=== PATIENT | male | born 1935 | race Caucasian/White ===

== ENCOUNTER → 2018-05-17 | Day surgery (SDC) | payer MEDICARE, BC ==
[2018-05-16 14:18] LABS: BASOPHILS # (AUTO) 0.1 (0.0-0.1); BASOPHILS % 0.4 % (0.0-1.0); EOSINOPHILS # (AUTO) 0.6 (0.0-0.4); EOSINOPHILS % 3.8 % (0.0-6.0); HEMATOCRIT 31.6 % (38.2-49.6); HEMOGLOBIN 9.6 g/dL (14.0-18.0); LYMPHOCYTES # (AUTO) 1.5 (1.0-3.2); LYMPHOCYTES % 10.1 % (18.0-39.1); MEAN CORPUSCULAR HEMOGLOBIN 23.9 pg (28-32); MEAN CORPUSCULAR HGB CONC 30.4 g/dL (31-35); MEAN CORPUSCULAR VOLUME 78.6 fL (81-99); MONOCYTES # (AUTO) 1.3 (0.2-0.8); MONOCYTES % 8.7 % (4.4-11.3); NEUTROPHILS % 76.2 % (38.7-80.0); PLATELET COUNT 228 x10e3/uL (140-360); RED BLOOD COUNT 4.02 x10e6/uL (4.3-5.7); RED CELL DISTRIBUTION WIDTH 17.2 % (11.7-14.4)
[2018-05-16 14:28] LABS: INR 1.07; PROTHROMBIN TIME 13.1 seconds (11.9-14.5)
[2018-05-16 14:37] LABS: ALBUMIN 3.7 g/dL (3.5-5.0); ALBUMIN/GLOBULIN RATIO 1.2 (0.8-2.0); ANION GAP 19.5 mmol/L (8-16); CALCIUM 9.5 mg/dL (8.4-10.2); CREATININE, SERUM 2.01 mg/dL (0.72-1.25); POTASSIUM 4.5 mmol/L (3.5-5.1)
[~2018-05-17] VITALS: Ht 177.8 cm; Wt 120.2 kg
[~2018-05-17] MED LIST: ADVAIR 250-501 EACH INH; ASPIRIN81 MG PO; DIOVAN HCT 1601 EAC1 PO; FENTANYL CITRATE/PF 100MCG/2 ML INJ ONE; FIBER LAXATIVE625 MG PO; FLUTICASONE TOP; FUROSEMIDE40 MG PO; GLIMEPIRIDE4 MG PO; HEPARIN SOD (PORCINE) 1000 UNIT/ML 30ML ONE; HEPARIN SOD/SOD CHLORIDE 2,000 ML ONE; IOPAMIDOL 300MG/ML 100 ML INFUS..BTL IV ONE; IOPAMIDOL 370 MG/ML 200 ML INFUS..BTL INJ ONE; JANUVIA100 MG PO; LIDOCAINE HCL 2% LOCAL 20 ML VIAL ONE; METFORMIN HCL1000 MG PO; METOLAZONE5 MG PO; METOPROLOL SUCC50 MG PO; MIDAZOLAM HCL 2 MG/2 ML VIAL ONE; MONTELUKAST SOD10 MG PO; NITROGLYCERIN 400 MCG/SPRAY 4.9 GM BTL ONE; NITROGLYCERIN/D5W 200 MCG/ML 250 ML ONE; PANTOPRAZOLE SO40 MG PO; PLAVIX75 MG PO; PRASUGREL 10 MG TAB ONE; SODIUM CHLORIDE 0.9% 1000ML 1,000 ML ONE; VERAPAMIL HCL 2.5 MG/ML 2 ML VIAL ONE; VESICARE5 MG PO; VYTORIN 10-401 EACH PO
--- OUTSIDE RECORDS SUMMARY | 2018-06-23 04:42 | XMS REPORT | CCD ---
Author Author [facility] Outpatient Imaging - [facility] - [place] Address Unknown Phone Unavailable Care Team Providers Care Resort Desk Clerk Name Role Phone Martin Pace CP Allergies, Adverse Reactions, Alerts Substance Reaction Status penicillin Active
--- OUTSIDE RECORDS SUMMARY | 2018-06-23 04:42 | XMS REPORT | Summary of Care ---
Author Author [facility] [place] Organization [facility] [place] Address Unknown Phone Unavailable Encounter HQ [email or web address]_cedrick(FIN) [id number] Date(s): 05/11/17 - 05/11/17 [facility] [place] [address] [place] [phone] Discharge Disposition: Home or Self Care Attending Physician: Rancho Pace MD Vital Signs No data available for this section Problem List Condition Effective Dates Status Health Status Informant Acute Resolved laryngopharyngitis(C onfirmed) Aortic Stenosis With Active Doming(Confirmed) Diabetes mellitus Active type II(Confirmed) 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) Hypertension(Confirm Resolved ed) Allergies, Adverse Reactions, Alerts Substance Reaction Severity Status penicillin Active Medications No data available for this section Results No data available for this section Immunizations No data available for this section Procedures No data available for this section Social History Social History Type Response Smoking Status Former smoker; Ready to change: No; Concerns about tobacco use in household: No; Exposure to Tobacco Smoke None; Cigarette Smoking Last 365 Days No; Reg Smoking Cessation Counseling No Assessment and Plan No data available for this section
--- OUTSIDE RECORDS SUMMARY | 2018-06-23 04:42 | XMS REPORT | Summary of Care ---
Author Organization Unknown Address Unknown Phone Unavailable Encounter HQ Encntr_cedrick(LUZMARIA) [id number] Date(s): 10/04/14 - 10/04/14 [facility] Outpatient Imaging - [place] [id number]- [facility] Discharge Disposition: Home Physician Attending: Rancho Pace MD Reason for Visit V70.0 - ROUTINE MEDICAL Problem List No data available for this section Allergies, Adverse Reactions, Alerts Substance Reaction Severity Status penicillin Active Medications No data available for this section Medications Administered During Your Visit No data available for this section Immunizations No data available for this section Social History Social History Type Response
--- OUTSIDE RECORDS SUMMARY | 2018-06-23 04:42 | XMS REPORT | Summary of Care ---
Author Author [facility] Organization [facility] Address Unknown Phone Unavailable Encounter MARCK Kelly(LUZMARIA) [id number] Date(s): 10/09/16 - 10/11/16 [facility] [address] [employer] provided by [employer] [facility] [employer] [place] [address]- Discharge Disposition: Home or Self Care Attending Physician: Bridget Herzog MD Admitting Physician: Bridget Herzog MD Referring Physician: Bridget Herzog MD Vital Signs 1 2 3 Most recent to oldest [Reference Range]: 177.8 cm (10/09/16 5:52 AM) Height 116.96 kg (10/11/16 6:23 AM) 119.682 kg (10/10/16 4:25 AM) Current Weight 99.0 DegF (10/11/16 8:17 AM) 99.2 DegF *HI* (10/11/16 7:45 AM) 98.1 DegF (10/11/16 6:23 AM) Temperature Oral [96.4-99.1 DegF] 126/75 mmHg (10/11/16 10:01 AM) 146/119 mmHg *HI* (10/11/16 9:00 AM) 142/71 mmHg *HI* (10/11/16 6:00 AM) Blood Pressure [90-140/60-90 mmHg] 18 BRMIN (10/11/16 6:00 AM) 18 BRMIN (10/11/16 5:10 AM) 20 BRMIN (10/11/16 4:04 AM) Respiratory Rate [14-20 BRMIN] 121.818 kg (10/09/16 5:52 AM) Weight 38.53 m2 (10/09/16 5:52 AM) Body Mass Index Problem List Condition Effective Dates Status Health Status Informant Acute Resolved laryngopharyngitis(C onfirmed) Aortic Stenosis With Active Doming(Confirmed) Diabetes mellitus Active type II(Confirmed) Hypertension(Confirm Resolved ed) Allergies, Adverse Reactions, Alerts Substance Reaction Severity Status penicillin Active Medications acetaminophen-hydrocodone 325 mg-5 mg oral tablet 1 tab, Route: PO, Drug Form: TAB, Dosing Weight 121.818, kg, Q4H, PRN Pain Score 4-6, Start date: 10/09/16 11:17:00 FITNESS ATTENDANT, Duration: 30 day, Stop date: 11/08 11:16:00 FITNESS ATTENDANT Notes: (Same as: Cutler 325/5) Do not exceed 4gm/day of acetaminophen. Start Date: 10/09/16 Stop Date: 10/11/16 Status: Discontinued acetaminophen-hydrocodone 325 mg-5 mg oral tablet 2 tab, Route: PO, Drug Form: TAB, Dosing Weight 121.818, kg, Q4H, PRN Pain Score 7-10, Start date: 10/09/16 11:17:00 FITNESS ATTENDANT, Duration: 30 day, Stop date: 11:16:00 FITNESS ATTENDANT Notes: (Same as: Cutler 325/5) Do not exceed 4gm/day of acetaminophen. Start Date: 10/09/16 Stop Date: 10/11/16 Status: Discontinued amLODIPine 5 mg, 1 tab, Route: PO, Drug form: TAB, Daily, Dosing Weight 121.818, kg, Start date: 10/10/16 9:00:00 FITNESS ATTENDANT, Duration: 30 day, Stop date: 11/08/16 9:00:00 FITNESS ATTENDANT Notes: (Same as: Norvasc) Start Date: 10/10/16 Stop Date: 10/11/16 Status: Discontinued amLODIPine 2.5 mg, 1 tab, Route: PO, Drug form: TAB, Daily, Dosing Weight 121.818, kg, Start date: 10/10/16 9:00:00 FITNESS ATTENDANT, Duration: 30 day, Stop date: 11/08/16 9:00:00 FITNESS ATTENDANT Notes: (Same as: Norvasc) Start Date: 10/10/16 Stop Date: 10/10/16 Status: Canceled amLODIPine 5 mg oral tablet 5 mg=1 tab, PO, Daily, # 30 tab, 3 Refill(s) Start Date: 10/11/16 Status: Ordered ANES dexamethasone 4 mg, 0.4 mL, Route: IVP, Drug form: INJ, ONCE, Dosing Weight 121.818, kg, PRN Nausea & Vomiting, Start date: 10/09/16 11:57:00 FITNESS ATTENDANT Notes: MEDICATION WASTE Product Size: 10 mgProduct Wasted: ___ mg Start Date: 10/09/16 Stop Date: 10/09/16 Status: Discontinued ANES fentaNYL 50 microgram, 1 mL, Route: IVP, Drug form: INJ, Q5Min, Dosing Weight 121.818, kg , PRN Pain Score 7-10, Priority: Routine, Start date: 10/09/16 11:57:00 FITNESS ATTENDANT, Duration: 2 doses or times, Stop date: Limited # of times Notes: (Same as: Sublimaze) Preservative free. Start Date: 10/09/16 Stop Date: 10/09/16 Status: Discontinued ANES fentaNYL 25 microgram, 0.5 mL, Route: IVP, Drug form: INJ, Q5Min, Dosing Weight 121.818, kg, PRN Pain Score 4-6, Priority: Routine, Start date: 10/09/16 11:57:00 FITNESS ATTENDANT, Duration: 4 doses or times, Stop date: Limited # of times Notes: (Same as: Sublimaze) Preservative free. Start Date: 10/09/16 Stop Date: 10/09/16 Status: Discontinued ANES hydrALAZINE 10 mg, 0.5 mL, Route: IVP, Drug form: INJ, Q20Min, Dosing Weight 121.818, kg, PRN Elevated BP, Start date: 10/09/16 11:57:00 FITNESS ATTENDANT, Duration: 2 doses or times, Stop date: Limited # of times Notes: (Same as: Apresoline)Push over 5 minutes Start Date: 10/09/16 Stop Date: 10/09/16 Status: Discontinued ANES labetalol 10 mg, 2 mL, Route: IVP, Drug form: INJ, Q5Min, Dosing Weight 121.818, kg, PRN Elevated BP, Start date: 10/09/16 11:57:00 FITNESS ATTENDANT, Duration: 5 doses or times, Stop date: Limited # of times Start Date: 10/09/16 Stop Date: 10/09/16 Status: Discontinued ANES ondansetron 4 mg, 2 mL, Route: IVP, Drug form: INJ, ONCE, Dosing Weight 121.818, kg, PRN Nausea & Vomiting, Start date: 10/09/16 11:57:00 FITNESS ATTENDANT Notes: (Same as: Zofran) MEDICATION WASTE Product Size: 4 mgProduct Wasted: ___ mg Start Date: 10/09/16 Stop Date: 10/09/16 Status: Discontinued ANES promethazine 6.25 mg, 0.13 mL, Route: IVPB, Drug form: INJ, ONCE, Dosing Weight 121.818, kg, PRN Nausea & Vomiting, Start date: 10/09/16 11:57:00 FITNESS ATTENDANT Notes: (Same as: Phenergan) Start Date: 10/09/16 Stop Date: 10/09/16 Status: Discontinued aspirin 81 mg tablet, enteric coated 81 mg, 1 tab, Route: PO, Drug form: ECTAB, Daily, Dosing Weight 121.818, kg, Start date: 10/10/16 9:00:00 FITNESS ATTENDANT, Duration: 30 day, Stop date: 11/08/16 9:00:00 FITNESS ATTENDANT Notes: Do not crush or chew.(Same As: Ecotrin) Start Date: 10/10/16 Stop Date: 10/11/16 Status: Discontinued calcium gluconate + sodium chloride 0.9% INJ 100 mL 3 gm, 30 mL, Route: IVPB, PRN, Dosing Weight 121.818, kg, PRN Abnormal Lab Result, For NON-ICU Patients Only., Start date: 10/09/16 14:52:00 FITNESS ATTENDANT, Duration : 30 day, Stop date: 11/08/16 14:51:00 FITNESS ATTENDANT Notes: WASTE: F/P - Sink; E - Municipal Trash Bin Start Date: 10/09/16 Stop Date: 10/11/16 Status: Discontinued calcium gluconate + sodium chloride 0.9% INJ 100 mL 2 gm, 20 mL, Route: IVPB, PRN, Dosing Weight 121.818, kg, PRN Abnormal Lab Result, For NON-ICU Patients Only., Start date: 10/09/16 14:52:00 FITNESS ATTENDANT, Duration : 30 day, Stop date: 11/08/16 14:51:00 FITNESS ATTENDANT Notes: WASTE: F/P - Sink; E - Municipal Trash Bin Start Date: 10/09/16 Stop Date: 10/11/16 Status: Discontinued cloNIDine 0.2 mg oral tablet 0.2 mg, 2 tab, Route: PO, Drug form: TAB, Daily, Dosing Weight 121.818, kg, Start date: 10/10/16 9:00:00 FITNESS ATTENDANT, Duration: 30 day, Stop date: 11/08/16 9:00:00 FITNESS ATTENDANT Notes: (Same As: Catapres) Start Date: 10/10/16 Stop Date: 10/10/16 Status: Canceled clopidogrel 75 mg, 1 tab, Route: PO, Drug form: TAB, Daily, Dosing Weight 121.818, kg, Start date: 10/10/16 9:00:00 FITNESS ATTENDANT, Duration: 30 day, Stop date: 11/08/16 9:00:00 FITNESS ATTENDANT Notes: (Same As: Plavix) Start Date: 10/10/16 Stop Date: 10/11/16 Status: Discontinued clopidogrel 75 mg oral tablet 75 mg=1 tab, PO, Daily, # 90 tab, 0 Refill(s) Start Date: 10/11/16 Status: Ordered Detrol LA 4 mg, 2 tab, Route: PO, Drug form: TAB, Daily, Start date: 10/10/16 9:00:00 FITNESS ATTENDANT , Stop date: 11/08/16 9:00:00 FITNESS ATTENDANT Notes: (Same As: Detrol) Start Date: 10/10/16 Stop Date: 10/11/16 Status: Discontinued Dextrose 50% Syringe 12.5 gm, 25 mL, Route: IVP, Drug Form: INJ, Dosing Weight 121.818, kg, PRN, PRN Blood Glucose Results, Start date: 10/10/16 21:46:00 FITNESS ATTENDANT, Duration: 30 day, Stop date: 11/09/16 21:45:00 FITNESS ATTENDANT Start Date: 10/10/16 Stop Date: 10/11/16 Status: Discontinued Dextrose 50% Syringe 25 gm, 50 mL, Route: IVP, Drug Form: INJ, Dosing Weight 121.818, kg, PRN, PRN Blood Glucose Results, Start date: 10/10/16 21:46:00 FITNESS ATTENDANT, Duration: 30 day, Stop date: 11/09/16 21:45:00 FITNESS ATTENDANT Start Date: 10/10/16 Stop Date: 10/11/16 Status: Discontinued Dextrose 50% Syringe 12.5 gm, 25 mL, Route: IVP, Drug Form: INJ, Dosing Weight 121.818, kg, PRN, PRN Blood Glucose Results, Start date: 10/10/16 11:21:00 FITNESS ATTENDANT, Duration: 30 day, Stop date: 11/09/16 11:20:00 FITNESS ATTENDANT Start Date: 10/10/16 Stop Date: 10/11/16 Status: Discontinued Dextrose 50% Syringe 25 gm, 50 mL, Route: IVP, Drug Form: INJ, Dosing Weight 121.818, kg, PRN, PRN Blood Glucose Results, Start date: 10/10/16 11:21:00 FITNESS ATTENDANT, Duration: 30 day, Stop date: 11/09/16 11:20:00 FITNESS ATTENDANT Start Date: 10/10/16 Stop Date: 10/11/16 Status: Discontinued Dextrose 50% Syringe 25 mL, Route: IVP, Dosing Weight 121.818, kg, PRN, PRN Blood Glucose Results, Start date: 10/10/16 11:45:00 FITNESS ATTENDANT, Duration: 30 day, Stop date: 11/09/16 11:44: 00 FITNESS ATTENDANT Start Date: 10/10/16 Stop Date: 10/10/16 Status: Discontinued Dextrose 50% Syringe 50 mL, Route: IVP, Dosing Weight 121.818, kg, PRN, PRN Blood Glucose Results, Start date: 10/10/16 11:45:00 FITNESS ATTENDANT, Duration: 30 day, Stop date: 11/09/16 11:44: 00 FITNESS ATTENDANT Start Date: 10/10/16 Stop Date: 10/10/16 Status: Discontinued Diovan 160 mg, 2 tab, Route: PO, Drug form: TAB, Daily, Start date: 10/10/16 9:00:00 FITNESS ATTENDANT, Duration: 30 day, Stop date: 11/08/16 9:00:00 FITNESS ATTENDANT Notes: Same as Diovan Start Date: 10/10/16 Stop Date: 10/11/16 Status: Discontinued ezetimibe 10 mg oral tablet 10 mg=1 tab, PO, Daily, 0 Refill(s) Start Date: 10/11/16 Status: Ordered ezetimibe-simvastatin 10/40 1 tab, Route: PO, Drug Form: TAB, Dosing Weight 121.818, kg, Daily, Start date: 10/10/16 9:00:00 FITNESS ATTENDANT, Duration: 30 day, Stop date: 11/08/16 9:00:00 FITNESS ATTENDANT Start Date: 10/10/16 Stop Date: 10/09/16 Status: Deleted furosemide 40 mg oral tablet 40 mg=1 tab, PO, BID, # 60 tab, 3 Refill(s) Start Date: 10/11/16 Status: Ordered furosemide 40 mg oral tablet 40 mg, 1 tab, Route: PO, Drug form: TAB, BID, Dosing Weight 121.818, kg, Start date: 10/09/16 17:00:00 FITNESS ATTENDANT, Duration: 30 day, Stop date: 11/08/16 9:00:00 FITNESS ATTENDANT Notes: (Same as: Lasix) May cause GI upset. Give with food or milk. Start Date: 10/09/16 Stop Date: 10/11/16 Status: Discontinued glimepiride 4 mg, 2 tab, Route: PO, Drug form: TAB, Daily, Dosing Weight 121.818, kg, Start date: 10/10/16 9:00:00 FITNESS ATTENDANT, Duration: 30 day, Stop date: 11/08/16 9:00:00 FITNESS ATTENDANT Notes: (Same as: Amaryl) Start Date: 10/10/16 Stop Date: 10/11/16 Status: Discontinued glucagon 1 mg, Route: IM, Drug form: PDR/INJ, PRN, Dosing Weight 121.818, kg, PRN Blood Glucose Results, Start date: 10/10/16 21:46:00 FITNESS ATTENDANT, Duration: 30 day, Stop date : 11/09/16 21:45:00 FITNESS ATTENDANT Start Date: 10/10/16 Stop Date: 10/11/16 Status: Discontinued glucagon 1 mg, Route: IM, Drug form: PDR/INJ, PRN, Dosing Weight 121.818, kg, PRN Blood Glucose Results, Start date: 10/10/16 11:21:00 FITNESS ATTENDANT, Duration: 30 day, Stop date : 11/09/16 11:20:00 FITNESS ATTENDANT Start Date: 10/10/16 Stop Date: 10/11/16 Status: Discontinued glucagon 1 mg, Route: IM, PRN, Dosing Weight 121.818, kg, PRN Blood Glucose Results, Start date: 10/10/16 11:45:00 FITNESS ATTENDANT, Duration: 30 day, Stop date: 11/09/16 11:44: 00 FITNESS ATTENDANT Start Date: 10/10/16 Stop Date: 10/10/16 Status: Discontinued hydrALAZINE 10 mg, 0.5 mL, Route: IV, Drug form: INJ, Q4H, Dosing Weight 121.818, kg, PRN Elevated BP, Start date: 10/11/16 2:32:00 FITNESS ATTENDANT, Duration: 30 day, Stop date: 2:31:00 FITNESS ATTENDANT Notes: (Same as: Apresoline)Push over 5 minutes Start Date: 10/11/16 Stop Date: 10/11/16 Status: Discontinued hydrALAZINE 10 mg, 0.5 mL, Route: IVP, Drug form: INJ, Q6H, Dosing Weight 121.818, kg, PRN Other -See Comment, for SBP > 160, Start date: 10/10/16 23:57:00 FITNESS ATTENDANT, Duration: 30 day, Stop date: 11/09/16 23:56:00 FITNESS ATTENDANT Notes: (Same as: Apresoline)Push over 5 minutes Start Date: 10/10/16 Stop Date: 10/11/16 Status: Discontinued hydrochlorothiazide 25 mg oral tablet 25 mg, 1 tab, Route: PO, Drug form: TAB, Daily, Start date: 10/10/16 9:00:00 FITNESS ATTENDANT , Duration: 30 day, Stop date: 11/08/16 9:00:00 FITNESS ATTENDANT Notes: (Same as: Hydrodiuril) With food. Start Date: 10/10/16 Stop Date: 10/11/16 Status: Discontinued hydrochlorothiazide 25 mg oral tablet 25 mg=1 tab, PO, Daily, # 30 tab, 1 Refill(s) Start Date: 10/11/16 Status: Ordered hydrochlorothiazide-valsartan 25 mg-160 mg oral tablet 1 tab, Route: PO, Drug Form: TAB, Dosing Weight 121.818, kg, Daily, Start date: 10/10/16 9:00:00 FITNESS ATTENDANT, Duration: 30 day, Stop date: 11/08/16 9:00:00 FITNESS ATTENDANT Start Date: 10/10/16 Stop Date: 10/09/16 Status: Deleted hydrochlorothiazide-valsartan 25 mg-160 mg oral tablet 1 tab, PO, Daily, # 90 tab, 1 Refill(s) Start Date: 10/09/16 Stop Date: 10/11/16 Status: Discontinued insulin aspart 1 unit, 0.01 mL, Route: SUB-Q, Drug form: SOLN, Bedtime, Dosing Weight 121.818, kg, PRN Blood Glucose Results, Start date: 10/10/16 21:46:00 FITNESS ATTENDANT, Duration: 30 day, Stop date: 11/09/16 21:45:00 FITNESS ATTENDANT Notes: Roll in palms of hands gently; Do not shake vigorously. (Same as: First Class EV Conversions)"single patient use only"WASTE: F/P - Black; E - Municipal Trash Bin Stable for 28 days at room temperature.Expires in days from Date Start Date: 10/10/16 Stop Date: 10/11/16 Status: Discontinued insulin aspart 2 unit, 0.02 mL, Route: SUB-Q, Drug form: SOLN, Bedtime, Dosing Weight 121.818, kg, PRN Blood Glucose Results, Start date: 10/10/16 21:46:00 FITNESS ATTENDANT, Duration: 30 day, Stop date: 11/09/16 21:45:00 FITNESS ATTENDANT Notes: Roll in palms of hands gently; Do not shake vigorously. (Same as: First Class EV Conversions)"single patient use only"WASTE: F/P - Black; E - Municipal Trash Bin Stable for 28 days at room temperature.Expires in days from Date Start Date: 10/10/16 Stop Date: 10/11/16 Status: Discontinued insulin aspart 3 unit, 0.03 mL, Route: SUB-Q, Drug form: SOLN, Bedtime, Dosing Weight 121.818, kg, PRN Blood Glucose Results, Start date: 10/10/16 21:46:00 FITNESS ATTENDANT, Duration: 30 day, Stop date: 11/09/16 21:45:00 FITNESS ATTENDANT Notes: Roll in palms of hands gently; Do not shake vigorously. (Same as: First Class EV Conversions)"single patient use only"WASTE: F/P - Black; E - Municipal Trash Bin Stable for 28 days at room temperature.Expires in days from Date Start Date: 10/10/16 Stop Date: 10/11/16 Status: Discontinued insulin aspart 4 unit, 0.04 mL, Route: SUB-Q, Drug form: SOLN, Bedtime, Dosing Weight 121.818, kg, PRN Blood Glucose Results, Start date: 10/10/16 21:46:00 FITNESS ATTENDANT, Duration: 30 day, Stop date: 11/09/16 21:45:00 FITNESS ATTENDANT Notes: Roll in palms of hands gently; Do not shake vigorously. (Same as: NovoLOG)"single patient use only"WASTE: F/P - Black; E - Municipal Trash Bin Stable for 28 days at room temperature.Expires in days from Date Start Date: 10/10/16 Stop Date: 10/11/16 Status: Discontinued insulin aspart 6 unit, 0.06 mL, Route: SUB-Q, Drug form: SOLN, TID-Before Meals, Dosing Weight 121.818, kg, PRN Blood Glucose Results, Start date: 10/10/16 11:21:00 FITNESS ATTENDANT, Duration: 30 day, Stop date: 11/09/16 11:20:00 FITNESS ATTENDANT Notes: Roll in palms of hands gently; Do not shake vigorously. (Same as: NovoLOG)"single patient use only"WASTE: F/P - Black; E - Municipal Trash Bin Stable for 28 days at room temperature.Expires in days from Date Start Date: 10/10/16 Stop Date: 10/10/16 Status: Discontinued insulin aspart 8 unit, 0.08 mL, Route: SUB-Q, Drug form: SOLN, TID-Before Meals, Dosing Weight 121.818, kg, PRN Blood Glucose Results, Start date: 10/10/16 11:21:00 FITNESS ATTENDANT, Duration: 30 day, Stop date: 11/09/16 11:20:00 FITNESS ATTENDANT Notes: Roll in palms of hands gently; Do not shake vigorously. (Same as: NovoLOG)"single patient use only"WASTE: F/P - Black; E - Municipal Trash Bin Stable for 28 days at room temperature.Expires in days from Date Start Date: 10/10/16 Stop Date: 10/10/16 Status: Discontinued insulin aspart 10 unit, 0.1 mL, Route: SUB-Q, Drug form: SOLN, TID-Before Meals, Dosing Weight 121.818, kg, PRN Blood Glucose Results, Start date: 10/10/16 11:21:00 FITNESS ATTENDANT, Duration: 30 day, Stop date: 11/09/16 11:20:00 FITNESS ATTENDANT Notes: Roll in palms of hands gently; Do not shake vigorously. (Same as: First Class EV Conversions)"single patient use only"WASTE: F/P - Black; E - Municipal Trash Bin Stable for 28 days at room temperature.Expires in days from Date Start Date: 10/10/16 Stop Date: 10/10/16 Status: Discontinued insulin aspart 2 unit, 0.02 mL, Route: SUB-Q, Drug form: SOLN, TID-Before Meals, Dosing Weight 121.818, kg, PRN Blood Glucose Results, Start date: 10/10/16 11:21:00 FITNESS ATTENDANT, Duration: 30 day, Stop date: 11/09/16 11:20:00 FITNESS ATTENDANT Notes: Roll in palms of hands gently; Do not shake vigorously. (Same as: First Class EV Conversions)"single patient use only"WASTE: F/P - Black; E - Municipal Trash Bin Stable for 28 days at room temperature.Expires in days from Date Start Date: 10/10/16 Stop Date: 10/10/16 Status: Discontinued insulin aspart 4 unit, 0.04 mL, Route: SUB-Q, Drug form: SOLN, TID-Before Meals, Dosing Weight 121.818, kg, PRN Blood Glucose Results, Start date: 10/10/16 11:21:00 FITNESS ATTENDANT, Duration: 30 day, Stop date: 11/09/16 11:20:00 FITNESS ATTENDANT Notes: Roll in palms of hands gently; Do not shake vigorously. (Same as: NovoLOG)"single patient use only"WASTE: F/P - Black; E - Municipal Trash Bin Stable for 28 days at room temperature.Expires in days from Date Start Date: 10/10/16 Stop Date: 10/10/16 Status: Discontinued insulin aspart 2 unit, 0.02 mL, Route: SUB-Q, Drug form: SOLN, TID-Before Meals, Dosing Weight 121.818, kg, PRN Blood Glucose Results, Start date: 10/10/16 11:45:00 FITNESS ATTENDANT, Duration: 30 day, Stop date: 11/09/16 11:44:00 FITNESS ATTENDANT Notes: Roll in palms of hands gently; Do not shake vigorously. (Same as: NovoLOG)"single patient use only"WASTE: F/P - Black; E - Municipal Trash Bin Stable for 28 days at room temperature.Expires in days from Date Start Date: 10/10/16 Stop Date: 10/11/16 Status: Discontinued insulin aspart 3 unit, 0.03 mL, Route: SUB-Q, Drug form: SOLN, TID-Before Meals, Dosing Weight 121.818, kg, PRN Blood Glucose Results, Start date: 10/10/16 11:45:00 FITNESS ATTENDANT, Duration: 30 day, Stop date: 11/09/16 11:44:00 FITNESS ATTENDANT Notes: Roll in palms of hands gently; Do not shake vigorously. (Same as: NovoLOG)"single patient use only"WASTE: F/P - Black; E - Municipal Trash Bin Stable for 28 days at room temperature.Expires in days from Date Start Date: 10/10/16 Stop Date: 10/11/16 Status: Discontinued insulin aspart 4 unit, 0.04 mL, Route: SUB-Q, Drug form: SOLN, TID-Before Meals, Dosing Weight 121.818, kg, PRN Blood Glucose Results, Start date: 10/10/16 11:45:00 FITNESS ATTENDANT, Duration: 30 day, Stop date: 11/09/16 11:44:00 FITNESS ATTENDANT Notes: Roll in palms of hands gently; Do not shake vigorously. (Same as: NovoLOG)"single patient use only"WASTE: F/P - Black; E - Municipal Trash Bin Stable for 28 days at room temperature.Expires in days from Date Start Date: 10/10/16 Stop Date: 10/11/16 Status: Discontinued insulin aspart 5 unit, 0.05 mL, Route: SUB-Q, Drug form: SOLN, TID-Before Meals, Dosing Weight 121.818, kg, PRN Blood Glucose Results, Start date: 10/10/16 11:45:00 FITNESS ATTENDANT, Duration: 30 day, Stop date: 11/09/16 11:44:00 FITNESS ATTENDANT Notes: Roll in palms of hands gently; Do not shake vigorously. (Same as: NovoLOG)"single patient use only"WASTE: F/P - Black; E - Municipal Trash Bin Stable for 28 days at room temperature.Expires in days from Date Start Date: 10/10/16 Stop Date: 10/11/16 Status: Discontinued insulin aspart 1 unit, 0.01 mL, Route: SUB-Q, Drug form: SOLN, TID-Before Meals, Dosing Weight 121.818, kg, PRN Blood Glucose Results, Start date: 10/10/16 11:45:00 FITNESS ATTENDANT, Duration: 30 day, Stop date: 11/09/16 11:44:00 FITNESS ATTENDANT Notes: Roll in palms of hands gently; Do not shake vigorously. (Same as: NovoLOG)"single patient use only"WASTE: F/P - Black; E - Municipal Trash Bin Stable for 28 days at room temperature.Expires in days from Date Start Date: 10/10/16 Stop Date: 10/11/16 Status: Discontinued Januvia 100 mg, 2 tab, Route: PO, Drug form: TAB, Daily, Dosing Weight 121.818, kg, Start date: 10/10/16 9:00:00 FITNESS ATTENDANT, Duration: 30 day, Stop date: 11/08/16 9:00:00 FITNESS ATTENDANT Notes: Same as Elioia Non-Formulary Item Start Date: 10/10/16 Stop Date: 10/11/16 Status: Discontinued magnesium oxide 800 mg, 2 tab, Route: PO, Drug form: TAB, PRN, Dosing Weight 121.818, kg, PRN Abnormal Lab Result, For NON-ICU Patients Only., Start date: 10/09/16 14:52:00 FITNESS ATTENDANT, Duration: 30 day, Stop date: 11/08/16 14:51:00 FITNESS ATTENDANT Notes: (Same as: Mag-Ox 400)Magnesium oxide [id number] elemental magnesiumDose= ____mg magnesium oxide (___mg elemental magnesium) Start Date: 10/09/16 Stop Date: 10/11/16 Status: Discontinued magnesium sulfate 2 gm, 50 mL, Route: IVPB, Drug form: INJ, PRN, Dosing Weight 121.818, kg, PRN Abnormal Lab Result, For NON-ICU Patients Only., Start date: 10/09/16 14:52:00 FITNESS ATTENDANT, Duration: 30 day, Stop date: 11/08/16 14:51:00 FITNESS ATTENDANT Notes: WASTE: F/P - Sink; E - Municipal Trash Bin Start Date: 10/09/16 Stop Date: 10/11/16 Status: Discontinued magnesium sulfate 1 gm, 100 mL, Route: IVPB, Drug form: INJ, PRN, Dosing Weight 121.818, kg, PRN Abnormal Lab Result, For NON-ICU Patients Only., Start date: 10/09/16 14:52:00 FITNESS ATTENDANT, Duration: 30 day, Stop date: 11/08/16 14:51:00 FITNESS ATTENDANT Notes: WASTE: F/P - Sink; E - Municipal Trash Bin Start Date: 10/09/16 Stop Date: 10/11/16 Status: Discontinued metoprolol tartrate 12.5 mg, 1 tab, Route: PO, Drug form: TAB, BID, Dosing Weight 121.818, kg, Start date: 10/11/16 17:00:00 FITNESS ATTENDANT, Duration: 30 day, Stop date: 11/10/16 9:00: 00 FITNESS ATTENDANT Notes: (Same as: Lopressor) 12.5mg=1/4 X 50 mg tab. Start Date: 10/11/16 Stop Date: 10/11/16 Status: Canceled metoprolol tartrate 25 mg oral tablet 12.5 mg=0.5 tab, PO, BID, # 15 tab, 1 Refill(s) Start Date: 10/11/16 Status: Ordered montelukast 10 mg, 1 tab, Route: PO, Drug form: TAB, Daily, Dosing Weight 121.818, kg, Start date: 10/10/16 9:00:00 FITNESS ATTENDANT, Duration: 30 day, Stop date: 11/08/16 9:00:00 FITNESS ATTENDANT Notes: (Same as:Tello) Start Date: 10/10/16 Stop Date: 10/10/16 Status: Discontinued omeprazole 20 mg, Route: PO, Drug form: DRC, Daily, Dosing Weight 121.818, kg, Start date: 10/10/16 9:00:00 FITNESS ATTENDANT, Duration: 30 day, Stop date: 11/08/16 9:00:00 FITNESS ATTENDANT Start Date: 10/10/16 Stop Date: 10/09/16 Status: Deleted ondansetron 4 mg, 2 mL, Route: IVP, Drug form: INJ, Q8H, Dosing Weight 121.818, kg, PRN Nausea & Vomiting, Start date: 10/09/16 11:17:00 FITNESS ATTENDANT, Duration: 30 day, Stop date: 11/08/16 11:16:00 FITNESS ATTENDANT Notes: (Same as: David) MEDICATION WASTE Product Size: 4 mgProduct Wasted: ___ mg Start Date: 10/09/16 Stop Date: 10/11/16 Status: Discontinued pantoprazole 40 mg oral enteric coated tablet 40 mg=1 tab, PO, Daily, # 30 tab, 0 Refill(s) Start Date: 10/11/16 Status: Ordered potassium chloride 10 mEq, 50 mL, Route: IVPB, Drug form: INJ, PRN, Dosing Weight 121.818, kg, PRN Abnormal Lab Result, For NON-ICU Patients Only, Start date: 10/09/16 14:52:00 FITNESS ATTENDANT, Duration: 30 day, Stop date: 11/08/16 14:51:00 FITNESS ATTENDANT Notes: (Same as: KCL) Infuse over 2 hours. Start Date: 10/09/16 Stop Date: 10/11/16 Status: Discontinued potassium chloride 20 mEq, 15 mL, Route: NJ, Drug form: LIQ, PRN, Dosing Weight 121.818, kg, PRN Abnormal Lab Result, For NON-ICU Patients Only, Start date: 10/09/16 14:52:00 FITNESS ATTENDANT, Duration: 30 day, Stop date: 11/08/16 14:51:00 FITNESS ATTENDANT Notes: (Same as: Potassium Chloride) Start Date: 10/09/16 Stop Date: 10/11/16 Status: Discontinued potassium chloride 20 mEq, 1 tab, Route: PO, Drug form: ERTAB, PRN, Dosing Weight 121.818, kg, PRN Abnormal Lab Result, For NON-ICU Patients Only, Start date: 10/09/16 14:52:00 FITNESS ATTENDANT, Duration: 30 day, Stop date: 11/08/16 14:51:00 FITNESS ATTENDANT Notes: (Same as: K-Dur 20)"Do Not Crush" With food and full glass of water Start Date: 10/09/16 Stop Date: 10/11/16 Status: Discontinued potassium phosphate + sodium chloride 0.9% INJ 250 mL 30 mmol, 10 mL, Route: IVPB, PRN, Dosing Weight 121.818, kg, PRN Abnormal Lab Result, For NON-ICU Patients Only., Start date: 10/09/16 14:52:00 FITNESS ATTENDANT, Duration : 30 day, Stop date: 11/08/16 14:51:00 FITNESS ATTENDANT Notes: (Same as: K Phosphate.) 1 mMol phoshate has 1.47 mEq potassium Infuse over 4 hours Start Date: 10/09/16 Stop Date: 10/11/16 Status: Discontinued potassium phosphate + sodium chloride 0.9% INJ 250 mL 15 mmol, 5 mL, Route: IVPB, PRN, Dosing Weight 121.818, kg, PRN Abnormal Lab Result, For NON-ICU Patients Only., Start date: 10/09/16 14:52:00 FITNESS ATTENDANT, Duration : 30 day, Stop date: 11/08/16 14:51:00 FITNESS ATTENDANT Notes: (Same as: K Phosphate.) 1 mMol phoshate has 1.47 mEq potassium Infuse over 4 hours Start Date: 10/09/16 Stop Date: 10/11/16 Status: Discontinued potassium phosphate-sodium phosphate 250 mg-280 mg-160 mg oral powder for reconstitution 2 pkt, Route: PO, Drug Form: PDR/REC, Dosing Weight 121.818, kg, PRN, PRN Abnormal Lab Result, For NON-ICU Patients Only, Start date: 10/09/16 14:52:00 FITNESS ATTENDANT, Duration: 30 day, Stop date: 11/08/16 14:51:00 FITNESS ATTENDANT Notes: (Same as: Phos-NaK) Each 1.5 gm pkt has 250mg phosphorous. Mix w/2.5oz water and stir. Start Date: 10/09/16 Stop Date: 10/11/16 Status: Discontinued Protonix 40 mg, 1 tab, Route: PO, Drug form: ECTAB, Daily, Start date: 10/10/16 9:00:00 FITNESS ATTENDANT, Duration: 30 day, Stop date: 11/08/16 9:00:00 FITNESS ATTENDANT Notes: Tablet should not be chewed or crushed.(Same as: Protonix) Start Date: 10/10/16 Stop Date: 10/11/16 Status: Discontinued simvastatin 40 mg oral tablet 40 mg=1 tab, PO, Bedtime, # 30 tab, 0 Refill(s) Start Date: 10/11/16 Status: Ordered Singulair 10 mg, 1 tab, Route: PO, Drug form: TAB, Bedtime, Dosing Weight 121.818, kg, Start date: 10/10/16 21:00:00 FITNESS ATTENDANT, Duration: 30 day, Stop date: 11/08/16 21:00: 00 FITNESS ATTENDANT Notes: (Same as:Singulair) Start Date: 10/10/16 Stop Date: 10/11/16 Status: Discontinued sodium chloride 0.9% 1000 ml INJ 750 mL 750 mL, Rate: 75 ml/hr, Infuse over: 10 hr, Route: IV, Dosing Weight 121.818 kg , Total Volume: 750, Start date: 10/09/16 11:17:00 FITNESS ATTENDANT, Duration: 10 hr, Stop date: 10/09/16 21:16:00 FITNESS ATTENDANT Start Date: 10/09/16 Stop Date: 10/09/16 Status: Completed sodium phosphate + sodium chloride 0.9% INJ 250 mL 30 mmol, 10 mL, Route: IVPB, PRN, Dosing Weight 121.818, kg, PRN Abnormal Lab Result, For NON-ICU Patients Only., Start date: 10/09/16 14:52:00 FITNESS ATTENDANT, Duration : 30 day, Stop date: 11/08/16 14:51:00 FITNESS ATTENDANT Start Date: 10/09/16 Stop Date: 10/11/16 Status: Discontinued sodium phosphate + sodium chloride 0.9% INJ 250 mL 15 mmol, 5 mL, Route: IVPB, PRN, Dosing Weight 121.818, kg, PRN Abnormal Lab Result, For NON-ICU Patients Only., Start date: 10/09/16 14:52:00 FITNESS ATTENDANT, Duration : 30 day, Stop date: 11/08/16 14:51:00 FITNESS ATTENDANT Start Date: 10/09/16 Stop Date: 10/11/16 Status: Discontinued tolterodine 2 mg oral tablet 4 mg=2 tab, PO, Daily, # 30 tab, 0 Refill(s) Start Date: 10/11/16 Status: Ordered Tylenol 650 mg, 2 tab, Route: PO, Drug form: TAB, Q6H, Dosing Weight 121.818, kg, PRN Pain 1-3/Temp > 100.4 F, Start date: 10/10/16 16:55:00 FITNESS ATTENDANT, Duration: 30 day, Stop date: 11/09/16 16:54:00 FITNESS ATTENDANT Notes: Do not exceed 4 gm/day. (Same as: Tylenol) Start Date: 10/10/16 Stop Date: 10/11/16 Status: Discontinued valsartan 80 mg oral tablet 160 mg=2 tab, PO, Daily, # 30 tab, 0 Refill(s) Start Date: 10/11/16 Status: Ordered VESIcare 5 mg, Route: PO, Drug form: TAB, Daily, Dosing Weight 121.818, kg, Start date: 10/10/16 9:00:00 FITNESS ATTENDANT, Duration: 30 day, Stop date: 11/08/16 9:00:00 FITNESS ATTENDANT Start Date: 10/10/16 Stop Date: 10/09/16 Status: Deleted VESIcare 5 mg oral tablet 5 mg=1 tab, PO, Daily, # 30 tab, 0 Refill(s) Start Date: 10/09/16 Status: Ordered Zetia 10 mg, 1 tab, Route: PO, Drug form: TAB, Daily, Start date: 10/10/16 9:00:00 FITNESS ATTENDANT , Duration: 30 day, Stop date: 11/08/16 9:00:00 FITNESS ATTENDANT Notes: (Same as: Zetia) Start Date: 10/10/16 Stop Date: 10/11/16 Status: Discontinued Zocor 40 mg, 1 tab, Route: PO, Drug form: TAB, Bedtime, Start date: 10/09/16 21:00:00 FITNESS ATTENDANT, Duration: 30 day, Stop date: 11/07/16 21:00:00 FITNESS ATTENDANT Notes: (Same as: Zocor) Start Date: 10/09/16 Stop Date: 10/11/16 Status: Discontinued Results BLOOD BANK RESULTS 1 2 3 Most recent to oldest [Reference Range]: O POS *Unknown* (10/09/16 6:38 AM) ABO/Rh Negative (10/09/16 6:38 AM) Antibody Scrn Product available (10/09/16 6:38 AM) FFP product Product available (10/09/16 6:38 AM) RBC product ELECTROLYTES 1 2 3 Most recent to oldest [Reference Range]: 136 mEq/L (10/11/16 2:19 AM) 139 mEq/L (10/10/16 3:51 AM) 140 mEq/L (10/09/16 1:32 PM) Sodium Lvl [135-145 mEq/L] 3.7 mEq/L (10/11/16 2:19 AM) 3.9 mEq/L (10/10/16 3:51 AM) 3.8 mEq/L (10/09/16 1:32 PM) Potassium Lvl [3.5-5.1 mEq/L] 101 mEq/L (10/11/16 2:19 AM) 103 mEq/L (10/10/16 3:51 AM) 105 mEq/L (10/09/16 1:32 PM) Chloride Lvl [95-109 mEq/L] 24 mEq/L (10/11/16 2:19 AM) 25 mEq/L (10/10/16 3:51 AM) 29 mEq/L (10/09/16 1:32 PM) CO2 [24-32 mEq/L] 14.7 mEq/L (10/11/16 2:19 AM) 14.9 mEq/L (10/10/16 3:51 AM) 9.8 mEq/L *LOW* (10/09/16 1:32 PM) AGAP [10.0-20.0 mEq/L] CHEM PANEL 1 2 3 Most recent to oldest [Reference Range]: 1.15 mg/dL (10/11/16 2:19 AM) 1.14 mg/dL (10/10/16 3:51 AM) 1.29 mg/dL (10/09/16 1:32 PM) Creatinine Lvl [0.50-1.40 mg/dL] 60 mL/min/1.73m2 1 *NA* (10/11/16 2:19 AM) 60 mL/min/1.73m2 2 *NA* (10/10/16 3:51 AM) 52 mL/min/1.73m2 3 *NA* (10/09/16 1:32 PM) eGFR 13 mg/dL (10/11/16 2:19 AM) 15 mg/dL (10/10/16 3:51 AM) 23 mg/dL *HI* (10/09/16 1:32 PM) BUN [7-22 mg/dL] 18 (10/09/16 5:54 AM) B/C Ratio [6-25] 190 mg/dL *HI* (10/11/16 2:19 AM) 203 mg/dL *HI* (10/10/16 3:51 AM) 165 mg/dL *HI* (10/09/16 1:32 PM) Glucose Lvl [70-99 mg/dL] 7.0 g/dL (10/09/16 5:54 AM) Total Protein [6.4-8.4 g/dL] 3.7 g/dL (10/09/16 5:54 AM) Albumin Lvl [3.5-5.0 g/dL] 3.3 g/dL (10/09/16 5:54 AM) Globulin [2.7-4.2 g/dL] 1.1 (10/09/16 5:54 AM) A/G Ratio [0.7-1.6] 8.7 mg/dL (10/11/16 2:19 AM) 8.1 mg/dL *LOW* (10/10/16 3:51 AM) 8.3 mg/dL *LOW* (10/09/16 1:32 PM) Calcium Lvl [8.5-10.5 mg/dL] 1.7 mg/dL *LOW* (10/11/16 2:19 AM) Phosphorus [2.5-4.5 mg/dL] 2.1 mg/dL (10/11/16 2:19 AM) 2.4 mg/dL (10/10/16 3:51 AM) 1.4 mg/dL *LOW* (10/09/16 1:32 PM) Magnesium Lvl [1.8-2.4 mg/dL] 19 unit/L (10/09/16 5:54 AM) ALT [0-65 unit/L] 12 unit/L (10/09/16 5:54 AM) AST [0-37 unit/L] 60 unit/L (10/09/16 5:54 AM) Alk Phos [39-136 unit/L] 0.2 mg/dL (10/09/16 5:54 AM) Bili Total [0.2-1.3 mg/dL] 1Result Comment: The eGFR is calculated using the CKD-EPI formula. In most young , healthy individuals the eGFR will be >90 mL/min/1.73m2. The eGFR declines with age. An eGFR of 60-89 may be normal in some populations, particularly the elderly, for whom the CKD-EPI formula has not been extensively validated. Use of the eGFR is not recommended in the following populations: Individuals with unstable creatinine concentrations, including patients and those with serious co-morbid conditions. Patients with extremes in muscle mass or diet. The data above are obtained from the National Kidney Disease Education Program ( NKDEP) which additionally recommends that when the eGFR is used in patients with extremes of body mass index for purposes of drug dosing, the eGFR should be multiplied by the estimated BMI. 2Result Comment: The eGFR is calculated using the CKD-EPI formula. In most young , healthy individuals the eGFR will be >90 mL/min/1.73m2. The eGFR declines with age. An eGFR of 60-89 may be normal in some populations, particularly the elderly, for whom the CKD-EPI formula has not been extensively validated. Use of the eGFR is not recommended in the following populations: Individuals with unstable creatinine concentrations, including patients and those with serious co-morbid conditions. Patients with extremes in muscle mass or diet. The data above are obtained from the National Kidney Disease Education Program ( NKDEP) which additionally recommends that when the eGFR is used in patients with extremes of body mass index for purposes of drug dosing, the eGFR should be multiplied by the estimated BMI. 3Result Comment: The eGFR is calculated using the CKD-EPI formula. In most young , healthy individuals the eGFR will be >90 mL/min/1.73m2. The eGFR declines with age. An eGFR of 60-89 may be normal in some populations, particularly the elderly, for whom the CKD-EPI formula has not been extensively validated. Use of the eGFR is not recommended in the following populations: Individuals with unstable creatinine concentrations, including patients and those with serious co-morbid conditions. Patients with extremes in muscle mass or diet. The data above are obtained from the National Kidney Disease Education Program ( NKDEP) which additionally recommends that when the eGFR is used in patients with extremes of body mass index for purposes of drug dosing, the eGFR should be multiplied by the estimated BMI. CARDIAC ENZYMES 1 2 3 Most recent to oldest [Reference Range]: 190 pg/mL *HI* (10/10/16 3:51 AM) BNP [<=100 pg/mL] URINE AND STOOL 1 2 3 Most recent to oldest [Reference Range]: Clear (10/11/16 10:35 AM) UA Turbidity [Clear] Light Yellow *NA* (10/11/16 10:35 AM) UA Color [Yellow] 6.0 (10/11/16 10:35 AM) UA pH [5.0-8.0] 1.005 (10/11/16 10:35 AM) UA Spec Grav [<=1.030] 200 mg/dL *ABN* (10/11/16 10:35 AM) UA Glucose [Negative mg/dL] Negative (10/11/16 10:35 AM) UA Blood [Negative] Negative mg/dL *NA* (10/11/16 10:35 AM) UA Ketones [Negative mg/dL] 10 mg/dL *ABN* (10/11/16 10:35 AM) UA Protein [Negative mg/dL] <=1.0 mg/dL *NA* (10/11/16 10:35 AM) UA Urobilinogen [0.1-1.0 mg/dL] Negative *NA* (10/11/16 10:35 AM) UA Bili [Negative] Negative (10/11/16 10:35 AM) UA Leuk Est [Negative] Negative (10/11/16 10:35 AM) UA Nitrite [Negative] 1 /HPF (10/11/16 10:35 AM) UA WBC [0-5 /HPF] RARE *NA* (10/11/16 10:35 AM) UA Sq Epi Few /LPF *NA* (10/11/16 10:35 AM) UA Mucus [None Seen /LPF] Performed *NA* (10/11/16 10:35 AM) Micro? HEMATOLOGY 1 2 3 Most recent to oldest [Reference Range]: 13.3 K/CMM *HI* (10/11/16 2:19 AM) 11.7 K/CMM *HI* (10/10/16 3:51 AM) 12.1 K/CMM *HI* (10/09/16 1:32 PM) WBC [3.7-10.4 K/CMM] 4.43 M/CMM *LOW* (10/11/16 2:19 AM) 4.31 M/CMM *LOW* (10/10/16 3:51 AM) 4.17 M/CMM *LOW* (10/09/16 1:32 PM) RBC [4.70-6.10 M/CMM] 11.0 g/dL *LOW* (10/11/16 2:19 AM) 10.8 g/dL *LOW* (10/10/16 3:51 AM) 10.5 g/dL *LOW* (10/09/16 1:32 PM) Hgb [14.0-18.0 g/dL] 34.0 % *LOW* (10/11/16 2:19 AM) 33.5 % *LOW* (10/10/16 3:51 AM) 32.3 % *LOW* (10/09/16 1:32 PM) Hct [42.0-54.0 %] 76.7 fL *LOW* (10/11/16 2:19 AM) 77.6 fL *LOW* (10/10/16 3:51 AM) 77.5 fL *LOW* (10/09/16 1:32 PM) MCV [80.0-94.0 fL] 24.9 pg *LOW* (10/11/16 2:19 AM) 25.2 pg *LOW* (10/10/16 3:51 AM) 25.1 pg *LOW* (10/09/16 1:32 PM) MCH [27.0-31.0 pg] 32.5 g/dL (10/11/16 2:19 AM) 32.4 g/dL (10/10/16 3:51 AM) 32.4 g/dL (10/09/16 1:32 PM) MCHC [32.0-36.0 g/dL] 17.4 % *HI* (10/11/16 2:19 AM) 16.9 % *HI* (10/10/16 3:51 AM) 17.0 % *HI* (10/09/16 1:32 PM) RDW [11.5-14.5 %] 185 K/CMM (10/11/16 2:19 AM) 191 K/CMM (10/10/16 3:51 AM) 178 K/CMM (10/09/16 1:32 PM) Platelet [133-450 K/CMM] 10.0 fL (10/11/16 2:19 AM) 10.1 fL (10/10/16 3:51 AM) 10.7 fL *HI* (10/09/16 1:32 PM) MPV [7.4-10.4 fL] 75.8 % *HI* (10/11/16 2:19 AM) 78.6 % *HI* (10/10/16 3:51 AM) 83.0 % *HI* (10/09/16 1:32 PM) Segs [45.0-75.0 %] 0.0 % (10/09/16 1:32 PM) Bands [0.0-11.0 %] 12.0 % *LOW* (10/11/16 2:19 AM) 10.2 % *LOW* (10/10/16 3:51 AM) 9.0 % *LOW* (10/09/16 1:32 PM) Lymphocytes [20.0-40.0 %] 0.0 % (10/09/16 1:32 PM) Atypical Lymphs [<=0.0 %] 10.3 % (10/11/16 2:19 AM) 9.4 % (10/10/16 3:51 AM) 3.0 % (10/09/16 1:32 PM) Monocytes [2.0-12.0 %] 1.5 % (10/11/16 2:19 AM) 1.4 % (10/10/16 3:51 AM) 5.0 % *HI* (10/09/16 1:32 PM) Eosinophils [0.0-4.0 %] 0.4 % (10/11/16 2:19 AM) 0.4 % (10/10/16 3:51 AM) 1.1 % *HI* (10/09/16 5:54 AM) Basophils [0.0-1.0 %] 10.1 K/CMM *HI* (10/11/16 2:19 AM) 9.2 K/CMM *HI* (10/10/16 3:51 AM) 10.0 K/CMM *HI* (10/09/16 1:32 PM) Segs-Bands # [1.5-8.1 K/CMM] 1.6 K/CMM (10/11/16 2:19 AM) 1.2 K/CMM (10/10/16 3:51 AM) 1.1 K/CMM (10/09/16 1:32 PM) Lymphocytes # [1.0-5.5 K/CMM] 1.4 K/CMM *HI* (10/11/16 2:19 AM) 1.1 K/CMM *HI* (10/10/16 3:51 AM) 0.4 K/CMM (10/09/16 1:32 PM) Monocytes # [0.0-0.8 K/CMM] 0.2 K/CMM (10/11/16 2:19 AM) 0.2 K/CMM (10/10/16 3:51 AM) 0.6 K/CMM *HI* (10/09/16 1:32 PM) Eosinophils # [0.0-0.5 K/CMM] 0.1 K/CMM (10/11/16 2:19 AM) 0.1 K/CMM (10/09/16 5:54 AM) Basophils # [0.0-0.2 K/CMM] 1+ *ABN* (10/11/16 2:19 AM) 1+ *ABN* (10/10/16 3:51 AM) 1+ *ABN* (10/09/16 1:32 PM) Microcyte [None Seen] Normal (10/09/16 1:32 PM) Plt Morph 14.3 seconds (10/10/16 3:51 AM) 14.6 seconds (10/09/16 1:32 PM) 13.6 seconds (10/09/16 5:54 AM) PT [12.0-14.7 seconds] 1.09 (10/10/16 3:51 AM) 1.12 (10/09/16 1:32 PM) 1.02 (10/09/16 5:54 AM) INR [0.85-1.17] 31.8 seconds (10/10/16 3:51 AM) 32.4 seconds (10/09/16 1:32 PM) 32.4 seconds (10/09/16 5:54 AM) PTT [22.9-35.8 seconds] Immunizations No data available for this section Procedures No data available for this section Social History Social History Type Response Smoking Status Former smoker; Ready to change: No; Concerns about tobacco use in household: No; Exposure to Tobacco Smoke None; Cigarette Smoking Last 365 Days No; Reg Smoking Cessation Counseling No Assessment and Plan Extracted from: Title: AHF Inpatient Progress Note Author: Hermelindo Melton MD Date: 10/10/16 Impression and Plan 81 y/o man with PMH of severe aortic stenosis, HLD, DM, HTN, JAKOB, asthma, and former 20+ pk year smoking hx who presented to clinic as referral from Dr. Parvez Tovar for evaluation for TAVR. ## Critical s/p TAVR --Successful deployment of Edward johnathon tissue valve on 10/09. Procedure complicated by CHB --TTE today --Continue ASA, plavix - EKG today ## Complete Heart Block --s/p emergent PPM by EP on 10/09 --CXR and device interrogation in AM ## HTN --Continue HCTZ, valsartan - d/c clonidine - Increase amlodipine to 10 mg po daily. ## Asthma / COPD --Continue home montelukast, duonebs ## HLD --Continue simvastatin ## DM2 --Continue home glimepiride, januvia DVT PPx: SCD/TARA Dispo: Monitor in IMU, PT evaluation before discharge Extracted from: Title: Heart Failure Admission H&P Author: Kel Lam DO Date : 10/09/16 * Impression and Plan 81 y/o man with PMH of severe aortic stenosis, HLD, DM, HTN, JAKOB, asthma, and former 20+ pk year smoking hx who presented to clinic as referral from Dr. Parvez Tovar for evaluation for TAVR. ## Critical s/p TAVR --Successful deployment of Edward johnathon tissue valve on 10/09. Procedure complicated by CHB --TTE in AM --Continue ASA, plavix ## Complete Heart Block --s/p emergent PPM by EP on 10/09 --CXR and device interrogation in AM ## HTN --Continue home amlodipine, clonidine, HCTZ, valsartan ## Asthma / COPD --Continue home montelukast, duonebs ## HLD --Continue simvastatin ## DM2 --Continue home glimepiride, januvia DVT PPx: SCD/TARA Dispo: Monitor in IMU I saw and examined the patient on 10/09/[address] Lam. I have reviewed the pertinent clinical, imaging and laboratory findings and agree with the assessment and plan as outlined.
--- OUTSIDE RECORDS SUMMARY | 2018-06-23 04:42 | XMS REPORT | Summary of Care ---
Author Author [facility] Organization [facility] Address Unknown Phone Unavailable Encounter MARCK Kelly(LUZMARIA) [id number] Date(s): 11/09/16 - 11/09/16 [facility] [address], [address] [place], [place] [address] Discharge Disposition: Home or Self Care Attending Physician: Bridget Herzog MD Referring Physician: Bridget Herzog MD Vital Signs Most recent to 1 oldest [Reference Range]: Height 177.8 cm (11/09/16 10:00 AM) Temperature Oral 98.0 DegF [96.4-99.1 DegF] (11/09/16 10:00 AM) Blood Pressure 160/70 mmHg [90-140/60-90 mmHg] *HI* (11/09/16 10:00 AM) Peripheral Pulse 68 bpm Rate [60-100 bpm] (11/09/16 10:00 AM) Weight 118.324 kg (11/09/16 10:00 AM) Body Mass Index 37.43 m2 (11/09/16 10:00 AM) Problem List Condition Effective Dates Status Health Status Informant Acute Resolved laryngopharyngitis(C onfirmed) Aortic Stenosis With Active Doming(Confirmed) Diabetes mellitus Active type II(Confirmed) 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) Hypertension(Confirm Resolved ed) Allergies, Adverse Reactions, Alerts Substance Reaction Severity Status penicillin Active Medications amLODIPine 10 mg oral tablet 10 mg=1 tab, PO, Daily, # 30 tab, 11 Refill(s) Start Date: 11/09/16 Status: Ordered Results No data available for this section [...]
--- OUTSIDE RECORDS SUMMARY | 2018-06-23 04:42 | XMS REPORT | Summary of Care ---
Author Author [facility] [place] Organization [facility] [place] Address Unknown Phone Unavailable Encounter HQ Nathanael_cedrick(FIN) [id number] Date(s): 10/23/16 - 10/23/16 [facility] [place] [address] [place] [phone] Discharge Disposition: Home or Self Care Attending [...]
--- OUTSIDE RECORDS SUMMARY | 2018-06-23 04:42 | XMS REPORT | CCD ---
Author Author [facility] - [facility] [place] Address Unknown Phone Unavailable Care Team Providers Care Claims Service Adjustor Name Role Phone Martin Pace CP Allergies, Adverse Reactions, Alerts Substance Reaction Status penicillin Active
--- OUTSIDE RECORDS SUMMARY | 2018-06-23 04:42 | XMS REPORT | Summary of Care ---
Author Author [facility] Organization [facility] Address Unknown Phone Unavailable Encounter MARCK Kelly(LUZMARIA) [id number] Date(s): 10/19/16 - 10/19/16 [facility] [address], [address] [place] [address]- Discharge Disposition: Home or Self Care Attending Physician: Alexis Ziegler MD Referring Physician: Alexis Ziegler MD Vital Signs Most recent to 1 oldest [Reference Range]: Height 177.8 cm (10/19/16 2:24 PM) Temperature Oral 97.9 DegF [96.4-99.1 DegF] (10/19/16 2:24 PM) Blood Pressure 150/60 mmHg [90-140/60-90 mmHg] *HI* (10/19/16 2:24 PM) Respiratory Rate 24 BRMIN [14-20 BRMIN] *HI* (10/19/16 2:24 PM) Peripheral Pulse 78 bpm Rate [60-100 bpm] (10/19/16 2:24 PM) Weight 121.392 kg (10/19/16 2:24 PM) Body Mass Index 38.4 m2 (10/19/16 2:24 PM) Problem List Condition Effective Dates Status Health Status Informant Acute Resolved laryngopharyngitis(C onfirmed) Aortic Stenosis With Active Doming(Confirmed) Diabetes mellitus Active type II(Confirmed) 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) Hypertension(Confirm Resolved ed) Allergies, Adverse Reactions, Alerts Substance Reaction Severity Status penicillin Active Medications metFORMIN 1000 mg oral tablet, extended release 1,000 mg=1 tab, PO, BID, 0 Refill(s) Start Date: 10/19/16 Status: Ordered Vytorin 10 mg-40 mg oral tablet 1 tab, PO, Daily, 0 Refill(s) Start Date: 10/19/16 Status: Ordered Results No data available for [...]
--- OUTSIDE RECORDS SUMMARY | 2018-06-23 04:42 | XMS REPORT | Summary of Care ---
Author Author [facility] Organization [facility] Address Unknown Phone Unavailable Encounter MARCK Kelly(LUZMARIA) [id number] Date(s): 09/29/16 - 09/29/16 [facility] [address], [address] [place] [address]- Discharge Disposition: Home or Self Care Attending Physician: Bridget Herzog MD Referring Physician: Bridget Herzog MD Vital Signs Most recent to 1 oldest [Reference Range]: Height 177.8 cm (09/29/16 9:42 AM) Temperature Oral 98.0 DegF [96.4-99.1 DegF] (09/29/16 9:42 AM) Respiratory Rate 18 BRMIN [14-20 BRMIN] (09/29/16 9:42 AM) Peripheral Pulse 66 bpm Rate [60-100 bpm] (09/29/16 9:42 AM) Weight 118.835 kg (09/29/16 9:42 AM) Body Mass Index 37.59 m2 (09/29/16 9:42 AM) Problem List No data available for this section Allergies, Adverse Reactions, Alerts Substance Reaction Severity Status penicillin Active Medications amLODIPine 2.5 mg oral tablet 2.5 mg=1 tab, PO, Daily, 0 Refill(s) Start Date: 09/29/16 Status: Ordered Aspirin Enteric Coated 81 mg oral delayed release tablet 81 mg=1 tab, PO, Daily, 0 Refill(s) Start Date: 09/29/16 Status: Ordered cloNIDine 0.2 mg oral tablet 0.2 mg=1 tab, PO, Daily, 0 Refill(s) Start Date: 09/29/16 Status: Ordered furosemide 40 mg oral tablet 40 mg=1 tab, PO, Daily, 0 Refill(s) Start Date: 09/29/16 Status: Ordered glimepiride 4 mg, PO, Daily, 0 Refill(s) Start Date: 09/29/16 Status: Ordered Home Medication Calcium Polycarbophil 625mg daily, Refill(s) 0 Start Date: 09/29/16 Status: Ordered Januvia 100 mg oral tablet 100 mg=1 tab, PO, Daily, 0 Refill(s) Start Date: 09/29/16 Status: Ordered metFORMIN 1000 mg oral tablet 1,000 mg=1 tab, PO, BID, 0 Refill(s) Start Date: 09/29/16 Status: Ordered montelukast 10 mg oral tablet 10 mg=1 tab, PO, Daily, 0 Refill(s) Start Date: 09/29/16 Status: Ordered omeprazole 20 mg oral delayed release capsule 20 mg=1 cap, PO, Daily, 0 Refill(s) Start Date: 09/29/16 Status: Ordered valsartan PO, Valsartan/HCTZ 160/25, 0 Refill(s) Start Date: 09/29/16 Status: Ordered Vytorin 10 mg-40 mg oral tablet 1 tab, PO, Daily, 0 Refill(s) Start Date: 09/29/16 Status: Ordered Results No data available for [...]
--- OUTSIDE RECORDS SUMMARY | 2018-06-23 04:42 | XMS REPORT | Summary of Care ---
Author Author [facility] Organization [facility] Address Unknown Phone Unavailable Encounter MARCK Kelly(LUZMARIA) [id number] Date(s): 09/30/16 - 09/30/16 [facility] [address], [address] [place] [address]- Discharge Disposition: Home or Self Care Attending Physician: Beni Booth MD Referring Physician: Bridget Herzog MD Vital Signs Most recent to 1 oldest [Reference Range]: Height 177.8 cm (09/30/16 8:07 AM) Weight 118.636 kg (09/30/16 8:07 AM) Body Mass Index 37.53 m2 (09/30/16 8:07 AM) Problem List No data available for this section Allergies, Adverse Reactions, Alerts Substance Reaction Severity Status penicillin Active Medications No data available for this section Results CHEM PANEL Most recent to 1 oldest [Reference Range]: eGFR 40 mL/min/1.73m2 1 *NA* (09/30/16 8:38 AM) POC Creatinine 1.6 mg/dL [0.5-1.4 mg/dL] *HI* (09/30/16 8:38 AM) 1Result Comment: The eGFR is calculated using [...] should be multiplied by the estimated BMI. Immunizations No data available for this section [...]
--- OUTSIDE RECORDS SUMMARY | 2018-06-23 04:42 | XMS REPORT | Summary of Care ---
Author Author [facility] Organization [facility] Address Unknown Phone Unavailable Encounter [facility] Encntr_alias(FIN) [id number] Date(s): 11/26/15 - 11/26/15 [facility] [address] [place] [id number] [phone] Discharge Disposition: Home Attending Physician: Rancho Pace MD Vital Signs No data available for this section Problem List No data available for this section Allergies, Adverse Reactions, Alerts Substance Reaction Severity Status penicillin Active Medications No data available for this section Results No data available for this section Immunizations No data available for this section Procedures No data available for this section Social History Social History Type Response Assessment and Plan No data available for this section
--- OUTSIDE RECORDS SUMMARY | 2018-06-23 04:42 | XMS REPORT | Summary of Care ---
Author Author [facility] Organization [facility] Address Unknown Phone Unavailable Encounter HQ [email or web address](FIN) [phone] Date(s): 12/07/17 - 12/07/17 [facility] [address] [place] [phone] [phone] Encounter Diagnosis Unspecified asthma, uncomplicated (Final) - 12/13/17 Dyspnea, unspecified (Final) - Disorders of diaphragm (Final) - Discharge Disposition: Home or Self Care Attending [...] Days No; Reg Smoking Cessation Counseling No entered on: 11/09/16 Assessment and Plan No data available for this section
--- NOTE | 2018-06-24 14:40 | Operative Report ---
DATE OF PROCEDURE: May 17, 2018 INDICATIONS: Coronary artery disease. Abnormal stress test. PROCEDURES PERFORMED: 1. Left heart catheterization, selective coronary angiography. 2. Deployment of right wrist transradial band. COMPLICATIONS: None. RECOMMENDATIONS: Left main percutaneous coronary intervention (high risk). Access obtained in the right radial artery. A 5-Urdu sheath was placed. Diagnostic coronary angiogram revealed 80% ostial left main, left anterior descending, circumflex, right coronary artery disease. Right coronary artery vessels had mild disease of less than 20% stenosis. Guidant sheath removed. TR band applied. Patient discharged home same day. Job#: [id number]
--- NOTE | 2018-06-28 10:16 | Operative Report ---
DATE OF PROCEDURE: May 17, 2018 INDICATIONS: Coronary artery disease. Abnormal stress test. PROCEDURES PERFORMED: 1. Left heart catheterization, selective coronary angiography. 2. Deployment of right wrist transradial band. COMPLICATIONS: None. RECOMMENDATIONS: Anemia workup followed by left main percutaneous coronary intervention (high risk). Access was obtained in the right radial artery. A 6-Pashto sheath was placed. A coronary angiography demonstrated 80% stenosis of the ostial left main. Left anterior descending, circumflex, right coronary artery had mild disease of less than 20% luminal stenosis. No complications were encountered. Right wrist TR band applied. Patient discharged home same day. Job#: [id number] EV
== END | disposition home or self-care (01) ==
LOC: CATH LAB 11:10
PROVIDERS: ATTEND Internal Medicine Interventional Cardiology
DX: I25.10 Atherosclerotic heart disease of native coronary artery without angina pectoris (principal); R94.39 Abnormal result of other cardiovascular function study; I10 Essential (primary) hypertension; J45.909 Unspecified asthma, uncomplicated; E78.00 Pure hypercholesterolemia, unspecified; I25.2 Old myocardial infarction; E11.9 Type 2 diabetes mellitus without complications; Z01.812 Encounter for preprocedural laboratory examination; Z79.84 Long term (current) use of oral hypoglycemic drugs; Z79.02 Long term (current) use of antithrombotics/antiplatelets; Z79.82 Long term (current) use of aspirin; Z68.37 Body mass index [BMI] 37.0-37.9, adult; Z95.2 Presence of prosthetic heart valve; Z86.2 Personal history of diseases of the blood and blood-forming organs and certain disorders involving the immune mechanism
CPT/HCPCS: 36415; 80053; 80061; 85025; 85610; 93454; C1887; J1644; J2001; J2250; J7030; Q9967 ×2

== ENCOUNTER → 2018-05-27 | Day surgery (SDC) | payer MEDICARE, BC ==
[2018-05-26 12:21] LABS: BASOPHILS % 0.4 % (0.0-1.0); EOSINOPHILS # (AUTO) 0.6 (0.0-0.4); EOSINOPHILS % 6.1 % (0.0-6.0); HEMATOCRIT 30.6 % (38.2-49.6); HEMOGLOBIN 9.4 g/dL (14.0-18.0); LYMPHOCYTES # (AUTO) 1.7 (1.0-3.2); LYMPHOCYTES % 18.2 % (18.0-39.1); MEAN CORPUSCULAR HEMOGLOBIN 23.9 pg (28-32); MEAN CORPUSCULAR HGB CONC 30.7 g/dL (31-35); MEAN CORPUSCULAR VOLUME 77.7 fL (81-99); MONOCYTES # (AUTO) 0.7 (0.2-0.8); MONOCYTES % 8.1 % (4.4-11.3); NEUTROPHILS # (AUTO) 6.1 (2.1-6.9); NEUTROPHILS % 66.3 % (38.7-80.0); PLATELET COUNT 193 x10e3/uL (140-360); RED BLOOD COUNT 3.94 x10e6/uL (4.3-5.7); RED CELL DISTRIBUTION WIDTH 17.2 % (11.7-14.4)
[~2018-05-27] MED LIST changes: -FENTANYL CITRATE/PF 100MCG/2 ML INJ ONE; -HEPARIN SOD (PORCINE) 1000 UNIT/ML 30ML ONE; -HEPARIN SOD/SOD CHLORIDE 2,000 ML ONE; +INSULIN REGULAR, HUMAN 100 UNIT/1 ML 3ML VIAL ONE; -IOPAMIDOL 300MG/ML 100 ML INFUS..BTL IV ONE; -IOPAMIDOL 370 MG/ML 200 ML INFUS..BTL INJ ONE; -LIDOCAINE HCL 2% LOCAL 20 ML VIAL ONE; +LIDOCAINE HCL 2% LOCAL INJ 5 ML SDV VIAL INJ ONE; -NITROGLYCERIN 400 MCG/SPRAY 4.9 GM BTL ONE; -NITROGLYCERIN/D5W 200 MCG/ML 250 ML ONE; -PRASUGREL 10 MG TAB ONE; +PROPOFOL IV EMULSION 10 MG/ML 50 ML VIAL ONE; -SODIUM CHLORIDE 0.9% 1000ML 1,000 ML ONE; -VERAPAMIL HCL 2.5 MG/ML 2 ML VIAL ONE
[2018-05-27 12:53] VITALS: BP 107/60
--- NOTE | 2018-05-27 13:42 | Operative Report ---
DATE OF PROCEDURE: May 27, 2018 REFERRING PHYSICIAN: Dr. Kaden Peralta and Dr. Parvez Tovar. PROCEDURE PERFORMED: Colonoscopy and polypectomy. INDICATIONS FOR COLONOSCOPY: Anemia. MEDICATION: Patient was done under MAC. Please see anesthesiologist's note. PROCEDURE: With the patient in left lateral decubitus position, flexible fiberoptic Olympus colonoscope was inserted into the rectum with ease and advanced all the way to the cecum. Mucosa overlying the cecum and ascending colon appeared to be within normal limits. A prep overall was suboptimal, but visualization was fair. An approximately 2.2 sessile polypoid lesion was noted in the hepatic flexure and it was wedge biopsied per snare electrocautery and sent for frozen and permanent section. The transverse grossly appeared to be within normal limits. Diverticular disease was noted to involve the descending and the sigmoid colon. One polyp was snared from the descending colon. The rectum grossly appeared to be within normal limits. The scope was then retroflexed into the distal rectum and small internal hemorrhoids were noted and none of which was actively bleeding. The scope was then straightened out and was subsequently withdrawn. Patient tolerated the procedure well. IMPRESSION 1. Approximately 2.2 cm sessile polypoid lesion hepatic flexure, wedge biopsied for frozen and permanent sections. 2. Diverticulosis. 3. Descending colon polyp, snared. 4. Internal hemorrhoids, none actively bleeding. PLAN 1. Follow up histology. 2. Patient will need a CT scan of the abdomen. 3. General Surgical opinion. Job#: [id number] RICARDO cc:DR. KADEN VELA
== END | disposition home or self-care (01) ==
LOC: OR 09:50
PROVIDERS: ATTEND Internal Medicine Gastroenterology
DX: D64.9 Anemia, unspecified (principal); D12.3 Benign neoplasm of transverse colon; D36.10 Benign neoplasm of peripheral nerves and autonomic nervous system, unspecified; K59.00 Constipation, unspecified; K57.30 Diverticulosis of large intestine without perforation or abscess without bleeding; K64.8 Other hemorrhoids; J45.909 Unspecified asthma, uncomplicated; G47.33 Obstructive sleep apnea (adult) (pediatric); I25.10 Atherosclerotic heart disease of native coronary artery without angina pectoris; I25.2 Old myocardial infarction; I48.91 Unspecified atrial fibrillation; E66.01 Morbid (severe) obesity due to excess calories; E78.00 Pure hypercholesterolemia, unspecified; E11.22 Type 2 diabetes mellitus with diabetic chronic kidney disease; I13.0 Hypertensive heart and chronic kidney disease with heart failure and stage 1 through stage 4 chronic kidney disease, or unspecified chronic kidney disease; N18.9 Chronic kidney disease, unspecified; Z88.0 Allergy status to penicillin; Z01.810 Encounter for preprocedural cardiovascular examination; Z01.812 Encounter for preprocedural laboratory examination; Z79.82 Long term (current) use of aspirin; Z79.02 Long term (current) use of antithrombotics/antiplatelets; Z79.84 Long term (current) use of oral hypoglycemic drugs; Z68.37 Body mass index [BMI] 37.0-37.9, adult; Z87.891 Personal history of nicotine dependence; Z95.0 Presence of cardiac pacemaker
CPT/HCPCS: 36415 ×2; 45385; 82948; 84152; 85025; 88305; 88331; 93005; J2001; J2250; 45381

== ENCOUNTER 2018-07-07 07:42 | Inpatient (IN) | payer MEDICARE, BC ==
[2018-07-01 13:30] LABS: BASOPHILS # (AUTO) 0.1 (0.0-0.1); BASOPHILS % 0.6 % (0.0-1.0); EOSINOPHILS # (AUTO) 0.3 (0.0-0.4); EOSINOPHILS % 2.1 % (0.0-6.0); HEMATOCRIT 29.1 % (38.2-49.6); HEMOGLOBIN 9.1 g/dL (14.0-18.0); LYMPHOCYTES # (AUTO) 1.3 (1.0-3.2); LYMPHOCYTES % 9.6 % (18.0-39.1); MEAN CORPUSCULAR HEMOGLOBIN 23.8 pg (28-32); MEAN CORPUSCULAR HGB CONC 31.3 g/dL (31-35); MONOCYTES # (AUTO) 0.8 (0.2-0.8); MONOCYTES % 5.5 % (4.4-11.3); NEUTROPHILS # (AUTO) 11.1 (2.1-6.9); NEUTROPHILS % 79.2 % (38.7-80.0); PLATELET COUNT 239 x10e3/uL (140-360); RED BLOOD COUNT 3.83 x10e6/uL (4.3-5.7); RED CELL DISTRIBUTION WIDTH 16.7 % (11.7-14.4)
[2018-07-01 14:05] LABS: ANION GAP 19.6 mmol/L (8-16); CALCIUM 8.7 mg/dL (8.4-10.2); CREATININE, SERUM 1.91 mg/dL (0.72-1.25); POTASSIUM 4.6 mmol/L (3.5-5.1)
--- NOTE | 2018-07-01 14:23 | Diagnostic Imaging Report ---
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 LUNGS: Lungs are well inflated. Pleural-based linear scarring in the right upper lobe. Bandlike opacity in the right lower lobe with associated volume loss worse since prior CT. Minimal atelectasis in the left lower lobe. PLEURA: No pleural effusion or pneumothorax. HEART AND MEDIASTINUM: The cardiomediastinal silhouette is unremarkable. 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 Moderate calcifications of the aortic arch. BONES AND SOFT TISSUES: No acute osseous lesion. Soft tissues are unremarkable. UPPER ABDOMEN: No free air under the diaphragm. IMPRESSION: Worsening bandlike opacity at the right lower lobe associated with volume loss may reflect worsening partial collapse of the right lower lobe versus superimposed pneumonia in the proper clinical setting. Recommend follow-up. Signed by: Dr. Cece Pink M.D. on 07/01/2018 2:19 PM
[~2018-07-07] VITALS: Ht 177.8 cm; Wt 115.9 kg
[~2018-07-07 07:42] MED LIST changes: -INSULIN REGULAR, HUMAN 100 UNIT/1 ML 3ML VIAL ONE; -LIDOCAINE HCL 2% LOCAL INJ 5 ML SDV VIAL INJ ONE; -MIDAZOLAM HCL 2 MG/2 ML VIAL ONE; -PROPOFOL IV EMULSION 10 MG/ML 50 ML VIAL ONE
--- OUTSIDE RECORDS SUMMARY | 2018-07-07 07:45 | XMS REPORT | Continuity of Care Document ---
Author Author [facility] Interface Address Unknown Phone Unavailable Problems Problem Status Onset Date Classification Date Reported Comments Source Unspecified asthma, uncomplicated 12/14/2017 03/15/2018 CICI Acosta J98.9 - "RESPIRATORY DISORDER, UNSPECIF" Active 10/23/2016 [facility] HOSPITAL FOLLOW UP Active 10/13/2016 [facility] TAVR 30 DAY FOLLOW UP Active 10/13/2016 [facility] TAVR 30 DAY FOLLOW UP Active 10/13/2016 [facility] HOSPITAL FOLLOW UP Active 10/13/2016 [facility] PRE ADMIT/*GEN ANESTHESIA*/TAVR CASE/*TT Active 10/08/2016 [facility] AORTIC STENOSIS Active 10/08/2016 [facility] AORTIC STENOSIS Active 10/08/2016 [facility] AORTIC STENOSIS/ DYSPEA /CARDIAC MURMUR Active 09/29/2016 [facility] TAVR Active 08/31/2016 [facility] J44.9 - CHRONIC OBSTRUCTIVE PULMONARY Active 11/26/2015 CICI Acosta 786.05 - SHORTNESS OF BR Active 08/08/2012 [facility]IC[facility] Acosta Acute laryngopharyngitis Resolved Problem [facility]en[facility] With Doming [facility] Problem [facility] Diabetes mellitus type II Active Problem [facility]/15[facility] (<span [id number]</span>) Active Problem 03/15/2018 [facility] Hypertension Res[facility] Problem [facility]15[facility] Dyspnea, unspecified 03/15/2018 CIC[facility] Acosta Disorders of diaphragm 03/15/2018 [facility] Garciaa [facility] W/ Active [facility] NONRHEUMATIC AORTIC (VALVE) STENOSIS Active [facility] DYSPNEA, UNSPECIFIED Active [facility] 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 [facility] Medications Medication Details Route Status Patient Instructions Ordering Provider Order Date Source amLODIPine 10 mg oral tablet 10 mg=1 tab, PO, Daily, # 30 tab, 11 Refill(s) Active 11/09/2016 [facility] 24 HR Metformin hydrochloride 1000 MG Extended Release Tablet 1,000 mg=1 tab, PO, BID, 0 Refill(s) Active 10/19/2016 [facility] ezetimibe 10 MG / Simvastatin 40 MG Oral Tablet [Vytorin 1040] 1 tab, PO, Daily, 0 Refill(s) Active 10/19/2016 [facility] metoprolol tartrate 12.5 mg, 1 tab, Route: PO, Drug form: TAB, BID, Dosing Weight 121.818, kg, Start date: 10/11/16 17:00:00 [employer] OFF, Duration: 30 day, Stop date: 11/10/16 9:00:00 CSTNotes: (Same as: Lopressor) 12.5mg=1/4 X 50 mg tab. Inactive 10/11/2016 [facility] metoprolol tartrate 25 mg oral tablet 12.5 mg=0.5 tab, PO, BID, # 15 tab, 1 Refill(s) Active 10/11/2016 [facility] pantoprazole 40 mg oral enteric coated tablet 40 mg=1 tab, PO, Daily, # 30 tab, 0 Refill(s) Active 10/11/2016 [facility] Furosemide 40 MG Oral Tablet 40 mg=1 tab, PO, BID, # 60 tab, 3 Refill(s) Active 10/11/2016 [facility] clopidogrel 75 mg oral tablet 75 mg=1 tab, PO, Daily, # 90 tab, 0 Refill(s) Active 10/11/2016 [facility] ezetimibe 10 mg oral tablet 10 mg=1 tab, PO, Daily, 0 Refill(s) Active 10/11/2016 [facility] Hydrochlorothiazide 25 MG Oral Tablet 25 mg=1 tab, PO, Daily, # 30 tab, 1 Refill(s) Active 10/11/2016 [facility] simvastatin 40 mg oral tablet 40 mg=1 tab, PO, Bedtime, # 30 tab, 0 Refill(s) Active 10/11/2016 [facility] valsartan 80 mg oral tablet 160 mg=2 tab, PO, Daily, # 30 tab, 0 Refill(s) Active 10/11/2016 [facility] tolterodine 2 mg oral tablet 4 mg=2 tab, PO, Daily, # 30 tab, 0 Refill(s) Active 10/11/2016 [facility] amLODIPine 5 mg oral tablet 5 mg=1 tab, PO, Daily, # 30 tab, 3 Refill(s) Active 10/11/2016 [facility] Hydralazine 10 mg, 0.5 mL, Route: IV, Drug form: INJ, Q4H, Dosing Weight 121.818, kg, PRN Elevated BP, Start date: 10/11/16 2:32:00 [employer] C[employer] OFF, Duration: 30 day, Stop date: 11/10/16 2:31:00 CSTNotes: (Same as: Apresoline) Push over 5 minutes Inactive 10/11/2016 [facility] Hydralazine 10 mg, 0.5 mL, Route: IVP, Drug form: INJ, Q6H, Dosing Weight 121.818, kg, PRN Other -See Comment, for SBP > 160, Start date: 10/10/16 23:57:00 [employer] OFF, Duration: 30 day, Stop date: 11/09/16 23:56:00 [employer] Notes: (Same as: Apresoline) Push over 5 minutes No Longer Active 10/11/2016 [facility] Insulin, Aspart, Human 1 unit, 0.01 mL, Route: SUB-Q, Drug form: SOLN, Bedtime, Dosing Weight 121.818, kg, PRN Blood Glucose Results, Start date: 10/10/16 21:46:00 [employer] C[employer] OFF, Duration: 30 day, Stop date: 11/09/16 21:45:00 CSTNotes: Roll in palms of hands gently; Do not shake vigorously. (Same as: NovoLOG) "single patient use only" WASTE: F/P - Black; E - Municipal Trash Bin Stable for 28 days at room temperature. Expires in days from Date No Longer Active 10/11/2016 [facility] Dextrose 50% Syringe 12.5 gm, 25 mL, Route: IVP, Drug Form: INJ, Dosing Weight 121.818, kg, PRN, PRN Blood Glucose Results, Start date: 10/10/16 21:46:00 W[employer] CUTTER OFF, Duration: 30 day, Stop date: 11/09/16 21:45:00 [employer] C[employer] OFF No Longer Active 10/11/2016 [facility] Glucagon 1 mg, Route: IM, Drug form: PDR/INJ, PRN, Dosing Weight 121.818, kg, PRN Blood Glucose Results, Start date: 10/10/16 21:46:00 W[employer]ASS CUTTER OFF, Duration: 30 day, Stop date: 11/09/16 21:45:00 [employer] OFF No Longer Active 10/11/2016 [facility] Singulair 10 mg, 1 tab, Route: PO, Drug form: TAB, Bedtime, Dosing Weight 121.818, kg, Start date: 10/10/16 21:00:00 [employer] CUT[employer] OFF, Duration: 30 day, Stop date: 11/08/16 21:00:00 CSTNotes: (Same as:Singulair) No Longer Active 10/11/2016 [facility] Tylenol 650 mg, 2 tab, Route: PO, Drug form: TAB, Q6H, Dosing Weight 121.818, kg, PRN Pain 1-3/Temp > 100.4 F, Start date: 10/10/16 16:55:00 [employer] C[employer] OFF, Duration: 30 day, Stop date: 11/09/16 16:54:00 CSTNotes: Do not exceed 4 gm/day. (Same as: Tylenol) No Longer Active 10/10/2016 [facility] Insulin, Aspart, Human 2 unit, 0.02 mL, Route: SUB-Q, Drug form: SOLN, TID-Before Meals, Dosing Weight 121.818, kg, PRN Blood Glucose Results, Start date: 10/10/16 11:45:00 W[employer] CUTTER OFF, Duration: 30 day, Stop date: 11/09/16 11:44:00 CSTNotes: Roll in palms of hands gently; Do not shake vigorously. (Same as: NovoLOG) "single patient use only" WASTE: F/P - Black; E - Municipal Trash Bin Stable for 28 days at room temperature. Expires in days from Date No Longer Active 10/10/2016 [facility] Dextrose 50% Syringe 25 mL, Route: IVP, Dosing Weight 121.818, kg, PRN, PRN Blood Glucose Results, Start date: 10/10/16 11:45:00 W[employer] CUTTER OFF, Duration: 30 day, Stop date: 11/09/16 11:44:00 W[employer] C[employer]TER OFF Inactive 10/10/2016 [facility] Glucagon 1 mg, Route: IM, PRN, Dosing Weight 121.818, kg, PRN Blood Glucose Results, Start date: 10/10/16 11:45:00 W[employer]OW GL[employer] CUTTER OFF, Duration: 30 day, Stop date: 11/09/16 11:44:00 W[employer] CUTTER OFF Inactive 10/10/2016 [facility] Insulin, Aspart, Human 6 unit, 0.06 mL, Route: SUB-Q, Drug form: SOLN, TID-Before Meals, Dosing Weight 121.818, kg, PRN Blood Glucose Results, Start date: 10/10/16 11:21:00 W[employer] CUTTER OFF, Duration: 30 day, Stop date: 11/09/16 11:20:00 CSTNotes: Roll in palms of hands gently; Do not shake vigorously. (Same as: NovoLOG) "single patient use only" WASTE: F/P - Black; E - Municipal Trash Bin Stable for 28 days at room temperature. Expires in days from Date Inactive 10/10/2016 [facility] Dextrose 50% Syringe 12.5 gm, 25 mL, Route: IVP, Drug Form: INJ, Dosing Weight 121.818, kg, PRN, PRN Blood Glucose Results, Start date: 10/10/16 11:21:00 W[employer] CUTTER OFF, Duration: 30 day, Stop date: 11/09/16 11:20:00 W[employer] CUTTER OFF No Longer Active 10/10/2016 [facility] Glucagon 1 mg, Route: IM, Drug form: PDR/INJ, PRN, Dosing Weight 121.818, kg, PRN Blood Glucose Results, Start date: 10/10/16 11:21:00 W[employer]OW [employer] CUTTER OFF, Duration: 30 day, Stop date: 11/09/16 11:20:00 [employer] OFF No Longer Active 10/10/2016 [facility] Amlodipine 5 mg, 1 tab, Route: PO, Drug form: TAB, Daily, Dosing Weight 121.818, kg, Start date: 10/10/16 9:00:00 [employer] OFF, Duration: 30 day, Stop date: 11/08/16 9:00:00 CSTNotes: (Same as: Norvasc) No Longer Active 10/10/2016 [facility] Diovan 160 mg, 2 tab, Route: PO, Drug form: TAB, Daily, Start date: 10/10/16 9:00:00 [employer] C[employer] OFF, Duration: 30 day, Stop date: 11/08/16 9:00:00 CSTNotes: Same as Diovan No Longer Active 10/10/2016 [facility] clopidogrel 75 mg, 1 tab, Route: PO, Drug form: TAB, Daily, Dosing Weight 121.818, kg, Start date: 10/10/16 9:00:00 W[employer] CUTTER OFF, Duration: 30 day, Stop date: 11/08/16 9:00:00 CSTNotes: (Same As: Plavix) No Longer Active 10/10/2016 [facility] aspirin 81 mg tablet, enteric coated 81 mg, 1 tab, Route: PO, Drug form: ECTAB, Daily, Dosing Weight 121.818, kg, Start date: 10/10/16 9:00:00 [employer] C[employer] OFF, Duration: 30 day, Stop date: 11/08/16 9:00:00 CSTNotes: Do not crush or chew. (Same As: Ecotrin) No Longer Active 10/10/2016 [facility] hydrochlorothiazide 25 mg oral tablet 25 mg, 1 tab, Route: PO, Drug form: TAB, Daily, Start date: 10/10/16 9:00:00 W[employer] CUTTER OFF, Duration: 30 day, Stop date: 11/08/16 9:00:00 CSTNotes: (Same as: Hydrodiuril) With food. No Longer Active 10/10/2016 [facility] VESICARE 5 mg, Route: PO, Drug form: TAB, Daily, Dosing Weight 121.818, kg, Start date: 10/10/16 9:00:00 W[employer] CUTTER OFF, Duration: 30 day, Stop date: 11/08/16 9:00:00 W[employer] C[employer]TER OFF No Longer Active 10/10/2016 [facility] Januvia 100 mg, 2 tab, Route: PO, Drug form: TAB, Daily, Dosing Weight 121.818, kg, Start date: 10/10/16 9:00:00 [employer] C[employer] OFF, Duration: 30 day, Stop date: 11/08/16 9:00:00 CSTNotes: Same as Januvia Non-Formulary Item No Longer Active 10/10/2016 [facility] Omeprazole 20 mg, Route: PO, Drug form: DRC, Daily, Dosing Weight 121.818, kg, Start date: 10/10/16 9:00:00 [employer] CUTTER OFF, Duration: 30 day, Stop date: 11/08/16 9:00:00 [employer] OFF No Longer Active 10/10/2016 [facility] montelukast 10 mg, 1 tab, Route: PO, Drug form: TAB, Daily, Dosing Weight 121.818, kg, Start date: 10/10/16 9:00:00 W[employer] CUTTER OFF, Duration: 30 day, Stop date: 11/08/16 9:00:00 CSTNotes: (Same as:Singulair) Inactive 10/10/2016 [facility] Hydrochlorothiazide 25 MG / valsartan 160 MG Oral Tablet 1 tab, Route: PO, Drug Form: TAB, Dosing Weight 121.818, kg, Daily, Start date: 10/10/16 9:00:00 W[employer] CUTTER OFF, Duration: 30 day, Stop date: 11/08/16 9:00:00 [employer] OFF No Longer Active 10/10/2016 [facility] glimepiride 4 mg, 2 tab, Route: PO, Drug form: TAB, Daily, Dosing Weight 121.818, kg, Start date: 10/10/16 9:00:00 [employer] C[employer] OFF, Duration: 30 day, Stop date: 11/08/16 9:00:00 CSTNotes: (Same as: Amaryl) No Longer Active 10/10/2016 [facility] Protonix 40 mg, 1 tab, Route: PO, Drug form: ECTAB, Daily, Start date: 10/10/16 9:00:00 [employer] OFF, Duration: 30 day, Stop date: 11/08/16 9:00:00 CSTNotes: Tablet should not be chewed or crushed. (Same as: Protonix) No Longer Active 10/10/2016 [facility] ezetimibe 10 MG / Simvastatin 40 MG Oral Tablet 1 tab, Route: PO, Drug Form: TAB, Dosing Weight 121.818, kg, Daily, Start date: 10/10/16 9:00:00 W[employer] CUTTER OFF, Duration: 30 day, Stop date: 11/08/16 9:00:00 [employer] OFF No Longer Active 10/10/2016 [facility] Detrol LA 4 mg, 2 tab, Route: PO, Drug form: TAB, Daily, Start date: 10/10/16 9:00:00 [employer] OFF, Stop date: 11/08/16 9:00:00 CSTNotes: (Same As: Detrol) No Longer Active 10/10/2016 [facility] Clonidine Hydrochloride 0.2 MG Oral Tablet 0.2 mg, 2 tab, Route: PO, Drug form: TAB, Daily, Dosing Weight 121.818, kg, Start date: 10/10/16 9:00:00 [employer] C[employer] OFF, Duration: 30 day, Stop date: 11/08/16 9:00:00 CSTNotes: (Same As: Catapres) Inactive 10/10/2016 [facility] Zetia 10 mg, 1 tab, Route: PO, Drug form: TAB, Daily, Start date: 10/10/16 9:00:00 [employer] C[employer] OFF, Duration: 30 day, Stop date: 11/08/16 9:00:00 CSTNotes: (Same as: Zetia) No Longer Active 10/10/2016 [facility] Zocor 40 mg, 1 tab, Route: PO, Drug form: TAB, Bedtime, Start date: 10/09/16 21:00:00 W[employer] CUTTER OFF, Duration: 30 day, Stop date: 11/07/16 21:00:00 CSTNotes: (Same as: Zocor) No Longer Active 10/10/2016 [facility] Furosemide 40 MG Oral Tablet 40 mg, 1 tab, Route: PO, Drug form: TAB, BID, Dosing Weight 121.818, kg, Start date: 10/09/16 17:00:00 W[employer] CUT[employer] OFF, Duration: 30 day, Stop date: 11/08/16 9:00:00 CSTNotes: (Same as: Lasix) May cause GI upset. Give with food or milk. No Longer Active 10/09/2016 [facility] potassium chloride 10 mEq, 50 mL, Route: IVPB, Drug form: INJ, PRN, Dosing Weight 121.818, kg, PRN Abnormal Lab Result, For NON-ICU Patients Only, Start date: 10/09/16 14:52:00 [employer] C[employer] OFF, Duration: 30 day, Stop date: 11/08/16 14:51:00 CSTNotes: (Same as: KCL) Infuse over 2 hours. No Longer Active 10/09/2016 [facility] Calcium Gluconate 3 gm, 30 mL, Route: IVPB, PRN, Dosing Weight 121.818, kg, PRN Abnormal Lab Result, For NON-ICU Patients Only., Start date: 10/09/16 14:52:00 [employer] CUT[employer] OFF, Duration: 30 day, Stop date: 11/08/16 14:51:00 CSTNotes: WASTE: F/P - Sink; E - Municipal Trash Bin No Longer Active 10/09/2016 [facility] Magnesium Oxide 800 mg, 2 tab, Route: PO, Drug form: TAB, PRN, Dosing Weight 121.818, kg, PRN Abnormal Lab Result, For NON-ICU Patients Only., Start date: 10/09/16 14:52:00 [employer] OFF, Duration: 30 day, Stop date: 11/08/16 14:51:00 CSTNotes: (Same as: Mag-Ox 400) Magnesium oxide [id number] elemental magnesium Dose=____mg magnesium oxide (___mg elemental magnesium) No Longer Active 10/09/2016 [facility] Magnesium Sulfate 2 gm, 50 mL, Route: IVPB, Drug form: INJ, PRN, Dosing Weight 121.818, kg, PRN Abnormal Lab Result, For NON-ICU Patients Only., Start date: 10/09/16 14:52:00 W[employer] CUTTER OFF, Duration: 30 day, Stop date: 11/08/16 14:51:00 CSTNotes: WASTE: F/P - Sink; E - Municipal Trash Bin No Longer Active 10/09/2016 [facility] sodium phosphate + sodium chloride 0.9% INJ 250 mL 30 mmol, 10 mL, Route: IVPB, PRN, Dosing Weight 121.818, kg, PRN Abnormal Lab Result, For NON-ICU Patients Only., Start date: 10/09/16 14:52:00 W[employer] CUTTER OFF, Duration: 30 day, Stop date: 11/08/16 14:51:00 W[employer] CUTTER OFF No Longer Active 10/09/2016 [facility] potassium phosphate + sodium chloride 0.9% INJ 250 mL 30 mmol, 10 mL, Route: IVPB, PRN, Dosing Weight 121.818, kg, PRN Abnormal Lab Result, For NON-ICU Patients Only., Start date: 10/09/16 14:52:00 [employer] C[employer] OFF, Duration: 30 day, Stop date: 11/08/16 14:51:00 CSTNotes: (Same as: K Phosphate.) 1 mMol phoshate has 1.47 mEq potassium Infuse over 4 hours No Longer Active 10/09/2016 [facility] potassium phosphate-sodium phosphate 250 mg-280 mg-160 mg oral powder for reconstitution 2 pkt, Route: PO, Drug Form: PDR/REC, Dosing Weight 121.818, kg, PRN, PRN Abnormal Lab Result, For NON-ICU Patients Only, Start date: 10/09/16 14:52:00 [employer] C[employer] OFF, Duration: 30 day, Stop date: 11/08/16 14:51:00 CSTNotes: (Same as: Phos-NaK) Each 1.5 gm pkt has 250mg phosphorous. Mix w/2.5oz water and stir. No Longer Active 10/09/2016 [facility] Dexamethasone 4 mg, 0.4 mL, Route: IVP, Drug form: INJ, ONCE, Dosing Weight 121.818, kg, PRN Nausea & Vomiting, Start date: 10/09/16 11:57:00 CSTNotes: MEDICATION WASTE Product Size: 10 mg Product Wasted: ___ mg Inactive 10/09/2016 [facility] Ondansetron 4 mg, 2 mL, Route: IVP, Drug form: INJ, ONCE, Dosing Weight 121.818, kg, PRN Nausea & Vomiting, Start date: 10/09/16 11:57:00 CSTNotes: (Same as: Zofran) MEDICATION WASTE Product Size: 4 mg Product Wasted: ___ mg Inactive 10/09/2016 [facility] Promethazine 6.25 mg, 0.13 mL, Route: IVPB, Drug form: INJ, ONCE, Dosing Weight 121.818, kg, PRN Nausea & Vomiting, Start date: 10/09/16 11:57:00 CSTNotes: (Same as: Phenergan) Inactive 10/09/2016 [facility] Fentanyl 50 microgram, 1 mL, Route: IVP, Drug form: INJ, Q5Min, Dosing Weight 121.818, kg, PRN Pain Score 7-10, Priority: Routine, Start date: 10/09/16 11:57:00 [employer] OFF, Duration: 2 doses or times, Stop date: Limited # of timesNotes: (Same as: Sublimaze) Preservative free. Inactive 10/09/2016 [facility] Hydralazine 10 mg, 0.5 mL, Route: IVP, Drug form: INJ, Q20Min, Dosing Weight 121.818, kg, PRN Elevated BP, Start date: 10/09/16 11:57:00 [employer] CUTTER OFF, Duration: 2 doses or times, Stop date: Limited # of timesNotes: (Same as: Apresoline) Push over 5 minutes Inactive 10/09/2016 [facility] Labetalol 10 mg, 2 mL, Route: IVP, Drug form: INJ, Q5Min, Dosing Weight 121.818, kg, PRN Elevated BP, Start date: 10/09/16 11:57:00 [employer] CUTTER OFF, Duration: 5 doses or times, Stop date: Limited # of times Inactive 10/09/2016 [facility] Ondansetron 4 mg, 2 mL, Route: IVP, Drug form: INJ, Q8H, Dosing Weight 121.818, kg, PRN Nausea & Vomiting, Start date: 10/09/16 11:17:00 [employer] C[employer] OFF, Duration: 30 day, Stop date: 11/08/16 11:16:00 CSTNotes: (Same as: Zofran) MEDICATION WASTE Product Size: 4 mg Product Wasted: ___ mg No Longer Active 10/09/2016 [facility] Sodium Chloride 0.154 MEQ/ML Injectable Solution 750 mL, Rate: 75 ml/hr, Infuse over: 10 hr, Route: IV, Dosing Weight 121.818 kg, Total Volume: 750, Start date: 10/09/16 11:17:00 [employer] C[employer] OFF, Duration: 10 hr, Stop date: 10/09/16 21:16:00 [employer] OFF Inactive 10/09/2016 [facility] Acetaminophen 325 MG / Hydrocodone Bitartrate 5 MG Oral Tablet 1 tab, Route: PO, Drug Form: TAB, Dosing Weight 121.818, kg, Q4H, PRN Pain Score 4-6, Start date: 10/09/16 11:17:00 [employer] OFF, Duration: 30 day, Stop date: 11/08/16 11:16:00 CSTNotes: (Same as: Branch 325/5) Do not exceed 4gm/day of acetaminophen. No Longer Active 10/09/2016 [facility] Hydrochlorothiazide 25 MG / valsartan 160 MG Oral Tablet 1 tab, PO, Daily, # 90 tab, 1 Refill(s) No Longer Active 10/09/2016 [facility] solifenacin succinate 5 MG Oral Tablet [VESICARE] 5 mg=1 tab, PO, Daily, # 30 tab, 0 Refill(s) Active 10/09/2016 [facility] valsartan PO, Valsartan/HCTZ 160/25, 0 Refill(s) Active 09/29/2016 [facility] Clonidine Hydrochloride 0.2 MG Oral Tablet 0.2 mg=1 tab, PO, Daily, 0 Refill(s) Active 09/29/2016 [facility] amLODIPine 2.5 mg oral tablet 2.5 mg=1 tab, PO, Daily, 0 Refill(s) Active 09/29/2016 [facility] ezetimibe 10 MG / Simvastatin 40 MG Oral Tablet [Vytorin 10/40] 1 tab, PO, Daily, 0 Refill(s) Active 09/29/2016 [facility] Metformin hydrochloride 1000 MG Oral Tablet 1,000 mg=1 tab, PO, BID, 0 Refill(s) Active 09/29/2016 [facility] montelukast 10 mg oral tablet 10 mg=1 tab, PO, Daily, 0 Refill(s) Active 09/29/2016 [facility] Home Medication Calcium Polycarbophil 625mg daily, Refill(s) 0 Active 09/29/2016 [facility] sitagliptin 100 MG Oral Tablet [Januvia] 100 mg=1 tab, PO, Daily, 0 Refill(s) Active 09/29/2016 [facility] omeprazole 20 mg oral delayed release capsule 20 mg=1 cap, PO, Daily, 0 Refill(s) Active 09/29/2016 [facility] glimepiride 4 mg, PO, Daily, 0 Refill(s) Active 09/29/2016 [facility] Furosemide 40 MG Oral Tablet 40 mg=1 tab, PO, Daily, 0 Refill(s) Active 09/29/2016 [facility] Aspirin Enteric Coated 81 mg oral delayed release tablet 81 mg=1 tab, PO, Daily, 0 Refill(s) Active 09/29/2016 [facility] Allergies, Adverse Reactions, Alerts Substance Category Reaction Severity Reaction type Status Date Reported Comments Source penicillin Assertion Drug allergy Active [facility] Immunizations Immunization Date Given Site Status Last Updated Comments Source Results Order Name Results Value Reference Range Date Interpretation Comments Source Chest 2 views DX Chest 2 views DX Exam: Two-view chest x-ray Reason for Exam: - asthma, dyspnea Comparison Exam: X-ray 05/11/2017 Discussion: Right hemidiaphragm remains elevated, obscuring the right heart border. Compressive atelectasis is noted within the right lower hemithorax. Mild central vascular congestion. No pleural effusion identified. No appreciable evidence seen for pneumothorax. Mild amount of calcified plaque seen within the thoracic aortic arch. No acute bony abnormalities. Impression: 1. No acute cardiopulmonary abnormalities. Right hemidiaphragm remains elevated. 12/07/2017 - - Read by: David Byrd MD Dictated Date/time: 12/07/17 12:27 Electronically Signed by: David Byrd MD 12/07/17 12:30 FINAL REPORT [facility] Chest 2 views DX Chest 2 views DX EXAM: Chest 2 views DX HISTORY: - R06.09 Other forms of dyspnea COMPARISON: 10/23/2016 Elevation of the right hemidiaphragm is again noted with right basilar atelectasis. Cardiac silhouette is stable with pacing leads and stent again noted. No new abnormality. No effusion or pneumothorax. IMPRESSION: Stable radiographic evaluation of the chest. 05/11/2017 - - Read by: Jay Morton MD Dictated Date/time: 05/11/17 14:08 Electronically Signed by: Jay Morton MD 05/11/17 14:08 FINAL REPORT [facility] Chest 2 views DX Chest 2 views DX EXAM: Chest 2 views DX HISTORY: J98.6 Disorders of diaphragm COMPARISON: 10/10/2016 There is elevation of the right hemidiaphragm, unchanged. Basilar atelectasis in the right lung. The left lung is clear. No effusion or pneumothorax. Heart size is stable with stent and pacing leads again noted. IMPRESSION: Elevation of the right hemidiaphragm appears stable. No acute abnormality. 10/23/2016 - - Read by: Jay Morton MD Dictated Date/time: 10/23/16 15:00 Electronically Signed by: Jay Morton MD 10/23/16 15:00 FINAL REPORT [facility] URINE AND STOOL UA Sq Epi RARE 10/11/2016 [facility] URINE AND STOOL UA Urobilinogen <=1.0 mg/dL 0.1 - 1.0 10/11/2016 [facility] URINE AND STOOL Micro? Performed *NA* (10/11/16 10:35 AM) 10/11/2016 [facility] URINE AND STOOL UA Mucus Few /LPF None Seen /LPF 10/11/2016 [facility] URINE AND STOOL UA WBC 1 /HPF 0 - 5 10/11/2016 [facility] URINE AND STOOL UA Turbidity Clear (10/11/16 10:35 AM) Clear 10/11/2016 [facility] URINE AND STOOL UA Color Light Yellow *NA* (10/11/16 10:35 AM) Yellow 10/11/2016 [facility] URINE AND STOOL UA Spec Grav 1.005 <=1.030 10/11/2016 [facility] URINE AND STOOL UA pH 6.0 5.0 - 8.0 10/11/2016 [facility] URINE AND STOOL UA Nitrite Negative (10/11/16 10:35 AM) Negative 10/11/2016 [facility] URINE AND STOOL UA Bili Negative *NA* (10/11/16 10:35 AM) Negative 10/11/2016 [facility] URINE AND STOOL UA Glucose 200 mg/dL Negative mg/dL 10/11/2016 [facility] URINE AND STOOL UA Ketones Negative mg/dL Negative mg/dL 10/11/2016 [facility] URINE AND STOOL UA Protein 10 mg/dL Negative mg/dL 10/11/2016 [facility] URINE AND STOOL UA Blood Negative (10/11/16 10:35 AM) Negative 10/11/2016 [facility] URINE AND STOOL UA Leuk Est Negative (10/11/16 10:35 AM) Negative 10/11/2016 [facility] CHEM PANEL Phosphorus 1.7 mg/dL 2.5 - 4.5 10/11/2016 [facility] CHEM PANEL Magnesium Lvl 2.1 mg/dL 1.8 - 2.4 10/11/2016 [facility] CHEM PANEL eGFR 60 mL/min/1.73m2 10/11/2016 Result Comment: The eGFR is calculated using the CKD-EPI formula. In most young, healthy individuals the eGFR will be >90 [...] from the National Kidney Disease Education Program (NKDEP) which additionally recommends that when the eGFR is used in patients with extremes of body mass index for purposes of drug dosing, the eGFR should be multiplied by the estimated BMI. [facility] CHEM PANEL Sodium Lvl 136 meq/L 135 - 145 10/11/2016 [facility] CHEM PANEL Calcium Lvl 8.7 mg/dL 8.5 - 10.5 10/11/2016 [facility] CHEM PANEL Potassium Lvl 3.7 meq/L 3.5 - 5.1 10/11/2016 [facility] CHEM PANEL Chloride Lvl 101 meq/L 95 - 109 10/11/2016 [facility] CHEM PANEL CO2 24 meq/L 24 - 32 10/11/2016 [facility] CHEM PANEL Creatinine Lvl 1.15 mg/dL 0.50 - 1.40 10/11/2016 [facility] CHEM PANEL BUN 13 mg/dL 7 - 22 10/11/2016 [facility] CHEM PANEL Glucose Lvl 190 mg/dL 70 - 99 10/11/2016 [facility] CHEM PANEL AGAP 14.7 meq/L 10.0 - 20.0 10/11/2016 [facility] HEMATOLOGY Platelet 185 K/CMM 133 - 450 10/11/2016 [facility] HEMATOLOGY MPV 10.0 fL 7.4 - 10.4 10/11/2016 [facility] HEMATOLOGY RDW 17.4 % 11.5 - 14.5 10/11/2016 [facility] HEMATOLOGY Hct 34.0 % 42.0 - 54.0 10/11/2016 [facility] HEMATOLOGY MCV 76.7 fL 80.0 - 94.0 10/11/2016 [facility] HEMATOLOGY MCH 24.9 pg 27.0 - 31.0 10/11/2016 [facility] HEMATOLOGY MCHC 32.5 g/dL 32.0 - 36.0 10/11/2016 [facility] HEMATOLOGY Hgb 11.0 g/dL 14.0 - 18.0 10/11/2016 [facility] HEMATOLOGY WBC 13.3 K/CMM 3.7 - 10.4 10/11/2016 [facility] HEMATOLOGY RBC 4.43 M/CMM 4.70 - 6.10 10/11/2016 [facility] HEMATOLOGY Basophils # 0.1 K/CMM 0.0 - 0.2 10/11/2016 [facility] HEMATOLOGY Segs-Bands # 10.1 K/CMM 1.5 - 8.1 10/11/2016 [facility] HEMATOLOGY Monocytes # 1.4 K/CMM 0.0 - 0.8 10/11/2016 [facility] HEMATOLOGY Lymphocytes # 1.6 K/CMM 1.0 - 5.5 10/11/2016 [facility] HEMATOLOGY Eosinophils # 0.2 K/CMM 0.0 - 0.5 10/11/2016 [facility] HEMATOLOGY Segs 75.8 % 45.0 - 75.0 10/11/2016 [facility] HEMATOLOGY Monocytes 10.3 % 2.0 - 12.0 10/11/2016 [facility] HEMATOLOGY Lymphocytes 12.0 % 20.0 - 40.0 10/11/2016 [facility] HEMATOLOGY Basophils 0.4 % 0.0 - 1.0 10/11/2016 [facility] HEMATOLOGY Eosinophils 1.5 % 0.0 - 4.0 10/11/2016 [facility] HEMATOLOGY Microcyte 1+ *ABN* (10/11/16 2:19 AM) None Seen 10/11/2016 [facility] Chest 2 views DX Chest 2 views DX EXAM: XR CHEST 2 VIEWS DATE: 10/10/2016 2:06 PM [employer]OW [employer] 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 The cardiomediastinal silhouette is stable with TAVR in place. There is a bipolar left subclavian pacemaker in place with tips over the right atrium and right ventricle. The right hemidiaphragm is elevated. There is right perihilar, right upper lobe and right basilar subsegmental atelectasis. No pleural effusions are identified. IMPRESSION: No significant change. 10/10/2016 - - Read by: Karma Nielsen MD Dictated Date/time: 10/10/16 15:12 Electronically Signed by: Karma Nielsen MD 10/10/16 15:13 FINAL REPORT [facility] CARDIAC ENZYMES BNP 190 pg/mL <=100 pg/mL 10/10/2016 [facility] CHEM PANEL Magnesium Lvl 2.4 mg/dL 1.8 - 2.4 10/10/2016 [facility] ELECTROLYTES AGAP 14.9 meq/L 10.0 - 20.0 10/10/2016 [facility] ELECTROLYTES eGFR 60 mL/min/1.73m2 10/10/2016 Result Comment: The eGFR is calculated using the CKD-EPI formula. In most young, healthy individuals the eGFR will be >90 [...] from the National Kidney Disease Education Program (NKDEP) which additionally recommends that when the eGFR is used in patients with extremes of body mass index for purposes of drug dosing, the eGFR should be multiplied by the estimated BMI. [facility] ELECTROLYTES Calcium Lvl 8.1 mg/dL 8.5 - 10.5 10/10/2016 [facility] ELECTROLYTES BUN 15 mg/dL 7 - 22 10/10/2016 [facility] ELECTROLYTES Creatinine Lvl 1.14 mg/dL 0.50 - 1.40 10/10/2016 [facility] ELECTROLYTES Chloride Lvl 103 meq/L 95 - 109 10/10/2016 [facility] ELECTROLYTES CO2 25 meq/L 24 - 32 10/10/2016 [facility] ELECTROLYTES Potassium Lvl 3.9 meq/L 3.5 - 5.1 10/10/2016 [facility] ELECTROLYTES Sodium Lvl 139 meq/L 135 - 145 10/10/2016 [facility] ELECTROLYTES Glucose Lvl 203 mg/dL 70 - 99 10/10/2016 [facility] HEMATOLOGY PTT 31.8 s 22.9 - 35.8 10/10/2016 [facility] HEMATOLOGY PT 14.3 s 12.0 - 14.7 10/10/2016 [facility] HEMATOLOGY INR 1.09 0.85 - 1.17 10/10/2016 [facility] HEMATOLOGY MPV 10.1 fL 7.4 - 10.4 10/10/2016 [facility] HEMATOLOGY RDW 16.9 % 11.5 - 14.5 10/10/2016 [facility] HEMATOLOGY MCHC 32.4 g/dL 32.0 - 36.0 10/10/2016 [facility] HEMATOLOGY MCH 25.2 pg 27.0 - 31.0 10/10/2016 [facility] HEMATOLOGY Platelet 191 K/CMM 133 - 450 10/10/2016 [facility] HEMATOLOGY Hct 33.5 % 42.0 - 54.0 10/10/2016 [facility] HEMATOLOGY Hgb 10.8 g/dL 14.0 - 18.0 10/10/2016 [facility] HEMATOLOGY MCV 77.6 fL 80.0 - 94.0 10/10/2016 [facility] HEMATOLOGY RBC 4.31 M/CMM 4.70 - 6.10 10/10/2016 [facility] HEMATOLOGY WBC 11.7 K/CMM 3.7 - 10.4 10/10/2016 [facility] HEMATOLOGY Microcyte 1+ *ABN* (10/10/16 3:51 AM) None Seen 10/10/2016 [facility] HEMATOLOGY Eosinophils # 0.2 K/CMM 0.0 - 0.5 10/10/2016 [facility] HEMATOLOGY Monocytes # 1.1 K/CMM 0.0 - 0.8 10/10/2016 [facility] HEMATOLOGY Lymphocytes # 1.2 K/CMM 1.0 - 5.5 10/10/2016 [facility] HEMATOLOGY Segs-Bands # 9.2 K/CMM 1.5 - 8.1 10/10/2016 [facility] HEMATOLOGY Eosinophils 1.4 % 0.0 - 4.0 10/10/2016 [facility] HEMATOLOGY Basophils 0.4 % 0.0 - 1.0 10/10/2016 [facility] HEMATOLOGY Monocytes 9.4 % 2.0 - 12.0 10/10/2016 [facility] HEMATOLOGY Lymphocytes 10.2 % 20.0 - 40.0 10/10/2016 [facility] HEMATOLOGY Segs 78.6 % 45.0 - 75.0 10/10/2016 [facility] CHEM PANEL Magnesium Lvl 1.4 mg/dL 1.8 - 2.4 10/09/2016 [facility] ELECTROLYTES AGAP 9.8 meq/L 10.0 - 20.0 10/09/2016 [facility] ELECTROLYTES eGFR 52 mL/min/1.73m2 10/09/2016 Result Comment: The eGFR is calculated using the CKD-EPI formula. In most young, healthy individuals the eGFR will be >90 [...] from the National Kidney Disease Education Program (NKDEP) which additionally recommends that when the eGFR is used in patients with extremes of body mass index for purposes of drug dosing, the eGFR should be multiplied by the estimated BMI. [facility] ELECTROLYTES CO2 29 meq/L 24 - 32 10/09/2016 [facility] ELECTROLYTES Calcium Lvl 8.3 mg/dL 8.5 - 10.5 10/09/2016 [facility] ELECTROLYTES Creatinine Lvl 1.29 mg/dL 0.50 - 1.40 10/09/2016 [facility] ELECTROLYTES Sodium Lvl 140 meq/L 135 - 145 10/09/2016 [facility] ELECTROLYTES Glucose Lvl 165 mg/dL 70 - 99 10/09/2016 [facility] ELECTROLYTES Chloride Lvl 105 meq/L 95 - 109 10/09/2016 [facility] ELECTROLYTES Potassium Lvl 3.8 meq/L 3.5 - 5.1 10/09/2016 [facility] ELECTROLYTES BUN 23 mg/dL 7 - 22 10/09/2016 [facility] HEMATOLOGY WBC 12.1 K/CMM 3.7 - 10.4 10/09/2016 [facility] HEMATOLOGY RDW 17.0 % 11.5 - 14.5 10/09/2016 [facility] HEMATOLOGY Platelet 178 K/CMM 133 - 450 10/09/2016 [facility] HEMATOLOGY MPV 10.7 fL 7.4 - 10.4 10/09/2016 [facility] HEMATOLOGY RBC 4.17 M/CMM 4.70 - 6.10 10/09/2016 [facility] HEMATOLOGY MCV 77.5 fL 80.0 - 94.0 10/09/2016 [facility] HEMATOLOGY Hgb 10.5 g/dL 14.0 - 18.0 10/09/2016 [facility] HEMATOLOGY Hct 32.3 % 42.0 - 54.0 10/09/2016 [facility] HEMATOLOGY MCHC 32.4 g/dL 32.0 - 36.0 10/09/2016 [facility] HEMATOLOGY MCH 25.1 pg 27.0 - 31.0 10/09/2016 [facility] HEMATOLOGY Monocytes 3.0 % 2.0 - 12.0 10/09/2016 [facility] HEMATOLOGY Lymphocytes 9.0 % 20.0 - 40.0 10/09/2016 [facility] HEMATOLOGY Bands 0.0 % 0.0 - 11.0 10/09/2016 [facility] HEMATOLOGY Eosinophils 5.0 % 0.0 - 4.0 10/09/2016 [facility] HEMATOLOGY Eosinophils # 0.6 K/CMM 0.0 - 0.5 10/09/2016 [facility] HEMATOLOGY Monocytes # 0.4 K/CMM 0.0 - 0.8 10/09/2016 [facility] HEMATOLOGY Lymphocytes # 1.1 K/CMM 1.0 - 5.5 10/09/2016 [facility] HEMATOLOGY Segs-Bands # 10.0 K/CMM 1.5 - 8.1 10/09/2016 [facility] HEMATOLOGY Segs 83.0 % 45.0 - 75.0 10/09/2016 [facility] HEMATOLOGY Microcyte 1+ *ABN* (10/09/16 1:32 PM) None Seen 10/09/2016 [facility] HEMATOLOGY Plt Morph Normal (10/09/16 1:32 PM) 10/09/2016 [facility] HEMATOLOGY Atypical Lymphs 0.0 % <=0.0 % 10/09/2016 [facility] HEMATOLOGY PT 14.6 s 12.0 - 14.7 10/09/2016 [facility] HEMATOLOGY PTT 32.4 s 22.9 - 35.8 10/09/2016 [facility] HEMATOLOGY INR 1.12 0.85 - 1.17 10/09/2016 [facility] Chest 1view DX Chest 1view DX EXAM: XR CHEST 1 VIEW DATE: 10/09/2016 11:17 AM [employer]OW [employer] C[employer] OFF INDICATION: Arrhythmias COMPARISON: 11/26/2015 FINDINGS: Interval TAVR changes are present. Interval placement of left dual-lead pacemaker with leads overlying the right atrium and right ventricle noted. The cardiac silhouette is prominent, likely partially related to low lung volumes. There is moderate elevation of the right hemidiaphragm and bibasilar atelectasis, similar to previous study. Right paratracheal soft tissue fullness noted. While evaluation is limited given semi-erect positioning, no distinct pneumothorax is identified. IMPRESSION: 1. Interval TAVR changes and left chest wall pacemaker placement. 2. Elevation right hemidiaphragm with bibasilar atelectasis, similar previous study. 3. Right paratracheal soft tissue fullness corresponds with confluent vascular structures on 09/30/2016 CT. 10/09/2016 - - Read by: Floyd Hung MD Dictated Date/time: 10/09/16 13:04 Electronically Signed by: Floyd Hung MD 10/09/16 13:06 FINAL REPORT [facility] BLOOD BANK RESULTS Antibody Scrn Negative (10/09/16 6:38 AM) 10/09/2016 [facility] BLOOD BANK RESULTS ABO/Rh O POS 10/09/2016 [facility] BLOOD BANK RESULTS FFP product Product available (10/09/16 6:38 AM) 10/09/2016 [facility] BLOOD BANK RESULTS RBC product Product available (10/09/16 6:38 AM) 10/09/2016 [facility] CHEM PANEL Globulin 3.3 g/dL 2.7 - 4.2 10/09/2016 [facility] CHEM PANEL A/G Ratio 1.1 0.7 - 1.6 10/09/2016 [facility] CHEM PANEL B/C Ratio 18 6 - 25 10/09/2016 [facility] CHEM PANEL Bili Total 0.2 mg/dL 0.2 - 1.3 10/09/2016 [facility] CHEM PANEL Total Protein 7.0 g/dL 6.4 - 8.4 10/09/2016 [facility] CHEM PANEL AST 12 unit/L 0 - 37 10/09/2016 [facility] CHEM PANEL ALT 19 unit/L 0 - 65 10/09/2016 [facility] CHEM PANEL Albumin Lvl 3.7 g/dL 3.5 - 5.0 10/09/2016 [facility] CHEM PANEL Alk Phos 60 unit/L 39 - 136 10/09/2016 [facility] HEMATOLOGY Basophils 1.1 % 0.0 - 1.0 10/09/2016 [facility] HEMATOLOGY Basophils # 0.1 K/CMM 0.0 - 0.2 10/09/2016 [facility] HEMATOLOGY INR 1.02 0.85 - 1.17 10/09/2016 [facility] HEMATOLOGY PTT 32.4 s 22.9 - 35.8 10/09/2016 [facility] HEMATOLOGY PT 13.6 s 12.0 - 14.7 10/09/2016 [facility] CHEM PANEL eGFR 40 mL/min/1.73m2 09/30/2016 Result Comment: The eGFR is calculated using the CKD-EPI formula. In most young, healthy individuals the eGFR will be >90 [...] from the National Kidney Disease Education Program (NKDEP) which additionally recommends that when the eGFR is used in patients with extremes of body mass index for purposes of drug dosing, the eGFR should be multiplied by the estimated BMI. [facility] CHEM PANEL POC Creatinine 1.6 mg/dL 0.5 - 1.4 09/30/2016 [facility] Heart/coronary art TAVR CTA Heart/coronary art TAVR CTA EXAM: CARDIAC COMPUTED TOMOGRAPHY ANGIOGRAPHY DATE: September 30, 2016 INDICATION: Aortic stenosis. COMPARISON: None TECHNIQUE: Contrast imaging was performed on a [employer] Aqu[employer] [address] scanner utilizing a single breath hold. Retrospective ECG gating was performed. Images were reformatted at 0.5 mm intervals and sent to an independent workstation for interpretation. 90 ml of Visipaque 320 IV contrast was delivered via an 18 gauge IV catheter utilizing a power injector at 5 cc/sec and followed by 50 cc of normal saline bolus as a chaser. OVERALL STUDY QUALITY: Fair FINDINGS: Aortic valve: Trileaflet, symmetrically and moderately calcified. Coronary Arteries: This patient has a probably right dominant system with the origin of the coronary arteries being normal. The study quality precludes interpretation for the presence of possible flow- limiting stenoses. There is calcified atheroma involving mostly the left circumflex artery but also the proximal segment of the left anterior descending as well as the right coronary artery. Myocardium Appearance \\T\\ Function: Left ventricle is borderline dilated, with preserved systolic function, and moderate concentric hypertrophy. Ejection Fraction: >70% EUQ=454 cc ESV=25 cc UM=665 cc Lung calvillo to the extent visualized in limited study: Please see radiologist interpretation for extracardiac findings. IMPRESSION: Aortic valve disease. Three-vessel coronary artery disease. 09/30/2016 - - Read by: Josh Guillen MD Dictated Date/time: 09/30/16 15:41 Electronically Signed by: Josh Guillen MD 09/30/16 15:52 FINAL REPORT [facility] Chest/Abd/Pelvis TAVR CTA Chest/Abd/Pelvis TAVR CTA EXAM: CTA CHEST WITH AND WITHOUT CONTRAST EXAM: CTA ABDOMEN AND PELVIS WITH AND WITHOUT CONTRAST DATE: 09/30/2016 8:09 AM W[employer]OW [employer] C[employer] OFF INDICATION: Dyspnea on exertion ADDITIONAL INFORMATION: None. COMPARISON: None. TECHNIQUE: Volumetric CT acquisition of the chest, abdomen and pelvis during precontrast, arterial and venous phases. Axial, coronal and sagittal reconstructions. MIP reformats are created at the acquisition workstation. FINDINGS: Aorta and proximal branches: There is no evidence of intramural or periaortic hematoma. The innominate, proximal subclavian, and common carotid arteries are normal in branching order and size. Two right renal arteries are present and patent. One patent left renal artery is present. The aorta measures: 3.6 cm at the ascending aorta at the level of the pulmonary artery, 3.0 cm at the mid arch, 2.9 cm at the descending aorta at the level of the main pulmonary artery, 3.0 cm at the level of the aortic hiatus, 2.7 cm at the level of the renal arteries 2.5 cm just proximal to the iliac bifurcation Right pelvis: 1.1 cm at the mid right common iliac 1.0 cm at the right external iliac artery 1.3 cm at the right common femoral artery at the level of the femoral head Left pelvis: 1.1 cm at the mid left common iliac 1.0 cm at the left external iliac artery 1.1 cm left femoral artery at the level of the femoral head Calcific scores: Ascending aorta: 0 Aortic arch: 1 Descending thoracic aorta: 1 Aorta at diaphragm: 1 Suprarenal abdominal aorta: 1 Infrarenal abdominal aorta: 2 0 :none 1 :punctate calcifications 2 : <50% of vessel circumference is confluent calcification 3 : >50% of vessel circumference is confluent calcification Lines/tubes: None. Heart and mediastinum: The thyroid gland is normal. No mediastinal, hilar or axillary lymphadenopathy is seen. Aortic valve calcifications are present. Multivessel coronary artery calcifications are also identified. Pleura: The pleural spaces are clear. Lungs and Airways: No pulmonary nodules. No focal consolidation. ABDOMEN/PELVIS: Hepatobiliary: No focal hepatic lesions. No biliary ductal dilatation. Spleen: No splenomegaly. Pancreas: No focal masses or ductal dilatation. Adrenals: No adrenal nodules. Kidneys/Ureters: No hydronephrosis, stones, or solid mass lesions. Pelvic Organs/Bladder: The bladder is unremarkable. The prostate gland is mildly enlarged with punctate dystrophic calcification. Peritoneum/Retroperitoneum: No free air or fluid. Lymph nodes: No lymphadenopathy. Vessels: There is circumferential vascular calcification of the infrarenal abdominal aorta with atheromatous plaque. 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 Gastrointestinal Tract: Normal caliber. Multiple diverticula are present within the descending and sigmoid colon without evidence of inflammation. BONES AND SOFT TISSUE: Small bilateral fat-containing inguinal hernias are present. There is grade 1 retrolisthesis of L2 on L3. IMPRESSION: 1. Aortic measurements for TAVR evaluation, as above. 2. Two patent right renal arteries. 3. Abdominal aortic atherosclerotic disease. 4. Diverticulosis without evidence of diverticulitis. 09/30/2016 - - This report was dictated by a Rail Car Painter/Sandblaster/Fellow. I have personally reviewed the images as well as the Resident's interpretation and agree with the findings. Read by: Suzan Parry MD Resident: Suzan Parry MD Dictated Date/time: 09/30/16 14:58 Electronically Signed by: Beny Hawley MD 10/02/16 10:37 FINAL REPORT [facility] Chest 2 views DX Chest 2 views DX CHEST PA AND LATERAL History: 80-year-old male with chronic obstructive pulmonary disease. Comparison: 10/05/2014. Findings: Right hemidiaphragm is significantly elevated, stable. The lungs are partial expanded and no infiltrate, mass or pleural effusion seen. Linear densities at bases right more than left are likely subsegmental atelectasis. Cardiomediastinal structures are within normal limits. Osseous structures are unremarkable. IMPRESSION: There is no acute cardio pulmonary abnormality. 11/26/2015 - - Read by: Conrado White MD Dictated Date/time: 11/26/15 14:00 Electronically Signed by: Conrado White 11/26/15 14:01 FINAL REPORT [facility] Chest 2 views Chest 2 views CHEST RADIOGRAPHY CLINICAL HISTORY: Elevated diaphragm COMPARISON IMAGIN07/09/2010, 08/08/2012, 10/10/2013 FINDINGS: Two views of the chest were acquired and submitted for evaluation. Right hemidiaphragm remains elevated with associated atelectasis. Stable right upper lobe scarring. The left lung remains clear. Cardiac silhouette is stable. Prominent right hilum is also noted, similar to prior study. Osseous structures are stable. IMPRESSION: Stable examination of the chest without evidence of acute cardiopulmonary abnormality. 10/04/2014 - - Read by: Carlyn Roberts DO Dictated Date/time: 10/04/14 10:35 Electronically Signed by: Carlyn Roberts DO 10/04/14 10:37 FINAL REPORT [facility] Chest 2 views Chest 2 views Exam: Chest x-ray, 2 views Reason for Exam: Shortness of breath Comparison Exam: Chest x-ray 08/08/2012 and 09/08/2010 Discussion: Cardiac silhouette is within normal limits for size. Right hemidiaphragm remains elevated without interval change. Ill-defined opacification seen overlying the right hilar region is stable. No evidence for pleural effusion or pneumothorax. Mild scattered degenerative disc disease seen within the thoracic spine. Impression: 1. No significant interval change when compared to most recent chest x-ray. 10/10/2013 - - Read by: David Byrd Dictated Date/time: 10/10/13 17:38 Electronically Signed by: David Byrd MD 10/10/13 17:40 FINAL REPORT [facility] Vital Signs Vital Sign Value Date Comments Source Height 177.8 cm 11/09/2016 [facility] Weight 118.324 11/09/2016 [facility] BMI Calculated 37.43 11/09/2016 [facility] Systolic (mm Hg) 160 11/09/2016 [facility] Diastolic (mm Hg) 70 11/09/2016 [facility] Heart Rate 68 11/09/2016 [facility] Temperature Oral (F) 98.0 F 11/09/2016 [facility] BMI Calculated 38.4 10/19/2016 [facility] Weight 121.392 10/19/2016 [facility] Height 177.8 cm 10/19/2016 [facility] Heart Rate 78 10/19/2016 [facility] Temperature Oral (F) 97.9 F 10/19/2016 [facility] Respitory Rate 24 10/19/2016 [facility] Systolic (mm Hg) 150 10/19/2016 [facility] Diastolic (mm Hg) 60 10/19/2016 [facility] Systolic (mm Hg) 126 10/11/2016 [facility] Diastolic (mm Hg) 75 10/11/2016 [facility] Systolic (mm Hg) 146 10/11/2016 [facility] Diastolic (mm Hg) 119 10/11/2016 [facility] Temperature Oral (F) 99.0 F 10/11/2016 [facility] Temperature Oral (F) 99.2 F 10/11/2016 [facility] Temperature Oral (F) 98.1 F 10/11/2016 [facility] Systolic (mm Hg) 142 10/11/2016 [facility] Diastolic (mm Hg) 71 10/11/2016 [facility] Respitory Rate 18 10/11/2016 [facility] Respitory Rate 18 10/11/2016 [facility] Respitory Rate 20 10/11/2016 [facility] BMI Calculated 38.53 10/09/2016 [facility] Height 177.8 cm 10/09/2016 [facility] Weight 121.818 10/09/2016 [facility] Height 177.8 cm 09/30/2016 [facility] Weight 118.636 09/30/2016 [facility] BMI Calculated 37.53 09/30/2016 [facility] Temperature Oral (F) 98.0 F 09/29/2016 [facility] Height 177.8 cm 09/29/2016 [facility] Weight 118.835 09/29/2016 [facility] BMI Calculated 37.59 09/29/2016 [facility] Heart Rate 66 09/29/2016 [facility] Respitory Rate 18 09/29/2016 [facility] Encounters Location Location Details Encounter Type Encounter Number Reason For Visit Attending Provider ADM Date DC Date Status Source OD [id number] 786.05 - SHORTNESS OF BR JORGE LUIS LEUNG 08/08/2012 Active [facility] [place] [facility] [place] [facility] [id number] Jorge Luis Leung 10/04/2014 10/05/2014 [facility] [place] [facility] [place] [facility] [id number] Jorge Luis Leung 11/26/2015 11/27/2015 [facility] [place] [facility] [facility] [id number] Bridget Herzog 09/29/2016 09/30/2016 [facility] Out[facility] [id number] Beni Booth 09/30/2016 10/01/2016 [facility] Inpatient [id number] Bridget Herzog 10/09/2016 10/11/2016 [facility] Outpatient [id number] Alexis Ziegler 10/19/2016 10/20/2016 [facility] [id number] Jorge Luis Leung 10/23/2016 10/24/2016 [facility] Out[facility] [id number] Bridget Herzog 11/09/2016 11/10/2016 [facility] [id number] Jorge Luis Leung 05/11/2017 05/12/2017 [facility] [id number] Jorge Luis Leung 12/07/2017 12/08/2017 [facility] Procedures Procedure Code Date Perfomer Comments Source
--- OUTSIDE RECORDS SUMMARY | 2018-07-07 07:46 | XMS REPORT ---
Author Author [facility] Address Unknown Phone Unavailable Care Team Providers Care Draw Hand Name Role Phone Ailyn VELA Unavailable Unavailable NORBERTO FUCHS Unavailable Unavailable Problems This patient has no known problems. Allergies, Adverse Reactions, Alerts This patient has no known allergies or adverse reactions. Medications This patient has no known medications. Results Test Description Test Time Test Comments Text Results Atomic Results Result Comments CHEST 2 VIEWS 2018-07-01 14:17:00 [place] [address] Patient Name: DIANE OREILLY MR #: [id number] : 1935 Age/Sex: 82/M Req #: [id number] Adm Physician: Ordered by: VINH VELA MD Report #: [id number] Location: OR Room/Bed: Procedure: [id number] DX/CHEST 2 VIEWS Exam Date: Exam Time: REPORT STATUS: Signed EXAMINATION: CHEST 2 VIEWS INDICATION: COMPARISON: CT abdomen and pelvis 05/31/2018 FINDINGS: PA and lateral views TUBES and LINES: 2-lead pacemaker device overlying the left mid chest with leads overlying the right atrium and right ventricle. LUNGS: Lungs are well inflated. Pleural-based linear scarring in the right upper lobe. Bandlike opacity in the right lower lobe with associated volume loss worse since prior CT. Minimal atelectasis in the left lower lobe. PLEURA: No pleural effusion or pneumothorax. HEART AND MEDIASTINUM: The cardiomediastinal silhouette is unremarkable. 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 Moderate calcifications of the aortic arch. BONES AND SOFT TISSUES: No acute osseous lesion. Soft tissues are unremarkable. UPPER ABDOMEN: No free air under the diaphragm. IMPRESSION: Worsening bandlike opacity at the right lower lobe associated with volume loss may reflect worsening partial collapse of the right lower lobe versus superimposed pneumonia in the proper clinical setting. Recommend follow-up. Signed by: Dr. Fawad Perez M.D. on 07/01/2018 2:19 PM Dictated By: FAWAD PEREZ MD 18 Transcribed By: KIERA on 07/01/181418 COPY TO: VINH VELA MD CT ABDOMEN/PELVIS W 2018-05-31 12:23:00 [place] [address] Patient Name: DIANE OREILLY MR #: [id number] : 1935 Age/Sex: 82/M Req #: [id number] Adm Physician: Ordered by: NORBERTO FUCHS MD Report #: [id number] Location: CT Room/Bed: Procedure: [id number] CT/CT ABDOMEN/PELVIS W Exam Date: 05/31/18 Exam Time: 1100 REPORT STATUS: Signed EXAMINATION: CT of the abdomen and pelvis with contrast. TECHNIQUE: Spiral CT images of the abdomen and pelvis were performed from the lung bases to the lesser trochanters after the intravenous administration of 100 cc of Isovue 370 and the oral administration of dilute Gastrografin. Coronal and sagittal reformatted images were obtained. COMPARISON: None. CLINICAL HISTORY:History of colon cancer, sessile polypoid lesion in the hepatic flexure on colonoscopy 05/27/2018 DISCUSSION: ABDOMEN/PELVIS: LOWER THORAX:Subsegmental atelectasis versus scarring in the right middle lobe. Atelectatic changes in the right lower lobe secondary to eventration of the right diaphragm. Atherosclerotic calcification of the coronary arteries and thoracic aorta. Distal portion of cardiac wires noted in the right ventricle. HEPATOBILIARY: No focal hepatic lesions. No intra or extrahepatic biliary ductal dilation. GALLBLADDER: No radio-opaque stones or sludge. No wall thickening. SPLEEN: No splenomegaly. PANCREAS: No focal masses or ductal dilatation. ADRENALS: No adrenal nodules. KIDNEYS/URETERS: No hydronephrosis, stones, or solid mass lesions. PELVIC ORGANS/BLADDER: Bladder is unremarkable. Prostate is unremarkable. PERITONEUM/RETROPERITONEUM: No free air or fluid. LYMPH NODES: No intra- abdominal, retroperitoneal, pelvic or inguinal lymphadenopathy. VESSELS: The celiac trunk,superior and inferior mesenteric and bilateral renal arteries are patent The portal, superior mesenteric and splenic veins are patent. Atherosclerotic calcification of the abdominal aorta and proximal vessels with presence of moderate soft plaque in the proximal abdominal aorta (series 2, image 28 and 36). Focal ectasia of the infrarenal abdominal aorta, which measures approximately 3.5 cm in AP diameter (series 2, image 48 and sagittal image 85). GI TRACT: No bowel dilation or evidence of obstruction. Descending and sigmoid colon diverticulosis, without diverticulitis. No definite intraluminal masses noted at the hepatic flexure. BONES AND SOFT TISSUE: No aggressive lytic lesions. Bilateral fat-containing inguinal hernias, left greater than right. IMPRESSION: 1. No intraluminal bowel masses are identified. 2. Descending colon and sigmoid diverticulosis, without diverticulitis. 3. Focal ectasia of the infrarenal abdominal aorta measuring approximately 3.5 cm in AP diameter. Signed by: Dr. Mario Cisse M.D. on 05/31/2018 12:42 PM Dictated By: MARIO CISSE MD 1242 Transcribed By: KIERA on 05/31/18 1242 COPY TO: NORBERTO FUCHS MD
[2018-07-07] MEDS ORDERED: MINERAL OIL STERILE 10ML VIAL ONE (09:59)
[2018-07-07] MEDS ORDERED: AMLODIPINE BESYL5 MG PO (10:11)
[2018-07-07 10:28] LABS: ANION GAP 16.4 mmol/L (8-16); CREATININE, SERUM 1.76 mg/dL (0.72-1.25); POTASSIUM 4.4 mmol/L (3.5-5.1)
[2018-07-07] MEDS ORDERED: LEVOFLOXACIN 500MG/D5W 100ML 100 ML IV ONE ×2 (10:47→13:15)
[2018-07-07] MEDS ORDERED: BUPIVACAINE HCL 0.5% INJ 30 ML VIAL INJ ONE (11:24)
[2018-07-07] MEDS ORDERED: ACETAMINOPHEN 1000 MG/100 ML IV PRN (13:15)
[2018-07-07] MEDS ORDERED: HYDROMORPHONE 1MG/1ML INJ IV PRN (13:15)
[2018-07-07 13:50] VITALS: BP 126/58
[2018-07-07] MEDS: SODIUM CHLORIDE 0.9% 1000ML 1,000 ML IV SCH (14:20)
[2018-07-07] MEDS: SODIUM CHLORIDE 0.9% 250ML IRRIG IR SCH ×3 (14:21→21:20)
[2018-07-07 14:38] VITALS: BP 126/58
--- NOTE | 2018-07-07 14:55 | Operative Report ---
DATE OF PROCEDURE: July 07, 2018 PREOPERATIVE DIAGNOSIS: Polypoid mass of the hepatic flexure of the colon. POSTOPERATIVE DIAGNOSIS: Polypoid mass of the hepatic flexure of the colon, rule out malignancy, pending permanent section. OPERATION PERFORMED: Laparoscopic partial right colectomy. TRAVEL DIRECTOR: Dr. John Larkin ANESTHESIA: General endotracheal. COMPLICATIONS: None. ESTIMATED BLOOD LOSS: 25 mL. DESCRIPTION OF PROCEDURE: With the patient lying in bed in the supine position under good general endotracheal anesthesia, the abdomen was prepped with Betadine solution and draped in the usual manner. A Veress needle was introduced into the right upper quadrant, and pneumoperitoneum was established without any difficulty. A 5-mm trocar was placed in the right subcostal region, and a 5-mm video laparoscope was placed into the intraabdominal cavity. Under direct vision, another 5-mm trocar was placed in the right lower quadrant. Another 5-mm trocar was placed in the left upper abdomen. Video laparoscopy at this point revealed the patient to have a rather redundant right colon. The tattoo that had been placed to fanny the area of the polypoid mass was clearly visible in the hepatic flexure. The liver and the rest of the abdominal exploration were otherwise within normal limits. The right colon and hepatic flexure were then mobilized using the LigaSure device and was totally taken off of the lateral right gutter, and also the hepatic flexure was brought down. The duodenum was visualized and preserved. Similarly, the transverse colon was mobilized. At this point, the right colon was rather easily movable. We decided simply to make a small incision in the right upper quadrant. Incision was made in the right upper quadrant and carried down through the subcutaneous tissue and through the superficial fascia. The posterior rectus sheath was opened, and the peritoneum was entered. The right colon could easily be delivered through the small incision without any difficulty, and the mass lesion at the hepatic flexure could then be palpated easily. Proximal and distal to the lesion, the colon was then divided with applications of the [place] stapler. The mesentery of the colon was divided with the LigaSure device, and the specimen was sent for pathological examination. The anastomosis was then performed bringing the ascending colon to the transverse colon with another application of the [place] stapler, and the remaining opening was closed with another application of the [place] stapler. Gloves and instruments were then changed. The anastomosis was reinforced with 3-0 silk sutures, and the mesenteric rent was closed with a running suture of 2-0 Vicryl. The bowel was then easily reduced back to the intraabdominal cavity, and the right upper quadrant incision was closed in layers. The posterior rectus sheath was closed with a running suture of #1 Vicryl. The anterior rectus sheath was closed with #1 Vicryl. Subcutaneous tissue was approximated with chromic, and the skin was closed with clips. The abdomen was then again insufflated, and the whole area was inspected for bleeding, and there was none. The excess fluid was aspirated. The pneumoperitoneum was evacuated, and all the trocars were removed under direct vision. The 5-mm trocar sites were closed with stepan. Dressings were applied. The sponge, lap and needle count was correct. The patient tolerated the procedure well and returned to the recovery room in stable condition. Job#: [id number]
[2018-07-07] MEDS: PANTOPRAZOLE 40 MG 10ML VIAL IV SCH (15:01)
[2018-07-07 16:49] VITALS: BP 123/56
[2018-07-07] MEDS: NITROGLYCERIN 2% OINT 1 GM PKT TOP SCH (17:20)
[2018-07-07] MEDS ORDERED: FENTANYL CITRATE/PF 100MCG/2 ML INJ ONE (17:46)
[2018-07-07] MEDS: INSULIN REGULAR, HUMAN 100 UNIT/1 ML 3ML VIAL SQ SCH (18:00)
[2018-07-07] MEDS ORDERED: SEVOFLURANE INHAL SOLN 250 ML PEN BTL ONE (19:41)
[2018-07-07] MEDS ORDERED: DEXAMETHASONE SOD PHOS INJ 4 MG/ML VIAL ONE (19:41)
[2018-07-07] MEDS ORDERED: NEOSTIGMINE 5 MG/5ML SYR ONE (19:41)
[2018-07-07] MEDS ORDERED: ONDANSETRON HCL INJ 2 MG/ML VIAL ONE (19:41)
[2018-07-07] MEDS ORDERED: PHENYLEPHRINE HCL 1% 10 MG/ML VIAL ONE (19:41)
[2018-07-07] MEDS ORDERED: LIDOCAINE HCL 2% LOCAL INJ 5 ML SDV VIAL INJ ONE (19:41)
[2018-07-07] MEDS ORDERED: ROCURONIUM BROMIDE 10 MG/ML 5ML VIAL ONE (19:41)
[2018-07-07] MEDS ORDERED: PROPOFOL IV EMULSION 10 MG/ML 20 ML VIAL ONE (19:41)
[2018-07-07] MEDS ORDERED: GLYCOPYRROLATE INJ 1MG/ 5 ML SYR ONE (19:41)
[2018-07-07 20:00] VITALS: BP 113/53
[2018-07-07 23:46] VITALS: BP 113/53
[2018-07-08] VITALS (8 sets, daily range): BP systolic 123–151; BP diastolic 60–87
[2018-07-08] MEDS: SODIUM CHLORIDE 0.9% 1000ML 1,000 ML IV SCH ×3 (00:29→20:54)
[2018-07-08] MEDS: INSULIN REGULAR, HUMAN 100 UNIT/1 ML 3ML VIAL SQ SCH ×4 (01:30→18:56)
[2018-07-08] MEDS: SODIUM CHLORIDE 0.9% 250ML IRRIG IR SCH ×6 (01:30→21:30)
[2018-07-08] MEDS: NITROGLYCERIN 2% OINT 1 GM PKT TOP SCH ×4 (05:51→17:31)
[2018-07-08 06:02] LABS: BASOPHILS % 0.2 % (0.0-1.0); EOSINOPHILS # (AUTO) 0.1 (0.0-0.4); EOSINOPHILS % 0.4 % (0.0-6.0); HEMATOCRIT 28.4 % (38.2-49.6); HEMOGLOBIN 8.7 g/dL (14.0-18.0); LYMPHOCYTES # (AUTO) 0.9 (1.0-3.2); LYMPHOCYTES % 5.9 % (18.0-39.1); MEAN CORPUSCULAR HEMOGLOBIN 23.5 pg (28-32); MEAN CORPUSCULAR HGB CONC 30.6 g/dL (31-35); MEAN CORPUSCULAR VOLUME 76.5 fL (81-99); MONOCYTES # (AUTO) 1.2 (0.2-0.8); MONOCYTES % 7.5 % (4.4-11.3); NEUTROPHILS # (AUTO) 13.6 (2.1-6.9); NEUTROPHILS % 85.2 % (38.7-80.0); PLATELET COUNT 234 x10e3/uL (140-360); RED BLOOD COUNT 3.71 x10e6/uL (4.3-5.7); RED CELL DISTRIBUTION WIDTH 17.2 % (11.7-14.4)
[2018-07-08 06:21] LABS: ANION GAP 14.4 mmol/L (8-16); CALCIUM 8.5 mg/dL (8.4-10.2); CREATININE, SERUM 1.52 mg/dL (0.72-1.25); POTASSIUM 4.4 mmol/L (3.5-5.1)
[2018-07-08] MEDS: METOPROLOL SUCCINATE 50 MG TAB XL PO SCH (08:31)
[2018-07-08] MEDS: METOPROLOL TARTRATE INJ 1 MG/ML VIAL IV SCH (08:53)
[2018-07-08] MEDS ORDERED: METOPROLOL SUCCINATE 50 MG TAB XL PO SCH (09:00)
[2018-07-08] MEDS ORDERED: AMLODIPINE BESYLATE 5 MG TAB PO SCH (09:00)
[2018-07-08] MEDS: PANTOPRAZOLE 40 MG 10ML VIAL IV SCH (15:40)
[2018-07-09] VITALS (8 sets, daily range): BP systolic 124–168; BP diastolic 58–76
[2018-07-09] MEDS: NITROGLYCERIN 2% OINT 1 GM PKT TOP SCH ×4 (01:00→17:48)
[2018-07-09] MEDS: INSULIN REGULAR, HUMAN 100 UNIT/1 ML 3ML VIAL SQ SCH ×4 (01:00→18:05)
[2018-07-09] MEDS: SODIUM CHLORIDE 0.9% 250ML IRRIG IR SCH ×6 (01:13→21:15)
[2018-07-09 06:35] LABS: BASOPHILS # (AUTO) 0.1 (0.0-0.1); BASOPHILS % 0.3 % (0.0-1.0); EOSINOPHILS # (AUTO) 0.1 (0.0-0.4); EOSINOPHILS % 0.6 % (0.0-6.0); HEMATOCRIT 31.5 % (38.2-49.6); HEMOGLOBIN 9.8 g/dL (14.0-18.0); LYMPHOCYTES # (AUTO) 1.1 (1.0-3.2); LYMPHOCYTES % 4.7 % (18.0-39.1); MEAN CORPUSCULAR HGB CONC 31.1 g/dL (31-35); MONOCYTES # (AUTO) 1.7 (0.2-0.8); MONOCYTES % 7.4 % (4.4-11.3); NEUTROPHILS # (AUTO) 19.3 (2.1-6.9); NEUTROPHILS % 85.8 % (38.7-80.0); PLATELET COUNT 279 x10e3/uL (140-360); RED BLOOD COUNT 4.09 x10e6/uL (4.3-5.7); RED CELL DISTRIBUTION WIDTH 17.4 % (11.7-14.4)
[2018-07-09 06:53] LABS: ANION GAP 18.3 mmol/L (8-16); CALCIUM 9.2 mg/dL (8.4-10.2); CREATININE, SERUM 1.2 mg/dL (0.72-1.25); POTASSIUM 4.3 mmol/L (3.5-5.1)
[2018-07-09 07:13] LABS: LYMPHOCYTES % (MANUAL) 4 % (19-48); MONOCYTES % (MANUAL) 3 % (3.4-9.0); NEUTROPHILS % (MANUAL) 93 % (40-74); PLATELET ESTIMATE ADEQUATE; RBC MORPHOLOGY COMMENT NORMAL
[2018-07-09 07:14] LABS: PLATELET MORPHOLOGY COMMENT NORMAL
[2018-07-09] MEDS: SODIUM CHLORIDE 0.9% 1000ML 1,000 ML IV SCH ×2 (07:42→15:21)
[2018-07-09] MEDS: METOPROLOL SUCCINATE 50 MG TAB XL PO SCH (09:00)
[2018-07-09] MEDS: METOPROLOL TARTRATE INJ 1 MG/ML VIAL IV SCH (09:04)
[2018-07-09] MEDS ORDERED: FUROSEMIDE INJ 10 MG/ML 4 ML VIAL IV NR (12:15)
[2018-07-09] MEDS: PANTOPRAZOLE 40 MG 10ML VIAL IV SCH (15:21)
[2018-07-09] MEDS: ACETAMINOPHEN 1000 MG/100 ML IV PRN ×2 (15:41→21:41)
[2018-07-10] VITALS (8 sets, daily range): BP systolic 128–164; BP diastolic 61–70
[2018-07-10] MEDS: INSULIN REGULAR, HUMAN 100 UNIT/1 ML 3ML VIAL SQ SCH ×2 (00:20→05:51)
[2018-07-10] MEDS: NITROGLYCERIN 2% OINT 1 GM PKT TOP SCH ×3 (00:21→12:44)
[2018-07-10] MEDS: SODIUM CHLORIDE 0.9% 1000ML 1,000 ML IV SCH ×3 (01:08→19:58)
[2018-07-10] MEDS: SODIUM CHLORIDE 0.9% 250ML IRRIG IR SCH ×2 (01:15→05:15)
[2018-07-10] MEDS: ACETAMINOPHEN 1000 MG/100 ML IV PRN ×2 (04:37→13:40)
[2018-07-10 05:15] LABS: BASOPHILS # (AUTO) 0.1 (0.0-0.1); BASOPHILS % 0.3 % (0.0-1.0); EOSINOPHILS # (AUTO) 0.5 (0.0-0.4); EOSINOPHILS % 2.9 % (0.0-6.0); HEMATOCRIT 30.1 % (38.2-49.6); HEMOGLOBIN 9.3 g/dL (14.0-18.0); LYMPHOCYTES # (AUTO) 1.1 (1.0-3.2); LYMPHOCYTES % 6.2 % (18.0-39.1); MEAN CORPUSCULAR HEMOGLOBIN 23.7 pg (28-32); MEAN CORPUSCULAR HGB CONC 30.9 g/dL (31-35); MEAN CORPUSCULAR VOLUME 76.8 fL (81-99); MONOCYTES # (AUTO) 1.3 (0.2-0.8); MONOCYTES % 7.5 % (4.4-11.3); NEUTROPHILS # (AUTO) 14.6 (2.1-6.9); PLATELET COUNT 273 x10e3/uL (140-360); RED BLOOD COUNT 3.92 x10e6/uL (4.3-5.7); RED CELL DISTRIBUTION WIDTH 17.9 % (11.7-14.4)
[2018-07-10 05:31] LABS: ANION GAP 16.9 mmol/L (8-16); BLOOD UREA NITROGEN 14 mg/dL (7-26); BUN/CREATININE RATIO 13 (6-25); CALCIUM 9.3 mg/dL (8.4-10.2); CARBON DIOXIDE 20 mmol/L (22-29); CHLORIDE 104 mmol/L (98-107); CREATININE, SERUM 1.11 mg/dL (0.72-1.25); EST GLOMERULAR FILTRATION RATE > 60 ML/MIN (60-); GLUCOSE 160 mg/dL (74-118); POTASSIUM 3.9 mmol/L (3.5-5.1); SODIUM 137 mmol/L (136-145)
[2018-07-10] MEDS: METOPROLOL SUCCINATE 50 MG TAB XL PO SCH (08:26)
[2018-07-10] MEDS: METOPROLOL TARTRATE INJ 1 MG/ML VIAL IV SCH (08:26)
[2018-07-10] MEDS ORDERED: INSULIN REGULAR, HUMAN 100 UNIT/1 ML 3ML VIAL SQ SCH (11:30)
[2018-07-10] MEDS: PANTOPRAZOLE 40 MG 10ML VIAL IV SCH (14:59)
[2018-07-10] MEDS ORDERED: BISACODYL 10 MG SUPP PR NR (15:45)
[2018-07-10] MEDS: METFORMIN HCL 500 MG TAB PO SCH (17:19)
[2018-07-10] MEDS: GLIMEPIRIDE 2 MG TAB PO SCH (17:19)
[2018-07-10] MEDS: FUROSEMIDE 40 MG TAB PO SCH (17:19)
[2018-07-10] MEDS: MONTELUKAST SODIUM 10 MG TAB PO SCH (20:08)
[2018-07-10] MEDS: HYDROMORPHONE 2MG/ML 2 MG/ML ML IV PRN ×2 (20:21→23:25)
[2018-07-10] MEDS: ONDANSETRON HCL INJ 2 MG/ML VIAL IV PRN (20:21)
[2018-07-11] VITALS (8 sets, daily range): BP systolic 129–169; BP diastolic 59–74
[2018-07-11] MEDS: HYDROMORPHONE 2MG/ML 2 MG/ML ML IV PRN ×2 (05:11→13:30)
[2018-07-11] MEDS: SODIUM CHLORIDE 0.9% 1000ML 1,000 ML IV SCH ×2 (07:08→17:08)
[2018-07-11] MEDS: METOPROLOL SUCCINATE 50 MG TAB XL PO SCH (11:00)
[2018-07-11] MEDS: METOLAZONE 5 MG TAB PO SCH (11:00)
[2018-07-11] MEDS: SOLIFENACIN SUCCINATE 5 MG TAB PO SCH (11:00)
[2018-07-11] MEDS: PANTOPRAZOLE SOD 40 MG TABEC PO SCH (11:00)
[2018-07-11] MEDS: SITAGLIPTIN 100 MG TAB PO SCH (11:00)
[2018-07-11] MEDS: GLIMEPIRIDE 2 MG TAB PO SCH ×2 (11:00→17:39)
[2018-07-11] MEDS: METFORMIN HCL 500 MG TAB PO SCH ×2 (11:00→17:38)
[2018-07-11] MEDS: VALSARTAN 160 MG TAB PO SCH (11:00)
[2018-07-11] MEDS: FUROSEMIDE 40 MG TAB PO SCH ×2 (11:00→17:39)
[2018-07-11] MEDS: HYDROCHLOROTHIAZIDE 25 MG TAB PO SCH (11:00)
[2018-07-11] MEDS: ONDANSETRON HCL INJ 2 MG/ML VIAL IV PRN (13:30)
[2018-07-11] MEDS: MONTELUKAST SODIUM 10 MG TAB PO SCH (20:50)
[2018-07-11] MEDS ORDERED: BISACODYL 10 MG SUPP PR ONE (21:00)
[2018-07-12] VITALS (7 sets, daily range): BP systolic 106–129; BP diastolic 52–60
[2018-07-12] MEDS: HYDROMORPHONE 2MG/ML 2 MG/ML ML IV PRN (03:31)
[2018-07-12] MEDS ORDERED: KETOROLAC TROMETHAMINE 30 MG/ML VIAL IV STA ×2 (05:25→12:15)
[2018-07-12] MEDS: FUROSEMIDE 40 MG TAB PO SCH ×2 (05:46→18:00)
[2018-07-12] MEDS: GLIMEPIRIDE 2 MG TAB PO SCH ×2 (09:29→16:30)
[2018-07-12] MEDS: METFORMIN HCL 500 MG TAB PO SCH ×2 (09:29→17:00)
[2018-07-12] MEDS: PANTOPRAZOLE SOD 40 MG TABEC PO SCH (09:29)
[2018-07-12] MEDS: HYDROCHLOROTHIAZIDE 25 MG TAB PO SCH (09:30)
[2018-07-12] MEDS: SITAGLIPTIN 100 MG TAB PO SCH (09:30)
[2018-07-12] MEDS: VALSARTAN 160 MG TAB PO SCH (09:30)
[2018-07-12] MEDS: METOLAZONE 5 MG TAB PO SCH (09:31)
[2018-07-12] MEDS: METOPROLOL SUCCINATE 50 MG TAB XL PO SCH (09:31)
[2018-07-12] MEDS: SOLIFENACIN SUCCINATE 5 MG TAB PO SCH (09:31)
[2018-07-12] MEDS ORDERED: METHYLPREDNISOLONE SOD SUCC 125 MG/2ML VIAL IV ONE (12:15)
[2018-07-12] MEDS ORDERED: HYDROCODONE/APAP 7.5MG-325MG 1 EA TAB PO PRN (14:45)
[2018-07-12] MEDS ORDERED: ALLOPURINOL 100 MG TAB PO NR (18:45)
[2018-07-12] MEDS: MONTELUKAST SODIUM 10 MG TAB PO SCH (20:38)
[2018-07-13] VITALS: BP 126/56
[2018-07-13 04:00] VITALS: BP 128/59
[2018-07-13] MEDS ORDERED: METHYLPREDNISOLONE SOD SUCC 40 MG/ML VIAL IV ONE (06:00)
[2018-07-13] MEDS: FUROSEMIDE 40 MG TAB PO SCH (06:34)
[2018-07-13 07:50] VITALS: BP 127/60
[2018-07-13] MEDS ORDERED: ALLOPURINOL 100 MG TAB PO SCH (09:00)
[2018-07-13 09:30] VITALS: BP 127/60
[2018-07-13] MEDS: METOPROLOL SUCCINATE 50 MG TAB XL PO SCH (09:31)
[2018-07-13] MEDS: SITAGLIPTIN 100 MG TAB PO SCH (09:31)
[2018-07-13] MEDS: SOLIFENACIN SUCCINATE 5 MG TAB PO SCH (09:31)
[2018-07-13] MEDS: VALSARTAN 160 MG TAB PO SCH (09:31)
[2018-07-13] MEDS: GLIMEPIRIDE 2 MG TAB PO SCH (09:31)
[2018-07-13] MEDS: METFORMIN HCL 500 MG TAB PO SCH (09:31)
[2018-07-13] MEDS: PANTOPRAZOLE SOD 40 MG TABEC PO SCH (09:31)
[2018-07-13] MEDS: HYDROCHLOROTHIAZIDE 25 MG TAB PO SCH (09:31)
[2018-07-13] MEDS: METOLAZONE 5 MG TAB PO SCH (09:32)
[2018-07-13] MEDS ORDERED: TYLENOL # 31 EA PO (09:58)
[2018-07-23] MEDS ORDERED: ADVAIR 250-501 EACH INH (19:17)
--- NOTE | 2018-09-17 12:13 | Consultation ---
DATE OF CONSULTATION: July 08, 2018 REASON FOR CONSULTATION: Postop medical management. HISTORY OF PRESENT ILLNESS: The patient is a gentleman who is status post polypoid mass removal in the abdominal area. I was consulted for postop medical management where he is actually doing well postoperatively with good pain control. PAST MEDICAL HISTORY: Significant for chronic kidney disease stage 3, diabetes, hypertension, COPD, right-sided heart failure. MEDICATIONS: See MAR. ALLERGIES: PENICILLIN. SOCIAL HISTORY: Nonsmoker, nondrinker, , lives at home. FAMILY HISTORY: Noncontributory. PHYSICAL EXAMINATION VITAL SIGNS: Temperature is 98.9, pulse 69, blood pressure 130/63, sats 96%. GENERAL: He is in no apparent distress, lying in bed. NECK: Supple. No lymphadenopathy. CARDIOVASCULAR: Regular rate and rhythm. LUNGS: Clear to auscultation bilaterally but decreased. ABDOMEN: Good bowel sounds. Soft and nontender. EXTREMITIES: No clubbing or cyanosis. NEUROLOGIC: Nonfocal. ASSESSMENT AND PLAN 1. Abdominal pain. Continue with postoperative care per surgery. 2. Chronic kidney disease stage 3. Continue to monitor. 3. Leukocytosis. Continue to monitor. 4. Anemia. Continue to monitor. 5. Diabetes. Continue with current care and monitoring. 6. Hypertension. Continue with his medications and monitor his blood pressure. Please see hospital chart for full details. Job#: [id number]
== END 2018-07-13 11:07 | disposition home or self-care (01) | DRG 331 ==
LOC: OR 07:42 → PACU V 13:14 → MED/SURG 14:30
PROVIDERS: ADMIT Surgery; ATTEND Surgery
PROC: 0DTF4ZZ Resection of Right Large Intestine, Percutaneous Endoscopic Approach (ICD-10-PCS; principal; 2018-07-07 10:30)
DX: D12.3 Benign neoplasm of transverse colon (principal); E11.9 Type 2 diabetes mellitus without complications; I10 Essential (primary) hypertension; E11.22 Type 2 diabetes mellitus with diabetic chronic kidney disease; I12.9 Hypertensive chronic kidney disease with stage 1 through stage 4 chronic kidney disease, or unspecified chronic kidney disease; N18.3 Chronic kidney disease, stage 3 (moderate); D64.9 Anemia, unspecified; M10.9 Gout, unspecified; I25.10 Atherosclerotic heart disease of native coronary artery without angina pectoris
CPT/HCPCS: 36415; 71046; 80048; 82948; 85025; 86850; 86900; 88307; 93005; 96360; C1766; J1100; J1885; J1940; J1956; J2001; J2370; J2405; J2920; J2930; J7030

== ENCOUNTER 2018-09-21 09:49 | Inpatient (IN) | payer MEDICARE, BC ==
[~2018-09-21] VITALS: Ht 177.8 cm; Wt 108.0 kg
[~2018-09-21 09:49] MED LIST changes: +AMLODIPINE BESYL5 MG PO; +TYLENOL # 31 EA PO
[2018-09-21] MEDS ORDERED: INSULIN REGULAR, HUMAN 100 UNIT/1 ML 3ML VIAL IV NR (11:15)
[2018-09-21] MEDS ORDERED: SODIUM CHLORIDE 0.9% 1000ML 1,000 ML IV STA (11:21)
[2018-09-21 11:54] LABS: BASOPHILS # (AUTO) 0.1 (0.0-0.1); BASOPHILS % 0.5 % (0.0-1.0); EOSINOPHILS # (AUTO) 0.2 (0.0-0.4); EOSINOPHILS % 1.8 % (0.0-6.0); HEMATOCRIT 35.8 % (38.2-49.6); HEMOGLOBIN 12.1 g/dL (14.0-18.0); LYMPHOCYTES # (AUTO) 1.7 (1.0-3.2); LYMPHOCYTES % 12.3 % (18.0-39.1); MEAN CORPUSCULAR HEMOGLOBIN 28.4 pg (28-32); MEAN CORPUSCULAR HGB CONC 33.8 g/dL (31-35); MONOCYTES # (AUTO) 1.1 (0.2-0.8); MONOCYTES % 8.4 % (4.4-11.3); NEUTROPHILS # (AUTO) 10.1 (2.1-6.9); NEUTROPHILS % 75.4 % (38.7-80.0); PLATELET COUNT 425 x10e3/uL (140-360); RED BLOOD COUNT 4.26 x10e6/uL (4.3-5.7); RED CELL DISTRIBUTION WIDTH 18.5 % (11.7-14.4)
[2018-09-21 12:02] LABS: INR 2.18; PROTHROMBIN TIME 25.9 seconds (11.9-14.5)
[2018-09-21 12:04] LABS: PARTIAL THROMBOPLASTIN TIME 61.9 seconds (23.8-35.5)
[2018-09-21 12:05] LABS: CLARITY,URINE SL CLOUDY (CLEAR); COLOR,URINE ORANGE (YELLOW); LEUKOCYTE ESTERASE ,URINE NEGATIVE (NEGATIVE); NITRITE,URINE NEGATIVE (NEGATIVE); PROTEIN,URINE DIPSTICK NEGATIVE (NEGATIVE)
[2018-09-21 12:06] LABS: BILIRUBIN,URINE NEGATIVE (NEGATIVE); KETONES,URINE NEGATIVE (NEGATIVE); URINE UROBILINOGEN 0.2 mg/dL (0.2 - 1)
[2018-09-21 12:08] LABS: EPITHELIAL CELLS,URINE RARE /LPF
[2018-09-21 12:13] LABS: ALBUMIN/GLOBULIN RATIO 0.7 (0.8-2.0); ANION GAP 20.4 mmol/L (8-16); CALCIUM 10.6 mg/dL (8.4-10.2); CREATININE, SERUM 3.14 mg/dL (0.72-1.25)
[2018-09-21 12:33] LABS: CREATINE KINASE MB 1.5 ng/mL (0-5.0)
[2018-09-21 12:35] LABS: POTASSIUM 5.4 mmol/L (3.5-5.1)
--- NOTE | 2018-09-21 12:35 | NUR ---
PER LAB GLUCOSE 431, ABHAY Miller AND NATALIIA Louis AWARE
--- NOTE | 2018-09-21 12:42 | Diagnostic Imaging Report ---
EXAMINATION: CHEST SINGLE (PORTABLE) COMPARISON: Chest radiograph 07/30/2018. FINDINGS: TUBES and LINES: Left-sided pacemaker with lead in unchanged position. LUNGS: Low lung volumes. There is linear subsegmental atelectasis at the lung bases. Central vascular congestion without evidence of pulmonary edema. No evidence of lobar consolidation. PLEURA: No pleural effusion or pneumothorax. Unchanged moderate elevation of the right hemidiaphragm. HEART AND MEDIASTINUM: The cardiomediastinal silhouette is unchanged. Transcutaneous aortic valve replacement. Atherosclerotic calcifications of the aortic arch. BONES AND SOFT TISSUES: No acute osseous abnormality. Old right posterior fourth rib fracture. UPPER ABDOMEN: No free air under the diaphragm. IMPRESSION: Central vascular congestion without evidence of pulmonary edema. Low lung volumes with bibasilar atelectasis. Signed by: Dr. Angeles Manriquez MD on 09/21/2018 12:39 PM
[2018-09-21] MEDS ORDERED: DEXTROSE 50% SYRINGE 50 ML IV PRN (13:45)
[2018-09-21] MEDS ORDERED: ONDANSETRON HCL INJ 2 MG/ML VIAL IV PRN (13:45)
[2018-09-21] MEDS ORDERED: SODIUM CHLORIDE 0.9% 1000ML 1,000 ML IV ONE (13:45)
[2018-09-21] MEDS ORDERED: FERROUS SULFAT325 M1 PO (13:53)
[2018-09-21] MEDS ORDERED: PREDNISONE20 MG PO (13:53)
[2018-09-21] MEDS ORDERED: WARFARIN SODIUM1 MG PO (13:53)
[2018-09-21] MEDS ORDERED: LANTUS 3ML100 UNITS/ SC (13:53)
[2018-09-21] MEDS ORDERED: ULTRAM 50MG50 MG PO (13:53)
[2018-09-21] MEDS ORDERED: CLOPIDOGREL75 MG PO (13:53)
[2018-09-21] MEDS ORDERED: SPIRONOLACTONE25 MG PO (13:53)
[2018-09-21] MEDS ORDERED: ALLOPURINOL300 MG PO (13:53)
[2018-09-21] MEDS ORDERED: DOCUSATE SODIU100 MG PO (13:53)
[2018-09-21] MEDS ORDERED: ATORVASTATIN CA10 MG PO (13:53)
--- NOTE | 2018-09-21 13:55 | NUR ---
PATIENT OK TO TAKE HOME MEDICATIONS AT BEDSIDE PER NATALIIA DAMON NP.
--- NOTE | 2018-09-21 15:40 | NUR ---
Received report from Virginia VALDES (ER nurse). Nurse aware of K+ 5.3. States "No new orders. ER doctor aware"
--- NOTE | 2018-09-21 15:51 | NUR ---
Received patient via stretcher. AAOX3 to time, person,place. Respirations even and unlabored. Right AC 20G IV intact. Oriented patient to room. Instructed patient to use call light for assistance. Will continue to monitor.
[2018-09-21 16:00] VITALS: BP 150/63
[2018-09-21] MEDS: INSULIN LISPRO 100 UNIT/1 ML 3ML VIAL SQ SCH ×2 (16:00→21:25)
[2018-09-21 16:13] VITALS: BP 150/63
[2018-09-21 16:20] VITALS: BP 150/63
[2018-09-21] MEDS ORDERED: WARFARIN SODIUM3 MG PO (16:43)
[2018-09-21] MEDS ORDERED: LACTULOSE SYRUP 20 GM/30 ML UDC PO STA (17:28)
[2018-09-21] MEDS ORDERED: SOD POLYSTYRENE SULFONATE SUSP 15 GM/60 ML BTL PO STA (17:28)
--- NOTE | 2018-09-21 17:40 | NUR ---
aware of potassium levels. See orders
[2018-09-21] MEDS: WARFARIN SOD 2.5 MG TAB PO SCH (17:51)
[2018-09-21] MEDS: TRAMADOL HCL 50 MG TAB PO SCH (17:51)
[2018-09-21] MEDS: METOPROLOL SUCCINATE 50 MG TAB XL PO SCH (17:52)
[2018-09-21 18:37] LABS: CREATININE,URINE RANDOM 168.11 mg/dL (63-166); TOTAL PROTEIN, URINE 22.6 mg/dL (1-14)
[2018-09-21] MEDS: BUDESONIDE/FORMOTEROL 160/4.5MCG INHALER INH SCH (19:00)
[2018-09-21] MEDS: ALBUTEROL/IPRATROPIUM 3 ML NEB NEB SCH (19:00)
--- NOTE | 2018-09-21 19:00 | NUR ---
Report given to oncoming nurse of patient's status.
--- NOTE | 2018-09-21 19:21 | NUR ---
PT IS RESTING IN BED. NO RESPIRATORY DISTRESS NOTED, BED IN THE LOWEST POSITION, LOCKED, AND CALL LIGHT WITHIN REACH. WILL CONTINUE TO MONITOR.
[2018-09-21 20:00] VITALS: BP 138/65
[2018-09-21 20:44] LABS: CREATINE KINASE MB 2.2 ng/mL (0-5.0)
[2018-09-21] MEDS: FERROUS SULFATE 325 MG TAB PO SCH (21:09)
[2018-09-21] MEDS: PANTOPRAZOLE SOD 40 MG TABEC PO SCH (21:10)
[2018-09-21] MEDS: DOXYCYCLINE HYCLATE TABLET 100 MG TAB PO SCH (21:10)
[2018-09-21] MEDS: MONTELUKAST SODIUM 10 MG TAB PO SCH (21:10)
[2018-09-21] MEDS: ATORVASTATIN 10 MG TAB PO SCH (21:10)
--- NOTE | 2018-09-21 21:19 | Consultation ---
DATE OF CONSULTATION: PULMONARY CONSULTATION Patient of Dr. Peralta, Dr. Bowens, Dr. Tovar. HISTORY: Charming but unfortunate 83-year-old gentleman, admitted with urinary retention, having to urinate every 25 minutes. Prajapati catheter was placed, the residual is not charted. 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 ALLERGIES: ALLERGIC TO PENICILLIN. MEDICATIONS: Have included Lasix, , Amaryl, allopurinol, Lipitor, Plavix, Colace, iron, Lantus insulin, metoprolol, montelukast, Protonix, prednisone, Aldactone, tramadol, and warfarin. PAST SURGICAL HISTORY: He has had cholecystectomy in the past. PHYSICAL EXAMINATION: GENERAL: He is a well-developed white male, lost quite a bit of weight. He has a history of sleep apnea and uses his own CPAP. VITAL SIGNS: Temperature 97.1, pulse 70, respirations 18, blood pressure 150/81. HEENT: Head normocephalic, atraumatic. NECK: Trachea midline. LUNGS: Wheezing. HEART: Regular rhythm. ABDOMEN: Nontender. EXTREMITIES: Not edematous. IMPRESSION: 1. Bronchial asthma. 2. Vague right lower lobe infiltrate. 3. Possible urinary retention. PLAN: Bronchodilators, CPAP. Consider empiric antibiotic therapy. Thank you for this kind referral. Job#: [id number]
[2018-09-21 23:23] VITALS: BP 138/65
[2018-09-22] VITALS (7 sets, daily range): BP systolic 120–134; BP diastolic 58–65
[2018-09-22] MEDS: TRAMADOL HCL 50 MG TAB PO SCH ×6 (00:20→23:56)
[2018-09-22] MEDS: ALBUTEROL/IPRATROPIUM 3 ML NEB NEB SCH ×4 (01:00→19:00)
[2018-09-22 06:01] LABS: BASOPHILS # (AUTO) 0.1 (0.0-0.1); BASOPHILS % 0.6 % (0.0-1.0); EOSINOPHILS # (AUTO) 0.3 (0.0-0.4); EOSINOPHILS % 2.7 % (0.0-6.0); HEMOGLOBIN 11.1 g/dL (14.0-18.0); LYMPHOCYTES # (AUTO) 1.8 (1.0-3.2); LYMPHOCYTES % 15.1 % (18.0-39.1); MEAN CORPUSCULAR HEMOGLOBIN 28.2 pg (28-32); MEAN CORPUSCULAR HGB CONC 33.6 g/dL (31-35); MEAN CORPUSCULAR VOLUME 83.8 fL (81-99); NEUTROPHILS # (AUTO) 8.7 (2.1-6.9); NEUTROPHILS % 72.4 % (38.7-80.0); PLATELET COUNT 392 x10e3/uL (140-360); RED BLOOD COUNT 3.94 x10e6/uL (4.3-5.7); RED CELL DISTRIBUTION WIDTH 18.6 % (11.7-14.4)
[2018-09-22 06:27] LABS: ALBUMIN 2.7 g/dL (3.5-5.0); ALBUMIN/GLOBULIN RATIO 0.7 (0.8-2.0); ANION GAP 15.1 mmol/L (8-16); CALCIUM 9.7 mg/dL (8.4-10.2); CREATININE, SERUM 2.33 mg/dL (0.72-1.25); POTASSIUM 4.1 mmol/L (3.5-5.1)
[2018-09-22] MEDS: BUDESONIDE/FORMOTEROL 160/4.5MCG INHALER INH SCH (07:00)
[2018-09-22] MEDS ORDERED: PREDNISONE 20 MG TAB PO SCH ×2 (09:00)
[2018-09-22] MEDS ORDERED: WARFARIN SOD 1 MG TAB PO SCH (09:00)
[2018-09-22] MEDS ORDERED: SPIRONOLACTONE 25 MG TAB PO SCH (09:00)
[2018-09-22] MEDS: INSULIN LISPRO 100 UNIT/1 ML 3ML VIAL SQ SCH ×4 (09:15→21:03)
[2018-09-22] MEDS: PREDNISONE 10 MG TAB PO SCH (09:15)
[2018-09-22] MEDS: FERROUS SULFATE 325 MG TAB PO SCH ×3 (09:15→21:02)
[2018-09-22] MEDS: ALLOPURINOL 300 MG TAB PO SCH (09:15)
[2018-09-22] MEDS: INSULIN DETEMIR 100 UNIT/ML PEN SQ SCH (09:15)
[2018-09-22] MEDS: DOXYCYCLINE HYCLATE TABLET 100 MG TAB PO SCH ×2 (09:15→21:02)
[2018-09-22] MEDS: CLOPIDOGREL BISULFATE 75 MG TAB PO SCH (09:15)
[2018-09-22] MEDS: DOCUSATE SODIUM 100 MG CAP PO SCH (09:15)
--- NOTE | 2018-09-22 10:30 | NUR ---
NATHAN NOTED NOT DRAINING WELL, FLUSHED WITH 10ML OF NORMAL SALINE, STARTED FLOWING WELL AND PATENT. BLADDER SCAN DONE TO CHECK IF URINE IS RETAINED, 21ML NOTED. PT DENIES ANY PAIN OR DISCOMFORT.
--- NOTE | 2018-09-22 13:48 | Consultation ---
DATE OF CONSULTATION: September 22, 2018 Most of the history is obtained per chart and the patient's caregiver. Patient very poor historian. This is an 83-year-old gentleman who currently was admitted with apparent urinary retention. Has had urinary issues in the past as far as emptying his bladder. His caregiver mentions that they were trying in and out catheters. There is a history of abnormal kidney function, but he has never seen a kidney doctor as an outpatient. His baseline creatinine appears to be 1.8. He has had recent hemicolectomy. He has got coronary artery disease, pacemaker. He has got a transcatheter, aortic valve replacement done. Renal has been consulted for management of acute kidney injury. Patient is laying supine. Denies any nausea, vomiting or abdominal pain. Feels weak and tired. He has a Prajapati catheter. He is now voiding urine through the catheter. CURRENT MEDICATIONS 1. Albuterol and Atrovent nebulizer. 2. Atorvastatin. 3. He is on Symbicort. 4. Plavix 75 mg daily. 5. He is on Colace. 6. He is on doxycycline 100 mg q.12 h. p.o. 7. Ferrous sulfate. 8. Insulin. 9. Metoprolol 50 p.o. b.i.d. 10. He is on ondansetron p.o. 11. Prednisone 10 mg daily. 12. He is on spironolactone 50 mg p.o. b.i.d., which has been stopped. ALLERGIES: PENICILLIN. SOCIAL HISTORY: Patient does not smoke or drink. He lives at home. He has a caregiver. His daughter has some medical background, who helps out. PHYSICAL EXAMINATION GENERAL: Awake, alert and laying supine. No apparent distress. VITALS: Blood pressure 130/60, pulse rate 70, afebrile. HEAD AND NECK: Cornea clear. Mucosa moist. LUNGS: Relatively clear. No evidence of any rales or rhonchi. HEART: S1 and S2 audible. A loud S2. Soft 2-3/6 ejection systolic murmur heard over the left sternal border. ABDOMEN: Distended, soft and nontender. No palpable visceromegaly. LOWER EXTREMITY EXAMINATION: Shows no edema. IMPRESSION 1. [id number] kidney failure: Baseline creatinine now 2.33 with a potassium of 4.1, sodium 127. His medications have been reviewed. Agree with stopping Aldactone. Multiple comorbidities including type 2 diabetes with possible diabetic kidney disease and chronic kidney disease. Urine cultures have been performed. There is a possibility he may have a urinary tract infection. 2. Hyponatremic, multifactorial: Plan on gentle intravenous hydration. Monitor intake and output. Obtain kidney ultrasound. Renal workup ordered. Discussed with caregiver. All questions answered. Job#: [id number] SHERI
[2018-09-22] MEDS: SODIUM CHLORIDE 0.9% 1000ML 1,000 ML IV SCH (14:00)
[2018-09-22] MEDS: DIPHENHYDRAMINE HCL 25 MG CAP PO PRN (14:01)
--- NOTE | 2018-09-22 15:28 | NUR ---
CASE MANAGEMENT INITIAL ASSESSMENT Diesel Engineer to bedside to discuss plan of care with patient/family. CM/SW role and care transitions discussed. Anticipated discharge plan discussed along with duration of care. CM/SW discussed patients right to make decisions in care. CM/SW work hours given. Patient lives: WITH FRIEND, ROSAURA IN A 1 STORY HOME Admit/Transfer: TO THE ER W C/O DIFFICULTY VOIDING POA/Emergency contact: ROSAURA @ [phone] Current/Previous Home Health: NONE PCP/Follow-up Care: DR. BROWNLEE Current/Previous DME: WALKER, NEBULIZER, CPAP, [place] Other Services: NONE Employment Status: RETIRED Areas of Concerns: DISPOSITION; HOME VS REHAB/SNF Referral Needs: NONE Education Needs: NONE IMM/GRIGSBY given and signed (if applicable): GIVEN 09/21/18 WHEN ADMITTED Goal for discharge: GET BACK ON HIS FEET AND RETURN HOME ABLE TO CARE FOR SELF. CM/SW left business card at the bedside with contact information. Name and number was also written on the patients whiteboard. Patient verbalized understanding of discussion. CM will follow-up with ongoing discharge and transition of care needs.
--- NOTE | 2018-09-22 16:34 | Diagnostic Imaging Report ---
EXAM: Renal Ultrasound INDICATION: ^renal failure COMPARISON: CT dated 07/23/2018 TECHNIQUE: Transverse and longitudinal images of the kidneys and bladder were obtained. FINDINGS: Right Kidney: Size: 11 cm Echogenicity: Normal Parenchymal thickness: Normal Collecting system: No hydronephrosis Stones: None Cyst/Mass: None Left Kidney: Size: 12.4 cm Echogenicity: Normal Parenchymal thickness: Normal Collecting system: No hydronephrosis Stones: None Cyst/Mass: None Bladder: Decompressed by a Prajapati catheter in place. IMPRESSION: Unremarkable renal ultrasound exam. Signed by: Dr. Dinesh Montoya MD on 09/22/2018 4:30 PM
[2018-09-22] MEDS: WARFARIN SOD 2.5 MG TAB PO SCH (17:09)
[2018-09-22] MEDS: METOPROLOL SUCCINATE 50 MG TAB XL PO SCH (17:09)
--- NOTE | 2018-09-22 17:51 | NUR ---
PT IN BED CONTINUE WITH IV FLUIDS , NATHAN PATENT, NATHAN CARE DONE, DENIES PAIN AT MOMENT NO S/S OF DISTRESS NOTED
[2018-09-22] MEDS: MONTELUKAST SODIUM 10 MG TAB PO SCH (21:02)
[2018-09-22] MEDS: PANTOPRAZOLE SOD 40 MG TABEC PO SCH (21:02)
[2018-09-22] MEDS: ATORVASTATIN 10 MG TAB PO SCH (21:02)
[2018-09-23] VITALS: BP 133/72
[2018-09-23] MEDS: SODIUM CHLORIDE 0.9% 1000ML 1,000 ML IV SCH ×2 (02:50→17:40)
[2018-09-23] MEDS: TRAMADOL HCL 50 MG TAB PO SCH ×3 (05:33→16:02)
[2018-09-23] MEDS: DIPHENHYDRAMINE HCL 25 MG CAP PO PRN (05:33)
--- NOTE | 2018-09-23 05:33 | NUR ---
Earlier during the shift around 2100 on 09/22/18, Mr. Castañeda's daughter called worried about the patient's mental status. She stated her dad was calling her frequently and sounded confused. He told the daughter no one would help him put on his CPAP machine on. I reassured the daughter that I had already helped the patient and that Respiratory had already adjusted the machine for him, but I would go assist him if he needed help again. After the call, I went to check on patient and his mask had fallen off, so I put it back on him. Patient had been AAOx2-3 for my shift, and had frequent negative comments about self, and being in the hospital. I instructed him several times to use the call jordan, but he did not use it all night. Later on around 2300 the daughter showed up because he had asked the daughter to bring a filter for his CPAP machine because he did not have one. I went in the room with the daughter and the patient was upset screaming at her and another person she brought. There was no need for filter. Before the daughter left, she spoke to me outside the room and stated her dad tends to be really demanding, and she hoped to speak with DR. Peralta about plan of care because she wanted a sedative added to his medication regimen, wanted to know why he was taken off diuretics. Patient slept well through out the night, woke up a few times but went back to sleep. At around 5am I found a small amount of dried blood on patients left arm, bed, and side rail. Patient had scratched up the left side of the elbow. I cleaned it up and applied gauze to cover it. I asked him if he was itching and he said "no, I don't know how this happened". At around 0530 Dr. Peralta went to asses the patient and the patient stated he had been itching all night. The patient had not reported any itchiness before. I gave the patient his PRN Benadryl and will go assess him again to see if it has decrease the itchiness.
[2018-09-23 05:51] LABS: ALANINE AMINOTRANSFERASE < 6 IU/L (0-55); ALBUMIN 2.7 g/dL (3.5-5.0); ALBUMIN/GLOBULIN RATIO 0.7 (0.8-2.0); ALKALINE PHOSPHATASE 77 IU/L (40-150); ANION GAP 16.6 mmol/L (8-16); BLOOD UREA NITROGEN 58 mg/dL (7-26); BUN/CREATININE RATIO 31 (6-25); CALCIUM 9.7 mg/dL (8.4-10.2); CARBON DIOXIDE 27 mmol/L (22-29); CHLORIDE 92 mmol/L (98-107); CREATININE, SERUM 1.87 mg/dL (0.72-1.25); EST GLOMERULAR FILTRATION RATE 35 ML/MIN (60-); GLUCOSE 90 mg/dL (74-118); POTASSIUM 3.6 mmol/L (3.5-5.1); SODIUM 132 mmol/L (136-145)
[2018-09-23] MEDS: INSULIN LISPRO 100 UNIT/1 ML 3ML VIAL SQ SCH ×4 (07:30→21:26)
[2018-09-23 08:00] VITALS: BP 127/56
[2018-09-23 08:10] VITALS: BP 127/56
[2018-09-23] MEDS: INSULIN DETEMIR 100 UNIT/ML PEN SQ SCH (08:35)
[2018-09-23] MEDS: CLOPIDOGREL BISULFATE 75 MG TAB PO SCH (08:45)
[2018-09-23] MEDS: DOXYCYCLINE HYCLATE TABLET 100 MG TAB PO SCH ×2 (08:45→21:25)
[2018-09-23] MEDS: FERROUS SULFATE 325 MG TAB PO SCH ×3 (08:45→21:24)
[2018-09-23] MEDS: PREDNISONE 10 MG TAB PO SCH (08:45)
[2018-09-23] MEDS: METOPROLOL SUCCINATE 50 MG TAB XL PO SCH ×2 (08:45→16:02)
[2018-09-23] MEDS: DOCUSATE SODIUM 100 MG CAP PO SCH (08:45)
[2018-09-23] MEDS: ALLOPURINOL 300 MG TAB PO SCH (08:45)
[2018-09-23 12:00] VITALS: BP 111/52
[2018-09-23] MEDS: ALBUTEROL/IPRATROPIUM 3 ML NEB NEB SCH ×2 (13:00→20:00)
--- NOTE | 2018-09-23 13:52 | NUR ---
Attempted to visit pt twice today. However, pt was sleeping and with C PAP on. Will revisit when it is appropriate. Spoke with KEISHA Ruff to call wound care as wound care consult was entered on 09/21 but no wound care notes found.
[2018-09-23 16:00] VITALS: BP 115/55
[2018-09-23] MEDS: WARFARIN SOD 2.5 MG TAB PO SCH (16:02)
--- NOTE | 2018-09-23 17:05 | NUR ---
WOUND CARE CONSULTATION: THIS IS AN 83 YEAR OLD MALE PATIENT ADMITTED TO [facility] FOR DEHYDRATION, HYPERGLYCEMIA, HYPONATREMIA, AND RENAL FAILURE. HEAD TO TOE SKIN ASSESSMENT PERFORMED. PATIENT HAS A STAGE 2 PRESSURE ULCER TO THE SACRAL CREASE MEASURING, 1X0.3X0.1CM, 100% PINK GRANULATION NOTED TO WOUND BED. PATIENT HAS A LEFT ELBOW SKIN TEAR MEASURING, 1.5X1X0.2CM; STERI STRIPS WERE APPLIED AND COVERED WITH 4X4 GAUZE AND TEGADERM AFTER CLEANING THE SKIN TEAR WITH NORMAL SALINE. LABS: WBC12.05 ALB2.7 URINE CULTURE NEGATIVE. MEDICATIONS: DOXYCYCLINE RECOMMENDATION: -CONTINUE ALTERNATING PRESSURE RELIEF MATTRESS. -CONTINUE BILATERAL HEEL PROTECTORS WITH PILLOW SUSPENSION. -TURN EVERY 2 HOURS AND PRN. -NURSING TO CHANGE LEFT ELBOW SKIN TEAR DRESSING ONCE A WEEK; APPLY STERI STRIPS, 4X4 GAUZE, AND TEGADERM. CHANGE DRESSING WEEKLY AND PRN. -NURSING TO APPLY VENELEX THEN ALLEVYN FOAM DRESSING TO STAGE 2 PRESSURE ULCER; CHANGE DAILY AND PRN. THANK YOU FOR THIS WOUND CARE CONSULTATION. Addendum: 09/23/18 at 1717 by Caron Ramirez RN Amended: Links added.
--- NOTE | 2018-09-23 18:23 | NUR ---
PT IN BED, NO S/S OF DISTRESS NOTED. CONTINUE WITH IV FLUIDS AND PO ANTIBIOTICS.
[2018-09-23 20:00] VITALS: BP 129/65
--- NOTE | 2018-09-23 20:19 | NUR ---
RECEIVE DPT IN BED ALERT .RESPIRATIONS ARE EVEN AND UNLABORED .DENIES PAIN STAGE 2 AT SACRUM .PT HAS F/C DRAINING CLEAR YELLOW URINE RT AC 20 G NS AT 75 ML/HR CALL LIGHT WITH IN REACH .CONTINUE TO MONITOR
[2018-09-23] MEDS: ATORVASTATIN 10 MG TAB PO SCH (21:24)
[2018-09-23] MEDS: MONTELUKAST SODIUM 10 MG TAB PO SCH (21:25)
[2018-09-23] MEDS: PANTOPRAZOLE SOD 40 MG TABEC PO SCH (21:25)
[2018-09-24] VITALS: BP_SYST 135; BP_SYST 138; BP_DIAS 60; BP_DIAS 67
[2018-09-24] MEDS: TRAMADOL HCL 50 MG TAB PO SCH ×4 (00:20→17:55)
[2018-09-24] MEDS: ALBUTEROL/IPRATROPIUM 3 ML NEB NEB SCH ×4 (01:15→19:32)
[2018-09-24 02:44] VITALS: BP 135/60
[2018-09-24] MEDS: SODIUM CHLORIDE 0.9% 1000ML 1,000 ML IV SCH ×2 (06:23→18:34)
--- NOTE | 2018-09-24 06:26 | NUR ---
PT RESTED DURING THE NIGHT .GIVEN ORDERED PAIN MEDICATION .PT PULLED THE CPAP AND FELL ON THE FLOOR .NOT WORKING .NOTIFIED RESPIRATORY DO NOT FIX THE PATIENTS' CPAP .CALL LIGHT WITH IN REACH .CONTINUE TO MONITOR
--- NOTE | 2018-09-24 07:11 | NUR ---
REPORT GIVEN TO THE ONCOMING NURSE.
[2018-09-24] MEDS: BUDESONIDE/FORMOTEROL 160/4.5MCG INHALER INH SCH ×2 (07:26→19:32)
[2018-09-24] MEDS: INSULIN LISPRO 100 UNIT/1 ML 3ML VIAL SQ SCH ×4 (07:52→22:09)
[2018-09-24 08:00] VITALS: BP 124/59
[2018-09-24] MEDS: PREDNISONE 10 MG TAB PO SCH (08:32)
[2018-09-24] MEDS: CLOPIDOGREL BISULFATE 75 MG TAB PO SCH (08:32)
[2018-09-24] MEDS: DOXYCYCLINE HYCLATE TABLET 100 MG TAB PO SCH ×2 (08:32→21:00)
[2018-09-24] MEDS: ALLOPURINOL 300 MG TAB PO SCH (08:32)
[2018-09-24] MEDS: DOCUSATE SODIUM 100 MG CAP PO SCH (08:32)
[2018-09-24] MEDS: FERROUS SULFATE 325 MG TAB PO SCH ×3 (08:32→21:00)
[2018-09-24] MEDS: METOPROLOL SUCCINATE 50 MG TAB XL PO SCH ×2 (08:32→16:20)
[2018-09-24] MEDS: INSULIN DETEMIR 100 UNIT/ML PEN SQ SCH (08:35)
--- NOTE | 2018-09-24 10:35 | NUR ---
Patient refused to put SCDs on.
[2018-09-24] MEDS: BALSAM PERU/CASTOR OIL 5 GM OINT...G. TP SCH (11:05)
--- NOTE | 2018-09-24 11:14 | Progress Note ---
DATE: SUBJECTIVE: Patient is here for acute kidney injury and currently being seen by Dr. Bowens. Patient also has a history of congestive heart failure, hypertension, diabetes, gout, and DVT. Patient is weak at this time. No other complaints. He was using his CPAP machine, but broke. He is on O2 support. PHYSICAL EXAMINATION VITAL SIGNS: Temperature is 96.0, pulse of 71, respirations of 24, blood pressure is 124/59, pulse of 98% on 2 liters of oxygen. HEENT: Normocephalic and atraumatic. Pupils are reactive to light and accommodation. NECK: Supple. No JVD present. CHEST: Clear to auscultation bilaterally. ABDOMEN: Nontender, nondistended. EXTREMITIES: 1+ edema in bilateral lower extremities. SKIN: Within normal limit. LABORATORY VALUES: Last hemoglobin is 11.1, hematocrit of 33. Chemistries; BUN is 58, creatinine is 1.87 and last was 62 and 2.33. Coags are normal. INR is 2.18, on warfarin. MEDICATIONS: Budesonide inhalers, albuterol and Atrovent treatment, tramadol as needed, doxycycline q.12 hours, pantoprazole 40 mg q.d., atorvastatin 10 mg, metoprolol 50 mg twice a day, prednisone 10 mg daily, clopidogrel 75 mg daily, allopurinol 300 mg, insulin 30 units at nighttime, and warfarin 10 mg. ASSESSMENT AND PLAN 1. Acute and chronic renal failure. Continue monitoring the patient's ins and outs and also gentle hydration. Patient's creatinine is improving. 2. History of congestive heart failure. Again gentle diuresis and replacement. 3. Gastrointestinal prophylaxis. Continue pantoprazole. 4. History of deep venous thrombosis. Monitor INR daily. INR is therapeutic and now within range. 5. Weakness, needs therapy. 6. Sleep apnea. Continue with O2 support and BiPAP as needed. Further recommendations per clinical course. Will continue to monitor the patient along with the consultants. Check his creatinine levels in the morning and also CBC. Patient does have anemia of chronic disease. We will continue monitoring this too. Job#: [id number] RICARDO
[2018-09-24 12:00] VITALS: BP 114/58
[2018-09-24 16:00] VITALS: BP 126/59
[2018-09-24] MEDS ORDERED: WARFARIN SOD 5 MG TAB PO SCH (17:00)
[2018-09-24] MEDS ORDERED: WARFARIN SOD 3 MG TAB PO SCH (17:15)
[2018-09-24 20:00] VITALS: BP 147/70
[2018-09-24] MEDS: PANTOPRAZOLE SOD 40 MG TABEC PO SCH (21:00)
[2018-09-24] MEDS: ATORVASTATIN 10 MG TAB PO SCH (21:00)
[2018-09-24] MEDS: MONTELUKAST SODIUM 10 MG TAB PO SCH (21:00)
[2018-09-24] MEDS ORDERED: INSULIN LISPRO 100 UNIT/1 ML 3ML VIAL SQ ONE (22:15)
--- NOTE | 2018-09-24 22:15 | NUR ---
Patient laying in bed with HOB slightly elevated. AAO x 4. Patient reports of pain 0/10. No SOB noted. No acute distress noted. Bed at low position and locked. Call light within reach, reminded patient to utilize when assistance is needed, patient voiced understanding. Patient in stable condition and will continue to monitor.
[2018-09-25] VITALS (7 sets, daily range): BP systolic 124–185; BP diastolic 59–80
[2018-09-25] MEDS: TRAMADOL HCL 50 MG TAB PO SCH ×4 (01:02→17:52)
[2018-09-25] MEDS: ALBUTEROL/IPRATROPIUM 3 ML NEB NEB SCH ×4 (02:58→19:35)
[2018-09-25 06:47] LABS: BASOPHILS # (AUTO) 0.1 (0.0-0.1); BASOPHILS % 0.6 % (0.0-1.0); EOSINOPHILS # (AUTO) 0.4 (0.0-0.4); EOSINOPHILS % 3.6 % (0.0-6.0); HEMATOCRIT 31.3 % (38.2-49.6); HEMOGLOBIN 10.3 g/dL (14.0-18.0); LYMPHOCYTES % 20.7 % (18.0-39.1); MEAN CORPUSCULAR HEMOGLOBIN 28.9 pg (28-32); MEAN CORPUSCULAR HGB CONC 32.9 g/dL (31-35); MEAN CORPUSCULAR VOLUME 87.7 fL (81-99); MONOCYTES # (AUTO) 0.8 (0.2-0.8); MONOCYTES % 8.3 % (4.4-11.3); NEUTROPHILS # (AUTO) 6.3 (2.1-6.9); NEUTROPHILS % 64.4 % (38.7-80.0); PLATELET COUNT 409 x10e3/uL (140-360); RED BLOOD COUNT 3.57 x10e6/uL (4.3-5.7); RED CELL DISTRIBUTION WIDTH 18.9 % (11.7-14.4)
[2018-09-25 07:09] LABS: ANION GAP 13.5 mmol/L (8-16); CALCIUM 9.3 mg/dL (8.4-10.2); CREATININE, SERUM 1.27 mg/dL (0.72-1.25); POTASSIUM 4.5 mmol/L (3.5-5.1)
[2018-09-25] MEDS: BUDESONIDE/FORMOTEROL 160/4.5MCG INHALER INH SCH ×2 (07:16→19:35)
[2018-09-25] MEDS: INSULIN LISPRO 100 UNIT/1 ML 3ML VIAL SQ SCH ×4 (07:38→21:00)
[2018-09-25] MEDS: SODIUM CHLORIDE 0.9% 1000ML 1,000 ML IV SCH (08:05)
[2018-09-25] MEDS: ALLOPURINOL 300 MG TAB PO SCH (08:43)
[2018-09-25] MEDS: CLOPIDOGREL BISULFATE 75 MG TAB PO SCH (08:43)
[2018-09-25] MEDS: METOPROLOL SUCCINATE 50 MG TAB XL PO SCH ×2 (08:43→16:52)
[2018-09-25] MEDS: DOCUSATE SODIUM 100 MG CAP PO SCH (08:43)
[2018-09-25] MEDS: FERROUS SULFATE 325 MG TAB PO SCH ×3 (08:43→20:52)
[2018-09-25] MEDS: PREDNISONE 10 MG TAB PO SCH (08:43)
[2018-09-25] MEDS: DOXYCYCLINE HYCLATE TABLET 100 MG TAB PO SCH ×2 (08:43→20:52)
[2018-09-25] MEDS: INSULIN DETEMIR 100 UNIT/ML PEN SQ SCH (08:44)
--- NOTE | 2018-09-25 10:03 | Progress Note ---
DATE: SUBJECTIVE: Patient is here for acute kidney injury, congestive heart failure, hypertension, diabetes, gout, and DVT. Patient is doing well, more coherent today. Used CPAP yesterday for sleep apnea. PHYSICAL EXAMINATION VITAL SIGNS: Temperature is 96, pulse is 72, respirations of 20, blood pressure is 130/67, pulse oximetry 95% on 2 liters of nasal cannula. GENERAL: Patient is alert and oriented x3. HEENT: Normocephalic, atraumatic. Patient has nasal cannula support. CVS: S1, S2 normal. Regular rate and rhythm. NECK: No JVD present. ABDOMEN: Nontender, nondistended. EXTREMITIES: 1+ edema. SKIN: Within normal limits. LABORATORY VALUES: Today, his hemoglobin is 10.3, hematocrit of 31.3, platelet count is 409. Chemistries; sodium of 134, BUN of 33, creatinine of 1.27 with GFR of 54, which is improved. Patient's glucose running in the 140s to 300s. MEDICATIONS: No changes. Patient is on 30 units of insulin and 7.5 mg of warfarin. ASSESSMENT AND PLAN 1. Qmdsi-lf-fcauniv renal failure. Continue monitoring the patient's electrolytes and BUN and creatinine. 2. Congestive heart failure. Gentle diuresis. 3. Weakness, needs therapy. 4. Sleep apnea. Continue with O2 support and CPAP support. 5. Deep venous thrombosis. Monitor INR and continue with warfarin therapy. 6. Patient also is getting albuterol and Atrovent treatment for his shortness of breath. We will increase the insulin to 40 units at nighttime today and continue monitoring his blood sugars for his diabetes. For further information, look in the chart. Job#: [id number]
[2018-09-25 10:15] LABS: BAND NEUTROPHILS % (MANUAL) 1 %; EOSINOPHILS % (MANUAL) 5 % (0-7); LYMPHOCYTES % (MANUAL) 16 % (19-48); MONOCYTES % (MANUAL) 8 % (3.4-9.0); NEUTROPHILS % (MANUAL) 70 % (40-74); PLATELET ESTIMATE ADEQUATE; PLATELET MORPHOLOGY COMMENT NORMAL; RBC MORPHOLOGY COMMENT NORMAL
[2018-09-25] MEDS: BALSAM PERU/CASTOR OIL 5 GM OINT...G. TP SCH (11:20)
--- NOTE | 2018-09-25 16:20 | NUR ---
patient resting in bed, Alert with no distress, Dressing changed on sacral area, family at bed side
[2018-09-25] MEDS: WARFARIN SOD 2.5 MG TAB PO SCH (16:52)
--- NOTE | 2018-09-25 19:37 | NUR ---
RECEIVED PT IN BED AOX2 .DENIES PAIN STAGE 2 SACRUM.NO CUTE DISTRESS NOTED .CPAP NOTED CALL LIGHT WITH IN REACH .CONTINUE NTO MONITOR
[2018-09-25] MEDS: ATORVASTATIN 10 MG TAB PO SCH (20:52)
[2018-09-25] MEDS: PANTOPRAZOLE SOD 40 MG TABEC PO SCH (20:52)
[2018-09-25] MEDS: MONTELUKAST SODIUM 10 MG TAB PO SCH (20:52)
[2018-09-26] VITALS (7 sets, daily range): BP systolic 126–180; BP diastolic 60–83
[2018-09-26] MEDS: ALBUTEROL/IPRATROPIUM 3 ML NEB NEB SCH ×4 (01:07→19:50)
[2018-09-26] MEDS: SODIUM CHLORIDE 0.9% 1000ML 1,000 ML IV SCH ×2 (01:21→14:10)
--- NOTE | 2018-09-26 05:43 | NUR ---
PT RESTING .NO ACUTE DISTRESS NOTED CALL LIGHT WITH IN REACH .CONTINUE TO MONITOR
[2018-09-26] MEDS: TRAMADOL HCL 50 MG TAB PO SCH ×4 (06:00→17:58)
--- NOTE | 2018-09-26 07:25 | NUR ---
PATIENT IN BED RESTING WITH EYES CLOSED, CPAP IN PLACE, NO RESPIRATORY DISTRESS OBSERVED. NATHAN CATHETER WITH CLEAR YELLOW URINE. BED IN LOWER POSITION, CALL LIGHT AT REACH.
[2018-09-26] MEDS: INSULIN LISPRO 100 UNIT/1 ML 3ML VIAL SQ SCH ×4 (07:30→22:16)
--- NOTE | 2018-09-26 07:30 | NUR ---
REPORT GIVEN TO THE ON COMING NURSE
[2018-09-26] MEDS: BUDESONIDE/FORMOTEROL 160/4.5MCG INHALER INH SCH ×2 (07:35→19:50)
[2018-09-26] MEDS: INSULIN DETEMIR 100 UNIT/ML PEN SQ SCH (09:00)
[2018-09-26] MEDS: FERROUS SULFATE 325 MG TAB PO SCH ×3 (09:34→21:48)
[2018-09-26] MEDS: DOCUSATE SODIUM 100 MG CAP PO SCH (09:34)
[2018-09-26] MEDS: DOXYCYCLINE HYCLATE TABLET 100 MG TAB PO SCH ×2 (09:35→21:49)
[2018-09-26] MEDS: CLOPIDOGREL BISULFATE 75 MG TAB PO SCH (09:35)
[2018-09-26] MEDS: BALSAM PERU/CASTOR OIL 5 GM OINT...G. TP SCH (09:35)
[2018-09-26] MEDS: METOPROLOL SUCCINATE 50 MG TAB XL PO SCH ×2 (09:35→17:58)
[2018-09-26] MEDS: ALLOPURINOL 300 MG TAB PO SCH (09:35)
[2018-09-26] MEDS: PREDNISONE 10 MG TAB PO SCH (09:35)
[2018-09-26] MEDS ORDERED: DIPHENHYDRAMINE HCL 25 MG CAP PO PRN (11:15)
--- NOTE | 2018-09-26 11:18 | NUR ---
PATIENT C/O MD ORQUIDEA NOTIFIED, NEW ORDER RECEIVED AND IMPLEMENTED. WILL CONTINUE TO MONITOR.
--- NOTE | 2018-09-26 15:41 | NUR ---
PATIENT AMBULATED WITH PHYSICAL THERAPY IN TREVER, NO RESPIRATORY DISTRESS OBSERVED. IN BED WITH CALL LIGHT AT REACH.
--- NOTE | 2018-09-26 16:08 | NUR ---
DAUGHTER CALLED AND REQUESTED A MEETING FOR DISCHARGE PLANNING FOR A FAMILY CONFERENCE AT 3 PM TOMORROW 09/27/2018
--- NOTE | 2018-09-26 16:29 | NUR ---
TREATMENT DONE TO LEFT ELBOW SKIN TEAR ORDERED.
[2018-09-26 17:10] LABS: INR 1.27
[2018-09-26] MEDS: WARFARIN SOD 2.5 MG TAB PO SCH (17:57)
--- NOTE | 2018-09-26 18:38 | NUR ---
Nutrition Screen Note RD Recommendation for Physician: -Rec ADA diet as medically appropriate - Consider MVi w/ minerals and vitamin C to support wound healing - Draw BMP and phosphorus daily to determine the needs for renal diet Plan of Care: RD following, monitoring for tolerance and adequacy Nutrition reason for involvement: Stage II pressure wound Primary Diagnose(s): 1.Vpiwa-ls-gtppcgn renal failure. 2.Congestive heart failure. Gentle diuresis. 3.Weakness. 4.Sleep apnea with O2 support and CPAP support. 5.Deep venous thrombosis. PMH: Hypertension, hyperlipidemia, coronary artery disease, asthma, obstructive sleep apnea. Ht: 70in Wt: 238lb BMI: 34.1kg/m2 IBW: 166lb RD Assessment: (09/26) Chart reviewed. Meds and labs reviewed. 83yo M who is admitted for urinary retention. Currently on Coumadin, insulin, feosol, IVF and Prednisone. BG has been running between 200-300, possibly due to meds. Visited pt in the room. Pt reports good appetite with 100% PO intake. No GI complains noted at this time. Pt denies any change in appetite or PO intake CUT OFF SAW TENDER METAL. LBM -09/26, normal per pt. No chewing or swallowing difficulty at this time. No recent weight loss reported. Per wound care notes, pt has stage 2 pressure ulcer to the sacrum. Communicated RD recommendation to KEISHA Shea. Will continue to monitor and follow. Current Diet: renal diet Malnutrition Evaluation (09/26) The patient does not meet criteria for a specified degree of malnutrition at this time. Will re-evaluate at follow-up as appropriate. Diet Education Needs Assessment: Diet education not indicated. Nutrition Care Level: low Signed: Leyla Aguirre, MS, RD, LD
--- NOTE | 2018-09-26 19:35 | NUR ---
RECEIVED PT IN BED SLEEPING .NO ACUTE DISTRESS NOTED ..PT HAS CPAP .CALL LIGHT WITH IN REACH .CONTINUE TO MONITOR STAGE AT SACRUM.
[2018-09-26] MEDS: ATORVASTATIN 10 MG TAB PO SCH (21:48)
[2018-09-26] MEDS: MONTELUKAST SODIUM 10 MG TAB PO SCH (21:48)
[2018-09-26] MEDS: PANTOPRAZOLE SOD 40 MG TABEC PO SCH (21:50)
[2018-09-27] VITALS (8 sets, daily range): BP systolic 128–165; BP diastolic 61–79
[2018-09-27] MEDS: ALBUTEROL/IPRATROPIUM 3 ML NEB NEB SCH ×4 (01:02→19:40)
[2018-09-27] MEDS: SODIUM CHLORIDE 0.9% 1000ML 1,000 ML IV SCH (04:42)
[2018-09-27] MEDS ORDERED: METHYLPREDNISOLONE SOD SUCC 40 MG/ML VIAL IV ONE (05:45)
[2018-09-27] MEDS: TRAMADOL HCL 50 MG TAB PO SCH ×4 (05:56→18:00)
--- NOTE | 2018-09-27 06:21 | NUR ---
NO ACUTE DISTRESS NOTED CALL LIGHT WITH IN REACH .CONTINUE TO MONITOR
--- NOTE | 2018-09-27 07:07 | NUR ---
REPORT GIVEN TO THE ONCOMING NURSE.
--- NOTE | 2018-09-27 07:16 | NUR ---
PATIENT IN BED RESTING WITH CPAP ON, NO RESPIRATORY DISTRESS OBSERVED. BED IN LOWER POSITION, CALL LIGHT AT REACH.
[2018-09-27] MEDS: INSULIN LISPRO 100 UNIT/1 ML 3ML VIAL SQ SCH ×4 (07:30→21:54)
[2018-09-27] MEDS: BUDESONIDE/FORMOTEROL 160/4.5MCG INHALER INH SCH ×2 (07:50→19:40)
[2018-09-27] MEDS: INSULIN DETEMIR 100 UNIT/ML PEN SQ SCH (09:00)
[2018-09-27] MEDS: DOCUSATE SODIUM 100 MG CAP PO SCH (09:26)
[2018-09-27] MEDS: METOPROLOL SUCCINATE 50 MG TAB XL PO SCH ×2 (09:26→17:33)
[2018-09-27] MEDS: ALLOPURINOL 300 MG TAB PO SCH (09:26)
[2018-09-27] MEDS: BALSAM PERU/CASTOR OIL 5 GM OINT...G. TP SCH (09:26)
[2018-09-27] MEDS: PREDNISONE 10 MG TAB PO SCH (09:26)
[2018-09-27] MEDS: FERROUS SULFATE 325 MG TAB PO SCH ×3 (09:26→21:53)
[2018-09-27] MEDS: CLOPIDOGREL BISULFATE 75 MG TAB PO SCH (09:26)
[2018-09-27] MEDS: DOXYCYCLINE HYCLATE TABLET 100 MG TAB PO SCH ×2 (09:26→21:53)
--- NOTE | 2018-09-27 12:27 | NUR ---
PATIENT NOTED WITH BLOOD SUGAR OF 475. 20 UNIT OF HUMALOG GIVEN ORDERED. BLOOD SUGAR RECHECKED AFTER 30 MINUTES WITH THE RESULT OF 414. PATIENT RECEIVED SOLUMEDROL 60MG AND PREDNISONE 10MG THIS AM. NOTIFIED NEW ORDER RECEIVED. WILL CLOSELY MONITOR.
[2018-09-27] MEDS ORDERED: INSULIN LISPRO 100 UNIT/1 ML 3ML VIAL SQ ONE (12:30)
--- NOTE | 2018-09-27 13:16 | NUR ---
PATIENT OUT OF BED TO CHAIR WATCHING TV, CALL LIGHT AT REACH.
--- NOTE | 2018-09-27 15:32 | NUR ---
FAMILY CONFRERENCE REGARDING DC PLAN ATTENDING: PATIENT PT'S DAUGHTER, KOREY ANDREWS PT'S PROVIDER, ROSAURA RUBI PT'S DAUGHTER CONCERNED THAT PROVIDER ROSAURA WILL NOT PHYSICALLY BE ABLE TO HANDLE THE PATIENT UPON DISCHARGE PT HAS BECOME INCREASINGLY WEAKER AFTER HIS COLON RESECTION LAST YEAR AND PROVIDER ROSAURA HAS RECENTLY BROKEN BOTH OF HER ARMS AND HAS DIFFICULTY WITH LIFTING EXPLAINED THAT P.T. 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
--- NOTE | 2018-09-27 16:33 | NUR ---
PATIENT IN BED RESTING WITH NO RESPIRATORY DISTRESS, CALL LIGHT AT REACH.
[2018-09-27 17:24] LABS: INR 1.15; PROTHROMBIN TIME 15.7 seconds (11.9-14.5)
--- NOTE | 2018-09-27 17:32 | NUR ---
PATIENT'S BLOOD SUGAR AT 341 AT THIS TIME. INSULIN ADMINISTERED ORDERED. WILL CONTINUE TO MONITOR.
[2018-09-27] MEDS: WARFARIN SOD 2.5 MG TAB PO SCH (17:47)
[2018-09-27] MEDS ORDERED: DEXAMETHASONE PHOS 10MG INJ 20 MG in SODIUM CHLORIDE 0.9% 50ML 50 ML IV NR ×2 (18:00→18:45)
[2018-09-27] MEDS ORDERED: FAMOTIDINE INJ 20 MG in SODIUM CHLORIDE 0.9% 50ML 50 ML IV ONE ×2 (18:00→18:45)
[2018-09-27] MEDS ORDERED: IRON DEXTRAN INJ 50 MG in SODIUM CHLORIDE 0.9% 100 ML IV ONE ×2 (18:00→18:45)
[2018-09-27] MEDS ORDERED: DIPHENHYDRAMINE HCL INJ 25 MG in SODIUM CHLORIDE 0.9% 50ML 50 ML IV NR ×2 (18:00→18:45)
[2018-09-27] MEDS ORDERED: IRON DEXTRAN INJ 500 MG in SODIUM CHLORIDE 0.9% 500ML 500 ML IV PRN ×4 (19:00)
--- NOTE | 2018-09-27 19:50 | NUR ---
RECEIVE DPT IN BED .PT GETTING HEXADROL FOR IRON TRANSFUSION. NO ACUTE DISTRESS NOTED CALL LIGHT WITH IN REACH
[2018-09-27] MEDS: ATORVASTATIN 10 MG TAB PO SCH (21:53)
[2018-09-27] MEDS: PANTOPRAZOLE SOD 40 MG TABEC PO SCH (21:53)
[2018-09-27] MEDS: MONTELUKAST SODIUM 10 MG TAB PO SCH (21:59)
[2018-09-28] VITALS (7 sets, daily range): BP systolic 110–167; BP diastolic 58–71
[2018-09-28] MEDS: TRAMADOL HCL 50 MG TAB PO SCH ×3 (01:00→12:31)
[2018-09-28] MEDS: ALBUTEROL/IPRATROPIUM 3 ML NEB NEB SCH ×3 (01:05→14:55)
[2018-09-28 05:46] LABS: BASOPHILS % 0.2 % (0.0-1.0); HEMATOCRIT 27.7 % (38.2-49.6); LYMPHOCYTES # (AUTO) 1.4 (1.0-3.2); LYMPHOCYTES % 9.4 % (18.0-39.1); MEAN CORPUSCULAR HEMOGLOBIN 28.7 pg (28-32); MEAN CORPUSCULAR HGB CONC 32.5 g/dL (31-35); MEAN CORPUSCULAR VOLUME 88.2 fL (81-99); MONOCYTES # (AUTO) 0.4 (0.2-0.8); MONOCYTES % 2.9 % (4.4-11.3); NEUTROPHILS # (AUTO) 11.9 (2.1-6.9); NEUTROPHILS % 83.2 % (38.7-80.0); PLATELET COUNT 375 x10e3/uL (140-360); RED BLOOD COUNT 3.14 x10e6/uL (4.3-5.7); RED CELL DISTRIBUTION WIDTH 19.9 % (11.7-14.4)
[2018-09-28 05:54] LABS: INR 1.19; PROTHROMBIN TIME 16.1 seconds (11.9-14.5)
[2018-09-28 06:07] LABS: ALANINE AMINOTRANSFERASE 7 IU/L (0-55); ALBUMIN 2.5 g/dL (3.5-5.0); ALBUMIN/GLOBULIN RATIO 0.9 (0.8-2.0); ALKALINE PHOSPHATASE 60 IU/L (40-150); ANION GAP 13.5 mmol/L (8-16); BLOOD UREA NITROGEN 23 mg/dL (7-26); BUN/CREATININE RATIO 20 (6-25); CARBON DIOXIDE 21 mmol/L (22-29); CHLORIDE 102 mmol/L (98-107); CREATININE, SERUM 1.15 mg/dL (0.72-1.25); EST GLOMERULAR FILTRATION RATE > 60 ML/MIN (60-); GLUCOSE 222 mg/dL (74-118); POTASSIUM 4.5 mmol/L (3.5-5.1); SODIUM 132 mmol/L (136-145)
--- NOTE | 2018-09-28 06:10 | NUR ---
PT RESTING .DENIES PAIN ..NO ACUTE DISTRESS NOTED .CALL LIGHT WITH IN REACH .CONTINUE TO MONITOR
[2018-09-28 07:03] LABS: TOTAL PROTEIN, URINE 19.5 mg/dL (1-14)
[2018-09-28] MEDS: INSULIN LISPRO 100 UNIT/1 ML 3ML VIAL SQ SCH ×2 (07:36→12:31)
[2018-09-28 07:47] LABS: BAND NEUTROPHILS % (MANUAL) 2 %; LYMPHOCYTES % (MANUAL) 6 % (19-48); METAMYELOCYTES % (MANUAL) 1 % (0-0); MONOCYTES % (MANUAL) 7 % (3.4-9.0); MYELOCYTES % (MANUAL) 2 % (0-0); NEUTROPHILS % (MANUAL) 82 % (40-74)
[2018-09-28 07:48] LABS: ANISOCYTOSIS MODERATE; HYPOCHROMASIA MODERATE; PLATELET ESTIMATE ADEQUATE; PLATELET MORPHOLOGY COMMENT FEW GIANT; RBC MORPHOLOGY COMMENT NORMAL
[2018-09-28] MEDS: DOXYCYCLINE HYCLATE TABLET 100 MG TAB PO SCH (08:18)
[2018-09-28] MEDS: METOPROLOL SUCCINATE 50 MG TAB XL PO SCH (08:18)
[2018-09-28] MEDS: DOCUSATE SODIUM 100 MG CAP PO SCH (08:18)
[2018-09-28] MEDS: ALLOPURINOL 300 MG TAB PO SCH (08:18)
[2018-09-28] MEDS: FERROUS SULFATE 325 MG TAB PO SCH ×2 (08:18→15:42)
[2018-09-28] MEDS: CLOPIDOGREL BISULFATE 75 MG TAB PO SCH (08:18)
[2018-09-28] MEDS: INSULIN DETEMIR 100 UNIT/ML PEN SQ SCH (08:20)
--- NOTE | 2018-09-28 08:24 | NUR ---
PT SIGNED CHOICE FOR MEDICAL RESORT FAXING CLINICALS TO [phone]. IMM SIGNED AND FILED IN CHART WITH COPY GIVEN TO DAUGHTER AT BEDSIDE.
--- NOTE | 2018-09-28 08:45 | NUR ---
Patient sitting up in bed, denies any pain or SOB, call light in reach,
[2018-09-28] MEDS: BALSAM PERU/CASTOR OIL 5 GM OINT...G. TP SCH (10:12)
[2018-09-28 10:30] LABS: PROTEIN/CREATININE RATIO,URINE 0.16
[2018-09-28] MEDS: BUDESONIDE/FORMOTEROL 160/4.5MCG INHALER INH SCH (10:41)
--- NOTE | 2018-09-28 14:09 | NUR ---
PT ACCEPTED AT [facility] RM [address] FUCHS. [facility] FILLED OUT FILED IN CHART WITH COPIES TO BE SENT WITH PT.
--- NOTE | 2018-09-28 15:07 | NUR ---
Recvd discharge order thru phone from Dr Peralta to medical resort. As per Family request they want to keep the Prajapati's catheter ON with patient
--- NOTE | 2018-09-28 16:50 | NUR ---
Patient discharged to medical resort, [facility], report called to Payton ZAPATA, Family at bed side, IV canula removed with tip intact, no ss of infiltration noted, Prajapati is intact, EMS in room picked patient.
[2018-09-29] MEDS ORDERED: PREDNISONE 5 MG TAB PO SCH (09:00)
[2018-09-29] MEDS ORDERED: PREDNISONE 10 MG TAB PO SCH (09:00)
== END 2018-09-28 16:53 | DRG 682 ==
LOC: ER 09:49 → ERHOLD 13:59 → MED/SURG3 15:51
PROVIDERS: ADMIT Internal Medicine; ATTEND Internal Medicine
DX: N17.0 Acute kidney failure with tubular necrosis (principal); A41.9 Sepsis, unspecified organism; J11.00 Influenza due to unidentified influenza virus with unspecified type of pneumonia; R65.20 Severe sepsis without septic shock; E87.1 Hypo-osmolality and hyponatremia; I13.0 Hypertensive heart and chronic kidney disease with heart failure and stage 1 through stage 4 chronic kidney disease, or unspecified chronic kidney disease; R33.9 Retention of urine, unspecified; N18.3 Chronic kidney disease, stage 3 (moderate); E11.65 Type 2 diabetes mellitus with hyperglycemia; E11.22 Type 2 diabetes mellitus with diabetic chronic kidney disease; J45.909 Unspecified asthma, uncomplicated; Z95.810 Presence of automatic (implantable) cardiac defibrillator; Z88.0 Allergy status to penicillin; Z86.718 Personal history of other venous thrombosis and embolism; Z82.49 Family history of ischemic heart disease and other diseases of the circulatory system; G47.33 Obstructive sleep apnea (adult) (pediatric); I50.9 Heart failure, unspecified; J98.6 Disorders of diaphragm; M10.9 Gout, unspecified; N40.0 Benign prostatic hyperplasia without lower urinary tract symptoms; Z79.4 Long term (current) use of insulin
CPT/HCPCS: 36415; 51700; 71045; 76770; 80048; 80053; 81001; 82550; 82553; 82570; 82948; 83540; 83690; 83735; 83880; 84156; 84484; 85025; 85610; 85730; 87086; 93005; 94640; 96361; 97139; 99284; J1100; J1200; J1750; J2920; J7030; J7040; J7050; J7512

== ENCOUNTER 2018-12-21 16:08 | Inpatient (IN) | payer MEDICARE, BC ==
[~2018-12-21] VITALS: Ht 177.8 cm; Wt 114.9 kg
[~2018-12-21 16:08] MED LIST changes: +ALLOPURINOL300 MG PO; +ATORVASTATIN CA10 MG PO; +CLOPIDOGREL75 MG PO; +DOCUSATE SODIU100 MG PO; +FERROUS SULFAT325 M1 PO; +LANTUS 3ML100 UNITS/ SC; +PREDNISONE20 MG PO; +SPIRONOLACTONE25 MG PO; +ULTRAM 50MG50 MG PO; +WARFARIN SODIUM1 MG PO; +WARFARIN SODIUM3 MG PO
--- OUTSIDE RECORDS SUMMARY | 2018-12-21 16:12 | XMS REPORT | Continuity of Care Document ---
Author Author [facility] Interface Address Unknown Phone Unavailable Problems Problem Status Onset Date Classification Date Reported Comments Source Unspecified asthma, uncomplicated 12/14/2017 03/15/2018 CICI Acosta J98.9 - "RESPIRATORY DISORDER, UNSPECIF" Active 10/23/2016 [facility] HOSPITAL FOLLOW UP Active 10/13/2016 [facility] TAVR 30 DAY FOLLOW UP Active 10/13/2016 [facility] HOSPITAL FOLLOW UP Active 10/13/2016 [facility] TAVR 30 DAY FOLLOW UP Active 10/13/2016 [facility] PRE ADMIT/*GEN ANESTHESIA*/TAVR CASE/*TT Active 10/08/2016 [facility] AORTIC STENOSIS Active 10/08/2016 [facility] AORTIC STENOSIS Active 10/08/2016 [facility] AORTIC STENOSIS/ DYSPEA /CARDIAC MURMUR Active 09/29/2016 [facility] TAVR Active 08/31/2016 [facility] J44.9 - CHRONIC OBSTRUCTIVE PULMONARY Active 11/26/2015 CICI Acosta 786.05 - SHORTNESS OF BR Active 08/08/2012 CICI Acosta Acute laryngopharyngitis Resolved Problem [facility] With Doming [facility] Problem [facility] Diabetes mellitus type II Active Problem [facility]/15[facility] (<span [id number]</span>) Active Problem [facility]/15[facility] Hypert[facility] Problem 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 NONRHEUMATIC AORTIC (VALVE) STENOSIS Active [facility] DYSPNEA, UNSPECIFIED Active 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 Medications Medication Details Route Status Patient Instructions Ordering Provider Order Date Source amLODIPine 10 mg oral tablet 10 mg=1 tab, PO, Daily, # 30 tab, 11 Refill(s) Active 11/09/2016 [facility] 24 HR Metformin hydrochloride 1000 MG Extended Release Tablet 1,000 mg=1 tab, PO, BID, 0 Refill(s) Active 10/19/2016 [facility] ezetimibe 10 MG / Simvastatin 40 MG Oral Tablet [Vytorin 1040] 1 tab, PO, Daily, 0 Refill(s) Active 10/19/2016 [facility] metoprolol tartrate 12.5 mg, 1 tab, Route: PO, Drug form: TAB, BID, Dosing Weight 121.818, kg, Start date: 10/11/16 17:00:00 SUPERCALENDER OPERATOR, Duration: 30 day, Stop date: 11/10/16 9:00:00 CSTNotes: (Same as: Lopressor) 12.5mg=1/4 X 50 mg tab. Inactive 10/11/2016 [facility] metoprolol tartrate 25 mg oral tablet 12.5 mg=0.5 tab, PO, BID, # 15 tab, 1 Refill(s) Active 10/11/2016 [facility] pantoprazole 40 mg oral enteric coated tablet 40 mg=1 tab, PO, Daily, # 30 tab, 0 Refill(s) Active 10/11/2016 [facility] Furosemide 40 MG Oral Tablet 40 mg=1 tab, PO, BID, # 60 tab, 3 Refill(s) Active 10/11/2016 [facility] clopidogrel 75 mg oral tablet 75 mg=1 tab, PO, Daily, # 90 tab, 0 Refill(s) Active 10/11/2016 [facility] ezetimibe 10 mg oral tablet 10 mg=1 tab, PO, Daily, 0 Refill(s) Active 10/11/2016 [facility] Hydrochlorothiazide 25 MG Oral Tablet 25 mg=1 tab, PO, Daily, # 30 tab, 1 Refill(s) Active 10/11/2016 [facility] simvastatin 40 mg oral tablet 40 mg=1 tab, PO, Bedtime, # 30 tab, 0 Refill(s) Active 10/11/2016 [facility] valsartan 80 mg oral tablet 160 mg=2 tab, PO, Daily, # 30 tab, 0 Refill(s) Active 10/11/2016 [facility] tolterodine 2 mg oral tablet 4 mg=2 tab, PO, Daily, # 30 tab, 0 Refill(s) Active 10/11/2016 [facility] amLODIPine 5 mg oral tablet 5 mg=1 tab, PO, Daily, # 30 tab, 3 Refill(s) Active 10/11/2016 [facility] Hydralazine 10 mg, 0.5 mL, Route: IV, Drug form: INJ, Q4H, Dosing Weight 121.818, kg, PRN Elevated BP, Start date: 10/11/16 2:32:00 SUPERCALENDER OPERATOR, Duration: 30 day, Stop date: 11/10/16 2:31:00 CSTNotes: (Same as: Apresoline) Push over 5 minutes Inactive 10/11/2016 [facility] Hydralazine 10 mg, 0.5 mL, Route: IVP, Drug form: INJ, Q6H, Dosing Weight 121.818, kg, PRN Other -See Comment, for SBP > 160, Start date: 10/10/16 23:57:00 SUPERCALENDER OPERATOR, Duration: 30 day, Stop date: 11/09/16 23:56:00 SUPERCALENDER OPERATOR Notes: (Same as: Apresoline) Push over 5 minutes No Longer Active 10/11/2016 [facility] Insulin, Aspart, Human 1 unit, 0.01 mL, Route: SUB-Q, Drug form: SOLN, Bedtime, Dosing Weight 121.818, kg, PRN Blood Glucose Results, Start date: 10/10/16 21:46:00 SUPERCALENDER OPERATOR, Duration: 30 day, Stop date: 11/09/16 21:45:00 CSTNotes: Roll in palms of hands gently; Do not shake vigorously. (Same as: NovoLOG) "single patient use only" WASTE: F/P - Black; E - Municipal Trash Bin Stable for 28 days at room temperature. Expires in days from Date No Longer Active 10/11/2016 [facility] Dextrose 50% Syringe 12.5 gm, 25 mL, Route: IVP, Drug Form: INJ, Dosing Weight 121.818, kg, PRN, PRN Blood Glucose Results, Start date: 10/10/16 21:46:00 SUPERCALENDER OPERATOR, Duration: 30 day, Stop date: 11/09/16 21:45:00 SUPERCALENDER OPERATOR No Longer Active 10/11/2016 [facility] Glucagon 1 mg, Route: IM, Drug form: PDR/INJ, PRN, Dosing Weight 121.818, kg, PRN Blood Glucose Results, Start date: 10/10/16 21:46:00 SUPERCALENDER OPERATOR, Duration: 30 day, Stop date: 11/09/16 21:45:00 SUPERCALENDER OPERATOR No Longer Active 10/11/2016 [facility] Singulair 10 mg, 1 tab, Route: PO, Drug form: TAB, Bedtime, Dosing Weight 121.818, kg, Start date: 10/10/16 21:00:00 SUPERCALENDER OPERATOR, Duration: 30 day, Stop date: 11/08/16 21:00:00 CSTNotes: (Same as:Singulair) No Longer Active 10/11/2016 [facility] Tylenol 650 mg, 2 tab, Route: PO, Drug form: TAB, Q6H, Dosing Weight 121.818, kg, PRN Pain 1-3/Temp > 100.4 F, Start date: 10/10/16 16:55:00 SUPERCALENDER OPERATOR, Duration: 30 day, Stop date: 11/09/16 16:54:00 CSTNotes: Do not exceed 4 gm/day. (Same as: Tylenol) No Longer Active 10/10/2016 [facility] Insulin, Aspart, Human 2 unit, 0.02 mL, Route: SUB-Q, Drug form: SOLN, TID-Before Meals, Dosing Weight 121.818, kg, PRN Blood Glucose Results, Start date: 10/10/16 11:45:00 SUPERCALENDER OPERATOR, Duration: 30 day, Stop date: 11/09/16 11:44:00 CSTNotes: Roll in palms of hands gently; Do not shake vigorously. (Same as: NovoLOG) "single patient use only" WASTE: F/P - Black; E - Municipal Trash Bin Stable for 28 days at room temperature. Expires in days from Date No Longer Active 10/10/2016 [facility] Dextrose 50% Syringe 25 mL, Route: IVP, Dosing Weight 121.818, kg, PRN, PRN Blood Glucose Results, Start date: 10/10/16 11:45:00 SUPERCALENDER OPERATOR, Duration: 30 day, Stop date: 11/09/16 11:44:00 SUPERCALENDER OPERATOR Inactive 10/10/2016 [facility] Glucagon 1 mg, Route: IM, PRN, Dosing Weight 121.818, kg, PRN Blood Glucose Results, Start date: 10/10/16 11:45:00 SUPERCALENDER OPERATOR, Duration: 30 day, Stop date: 11/09/16 11:44:00 SUPERCALENDER OPERATOR Inactive 10/10/2016 [facility] Insulin, Aspart, Human 6 unit, 0.06 mL, Route: SUB-Q, Drug form: SOLN, TID-Before Meals, Dosing Weight 121.818, kg, PRN Blood Glucose Results, Start date: 10/10/16 11:21:00 SUPERCALENDER OPERATOR, Duration: 30 day, Stop date: 11/09/16 11:20:00 CSTNotes: Roll in palms of hands gently; Do not shake vigorously. (Same as: NovoLOG) "single patient use only" WASTE: F/P - Black; E - Municipal Trash Bin Stable for 28 days at room temperature. Expires in days from Date Inactive 10/10/2016 [facility] Dextrose 50% Syringe 12.5 gm, 25 mL, Route: IVP, Drug Form: INJ, Dosing Weight 121.818, kg, PRN, PRN Blood Glucose Results, Start date: 10/10/16 11:21:00 SUPERCALENDER OPERATOR, Duration: 30 day, Stop date: 11/09/16 11:20:00 SUPERCALENDER OPERATOR No Longer Active 10/10/2016 [facility] Glucagon 1 mg, Route: IM, Drug form: PDR/INJ, PRN, Dosing Weight 121.818, kg, PRN Blood Glucose Results, Start date: 10/10/16 11:21:00 SUPERCALENDER OPERATOR, Duration: 30 day, Stop date: 11/09/16 11:20:00 SUPERCALENDER OPERATOR No Longer Active 10/10/2016 [facility] Amlodipine 5 mg, 1 tab, Route: PO, Drug form: TAB, Daily, Dosing Weight 121.818, kg, Start date: 10/10/16 9:00:00 SUPERCALENDER OPERATOR, Duration: 30 day, Stop date: 11/08/16 9:00:00 CSTNotes: (Same as: Norvasc) No Longer Active 10/10/2016 [facility] Diovan 160 mg, 2 tab, Route: PO, Drug form: TAB, Daily, Start date: 10/10/16 9:00:00 SUPERCALENDER OPERATOR, Duration: 30 day, Stop date: 11/08/16 9:00:00 CSTNotes: Same as Diovan No Longer Active 10/10/2016 [facility] clopidogrel 75 mg, 1 tab, Route: PO, Drug form: TAB, Daily, Dosing Weight 121.818, kg, Start date: 10/10/16 9:00:00 SUPERCALENDER OPERATOR, Duration: 30 day, Stop date: 11/08/16 9:00:00 CSTNotes: (Same As: Plavix) No Longer Active 10/10/2016 [facility] aspirin 81 mg tablet, enteric coated 81 mg, 1 tab, Route: PO, Drug form: ECTAB, Daily, Dosing Weight 121.818, kg, Start date: 10/10/16 9:00:00 SUPERCALENDER OPERATOR, Duration: 30 day, Stop date: 11/08/16 9:00:00 CSTNotes: Do not crush or chew. (Same As: Ecotrin) No Longer Active 10/10/2016 [facility] hydrochlorothiazide 25 mg oral tablet 25 mg, 1 tab, Route: PO, Drug form: TAB, Daily, Start date: 10/10/16 9:00:00 SUPERCALENDER OPERATOR, Duration: 30 day, Stop date: 11/08/16 9:00:00 CSTNotes: (Same as: Hydrodiuril) With food. No Longer Active 10/10/2016 [facility] VESICARE 5 mg, Route: PO, Drug form: TAB, Daily, Dosing Weight 121.818, kg, Start date: 10/10/16 9:00:00 SUPERCALENDER OPERATOR, Duration: 30 day, Stop date: 11/08/16 9:00:00 SUPERCALENDER OPERATOR No Longer Active 10/10/2016 [facility] Januvia 100 mg, 2 tab, Route: PO, Drug form: TAB, Daily, Dosing Weight 121.818, kg, Start date: 10/10/16 9:00:00 SUPERCALENDER OPERATOR, Duration: 30 day, Stop date: 11/08/16 9:00:00 CSTNotes: Same as Januvia Non-Formulary Item No Longer Active 10/10/2016 [facility] Omeprazole 20 mg, Route: PO, Drug form: DRC, Daily, Dosing Weight 121.818, kg, Start date: 10/10/16 9:00:00 SUPERCALENDER OPERATOR, Duration: 30 day, Stop date: 11/08/16 9:00:00 SUPERCALENDER OPERATOR No Longer Active 10/10/2016 [facility] montelukast 10 mg, 1 tab, Route: PO, Drug form: TAB, Daily, Dosing Weight 121.818, kg, Start date: 10/10/16 9:00:00 SUPERCALENDER OPERATOR, Duration: 30 day, Stop date: 11/08/16 9:00:00 CSTNotes: (Same as:Singulair) Inactive 10/10/2016 [facility] Hydrochlorothiazide 25 MG / valsartan 160 MG Oral Tablet 1 tab, Route: PO, Drug Form: TAB, Dosing Weight 121.818, kg, Daily, Start date: 10/10/16 9:00:00 SUPERCALENDER OPERATOR, Duration: 30 day, Stop date: 11/08/16 9:00:00 SUPERCALENDER OPERATOR No Longer Active 10/10/2016 [facility] glimepiride 4 mg, 2 tab, Route: PO, Drug form: TAB, Daily, Dosing Weight 121.818, kg, Start date: 10/10/16 9:00:00 SUPERCALENDER OPERATOR, Duration: 30 day, Stop date: 11/08/16 9:00:00 CSTNotes: (Same as: Amaryl) No Longer Active 10/10/2016 [facility] Protonix 40 mg, 1 tab, Route: PO, Drug form: ECTAB, Daily, Start date: 10/10/16 9:00:00 SUPERCALENDER OPERATOR, Duration: 30 day, Stop date: 11/08/16 9:00:00 CSTNotes: Tablet should not be chewed or crushed. (Same as: Protonix) No Longer Active 10/10/2016 [facility] ezetimibe 10 MG / Simvastatin 40 MG Oral Tablet 1 tab, Route: PO, Drug Form: TAB, Dosing Weight 121.818, kg, Daily, Start date: 10/10/16 9:00:00 SUPERCALENDER OPERATOR, Duration: 30 day, Stop date: 11/08/16 9:00:00 SUPERCALENDER OPERATOR No Longer Active 10/10/2016 [facility] Detrol LA 4 mg, 2 tab, Route: PO, Drug form: TAB, Daily, Start date: 10/10/16 9:00:00 SUPERCALENDER OPERATOR, Stop date: 11/08/16 9:00:00 CSTNotes: (Same As: Detrol) No Longer Active 10/10/2016 [facility] Clonidine Hydrochloride 0.2 MG Oral Tablet 0.2 mg, 2 tab, Route: PO, Drug form: TAB, Daily, Dosing Weight 121.818, kg, Start date: 10/10/16 9:00:00 SUPERCALENDER OPERATOR, Duration: 30 day, Stop date: 11/08/16 9:00:00 CSTNotes: (Same As: Catapres) Inactive 10/10/2016 [facility] Zetia 10 mg, 1 tab, Route: PO, Drug form: TAB, Daily, Start date: 10/10/16 9:00:00 SUPERCALENDER OPERATOR, Duration: 30 day, Stop date: 11/08/16 9:00:00 CSTNotes: (Same as: Zetia) No Longer Active 10/10/2016 [facility] Zocor 40 mg, 1 tab, Route: PO, Drug form: TAB, Bedtime, Start date: 10/09/16 21:00:00 SUPERCALENDER OPERATOR, Duration: 30 day, Stop date: 11/07/16 21:00:00 CSTNotes: (Same as: Zocor) No Longer Active 10/10/2016 [facility] Furosemide 40 MG Oral Tablet 40 mg, 1 tab, Route: PO, Drug form: TAB, BID, Dosing Weight 121.818, kg, Start date: 10/09/16 17:00:00 SUPERCALENDER OPERATOR, Duration: 30 day, Stop date: 11/08/16 9:00:00 CSTNotes: (Same as: Lasix) May cause GI upset. Give with food or milk. No Longer Active 10/09/2016 [facility] potassium chloride 10 mEq, 50 mL, Route: IVPB, Drug form: INJ, PRN, Dosing Weight 121.818, kg, PRN Abnormal Lab Result, For NON-ICU Patients Only, Start date: 10/09/16 14:52:00 SUPERCALENDER OPERATOR, Duration: 30 day, Stop date: 11/08/16 14:51:00 CSTNotes: (Same as: KCL) Infuse over 2 hours. No Longer Active 10/09/2016 [facility] Calcium Gluconate 3 gm, 30 mL, Route: IVPB, PRN, Dosing Weight 121.818, kg, PRN Abnormal Lab Result, For NON-ICU Patients Only., Start date: 10/09/16 14:52:00 SUPERCALENDER OPERATOR, Duration: 30 day, Stop date: 11/08/16 14:51:00 CSTNotes: WASTE: F/P - Sink; E - Municipal Trash Bin No Longer Active 10/09/2016 [facility] Magnesium Oxide 800 mg, 2 tab, Route: PO, Drug form: TAB, PRN, Dosing Weight 121.818, kg, PRN Abnormal Lab Result, For NON-ICU Patients Only., Start date: 10/09/16 14:52:00 SUPERCALENDER OPERATOR, Duration: 30 day, Stop date: 11/08/16 14:51:00 CSTNotes: (Same as: Mag-Ox 400) Magnesium oxide [id number] elemental magnesium Dose=____mg magnesium oxide (___mg elemental magnesium) No Longer Active 10/09/2016 [facility] Magnesium Sulfate 2 gm, 50 mL, Route: IVPB, Drug form: INJ, PRN, Dosing Weight 121.818, kg, PRN Abnormal Lab Result, For NON-ICU Patients Only., Start date: 10/09/16 14:52:00 SUPERCALENDER OPERATOR, Duration: 30 day, Stop date: 11/08/16 14:51:00 CSTNotes: WASTE: F/P - Sink; E - Municipal Trash Bin No Longer Active 10/09/2016 [facility] sodium phosphate + sodium chloride 0.9% INJ 250 mL 30 mmol, 10 mL, Route: IVPB, PRN, Dosing Weight 121.818, kg, PRN Abnormal Lab Result, For NON-ICU Patients Only., Start date: 10/09/16 14:52:00 SUPERCALENDER OPERATOR, Duration: 30 day, Stop date: 11/08/16 14:51:00 SUPERCALENDER OPERATOR No Longer Active 10/09/2016 [facility] potassium phosphate + sodium chloride 0.9% INJ 250 mL 30 mmol, 10 mL, Route: IVPB, PRN, Dosing Weight 121.818, kg, PRN Abnormal Lab Result, For NON-ICU Patients Only., Start date: 10/09/16 14:52:00 SUPERCALENDER OPERATOR, Duration: 30 day, Stop date: 11/08/16 14:51:00 CSTNotes: (Same as: K Phosphate.) 1 mMol phoshate has 1.47 mEq potassium Infuse over 4 hours No Longer Active 10/09/2016 [facility] potassium phosphate-sodium phosphate 250 mg-280 mg-160 mg oral powder for reconstitution 2 pkt, Route: PO, Drug Form: PDR/REC, Dosing Weight 121.818, kg, PRN, PRN Abnormal Lab Result, For NON-ICU Patients Only, Start date: 10/09/16 14:52:00 SUPERCALENDER OPERATOR, Duration: 30 day, Stop date: 11/08/16 14:51:00 CSTNotes: (Same as: Phos-NaK) Each 1.5 gm pkt has 250mg phosphorous. Mix w/2.5oz water and stir. No Longer Active 10/09/2016 [facility] Dexamethasone 4 mg, 0.4 mL, Route: IVP, Drug form: INJ, ONCE, Dosing Weight 121.818, kg, PRN Nausea & Vomiting, Start date: 10/09/16 11:57:00 CSTNotes: MEDICATION WASTE Product Size: 10 mg Product Wasted: ___ mg Inactive 10/09/2016 [facility] Ondansetron 4 mg, 2 mL, Route: IVP, Drug form: INJ, ONCE, Dosing Weight 121.818, kg, PRN Nausea & Vomiting, Start date: 10/09/16 11:57:00 CSTNotes: (Same as: Zofran) MEDICATION WASTE Product Size: 4 mg Product Wasted: ___ mg Inactive 10/09/2016 [facility] Promethazine 6.25 mg, 0.13 mL, Route: IVPB, Drug form: INJ, ONCE, Dosing Weight 121.818, kg, PRN Nausea & Vomiting, Start date: 10/09/16 11:57:00 CSTNotes: (Same as: Phenergan) Inactive 10/09/2016 [facility] Fentanyl 50 microgram, 1 mL, Route: IVP, Drug form: INJ, Q5Min, Dosing Weight 121.818, kg, PRN Pain Score 7-10, Priority: Routine, Start date: 10/09/16 11:57:00 SUPERCALENDER OPERATOR, Duration: 2 doses or times, Stop date: Limited # of timesNotes: (Same as: Sublimaze) Preservative free. Inactive 10/09/2016 [facility] Hydralazine 10 mg, 0.5 mL, Route: IVP, Drug form: INJ, Q20Min, Dosing Weight 121.818, kg, PRN Elevated BP, Start date: 10/09/16 11:57:00 SUPERCALENDER OPERATOR, Duration: 2 doses or times, Stop date: Limited # of timesNotes: (Same as: Apresoline) Push over 5 minutes Inactive 10/09/2016 [facility] Labetalol 10 mg, 2 mL, Route: IVP, Drug form: INJ, Q5Min, Dosing Weight 121.818, kg, PRN Elevated BP, Start date: 10/09/16 11:57:00 SUPERCALENDER OPERATOR, Duration: 5 doses or times, Stop date: Limited # of times Inactive 10/09/2016 [facility] Ondansetron 4 mg, 2 mL, Route: IVP, Drug form: INJ, Q8H, Dosing Weight 121.818, kg, PRN Nausea & Vomiting, Start date: 10/09/16 11:17:00 SUPERCALENDER OPERATOR, Duration: 30 day, Stop date: 11/08/16 11:16:00 CSTNotes: (Same as: Zofran) MEDICATION WASTE Product Size: 4 mg Product Wasted: ___ mg No Longer Active 10/09/2016 [facility] Sodium Chloride 0.154 MEQ/ML Injectable Solution 750 mL, Rate: 75 ml/hr, Infuse over: 10 hr, Route: IV, Dosing Weight 121.818 kg, Total Volume: 750, Start date: 10/09/16 11:17:00 SUPERCALENDER OPERATOR, Duration: 10 hr, Stop date: 10/09/16 21:16:00 SUPERCALENDER OPERATOR Inactive 10/09/2016 [facility] Acetaminophen 325 MG / Hydrocodone Bitartrate 5 MG Oral Tablet 1 tab, Route: PO, Drug Form: TAB, Dosing Weight 121.818, kg, Q4H, PRN Pain Score 4-6, Start date: 10/09/16 11:17:00 SUPERCALENDER OPERATOR, Duration: 30 day, Stop date: 11/08/16 11:16:00 CSTNotes: (Same as: Hobson 325/5) Do not exceed 4gm/day of acetaminophen. No Longer Active 10/09/2016 [facility] Hydrochlorothiazide 25 MG / valsartan 160 MG Oral Tablet 1 tab, PO, Daily, # 90 tab, 1 Refill(s) No Longer Active 10/09/2016 [facility] solifenacin succinate 5 MG Oral Tablet [VESICARE] 5 mg=1 tab, PO, Daily, # 30 tab, 0 Refill(s) Active 10/09/2016 [facility] valsartan PO, Valsartan/HCTZ 160/25, 0 Refill(s) Active 09/29/2016 [facility] Clonidine Hydrochloride 0.2 MG Oral Tablet 0.2 mg=1 tab, PO, Daily, 0 Refill(s) Active 09/29/2016 [facility] amLODIPine 2.5 mg oral tablet 2.5 mg=1 tab, PO, Daily, 0 Refill(s) Active 09/29/2016 [facility] ezetimibe 10 MG / Simvastatin 40 MG Oral Tablet [Vytorin 10/40] 1 tab, PO, Daily, 0 Refill(s) Active 09/29/2016 [facility] Metformin hydrochloride 1000 MG Oral Tablet 1,000 mg=1 tab, PO, BID, 0 Refill(s) Active 09/29/2016 [facility] montelukast 10 mg oral tablet 10 mg=1 tab, PO, Daily, 0 Refill(s) Active 09/29/2016 [facility] Home Medication Calcium Polycarbophil 625mg daily, Refill(s) 0 Active 09/29/2016 [facility] sitagliptin 100 MG Oral Tablet [Januvia] 100 mg=1 tab, PO, Daily, 0 Refill(s) Active 09/29/2016 [facility] omeprazole 20 mg oral delayed release capsule 20 mg=1 cap, PO, Daily, 0 Refill(s) Active 09/29/2016 [facility] glimepiride 4 mg, PO, Daily, 0 Refill(s) Active 09/29/2016 [facility] Furosemide 40 MG Oral Tablet 40 mg=1 tab, PO, Daily, 0 Refill(s) Active 09/29/2016 [facility] Aspirin Enteric Coated 81 mg oral delayed release tablet 81 mg=1 tab, PO, Daily, 0 Refill(s) Active 09/29/2016 [facility] Allergies, Adverse Reactions, Alerts Substance [...] Morton MD 05/11/17 14:08 FINAL REPORT TRISH Acosta Chest 2 views DX Chest 2 [...] AND STOOL UA Sq Epi RARE 10/11/2016 [facility] URINE AND STOOL UA Urobilinogen <=1.0 mg/dL 0.1 - 1.0 10/11/2016 [facility] URINE AND STOOL Micro? Performed *NA* (10/11/16 10:35 AM) 10/11/2016 [facility] URINE AND STOOL UA Mucus Few /LPF None Seen /LPF 10/11/2016 [facility] URINE AND STOOL UA WBC 1 /HPF 0 - 5 10/11/2016 [facility] URINE AND STOOL UA Turbidity Clear (10/11/16 10:35 AM) Clear 10/11/2016 [facility] URINE AND STOOL UA Color Light Yellow *NA* (10/11/16 10:35 AM) Yellow 10/11/2016 [facility] URINE AND STOOL UA Spec Grav 1.005 <=1.030 10/11/2016 [facility] URINE AND STOOL UA pH 6.0 5.0 - 8.0 10/11/2016 [facility] URINE AND STOOL UA Nitrite Negative (10/11/16 10:35 AM) Negative 10/11/2016 [facility] URINE AND STOOL UA Bili Negative *NA* (10/11/16 10:35 AM) Negative 10/11/2016 [facility] URINE AND STOOL UA Glucose 200 mg/dL Negative mg/dL 10/11/2016 [facility] URINE AND STOOL UA Ketones Negative mg/dL Negative mg/dL 10/11/2016 [facility] URINE AND STOOL UA Protein 10 mg/dL Negative mg/dL 10/11/2016 [facility] URINE AND STOOL UA Blood Negative (10/11/16 10:35 AM) Negative 10/11/2016 [facility] URINE AND STOOL UA Leuk Est Negative (10/11/16 10:35 AM) Negative 10/11/2016 [facility] CHEM PANEL Phosphorus 1.7 mg/dL 2.5 - 4.5 10/11/2016 [facility] CHEM PANEL Magnesium Lvl 2.1 mg/dL 1.8 - 2.4 10/11/2016 [facility] CHEM PANEL eGFR 60 mL/min/1.73m2 [...] should be multiplied by the estimated BMI. [facility] CHEM PANEL Sodium Lvl 136 meq/L 135 - 145 10/11/2016 [facility] CHEM PANEL Calcium Lvl 8.7 mg/dL 8.5 - 10.5 10/11/2016 [facility] CHEM PANEL Potassium Lvl 3.7 meq/L 3.5 - 5.1 10/11/2016 [facility] CHEM PANEL Chloride Lvl 101 meq/L 95 - 109 10/11/2016 [facility] CHEM PANEL CO2 24 meq/L 24 - 32 10/11/2016 [facility] CHEM PANEL Creatinine Lvl 1.15 mg/dL 0.50 - 1.40 10/11/2016 [facility] CHEM PANEL BUN 13 mg/dL 7 - 22 10/11/2016 [facility] CHEM PANEL Glucose Lvl 190 mg/dL 70 - 99 10/11/2016 [facility] CHEM PANEL AGAP 14.7 meq/L 10.0 - 20.0 10/11/2016 [facility] HEMATOLOGY Platelet 185 K/CMM 133 - 450 10/11/2016 [facility] HEMATOLOGY MPV 10.0 fL 7.4 - 10.4 10/11/2016 [facility] HEMATOLOGY RDW 17.4 % 11.5 - 14.5 10/11/2016 [facility] HEMATOLOGY Hct 34.0 % 42.0 - 54.0 10/11/2016 [facility] HEMATOLOGY MCV 76.7 fL 80.0 - 94.0 10/11/2016 [facility] HEMATOLOGY MCH 24.9 pg 27.0 - 31.0 10/11/2016 [facility] HEMATOLOGY MCHC 32.5 g/dL 32.0 - 36.0 10/11/2016 [facility] HEMATOLOGY Hgb 11.0 g/dL 14.0 - 18.0 10/11/2016 [facility] HEMATOLOGY WBC 13.3 K/CMM 3.7 - 10.4 10/11/2016 [facility] HEMATOLOGY RBC 4.43 M/CMM 4.70 - 6.10 10/11/2016 [facility] HEMATOLOGY Basophils # 0.1 K/CMM 0.0 - 0.2 10/11/2016 [facility] HEMATOLOGY Segs-Bands # 10.1 K/CMM 1.5 - 8.1 10/11/2016 [facility] HEMATOLOGY Monocytes # 1.4 K/CMM 0.0 - 0.8 10/11/2016 [facility] HEMATOLOGY Lymphocytes # 1.6 K/CMM 1.0 - 5.5 10/11/2016 [facility] HEMATOLOGY Eosinophils # 0.2 K/CMM 0.0 - 0.5 10/11/2016 [facility] HEMATOLOGY Segs 75.8 % 45.0 - 75.0 10/11/2016 [facility] HEMATOLOGY Monocytes 10.3 % 2.0 - 12.0 10/11/2016 [facility] HEMATOLOGY Lymphocytes 12.0 % 20.0 - 40.0 10/11/2016 [facility] HEMATOLOGY Basophils 0.4 % 0.0 - 1.0 10/11/2016 [facility] HEMATOLOGY Eosinophils 1.5 % 0.0 - 4.0 10/11/2016 [facility] HEMATOLOGY Microcyte 1+ *ABN* (10/11/16 2:19 AM) None Seen 10/11/2016 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 CARDIAC ENZYMES BNP 190 pg/mL <=100 pg/mL 10/10/2016 [facility] CHEM PANEL Magnesium Lvl 2.4 mg/dL 1.8 - 2.4 10/10/2016 [facility] ELECTROLYTES AGAP 14.9 meq/L 10.0 - 20.0 10/10/2016 [facility] ELECTROLYTES eGFR 60 mL/min/1.73m2 10/10/2016 [...] should be multiplied by the estimated BMI. [facility] ELECTROLYTES Calcium Lvl 8.1 mg/dL 8.5 - 10.5 10/10/2016 [facility] ELECTROLYTES BUN 15 mg/dL 7 - 22 10/10/2016 [facility] ELECTROLYTES Creatinine Lvl 1.14 mg/dL 0.50 - 1.40 10/10/2016 [facility] ELECTROLYTES Chloride Lvl 103 meq/L 95 - 109 10/10/2016 [facility] ELECTROLYTES CO2 25 meq/L 24 - 32 10/10/2016 [facility] ELECTROLYTES Potassium Lvl 3.9 meq/L 3.5 - 5.1 10/10/2016 [facility] ELECTROLYTES Sodium Lvl 139 meq/L 135 - 145 10/10/2016 [facility] ELECTROLYTES Glucose Lvl 203 mg/dL 70 - 99 10/10/2016 [facility] HEMATOLOGY PTT 31.8 s 22.9 - 35.8 10/10/2016 [facility] HEMATOLOGY PT 14.3 s 12.0 - 14.7 10/10/2016 [facility] HEMATOLOGY INR 1.09 0.85 - 1.17 10/10/2016 [facility] HEMATOLOGY MPV 10.1 fL 7.4 - 10.4 10/10/2016 [facility] HEMATOLOGY RDW 16.9 % 11.5 - 14.5 10/10/2016 [facility] HEMATOLOGY MCHC 32.4 g/dL 32.0 - 36.0 10/10/2016 [facility] HEMATOLOGY MCH 25.2 pg 27.0 - 31.0 10/10/2016 [facility] HEMATOLOGY Platelet 191 K/CMM 133 - 450 10/10/2016 [facility] HEMATOLOGY Hct 33.5 % 42.0 - 54.0 10/10/2016 [facility] HEMATOLOGY Hgb 10.8 g/dL 14.0 - 18.0 10/10/2016 [facility] HEMATOLOGY MCV 77.6 fL 80.0 - 94.0 10/10/2016 [facility] HEMATOLOGY RBC 4.31 M/CMM 4.70 - 6.10 10/10/2016 [facility] HEMATOLOGY WBC 11.7 K/CMM 3.7 - 10.4 10/10/2016 [facility] HEMATOLOGY Microcyte 1+ *ABN* (10/10/16 3:51 AM) None Seen 10/10/2016 [facility] HEMATOLOGY Eosinophils # 0.2 K/CMM 0.0 - 0.5 10/10/2016 [facility] HEMATOLOGY Monocytes # 1.1 K/CMM 0.0 - 0.8 10/10/2016 [facility] HEMATOLOGY Lymphocytes # 1.2 K/CMM 1.0 - 5.5 10/10/2016 [facility] HEMATOLOGY Segs-Bands # 9.2 K/CMM 1.5 - 8.1 10/10/2016 [facility] HEMATOLOGY Eosinophils 1.4 % 0.0 - 4.0 10/10/2016 [facility] HEMATOLOGY Basophils 0.4 % 0.0 - 1.0 10/10/2016 [facility] HEMATOLOGY Monocytes 9.4 % 2.0 - 12.0 10/10/2016 [facility] HEMATOLOGY Lymphocytes 10.2 % 20.0 - 40.0 10/10/2016 [facility] HEMATOLOGY Segs 78.6 % 45.0 - 75.0 10/10/2016 [facility] CHEM PANEL Magnesium Lvl 1.4 mg/dL 1.8 - 2.4 10/09/2016 [facility] ELECTROLYTES AGAP 9.8 meq/L 10.0 - 20.0 10/09/2016 [facility] ELECTROLYTES eGFR 52 mL/min/1.73m2 10/09/2016 [...] should be multiplied by the estimated BMI. [facility] ELECTROLYTES CO2 29 meq/L 24 - 32 10/09/2016 [facility] ELECTROLYTES Calcium Lvl 8.3 mg/dL 8.5 - 10.5 10/09/2016 [facility] ELECTROLYTES Creatinine Lvl 1.29 mg/dL 0.50 - 1.40 10/09/2016 [facility] ELECTROLYTES Sodium Lvl 140 meq/L 135 - 145 10/09/2016 [facility] ELECTROLYTES Glucose Lvl 165 mg/dL 70 - 99 10/09/2016 [facility] ELECTROLYTES Chloride Lvl 105 meq/L 95 - 109 10/09/2016 [facility] ELECTROLYTES Potassium Lvl 3.8 meq/L 3.5 - 5.1 10/09/2016 [facility] ELECTROLYTES BUN 23 mg/dL 7 - 22 10/09/2016 [facility] HEMATOLOGY WBC 12.1 K/CMM 3.7 - 10.4 10/09/2016 [facility] HEMATOLOGY RDW 17.0 % 11.5 - 14.5 10/09/2016 [facility] HEMATOLOGY Platelet 178 K/CMM 133 - 450 10/09/2016 [facility] HEMATOLOGY MPV 10.7 fL 7.4 - 10.4 10/09/2016 [facility] HEMATOLOGY RBC 4.17 M/CMM 4.70 - 6.10 10/09/2016 [facility] HEMATOLOGY MCV 77.5 fL 80.0 - 94.0 10/09/2016 [facility] HEMATOLOGY Hgb 10.5 g/dL 14.0 - 18.0 10/09/2016 [facility] HEMATOLOGY Hct 32.3 % 42.0 - 54.0 10/09/2016 [facility] HEMATOLOGY MCHC 32.4 g/dL 32.0 - 36.0 10/09/2016 [facility] HEMATOLOGY MCH 25.1 pg 27.0 - 31.0 10/09/2016 [facility] HEMATOLOGY Monocytes 3.0 % 2.0 - 12.0 10/09/2016 [facility] HEMATOLOGY Lymphocytes 9.0 % 20.0 - 40.0 10/09/2016 [facility] HEMATOLOGY Bands 0.0 % 0.0 - 11.0 10/09/2016 [facility] HEMATOLOGY Eosinophils 5.0 % 0.0 - 4.0 10/09/2016 [facility] HEMATOLOGY Eosinophils # 0.6 K/CMM 0.0 - 0.5 10/09/2016 [facility] HEMATOLOGY Monocytes # 0.4 K/CMM 0.0 - 0.8 10/09/2016 [facility] HEMATOLOGY Lymphocytes # 1.1 K/CMM 1.0 - 5.5 10/09/2016 [facility] HEMATOLOGY Segs-Bands # 10.0 K/CMM 1.5 - 8.1 10/09/2016 [facility] HEMATOLOGY Segs 83.0 % 45.0 - 75.0 10/09/2016 [facility] HEMATOLOGY Microcyte 1+ *ABN* (10/09/16 1:32 PM) None Seen 10/09/2016 [facility] HEMATOLOGY Plt Morph Normal (10/09/16 1:32 PM) 10/09/2016 [facility] HEMATOLOGY Atypical Lymphs 0.0 % <=0.0 % 10/09/2016 [facility] HEMATOLOGY PT 14.6 s 12.0 - 14.7 10/09/2016 [facility] HEMATOLOGY PTT 32.4 s 22.9 - 35.8 10/09/2016 [facility] HEMATOLOGY INR 1.12 0.85 - 1.17 10/09/2016 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 BLOOD BANK RESULTS Antibody Scrn Negative (10/09/16 6:38 AM) 10/09/2016 [facility] BLOOD BANK RESULTS ABO/Rh O POS 10/09/2016 [facility] BLOOD BANK RESULTS FFP product Product available (10/09/16 6:38 AM) 10/09/2016 [facility] BLOOD BANK RESULTS RBC product Product available (10/09/16 6:38 AM) 10/09/2016 [facility] CHEM PANEL Globulin 3.3 g/dL 2.7 - 4.2 10/09/2016 [facility] CHEM PANEL A/G Ratio 1.1 0.7 - 1.6 10/09/2016 [facility] CHEM PANEL B/C Ratio 18 6 - 25 10/09/2016 [facility] CHEM PANEL Bili Total 0.2 mg/dL 0.2 - 1.3 10/09/2016 [facility] CHEM PANEL Total Protein 7.0 g/dL 6.4 - 8.4 10/09/2016 [facility] CHEM PANEL AST 12 unit/L 0 - 37 10/09/2016 [facility] CHEM PANEL ALT 19 unit/L 0 - 65 10/09/2016 [facility] CHEM PANEL Albumin Lvl 3.7 g/dL 3.5 - 5.0 10/09/2016 [facility] CHEM PANEL Alk Phos 60 unit/L 39 - 136 10/09/2016 [facility] HEMATOLOGY Basophils 1.1 % 0.0 - 1.0 10/09/2016 [facility] HEMATOLOGY Basophils # 0.1 K/CMM 0.0 - 0.2 10/09/2016 [facility] HEMATOLOGY INR 1.02 0.85 - 1.17 10/09/2016 [facility] HEMATOLOGY PTT 32.4 s 22.9 - 35.8 10/09/2016 [facility] HEMATOLOGY PT 13.6 s 12.0 - 14.7 10/09/2016 [facility] CHEM PANEL eGFR 40 mL/min/1.73m2 [...] should be multiplied by the estimated BMI. [facility] CHEM PANEL POC Creatinine 1.6 mg/dL 0.5 - 1.4 09/30/2016 [facility] Heart/coronary art TAVR CTA Heart/coronary art TAVR CTA EXAM: CARDIAC COMPUTED TOMOGRAPHY ANGIOGRAPHY DATE: September 30, 2016 INDICATION: Aortic stenosis. COMPARISON: None TECHNIQUE: Contrast imaging was performed on a [employer] [address] scanner utilizing a [...] and moderate concentric hypertrophy. Ejection Fraction: >70% RFO=756 cc ESV=25 cc VP=963 cc Lung calvillo to the extent visualized in limited study: Please see radiologist interpretation for extracardiac findings. IMPRESSION: Aortic valve disease. Three-vessel coronary artery disease. 09/30/2016 - - Read by: Josh Guillen MD Dictated Date/time: 09/30/16 15:41 Electronically Signed by: Josh Guillen MD 09/30/16 15:[address] 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 [...] - This report was dictated by a [employer] Operator/Fellow. I have personally reviewed the images as well as the Resident's interpretation and agree with the findings. Read by: Suzan Parry MD Resident: Suzan Parry MD Dictated Date/time: 09/30/16 14:58 Electronically Signed by: Beny Hawley MD 10/02/16 10:[address] [facility] Chest 2 views DX Chest [...] Date Comments Source Height 177.8 cm 11/09/2016 [facility] Weight 118.324 11/09/2016 [facility] BMI Calculated 37.43 11/09/2016 [facility] Systolic (mm Hg) 160 11/09/2016 [facility] Diastolic (mm Hg) 70 11/09/2016 [facility] Heart Rate 68 11/09/2016 [facility] Temperature Oral (F) 98.0 F 11/09/2016 [facility] BMI Calculated 38.4 10/19/2016 [facility] Weight 121.392 10/19/2016 [facility] Height 177.8 cm 10/19/2016 [facility] Heart Rate 78 10/19/2016 [facility] Temperature Oral (F) 97.9 F 10/19/2016 [facility] Respitory Rate 24 10/19/2016 [facility] Systolic (mm Hg) 150 10/19/2016 [facility] Diastolic (mm Hg) 60 10/19/2016 [facility] Systolic (mm Hg) 126 10/11/2016 [facility] Diastolic (mm Hg) 75 10/11/2016 [facility] Systolic (mm Hg) 146 10/11/2016 [facility] Diastolic (mm Hg) 119 10/11/2016 [facility] Temperature Oral (F) 99.0 F 10/11/2016 [facility] Temperature Oral (F) 99.2 F 10/11/2016 [facility] Temperature Oral (F) 98.1 F 10/11/2016 [facility] Systolic (mm Hg) 142 10/11/2016 [facility] Diastolic (mm Hg) 71 10/11/2016 [facility] Respitory Rate 18 10/11/2016 [facility] Respitory Rate 18 10/11/2016 [facility] Respitory Rate 20 10/11/2016 [facility] BMI Calculated 38.53 10/09/2016 [facility] Height 177.8 cm 10/09/2016 [facility] Weight 121.818 10/09/2016 [facility] Height 177.8 cm 09/30/2016 [facility] Weight 118.636 09/30/2016 [facility] BMI Calculated 37.53 09/30/2016 [facility] Temperature Oral (F) 98.0 F 09/29/2016 [facility] Height 177.8 cm 09/29/2016 [facility] Weight 118.835 09/29/2016 [facility] BMI Calculated 37.59 09/29/2016 [facility] Heart Rate 66 09/29/2016 [facility] Respitory Rate 18 09/29/2016 [facility] Encounters Location Location Details Encounter Type Encounter Number Reason For Visit Attending Provider ADM Date DC Date Status Source OD [id number] 786.05 - SHORTNESS OF BR JORGE LUIS LEUNG 08/08/2012 Active [facility] [place] [facility] [place] [facility] [id number] Jorge Luis Leung 10/04/2014 10/05/2014 [facility] [place] [facility] [place] [facility] [id number] Jorge Luis Leung 11/26/2015 11/27/2015 [facility] [place] [facility] Outpatient [id number] Bridget Herzog 09/29/2016 09/30/2016 [facility] Outpatient [id number] Beni Booth 09/30/2016 10/01/2016 [facility] Inpatient [id number] Bridget Herzog 10/09/2016 10/11/2016 [facility] Outpatient [id number] Alexis Ziegler 10/19/2016 10/20/2016 [facility] [place] [facility] [id number] Jorge Luis Leung 10/23/2016 10/24/2016 [facility] [place] [facility] Outpatient [id number] Bridget Herzog 11/09/2016 11/10/2016 [facility] [place] [facility] [id number] Jorge Luis Leung 05/11/2017 05/12/2017 [facility] [place] [facility] [place] [facility] [id number] Jorge Luis Leung 12/07/2017 12/08/2017 [facility] [place] Procedures Procedure Code Date Perfomer Comments Source
[2018-12-21] MEDS ORDERED: SODIUM CHLORIDE 0.9% 1000ML 1,000 ML IV STA (17:09)
[2018-12-21 17:44] LABS: BASOPHILS # (AUTO) 0.1 (0.0-0.1); BASOPHILS % 0.3 % (0.0-1.0); EOSINOPHILS # (AUTO) 0.1 (0.0-0.4); EOSINOPHILS % 0.4 % (0.0-6.0); HEMOGLOBIN 12.5 g/dL (14.0-18.0); LYMPHOCYTES # (AUTO) 0.9 (1.0-3.2); LYMPHOCYTES % 4.6 % (18.0-39.1); MEAN CORPUSCULAR HEMOGLOBIN 28.8 pg (28-32); MEAN CORPUSCULAR HGB CONC 32.1 g/dL (31-35); MEAN CORPUSCULAR VOLUME 89.9 fL (81-99); MONOCYTES # (AUTO) 1.8 (0.2-0.8); MONOCYTES % 9.2 % (4.4-11.3); NEUTROPHILS % 84.7 % (38.7-80.0); PLATELET COUNT 190 x10e3/uL (140-360); RED BLOOD COUNT 4.34 x10e6/uL (4.3-5.7); RED CELL DISTRIBUTION WIDTH 15.7 % (11.7-14.4)
--- NOTE | 2018-12-21 18:00 | Diagnostic Imaging Report ---
EXAMINATION: CHEST SINGLE (PORTABLE) INDICATION: Pneumonia ^R/O PNEUMONIA ^[id number] ^1735 ^Y COMPARISON: September 21, 2018 FINDINGS: TUBES and LINES: Left anterior chest cardiac device. LUNGS: The lungs are hypoinflated. Perihilar peribronchial hazy opacity could be due to bronchitis or developing pneumonia in the appropriate clinical setting. PLEURA: No pleural effusion or pneumothorax. HEART AND MEDIASTINUM: The heart is enlarged and there is pulmonary vascular congestion. BONES AND SOFT TISSUES: No acute osseous lesion. Soft tissues are unremarkable. UPPER ABDOMEN: No free air under the diaphragm. IMPRESSION: Perihilar peribronchial hazy opacity could be due to bronchitis or developing pneumonia in the appropriate clinical setting The heart is enlarged and there is pulmonary vascular congestion Signed by: Dr. Pool Klein M.D. on 12/21/2018 5:57 PM
[2018-12-21 19:38] LABS: INR 1.55; PROTHROMBIN TIME 19.2 seconds (11.9-14.5)
[2018-12-21 19:39] LABS: PARTIAL THROMBOPLASTIN TIME 47.6 seconds (23.8-35.5)
[2018-12-21 19:44] LABS: ALBUMIN 2.8 g/dL (3.5-5.0); ALBUMIN/GLOBULIN RATIO 0.7 (0.8-2.0); ALKALINE PHOSPHATASE 100 IU/L (40-150); ANION GAP 14.4 mmol/L (8-16); BLOOD UREA NITROGEN 19 mg/dL (7-26); BUN/CREATININE RATIO 15 (6-25); CALCIUM 10.2 mg/dL (8.4-10.2); CARBON DIOXIDE 27 mmol/L (22-29); CHLORIDE 97 mmol/L (98-107); CREATINE KINASE 29 IU/L (30-200); CREATININE, SERUM 1.25 mg/dL (0.72-1.25); EST GLOMERULAR FILTRATION RATE 55 ML/MIN (60-); GLUCOSE 250 mg/dL (74-118); POTASSIUM 4.4 mmol/L (3.5-5.1); SODIUM 134 mmol/L (136-145)
[2018-12-21 19:46] LABS: ALANINE AMINOTRANSFERASE < 6 IU/L (0-55)
[2018-12-21 20:03] LABS: THYROID STIMULATING HORMONE 0.782 uIU/mL (0.350-4.940)
[2018-12-21 20:19] LABS: LYMPHOCYTES % (MANUAL) 1 % (19-48); MONOCYTES % (MANUAL) 13 % (3.4-9.0); NEUTROPHILS % (MANUAL) 85 % (40-74); PLATELET ESTIMATE ADEQUATE; PLATELET MORPHOLOGY COMMENT FEW LARGE; RBC MORPHOLOGY COMMENT NORMAL
[2018-12-21 20:30] LABS: BILIRUBIN,URINE NEGATIVE (NEGATIVE); CLARITY,URINE SL CLOUDY (CLEAR); COLOR,URINE YELLOW (YELLOW); KETONES,URINE NEGATIVE (NEGATIVE); LEUKOCYTE ESTERASE ,URINE NEGATIVE (NEGATIVE); NITRITE,URINE NEGATIVE (NEGATIVE); PROTEIN,URINE DIPSTICK 2+ (NEGATIVE); URINE UROBILINOGEN 0.2 mg/dL (0.2 - 1)
[2018-12-21 20:40] LABS: BACTERIA,URINE MODERATE /HPF
[2018-12-21 20:41] LABS: AMORPHOUS SEDIMENT,URINE MODERATE (FEW)
[2018-12-21] MEDS ORDERED: DEXTROSE 50% SYRINGE 50 ML IV PRN (22:15)
[2018-12-21] MEDS ORDERED: METHYLPREDNISOLONE SOD SUCC 125 MG/2ML VIAL IV ONE (22:15)
[2018-12-21] MEDS: ALBUTEROL SULF 0.083% NEB SOLN 3 ML NEB NEB SCH (23:00)
[2018-12-22] VITALS (9 sets, daily range): BP systolic 127–190; BP diastolic 64–86
[2018-12-22] MEDS ORDERED: METHYLPREDNISOLONE SOD SUCC 40 MG/ML VIAL 1ML IV SCH
[2018-12-22] MEDS: CEFTRIAXONE SOD 1 GM/NS 50 ML 50 ML IV SCH ×2 (00:36→21:45)
[2018-12-22] MEDS: SODIUM CHLORIDE 0.9% 1000ML 1,000 ML IV SCH ×2 (00:36→11:22)
[2018-12-22] MEDS: IPRATROPIUM BROMIDE 0.02% 2.5 ML NEB NEB SCH ×5 (01:00→23:30)
--- NOTE | 2018-12-22 02:00 | NUR ---
Patient received via stretcher from ER. AAO x 2. Admission history and Initial physical assessment completed. Patient had no complaints of pain. No signs of respiratory distress. Patient oriented to room, call light and plan of care. Bed locked and in lowest position. Bed rails up x 2. Bed alarm activated. Patient instructed to call for assistance when needed. Call light within reach.
--- NOTE | 2018-12-22 02:30 | NUR ---
Blood culture x 1 sent to lab along with blood specimen for cardiac enzyme analysis.
[2018-12-22] MEDS: ALBUTEROL SULF 0.083% NEB SOLN 3 ML NEB NEB SCH ×6 (03:00→23:30)
[2018-12-22] MEDS: AZITHROMYCIN 500MG/NS 250 ML 250 ML IV SCH ×2 (03:00→09:30)
--- NOTE | 2018-12-22 03:00 | NUR ---
Blood culture ( 2nd batch) sent to lab for analysis.
[2018-12-22 03:36] LABS: CREATINE KINASE MB 0.7 ng/mL (0-5.0)
[2018-12-22 05:46] LABS: BASOPHILS % 0.2 % (0.0-1.0); EOSINOPHILS # (AUTO) 0.1 (0.0-0.4); EOSINOPHILS % 0.5 % (0.0-6.0); HEMATOCRIT 36.3 % (38.2-49.6); HEMOGLOBIN 11.9 g/dL (14.0-18.0); LYMPHOCYTES # (AUTO) 0.5 (1.0-3.2); LYMPHOCYTES % 3.3 % (18.0-39.1); MEAN CORPUSCULAR HEMOGLOBIN 29.4 pg (28-32); MEAN CORPUSCULAR HGB CONC 32.8 g/dL (31-35); MEAN CORPUSCULAR VOLUME 89.6 fL (81-99); MONOCYTES # (AUTO) 0.5 (0.2-0.8); MONOCYTES % 3.1 % (4.4-11.3); NEUTROPHILS # (AUTO) 14.6 (2.1-6.9); NEUTROPHILS % 92.1 % (38.7-80.0); PLATELET COUNT 203 x10e3/uL (140-360); RED BLOOD COUNT 4.05 x10e6/uL (4.3-5.7); RED CELL DISTRIBUTION WIDTH 15.2 % (11.7-14.4)
[2018-12-22 05:58] LABS: ANION GAP 12.7 mmol/L (8-16); BLOOD UREA NITROGEN 21 mg/dL (7-26); BUN/CREATININE RATIO 20 (6-25); CALCIUM 9.6 mg/dL (8.4-10.2); CARBON DIOXIDE 25 mmol/L (22-29); CHLORIDE 98 mmol/L (98-107); CREATININE, SERUM 1.04 mg/dL (0.72-1.25); EST GLOMERULAR FILTRATION RATE > 60 ML/MIN (60-); GLUCOSE 220 mg/dL (74-118); POTASSIUM 4.7 mmol/L (3.5-5.1); SODIUM 131 mmol/L (136-145)
--- NOTE | 2018-12-22 06:00 | Diagnostic Imaging Report ---
Examination: Single AP view of the chest. COMPARISON: 12/21/2018 INDICATION: pneumonia DISCUSSION: Lines/tubes: None. Lungs: Stable central venous congestion with perihilar opacities. Pleura: No effusion or pneumothorax. Heart and mediastinum: The heart and the mediastinum are unremarkable. Bones and soft tissues: No acute bony abnormalities. IMPRESSION: 1. Stable central venous congestion with perihilar opacities. Signed by: Dr. Michael Figueroa M.D. on 12/22/2018 5:57 AM
[2018-12-22] MEDS: METHYLPREDNISOLONE SOD SUCC 40 MG/ML VIAL 1ML IV SCH ×3 (06:11→17:40)
[2018-12-22] MEDS: TRAMADOL HCL 50 MG TAB PO SCH ×3 (06:11→17:40)
[2018-12-22] MEDS: DOCUSATE SODIUM 100 MG CAP PO SCH (09:30)
[2018-12-22] MEDS: CLOPIDOGREL BISULFATE 75 MG TAB PO SCH (09:30)
[2018-12-22] MEDS: PREDNISONE 20 MG TAB PO SCH (09:30)
[2018-12-22] MEDS: METOPROLOL SUCCINATE 50 MG TAB XL PO SCH ×2 (09:30→17:39)
[2018-12-22] MEDS: FUROSEMIDE 40 MG TAB PO SCH ×2 (09:30→17:39)
[2018-12-22] MEDS: SPIRONOLACTONE 25 MG TAB PO SCH ×2 (09:30→17:38)
[2018-12-22] MEDS: ALLOPURINOL 300 MG TAB PO SCH (09:31)
[2018-12-22] MEDS: METOLAZONE 5 MG TAB PO SCH (09:31)
[2018-12-22] MEDS: INSULIN LISPRO 100 UNIT/1 ML 3ML VIAL SQ SCH ×4 (09:31→22:20)
[2018-12-22 11:44] LABS: CREATINE KINASE MB 1.1 ng/mL (0-5.0)
--- NOTE | 2018-12-22 14:45 | NUR ---
CASE MANAGEMENT ASSESSMENT [employer] [facility] to bedside to discuss plan of care with patient/family. CM/SW role and care transitions discussed. Anticipated discharge plan discussed along with duration of care. CM/SW discussed patients right to make decisions in care. CM/SW work hours given. Pt is not oriented. CM called and spoke to moise Castillo Patient lives: neurosurgery spine physician Regine Acosta, SOFTWARE ENGINEER ADVISOR lives with pt. Admit/Transfer: thru ED Hospital/ER visits since last admit: 0 POA/Emergency contact: daughter/POA Anna Bhatti [phone], neurosurgery spine physician Regine Acosta [phone] Ms. Bhatti stated that staff can talk to Regine regarding any questions / concerns. Current/Previous Home Health: does have home health but she will call CM once she looks at paperwork; pt has nursing and PT PCP/Follow-up Care: Dr. Peralta. daughter said she will have her dad follow up within 5-7 days of discharge. Current/Previous DME: hospital bed, walker Medications (referring to index hospitalization or the first time you were in the hospital) a. Were changes made in your medications when you were in the hospital on Sep 2018? yes b. Did you understand the changes? yes c. Were you able to obtain your new medications right away? yes d. Were you able to take your medications like the doctor wanted you to? yes e. Did the hospital give you an accurate, easy to understand list of medications when you left? yes Scale of 1-10 how comfortable does patient feel with disease management in outpatient setting: Other Services: none Employment Status: retired Areas of Concerns: weakness, pneumonia Referral Needs: may need SNF or home with home health Education Needs: medical management IMM/GRIGSBY given and signed (if applicable): none at this time Goal for discharge: home with home health. Daughter stated pt went to [facility] on discharge in September. stated that if pt needs to go to a SNF on discharge, she wants him to go back to [facility]. Choice letter placed in chart. CM/SW left business card at the bedside with contact information. Name and number was also written on the patients whiteboard. Patient verbalized understanding of discussion. CM will follow-up with ongoing discharge and transition of care needs.
[2018-12-22] MEDS: WARFARIN SOD 2.5 MG TAB PO SCH (17:38)
--- NOTE | 2018-12-22 19:28 | NUR ---
Patient received lying in bed. AAO x 3. Family friend at bedside. Patient had no complaints of pain. No signs of respiratory distress. Fall precautions maintained. Patient instructed to call for assistance when needed. Call light within reach.
[2018-12-22] MEDS ORDERED: WARFARIN SOD 3 MG TAB PO SCH (21:00)
[2018-12-22] MEDS: ATORVASTATIN 10 MG TAB PO SCH (21:48)
[2018-12-22] MEDS: PANTOPRAZOLE SOD 40 MG TABEC PO SCH (21:48)
[2018-12-22] MEDS: MONTELUKAST SODIUM 10 MG TAB PO SCH (21:48)
--- NOTE | 2018-12-22 22:15 | NUR ---
Patient's blood sugar recorded as 438. Insulin administered per eMAR. Dr. Peralta notified of elevated BS level. No new order received.
[2018-12-23] VITALS (8 sets, daily range): BP systolic 127–158; BP diastolic 59–87
[2018-12-23] MEDS: TRAMADOL HCL 50 MG TAB PO SCH ×3 (00:30→12:00)
[2018-12-23] MEDS: METHYLPREDNISOLONE SOD SUCC 40 MG/ML VIAL 1ML IV SCH ×4 (00:30→17:34)
[2018-12-23] MEDS: SODIUM CHLORIDE 0.9% 1000ML 1,000 ML IV SCH ×2 (00:42→14:02)
[2018-12-23] MEDS: ALBUTEROL SULF 0.083% NEB SOLN 3 ML NEB NEB SCH ×5 (03:00→20:30)
--- NOTE | 2018-12-23 06:15 | NUR ---
Patient's IV infiltrated on right arm. New IV inserted in right hand 20G. Patient tolerated well.
[2018-12-23] MEDS: IPRATROPIUM BROMIDE 0.02% 2.5 ML NEB NEB SCH ×3 (07:00→20:30)
--- NOTE | 2018-12-23 07:10 | NUR ---
RCD PT AT BED PT IS ALERT AND ORIENTED PT RESTING ON BED NO SIGNS OF ANY DISTRESS NOTED IV PATENT BED LOW AND LOCKED CALL LIGHT IN REACH
--- NOTE | 2018-12-23 07:10 | NUR ---
Walking rounds done. Shift report given to oncoming nurse.
[2018-12-23] MEDS: INSULIN LISPRO 100 UNIT/1 ML 3ML VIAL SQ SCH ×5 (07:30→21:00)
[2018-12-23] MEDS: METOLAZONE 5 MG TAB PO SCH (09:00)
[2018-12-23] MEDS: FUROSEMIDE 40 MG TAB PO SCH ×2 (09:00→16:34)
[2018-12-23] MEDS: METOPROLOL SUCCINATE 50 MG TAB XL PO SCH ×2 (09:00→17:00)
[2018-12-23] MEDS: DOCUSATE SODIUM 100 MG CAP PO SCH (09:00)
[2018-12-23] MEDS: PREDNISONE 20 MG TAB PO SCH (09:00)
[2018-12-23] MEDS: AZITHROMYCIN 500MG/NS 250 ML 250 ML IV SCH (09:00)
[2018-12-23] MEDS: CLOPIDOGREL BISULFATE 75 MG TAB PO SCH (09:00)
[2018-12-23] MEDS: ALLOPURINOL 300 MG TAB PO SCH (09:00)
[2018-12-23] MEDS: SPIRONOLACTONE 25 MG TAB PO SCH ×2 (09:00→16:34)
--- NOTE | 2018-12-23 12:29 | NUR ---
paged and notified blood sugar dr vaerla got new orders
[2018-12-23] MEDS ORDERED: DEXTROSE 50% SYRINGE 50 ML IV PRN (12:30)
[2018-12-23 12:45] LABS: INR 1.26; PROTHROMBIN TIME 16.4 seconds (11.9-14.5)
[2018-12-23] MEDS ORDERED: INSULIN LISPRO 100 UNIT/1 ML 3ML VIAL SQ SCH (16:30)
[2018-12-23] MEDS: WARFARIN SOD 2.5 MG TAB PO SCH (16:34)
--- NOTE | 2018-12-23 18:51 | NUR ---
PT RESTING ON BED BED BED SIDE REPORT GIVEN TO ONCOMING NURSE
--- NOTE | 2018-12-23 19:22 | NUR ---
Patient received sitting in recliner chair watching TV. AAO x 3. Patient had no complaints of pain. Respirations even and non-labored. Patient made comfortable and instructed to call for assistance when needed. Call light within reach.
--- NOTE | 2018-12-23 20:12 | NUR ---
Patient complained about pain to left hand and bilateral feet. Dr. Peralta notified. New order received.
[2018-12-23] MEDS ORDERED: ACETAMINOPHEN 325 MG TAB PO PRN (20:15)
[2018-12-23] MEDS: ATORVASTATIN 10 MG TAB PO SCH (21:00)
[2018-12-23] MEDS: PANTOPRAZOLE SOD 40 MG TABEC PO SCH (21:00)
[2018-12-23] MEDS: MONTELUKAST SODIUM 10 MG TAB PO SCH (21:00)
[2018-12-23] MEDS: CEFTRIAXONE SOD 1 GM/NS 50 ML 50 ML IV SCH (21:45)
[2018-12-24] VITALS (8 sets, daily range): BP systolic 117–153; BP diastolic 60–86
[2018-12-24] MEDS: METHYLPREDNISOLONE SOD SUCC 40 MG/ML VIAL 1ML IV SCH ×4 (00:15→17:53)
[2018-12-24] MEDS: ALBUTEROL SULF 0.083% NEB SOLN 3 ML NEB NEB SCH ×7 (00:30→23:15)
[2018-12-24] MEDS: IPRATROPIUM BROMIDE 0.02% 2.5 ML NEB NEB SCH ×5 (00:30→23:15)
[2018-12-24] MEDS: SODIUM CHLORIDE 0.9% 1000ML 1,000 ML IV SCH ×2 (03:22→16:42)
[2018-12-24] MEDS: TRAMADOL HCL 50 MG TAB PO SCH ×4 (06:16→17:53)
[2018-12-24] MEDS: INSULIN LISPRO 100 UNIT/1 ML 3ML VIAL SQ SCH ×4 (07:30→21:17)
[2018-12-24] MEDS: FUROSEMIDE 40 MG TAB PO SCH ×2 (09:00→16:54)
[2018-12-24] MEDS: AZITHROMYCIN 500MG/NS 250 ML 250 ML IV SCH (09:00)
[2018-12-24] MEDS: SPIRONOLACTONE 25 MG TAB PO SCH ×2 (09:00→16:54)
[2018-12-24] MEDS: PREDNISONE 10 MG TAB PO SCH (09:00)
[2018-12-24] MEDS: METOPROLOL SUCCINATE 50 MG TAB XL PO SCH ×2 (09:00→16:54)
[2018-12-24] MEDS: METOLAZONE 5 MG TAB PO SCH (09:00)
[2018-12-24] MEDS: DOCUSATE SODIUM 100 MG CAP PO SCH (09:00)
[2018-12-24] MEDS: CLOPIDOGREL BISULFATE 75 MG TAB PO SCH (09:00)
[2018-12-24] MEDS: ALLOPURINOL 300 MG TAB PO SCH (09:00)
--- NOTE | 2018-12-24 15:53 | NUR ---
PAGED AND NOTIFIED THE BLOOD SUGAR GOT NEW ORDERS
[2018-12-24] MEDS ORDERED: INSULIN LISPRO 100 UNIT/1 ML 3ML VIAL SQ NR (16:00)
[2018-12-24] MEDS: WARFARIN SOD 2.5 MG TAB PO SCH (16:54)
--- NOTE | 2018-12-24 18:44 | NUR ---
PT RESTING ON BED BED BED SIDE REPORT GIVEN TO ONCOMING NURSE
--- NOTE | 2018-12-24 21:10 | NUR ---
MD called and notified of pt blood sugar, no new orders
[2018-12-24] MEDS: ATORVASTATIN 10 MG TAB PO SCH (21:17)
[2018-12-24] MEDS: MONTELUKAST SODIUM 10 MG TAB PO SCH (21:17)
[2018-12-24] MEDS: CEFTRIAXONE SOD 1 GM/NS 50 ML 50 ML IV SCH (21:17)
[2018-12-24] MEDS: PANTOPRAZOLE SOD 40 MG TABEC PO SCH (21:17)
[2018-12-25] VITALS (7 sets, daily range): BP systolic 124–192; BP diastolic 73–84
[2018-12-25] MEDS: TRAMADOL HCL 50 MG TAB PO SCH ×5 (00:19→23:56)
[2018-12-25] MEDS: METHYLPREDNISOLONE SOD SUCC 40 MG/ML VIAL 1ML IV SCH ×5 (00:19→23:56)
[2018-12-25] MEDS: SODIUM CHLORIDE 0.9% 1000ML 1,000 ML IV SCH ×2 (02:17→19:22)
[2018-12-25] MEDS: ALBUTEROL SULF 0.083% NEB SOLN 3 ML NEB NEB SCH ×5 (03:38→19:55)
[2018-12-25] MEDS: INSULIN LISPRO 100 UNIT/1 ML 3ML VIAL SQ SCH ×4 (07:30→20:45)
[2018-12-25] MEDS: IPRATROPIUM BROMIDE 0.02% 2.5 ML NEB NEB SCH ×3 (07:30→19:55)
[2018-12-25] MEDS: SPIRONOLACTONE 25 MG TAB PO SCH ×2 (09:00→17:00)
[2018-12-25] MEDS: METOLAZONE 5 MG TAB PO SCH (09:00)
[2018-12-25] MEDS: AZITHROMYCIN 500MG/NS 250 ML 250 ML IV SCH (09:00)
[2018-12-25] MEDS: FUROSEMIDE 40 MG TAB PO SCH ×2 (09:00→17:00)
[2018-12-25] MEDS: CLOPIDOGREL BISULFATE 75 MG TAB PO SCH (09:00)
[2018-12-25] MEDS: ALLOPURINOL 300 MG TAB PO SCH (09:00)
[2018-12-25] MEDS: PREDNISONE 10 MG TAB PO SCH (09:00)
[2018-12-25] MEDS: DOCUSATE SODIUM 100 MG CAP PO SCH (09:00)
[2018-12-25] MEDS: METOPROLOL SUCCINATE 50 MG TAB XL PO SCH ×2 (09:00→17:00)
--- NOTE | 2018-12-25 12:25 | NUR ---
TALKED DR BROWNLEE AND NOTIFIED BLOOD SUGAR GOT NEW ORDERS
[2018-12-25] MEDS ORDERED: INSULIN LISPRO 100 UNIT/1 ML 3ML VIAL SQ NR ×2 (12:45→17:30)
[2018-12-25 16:17] LABS: INR 1.76; PROTHROMBIN TIME 21.2 seconds (11.9-14.5)
[2018-12-25] MEDS: WARFARIN SOD 2.5 MG TAB PO SCH (17:00)
--- NOTE | 2018-12-25 17:10 | NUR ---
PAGED AND NOTIFIED BLOOD SUGAR TO DR BROWNLEE GOT NEW ORDERS
--- NOTE | 2018-12-25 19:17 | NUR ---
PT RESTING ON BED BED BED SIDE REPORT GIVEN TO ONCOMING NURSE
[2018-12-25] MEDS: ATORVASTATIN 10 MG TAB PO SCH (20:24)
[2018-12-25] MEDS: MONTELUKAST SODIUM 10 MG TAB PO SCH (20:24)
[2018-12-25] MEDS: PANTOPRAZOLE SOD 40 MG TABEC PO SCH (20:24)
[2018-12-25] MEDS: CEFTRIAXONE SOD 1 GM/NS 50 ML 50 ML IV SCH (22:03)
[2018-12-26] VITALS (7 sets, daily range): BP systolic 120–172; BP diastolic 49–82
[2018-12-26] MEDS: ALBUTEROL SULF 0.083% NEB SOLN 3 ML NEB NEB SCH ×6 (00:30→19:45)
[2018-12-26] MEDS: IPRATROPIUM BROMIDE 0.02% 2.5 ML NEB NEB SCH ×4 (00:30→19:45)
[2018-12-26] MEDS: METHYLPREDNISOLONE SOD SUCC 40 MG/ML VIAL 1ML IV SCH (05:20)
[2018-12-26] MEDS: TRAMADOL HCL 50 MG TAB PO SCH ×3 (05:20→18:16)
[2018-12-26 06:51] LABS: BASOPHILS % 0.3 % (0.0-1.0); HEMATOCRIT 32.3 % (38.2-49.6); HEMOGLOBIN 10.7 g/dL (14.0-18.0); LYMPHOCYTES # (AUTO) 0.7 (1.0-3.2); LYMPHOCYTES % 6.3 % (18.0-39.1); MEAN CORPUSCULAR HEMOGLOBIN 29.4 pg (28-32); MEAN CORPUSCULAR HGB CONC 33.1 g/dL (31-35); MEAN CORPUSCULAR VOLUME 88.7 fL (81-99); MONOCYTES # (AUTO) 0.4 (0.2-0.8); MONOCYTES % 3.4 % (4.4-11.3); NEUTROPHILS # (AUTO) 9.5 (2.1-6.9); NEUTROPHILS % 87.8 % (38.7-80.0); PLATELET COUNT 250 x10e3/uL (140-360); RED BLOOD COUNT 3.64 x10e6/uL (4.3-5.7)
[2018-12-26 07:30] LABS: ALBUMIN 2.5 g/dL (3.5-5.0); ALBUMIN/GLOBULIN RATIO 0.8 (0.8-2.0); CALCIUM 9.1 mg/dL (8.4-10.2); CREATININE, SERUM 1.54 mg/dL (0.72-1.25)
[2018-12-26] MEDS: INSULIN LISPRO 100 UNIT/1 ML 3ML VIAL SQ SCH ×4 (08:30→20:55)
[2018-12-26] MEDS: SODIUM CHLORIDE 0.9% 1000ML 1,000 ML IV SCH ×2 (08:42→20:44)
[2018-12-26] MEDS: AZITHROMYCIN 500MG/NS 250 ML 250 ML IV SCH (09:15)
[2018-12-26] MEDS: SPIRONOLACTONE 25 MG TAB PO SCH ×2 (09:16→16:53)
[2018-12-26] MEDS: PREDNISONE 10 MG TAB PO SCH (09:16)
[2018-12-26] MEDS: DOCUSATE SODIUM 100 MG CAP PO SCH (09:16)
[2018-12-26] MEDS: FUROSEMIDE 40 MG TAB PO SCH ×2 (09:16→16:52)
[2018-12-26] MEDS: CLOPIDOGREL BISULFATE 75 MG TAB PO SCH (09:16)
[2018-12-26] MEDS: ALLOPURINOL 300 MG TAB PO SCH (09:17)
[2018-12-26] MEDS: METOPROLOL SUCCINATE 50 MG TAB XL PO SCH ×2 (09:17→16:53)
[2018-12-26] MEDS: METOLAZONE 5 MG TAB PO SCH (09:17)
--- NOTE | 2018-12-26 13:41 | NUR ---
Dressed left forearm skin tear with adeptic, non-stick gauze and me-fix tape. Patient tolerated well.
[2018-12-26] MEDS: WARFARIN SOD 2.5 MG TAB PO SCH (16:52)
[2018-12-26] MEDS: ATORVASTATIN 10 MG TAB PO SCH (20:44)
[2018-12-26] MEDS: MONTELUKAST SODIUM 10 MG TAB PO SCH (20:44)
[2018-12-26] MEDS: CEFTRIAXONE SOD 1 GM/NS 50 ML 50 ML IV SCH (20:44)
[2018-12-26] MEDS: PANTOPRAZOLE SOD 40 MG TABEC PO SCH (20:44)
--- NOTE | 2018-12-26 20:55 | NUR ---
high BS [address] Peralta. New order to give 36 units. continue to monitor closely
[2018-12-27] VITALS (7 sets, daily range): BP systolic 138–166; BP diastolic 72–86
[2018-12-27] MEDS: ALBUTEROL SULF 0.083% NEB SOLN 3 ML NEB NEB SCH ×6 (00:15→20:00)
[2018-12-27] MEDS: IPRATROPIUM BROMIDE 0.02% 2.5 ML NEB NEB SCH ×4 (00:15→20:00)
[2018-12-27] MEDS: TRAMADOL HCL 50 MG TAB PO SCH ×4 (00:34→18:01)
[2018-12-27] MEDS ORDERED: KETOROLAC TROMETHAMINE 30 MG/ML VIAL IV STA (06:04)
[2018-12-27] MEDS: INSULIN LISPRO 100 UNIT/1 ML 3ML VIAL SQ SCH ×4 (07:36→21:00)
--- NOTE | 2018-12-27 07:37 | Diagnostic Imaging Report ---
Exam: Left wrist radiographs-2 views History: Left wrist pain. Comparison: None. Findings: There is mild widening of scapholunate interval, measuring up to 4 mm, suggestive of prior ligamentous injury. There is mild proximal migration of the capitate. 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 No evidence of distal radioulnar degenerative changes. There is an old traumatic deformity of the radial styloid. No evidence of acute fracture or malalignment. There are moderate degenerative changes at the first carpometacarpal joint. 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 No acute osseous abnormality. Signed by: Dr. Angeles Manriquez MD on 12/27/2018 7:33 AM
[2018-12-27] MEDS: DOCUSATE SODIUM 100 MG CAP PO SCH (08:28)
[2018-12-27] MEDS: CLOPIDOGREL BISULFATE 75 MG TAB PO SCH (08:28)
[2018-12-27] MEDS: FUROSEMIDE 40 MG TAB PO SCH ×2 (08:29→17:26)
[2018-12-27] MEDS: SPIRONOLACTONE 25 MG TAB PO SCH ×2 (08:29→17:25)
[2018-12-27] MEDS: PREDNISONE 10 MG TAB PO SCH (08:29)
[2018-12-27] MEDS: ALLOPURINOL 300 MG TAB PO SCH (08:29)
[2018-12-27] MEDS: METOLAZONE 5 MG TAB PO SCH (08:30)
[2018-12-27] MEDS: METOPROLOL SUCCINATE 50 MG TAB XL PO SCH ×2 (08:30→17:26)
[2018-12-27] MEDS: SODIUM CHLORIDE 0.9% 1000ML 1,000 ML IV SCH (08:42)
[2018-12-27] MEDS: AZITHROMYCIN 500MG/NS 250 ML 250 ML IV SCH (08:42)
--- NOTE | 2018-12-27 14:45 | NUR ---
JUANCARLOS SPOKE TO DR. BROWNLEE REGARDING PATIENT PLAN OF CARE AND DISCHARGE PLAN. MD AWARE THAT PATIENT REQUESTING TO LEAVE BUT BEDSIDE NURSE AND PHYSICAL THERAPY RECOMMENDS IT IS UNSAFE. PER MD IF PATIENT OKAY WITH [facility] FACILITY PLACE ORDER FOR SNF EVAL. IF PATIENT WANTS TO RETURN HOME THEN SET UP HOME HEALTH PT/OT & SN EVAL. MY JUANCARLOS RITTER NOTIFIED. ANTICIPATED DISCHARGE DATE TOMORROW.
--- NOTE | 2018-12-27 16:16 | NUR ---
SPOKE WITH PT HE IS AGREEABLE TO GO TO [facility], FAXED CLINICALS
--- NOTE | 2018-12-27 16:19 | NUR ---
Nutrition Screen Note RD Recommendation for Physician: - Continue current diet - Insulin and BG management per MD Plan of Care: RD following, monitoring for tolerance and adequacy Nutrition reason for involvement: LOS Primary Diagnose(s): generalized weakness, PNA, DM 2 PMH: HTN, gout, ARF, CHF, gout, cholecystectomy Ht: 70 in Wt: 253 lb BMI: 36.3 kg/m2 IBW: [address] Assessment: (12/27) 83 YOM admitted for PNA and weakness, seen today for LOS. Pt discussed during am rounds, possible discharge to SNF soon per CM. Pt reports good appetite and po intake currently and CLINICAL MEDICAL ASSISTANT, states decrease in po x 2 days CLINICAL MEDICAL ASSISTANT. Pt reports UBW of 250#, no wt loss noted. Pt denies any N/V/C/D or difficulties chewing or swallowing. Chart reviewed. Labs and meds reviewed, elevated BG trend noted- pt with DM, active infection on abx and currently on steroids. Will monitor and continue to follow. Current Diet: 1800 ADA Malnutrition Evaluation (12/27/18) The patient does not meet criteria for a specified degree of malnutrition at this time. Will re-evaluate at follow-up as appropriate. Diet Education Needs Assessment: Diet education not indicated. Nutrition Care Level: Low Signed: Iona Domínguez RD, LD, [facility]
[2018-12-27] MEDS: WARFARIN SOD 2.5 MG TAB PO SCH (17:25)
[2018-12-27] MEDS: PANTOPRAZOLE SOD 40 MG TABEC PO SCH (20:26)
[2018-12-27] MEDS: MONTELUKAST SODIUM 10 MG TAB PO SCH (20:26)
[2018-12-27] MEDS: CEFTRIAXONE SOD 1 GM/NS 50 ML 50 ML IV SCH (20:26)
[2018-12-27] MEDS: ATORVASTATIN 10 MG TAB PO SCH (20:26)
[2018-12-28] VITALS: BP 142/76
[2018-12-28] MEDS: IPRATROPIUM BROMIDE 0.02% 2.5 ML NEB NEB SCH ×3 (00:15→11:00)
[2018-12-28] MEDS: ALBUTEROL SULF 0.083% NEB SOLN 3 ML NEB NEB SCH ×4 (00:15→11:00)
[2018-12-28] MEDS: SODIUM CHLORIDE 0.9% 1000ML 1,000 ML IV SCH (01:12)
[2018-12-28] MEDS: TRAMADOL HCL 50 MG TAB PO SCH ×3 (01:12→13:01)
[2018-12-28 04:00] VITALS: BP 154/74
[2018-12-28 05:58] LABS: INR 1.8; PROTHROMBIN TIME 21.5 seconds (11.9-14.5)
--- NOTE | 2018-12-28 06:05 | NUR ---
PAGED DR MIRANDA FOR CONSULTATION LEFT HAND PAIN
--- NOTE | 2018-12-28 06:20 | NUR ---
ATTEMPTED TO PAGED DR AUGUSTIN FOR CONSULTATION TWICE BUT UNABLE TO REACH DR AUGUSTIN OR LEAVE MASSAGE.
--- NOTE | 2018-12-28 07:00 | NUR ---
BEDSIDE SHIFT REPORT FROM NIGHT RN. PT DENIES NEEDS AT THIS TIME.
[2018-12-28 08:30] VITALS: BP 154/72
[2018-12-28 09:00] VITALS: BP_SYST 154; BP_DIAS 72; BP_DIAS 74
[2018-12-28] MEDS: SPIRONOLACTONE 25 MG TAB PO SCH (09:05)
[2018-12-28] MEDS: DOCUSATE SODIUM 100 MG CAP PO SCH (09:06)
[2018-12-28] MEDS: FUROSEMIDE 40 MG TAB PO SCH (09:06)
[2018-12-28] MEDS: CLOPIDOGREL BISULFATE 75 MG TAB PO SCH (09:07)
[2018-12-28] MEDS: METOLAZONE 5 MG TAB PO SCH (09:07)
[2018-12-28] MEDS: PREDNISONE 10 MG TAB PO SCH (09:08)
[2018-12-28] MEDS: ALLOPURINOL 300 MG TAB PO SCH (09:08)
[2018-12-28] MEDS: METOPROLOL SUCCINATE 50 MG TAB XL PO SCH (09:09)
[2018-12-28] MEDS: AZITHROMYCIN 500MG/NS 250 ML 250 ML IV SCH (09:15)
[2018-12-28] MEDS: INSULIN LISPRO 100 UNIT/1 ML 3ML VIAL SQ SCH ×2 (09:24→13:02)
--- NOTE | 2018-12-28 10:46 | NUR ---
GOT ORDER FOR REHAB WENT AND SPOKE WITH PT, HE STATES HE HAS BEEN TO [facility] BEFORE AND REALLY PREFERS TO GO THERE. GOT AUTH FOR HIM TO GO TO ROOM [address] JEF CLAUDIO [address] [facility], [id number] CALL REPORT TO [phone]. RTF COMPLETED AND GIVEN TO NURSE.
--- NOTE | 2018-12-28 11:00 | NUR ---
STATIC WRIST BRACE GIVEN TO PT, PER DR. MIRANDA. TEACHING GIVEN. PT VERBALIZED UNDERSTANDING.
[2018-12-28 12:00] VITALS: BP 146/69
--- NOTE | 2018-12-28 12:30 | NUR ---
PATIENT IS OKAY TO DISCHARGE TO [facility] PER DR. BROWNLEE
--- NOTE | 2018-12-28 12:35 | NUR ---
TRANSFER REPORT GIVEN TO ABHAY VALDES FROM [facility] [place]. PER ABHAY VALDES, LEAVE THE IV FOR FUTURE USE.
--- NOTE | 2018-12-28 14:15 | NUR ---
PT TRANSFERRED SAFELY TO [facility]. PT DENIED NEEDS AT THIS TIME.
--- NOTE | 2018-12-28 14:30 | Consultation ---
DATE OF CONSULTATION: CHIEF COMPLAINT: Left hand and wrist pain and swelling. HISTORY OF PRESENT ILLNESS: The patient is an 83-year-old [id number] male, who was admitted on December 21 for weakness and other assorted complaints. During his hospital admission, his left hand and wrist were noted to be swollen and painful and consultation is requested. 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 He states that over the years he had numerous "sprains" of the left hand and wrist, but denies any fracture or dislocations. He states that he never sought any medical attention for these "sprains." He states that he was recently discharged from [facility] where he was there for almost two months because of an inability to walk. PHYSICAL EXAMINATION: On pertinent physical exam, the patient is afebrile. The vital signs are stable. The left hand and wrist are swollen. There are no signs of erythema and no signs of cellulitis nor lymphangitis. The patient is most tender over the dorsal aspect of the left wrist directly over the scapholunate interval. The range of motion of the wrist is diminished secondary to pain. There is also significant pain with axial loading of the left thumb on to the CMC joint as well. The neurovascular exam of the hand and fingers is grossly normal and there are no deficits of function noted. IMAGING DATA: The patient had radiograph performed which reveals signs of scapholunate advanced collapse with scapholunate widening and proximal migration of the capitate. 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 IMPRESSION: Scapholunate advanced collapse. PLAN: Given that the patient is retired, this is his nondominant hand and he does not require stressful use of the hand, I would recommend that we place the patient in a wrist brace, allow him to elevate it and use anti-inflammatory medications as tolerated to decrease the symptomatology. When the patient is transferred to [facility], they can do an evaluation and perform some OT and other modalities to try to decrease the pain and the swelling. I do not believe that he is a candidate right now for any type of wrist replacement surgery or stabilization procedure as they are not indicated. Thank you for allowing me to participate in the care of your patient. MD HAI Kim/JOHNL /[id number]
--- NOTE | 2018-12-31 07:41 | Discharge Summary ---
DISCHARGE DIAGNOSES: 1. Pneumonia. 2. Weakness. 3. Gout. HISTORY OF PRESENT ILLNESS AND HOSPITAL COURSE: The patient is a gentleman with multiple comorbidities, who presented with some cough and weakness, where he was found to have pneumonia, so he was brought in and placed on IV antibiotics and this resolved pretty quickly as far as his symptoms. His white count initially was 18,000, did improve all the way to 10,000. He started having some evidence of left hand swelling and pain, presumed to be gout, so he was placed on medication for that, which did improve. His x-ray did show significant advanced scapholunate degeneration changes. He was seen by Dr. Sumeet Yeh, who stated that the patient will be treated conservatively. Please see his note for full details. At the time of discharge, the patient was really weak and did not feel comfortable going home, so the patient really wanted to go to [facility], so this was arranged. The patient was able to be discharged home in good condition. Please see hospital chart for full details. MD MARLENI Villagomez/DILLAN /[id number]
== END 2018-12-28 14:20 | DRG 871 ==
LOC: ER 16:08 → ERHOLD 12-22 02:05 → MED/SURG2 12-22 02:14
PROVIDERS: ADMIT Internal Medicine; ATTEND Internal Medicine
DX: A41.9 Sepsis, unspecified organism (principal); J18.9 Pneumonia, unspecified organism; E11.9 Type 2 diabetes mellitus without complications; Z88.0 Allergy status to penicillin; E78.5 Hyperlipidemia, unspecified; I50.9 Heart failure, unspecified; Z86.718 Personal history of other venous thrombosis and embolism; Z79.01 Long term (current) use of anticoagulants; M10.9 Gout, unspecified; I11.0 Hypertensive heart disease with heart failure; Z82.49 Family history of ischemic heart disease and other diseases of the circulatory system; E66.01 Morbid (severe) obesity due to excess calories; Z68.36 Body mass index [BMI] 36.0-36.9, adult; M19.032 Primary osteoarthritis, left wrist; G47.33 Obstructive sleep apnea (adult) (pediatric); Z79.4 Long term (current) use of insulin
CPT/HCPCS: 36415; 71045; 80048; 80053; 81001; 82550; 82553; 82948; 83735; 83880; 84443; 84484; 85025; 85610; 85730; 87040; 87070; 87086; 87205; 93005; 94640; 96372; 99284; J0456; J0696; J1885; J2920; J2930; J7030; J7512

== ENCOUNTER → 2019-01-30 | Outpatient (CLI) | payer MEDICARE, BC ==
--- NOTE | 2019-01-30 16:19 | Diagnostic Imaging Report ---
EXAMINATION: PA and lateral views of the chest. COMPARISON: 12/22/2018 CLINICAL HISTORY: Shortness of breath DISCUSSION: Left subclavian approach implantable cardiac device body and leads and valvular prosthesis are unchanged. Interval improvement in aeration of the right lung base relative to 12/22/2018. Small amount of residual linear opacity persists laterally, which may represent residual atelectasis or postinflammatory fibrotic change. No new airspace consolidation, pleural effusion, or pneumothorax. Stable cardiomediastinal contour with atherosclerotic calcification of the thoracic aorta. No acute osseous abnormality. Posttraumatic deformity of the posterior right fourth rib. IMPRESSION: Stable cardiomediastinal contour with interval resolution of pulmonary venous congestion. Improved aeration of the right lung base with minimal residual atelectasis or fibrotic change. No new consolidations. Signed by: Dr. Rancho Pantoja M.D. on 01/30/2019 4:16 PM
== END ==
LOC: RAD 15:35
PROVIDERS: ATTEND Internal Medicine Interventional Cardiology
DX: R06.02 Shortness of breath (principal)
CPT/HCPCS: 71046

== ENCOUNTER 2019-05-20 20:30 | Emergency (ER) | payer MEDICARE, BC ==
[~2019-05-20] VITALS: Ht 177.8 cm; Wt 114.8 kg
--- OUTSIDE RECORDS SUMMARY | 2019-05-20 20:33 | XMS REPORT | Continuity of Care Document ---
Author Author [employer] Organization [employer] Address Unknown Phone Unavailable Care Team Providers Care Enrolled Nurse Name Role Phone [facility] [employer] Information [employer] Unavailable Unavailable Problems Problem Status Onset Date Classification Date Reported Comments Source Unspecified asthma, uncomplicated 12/14/2017 03/15/2018 [facility] J98.9 - "RESPIRATORY DISORDER, UNSPECIF" Active 10/23/2016 [facility] FOLLOW UP Active 10/13/[address] [facility] TAVR 30 DAY FOLLOW UP Active 10/13/[address] [facility] PRE ADMIT/*GEN ANESTHESIA*/TAVR CASE/*TT Active 10/08/[address] [facility] AORTIC STENOSIS Active 10/08/[address] [facility] AORTIC STENOSIS/ DYSPEA /CARDIAC MURMUR Active 09/29/[address] [facility] TAVR Active 08/31/[address] [facility] J44.9 - CHRONIC OBSTRUCTIVE PULMONARY [facility] 786.05 - SHORTNESS OF BR Active 08/08/2012 [facility] [place] Acute laryngopharyngitis (disorder) Resolved Problem 03/15/2018 [facility] [place] Aortic stenosis with doming (disorder) Active Problem 03/15/2018 [facility] [place] Diabetes mellitus type 2 (disorder) Active Problem 03/15/2018 [facility] [place] History of aortic valve replacement (situation) Active Problem 03/15/2018 [facility] [place] Hypertensive disorder, systemic arterial (disorder) Resolved Problem 03/15/2018 [facility] [place] Dyspnea, unspecified 03/15/2018 [facility] [place] Disorders of diaphragm 03/15/2018 [facility] [place] ENCNTR FOR GENERAL ADULT MEDICAL EXAM W/ Active [facility] NONRHEUMATIC AORTIC (VALVE) STENOSIS Active [facility] DYSPNEA, UNSPECIFIED Active 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 Medications Medication Details Route Status Patient Instructions Ordering Provider Order Date Source amLODIPine 10 mg oral tablet 10 mg=1 tab, PO, Daily, # 30 tab, 11 Refill(s) Active 11/09/[address] [facility] 24 HR Metformin hydrochloride 1000 MG Extended Release Tablet 1,000 mg=1 tab, PO, BID, 0 Refill(s) Active 10/19/[address] [facility] ezetimibe 10 MG / Simvastatin 40 MG Oral Tablet [Vytorin 10/40] 1 tab, PO, Daily, 0 Refill(s) Active 10/19/[address] [facility] metoprolol tartrate 12.5 mg, 1 tab, Route: PO, Drug form: TAB, BID, Dosing Weight 121.818, kg, Start date: 10/11/16 17:00:00 [employer], Duration: 30 day, Stop date: 11/10/16 9:00:00 CSTNotes: (Same as: Lopressor) 12.5mg=1/4 X 50 mg tab. Inactive 10/11/[address] [facility] metoprolol tartrate 25 mg oral tablet 12.5 mg=0.5 tab, PO, BID, # 15 tab, 1 Refill(s) Active 10/11/[address] [facility] pantoprazole 40 mg oral enteric coated tablet 40 mg=1 tab, PO, Daily, # 30 tab, 0 Refill(s) Active 10/11/[address] [facility] Furosemide 40 MG Oral Tablet 40 mg=1 tab, PO, BID, # 60 tab, 3 Refill(s) Active 10/11/[address] [facility] clopidogrel 75 mg oral tablet 75 mg=1 tab, PO, Daily, # 90 tab, 0 Refill(s) Active 10/11/[address] [facility] ezetimibe 10 mg oral tablet 10 mg=1 tab, PO, Daily, 0 Refill(s) Active 10/11/[address] [facility] Hydrochlorothiazide 25 MG Oral Tablet 25 mg=1 tab, PO, Daily, # 30 tab, 1 Refill(s) Active 10/11/[address] [facility] simvastatin 40 mg oral tablet 40 mg=1 tab, PO, Bedtime, # 30 tab, 0 Refill(s) Active 10/11/[address] [facility] valsartan 80 mg oral tablet 160 mg=2 tab, PO, Daily, # 30 tab, 0 Refill(s) Active 10/11/[address] [facility] tolterodine 2 mg oral tablet 4 mg=2 tab, PO, Daily, # 30 tab, 0 Refill(s) Active 10/11/[address] [facility] amLODIPine 5 mg oral tablet 5 mg=1 tab, PO, Daily, # 30 tab, 3 Refill(s) Active 10/11/[address] [facility] Hydralazine 10 mg, 0.5 mL, Route: IV, Drug form: INJ, Q4H, Dosing Weight 121.818, kg, PRN Elevated BP, Start date: 10/11/16 2:32:00 [employer], Duration: 30 day, Stop date: 11/10/16 2:31:00 CSTNotes: (Same as: Apresoline) Push over 5 minutes Inactive 10/11/[address] [facility] Hydralazine 10 mg, 0.5 mL, Route: IVP, Drug form: INJ, Q6H, Dosing Weight 121.818, kg, PRN Other -See Comment, for SBP > 160, Start date: 10/10/16 23:57:00 [employer], Duration: 30 day, Stop date: 11/09/16 23:56:00 [employer] Notes: (Same as: Apresoline) Push over 5 minutes No Longer Active 10/11/[address] [facility] Insulin, Aspart, Human 1 unit, 0.01 mL, Route: SUB-Q, Drug form: SOLN, Bedtime, Dosing Weight 121.818, kg, PRN Blood Glucose Results, Start date: 10/10/16 21:46:00 [employer], Duration: 30 day, Stop date: 11/09/16 21:45:00 CSTNotes: Roll in palms of hands gently; Do not shake vigorously. (Same as: NovoLOG) "single patient use only" WASTE: F/P - Black; E - Municipal Trash Bin Stable for 28 days at room temperature. Expires in days from Date No Longer Active 10/11/[address] [facility] Dextrose 50% Syringe 12.5 gm, 25 mL, Route: IVP, Drug Form: INJ, Dosing Weight 121.818, kg, PRN, PRN Blood Glucose Results, Start date: 10/10/16 21:46:00 [employer], Duration: 30 day, Stop date: 11/09/16 21:45:00 [employer] No Longer Active 10/11/[address] [facility] Glucagon 1 mg, Route: IM, Drug form: PDR/INJ, PRN, Dosing Weight 121.818, kg, PRN Blood Glucose Results, Start date: 10/10/16 21:46:00 [employer], Duration: 30 day, Stop date: 11/09/16 21:45:00 [employer] No Longer Active 10/11/[address] [facility] Singulair 10 mg, 1 tab, Route: PO, Drug form: TAB, Bedtime, Dosing Weight 121.818, kg, Start date: 10/10/16 21:00:00 [employer], Duration: 30 day, Stop date: 11/08/16 21:00:00 CSTNotes: (Same as:Singulair) No Longer Active 10/11/[address] [facility] Tylenol 650 mg, 2 tab, Route: PO, Drug form: TAB, Q6H, Dosing Weight 121.818, kg, PRN Pain 1-3/Temp > 100.4 F, Start date: 10/10/16 16:55:00 [employer], Duration: 30 day, Stop date: 11/09/16 16:54:00 CSTNotes: Do not exceed 4 gm/day. (Same as: Tylenol) No Longer Active 10/10/[address] [facility] Insulin, Aspart, Human 2 unit, 0.02 mL, Route: SUB-Q, Drug form: SOLN, TID-Before Meals, Dosing Weight 121.818, kg, PRN Blood Glucose Results, Start date: 10/10/16 11:45:00 [employer], Duration: 30 day, Stop date: 11/09/16 11:44:00 CSTNotes: Roll in palms of hands gently; Do not shake vigorously. (Same as: NovoLOG) "single patient use only" WASTE: F/P - Black; E - Municipal Trash Bin Stable for 28 days at room temperature. Expires in days from Date No Longer Active 10/10/[address] [facility] Dextrose 50% Syringe 25 mL, Route: IVP, Dosing Weight 121.818, kg, PRN, PRN Blood Glucose Results, Start date: 10/10/16 11:45:00 [employer], Duration: 30 day, Stop date: 11/09/16 11:44:00 [employer] Inactive 10/10/[address] [facility] Glucagon 1 mg, Route: IM, PRN, Dosing Weight 121.818, kg, PRN Blood Glucose Results, Start date: 10/10/16 11:45:00 [employer], Duration: 30 day, Stop date: 11/09/16 11:44:00 [employer] Inactive 10/10/[address] [facility] Insulin, Aspart, Human 6 unit, 0.06 mL, Route: SUB-Q, Drug form: SOLN, TID-Before Meals, Dosing Weight 121.818, kg, PRN Blood Glucose Results, Start date: 10/10/16 11:21:00 [employer], Duration: 30 day, Stop date: 11/09/16 11:20:00 CSTNotes: Roll in palms of hands gently; Do not shake vigorously. (Same as: NovoLOG) "single patient use only" WASTE: F/P - Black; E - Municipal Trash Bin Stable for 28 days at room temperature. Expires in days from Date Inactive 10/10/[address] [facility] Dextrose 50% Syringe 12.5 gm, 25 mL, Route: IVP, Drug Form: INJ, Dosing Weight 121.818, kg, PRN, PRN Blood Glucose Results, Start date: 10/10/16 11:21:00 [employer], Duration: 30 day, Stop date: 11/09/16 11:20:00 [employer] No Longer Active 10/10/[address] [facility] Glucagon 1 mg, Route: IM, Drug form: PDR/INJ, PRN, Dosing Weight 121.818, kg, PRN Blood Glucose Results, Start date: 10/10/16 11:21:00 [employer], Duration: 30 day, Stop date: 11/09/16 11:20:00 [employer] No Longer Active 10/10/[address] [facility] Amlodipine 5 mg, 1 tab, Route: PO, Drug form: TAB, Daily, Dosing Weight 121.818, kg, Start date: 10/10/16 9:00:00 [employer], Duration: 30 day, Stop date: 11/08/16 9:00:00 CSTNotes: (Same as: Norvasc) No Longer Active 10/10/[address] [facility] Diovan 160 mg, 2 tab, Route: PO, Drug form: TAB, Daily, Start date: 10/10/16 9:00:00 [employer], Duration: 30 day, Stop date: 11/08/16 9:00:00 CSTNotes: Same as Diovan No Longer Active 10/10/[address] [facility] clopidogrel 75 mg, 1 tab, Route: PO, Drug form: TAB, Daily, Dosing Weight 121.818, kg, Start date: 10/10/16 9:00:00 [employer], Duration: 30 day, Stop date: 11/08/16 9:00:00 CSTNotes: (Same As: Plavix) No Longer Active 10/10/[address] [facility] aspirin 81 mg tablet, enteric coated 81 mg, 1 tab, Route: PO, Drug form: ECTAB, Daily, Dosing Weight 121.818, kg, Start date: 10/10/16 9:00:00 [employer], Duration: 30 day, Stop date: 11/08/16 9:00:00 CSTNotes: Do not crush or chew. (Same As: Ecotrin) No Longer Active 10/10/[address] [facility] hydrochlorothiazide 25 mg oral tablet 25 mg, 1 tab, Route: PO, Drug form: TAB, Daily, Start date: 10/10/16 9:00:00 [employer], Duration: 30 day, Stop date: 11/08/16 9:00:00 CSTNotes: (Same as: Hydrodiuril) With food. No Longer Active 10/10/[address] [facility] VESICARE 5 mg, Route: PO, Drug form: TAB, Daily, Dosing Weight 121.818, kg, Start date: 10/10/16 9:00:00 [employer], Duration: 30 day, Stop date: 11/08/16 9:00:00 [employer] No Longer Active 10/10/[address] [facility] Januvia 100 mg, 2 tab, Route: PO, Drug form: TAB, Daily, Dosing Weight 121.818, kg, Start date: 10/10/16 9:00:00 [employer], Duration: 30 day, Stop date: 11/08/16 9:00:00 CSTNotes: Same as Januvia Non-Formulary Item No Longer Active 10/10/[address] [facility] Omeprazole 20 mg, Route: PO, Drug form: DRC, Daily, Dosing Weight 121.818, kg, Start date: 10/10/16 9:00:00 [employer], Duration: 30 day, Stop date: 11/08/16 9:00:00 [employer] No Longer Active 10/10/[address] [facility] montelukast 10 mg, 1 tab, Route: PO, Drug form: TAB, Daily, Dosing Weight 121.818, kg, Start date: 10/10/16 9:00:00 [employer], Duration: 30 day, Stop date: 11/08/16 9:00:00 CSTNotes: (Same as:Singulair) Inactive 10/10/[address] [facility] Hydrochlorothiazide 25 MG / valsartan 160 MG Oral Tablet 1 tab, Route: PO, Drug Form: TAB, Dosing Weight 121.818, kg, Daily, Start date: 10/10/16 9:00:00 [employer], Duration: 30 day, Stop date: 11/08/16 9:00:00 [employer] No Longer Active 10/10/[address] [facility] glimepiride 4 mg, 2 tab, Route: PO, Drug form: TAB, Daily, Dosing Weight 121.818, kg, Start date: 10/10/16 9:00:00 [employer], Duration: 30 day, Stop date: 11/08/16 9:00:00 CSTNotes: (Same as: Amaryl) No Longer Active 10/10/[address] [facility] Protonix 40 mg, 1 tab, Route: PO, Drug form: ECTAB, Daily, Start date: 10/10/16 9:00:00 [employer], Duration: 30 day, Stop date: 11/08/16 9:00:00 CSTNotes: Tablet should not be chewed or crushed. (Same as: Protonix) No Longer Active 10/10/[address] [facility] ezetimibe 10 MG / Simvastatin 40 MG Oral Tablet 1 tab, Route: PO, Drug Form: TAB, Dosing Weight 121.818, kg, Daily, Start date: 10/10/16 9:00:00 [employer], Duration: 30 day, Stop date: 11/08/16 9:00:00 [employer] No Longer Active 10/10/[address] [facility] Detrol LA 4 mg, 2 tab, Route: PO, Drug form: TAB, Daily, Start date: 10/10/16 9:00:00 [employer], Stop date: 11/08/16 9:00:00 CSTNotes: (Same As: Detrol) No Longer Active 10/10/[address] [facility] Clonidine Hydrochloride 0.2 MG Oral Tablet 0.2 mg, 2 tab, Route: PO, Drug form: TAB, Daily, Dosing Weight 121.818, kg, Start date: 10/10/16 9:00:00 [employer], Duration: 30 day, Stop date: 11/08/16 9:00:00 CSTNotes: (Same As: Catapres) Inactive 10/10/[address] [facility] Zetia 10 mg, 1 tab, Route: PO, Drug form: TAB, Daily, Start date: 10/10/16 9:00:00 [employer], Duration: 30 day, Stop date: 11/08/16 9:00:00 CSTNotes: (Same as: Zetia) No Longer Active 10/10/[address] [facility] Zocor 40 mg, 1 tab, Route: PO, Drug form: TAB, Bedtime, Start date: 10/09/16 21:00:00 [employer], Duration: 30 day, Stop date: 11/07/16 21:00:00 CSTNotes: (Same as: Zocor) No Longer Active 10/10/[address] [facility] Furosemide 40 MG Oral Tablet 40 mg, 1 tab, Route: PO, Drug form: TAB, BID, Dosing Weight 121.818, kg, Start date: 10/09/16 17:00:00 [employer], Duration: 30 day, Stop date: 11/08/16 9:00:00 CSTNotes: (Same as: Lasix) May cause GI upset. Give with food or milk. No Longer Active 10/09/[address] [facility] potassium chloride 10 mEq, 50 mL, Route: IVPB, Drug form: INJ, PRN, Dosing Weight 121.818, kg, PRN Abnormal Lab Result, For NON-ICU Patients Only, Start date: 10/09/16 14:52:00 [employer], Duration: 30 day, Stop date: 11/08/16 14:51:00 CSTNotes: (Same as: KCL) Infuse over 2 hours. No Longer Active 10/09/[address] [facility] Calcium Gluconate 3 gm, 30 mL, Route: IVPB, PRN, Dosing Weight 121.818, kg, PRN Abnormal Lab Result, For NON-ICU Patients Only., Start date: 10/09/16 14:52:00 [employer], Duration: 30 day, Stop date: 11/08/16 14:51:00 CSTNotes: WASTE: F/P - Sink; E - Municipal Trash Bin No Longer Active 10/09/[address] [facility] Magnesium Oxide 800 mg, 2 tab, Route: PO, Drug form: TAB, PRN, Dosing Weight 121.818, kg, PRN Abnormal Lab Result, For NON-ICU Patients Only., Start date: 10/09/16 14:52:00 [employer], Duration: 30 day, Stop date: 11/08/16 14:51:00 CSTNotes: (Same as: Mag-Ox 400) Magnesium oxide [id number] elemental magnesium Dose=____mg magnesium oxide (___mg elemental magnesium) No Longer Active 10/09/[address] [facility] Magnesium Sulfate 2 gm, 50 mL, Route: IVPB, Drug form: INJ, PRN, Dosing Weight 121.818, kg, PRN Abnormal Lab Result, For NON-ICU Patients Only., Start date: 10/09/16 14:52:00 [employer], Duration: 30 day, Stop date: 11/08/16 14:51:00 CSTNotes: WASTE: F/P - Sink; E - Municipal Trash Bin No Longer Active 10/09/[address] [facility] sodium phosphate + sodium chloride 0.9% INJ 250 mL 30 mmol, 10 mL, Route: IVPB, PRN, Dosing Weight 121.818, kg, PRN Abnormal Lab Result, For NON-ICU Patients Only., Start date: 10/09/16 14:52:00 [employer], Duration: 30 day, Stop date: 11/08/16 14:51:00 [employer] No Longer Active 10/09/[address] [facility] potassium phosphate + sodium chloride 0.9% INJ 250 mL 30 mmol, 10 mL, Route: IVPB, PRN, Dosing Weight 121.818, kg, PRN Abnormal Lab Result, For NON-ICU Patients Only., Start date: 10/09/16 14:52:00 [employer], Duration: 30 day, Stop date: 11/08/16 14:51:00 CSTNotes: (Same as: K Phosphate.) 1 mMol phoshate has 1.47 mEq potassium Infuse over 4 hours No Longer Active 10/09/[address] [facility] potassium phosphate-sodium phosphate 250 mg-280 mg-160 mg oral powder for reconstitution 2 pkt, Route: PO, Drug Form: PDR/REC, Dosing Weight 121.818, kg, PRN, PRN Abnormal Lab Result, For NON-ICU Patients Only, Start date: 10/09/16 14:52:00 [employer], Duration: 30 day, Stop date: 11/08/16 14:51:00 CSTNotes: (Same as: Phos-NaK) Each 1.5 gm pkt has 250mg phosphorous. Mix w/2.5oz water and stir. No Longer Active 10/09/[address] [facility] Dexamethasone 4 mg, 0.4 mL, Route: IVP, Drug form: INJ, ONCE, Dosing Weight 121.818, kg, PRN Nausea & Vomiting, Start date: 10/09/16 11:57:00 CSTNotes: MEDICATION WASTE Product Size: 10 mg Product Wasted: ___ mg Inactive 10/09/[address] [facility] Ondansetron 4 mg, 2 mL, Route: IVP, Drug form: INJ, ONCE, Dosing Weight 121.818, kg, PRN Nausea & Vomiting, Start date: 10/09/16 11:57:00 CSTNotes: (Same as: Zofran) MEDICATION WASTE Product Size: 4 mg Product Wasted: ___ mg Inactive 10/09/[address] [facility] Promethazine 6.25 mg, 0.13 mL, Route: IVPB, Drug form: INJ, ONCE, Dosing Weight 121.818, kg, PRN Nausea & Vomiting, Start date: 10/09/16 11:57:00 CSTNotes: (Same as: Phenergan) Inactive 10/09/[address] [facility] Fentanyl 50 microgram, 1 mL, Route: IVP, Drug form: INJ, Q5Min, Dosing Weight 121.818, kg, PRN Pain Score 7-10, Priority: Routine, Start date: 10/09/16 11:57:00 [employer], Duration: 2 doses or times, Stop date: Limited # of timesNotes: (Same as: Sublimaze) Preservative free. Inactive 10/09/[address] [facility] Hydralazine 10 mg, 0.5 mL, Route: IVP, Drug form: INJ, Q20Min, Dosing Weight 121.818, kg, PRN Elevated BP, Start date: 10/09/16 11:57:00 [employer], Duration: 2 doses or times, Stop date: Limited # of timesNotes: (Same as: Apresoline) Push over 5 minutes Inactive 10/09/[address] [facility] Labetalol 10 mg, 2 mL, Route: IVP, Drug form: INJ, Q5Min, Dosing Weight 121.818, kg, PRN Elevated BP, Start date: 10/09/16 11:57:00 [employer], Duration: 5 doses or times, Stop date: Limited # of times Inactive 10/09/[address] [facility] Ondansetron 4 mg, 2 mL, Route: IVP, Drug form: INJ, Q8H, Dosing Weight 121.818, kg, PRN Nausea & Vomiting, Start date: 10/09/16 11:17:00 [employer], Duration: 30 day, Stop date: 11/08/16 11:16:00 CSTNotes: (Same as: Zofran) MEDICATION WASTE Product Size: 4 mg Product Wasted: ___ mg No Longer Active 10/09/[address] [facility] Sodium Chloride 0.154 MEQ/ML Injectable Solution 750 mL, Rate: 75 ml/hr, Infuse over: 10 hr, Route: IV, Dosing Weight 121.818 kg, Total Volume: 750, Start date: 10/09/16 11:17:00 [employer], Duration: 10 hr, Stop date: 10/09/16 21:16:00 [employer] Inactive 10/09/[address] [facility] Acetaminophen 325 MG / Hydrocodone Bitartrate 5 MG Oral Tablet 1 tab, Route: PO, Drug Form: TAB, Dosing Weight 121.818, kg, Q4H, PRN Pain Score 4-6, Start date: 10/09/16 11:17:00 [employer], Duration: 30 day, Stop date: 11/08/16 11:16:00 CSTNotes: (Same as: Minto 325/5) Do not exceed 4gm/day of acetaminophen. No Longer Active 10/09/[address] [facility] Hydrochlorothiazide 25 MG / valsartan 160 MG Oral Tablet 1 tab, PO, Daily, # 90 tab, 1 Refill(s) No Longer Active 10/09/[address] [facility] solifenacin succinate 5 MG Oral Tablet [VESICARE] 5 mg=1 tab, PO, Daily, # 30 tab, 0 Refill(s) Active 10/09/[address] [facility] valsartan PO, Valsartan/HCTZ 160/25, 0 Refill(s) Active 09/29/[address] [facility] Clonidine Hydrochloride 0.2 MG Oral Tablet 0.2 mg=1 tab, PO, Daily, 0 Refill(s) Active 09/29/[address] [facility] amLODIPine 2.5 mg oral tablet 2.5 mg=1 tab, PO, Daily, 0 Refill(s) Active 09/29/[address] [facility] ezetimibe 10 MG / Simvastatin 40 MG Oral Tablet [Vytorin 10/40] 1 tab, PO, Daily, 0 Refill(s) Active 09/29/[address] [facility] Metformin hydrochloride 1000 MG Oral Tablet 1,000 mg=1 tab, PO, BID, 0 Refill(s) Active 09/29/[address] [facility] montelukast 10 mg oral tablet 10 mg=1 tab, PO, Daily, 0 Refill(s) Active 09/29/[address] [facility] Home Medication Calcium Polycarbophil 625mg daily, Refill(s) 0 Active 09/29/[address] [facility] sitagliptin 100 MG Oral Tablet [Januvia] 100 mg=1 tab, PO, Daily, 0 Refill(s) Active 09/29/[address] [facility] omeprazole 20 mg oral delayed release capsule 20 mg=1 cap, PO, Daily, 0 Refill(s) Active 09/29/[address] [facility] glimepiride 4 mg, PO, Daily, 0 Refill(s) Active 09/29/[address] [facility] Furosemide 40 MG Oral Tablet 40 mg=1 tab, PO, Daily, 0 Refill(s) Active 09/29/[address] [facility] Aspirin Enteric Coated 81 mg oral delayed release tablet 81 mg=1 tab, PO, Daily, 0 Refill(s) Active 09/29/[address] [facility] Allergies, Adverse Reactions, Alerts Substance Category Reaction Severity Reaction type Status Date Reported Comments Source penicillin Assertion Drug allergy Active [facility] [place] Immunizations No Data Provided for This Section Results Order Name Results Value Reference Range Date Interpretation Comments Source URINE AND STOOL UA Sq Epi RARE 10/11/[address] [facility] URINE AND STOOL UA Urobilinogen <=1.0 mg/dL 0.1 - 1.0 10/11/[address] [facility] URINE AND STOOL Micro? Performed *NA* (10/11/16 10:35 AM) 10/11/[address] [facility] URINE AND STOOL UA Mucus Few /LPF None Seen /LPF 10/11/[address] [facility] URINE AND STOOL UA WBC 1 0 - 5 10/11/[address] [facility] URINE AND STOOL UA Turbidity Clear (10/11/16 10:35 AM) Clear 10/11/[address] [facility] URINE AND STOOL UA Color Light Yellow *NA* (10/11/16 10:35 AM) Yellow 10/11/[address] [facility] URINE AND STOOL UA Spec Grav 1.005 <=1.030 10/11/[address] [facility] URINE AND STOOL UA pH 6.0 5.0 - 8.0 10/11/[address] [facility] URINE AND STOOL UA Nitrite Negative (10/11/16 10:35 AM) Negative 10/11/[address] [facility] URINE AND STOOL UA Bili Negative *NA* (10/11/16 10:35 AM) Negative 10/11/[address] [facility] URINE AND STOOL UA Glucose 200 mg/dL Negative mg/dL 10/11/[address] [facility] URINE AND STOOL UA Ketones Negative mg/dL Negative mg/dL 10/11/[address] [facility] URINE AND STOOL UA Protein 10 mg/dL Negative mg/dL 10/11/[address] [facility] URINE AND STOOL UA Blood Negative (10/11/16 10:35 AM) Negative 10/11/[address] [facility] URINE AND STOOL UA Leuk Est Negative (10/11/16 10:35 AM) Negative 10/11/[address] [facility] CHEM PANEL Phosphorus 1.7 2.5 - 4.5 10/11/[address] [facility] CHEM PANEL Magnesium Lvl 2.1 1.8 - 2.4 10/11/[address] [facility] CHEM PANEL eGFR 60 10/11/2016 Result Comment: The eGFR is calculated [...] should be multiplied by the estimated BMI. [facility] CHEM PANEL Sodium Lvl 136 135 - 145 10/11/[address] [facility] CHEM PANEL Calcium Lvl 8.7 8.5 - 10.5 10/11/[address] [facility] CHEM PANEL Potassium Lvl 3.7 3.5 - 5.1 10/11/[address] [facility] CHEM PANEL Chloride Lvl 101 95 - 109 10/11/[address] [facility] CHEM PANEL CO2 24 24 - 32 10/11/[address] [facility] CHEM PANEL Creatinine Lvl 1.15 0.50 - 1.40 10/11/[address] [facility] CHEM PANEL BUN 13 7 - 22 10/11/[address] [facility] CHEM PANEL Glucose Lvl 190 70 - 99 10/11/[address] [facility] CHEM PANEL AGAP 14.7 10.0 - 20.0 10/11/[address] [facility] HEMATOLOGY Platelet 185 133 - 450 10/11/[address] [facility] HEMATOLOGY MPV 10.0 7.4 - 10.4 10/11/[address] [facility] HEMATOLOGY RDW 17.4 11.5 - 14.5 10/11/[address] [facility] HEMATOLOGY Hct 34.0 42.0 - 54.0 10/11/[address] [facility] HEMATOLOGY MCV 76.7 80.0 - 94.0 10/11/[address] [facility] HEMATOLOGY MCH 24.9 27.0 - 31.0 10/11/[address] [facility] HEMATOLOGY MCHC 32.5 32.0 - 36.0 10/11/[address] [facility] HEMATOLOGY Hgb 11.0 14.0 - 18.0 10/11/[address] [facility] HEMATOLOGY WBC 13.3 3.7 - 10.4 10/11/[address] [facility] HEMATOLOGY RBC 4.43 4.70 - 6.10 10/11/[address] [facility] HEMATOLOGY Basophils # 0.1 0.0 - 0.2 10/11/[address] [facility] HEMATOLOGY Segs-Bands # 10.1 1.5 - 8.1 10/11/[address] [facility] HEMATOLOGY Monocytes # 1.4 0.0 - 0.8 10/11/[address] [facility] HEMATOLOGY Lymphocytes # 1.6 1.0 - 5.5 10/11/[address] [facility] HEMATOLOGY Eosinophils # 0.2 0.0 - 0.5 10/11/[address] [facility] HEMATOLOGY Segs 75.8 45.0 - 75.0 10/11/[address] [facility] HEMATOLOGY Monocytes 10.3 2.0 - 12.0 10/11/[address] [facility] HEMATOLOGY Lymphocytes 12.0 20.0 - 40.0 10/11/[address] [facility] HEMATOLOGY Basophils 0.4 0.0 - 1.0 10/11/[address] [facility] HEMATOLOGY Eosinophils 1.5 0.0 - 4.0 10/11/[address] [facility] HEMATOLOGY Microcyte 1+ *ABN* (10/11/16 2:19 AM) None Seen 10/11/[address] [facility] CARDIAC ENZYMES BNP 190 <=100 pg/mL 10/10/[address] [facility] CHEM PANEL Magnesium Lvl 2.4 1.8 - 2.4 10/10/[address] [facility] ELECTROLYTES AGAP 14.9 10.0 - 20.0 10/10/[address] [facility] ELECTROLYTES eGFR 60 10/10/2016 Result Comment: The eGFR is calculated [...] should be multiplied by the estimated BMI. [facility] ELECTROLYTES Calcium Lvl 8.1 8.5 - 10.5 10/10/[address] [facility] ELECTROLYTES BUN 15 7 - 22 10/10/[address] [facility] ELECTROLYTES Creatinine Lvl 1.14 0.50 - 1.40 10/10/[address] [facility] ELECTROLYTES Chloride Lvl 103 95 - 109 10/10/[address] [facility] ELECTROLYTES CO2 25 24 - 32 10/10/[address] [facility] ELECTROLYTES Potassium Lvl 3.9 3.5 - 5.1 10/10/[address] [facility] ELECTROLYTES Sodium Lvl 139 135 - 145 10/10/[address] [facility] ELECTROLYTES Glucose Lvl 203 70 - 99 10/10/[address] [facility] HEMATOLOGY PTT 31.8 22.9 - 35.8 10/10/[address] [facility] HEMATOLOGY PT 14.3 12.0 - 14.7 10/10/[address] [facility] HEMATOLOGY INR 1.09 0.85 - 1.17 10/10/[address] [facility] HEMATOLOGY MPV 10.1 7.4 - 10.4 10/10/[address] [facility] HEMATOLOGY RDW 16.9 11.5 - 14.5 10/10/[address] [facility] HEMATOLOGY MCHC 32.4 32.0 - 36.0 10/10/[address] [facility] HEMATOLOGY MCH 25.2 27.0 - 31.0 10/10/[address] [facility] HEMATOLOGY Platelet 191 133 - 450 10/10/[address] [facility] HEMATOLOGY Hct 33.5 42.0 - 54.0 10/10/[address] [facility] HEMATOLOGY Hgb 10.8 14.0 - 18.0 10/10/[address] [facility] HEMATOLOGY MCV 77.6 80.0 - 94.0 10/10/[address] [facility] HEMATOLOGY RBC 4.31 4.70 - 6.10 10/10/[address] [facility] HEMATOLOGY WBC 11.7 3.7 - 10.4 10/10/[address] [facility] HEMATOLOGY Microcyte 1+ *ABN* (10/10/16 3:51 AM) None Seen 10/10/[address] [facility] HEMATOLOGY Eosinophils # 0.2 0.0 - 0.5 10/10/[address] [facility] HEMATOLOGY Monocytes # 1.1 0.0 - 0.8 10/10/[address] [facility] HEMATOLOGY Lymphocytes # 1.2 1.0 - 5.5 10/10/[address] [facility] HEMATOLOGY Segs-Bands # 9.2 1.5 - 8.1 10/10/[address] [facility] HEMATOLOGY Eosinophils 1.4 0.0 - 4.0 10/10/[address] [facility] HEMATOLOGY Basophils 0.4 0.0 - 1.0 10/10/[address] [facility] HEMATOLOGY Monocytes 9.4 2.0 - 12.0 10/10/[address] [facility] HEMATOLOGY Lymphocytes 10.2 20.0 - 40.0 10/10/[address] [facility] HEMATOLOGY Segs 78.6 45.0 - 75.0 10/10/[address] [facility] CHEM PANEL Magnesium Lvl 1.4 1.8 - 2.4 10/09/[address] [facility] ELECTROLYTES AGAP 9.8 10.0 - 20.0 10/09/[address] [facility] ELECTROLYTES eGFR 52 10/09/2016 Result Comment: The eGFR is calculated [...] should be multiplied by the estimated BMI. [facility] ELECTROLYTES CO2 29 24 - 32 10/09/[address] [facility] ELECTROLYTES Calcium Lvl 8.3 8.5 - 10.5 10/09/[address] [facility] ELECTROLYTES Creatinine Lvl 1.29 0.50 - 1.40 10/09/[address] [facility] ELECTROLYTES Sodium Lvl 140 135 - 145 10/09/[address] [facility] ELECTROLYTES Glucose Lvl 165 70 - 99 10/09/[address] [facility] ELECTROLYTES Chloride Lvl 105 95 - 109 10/09/[address] [facility] ELECTROLYTES Potassium Lvl 3.8 3.5 - 5.1 10/09/[address] [facility] ELECTROLYTES BUN 23 7 - 22 10/09/[address] [facility] HEMATOLOGY WBC 12.1 3.7 - 10.4 10/09/[address] [facility] HEMATOLOGY RDW 17.0 11.5 - 14.5 10/09/[address] [facility] HEMATOLOGY Platelet 178 133 - 450 10/09/[address] [facility] HEMATOLOGY MPV 10.7 7.4 - 10.4 10/09/[address] [facility] HEMATOLOGY RBC 4.17 4.70 - 6.10 10/09/[address] [facility] HEMATOLOGY MCV 77.5 80.0 - 94.0 10/09/[address] [facility] HEMATOLOGY Hgb 10.5 14.0 - 18.0 10/09/[address] [facility] HEMATOLOGY Hct 32.3 42.0 - 54.0 10/09/[address] [facility] HEMATOLOGY MCHC 32.4 32.0 - 36.0 10/09/[address] [facility] HEMATOLOGY MCH 25.1 27.0 - 31.0 10/09/[address] [facility] HEMATOLOGY Monocytes 3.0 2.0 - 12.0 10/09/[address] [facility] HEMATOLOGY Lymphocytes 9.0 20.0 - 40.0 10/09/[address] [facility] HEMATOLOGY Bands 0.0 0.0 - 11.0 10/09/[address] [facility] HEMATOLOGY Eosinophils 5.0 0.0 - 4.0 10/09/[address] [facility] HEMATOLOGY Eosinophils # 0.6 0.0 - 0.5 10/09/[address] [facility] HEMATOLOGY Monocytes # 0.4 0.0 - 0.8 10/09/[address] [facility] HEMATOLOGY Lymphocytes # 1.1 1.0 - 5.5 10/09/[address] [facility] HEMATOLOGY Segs-Bands # 10.0 1.5 - 8.1 10/09/[address] [facility] HEMATOLOGY Segs 83.0 45.0 - 75.0 10/09/[address] [facility] HEMATOLOGY Microcyte 1+ *ABN* (10/09/16 1:32 PM) None Seen 10/09/[address] [facility] HEMATOLOGY Plt Morph Normal (10/09/16 1:32 PM) 10/09/[address] [facility] HEMATOLOGY Atypical Lymphs 0.0 <=0.0 % 10/09/[address] [facility] HEMATOLOGY PT 14.6 12.0 - 14.7 10/09/[address] [facility] HEMATOLOGY PTT 32.4 22.9 - 35.8 10/09/[address] [facility] HEMATOLOGY INR 1.12 0.85 - 1.17 10/09/[address] [facility] BLOOD BANK RESULTS Antibody Scrn Negative (10/09/16 6:38 AM) 10/09/[address] [facility] BLOOD BANK RESULTS ABO/Rh O POS 10/09/[address] [facility] BLOOD BANK RESULTS FFP product Product available (10/09/16 6:38 AM) 10/09/[address] [facility] BLOOD BANK RESULTS RBC product Product available (10/09/16 6:38 AM) 10/09/[address] [facility] CHEM PANEL Globulin 3.3 2.7 - 4.2 10/09/[address] [facility] CHEM PANEL A/G Ratio 1.1 0.7 - 1.6 10/09/[address] [facility] CHEM PANEL B/C Ratio 18 6 - 25 10/09/[address] [facility] CHEM PANEL Bili Total 0.2 0.2 - 1.3 10/09/[address] [facility] CHEM PANEL Total Protein 7.0 6.4 - 8.4 10/09/[address] [facility] CHEM PANEL AST 12 0 - 37 10/09/[address] [facility] CHEM PANEL ALT 19 0 - 65 10/09/[address] [facility] CHEM PANEL Albumin Lvl 3.7 3.5 - 5.0 10/09/[address] [facility] CHEM PANEL Alk Phos 60 39 - 136 10/09/[address] [facility] HEMATOLOGY Basophils 1.1 0.0 - 1.0 10/09/[address] [facility] HEMATOLOGY Basophils # 0.1 0.0 - 0.2 10/09/[address] [facility] HEMATOLOGY INR 1.02 0.85 - 1.17 10/09/[address] [facility] HEMATOLOGY PTT 32.4 22.9 - 35.8 10/09/[address] [facility] HEMATOLOGY PT 13.6 12.0 - 14.7 10/09/[address] [facility] CHEM PANEL eGFR 40 09/30/2016 Result Comment: The eGFR is calculated [...] should be multiplied by the estimated BMI. [facility] CHEM PANEL POC Creatinine 1.6 0.5 - 1.4 09/30/[address] [facility] Pathology Reports No Data Provided for This Section Diagnostic Reports Report Value Date Source Chest 2 views DX Exam: Two-view chest [...] cardiopulmonary abnormalities. Right hemidiaphragm remains elevated. 12/07/2017 [facility] Chest 2 views DX EXAM: Chest 2 views DX HISTORY: - R06.09 Other forms of dyspnea COMPARISON: 10/23/2016 Elevation of the right hemidiaphragm is again noted with right basilar atelectasis. Cardiac silhouette is stable with pacing leads and stent again noted. No new abnormality. No effusion or pneumothorax. IMPRESSION: Stable radiographic evaluation of the chest. 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 Basilar atelectasis in the right lung. The left lung is clear. No effusion or pneumothorax. Heart size is stable with stent and pacing leads again noted. IMPRESSION: Elevation of the right hemidiaphragm appears stable. No acute abnormality. 10/23/2016 [facility] Garciaa Chest 2 views DX EXAM: XR CHEST 2 VIEWS DATE: 10/10/2016 2:06 PM [employer] INDICATION: Line Placement FINDINGS: PA and lateral [...] are identified. IMPRESSION: No significant change. 10/10/[address] [facility] Chest 1view DX EXAM: XR CHEST 1 VIEW DATE: 10/09/2016 11:17 AM [employer] INDICATION: Arrhythmias COMPARISON: 11/26/2015 FINDINGS: Interval TAVR [...] confluent vascular structures on 09/30/2016 CT. 10/09/[address] [facility] Chest/Abd/Pelvis TAVR CTA EXAM: CTA CHEST WITH AND WITHOUT CONTRAST EXAM: CTA ABDOMEN AND PELVIS WITH AND WITHOUT CONTRAST DATE: 09/30/2016 8:09 AM [employer] INDICATION: Dyspnea on exertion ADDITIONAL INFORMATION: None. [...] 4. Diverticulosis without evidence of diverticulitis. 09/30/[address] [facility] Heart/coronary art TAVR CTA EXAM: CARDIAC COMPUTED TOMOGRAPHY ANGIOGRAPHY DATE: September 30, 2016 INDICATION: Aortic stenosis. COMPARISON: None TECHNIQUE: Contrast imaging was performed on a [employer] [address] scanner utilizing a [...] and moderate concentric hypertrophy. Ejection Fraction: >70% YII=913 cc ESV=25 cc SX=611 cc Lung calvillo to the extent visualized in limited study: Please see radiologist interpretation for extracardiac findings. IMPRESSION: Aortic valve disease. Three-vessel coronary artery disease. 09/30/[address] [facility] Chest 2 views DX CHEST PA AND [...] is no acute cardio pulmonary abnormality. [facility] [place] [facility] CHEST RADIOGRAPHY CLINICAL HISTORY: [...] without evidence of acute cardiopulmonary abnormality. 10/04/2014 [facility] Chest 2 views Exam: Chest x-ray, 2 [...] compared to most recent chest x-ray. 10/10[facility] Consultation Notes No Data Provided for This Section Discharge Summaries No Data Provided for This Section History and Physicals No Data Provided for This Section Vital Signs Vital Sign Value Date Comments Source Height 177.8 cm 11/09/[address] [facility] Weight 118.324 11/09/[address] [facility] BMI Calculated 37.43 11/09/[address] [facility] Systolic (mm Hg) 160 11/09/[address] [facility] Diastolic (mm Hg) 70 11/09/[address] [facility] Heart Rate 68 11/09/[address] [facility] Temperature Oral (F) 98.0 F 11/09/[address] [facility] BMI Calculated 38.4 10/19/[address] [facility] Weight 121.392 10/19/[address] [facility] Height 177.8 cm 10/19/[address] [facility] Heart Rate 78 10/19/[address] [facility] Temperature Oral (F) 97.9 F 10/19/2016 [facility] Respitory Rate 24 10/19/2016 [facility] Systolic (mm Hg) 150 10/19/2016 [facility] Diastolic (mm Hg) 60 10/19/2016 [facility] Systolic (mm Hg) 126 10/11/2016 [facility] Diastolic (mm Hg) 75 10/11/2016 [facility] Systolic (mm Hg) 146 10/11/2016 [facility] Diastolic (mm Hg) 119 10/11/[address] [facility] Temperature Oral (F) 99.0 F 10/11/[address] [facility] Temperature Oral (F) 99.2 F 10/11/[address] [facility] Temperature Oral (F) 98.1 F 10/11/[address] [facility] Systolic (mm Hg) 142 10/11/2016 [facility] Diastolic (mm Hg) 71 10/11/[address] [facility] Respitory Rate 18 10/11/[address] [facility] Respitory Rate 18 10/11/[address] [facility] Respitory Rate 20 10/11/[address] [facility] BMI Calculated 38.53 10/09/[address] [facility] Height 177.8 cm 10/09/[address] [facility] Weight 121.818 10/09/[address] [facility] Height 177.8 cm 09/30/[address] [facility] Weight 118.636 09/30/[address] [facility] BMI Calculated 37.53 09/30/[address] [facility] Temperature Oral (F) 98.0 F 09/29/[address] [facility] Height 177.8 cm 09/29/[address] [facility] Weight 118.835 09/29/[address] [facility] BMI Calculated 37.59 09/29/[address] [facility] Heart Rate 66 09/29/[address] [facility] Respitory Rate 18 09/29/[address] [facility] Encounters Location Location Details Encounter Type Encounter Number Reason For Visit Attending Provider ADM Date DC Date Status Source OD [id number] [id number] - SHORTNESS OF BR JORGE LUIS LEUNG 08/08/2012 Active [facility] [place] [facility] [place] [facility] [id number] Jorge Luis Leung 10/04/2014 10/05/2014 [facility] [place] [facility] [place] [facility] [id number] Jorge Luis Leung 11/26/2015 11/27/2015 [facility] [place] [facility] Outpatient [id number] Bridget Herzog 09/29/2016 09/30/2016 [facility] Outpatient [id number] Beni Booth 09/30/2016 10/01/2016 [facility] Inpatient [id number] Lilianawycody Herzog 10/09/2016 10/11/2016 [facility] Outpatient [id number] Alexis Ziegler 10/19/2016 10/20/2016 [facility] [place] [facility] [id number] Jorge Luis Leung 10/23/2016 10/24/2016 [facility] [place] [facility] Outpatient [id number] Bridget Herzog 11/09/2016 11/10/2016 [facility] [place] [facility] [id number] Jorge Luis Leung 05/11/2017 05/12/2017 [facility] [place] [facility] [place] [facility] [id number] Jorge Luis Leung 12/07/2017 12/08/2017 [facility] [place] Procedures No Data Provided for This Section Assessment and Plan Assessment and Plan Date Source Extracted from:Title: AHF Inpatient Progress Note Author: Hermelindo Melton [...] in IMU, PT evaluation before discharge Extracted from:Title: Heart Failure Admission H&P * Author: Kel Lam DO Date: 10/09/16 Impression and Plan 81 y/o man with [...] with the assessment and plan as outlined. 10/11/[address] [facility] Plan of Care No Data Provided for This Section Social History Social History Date Source Social History TypeResponse Smoking Status Former smoker; Ready to change: No; Concerns about tobacco use in household: No; Exposure to Tobacco Smoke None; Cigarette Smoking Last 365 Days No; Reg Smoking Cessation Counseling No entered on: 11/09/16 11/09/2016 [facility] Social History TypeResponse Smoking Status Former smoker; Ready to change: No; Concerns about tobacco use in household: No; Exposure to Tobacco Smoke None; Cigarette Smoking Last 365 Days No; Reg Smoking Cessation Counseling No 11/09/[address] [facility] Family History No Data Provided for This Section Advance Directives No Data Provided for This Section Functional Status No Data Provided for This Section
--- NOTE | 2019-05-20 21:30 | NUR ---
PT BROUGHT BACK TO ROOM 4 AT THIS TIME, NAD NOTED, AMBULATORY WITH CANE, STEADY GAIT NOTED. WORK OF BREATHING DOES INCREASE WITH AMBULATION.
--- NOTE | 2019-05-20 21:36 | NUR ---
RADIOLOGY AT BEDSIDE FOR CXR AT THIS TIME.
--- NOTE | 2019-05-20 21:40 | NUR ---
PT INFORMED ON NEED FOR UA, STATES THAT HE WILL VOID SOON, GIVEN URINAL.
[2019-05-20 21:47] LABS: BASOPHILS # (AUTO) 0.1 (0.0-0.1); BASOPHILS % 0.5 % (0.0-1.0); EOSINOPHILS # (AUTO) 0.3 (0.0-0.4); EOSINOPHILS % 2.9 % (0.0-6.0); HEMATOCRIT 29.4 % (38.2-49.6); LYMPHOCYTES # (AUTO) 1.5 (1.0-3.2); MEAN CORPUSCULAR HEMOGLOBIN 25.7 pg (28-32); MEAN CORPUSCULAR HGB CONC 30.6 g/dL (31-35); MONOCYTES # (AUTO) 0.7 (0.2-0.8); MONOCYTES % 7.2 % (4.4-11.3); NEUTROPHILS # (AUTO) 7.2 (2.1-6.9); NEUTROPHILS % 73.7 % (38.7-80.0); PLATELET COUNT 246 x10e3/uL (140-360); RED CELL DISTRIBUTION WIDTH 15.8 % (11.7-14.4)
[2019-05-20 21:53] LABS: INR 2.07
[2019-05-20] MEDS ORDERED: WARFARIN SODIUM3 MG PO (21:53)
[2019-05-20] MEDS ORDERED: ADVAIR 250-501 EACH PO (21:53)
[2019-05-20] MEDS ORDERED: FUROSEMIDE40 MG PO ×2 (21:53)
[2019-05-20] MEDS ORDERED: LANTUS 3ML100 UNITS/ SQ (21:53)
[2019-05-20] MEDS ORDERED: MYRBETRIQ50 MG PO (21:53)
[2019-05-20] MEDS ORDERED: DOCUSATE SODIU100 MG PO (21:53)
[2019-05-20] MEDS ORDERED: COMBIVENT RESPIM4 GM IH (21:53)
[2019-05-20] MEDS ORDERED: SPIRONOLACTONE25 MG PO (21:53)
[2019-05-20 21:54] LABS: PARTIAL THROMBOPLASTIN TIME 41.3 seconds (23.8-35.5)
[2019-05-20 22:03] LABS: ALBUMIN 3.1 g/dL (3.5-5.0); ALKALINE PHOSPHATASE 95 IU/L (40-150); ANION GAP 13.8 mmol/L (8-16); BLOOD UREA NITROGEN 27 mg/dL (7-26); BUN/CREATININE RATIO 17 (6-25); CALCIUM 8.8 mg/dL (8.4-10.2); CARBON DIOXIDE 27 mmol/L (22-29); CHLORIDE 101 mmol/L (98-107); CREATINE KINASE 99 IU/L (30-200); CREATININE, SERUM 1.59 mg/dL (0.72-1.25); EST GLOMERULAR FILTRATION RATE 42 ML/MIN (60-); GLUCOSE 350 mg/dL (74-118); POTASSIUM 3.8 mmol/L (3.5-5.1); SODIUM 138 mmol/L (136-145)
[2019-05-20 22:23] LABS: ALANINE AMINOTRANSFERASE < 6 IU/L (0-55)
--- NOTE | 2019-05-20 22:36 | Diagnostic Imaging Report ---
Examination: Single AP view of the chest. COMPARISON: 01/30/2019 INDICATION: Shortness of breath DISCUSSION: Unchanged left subclavian implantable cardiac device body and leads. Valvular prosthesis also unchanged. Right hemidiaphragmatic elevation with linear opacity in the right lung base. No new consolidation or effusion. Stable cardiomediastinal contour with tortuosity and atherosclerotic calcification of the thoracic aorta. No acute osseous abnormality. IMPRESSION: Linear atelectasis or fibrotic change in the right lung base with right hemidiaphragmatic elevation, similar to prior. No new consolidation. Signed by: Dr. Rancho Pantoja M.D. on 05/20/2019 10:33 PM
[2019-05-20 22:40] LABS: BILIRUBIN,URINE NEGATIVE (NEGATIVE); CLARITY,URINE CLEAR (CLEAR); COLOR,URINE YELLOW (YELLOW); KETONES,URINE NEGATIVE (NEGATIVE); LEUKOCYTE ESTERASE ,URINE NEGATIVE (NEGATIVE); NITRITE,URINE NEGATIVE (NEGATIVE); PROTEIN,URINE DIPSTICK TRACE (NEGATIVE); URINE UROBILINOGEN 0.2 mg/dL (0.2 - 1)
--- NOTE | 2019-05-20 22:58 | NUR ---
REPORT GIVEN TO KEISHA MICHAEL
[2019-05-20 23:07] LABS: RBC,URINE 0-5 /HPF (0-5); WBC,URINE (MAN) 0-5 /HPF (0-5)
[2019-05-21] MEDS ORDERED: SODIUM CHLORIDE 0.9% 50ML 50 ML ONE (00:17)
[2019-05-21] MEDS ORDERED: IOPAMIDOL 370 MG/ML 200 ML INFUS..BTL INJ ONE (00:17)
[2019-05-21] MEDS ORDERED: SODIUM CHLORIDE 0.9% 1000ML 1,000 ML ONE (00:18)
[2019-05-21] MEDS ORDERED: SODIUM CHLORIDE 0.9% 500ML 500 ML IV ONE (01:15)
--- NOTE | 2019-05-21 01:52 | Diagnostic Imaging Report ---
EXAMINATION: CT of the chest with contrast, PE protocol. TECHNIQUE: Spiral CT images of the chest were performed from the lung apices through the level of the adrenal glands after the IV administration of 100 cc Isovue-[id number]. Thin section reconstructions were obtained with special concentration on the pulmonary arteries. COMPARISON: Chest radiograph same day., Chest CT 07/24/2018 CLINICAL HISTORY:Shortness of breath DISCUSSION: Vasculature: The main pulmonary artery, right and left pulmonary arteries, and their visualized lobar and segmental branches are patent, without filling defect. The pulmonary outflow tract is of normal caliber. There is no ectasia or aneurysmal dilatation of the thoracic aorta. 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 No right ventricular dilatation or septal bowing. Great vessel origins are of normal caliber and configuration. Left subclavian approach implantable cardiac device leads terminate within the right atrial appendage and right ventricle. Lungs: Scattered foci of linear opacity in the upper lobes, compatible with fibrotic change or subsegmental atelectasis. Bandlike atelectasis in the right lower and middle lobes Airways: Trachea, mainstem bronchi, and central lobar and segmental bronchi are patent. Pleura: <There is no evidence of pleural effusion or pneumothorax.> Heart and mediastinum: Visualized portions of the thyroid gland appear normal. No axillary, hilar, or mediastinal lymphadenopathy. Abdomen: Visualized portions of the liver, gallbladder, spleen, pancreas, and adrenals are unremarkable. Mild bilateral nonspecific perinephric fat stranding Bones and soft tissues: No acute osseous abnormalities. Degenerative disc changes of the thoracic spine. IMPRESSION: No pulmonary embolus to the level of the segmental branch pulmonary arteries. Signed by: Dr. Rancho Pantoja M.D. on 05/21/2019 1:49 AM
[2019-05-21] MEDS ORDERED: ALBUTEROL/IPRATROPIUM 3 ML NEB NEB ONE (02:15)
[2019-05-21 03:19] LABS: CREATINE KINASE MB 1.2 ng/mL (0-5.0)
[2019-05-21 03:41] VITALS: BP 123/56
== END 2019-05-21 03:58 | disposition home or self-care (01) ==
LOC: ER 20:30
DX: R06.00 Dyspnea, unspecified (principal); R06.02 Shortness of breath; R60.9 Edema, unspecified; I10 Essential (primary) hypertension; E11.9 Type 2 diabetes mellitus without complications; J45.909 Unspecified asthma, uncomplicated; Z95.0 Presence of cardiac pacemaker
CPT/HCPCS: 36415; 71045; 71260; 80053; 81001; 82550; 82553; 83880; 84484; 85025; 85610; 85730; 87086; 94640; 99284; J7030; Q9967

== ENCOUNTER 2020-05-04 10:11 | Inpatient (IN) | payer MEDICARE, BC, OTHER ==
[~2020-05-04] VITALS: Ht 177.8 cm; Wt 117.5 kg
[~2020-05-04 10:11] MED LIST changes: +ADVAIR 250-501 EACH PO; +COMBIVENT RESPIM4 GM IH; +HYDROCODON-ACE1 EA12 PO; +LANTUS 3ML100 UNITS/ SQ; +MYRBETRIQ50 MG PO; +POTASSIUM CHLO10 ME1 PO
[2020-05-04] MEDS ORDERED: CEFTRIAXONE SOD 1 GM/NS 50 ML 50 ML IV ONE (10:45)
--- OUTSIDE RECORDS SUMMARY | 2020-05-04 10:55 | XMS REPORT | Continuity of Care Document ---
Author Author [facility] t Organization [facility] Address [address] [place] [address] Phone Unavailable Care Team Providers Care Manager Marketing Name Role Phone VIDYA BROWNLEE MD PCP JORGE LUIS SHIELDS Attphys Unavailable Osmel ALMANZAR Attphys Unavailable PATI BENJAMIN Attphys Unavailable VIDYA BROWNLEE Attphys Unavailable Ailyn VELA Attphys Unavailable NORBERTO FUCHS Attphys Unavailable JORGE LUIS SHIELDS Admphys Unavailable VIDYA BROWNLEE Admphys Unavailable Payers Payer Name Policy Type Policy Number Effective Date Expiration Date [facility] [id number] 2018 00:00:00 [facility] Medicare A & B [id number] 2001 00:00:00 [facility] Problems Condition Name Condition Details Condition Category Status Onset Date Resolution Date Last Treatment Date Treating Clinician Comments Source Dehydration Dehydration Problem Active [facility] Diverticulitis Diverticulitis Problem Active [facility] Hyperglycemia Hyperglycemia Problem Active [facility] Hyponatremia Hyponatremia Problem Active [facility] Encounter for examination following surgery Postoperative follow -up Problem Active [facility] Acute renal failure superimposed on chronic kidney dis ease Renal failure (ARF), acute on chronic Problem Active [facility] Retention of urine Urinary retention Problem Active [facility] Allergies, Adverse Reactions, Alerts Allergy Name Allergy Type Status Severity Reaction(s) Onset Date Inacti ve Date Treating Clinician Comments Source Penicillins DA Active U 2018-08-09 00:00:00 [facility] Penicillin Allergy to Substance Active 2018-05-16 00:00:00 [facility] No Known Contrast Allergies DA Active U 2007-04-04 00:00: 00 [facility] No Known Food Allergies DA Active 2007-04-04 00:00:00 [facility] No Known Other Allergies DA Active U 2007-04-04 00:00:00 [facility] PENICILLIN DA Active 2007-04-04 00:00:00 [facility] Medications Ordered Medication Name Filled Medication Name Start Date Stop Da te Current Medication? Ordering Clinician Indication Dosage Frequency Signature (SIG) Comments Components Source Allopurinol 300 Mg Tablet Allopurinol 300 Mg Tablet Yes 300 Daily [facility] Atorvastatin Calcium 10 Mg Tablet Atorvastatin Calcium 10 Mg Tablet Yes 10 Today At 9:00PM [facility] Clopidogrel Bisulfate (Clopidogrel) 75 Mg Tablet Clopi dogrel Bisulfate (Clopidogrel) 75 Mg Tablet Yes 75 Daily [facility] Docusate Sodium 100 Mg Capsule Docusate Sodium 100 Mg Capsule Yes 100 Four Times Daily [facility] Fluticasone/Salmeterol (Advair 250-50 Diskus) 1 Each D isk.w.dev Fluticasone/Salmeterol (Advair 250-50 Diskus) 1 Each Disk.w.dev Yes 1 Twice A Day [facility] Furosemide 40 Mg Tablet Furosemide 40 Mg Tablet Yes 80 Daily [facility] Furosemide 40 Mg Tablet Furosemide 40 Mg Tablet Yes 40 Bedtime [facility] Glimepiride 4 Mg Tablet Glimepiride 4 Mg Tablet Yes 4 Twice A Day [facility] Hydrocodone Bit/Acetaminophen (Hydrocodon-Acetaminoph 7.5-325) 1 Each Tablet Hydrocodone Bit/Acetaminophen (Hydrocodon-Acetaminoph 7.5-325) 1 Each Tablet Yes Every 4 Hours for Pain [facility] Insulin Glargine (Lantus 3ML Pen) 100 Units/1 Ml Inj I nsulin Glargine (Lantus 3ML Pen) 100 Units/1 Ml Inj Yes 50 Daily [facility] Ipratropium/Albuterol Sulfate (Combivent Respimat Inha l [place]) 4 Gm Aer.w.adap Ipratropium/Albuterol Sulfate (Combivent Respimat Inhal [place]) 4 Gm Aer.w.adap Yes 4 Every 6 Hours as needed for Yasmeen rtness Of Breath [facility] Metoprolol Succinate 50 Mg Tab.er.24h Metoprolol Succinate 50 Mg Ta b.er.24h Yes 50 Twice A Day [facility] Mirabegron (Myrbetriq) 50 Mg Tab.er.24h Mirabegron (Myrbetri q) 50 Mg Tab.er.24h Yes 50 Daily [facility] Pantoprazole Sodium (Protonix) 40 Mg Tablet. Pantopr azole Sodium (Protonix) 40 Mg Tablet. Yes 40 Bedtime [facility] Potassium Chloride 10 Meq Tab.er.prt Potassium Chloride 10 Meq Tab. er.prt Yes 10 Daily [facility] Spironolactone 25 Mg Tablet Spironolactone 25 Mg Tablet Yes 25 Twice A Day [facility] Warfarin Sodium 3 Mg Tablet Warfarin Sodium 3 Mg Tablet Yes 10 Daily [facility] Tramadol Hcl (Ultram 50MG*) 50 Mg Tab, 50 Mg Oral Tram adol Hcl (Ultram 50MG*) 50 Mg Tab, 50 Mg Oral 2019-09-25 00:00:00 No 50 Every 6 Hours [facility] Docusate Sodium 100 Mg Capsule, 100 Mg Oral Docusate S odium 100 Mg Capsule, 100 Mg Oral 2019-05-20 00:00:00 No 100 Daily [facility] Ferrous Sulfate 325 Mg Tablet., Oral Ferrous Sulfa te 325 Mg Tablet., Oral 2019-05-20 00:00:00 No Three Times A Day [facility] Furosemide 40 Mg Tablet, 80 Mg Oral Furosemide 40 Mg Tablet, 80 Mg Oral 2019-05-20 00:00:00 No 80 Twice A Day [facility] Insulin Glargine (Lantus 3ML Pen) 100 Units/1 Ml Inj, 30 Subcutaneously Insulin Glargine (Lantus 3ML Pen) 100 Units/1 Ml Inj, 30 Subcutaneously 2019-05-20 00:00:00 No 30 Daily [facility] Metolazone 5 Mg Tablet, 5 Mg Oral Metolazone 5 Mg Tablet, 5 Mg O ral 2019-05-20 00:00:00 No 5 Daily [facility] Montelukast Sodium 10 Mg Tablet, 10 Mg Oral Montelukas t Sodium 10 Mg Tablet, 10 Mg Oral 2019-05-20 00:00:00 No 10 Bedtime [facility] Prednisone 20 Mg Tab, 10 Mg Oral Prednisone 20 Mg Tab, 10 Mg Ora l 2019-05-20 00:00:00 No 10 Daily [facility] Spironolactone 25 Mg Tablet, 50 Mg Oral Spironolactone 25 Mg Tablet, 50 Mg Oral 2019-05-20 00:00:00 No 50 Twice A Day [facility] Warfarin Sodium 1 Mg Tablet, 7.5 Mg Oral Warfarin Sodi um 1 Mg Tablet, 7.5 Mg Oral 2019-05-20 00:00:00 No 7.5 Daily [facility] Warfarin Sodium 3 Mg Tablet, 10 Mg Oral Warfarin Sodium 3 Mg Tablet, 10 Mg Oral 2019-05-20 00:00:00 No 10 Qsaturday [facility] Acetaminophen/Codeine Phosphate (Tylenol # 3*) 1 Ea Ta b, 1 Tab Oral Acetaminophen/Codeine Phosphate (Tylenol # 3*) 1 Ea Tab, 1 Tab Oral 2018-09-21 00:00:00 No 1 Every 4 Hours as needed for Mary n [facility] Aspirin 81 Mg Tab.chew, 81 Mg Oral Aspirin 81 Mg Tab.chew, 81 Mg Oral 2018-09-21 00:00:00 No 81 Daily [facility] Calcium Polycarbophil (Fiber Laxative) 625 Mg Tablet, 625 Mg Oral Calcium Polycarbophil (Fiber Laxative) 625 Mg Tablet, 625 Mg Oral 20 08-10-01 00:00:00 No 625 Daily [facility] Ezetimibe/Simvastatin (Vytorin 10-40 Mg Tablet) 1 Each Tablet, 1 Tab Oral Ezetimibe/Simvastatin (Vytorin 10-40 Mg Tablet) 1 Each Tablet, 1 Tab Oral 2018-09-21 00:00:00 No 1 Daily [facility] Fluticasone Cream , 0.05 % Topically Fluticasone Cream , 0.05 % Topically 2018-09-21 00:00:00 No .05 As Needed as needed for Itching [facility] Fluticasone/Salmeterol (Advair 250-50 Di skus) 1 Each Disk.w.dev, 1 Inh Inhalation Fluticasone/Salmeterol (Advair 250-50 Di skus) 1 Each Disk.w.dev, 1 Inh Inhalation 2018-09-21 00:00:00 No 1 As Needed [facility] Metformin Hcl 1,000 Mg Tablet, 1000 Mg Oral Metformin Hcl 1,000 Mg Tablet, 1000 Mg Oral 2018-09-21 00:00:00 No 1000 Twice A Day [facility] Sitagliptin Phosphate (Januvia) 100 Mg Tablet, 100 Mg Oral Sitagliptin Phosphate (Januvia) 100 Mg Tablet, 100 Mg Oral 2018-09-21 00:00:00 No 100 Daily [facility] Solifenacin Succinate (Vesicare) 5 Mg Tablet, 5 Mg Ora l Solifenacin Succinate (Vesicare) 5 Mg Tablet, 5 Mg Oral 2018-09-21 00:00:00 No 5 Daily [facility] Valsartan/Hydrochlorothiazide (Diovan Hc t 160-25 Mg Tablet) 1 Each Tablet, 1 Tab Oral Valsartan/Hydrochlorothiazide (Diovan Hc t 160-25 Mg Tablet) 1 Each Tablet, 1 Tab Oral 2018-09-21 00:00:00 No 1 Daily [facility] Amlodipine Besylate 5 Mg Tablet, 5 Mg Oral Amlodipine Besylate 5 Mg Tablet, 5 Mg Oral 2018-07-07 00:00:00 No 5 Daily [facility] Clopidogrel Bisulfate (Plavix) 75 Mg Tablet, 75 Mg Ora l Clopidogrel Bisulfate (Plavix) 75 Mg Tablet, 75 Mg Oral 2018-07-07 00:00:00 No 75 Daily [facility] Fluticasone/Salmeterol (Advair 250-50 Di skus) 1 Each Disk.w.dev, 1 Inh Inhalation Fluticasone/Salmeterol (Advair 250-50 Di skus) 1 Each Disk.w.dev, 1 Inh Inhalation 2018-07-07 00:00:00 No 1 Daily [facility] Sitagliptin Phosphate (Januvia) 100 Mg Tablet, 100 Mg Oral Sitagliptin Phosphate (Januvia) 100 Mg Tablet, 100 Mg Oral 2018-05-26 00:00:00 No 100 Daily [facility] Procedures Procedure Date / Time Performed Performing Clinician [facility] e Total replacement of left knee joint 2019-09-25 00:00:00 JORGE LUIS SHIELDS [facility] X-ray of chest, two views 2019-09-22 00:00:00 JORGE LUIS SHIELDS [facility] Computed tomography of chest with contrast 2019-05-21 00:00:00 [facility] X-ray of chest, two views 2019-01-30 00:00:00 PATI BENJAMIN [facility] Encounters Start Date/Time End Date/Time Encounter Type Admission Type Attendi [facility] Facility Care Department Encounter ID Source 2019-09-25 12:47:00 2019-09-26 16:30:00 Discharged Inpatient (obs) 3 JORGE LUIS SHIELDS [facility] [id number] [facility] 2019-05-20 20:30:00 2019-05-21 03:58:00 Departed Emergency Room 1 NILE ALMANZAR [facility] [id number] [facility] 2019-01-30 15:35:00 2019-01-30 15:35:00 Registered Clinic 3 PATI BENJAMIN [facility] [id number] [facility] 2018-12-22 02:05:00 2018-12-28 14:20:00 Discharged Inpatient 1 VIDYA BROWNLEE [facility] [id number] [facility] 2018-09-21 13:59:00 2018-09-28 16:53:00 Discharged Inpatient 1 VIDYA BROWNLEE [facility] [id number] [facility] 2018-07-23 22:05:00 2018-08-03 21:14:00 Discharged Inpatient 1 VIDYA BROWNLEE [facility] [id number] [facility] 2018-07-07 13:14:00 2018-07-13 11:07:00 Discharged Inpatient 3 VINH VELA [facility] [id number] [facility] 2018-05-31 08:45:00 2018-05-31 08:45:00 Registered Clinic 3 NORBERTO FUCHS [facility] [id number] [facility] 2018-05-27 09:50:00 2018-05-27 09:50:00 Registered Surgical Day Care [facility] [id number] [facility] 2018-05-17 11:10:00 2018-05-17 11:10:00 Registered Surgical Day Care [facility] [id number] [facility] Results Test Description Test Time Test Comments Results Result Comments Source Bedside Glucose 2019-09-26 16:10:00 Test Item Bedside Glucose (test code = 68755-9) 214 70-120 H Meter ID: [id number][facility] DallasHemoglobin2020-01-07 06:24:00* Test Item Value Reference Range Interpretation Comments Hemoglobin (test code = 79378-3) 7.8 14.0-18.0 L [facility]emat[facility]rit2020-01-07 06:24:00* Test Item Value Reference Range Interpretation Comments Hematocrit (test code = 4544-3) 26.4 38.2-49.6 L [facility] 1-2 [id number] 14:44:00 [facility] [address] [address] Patient Name: DIANE OREILLY MR #: [id number] : 1935 Age/Sex: 84/M Req #: [id number] Adm Physician: JORGE LUIS SHIELDS MD Ordered by: JORGE LUIS SHIELDS MD Report #: [id number] [facility]: [facility] Procedure: [id number] D X/KNEE LEFT 1-2 VIEWS Exam Date: 09/25/19 Exam Time: 1350 REPORT STATUS: Signed EXAM INATION: KNEE LEFT 1-2 VIEWS INDICATION: Postoperative COMPARISON : None FINDINGS: Portable AP and crosstable lateral images of the left knee demonstrate postoperative findings of left total knee replacement. Alignment appears anatomic. No unexpected fracture. Hardware is intact. Small amount of subcutaneous soft tissue emphysema. Surgical skin stepan overlie th e anterior knee. Atherosclerotic arterial calcifications. Small joint effusion . 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 Signed by: Jin Peterson MD on 09/25/2019 2:45 PM Dictated By: JIN PETERSON MD 1445 Transcribed By: KIERA on 09/25/19 1445 COPY TO: JORGE LUIS SHIELDS MD CHEST 2 VIEWS 2019-09-22 17:37:[address] [address] Patient Name: DIANE OREILLY MR #: [id number] : 1935 Age/Sex: 84/M Req #: [id number] Adm Physician: Ordered by: JORGE LUIS SHIELDS MD Report #: [id number] Location: OR Room/Bed: Procedure: [id number] DX /CHEST 2 VIEWS Exam Date: 09/22/19 Exam Time: 1700 REPORT STATUS: Signed EXAMINATION: CHEST 2 VIEWS INDICATION: Pre-operative COMPARISON: Chest radio graph 05/20/2019 FINDINGS: LINES/TUBES:Left chest pacer unchanged LUNGS:The left lung is well inflated. The right lung is moderately inflated. Unchanged linear atelectasis/scarring at the right lung base and less so at the right lung apex. No focal consolidation or pulmonary edema. Unchanged righ t hemidiaphragmatic elevation. PLEURA:No pleural effusion or pneumothorax . MEDIASTINUM:The cardiomediastinal silhouette appears unchanged in size an d shape. Atherosclerotic calcifications of the thoracic aorta. BONES/SOFT TISSUES:No acute osseous injury. ABDOMEN:No free air under the diaphragm. IMPRESSION: Unchanged right lung atelectasis/scarring. No focal pneum onia or pulmonary edema. Signed by: Jin Peterson MD on 09/22/2019 5:38 PM Dictated By: JIN PETERSON MD 37 COPY TO: LATIA SHIELDS MD Sodium [id number] 17:21:00* Test Item Value Reference Range Interpretation Comments Sodium Level (test code = 2951-2) 134 136-145 L [facility] [id number] 17:21:00* Test Item Value Reference Range Interpretation Comments Potassium Level (test code = 2823-3) 4.1 3.5-5.1 [facility] DallasChloride [id number] 17:21:00* Test Item Value Reference Range Interpretation Comments Chloride Level (test code = 2075-0) 98 98-107 [facility] DallasCarbon Dioxide [id number] 17:21:00* Test Item Value Reference Range Interpretation Comments Carbon Dioxide Level (test code = 2028-9) 23 22-29 [facility] DallasAnion [id number] 17:21:00* Test Item Value Reference Range Interpretation Comments Anion Gap (test code = 57215-6) 17.1 8-16 H [facility] DallasBlood Urea Dilvrwys1505-59-03 17:21:00* Test Item Value Reference Range Interpretation Comments Blood Urea Nitrogen (test code = 3094-0) 25 7-26 [facility] DallasCreatinine2020-01-03 17:21:00* Test Item Value Reference Range Interpretation Comments Creatinine (test code = 2160-0) 1.75 0.72-1.25 H [facility] DallasBUN/Creatinine Gckue7063-82-05 17:21:00* Test Item Value Reference Range Interpretation Comments BUN/Creatinine Ratio (test code = 3097-3) 14 6-25 [facility] DallasEstimat Glomerular Filtration Rate 2019-09-22 17:21:00* Test Item Value Reference Range Interpretation Comments Estimat Glomerular Filtration Rate (test code = 817250793) 37 >60 L Ranges were taken from the National Kidney Disease Education Program and the [facility] literature.Reference ranges:60 or greater: Ajgmie74-69 ( for 3 consecutive months): Chronic kidney disease 15 or less: Kidney failureChildren's Medical Center DallasGlucose Jrwpc1230-65-95 17:21:00* Test Item Value Reference Range Interpretation Comments Glucose Level (test code = HCS1740) 261 74-118 H [facility] DallasCalcium Azedm7728-45-26 17:21:00* Test Item Value Reference Range Interpretation Comments Calcium Level (test code = 77537-6) 8.5 8.4-10.2 [facility] DallasCreatine Kinase [id number] 03:21:00* Test Item Value Reference Range Interpretation Comments Creatine Kinase MB (test code = 92569-2) 1.20 0-5.0 [facility] Center[facility]35-87-89 03:21:00* Test Item Value Reference Range Interpretation Comments Troponin I (test code = UEH0495) 0.003 0-0.300 [facility] DallasCreatine Kinase [id number] 03:21:00* Test Item Value Reference Range Interpretation Comments Creatine Kinase MB (test code = 76731-8) 1.20 0-5.0 [place] [id number] 03:21:00* Test Item Value Reference Range Interpretation Comments Troponin I (test code = MEE8417) 0.003 0-0.300 [facility] DallasCreatine Kwnuki9596-53-63 03:16:00* Test Item Value Reference Range Interpretation Comments Creatine Kinase (test code = 2157-6) 89 30-200 [facility] DallasCreatine [id number] 03:16:00* Test Item Value Reference Range Interpretation Comments Creatine Kinase (test code = 2157-6) 89 30-200 [facility] DallasCT CHEST [id number] 01:36:00 [place] [address] Patient Name: DIANE OREILLY MR #: [id number] : 1935 Age/Sex: 83/M Req #: [id number] Adm Physician: Ordered by: NILE ALMANZAR MD Report #: [id number] Location: ER Room/Bed: Procedure: [id number] CT/CT CHEST W Exam Date: Exam Time: REPORT STATUS: Signed EXAMINATION: CT of the c hest with contrast, PE protocol. TECHNIQUE: Spiral CT images of the chest were performed from the lung apices through the level of the adrenal glands af ter the IV administration of 100 cc Isovue-370. Thin section reconstructions w ere obtained with special concentration on the pulmonary arteries. COMPAR ANDRES: Chest radiograph same day., Chest CT 07/24/2018 CLINICAL HISTORY:Short ness of breath DISCUSSION: Vasculature: The main pulmonary artery , right and left pulmonary arteries, and their visualized lobar and segmental branches are patent, without filling defect. The pulmonary outflow tract is of normal caliber. There is no ectasia or aneurysmal dilatation of the thoracic aorta. 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 No right ventricular dilatation or septal bowing. Great vessel origins are of normal caliber and configuration. Left subclavian approach implantable cardiac device leads terminate within the right atrial appendage and right ventricle. Lungs: Scattered foci of linear opacity in the upper lobes, compatible with fibrotic change or subsegmental atelectasis. Bandlike atelectasis in the right lower and middle lobes Airways: Trachea, mainstem bronchi, and central lobar and segmental bronchi are patent. Pleura: <There is no evidence of pleural effusion or pneumothorax.> Heart and mediastinum: Visualized portions of the thyroid gland appear normal. No axillary, hilar, or mediastinal lymphadenopathy. Abdomen: Visualized portions of the liver, gallbladder, spleen, pancreas, and adrenals are unremarkable. Mild bilateral nonspecific perinephric fat stranding Bones and soft tissues: No acute osseous abnormalities. Degenerative disc changes of the thoracic spine. IMPRESSION: No pulmonary embolus to the level of the segmental branch pulmonary arteries. Signed by: Dr. Jorge Luis Patnoja M.D. on 05/21/2019 1:49 AM Dictated By: JORGE LUIS PANTOJA MD 0149 Transcribed By: KIERA on 05/21/19 0149 COPY TO: NILE ALMANZAR MD Urine [id number] 23:07:00* Test Item Value Reference Range Interpretation Comments Urine WBC (test code = 5821-4) 0-5 0-5 [facility] [id number] 23:07:00* Test Item Value Reference Range Interpretation Comments Urine RBC (test code = 91556-5) 0-5 0-5 [facility] Utqvjqoh6001-07-50 23:07:00* Test Item Value Reference Range Interpretation Comments Urine Bacteria (test code = 99859-0) NONE NONE [facility] Epithelial [id number] 23:07:00 * Test Item Value Reference Range Interpretation Comments Urine Epithelial Cells (test code = 56573-5) NONE NONE [facility] [id number] 23:07:00* Test Item Value Reference Range Interpretation Comments Urine WBC (test code = 5821-4) 0-5 0-5 [facility] [id number] 23:07:00* Test Item Value Reference Range Interpretation Comments Urine RBC (test code = 83179-1) 0-5 0-5 [facility] [id number] 23:07:00* Test Item Value Reference Range Interpretation Comments Urine Bacteria (test code = 27524-7) NONE NONE [facility] Epithelial Huzes9433-06-22 23:07:00 * Test Item Value Reference Range Interpretation Comments Urine Epithelial Cells (test code = 67042-7) NONE NONE [facility] Gqoko1984-89-13 23:01:00* Test Item Value Reference Range Interpretation Comments Urine Color (test code = 5778-6) YELLOW YELLOW [facility] Btgiunz1050-38-75 23:01:00* Test Item Value Reference Range Interpretation Comments Urine Clarity (test code = 04657-6) CLEAR CLEAR [facility] Dallas[facility] Specific Szeymwd9504-62-71 23:01:00 * Test Item Value Reference Range Interpretation Comments Urine Specific [place] (test code = 5811-5) 1.010 1.010-1.02 5 [facility] [id number] 23:01:00* Test Item Value Reference Range Interpretation Comments Urine pH (test code = 35222-7) 6 5-7 [facility] Leukocyte [id number] 23:01:00* Test Item Value Reference Range Interpretation Comments Urine Leukocyte Esterase (test code = 35594-1) NEGATIVE NEGATIV E [facility] [id number] 23:01:00* Test Item Value Reference Range Interpretation Comments Urine Nitrite (test code = 81697-6) NEGATIVE NEGATIVE [facility] Gmrzacu6197-48-15 23:01:00* Test Item Value Reference Range Interpretation Comments Urine Protein (test code = 20729-2) TRACE NEGATIVE H [facility] Dallas[facility] Glucose (UA)2019-05-20 23:01:00* Test Item Value Reference Range Interpretation Comments Urine Glucose (UA) (test code = 96801-1) 3+ NEGATIVE [facility] [id number] 23:01:00* Test Item Value Reference Range Interpretation Comments Urine Ketones (test code = 72881-2) NEGATIVE NEGATIVE [facility] [id number] 23:01:00* Test Item Value Reference Range Interpretation Comments Urine Urobilinogen (test code = 99068-5) 0.2 0.2-1 [facility] [id number] 23:01:00* Test Item Value Reference Range Interpretation Comments Urine Bilirubin (test code = 1977-8) NEGATIVE NEGATIVE [facility] [id number] 23:01:00* Test Item Value Reference Range Interpretation Comments Urine Blood (test code = 27461-9) NEGATIVE NEGATIVE [facility] [id number] 23:01:00* Test Item Value Reference Range Interpretation Comments Urine Color (test code = 5778-6) YELLOW YELLOW [facility] Qnlekdw2108-85-55 23:01:00* Test Item Value Reference Range Interpretation Comments Urine Clarity (test code = 04016-5) CLEAR CLEAR [facility] Specific [id number] 23:01:00 * Test Item Value Reference Range Interpretation Comments Urine Specific [place] (test code = 5811-5) 1.010 1.010-1.02 5 [facility] [id number] 23:01:00* Test Item Value Reference Range Interpretation Comments Urine pH (test code = 51406-0) 6 5-7 [facility] DallasUrine Leukocyte Cgxcdsrs6285-66-53 23:01:00* Test Item Value Reference Range Interpretation Comments Urine Leukocyte Esterase (test code = 85621-9) NEGATIVE NEGATIV E [facility] Xcpviur2052-77-20 23:01:00* Test Item Value Reference Range Interpretation Comments Urine Nitrite (test code = 45900-6) NEGATIVE NEGATIVE [facility] Axzhjes5130-67-03 23:01:00* Test Item Value Reference Range Interpretation Comments Urine Protein (test code = 13548-8) TRACE NEGATIVE H [facility] DallasUrine Glucose (UA)2019-05-20 23:01:00* Test Item Value Reference Range Interpretation Comments Urine Glucose (UA) (test code = 65991-1) 3+ NEGATIVE [facility] Mgtyzlo6704-66-10 23:01:00* Test Item Value Reference Range Interpretation Comments Urine Ketones (test code = 85809-8) NEGATIVE NEGATIVE [facility] Vcuwweoijnrl2110-40-04 23:01:00* Test Item Value Reference Range Interpretation Comments Urine Urobilinogen (test code = 55386-4) 0.2 0.2-1 [facility] DallasU[facility] Oukshgzjs2809-27-48 23:01:00* Test Item Value Reference Range Interpretation Comments Urine Bilirubin (test code = 1977-8) NEGATIVE NEGATIVE [facility] Fqzgj3104-65-01 23:01:00* Test Item Value Reference Range Interpretation Comments Urine Blood (test code = 24392-7) NEGATIVE NEGATIVE [facility] DallasCHEST SINGLE (PORTABLE)2019-05-20 22:30:00 [facility] [address] [address] Patient Name: DIANE OREILLY MR #: [id number] : 1935 Age/Sex: 83/M Req #: [id number] Adm Physician: Ordered by: NATALIIA DAMON GOLF COURSE DESIGNER Report #: [id number] Location: ER Room/Bed: Procedure: [id number] DX/CHEST SINGLE (PORTABLE) Exam Date: 05/20/19 Exam Time: 2141 REPORT STATUS: Signed Examination: Single AP view of the chest. COMPARISON: 01/30/2019 INDIC ATION: Shortness of breath DISCUSSION: Unchanged left subclavian implantable cardiac device body and leads. Valvular prosthesis also unchanged. Right hemidiaphragmatic elevation with linear opacity in the right lung ba se. No new consolidation or effusion. Stable cardiomediastinal contour wi th tortuosity and atherosclerotic calcification of the thoracic aorta. No acut e osseous abnormality. IMPRESSION: Linear atelectasis or fibrotic jennifer nge in the right lung base with right hemidiaphragmatic elevation, similar to prior. No new consolidation. Signed by: Dr. Jorge Luis Pantoja M.D. on 9 10:33 PM Dictated By: JORGE LUIS PANTOJA MD 32 Transcribed By: KIERA on 05/20/192232 COPY TO: NATALIIA DAMON GOLF COURSE DESIGNER Sodium Lgzyf1655-56-26 22:24:00* Test Item Value Reference Range Interpretation Comments Sodium Level (test code = 2951-2) 138 136-145 [facility] Ubjtj9803-03-06 22:24:00* Test Item Value Reference Range Interpretation Comments Potassium Level (test code = 2823-3) 3.8 3.5-5.1 [facility] DallasChloride Drdof8154-41-24 22:24:00* Test Item Value Reference Range Interpretation Comments Chloride Level (test code = 2075-0) 101 98-107 [facility] DallasCarbon Dioxide Vdbay6956-38-42 22:24:00* Test Item Value Reference Range Interpretation Comments Carbon Dioxide Level (test code = 2028-9) 27 22-29 [facility] DallasAnion Bqi0339-08-78 22:24:00* Test Item Value Reference Range Interpretation Comments Anion Gap (test code = 60652-0) 13.8 8-16 [facility] DallasBlood Urea Fbnmydti1268-41-59 22:24:00* Test Item Value Reference Range Interpretation Comments Blood Urea Nitrogen (test code = 3094-0) 27 7-26 H [facility] DallasCreatinine2019-08-31 22:24:00* Test Item Value Reference Range Interpretation Comments Creatinine (test code = 2160-0) 1.59 0.72-1.25 H [facility] DallasBUN/Creatinine Fzzvg9405-67-68 22:24:00* Test Item Value Reference Range Interpretation Comments BUN/Creatinine Ratio (test code = 3097-3) 17 6-25 [facility] DallasEstimat Glomerular Filtration Rate 2019-05-20 22:24:00* Test Item Value Reference Range Interpretation Comments Estimat Glomerular Filtration Rate (test code = 441048981) 42 >60 L Ranges were taken from the National Kidney Disease Education Program and the [facility] literature.Reference ranges:60 or greater: Kynblx49-81 ( for 3 consecutive months): Chronic kidney disease 15 or less: Kidney failureChildren's Medical Center DallasGlucose Ctipj2601-35-85 22:24:00* Test Item Value Reference Range Interpretation Comments Glucose Level (test code = YLS8442) 350 74-118 H [facility] DallasCalcium Jtrok5233-97-94 22:24:00* Test Item Value Reference Range Interpretation Comments Calcium Level (test code = 02225-5) 8.8 8.4-10.2 [facility] Rhdtqrowx1095-92-64 22:24:00* Test Item Value Reference Range Interpretation Comments Total Bilirubin (test code = 1974-2) 0.2 0.2-1.2 [facility] DallasAspartate Amino Transf (AST/SGOT) 2019-05-20 22:24:00* Test Item Value Reference Range Interpretation Comments Aspartate Amino Transf (AST/SGOT) (test code = Aspartate Amino Transf (AST/SGOT)) 9 5-34 [facility] DallasAlanine Aminotransferase (ALT/SGPT) 2019-05-20 22:24:00* Test Item Value Reference Range Interpretation Comments Alanine Aminotransferase (ALT/SGPT) (test code = 1742-6) < 6 0-55 [facility] Hzoldqr6105-50-99 22:24:00* Test Item Value Reference Range Interpretation Comments Total Protein (test code = 2885-2) 6.2 6.5-8.1 L [facility] DallasAlbumin2019-08-31 22:24:00* Test Item Value Reference Range Interpretation Comments Albumin (test code = 1751-7) 3.1 3.5-5.0 L [facility] DallasGlobulin2019-08-31 22:24:00* Test Item Value Reference Range Interpretation Comments Globulin (test code = 36967-3) 3.1 2.3-3.5 [facility] DallasAlbumin/Globulin Jzejc7904-80-07 22:24:00 * Test Item Value Reference Range Interpretation Comments Albumin/Globulin Ratio (test code = 1759-0) 1.0 0.8-2.0 [facility] DallasAlkaline Vzgtqbeaozv4212-46-49 22:24:00* Test Item Value Reference Range Interpretation Comments Alkaline Phosphatase (test code = 6768-6) 95 40-150 [facility] Zuefvxsig1888-88-65 22:24:00* Test Item Value Reference Range Interpretation Comments Total Bilirubin (test code = 1974-2) 0.2 0.2-1.2 [facility] DallasAspartate Amino Transf (AST/SGOT) 2019-05-20 22:24:00* Test Item Value Reference Range Interpretation Comments Aspartate Amino Transf (AST/SGOT) (test code = Aspartate Amino Transf (AST/SGOT)) 9 5-34 [facility] DallasAlanine Aminotransferase (ALT/SGPT) 2019-05-20 22:24:00* Test Item Value Reference Range Interpretation Comments Alanine Aminotransferase (ALT/SGPT) (test code = 1742-6) < 6 0-55 [facility] DallasTotal Xgluvqj9864-05-16 22:24:00* Test Item Value Reference Range Interpretation Comments Total Protein (test code = 2885-2) 6.2 6.5-8.1 L [facility] DallasAlbumin2019-08-31 22:24:00* Test Item Value Reference Range Interpretation Comments Albumin (test code = 1751-7) 3.1 3.5-5.0 L [facility] DallasGlobulin2019-08-31 22:24:00* Test Item Value Reference Range Interpretation Comments Globulin (test code = 68158-0) 3.1 2.3-3.5 [facility] DallasAlbumin/Globulin Gyemy9142-30-41 22:24:00 * Test Item Value Reference Range Interpretation Comments Albumin/Globulin Ratio (test code = 1759-0) 1.0 0.8-2.0 [facility] DallasAlkaline Xuomwkqhbat4063-74-86 22:24:00* Test Item Value Reference Range Interpretation Comments Alkaline Phosphatase (test code = 6768-6) 95 40-150 [facility] DallasB-Type Natriuretic Xgkshkz8216-08-84 22:23:00* Test Item Value Reference Range Interpretation Comments B-Type Natriuretic Peptide (test code = 00738-9) 167.2 0-100 H [facility] DallasB-Type Natriuretic Opghvnf1455-25-30 22:23:00* Test Item Value Reference Range Interpretation Comments B-Type Natriuretic Peptide (test code = 79833-0) 167.2 0-100 H [facility] DallasProthrombin Bnrv1788-52-42 21:59:00* Test Item Value Reference Range Interpretation Comments Prothrombin Time (test code = 5902-2) 24.0 11.9-14.5 H [facility] DallasProthromb Time International Ratio 2019-05-20 21:59:00* Test Item Value Reference Range Interpretation Comments Prothromb Time International Ratio (test code = 6301-6) 2.07 Oral Anticoagulant Therapy INR Values:1. Low Intensity Therapy 1.5 - 2.02 . Moderate Intensity Therapy 2.0 - 3.03. High Intensity Therapy(1) 2.5 - 3. 54. High Intensity Therapy(2) 3.0 - 4.05. Panic Value INR > 5.0 [facility] DallasActivated Partial Thromboplast Time 2019-05-20 21:59:00* Test Item Value Reference Range Interpretation Comments Activated Partial Thromboplast Time (test code = 00222-5) 41.3 23.8-35.5 H [facility] DallasProthrombin Aaye2268-67-13 21:59:00* Test Item Value Reference Range Interpretation Comments Prothrombin Time (test code = 5902-2) 24.0 11.9-14.5 H [facility] DallasProthromb Time International Ratio 2019-05-20 21:59:00* Test Item Value Reference Range Interpretation Comments Prothromb Time International Ratio (test code = 6301-6) 2.07 Oral Anticoagulant Therapy INR Values:1. Low Intensity Therapy 1.5 - 2.02 . Moderate Intensity Therapy 2.0 - 3.03. High Intensity Therapy(1) 2.5 - 3. 54. High Intensity Therapy(2) 3.0 - 4.05. Panic Value INR > 5.0 [facility] DallasActivated Partial Thromboplast Time 2019-05-20 21:59:00* Test Item Value Reference Range Interpretation Comments Activated Partial Thromboplast Time (test code = 31494-1) 41.3 23.8-35.5 H [facility] DallasWhite Blood Plvmn7341-47-58 21:48:00* Test Item Value Reference Range Interpretation Comments White Blood Count (test code = 6690-2) 9.82 4.8-10.8 [facility] DallasRed Blood Jmnbc2837-28-07 21:48:00* Test Item Value Reference Range Interpretation Comments Red Blood Count (test code = 789-8) 3.50 4.3-5.7 L [facility] DallasHemoglobin2019-08-31 21:48:00* Test Item Value Reference Range Interpretation Comments Hemoglobin (test code = 01015-0) 9.0 14.0-18.0 L [facility] DallasHematocrit2019-08-31 21:48:00* Test Item Value Reference Range Interpretation Comments Hematocrit (test code = 4544-3) 29.4 38.2-49.6 L [facility] DallasMean Corpuscular Gykvtl2849-40-44 21:48:00* Test Item Value Reference Range Interpretation Comments Mean Corpuscular Volume (test code = 787-2) 84.0 81-99 [facility] DallasMean Corpuscular Krksczcmgd7893-21-96 21:48:00* Test Item Value Reference Range Interpretation Comments Mean Corpuscular Hemoglobin (test code = 785-6) 25.7 28-32 L [facility] DallasMean Corpuscular Hemoglobin Concent 2019-05-20 21:48:00* Test Item Value Reference Range Interpretation Comments Mean Corpuscular Hemoglobin Concent (test code = 786-4) 30.6 31-35 L [facility] DallasRed Cell Distribution Widnr9206-89-65 21:48:00* Test Item Value Reference Range Interpretation Comments Red Cell Distribution Width (test code = 37627-1) 15.8 11.7 -14.4 H [facility] DallasPlatelet Bxlti1885-09-38 21:48:00* Test Item Value Reference Range Interpretation Comments Platelet Count (test code = 777-3) 246 140-360 [facility] DallasNeutrophils (%) (Auto)2019-05-20 21:48:00 * Test Item Value Reference Range Interpretation Comments Neutrophils (%) (Auto) (test code = 31326-5) 73.7 38.7-80.0 [facility] DallasLymphocytes (%) (Auto)2019-05-20 21:48:00 * Test Item Value Reference Range Interpretation Comments Lymphocytes (%) (Auto) (test code = 736-9) 15.0 18.0-39.1 L [facility] DallasMonocytes (%) (Auto)2019-05-20 21:48:00* Test Item Value Reference Range Interpretation Comments Monocytes (%) (Auto) (test code = 5905-5) 7.2 4.4-11.3 [facility] DallasEosinophils (%) (Auto)2019-05-20 21:48:00 * Test Item Value Reference Range Interpretation Comments Eosinophils (%) (Auto) (test code = 713-8) 2.9 0.0-6.0 [facility] DallasBasophils (%) (Auto)2019-05-20 21:48:00* Test Item Value Reference Range Interpretation Comments Basophils (%) (Auto) (test code = 706-2) 0.5 0.0-1.0 [facility] DallasIM GRANULOCYTES %2019-05-20 21:48:00* Test Item Value Reference Range Interpretation Comments IM GRANULOCYTES % (test code = IM GRANULOCYTES %) 0.7 0.0- 1.0 [facility] DallasNeutrophils # (Auto)2019-05-20 21:48:00* Test Item Value Reference Range Interpretation Comments Neutrophils # (Auto) (test code = 751-8) 7.2 2.1-6.9 H [facility] DallasLymphocytes # (Auto)2019-05-20 21:48:00* Test Item Value Reference Range Interpretation Comments Lymphocytes # (Auto) (test code = 83621-3) 1.5 1.0-3.2 [facility] DallasMonocytes # (Auto)2019-05-20 21:48:00* Test Item Value Reference Range Interpretation Comments Monocytes # (Auto) (test code = 742-7) 0.7 0.2-0.8 [facility] DallasEosinophils # (Auto)2019-05-20 21:48:00* Test Item Value Reference Range Interpretation Comments Eosinophils # (Auto) (test code = 711-2) 0.3 0.0-0.4 [facility] DallasBasophils # (Auto)2019-05-20 21:48:00* Test Item Value Reference Range Interpretation Comments Basophils # (Auto) (test code = 704-7) 0.1 0.0-0.1 [facility] DallasAbsolute Immature Granulocyte (auto 2019-05-20 21:48:00* Test Item Value Reference Range Interpretation Comments Absolute Immature Granulocyte (auto (gilberto t code = Absolute Immature Granulocyte (auto) 0.07 0-0.1 [facility] DallasWhite Blood Wfjdr3352-02-36 21:48:00* Test Item Value Reference Range Interpretation Comments White Blood Count (test code = 6690-2) 9.82 4.8-10.8 [facility] DallasRed Blood Gqotx1832-00-30 21:48:00* Test Item Value Reference Range Interpretation Comments Red Blood Count (test code = 789-8) 3.50 4.3-5.7 L [facility] DallasMean Corpuscular Ezvcys7531-55-31 21:48:00* Test Item Value Reference Range Interpretation Comments Mean Corpuscular Volume (test code = 787-2) 84.0 81-99 [facility] DallasMean Corpuscular Fpascmxmrt5138-46-78 21:48:00* Test Item Value Reference Range Interpretation Comments Mean Corpuscular Hemoglobin (test code = 785-6) 25.7 28-32 L [facility] DallasMean Corpuscular Hemoglobin Concent 2019-05-20 21:48:00* Test Item Value Reference Range Interpretation Comments Mean Corpuscular Hemoglobin Concent (test code = 786-4) 30.6 31-35 L [facility] DallasRed Cell Distribution Wqdbz3940-99-40 21:48:00* Test Item Value Reference Range Interpretation Comments Red Cell Distribution Width (test code = 41598-5) 15.8 11.7 -14.4 H [facility] DallasPlatelet Lngge1364-61-92 21:48:00* Test Item Value Reference Range Interpretation Comments Platelet Count (test code = 777-3) 246 140-360 [facility] DallasNeutrophils (%) (Auto)2019-05-20 21:48:00 * Test Item Value Reference Range Interpretation Comments Neutrophils (%) (Auto) (test code = 23883-5) 73.7 38.7-80.0 [facility] DallasLymphocytes (%) (Auto)2019-05-20 21:48:00 * Test Item Value Reference Range Interpretation Comments Lymphocytes (%) (Auto) (test code = 736-9) 15.0 18.0-39.1 L [facility] DallasMonocytes (%) (Auto)2019-05-20 21:48:00* Test Item Value Reference Range Interpretation Comments Monocytes (%) (Auto) (test code = 5905-5) 7.2 4.4-11.3 [facility] DallasEosinophils (%) (Auto)2019-05-20 21:48:00 * Test Item Value Reference Range Interpretation Comments Eosinophils (%) (Auto) (test code = 713-8) 2.9 0.0-6.0 [facility] DallasBasophils (%) (Auto)2019-05-20 21:48:00* Test Item Value Reference Range Interpretation Comments Basophils (%) (Auto) (test code = 706-2) 0.5 0.0-1.0 [facility] DallasIM GRANULOCYTES %2019-05-20 21:48:00* Test Item Value Reference Range Interpretation Comments IM GRANULOCYTES % (test code = IM GRANULOCYTES %) 0.7 0.0- 1.0 [facility] DallasNeutrophils # (Auto)2019-05-20 21:48:00* Test Item Value Reference Range Interpretation Comments Neutrophils # (Auto) (test code = 751-8) 7.2 2.1-6.9 H [facility] DallasLymphocytes # (Auto)2019-05-20 21:48:00* Test Item Value Reference Range Interpretation Comments Lymphocytes # (Auto) (test code = 40579-2) 1.5 1.0-3.2 [facility] DallasMonocytes # (Auto)2019-05-20 21:48:00* Test Item Value Reference Range Interpretation Comments Monocytes # (Auto) (test code = 742-7) 0.7 0.2-0.8 [facility] DallasEosinophils # (Auto)2019-05-20 21:48:00* Test Item Value Reference Range Interpretation Comments Eosinophils # (Auto) (test code = 711-2) 0.3 0.0-0.4 [facility] DallasBasophils # (Auto)2019-05-20 21:48:00* Test Item Value Reference Range Interpretation Comments Basophils # (Auto) (test code = 704-7) 0.1 0.0-0.1 [facility] DallasAbsolute Immature Granulocyte (auto 2019-05-20 21:48:00* Test Item Value Reference Range Interpretation Comments Absolute Immature Granulocyte (auto (gilberto t code = Absolute Immature Granulocyte (auto) 0.07 0-0.1 [facility] DallasCHEST 2 ZHQCQ5134-20-71 16:11:00 [address] [address] Patient Name: DIANE OREILLY MR #: [id number] : 1935 Age/Sex: 83/M Req #: [id number] Adm Physician: Ordered by: PATI BENJAMIN MD Report #: [id number] Location: [facility] Room/Bed: Procedure: [id number] DX/ CHEST 2 VIEWS Exam Date: Exam Time: REPORT STATUS: Signed EXAMINATION: PA and l ateral views of the chest. 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 Interval improvement in aeration of the right lung base relative to 12/22/2018. Small am ount of residual linear opacity persists laterally, which may represent residu al atelectasis or postinflammatory fibrotic change. No new airspace consolidat ion, pleural effusion, or pneumothorax. Stable cardiomediastinal contour with atherosclerotic calcification of the thoracic aorta. No acute osseous abn ormality. Posttraumatic deformity of the posterior right fourth rib. IMPR ESSION: Stable cardiomediastinal contour with interval resolution of pulmonar y venous congestion. Improved aeration of the right lung base with minima l residual atelectasis or fibrotic change. No new consolidations. Signed by: Dr. Jorge Luis Pantoja M.D. on 01/30/2019 4:16 PM Dictated By: JORGE LUIS PANTOJA MD 1616 Transcribed By: KIERA on 01/30/19 1616 COPY TO: PATI BENJAMIN MD Bedside Jnvmatj7855-22-88 11:29:00* Test Item Value Reference Range Interpretation Comments Bedside Glucose (test code = 19897-9) 307 70-120 H Meter ID: [id number]'s Medical Center DallasBedside Glucose 2018-12-28 11:29:00* Test Item Value Reference Range Interpretation Comments Bedside Glucose (test code = 87702-6) 307 70-120 H Meter ID: [id number]'s Medical Center DallasProthrombin Time 2018-12-28 05:58:00* Test Item Value Reference Range Interpretation Comments Prothrombin Time (test code = 5902-2) 21.5 11.9-14.5 H [facility] DallasProthromb Time International Ratio 2018-12-28 05:58:00* Test Item Value Reference Range Interpretation Comments Prothromb Time International Ratio (test code = 6301-6) 1.80 Oral Anticoagulant Therapy INR Values:1. Low Intensity Therapy 1.5 - 2.02 . Moderate Intensity Therapy 2.0 - 3.03. High Intensity Therapy(1) 2.5 - 3. 54. High Intensity Therapy(2) 3.0 - 4.05. Panic Value INR > 5.0 [facility] 2 YRVMJ6200-06-82 07:27:00 [facility] [address] [address] Patient Name: DIANE OREILLY MR #: [id number] : 1935 Age/Sex: 83/M Req #: [id number] Adm Physician: VIDYA BROWNLEE MD Ordered by: VIDYA BROWNLEE MD Report #: [id number] Location: MED/SURG2 Room/Bed: [facility] Procedure: [id number] DX/ WRIST LEFT 2 VIEWS Exam Date: 12/27/18 Exam Time: 06 50 REPORT STATUS: Signed Exam : Left wrist radiographs-2 views History: Left wrist pain. Comparison : None. Findings: There is mild widening of scapholunate interval, brynn uring up to 4 mm, suggestive of prior ligamentous injury. There is mild proxim al migration of the capitate. 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 No evidence of distal radioulnar degenerative changes. There is an old traumatic deformity of the radial styloid. No evidence of ac cabazon fracture or malalignment. There are moderate degenerative changes at the first carpometacarpal joint. 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 No acute osseous abnormality. Signed by: Dr. Mary Anne Lewis MD on 12/27/2018 7:33 AM Dictated By: FADIA LEWIS MD 0733 Transcribed By: KIERA on 12/27/18 0 733 COPY TO: VIDYA BROWNLEE MD Blood Ibvjpbr7362-85-59 03:20:00* Test Item Value Reference Range Interpretation Comments Blood Culture (test code = 88667269) NO GROWTH AFTER 5 DAYS, [facility] Jkxnfua9692-10-09 03:20:00* Test Item Value Reference Range Interpretation Comments Blood Culture (test code = 07746034) NO GROWTH AFTER 5 DAYS, FINAL REPORT [facility] Ithxbxg5108-43-65 03:20:00* Test Item Value Reference Range Interpretation Comments Blood Culture (test code = 48364994) NO GROWTH AFTER 5 DAYS, FINAL [facility]PORT [facility] Yvfvs1560-65-02 07:44:00* Test Item Value Reference Range Interpretation Comments Sodium Level (test code = 2951-2) 133 136-145 L [facility] DallasPotassium Rbksp9480-96-77 07:44:00* Test Item Value Reference Range Interpretation Comments Potassium Level (test code = 2823-3) 4.0 3.5-5.1 [facility] DallasChloride Qzjvb6513-63-05 07:44:00* Test Item Value Reference Range Interpretation Comments Chloride Level (test code = 2075-0) 92 98-107 L [facility] DallasCarbon Dioxide Mxmyu0453-23-63 07:44:00* Test Item Value Reference Range Interpretation Comments Carbon Dioxide Level (test code = 2028-9) 32 22-29 H [facility] DallasAnion Ebt0158-35-95 07:44:00* Test Item Value Reference Range Interpretation Comments Anion Gap (test code = 57280-0) 13.0 8-16 [facility] DallasBlood Urea Mfihjkhe9038-03-93 07:44:00* Test Item Value Reference Range Interpretation Comments Blood Urea Nitrogen (test code = 3094-0) 43 7-26 H [facility] DallasCreatinine2019-04-08 07:44:00* Test Item Value Reference Range Interpretation Comments Creatinine (test code = 2160-0) 1.54 0.72-1.25 H [facility] DallasBUN/Creatinine Ywkvj8824-11-25 07:44:00* Test Item Value Reference Range Interpretation Comments BUN/Creatinine Ratio (test code = 3097-3) 28 6-25 H [facility] DallasEstimat Glomerular Filtration Rate 2018-12-26 07:44:00* Test Item Value Reference Range Interpretation Comments Estimat Glomerular Filtration Rate (test code = 609061154) 43 >60 L Ranges were taken from the National Kidney Disease Education Program and the [facility] Kidney Foundation literature.Reference ranges:60 or greater: Jcubtb35-64 ( for 3 consecutive months): Chronic kidney disease 15 or less: Kidney failureChildren's Medical Center DallasGlucose Mljhn6284-22-79 07:44:00* Test Item Value Reference Range Interpretation Comments Glucose Level (test code = NBV6633) 457 74-118 Results repeated and called to QUINN KIMBALL at 0744 on 12/26/18 by Hossein kelly back and verified.[facility] DallasCalcium Level 2018-12-26 07:44:00* Test Item Value Reference Range Interpretation Comments Calcium Level (test code = 13377-3) 9.1 8.4-10.2 [facility]Total Rlxvtjfxq2157-07-54 07:44:00* Test Item Value Reference Range Interpretation Comments Total Bilirubin (test code = 1975-2) 0.2 0.2-1.2 [facility] DallasAspartate Amino Transf (AST/SGOT) 2018-12-26 07:44:00* Test Item Value Reference Range Interpretation Comments Aspartate Amino Transf (AST/SGOT) (test code = Aspartate Amino Transf (AST/SGOT)) 13 5-34 [facility] DallasAlanine Aminotransferase (ALT/SGPT) 2018-12-26 07:44:00* Test Item Value Reference Range Interpretation Comments Alanine Aminotransferase (ALT/SGPT) (test code = 1742-6) 14 0-55 [facility] DallasTotal Ydebokf3929-28-88 07:44:00* Test Item Value Reference Range Interpretation Comments Total Protein (test code = 2885-2) 5.7 6.5-8.1 L [facility] DallasAlbumin2019-04-08 07:44:00* Test Item Value Reference Range Interpretation Comments Albumin (test code = 1751-7) 2.5 3.5-5.0 L [facility] DallasGlobulin2019-04-08 07:44:00* Test Item Value Reference Range Interpretation Comments Globulin (test code = 28176-6) 3.2 2.3-3.5 [facility] DallasAlbumin/Globulin Vuxvg1462-12-52 07:44:00 * Test Item Value Reference Range Interpretation Comments Albumin/Globulin Ratio (test code = 1759-0) 0.8 0.8-2.0 [facility] DallasAlkaline Uowcssrirso4283-16-37 07:44:00* Test Item Value Reference Range Interpretation Comments Alkaline Phosphatase (test code = 6768-6) 78 40-150 [facility] DallasMagnesium Wxasv9929-93-55 07:43:00* Test Item Value Reference Range Interpretation Comments Magnesium Level (test code = 83932-2) 1.7 1.3-2.1 [facility] DallasMagnesium Lqtzt7523-78-04 07:43:00* Test Item Value Reference Range Interpretation Comments Magnesium Level (test code = 14854-3) 1.7 1.3-2.1 [facility] DallasMagnesium Xketd9148-82-68 07:43:00* Test Item Value Reference Range Interpretation Comments Magnesium Level (test code = 04812-0) 1.7 1.3-2.1 [facility] DallasWhite Blood Gamps9359-82-22 06:56:00* Test Item Value Reference Range Interpretation Comments White Blood Count (test code = 6690-2) 10.83 4.8-10.8 H [facility] DallasRed Blood Cayvd2743-15-65 06:56:00* Test Item Value Reference Range Interpretation Comments Red Blood Count (test code = 789-8) 3.64 4.3-5.7 L [facility] DallasHemoglobin2019-04-08 06:56:00* Test Item Value Reference Range Interpretation Comments Hemoglobin (test code = 92189-6) 10.7 14.0-18.0 L [facility] DallasHematocrit2019-04-08 06:56:00* Test Item Value Reference Range Interpretation Comments Hematocrit (test code = 4544-3) 32.3 38.2-49.6 L [facility] DallasMean Corpuscular Qyqijt1083-07-00 06:56:00* Test Item Value Reference Range Interpretation Comments Mean Corpuscular Volume (test code = 787-2) 88.7 81-99 [facility] DallasMean Corpuscular Szywwarkru5141-77-53 06:56:00* Test Item Value Reference Range Interpretation Comments Mean Corpuscular Hemoglobin (test code = 785-6) 29.4 28-32 [facility] DallasMean Corpuscular Hemoglobin Concent 2018-12-26 06:56:00* Test Item Value Reference Range Interpretation Comments Mean Corpuscular Hemoglobin Concent (test code = 786-4) 33.1 31-35 [facility] DallasRed Cell Distribution Twzkd7973-14-15 06:56:00* Test Item Value Reference Range Interpretation Comments Red Cell Distribution Width (test code = 82186-1) 15.0 11.7 -14.4 H [facility] DallasPlatelet Rktfu7242-99-94 06:56:00* Test Item Value Reference Range Interpretation Comments Platelet Count (test code = 777-3) 250 140-360 [facility] DallasNeutrophils (%) (Auto)2018-12-26 06:56:00 * Test Item Value Reference Range Interpretation Comments Neutrophils (%) (Auto) (test code = 75600-5) 87.8 38.7-80.0 H [facility] DallasLymphocytes (%) (Auto)2018-12-26 06:56:00 * Test Item Value Reference Range Interpretation Comments Lymphocytes (%) (Auto) (test code = 736-9) 6.3 18.0-39.1 L [facility] DallasMonocytes (%) (Auto)2018-12-26 06:56:00* Test Item Value Reference Range Interpretation Comments Monocytes (%) (Auto) (test code = 5905-5) 3.4 4.4-11.3 L [facility] DallasEosinophils (%) (Auto)2018-12-26 06:56:00 * Test Item Value Reference Range Interpretation Comments Eosinophils (%) (Auto) (test code = 713-8) 0.0 0.0-6.0 [facility] DallasBasophils (%) (Auto)2018-12-26 06:56:00* Test Item Value Reference Range Interpretation Comments Basophils (%) (Auto) (test code = 706-2) 0.3 0.0-1.0 [facility] DallasIM GRANULOCYTES %2018-12-26 06:56:00* Test Item Value Reference Range Interpretation Comments IM GRANULOCYTES % (test code = IM GRANULOCYTES %) 2.2 0.0- 1.0 H [facility] DallasNeutrophils # (Auto)2018-12-26 06:56:00* Test Item Value Reference Range Interpretation Comments Neutrophils # (Auto) (test code = 751-8) 9.5 2.1-6.9 H [facility] DallasLymphocytes # (Auto)2018-12-26 06:56:00* Test Item Value Reference Range Interpretation Comments Lymphocytes # (Auto) (test code = 06089-0) 0.7 1.0-3.2 L [facility] DallasMonocytes # (Auto)2018-12-26 06:56:00* Test Item Value Reference Range Interpretation Comments Monocytes # (Auto) (test code = 742-7) 0.4 0.2-0.8 [facility] DallasEosinophils # (Auto)2018-12-26 06:56:00* Test Item Value Reference Range Interpretation Comments Eosinophils # (Auto) (test code = 711-2) 0.0 0.0-0.4 [facility] DallasBasophils # (Auto)2018-12-26 06:56:00* Test Item Value Reference Range Interpretation Comments Basophils # (Auto) (test code = 704-7) 0.0 0.0-0.1 [facility] DallasAbsolute Immature Granulocyte (auto 2018-12-26 06:56:00* Test Item Value Reference Range Interpretation Comments Absolute Immature Granulocyte (auto (gilberto t code = Absolute Immature Granulocyte (auto) 0.24 0-0.1 H [facility] DallasCreatine Uindsi3323-64-66 11:49:00* Test Item Value Reference Range Interpretation Comments Creatine Kinase (test code = 2157-6) 28 30-200 L [facility] DallasCreatine Kinase YT1864-11-40 11:47:00* Test Item Value Reference Range Interpretation Comments Creatine Kinase MB (test code = 72097-4) 1.10 0-5.0 [facility] DallasTroponin J4152-84-51 11:47:00* Test Item Value Reference Range Interpretation Comments Troponin I (test code = QKE0363) 0.035 0-0.300 [facility] DallasCHES SINGLE (PORTABLE)2018-12-22 05:54:00 [place] [address] Patient Name: DIANE OREILLY MR #: [id number] : 1935 Age/Sex: 83/M Req #: [id number] Adm Physician: VIDYA BROWNLEE MD Ordered by: SUNNY WU MD Report #: [id number] Location: [facility] Room/Bed: [facility] Procedure: [id number] DX/CHEST SINGLE (PORTABLE) Exam Date: Exam Time: REPORT STATUS: Signed Examination: Single AP view of the chest. COMPARISON: 12/21/2018 INDICATION: pneumo sandra DISCUSSION: Lines/tubes: None. Lungs: Stable central v enous congestion with perihilar opacities. Pleura: No effusion or pneumoth orax. Heart and mediastinum: The heart and the mediastinum are unremarkabl e. Bones and soft tissues: No acute bony abnormalities. IMPRESSI ON: 1. Stable central venous congestion with perihilar opacities. S igned by: Dr. Chester Valdovinos M.D. on 12/22/2018 5:57 AM Dictated By: GINA VALDOVINOS MD 6 Transcribed By: KIERA on 12/22/18556 COPY TO: SUNNY WU MD Urine KPM8571-79-84 20:41:00* Test Item Value Reference Range Interpretation Comments Urine WBC (test code = 5821-4) NONE 0-5 [facility] DallasUrine GKM4980-55-73 20:41:00* Test Item Value Reference Range Interpretation Comments Urine RBC (test code = 45246-3) NONE 0-5 [facility] DallasUrine Dplsafxu2763-48-32 20:41:00* Test Item Value Reference Range Interpretation Comments Urine Bacteria (test code = 31562-6) MODERATE NONE H [facility] DallasUrine Epithelial Cwhsq2936-53-57 20:41:00 * Test Item Value Reference Range Interpretation Comments Urine Epithelial Cells (test code = 17582-5) NONE NONE [facility] DallasUrine Amorphous Bfvkupee2897-28-33 20:41:00* Test Item Value Reference Range Interpretation Comments Urine Amorphous Sediment (test code = 8246-1) MODERATE FEW H [facility] DallasUrine Amorphous Vwdjgnym3069-65-93 20:41:00* Test Item Value Reference Range Interpretation Comments Urine Amorphous Sediment (test code = 8246-1) MODERATE FEW H [facility] DallasUrine Amorphous Vkpzkeew9466-14-98 20:41:00* Test Item Value Reference Range Interpretation Comments Urine Amorphous Sediment (test code = 8246-1) MODERATE FEW H [facility] DallasUrine Vejsr2509-37-98 20:30:00* Test Item Value Reference Range Interpretation Comments Urine Color (test code = 5778-6) YELLOW YELLOW [facility] DallasUrine Szzujxl2874-69-12 20:30:00* Test Item Value Reference Range Interpretation Comments Urine Clarity (test code = 50292-1) SL CLOUDY CLEAR H [facility] DallasUrine Specific Cuunhzp7971-28-55 20:30:00 * Test Item Value Reference Range Interpretation Comments Urine Specific [place] (test code = 5811-5) 1.025 1.010-1.02 5 [facility] DallasUrine iP9206-69-45 20:30:00* Test Item Value Reference Range Interpretation Comments Urine pH (test code = 23012-2) 5 5-7 [facility] DallasU[facility] Leukocyte Vidqtcmj3800-52-64 20:30:00* Test Item Value Reference Range Interpretation Comments Urine Leukocyte Esterase (test code = 5799-2) NEGATIVE NEGATIVE [facility] Gvlasom6490-76-31 20:30:00* Test Item Value Reference Range Interpretation Comments Urine Nitrite (test code = 67945-6) NEGATIVE NEGATIVE [facility] Cvqejpx0463-38-27 20:30:00* Test Item Value Reference Range Interpretation Comments Urine Protein (test code = 5804-0) 2+ NEGATIVE H [facility] Glucose (UA)2018-12-21 20:30:00* Test Item Value Reference Range Interpretation Comments Urine Glucose (UA) (test code = 2349-9) 2+ NEGATIVE H [facility] Zomzmec6634-71-84 20:30:00* Test Item Value Reference Range Interpretation Comments Urine Ketones (test code = 63917-8) NEGATIVE NEGATIVE [facility] DallasU[facility] Xnbmrqwwpwqx1163-88-14 20:30:00* Test Item Value Reference Range Interpretation Comments Urine Urobilinogen (test code = 85326-5) 0.2 0.2-1 [facility] DallasUrine Rhvgkwvob4741-17-24 20:30:00* Test Item Value Reference Range Interpretation Comments Urine Bilirubin (test code = 1978-6) NEGATIVE NEGATIVE [facility] DallasUrine Veivq4760-77-29 20:30:00* Test Item Value Reference Range Interpretation Comments Urine Blood (test code = 16420-5) TRACE NEGATIVE H [facility] DallasDifferential Total Cells Counted 2018-12-21 20:19:00* Test Item Value Reference Range Interpretation Comments Differential Total Cells Counted (test code = Differen tial Total Cells Counted) 100 [facility] DallasNeutrophils % (Manual)2018-12-21 20:19:00 * Test Item Value Reference Range Interpretation Comments Neutrophils % (Manual) (test code = 16907-8) 85 40-74 H [facility] DallasLymphocytes % (Manual)2018-12-21 20:19:00 * Test Item Value Reference Range Interpretation Comments Lymphocytes % (Manual) (test code = 737-7) 1 19-48 L [facility] DallasMonocytes % (Manual)2018-12-21 20:19:00* Test Item Value Reference Range Interpretation Comments Monocytes % (Manual) (test code = 744-3) 13 3.4-9.0 H [facility] DallasReactive Zyjjwnngtwp1929-95-20 20:19:00* Test Item Value Reference Range Interpretation Comments Reactive Lymphocytes (test code = 15796-9) 1 [facility] DallasPlatelet Sydailpo4478-15-33 20:19:00* Test Item Value Reference Range Interpretation Comments Platelet Estimate (test code = 67952-0) ADEQUATE [facility] DallasPlatelet Morphology Abcepof6170-91-48 20:19:00* Test Item Value Reference Range Interpretation Comments Platelet Morphology Comment (test code = 25258-5) FEW LARGE [facility] DallasMacrocytosis2019-04-03 20:19:00* Test Item Value Reference Range Interpretation Comments Macrocytosis (test code = 738-5) SLIGHT [facility] DallasRed Cell Morphology Jpumrfq7854-57-86 20:19:00* Test Item Value Reference Range Interpretation Comments Red Cell Morphology Comment (test code = 6742-1) NORMAL [facility] DallasDifferential Total Cells Counted 2018-12-21 20:19:00* Test Item Value Reference Range Interpretation Comments Differential Total Cells Counted (test code = Differen tial Total Cells Counted) 100 [facility] DallasNeutrophils % (Manual)2018-12-21 20:19:00 * Test Item Value Reference Range Interpretation Comments Neutrophils % (Manual) (test code = 84945-3) 85 40-74 H [facility] DallasLymphocytes % (Manual)2018-12-21 20:19:00 * Test Item Value Reference Range Interpretation Comments Lymphocytes % (Manual) (test code = 737-7) 1 19-48 L [facility] DallasMonocytes % (Manual)2018-12-21 20:19:00* Test Item Value Reference Range Interpretation Comments Monocytes % (Manual) (test code = 744-3) 13 3.4-9.0 H [facility] DallasReactive Cozvtuceflz5851-34-35 20:19:00* Test Item Value Reference Range Interpretation Comments Reactive Lymphocytes (test code = 79348-0) 1 [facility] DallasPlatelet Vowqhilw1956-14-36 20:19:00* Test Item Value Reference Range Interpretation Comments Platelet Estimate (test code = 35611-5) ADEQUATE [facility] DallasPlatelet Morphology Rjkikxs5365-87-76 20:19:00* Test Item Value Reference Range Interpretation Comments Platelet Morphology Comment (test code = 21144-9) FEW LARGE [facility] DallasMacrocytosis2019-04-03 20:19:00* Test Item Value Reference Range Interpretation Comments Macrocytosis (test code = 738-5) SLIGHT [facility] DallasRed Cell Morphology Fdqihih5609-08-61 20:19:00* Test Item Value Reference Range Interpretation Comments Red Cell Morphology Comment (test code = 6742-1) NORMAL [facility] DallasDifferential Total Cells Counted 2018-12-21 20:19:00* Test Item Value Reference Range Interpretation Comments Differential Total Cells Counted (test code = Differen tial Total Cells Counted) 100 [facility] DallasNeutrophils % (Manual)2018-12-21 20:19:00 * Test Item Value Reference Range Interpretation Comments Neutrophils % (Manual) (test code = 40987-9) 85 40-74 H [facility] DallasLymphocytes % (Manual)2018-12-21 20:19:00 * Test Item Value Reference Range Interpretation Comments Lymphocytes % (Manual) (test code = 737-7) 1 19-48 L [facility] DallasMonocytes % (Manual)2018-12-21 20:19:00* Test Item Value Reference Range Interpretation Comments Monocytes % (Manual) (test code = 744-3) 13 3.4-9.0 H [facility] DallasReactive Socklhkyynr2579-77-51 20:19:00* Test Item Value Reference Range Interpretation Comments Reactive Lymphocytes (test code = 23290-3) 1 [facility] DallasPlatelet Pijqbgty9160-57-56 20:19:00* Test Item Value Reference Range Interpretation Comments Platelet Estimate (test code = 50221-7) ADEQUATE [facility] DallasPlatelet Morphology Dprbvrk6595-36-54 20:19:00* Test Item Value Reference Range Interpretation Comments Platelet Morphology Comment (test code = 34757-1) FEW LARGE [facility] DallasMacrocytosis2019-04-03 20:19:00* Test Item Value Reference Range Interpretation Comments Macrocytosis (test code = 738-5) SLIGHT [facility] DallasRed Cell Morphology Ziketmy9588-74-07 20:19:00* Test Item Value Reference Range Interpretation Comments Red Cell Morphology Comment (test code = 6742-1) NORMAL [facility] DallasThyroid Stimulating Hormone (TSH) 2018-12-21 20:04:00* Test Item Value Reference Range Interpretation Comments Thyroid Stimulating Hormone (TSH) (test code = 27326-7) 0.782 0.350-4.940 [facility] DallasThyroid Stimulating Hormone (TSH) 2018-12-21 20:04:00* Test Item Value Reference Range Interpretation Comments Thyroid Stimulating Hormone (TSH) (test code = 75546-8) 0.782 0.350-4.940 [facility] DallasThyroid Stimulating Hormone (TSH) 2018-12-21 20:04:00* Test Item Value Reference Range Interpretation Comments Thyroid Stimulating Hormone (TSH) (test code = 18726-2) 0.782 0.350-4.940 [facility] DallasB-Type Natriuretic Orwwbrs4480-50-40 19:48:00* Test Item Value Reference Range Interpretation Comments B-Type Natriuretic Peptide (test code = 41750-0) 303.8 0-100 H [facility] DallasActivated Partial Thromboplast Time 2018-12-21 19:44:00* Test Item Value Reference Range Interpretation Comments Activated Partial Thromboplast Time (test code = 57917-7) 47.6 23.8-35.5 H [facility] DallasCHEST SINGLE (PORTABLE)2018-12-21 17:43:00 [facility] [address] [place] [address] Patient Name: DIANE OREILLY MR #: [id number] : 1935 Age/Sex: 83/M Req #: [id number] Adm Physician: Ordered by: SUNNY WU MD Report #: [id number] Location: ER Room/Bed: Procedure: [id number] DX/CHEST SINGLE (PORTABLE) Exam Date: 12/21/18 Exam Time: 1734 REPORT STATUS: Signed EXAMINATION: CHEST SINGLE (PORTABLE) INDICATION: Pneumonia R/O PNEUMONIA [id number] Y COMPARISON: September 21, 2018 FINDINGS: TUBES and LINES: Left anterior chest cardiac device. LUNGS: The lungs are hypoinflated. Perihilar peribronchial hazy opacity could be due to bronchitis or developing pneumonia in the appropriate clinical setting. PLEURA: No pleural effusion or pneumothorax. HEART AND MEDIAST INUM: The heart is enlarged and there is pulmonary vascular congestion. BONES AND SOFT TISSUES: No acute osseous lesion. Soft tissues are unrema rkable. UPPER ABDOMEN: No free air under the diaphragm. IMPRESSION : Perihilar peribronchial hazy opacity could be due to bronchitis or developi ng pneumonia in the appropriate clinical setting The heart is enlarged an d there is pulmonary vascular congestion Signed by: Skye Dao 12/21/2018 5:57 PM Dictated By: ROSALVA FLORES MD, MD Electronically Bonny d By: ROSALVA FLORES MD, MD on 12/21/181756 Transcribed By: KIERA on 12/21/181756 COPY TO: SUNNY WU MD Bedside Pruwght2559-81-59 12:33:00* Test Item Value Reference Range Interpretation Comments Bedside Glucose (test code = 35737-6) 306 70-120 H Meter ID: [id number] [facility] Creatinine 2018-09-28 10:30:00* Test Item Value Reference Range Interpretation Comments Urine Creatinine (test code = 2161-8) 117.00 63-166 [facility] DallasU[facility] Protein/Creatinine Llvoz6700-47-40 10:30:00* Test Item Value Reference Range Interpretation Comments Urine Protein/Creatinine Ratio (test code = 76687-7) 0.16 [facility] DallasUrine Zcjtjzbhef4352-65-13 10:30:00* Test Item Value Reference Range Interpretation Comments Urine Creatinine (test code = 2161-8) 117.00 63-166 [facility] DallasUrine Protein/Creatinine Vylfv8961-63-98 10:30:00* Test Item Value Reference Range Interpretation Comments Urine Protein/Creatinine Ratio (test code = 80452-9) 0.16 [facility] DallasUrine Iypygpadoa3418-95-02 10:30:00* Test Item Value Reference Range Interpretation Comments Urine Creatinine (test code = 2161-8) 117.00 63-166 [facility] DallasUrine Protein/Creatinine Oackv6627-76-58 10:30:00* Test Item Value Reference Range Interpretation Comments Urine Protein/Creatinine Ratio (test code = 57331-2) 0.16 [facility] DallasDifferential Total Cells Counted 2018-09-28 07:48:00* Test Item Value Reference Range Interpretation Comments Differential Total Cells Counted (test code = Differen tial Total Cells Counted) 100 [facility] DallasNeutrophils % (Manual)2018-09-28 07:48:00 * Test Item Value Reference Range Interpretation Comments Neutrophils % (Manual) (test code = 52952-2) 82 40-74 H [facility] DallasBand Neutrophils %2018-09-28 07:48:00* Test Item Value Reference Range Interpretation Comments Band Neutrophils % (test code = 764-1) 2 [facility] DallasLymphocytes % (Manual)2018-09-28 07:48:00 * Test Item Value Reference Range Interpretation Comments Lymphocytes % (Manual) (test code = 737-7) 6 19-48 L [facility] DallasMonocytes % (Manual)2018-09-28 07:48:00* Test Item Value Reference Range Interpretation Comments Monocytes % (Manual) (test code = 744-3) 7 3.4-9.0 [facility] DallasMetamyelocytes %2018-09-28 07:48:00* Test Item Value Reference Range Interpretation Comments Metamyelocytes % (test code = 740-1) 1 0-0 H [facility] DallasMyelocytes %2018-09-28 07:48:00* Test Item Value Reference Range Interpretation Comments Myelocytes % (test code = 749-2) 2 0-0 H [facility] DallasPlatelet Jsmxqhgs9944-02-53 07:48:00* Test Item Value Reference Range Interpretation Comments Platelet Estimate (test code = 01417-9) ADEQUATE [facility] DallasPlatelet Morphology Ipcwsxv0168-82-12 07:48:00* Test Item Value Reference Range Interpretation Comments Platelet Morphology Comment (test code = 31736-6) FEW GIANT [facility] DallasHypochromasia2019-01-09 07:48:00* Test Item Value Reference Range Interpretation Comments Hypochromasia (test code = 728-6) MODERATE [facility] DallasAnisocytosis2019-01-09 07:48:00* Test Item Value Reference Range Interpretation Comments Anisocytosis (test code = 702-1) MODERATE [facility] DallasRed Cell Morphology Lbnuvqi4767-54-42 07:48:00* Test Item Value Reference Range Interpretation Comments Red Cell Morphology Comment (test code = 6742-1) NORMAL [facility] DallasBand Neutrophils %2018-09-28 07:48:00* Test Item Value Reference Range Interpretation Comments Band Neutrophils % (test code = 764-1) 2 [facility] DallasMetamyelocytes %2018-09-28 07:48:00* Test Item Value Reference Range Interpretation Comments Metamyelocytes % (test code = 740-1) 1 0-0 H [facility] DallasMyelocytes %2018-09-28 07:48:00* Test Item Value Reference Range Interpretation Comments Myelocytes % (test code = 749-2) 2 0-0 H [facility] DallasHypochromasia2019-01-09 07:48:00* Test Item Value Reference Range Interpretation Comments Hypochromasia (test code = 728-6) MODERATE [facility] DallasAnisocytosis2019-01-09 07:48:00* Test Item Value Reference Range Interpretation Comments Anisocytosis (test code = 702-1) MODERATE [facility] DallasBand Neutrophils %2018-09-28 07:48:00* Test Item Value Reference Range Interpretation Comments Band Neutrophils % (test code = 764-1) 2 [facility] DallasMetamyelocytes %2018-09-28 07:48:00* Test Item Value Reference Range Interpretation Comments Metamyelocytes % (test code = 740-1) 1 0-0 H [facility] DallasMyelocytes %2018-09-28 07:48:00* Test Item Value Reference Range Interpretation Comments Myelocytes % (test code = 749-2) 2 0-0 H [facility] DallasHypochromasia2019-01-09 07:48:00* Test Item Value Reference Range Interpretation Comments Hypochromasia (test code = 728-6) MODERATE [facility] DallasAnisocytosis2019-01-09 07:48:00* Test Item Value Reference Range Interpretation Comments Anisocytosis (test code = 702-1) MODERATE [facility] DallasUrine Random Total Gndqhpx5138-50-07 07:10:00* Test Item Value Reference Range Interpretation Comments Urine Random Total Protein (test code = 2888-6) 19.5 1-14 H [facility] DallasUrine Random Total Eifigib3088-69-25 07:10:00* Test Item Value Reference Range Interpretation Comments Urine Random Total Protein (test code = 2888-6) 19.5 1-14 H [facility] DallasUrine Random Total Enfugbn7193-43-91 07:10:00* Test Item Value Reference Range Interpretation Comments Urine Random Total Protein (test code = 2888-6) 19.5 1-14 H [facility] DallasMagnesium Tckrs3479-79-72 06:26:00* Test Item Value Reference Range Interpretation Comments Magnesium Level (test code = 18037-6) 1.4 1.3-2.1 [facility] Kqkri9315-35-54 06:11:00* Test Item Value Reference Range Interpretation Comments Sodium Level (test code = 2951-2) 132 136-145 L [facility] DallasPotassium Wcqdw7405-52-83 06:11:00* Test Item Value Reference Range Interpretation Comments Potassium Level (test code = 2823-3) 4.5 3.5-5.1 [facility] DallasChloride Nrvzs4338-93-86 06:11:00* Test Item Value Reference Range Interpretation Comments Chloride Level (test code = 2075-0) 102 98-107 [facility] DallasCarbon Dioxide Ccogr2603-37-23 06:11:00* Test Item Value Reference Range Interpretation Comments Carbon Dioxide Level (test code = 2028-9) 21 22-29 L [facility] DallasAnion Dqr3216-24-93 06:11:00* Test Item Value Reference Range Interpretation Comments Anion Gap (test code = 63678-7) 13.5 8-16 [facility] DallasBlood Urea Ejufaqed9387-00-54 06:11:00* Test Item Value Reference Range Interpretation Comments Blood Urea Nitrogen (test code = 3094-0) 23 7-26 [facility] DallasCreatinine2019-01-09 06:11:00* Test Item Value Reference Range Interpretation Comments Creatinine (test code = 2160-0) 1.15 0.72-1.25 [facility] DallasBUN/Creatinine Qopyu2556-33-51 06:11:00* Test Item Value Reference Range Interpretation Comments BUN/Creatinine Ratio (test code = 3097-3) 20 6-25 [facility] DallasEstimat Glomerular Filtration Rate 2018-09-28 06:11:00* Test Item Value Reference Range Interpretation Comments Estimat Glomerular Filtration Rate (test code = 215658637) > 60 >60 Ranges were taken from the National Kidney Disease Education Program and the [employer] literature.Reference ranges:60 or greater: Vegmbf27-47 ( for 3 consecutive months): Chronic kidney disease 15 or less: Kidney failureChildren's Medical Center DallasGlucose Wiptn8109-34-52 06:11:00* Test Item Value Reference Range Interpretation Comments Glucose Level (test code = JPD0405) 222 74-118 H [facility] DallasCalcium Jramg3363-40-45 06:11:00* Test Item Value Reference Range Interpretation Comments Calcium Level (test code = 40616-9) 9.0 8.4-10.2 [facility] DallasTotal Anpbaungc9351-74-92 06:11:00* Test Item Value Reference Range Interpretation Comments Total Bilirubin (test code = 1975-2) 0.1 0.2-1.2 L [facility] DallasAspartate Amino Transf (AST/SGOT) 2018-09-28 06:11:00* Test Item Value Reference Range Interpretation Comments Aspartate Amino Transf (AST/SGOT) (test code = Aspartate Amino Transf (AST/SGOT)) 9 5-34 [facility] DallasAlanine Aminotransferase (ALT/SGPT) 2018-09-28 06:11:00* Test Item Value Reference Range Interpretation Comments Alanine Aminotransferase (ALT/SGPT) (test code = 1742-6) 7 0-55 [facility] DallasTotal Riepdzk5497-25-98 06:11:00* Test Item Value Reference Range Interpretation Comments Total Protein (test code = 2885-2) 5.4 6.5-8.1 L [facility] DallasAlbumin2019-01-09 06:11:00* Test Item Value Reference Range Interpretation Comments Albumin (test code = 1751-7) 2.5 3.5-5.0 L [facility] DallasGlobulin2019-01-09 06:11:00* Test Item Value Reference Range Interpretation Comments Globulin (test code = 71322-2) 2.9 2.3-3.5 [facility] DallasAlbumin/Globulin Pnbtj8849-86-62 06:11:00 * Test Item Value Reference Range Interpretation Comments Albumin/Globulin Ratio (test code = 1759-0) 0.9 0.8-2.0 [facility] DallasAlkaline Nbhflrdmclj3289-68-02 06:11:00* Test Item Value Reference Range Interpretation Comments Alkaline Phosphatase (test code = 6768-6) 60 40-150 [facility] DallasWhite Blood Umdvw5737-17-25 06:01:00* Test Item Value Reference Range Interpretation Comments White Blood Count (test code = 6690-2) 14.33 4.8-10.8 [facility] DallasRed Blood Jjngw9743-42-50 06:01:00* Test Item Value Reference Range Interpretation Comments Red Blood Count (test code = 789-8) 3.14 4.3-5.7 L [facility] DallasHemoglobin2019-01-09 06:01:00* Test Item Value Reference Range Interpretation Comments Hemoglobin (test code = 23914-8) 9.0 14.0-18.0 L [facility] DallasHematocrit2019-01-09 06:01:00* Test Item Value Reference Range Interpretation Comments Hematocrit (test code = 4544-3) 27.7 38.2-49.6 L [facility] DallasMean Corpuscular Kyzfmm4370-74-44 06:01:00* Test Item Value Reference Range Interpretation Comments Mean Corpuscular Volume (test code = 787-2) 88.2 81-99 [facility] DallasMean Corpuscular Hgnvpbtdam1187-30-16 06:01:00* Test Item Value Reference Range Interpretation Comments Mean Corpuscular Hemoglobin (test code = 785-6) 28.7 28-32 [facility] DallasMean Corpuscular Hemoglobin Concent 2018-09-28 06:01:00* Test Item Value Reference Range Interpretation Comments Mean Corpuscular Hemoglobin Concent (test code = 786-4) 32.5 31-35 [facility] DallasRed Cell Distribution Ojkjl5452-34-38 06:01:00* Test Item Value Reference Range Interpretation Comments Red Cell Distribution Width (test code = 08653-7) 19.9 11.7 -14.4 H [facility] DallasPlatelet Ugpse4714-97-37 06:01:00* Test Item Value Reference Range Interpretation Comments Platelet Count (test code = 777-3) 375 140-360 H [facility] DallasNeutrophils (%) (Auto)2018-09-28 06:01:00 * Test Item Value Reference Range Interpretation Comments Neutrophils (%) (Auto) (test code = 69455-8) 83.2 38.7-80.0 H [facility] DallasLymphocytes (%) (Auto)2018-09-28 06:01:00 * Test Item Value Reference Range Interpretation Comments Lymphocytes (%) (Auto) (test code = 736-9) 9.4 18.0-39.1 L [facility] DallasMonocytes (%) (Auto)2018-09-28 06:01:00* Test Item Value Reference Range Interpretation Comments Monocytes (%) (Auto) (test code = 5905-5) 2.9 4.4-11.3 L [facility] DallasEosinophils (%) (Auto)2018-09-28 06:01:00 * Test Item Value Reference Range Interpretation Comments Eosinophils (%) (Auto) (test code = 713-8) 0.0 0.0-6.0 [facility] DallasBasophils (%) (Auto)2018-09-28 06:01:00* Test Item Value Reference Range Interpretation Comments Basophils (%) (Auto) (test code = 706-2) 0.2 0.0-1.0 [facility] DallasIM GRANULOCYTES %2018-09-28 06:01:00* Test Item Value Reference Range Interpretation Comments IM GRANULOCYTES % (test code = IM GRANULOCYTES %) 4.3 0.0- 1.0 H [facility] DallasNeutrophils # (Auto)2018-09-28 06:01:00* Test Item Value Reference Range Interpretation Comments Neutrophils # (Auto) (test code = 751-8) 11.9 2.1-6.9 H [facility] DallasLymphocytes # (Auto)2018-09-28 06:01:00* Test Item Value Reference Range Interpretation Comments Lymphocytes # (Auto) (test code = 68532-7) 1.4 1.0-3.2 [facility] DallasMonocytes # (Auto)2018-09-28 06:01:00* Test Item Value Reference Range Interpretation Comments Monocytes # (Auto) (test code = 742-7) 0.4 0.2-0.8 [facility] DallasEosinophils # (Auto)2018-09-28 06:01:00* Test Item Value Reference Range Interpretation Comments Eosinophils # (Auto) (test code = 711-2) 0.0 0.0-0.4 [facility] DallasBasophils # (Auto)2018-09-28 06:01:00* Test Item Value Reference Range Interpretation Comments Basophils # (Auto) (test code = 704-7) 0.0 0.0-0.1 [facility] DallasAbsolute Immature Granulocyte (auto 2018-09-28 06:01:00* Test Item Value Reference Range Interpretation Comments Absolute Immature Granulocyte (auto (gilberto t code = Absolute Immature Granulocyte (auto) 0.62 0-0.1 H [facility] DallasProthrombin Bsah6531-07-96 05:56:00* Test Item Value Reference Range Interpretation Comments Prothrombin Time (test code = 5902-2) 16.1 11.9-14.5 H [facility] DallasProthromb Time International Ratio 2018-09-28 05:56:00* Test Item Value Reference Range Interpretation Comments Prothromb Time International Ratio (test code = 6301-6) 1.19 Oral Anticoagulant Therapy INR Values:1. Low Intensity Therapy 1.5 - 2.02 . Moderate Intensity Therapy 2.0 - 3.03. High Intensity Therapy(1) 2.5 - 3. 54. High Intensity Therapy(2) 3.0 - 4.05. Panic Value INR > 5.0 [facility]2019-01-08 06:16:00* Test Item Value Reference Range Interpretation Comments Iron Level (test code = 2498-4) 35 65-175 L [facility]2019-01-08 06:16:00* Test Item Value Reference Range Interpretation Comments Iron Level (test code = 2498-4) 35 65-175 L [facility]2019-01-08 06:16:00* Test Item Value Reference Range Interpretation Comments Iron Level (test code = 2498-4) 35 65-175 L [facility] DallasEosinophils % (Manual)2018-09-25 10:15:00 * Test Item Value Reference Range Interpretation Comments Eosinophils % (Manual) (test code = 714-6) 5 0-7 [facility] DallasEosinophils % (Manual)2018-09-25 10:15:00 * Test Item Value Reference Range Interpretation Comments Eosinophils % (Manual) (test code = 714-6) 5 0-7 [facility] DallasEosinophils % (Manual)2018-09-25 10:15:00 * Test Item Value Reference Range Interpretation Comments Eosinophils % (Manual) (test code = 714-6) 5 0-7 [facility] DallasUS RENAL RETROPERITONEAL ELQT0526-78-29 16:28:00 [place] [address] Patient Name: DIANE OREILLY MR #: [id number] : 1935 Age/Sex: 83/M Req #: [id number] Adm Physician: VIDYA BROWNLEE MD Ordered by: SANDY DALY MD, MD Report #: [id number] [facility]: [facility] Room/Bed: 293-1 Procedure: [id number] U S/US RENAL RETROPERITONEAL COMP Exam Date: 09/22/18 Exam Time: 1555 REPORT STATUS: Sign ed EXAM: Renal Ultrasound INDICATION: renal failure COMPARIS ON: CT dated 07/23/2018 TECHNIQUE: Transverse and longitudinal images of the k idneys and bladder were obtained. FINDINGS: Right Kidney: Size: 11 cm Echogenicity: Normal Parenchymal thickness: No rmal Collecting system: No hydronephrosis Stones: None Cys t/Mass: None Left Kidney: Size: 12.4 cm Echogenicity: Normal Parenchymal thickness: Normal Collecting system: No hydroneph rosis Stones: None Cyst/Mass: None Bladder: Decompressed b y a Prajapati catheter in place. IMPRESSION: Unremarkable renal ultrasound ex am. Signed by: Dr. Dinesh Laboy MD on 09/22/2018 4:30 PM Dictated By : DINESH LABOY MD 1630 Transcribed By: KIERA on 09/22/18 1630 COPY TO: SANDY DALY Creatine Kinase [id number] 06:49:00* Test Item Value Reference Range Interpretation Comments Creatine Kinase MB (test code = 74744-3) 3.00 0-5.0 [facility] DallasTroponin [id number] 06:49:00* Test Item Value Reference Range Interpretation Comments Troponin I (test code = IIQ8943) 0.097 0-0.300 [facility] DallasCreatine Gmmvhb0499-86-40 06:47:00* Test Item Value Reference Range Interpretation Comments Creatine Kinase (test code = 2157-6) 365 30-200 H [facility] DallasLipase2019-01-02 12:35:00* Test Item Value Reference Range Interpretation Comments Lipase (test code = 3040-3) [facility] DallasLipase2019-01-02 12:35:00* Test Item Value Reference Range Interpretation Comments Lipase (test code = 3040-3) [facility] DallasLipase2019-01-02 12:35:00* Test Item Value Reference Range Interpretation Comments Lipase (test code = 3040-3) [facility] DallasCHEST SINGLE (PORTABLE)2018-09-21 12:34:00 [facility] [address] [place] [address] Patient Name: DIANE OREILLY MR #: [id number] : 1935 Age/Sex: 83/M Req #: [id number] Adm Physician: Ordered by: NATALIIA ADMON NP Report #: [id number] Location: ER Room/Bed: Procedure: [id number] DX/CHEST SINGLE (PORTABLE) Exam Date: 09/21/18 Exam Time: 1020 REPORT STATUS: Signed EXAMINATION: CHEST SINGLE (PORTABLE) COMPARISON: Chest radiograph . FINDINGS: TUBES and LINES: Left-sided pacemaker with lead in unchanged position. LUNGS: Low lung volumes. There is linear subsegment al atelectasis at the lung bases. Central vascular congestion without evidence of pulmonary edema. No evidence of lobar consolidation. PLEURA: No pleu ral effusion or pneumothorax. Unchanged moderate elevation of the right hemidi aphragm. HEART AND MEDIASTINUM: The cardiomediastinal silhouette is uncha nged. Transcutaneous aortic valve replacement. Atherosclerotic calcifications of the aortic arch. BONES AND SOFT TISSUES: No acute osseous abnormality . Old right posterior fourth rib fracture. UPPER ABDOMEN: No free air und er the diaphragm. IMPRESSION: Central vascular congestion without ev idence of pulmonary edema. Low lung volumes with bibasilar atelectasis. Signed by: Dr. Fadia Lewis MD on 09/21/2018 12:39 PM Dictated By: FADIA LEWIS MD 1239 Transcribed By: KIERA on 09/21/18 1239 COPY TO: NATALIIA DAMON NP B-Type Natriuretic Rvknoij3184-99-12 12:33:00* Test Item Value Reference Range Interpretation Comments B-Type Natriuretic Peptide (test code = 00387-9) 95.1 0-100 [facility] DallasActivated Partial Thromboplast Time 2018-09-21 12:09:00* Test Item Value Reference Range Interpretation Comments Activated Partial Thromboplast Time (test code = 91171-7) 61.9 23.8-35.5 H [facility] DallasUrine KFP4958-12-58 12:09:00* Test Item Value Reference Range Interpretation Comments Urine WBC (test code = 5821-4) NONE 0-5 [facility] DallasUrine LTP4331-44-96 12:09:00* Test Item Value Reference Range Interpretation Comments Urine RBC (test code = 58279-4) NONE 0-5 [facility] DallasUrine Mlgdjhre4341-53-45 12:09:00* Test Item Value Reference Range Interpretation Comments Urine Bacteria (test code = 92994-1) NONE NONE [facility] DallasUrine Epithelial Keagq9310-53-74 12:09:00 * Test Item Value Reference Range Interpretation Comments Urine Epithelial Cells (test code = 26261-6) RARE NONE [facility] DallasUrine Exzml3193-42-05 12:06:00* Test Item Value Reference Range Interpretation Comments Urine Color (test code = 5778-6) ORANGE YELLOW H [facility] DallasUrine Irzlsxx2155-01-56 12:06:00* Test Item Value Reference Range Interpretation Comments Urine Clarity (test code = 22728-7) SL CLOUDY CLEAR H [facility] DallasUrine Specific Uuuesgy8751-42-95 12:06:00 * Test Item Value Reference Range Interpretation Comments Urine Specific [place] (test code = 5811-5) 1.025 1.010-1.02 5 [facility] DallasUrine qR7079-36-69 12:06:00* Test Item Value Reference Range Interpretation Comments Urine pH (test code = 68107-7) 5 5-7 [facility] DallasU[facility] Leukocyte Yrfybflz0233-78-48 12:06:00* Test Item Value Reference Range Interpretation Comments Urine Leukocyte Esterase (test code = 5799-2) NEGATIVE NEGATIVE [facility] Lzzgxsq4528-19-36 12:06:00* Test Item Value Reference Range Interpretation Comments Urine Nitrite (test code = 05516-8) NEGATIVE NEGATIVE [facility] Pezoozw8595-67-94 12:06:00* Test Item Value Reference Range Interpretation Comments Urine Protein (test code = 5804-0) NEGATIVE NEGATIVE [facility] DallasUrine Glucose (UA)2018-09-21 12:06:00* Test Item Value Reference Range Interpretation Comments Urine Glucose (UA) (test code = 2349-9) 1+ NEGATIVE H [facility] DallasUrine Pdnxyhl3455-03-25 12:06:00* Test Item Value Reference Range Interpretation Comments Urine Ketones (test code = 36305-3) NEGATIVE NEGATIVE [facility] Qfamhxufqxtr1695-24-03 12:06:00* Test Item Value Reference Range Interpretation Comments Urine Urobilinogen (test code = 56785-0) 0.2 0.2-1 [facility] DallasUrine Wcnhvnvzl7355-31-15 12:06:00* Test Item Value Reference Range Interpretation Comments Urine Bilirubin (test code = 1978-6) NEGATIVE NEGATIVE [facility] DallasUrine Zpnvh8004-98-61 12:06:00* Test Item Value Reference Range Interpretation Comments Urine Blood (test code = 32951-0) NEGATIVE NEGATIVE [facility] DallasMicrocytosis2018-11-14 08:13:00* Test Item Value Reference Range Interpretation Comments Microcytosis (test code = 741-9) SLIGHT [facility] DallasOvalocytes2018-11-14 08:13:00* Test Item Value Reference Range Interpretation Comments Ovalocytes (test code = 774-0) FEW [facility] DallasMicrocytosis2018-11-14 08:13:00* Test Item Value Reference Range Interpretation Comments Microcytosis (test code = 741-9) SLIGHT [facility] DallasOvalocytes2018-11-14 08:13:00* Test Item Value Reference Range Interpretation Comments Ovalocytes (test code = 774-0) [facility] 08:13[facility]* Test Item Value Reference Range Interpretation Comments Microcytosis (test code = 741-9) SLIGHT [facility] DallasOvalocytes2018-11-14 08:13:00* Test Item Value Reference Range Interpretation Comments Ovalocytes (test code = 774-0) [facility] VENT YKUHGBSNS5768-76-48 15:53:00 [place] [address] Patient Name: DIANE OREILLY MR #: [id number] : 1935 Age/Sex: 82/M Req #: [id number] [facility] Physician: VIDYA BROWNLEE MD Ordered by: LEÓN SMITH MD Report #: [id number] Location: MED/SURG3 Room/Bed: [facility] Procedure: 1110-000 1 NM/VQ LUNG SCAN VENT PERFUSION Exam Date: Exam Time: REPORT STATUS: Signed Ve ntilation/perfusion lung scan Clinical Information: 82 M with SOB, history of DVT. On anticoagulation program, currently IV drip. Comparison: Chest radiograph 07/30/2018 Discussion: Xenon-133 gas 13.5 mCi was administered via inhalation. Dynamic images of the lungs in the posterior projection were obtained through single breath, equilibrium, and washout phases. Distribution of tracer activity is minimally irregular throughout the lungs. There are no segmental ventilatory defects. Washout of tracer is diffusely delayed with b ibasilar air trapping. The right hemidiaphragm is elevated. Perfusion im ages of the lungs were obtained in multiple projections following intravenous administration of approximately 5 mCi of Tc-99m MAA. Distribution of tracer is minimally irregular throughout the lungs. The contours of the lungs are well demarcated. There are no segmental perfusion defects of any size. The right hemidiaphragm is elevated. The cardiomediastinal silhouette is mildly enla rged. Impression: Scan findings represent a VERY LOW probability for acute pulmonary embolic disease based on the PIOPED II criteria. Scan evidenc e of obstructive lung disease. Signed by: Dr. Beatris Colbert M.D. on 2017 3:54 PM Dictated By: BEATRIS COLBERT MD 53 Transcribed By: KIERA on 08/01/18 4733 COPY TO: LEÓN SMITH MD Arterial Blood [id number] 13:02:00* Test Item Value Reference Range Interpretation Comments Arterial Blood pH (test code = 2744-1) 7.44 7.31-7.41 H [facility] DallasArterial Blood Partial Pressure CO2 2018-07-30 13:02:00* Test Item Value Reference Range Interpretation Comments Arterial Blood Partial Pressure CO2 (test code = 2019-04) 28 41-51 L [facility] DallasArterial Blood Partial Pressure O2 2018-07-30 13:02:00* Test Item Value Reference Range Interpretation Comments Arterial Blood Partial Pressure O2 (test code = 2019-04) 136 80-105 H [facility] DallasArterial Blood [id number] 13:02:00* Test Item Value Reference Range Interpretation Comments Arterial Blood HCO3 (test code = 1960-4) 20 23-28 L [facility] DallasArterial Blood Base Hrlzsy5024-13-00 13:02:00* Test Item Value Reference Range Interpretation Comments Arterial Blood Base Excess (test code = 1925-7) -5.0 -2-3 L [facility] DallasArterial Blood Oxygen Saturation 2018-07-30 13:02:00* Test Item Value Reference Range Interpretation Comments Arterial Blood Oxygen Saturation (test code = 2708-6) 99.0 95-98 H [facility] DallasFiO22018-11-10 13:02:00* Test Item Value Reference Range Interpretation Comments FiO2 (test code = FiO2) 99 Patient on 3lpm o2Children[facility] DallasArterial Blood pH 2018-07-30 13:02:00* Test Item Value Reference Range Interpretation Comments Arterial Blood pH (test code = 2744-1) 7.44 7.31-7.41 H [facility] DallasArterial Blood Partial Pressure CO2 2018-07-30 13:02:00* Test Item Value Reference Range Interpretation Comments Arterial Blood Partial Pressure CO2 (test code = 2018-8) 28 41-51 L [facility] DallasArterial Blood Partial Pressure O2 2018-07-30 13:02:00* Test Item Value Reference Range Interpretation Comments Arterial Blood Partial Pressure O2 (test code = 2019-8) 136 80-105 H [facility] DallasArterial Blood QUU31261-40-01 13:02:00* Test Item Value Reference Range Interpretation Comments Arterial Blood HCO3 (test code = 1960-4) 20 23-28 L [facility] DallasArterial Blood Base Qcbhyi3259-30-84 13:02:00* Test Item Value Reference Range Interpretation Comments Arterial Blood Base Excess (test code = 1925-7) -5.0 -2-3 L [facility] DallasArterial Blood Oxygen Saturation 2018-07-30 13:02:00* Test Item Value Reference Range Interpretation Comments Arterial Blood Oxygen Saturation (test code = 2708-6) 99.0 95-98 H [facility] DallasFiO22018-11-10 13:02:00* Test Item Value Reference Range Interpretation Comments FiO2 (test code = FiO2) 99 Patient on 3lpm o2Children[facility] DallasArterial Blood pH 2018-07-30 13:02:00* Test Item Value Reference Range Interpretation Comments Arterial Blood pH (test code = 2744-1) 7.44 7.31-7.41 H [facility] DallasArterial Blood Partial Pressure CO2 2018-07-30 13:02:00* Test Item Value Reference Range Interpretation Comments Arterial Blood Partial Pressure CO2 (test code = 2018-) 28 41-51 L [facility] DallasArterial Blood Partial Pressure O2 2018-07-30 13:02:00* Test Item Value Reference Range Interpretation Comments Arterial Blood Partial Pressure O2 (test code = 2019-04) 136 80-105 H [facility] DallasArterial Blood CSE55284-24-64 13:02:00* Test Item Value Reference Range Interpretation Comments Arterial Blood HCO3 (test code = 1960-4) 20 23-28 L [facility] DallasArterial Blood Base Sdgasu7172-32-47 13:02:00* Test Item Value Reference Range Interpretation Comments Arterial Blood Base Excess (test code = 1925-7) -5.0 -2-3 L [facility] DallasArterial Blood Oxygen Saturation 2018-07-30 13:02:00* Test Item Value Reference Range Interpretation Comments Arterial Blood Oxygen Saturation (test code = 2708-6) 99.0 95-98 H [facility] DallasFiO22018-11-10 13:02:00* Test Item Value Reference Range Interpretation Comments FiO2 (test code = FiO2) 99 Patient on 3lpm o2[facility] DallasCHEST SINGLE (PORTABLE) 2018-07-30 10:24:00 [place] [address] Patient Name: DIANE OREILLY MR #: [id number] : 1935 Age/Sex: 82/M Req #: [id number] Adm Physician: VIDYA BROWNLEE MD Ordered by: ROBERTO FINCH MD Report #: [id number] Location: MED/SURG3 Room/Bed: 2991 Procedure: [id number] D X/CHEST SINGLE (PORTABLE) Exam Date: Exam Time: REPORT STATUS: Signed EXAM: XR [facility]RICIA ST 1 VIEW DATE: 07/30/2018 9:23 AM INDICATION: Shortness of breath COMPARISON: None FINDINGS: Lines and Tubes: Left chest wall pacemak er single lead overlying right ventricle. Heart and Mediastinum: Heart mi ldly enlarged. Aortic vascular calcifications. Lungs and Pleura: Moderate e levation right hemidiaphragm with right basilar atelectasis. Hilar fullness. Bones and Soft Tissues: No acute findings. IMPRESSION: 1. Cardiomeg alisa and hilar fullness suggest mild vascular congestion. Signed by: Dr. Jennifer Hung MD on 07/30/2018 10:24 AM Dictated By: ARDEN HUNG MD Elec tronically Signed By: ARDEN HUNG MD on 07/30/18 1024 Transcribed By: LILLIAM Gutierres on 07/30/18 1024 COPY TO: ROBERTO FINCH MD Reactive Vgnctzrxeat8274-60-85 07:29:00* Test Item Value Reference Range Interpretation Comments Reactive Lymphocytes (test code = 63976-4) 2 [facility] [place] Hyhcrhs5498-68-88 19:30:00* Test Item Value Reference Range Interpretation Comments Blood Culture (test code = 34746829) NO GROWTH AFTER 5 DAYS, FINAL REPORT [facility] Grgfsjk7411-98-50 08:07:00* Test Item Value Reference Range Interpretation Comments Wound Culture (test code = 6462-6) Organism: STAPHYLOCOCCUS AUREUS- MRSA [facility] Lfazkga3531-36-01 08:07:00* Test Item Value Reference Range Interpretation Comments Wound Culture (test code = 6462-6) Organism: STAPHYLOCOCCUS AUREUS- MRSA [facility] Wprascr0543-28-50 08:07:00* Test Item Value Reference Range Interpretation Comments Wound Culture (test code = 6462-6) Organism: STAPHYLOCOCCUS AUREUS- MRSA [facility] CHEST [id number] 13:15:00 [facility] [address] [address] Patient Name: DIANE OREILLY MR #: [id number] : 1935 Age/Sex: 82/M Req #: [id number] Adm Physician: VIDYA BROWNLEE MD Ordered by: NATI WELCH MD Report #: [id number] Location: ICU Room/Bed: ICU [facility] Procedure: [id number] CT/CT CHEST WO Exam Date: 07/24/18 Exam Time: 1300 REPORT STATUS: Signed EXAM: CT Ch est WITHOUT contrast INDICATION: Shortness of breath. sob [id number] COMPARISON: CT abdomen and pelvis 07/23/2018 TECHNIQUE: Chest was scanned utilizing a multidetector helical scanner from the lung apex through the level of the adrenal glands without administration of IV contrast. Absence of intravenous contrast decreases sensitivity for detection of lymphadenopathy and vascular pathology. Coronal and sagittal reformations were obtained. Rou lenora protocol was performed. IV CONTRAST: None COMPLICATIONS: None RADIATION DOSE: Total DLP: 553.3 mGy*cm Estimated effective dose: (DLP x 0.014 x size factor) mSv CTDIvol has been reviewed. It is below the limits set by the Radiation Protocol Committee (RPC). Dose modulatio n, iterative reconstruction, and/or weight based adjustment of the mA/kV was u tilized to reduce the radiation dose to as low as reasonably achievable. FINDINGS: LINES/ TUBES: Left chest wall cardiac device with leads in the right atrium and right ventricle. LUNGS AND AIRWAYS: Right upper lower lobe subsegmental atelectasis. No consolidations. Airways are normal. PLEURA: The pleural spaces are clear. HEART AND MEDIASTINUM: The thyroid gland is normal. No mediastinal, hilar or axillary lymphadenopathy. The h eart is normal in size.. There is no pericardial effusion. Coronary artery and aortic calcifications. Aortic root stent. Main pulmonary artery measures 2.9 cm, within normal limits. UPPER ABDOMEN: Please refer to abdominal CT from yesterday for abdominal findings. BONES: There are degenerative changes in the thoracic spine. SOFT TISSUES: Unremarkable. IMPRESSION: No ac cabazon abnormalities in the chest. Signed by: DR. Azar Gayle MD on 07/24/20 1:24 PM Dictated By: AZAR GAYLE MD 1324 Transcribed By: KIERA on 07/24/18 1324 FACING END TRIMMER Y TO: NATI WELCH MD Total Iron Binding Ziyqrhyo0019-56-30 05:34:00 * Test Item Value Reference Range Interpretation Comments Total Iron Binding Capacity (test code = 2500-7) 260 261-4 78 L [facility] Iron Dvcahzsesr4313-34-15 05:34:00* Test Item Value Reference Range Interpretation Comments Percent Iron Saturation (test code = 2502-3) 10 15-50 L [facility] DallasTransferrin2018-11-04 05:34:00* Test Item Value Reference Range Interpretation Comments Transferrin (test code = 3034-6) 186 174-364 [facility] Dallas[facility] Iron Binding Jyfekdbx7000-17-63 05:34:00* Test Item Value Reference Range Interpretation Comments Total Iron Binding Capacity (test code = 2500-7) 260 261-4 78 L [facility] Iron Oxdbmotaop1606-61-52 05:34:00* Test Item Value Reference Range Interpretation Comments Percent Iron Saturation (test code = 2502-3) 10 15-50 L [facility] DallasTransferrin2018-11-04 05:34:00* Test Item Value Reference Range Interpretation Comments Transferrin (test code = 3034-6) 186 174-364 [facility] Iron Binding Eldtbtki9760-38-06 05:34:00* Test Item Value Reference Range Interpretation Comments Total Iron Binding Capacity (test code = 2500-7) 260 261-4 78 L [facility] Iron Tzwrdhmymx5865-83-00 05:34:00* Test Item Value Reference Range Interpretation Comments Percent Iron Saturation (test code = 2502-3) 10 15-50 L [facility] DallasTransferrin2018-11-04 05:34:00* Test Item Value Reference Range Interpretation Comments Transferrin (test code = 3034-6) 186 174-364 [facility] DallasVQ LUNG SCAN VENT MYZXUMJQX2582-46-77 00:58:00 [facility] [address] [place] [address] Patient Name: DIANE OREILLY MR #: [id number] : 1935 Age/Sex: 82/M Req #: [id number] Adm Physician: VIDYA BROWNLEE MD Ordered by: NILE ALMANZAR MD Report #: [id number] Location: ICU Room/Bed: ICU [facility] Procedure: [id number] NM/VQ LUNG SCAN VENT PERFUSION Exam Date: Exam T martha: REPORT STATUS: Signed EXAM : VENTILATION PERFUSION LUNG SCAN INDICATION: Shortness of breath COMPARISO N: AP view of the chest July 23, 2018 DISCUSSION: Xenon-133 gas 16 mCi was administered via inhalation. Dynamic images of the lungs in the posterior projection were obtained through single breath and washout phases. Distributio n of tracer activity appears irregular throughout the lungs. Perfusion i mages of the lungs in multiple projections were obtained following intravenous administration of 6.5 mCi of Tc-99m MAA. Distribution of tracer appears mildly irregular throughout the lungs. There are no segmental perfusion defects of any size. The contours of the lungs are well demarcated. Elevation of the r ight hemidiaphragm. IMPRESSION: Scan findings represent a LOW probabilit y for acute pulmonary embolic disease based on the PIOPED II criteria. Si gned by: Dr. Chance Lujan M.D. on 07/24/2018 1:02 AM Dictated By: JAIMEE LUJAN MD 1 Tra nscribed By: KIERA on 07/24/18101 COPY TO: NILE ALMANZAR MD CT ABDOMEN/PELVIS [id number] 21:14:00 [address] [address] Patient Name: DIANE OREILLY MR #: [id number] : 1935 Age/Sex: 82/M Req #: [id number] Adm Physician: Ordered by: NILE ALMANZAR MD Report #: [id number] Location: ER Room/Bed: Procedure: [id number] CT/CT ABDOMEN/PELVIS WO Exam Date: Exam Time: REPORT STATUS: Signed EXAM: CT ABDOM EN AND PELVIS without IV CONTRAST INDICATION: Colon resection July 07 8, shortness of breath, concern for abscess COMPARISON: CT of the abdomen a nd pelvis with IV contrast July 31, 2018 TECHNIQUE: The abdomen and pelvis were scanned using a multidetector helical scanner. Coronal and sagittal refo rmations were obtained. Dose modulation, iterative reconstruction, and/or weig ht based adjustment of the mA/kV was utilized to reduce the radiation dose to as low as reasonably achievable. Routine protocol performed. IV Contrast: No ne Oral Contrast: None CTDIvol has been reviewed. It is below the limits set by the Radiation Protocol Committee (RPC). FINDINGS: LOWER THORAX: Ate lectasis or scarring right lung base. Coronary artery calcifications and aorti c root stent LIVER: No masses BILIARY: Normal gallbladder. No ductal dila tion. SPLEEN: No masses PANCREAS: No masses ADRENALS: No nodules RIGHT KIDNEY: No nephroureterolithiasis or hydronephrosis. Perinephric fat stranding. LEFT KIDNEY: No nephroureterolithiasis or hydronephrosis. Perine phric fat stranding. GI TRACT: Mildly distended stomach and proximal smal l bowel with fluid. No bowel obstruction. Marked diverticulosis of the descend ing and sigmoid colon. Surgical changes of right hemicolectomy . Minimal infla mmation around diverticula in the left lower quadrant at the distal descending colon. VESSELS: Moderate atherosclerotic changes of the abdominal aor ta and its branches with stable focal dilation of the infrarenal abdominal aor ta to 3.5 cm. PERITONEUM/RETROPERITONEUM: No free air or fluid LYMPH NODES : No lymphadenopathy REPRODUCTIVE ORGANS: Normal BLADDER: Normal SOF T TISSUES: Bilateral fat-containing inguinal hernias. Surgical changes from in cisions in the right abdomen. The more upper incision contains some inflammati on and foci of air in the subcutaneous tissues and mild thickening of the unde rlying muscle. Overlying surgical stepan. BONES: No suspicious bone lesions. IMPRESSION: 1. Surgical changes of right hemicolectomy. The incision in the right upper abdomen has underlying foci of air and stranding in the subc utaneous tissues. This could represent superimposed infection, however there i s no abscess formation. 2. Minimal inflammation surrounding diverticula i n the distal descending colon. If the patient does have acute left lower quadr ant pain, this could represent early acute diverticulitis. Signed by: Dr. Chance Lujan M.D. on 07/23/2018 9:23 PM Dictated By: CHANCE LUJAN MD 22 Transcribed By: KIERA on 07/23/182122 COPY TO: NILE ALMANZAR MD Lactic Acid Fzmbp3552-60-13 20:02:00* Test Item Value Reference Range Interpretation Comments Lactic Acid Level (test code = Lactic Acid Level) 27.6 4.5- 19.8 HH Results called to Odilia/RN at 2000 on 07/23/18 by Robin Dumont. RB [place].[facility] DallasLactic Acid Qkzsx4062-31-71 20:02:00* Test Item Value Reference Range Interpretation Comments Lactic Acid Level (test code = Lactic Acid Level) 27.6 4.5- 19.8 HH Results called to Odilia/RN at 2000 on 07/23/18 by Robin Dumont. RB [place].[facility] DallasLactic Acid Wycdv4538-72-13 20:02:00* Test Item Value Reference Range Interpretation Comments Lactic Acid Level (test code = Lactic Acid Level) 27.6 4.5- 19.8 HH Results called to Odilia/RN at 2000 on 07/23/18 by Robin Dumont. RB OK.[facility] DallasD-Dimer Quantitative (PE/DVT)2018-07-23 19:39:00* Test Item Value Reference Range Interpretation Comments D-Dimer Quantitative (PE/DVT) (test code = 10379-9) 2.58 0. 00-0.45 H [facility] DallasD-Dimer Quantitative (PE/DVT)2018-07-23 19:39:00* Test Item Value Reference Range Interpretation Comments D-Dimer Quantitative (PE/DVT) (test code = 98671-7) 2.58 0. 00-0.45 H [facility] DallasD-Dimer Quantitative (PE/DVT)2018-07-23 19:39:00* Test Item Value Reference Range Interpretation Comments D-Dimer Quantitative (PE/DVT) (test code = 88440-3) 2.58 0. 00-0.45 H [facility] DallasCHEST SINGLE (PORTABLE)2018-07-23 19:24:00 [address] [address] Patient Name: DIANE OREILLY MR #: [id number] : 1935 Age/Sex: 82/M Req #: [id number] Adm Physician: Ordered by: ANTHONY PULLIAM MD Report #: [id number] Location: ER Room/Bed: Procedure: [id number] DX /CHEST SINGLE (PORTABLE) Exam Date: 07/23/18 Exam Ti me: 1900 REPORT STATUS: Signed E XAM: CHEST SINGLE (PORTABLE), AP 1 view INDICATION: Shortness of breath for 3 days COMPARISON: PA and lateral view the chest July 01, 2018 FINDINGS: LINES/TUBES: Stable position left approach dual lead pacemaker LUNGS: No consolidations or edema. Mild right lower lobe atelectasis. PLEURA: No eff usions or pneumothorax. Stable elevation of the right hemidiaphragm HEART AND MEDIASTINUM: Stable appearance with aortic stent. BONES AND SOFT TISSU ES: No acute findings. IMPRESSION: No acute thoracic abnormality. Signed by: Dr. Chance Lujan M.D. on 07/23/2018 7:26 PM Dictated By: CHANCE LUJAN MD Transcribed By: KIERA on 07/23/181925 COPY TO: ANTHONY PULLIAM MD CHEST 2 OPKWC3825-95-46 14:17:00 [address] [address] Patient Name: DIANE OREILLY MR #: [id number] : 1935 Age/Sex: 82/M Req #: [id number] Adm Physician: Ordered by: VINH VELA MD Report #: [id number] Location: OR Room/Bed: Procedure: [id number] DX/CHEST 2 VIEWS Exam Da te: Exam Time: REPORT STATUS: Signed EXAMI NATION: CHEST 2 VIEWS INDICATION: COMPARISON: CT abd omen and pelvis 05/31/2018 FINDINGS: PA and lateral views TUBES a nd LINES: 2-lead pacemaker device overlying the left mid chest with leads ove rlying the right atrium and right ventricle. LUNGS: Lungs are well inflate d. Pleural-based linear scarring in the right upper lobe. Bandlike opacity in the right lower lobe with associated volume loss worse since prior CT. Minim al atelectasis in the left lower lobe. PLEURA: No pleural effusion or pneu mothorax. HEART AND MEDIASTINUM: The cardiomediastinal silhouette is unrem arkable. 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 Moderate calcificat ions of the aortic arch. BONES AND SOFT TISSUES: No acute osseous lesion . Soft tissues are unremarkable. UPPER ABDOMEN: No free air under the di aphragm. IMPRESSION: Worsening bandlike opacity at the right lower lobe associated with volume loss may reflect worsening partial collapse of the rig ht lower lobe versus superimposed pneumonia in the proper clinical setting. Re commend follow-up. Signed by: Dr. Cece Pink M.D. on 07/01 2:19 PM Dictated By: CECE PINK MD Electronically Sig nati By: CECE PINK MD on 07/01/181418 Transcribed By: KIERA on 07/01/181418 COPY TO: VINH VELA MD CT ABDOMEN/PELVIS W 2018-05-31 12:23:00 [address] [place] [address] Patient Name: DIANE OREILLY MR #: [id number] : 1935 Age/Sex: 82/M Req #: [id number] Adm Physician: Ordered by: NORBERTO FUCHS MD Report #: [id number] Location: CT Room/Bed: Procedure: [id number] CT/CT ABDOMEN/PELVIS W Exam Date: 05/31/18 Exam Time: 1100 REPORT STATUS: Signed EXAMINATION: CT of the abdomen and pelvis with contrast. TECHNIQU E: Spiral CT images of the abdomen and pelvis were performed from the lung ba ses to the lesser trochanters after the intravenous administration of 100 cc o f Isovue 370 and the oral administration of dilute Gastrografin. Coronal and sagittal reformatted images were obtained. COMPARISON: None. CLINIC AL HISTORY:History of colon cancer, sessile polypoid lesion in the hepatic fle xure on colonoscopy 05/27/2018 DISCUSSION: ABDOMEN/PELVIS: LOW ER THORAX:Subsegmental atelectasis versus scarring in the right middle lobe. 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 Atherosclerotic calcification of the coronary arteries and thora cic aorta. Distal portion of cardiac wires noted in the right ventricle. HE PATOBILIARY: No focal hepatic lesions. No intra or extrahepatic biliary ducta l dilation. GALLBLADDER: No radio-opaque stones or sludge. No wall thicken ing. SPLEEN: No splenomegaly. PANCREAS: No focal masses or ductal dila tation. ADRENALS: No adrenal nodules. KIDNEYS/URETERS: No hydronephro sis, stones, or solid mass lesions. PELVIC ORGANS/BLADDER: Bladder is unrem arkable. Prostate is unremarkable. PERITONEUM/RETROPERITONEUM: No free air or fluid. LYMPH NODES: No intra-abdominal, retroperitoneal, pelvic or ingui nal lymphadenopathy. VESSELS: The celiac trunk,superior and inferior mese nteric and bilateral renal arteries are patent The portal, superior mesenter ic and splenic veins are patent. Atherosclerotic calcification of the abdomina l aorta and proximal vessels with presence of moderate soft plaque in the prox imal abdominal aorta (series 2, image 28 and 36). Focal ectasia of the infrare nal abdominal aorta, which measures approximately 3.5 cm in AP diameter (serie s 2, image 48 and sagittal image 85). GI TRACT: No bowel dilation or evid ence of obstruction. Descending and sigmoid colon diverticulosis, without dive rticulitis. No definite intraluminal masses noted at the hepatic flexure. BONES AND SOFT TISSUE: No aggressive lytic lesions. Bilateral fat-containing inguinal hernias, left greater than right. IMPRESSION: 1. No intralumin al bowel masses are identified. 2. Descending colon and sigmoid diverticulo sis, without diverticulitis. 3. Focal ectasia of the infrarenal abdomina l aorta measuring approximately 3.5 cm in AP diameter. Signed by: Dr. Del Calvert M.D. on 05/31/2018 12:42 PM Dictated By: MARIO CALVERT MD 124 Transcribed By: KIERA on 05/31/18 1242 COPY TO: NORBERTO FUCHS MD Prostate Specific Yjgjjom7452-63-46 06:42:00* Test Item Value Reference Range Interpretation Comments Prostate Specific Antigen (test code = 2857-1) 4.2 0.0-4.0 H Rashida ECLIA methodology.According to the [employer] [employer], Serum PSAshould decrease and remain at undetectable levels afterradical prostatectomy. The AUA defines biochemicalrecurrence as an initial PSA value 0.2 ng/mL or grea terfollowed by a subsequent confirmatory PSA value 0.2 ng/mLor greater. Values o btained with different assay methods orkits cannot be used interchangeably. Resu lts cannot beinterpreted as absolute evidence of the presence or absenceof malig nant disease.Performed at: - [facility] [id number] Director: Sher Erwin MD, Phone: [phone]'s Medical Center DallasProstate Specific Vvjrvsv4328-15-88 06:42:00* Test Item Value Reference Range Interpretation Comments Prostate Specific Antigen (test code = 2857-1) 4.2 0.0-4.0 H Rashida ECLIA methodology.According to the [place] [employer], Serum PSAshould decrease and remain at undetectable levels afterradical prostatectomy. The AUA defines biochemicalrecurrence as an initial PSA value 0.2 ng/mL or grea terfollowed by a subsequent confirmatory PSA value 0.2 ng/mLor greater. Values o btained with different assay methods orkits cannot be used interchangeably. Resu lts cannot beinterpreted as absolute evidence of the presence or absenceof malig nant disease.Performed at: - [facility] [id number] Director: Sher Erwin MD, Phone: [phone]'s Medical Center DallasTriglycerides Cupqj9123-52-76 14:40:00* Test Item Value Reference Range Interpretation Comments Triglycerides Level (test code = 2571-8) 384 0-149 H [facility] DallasCholesterol Wexsk5204-67-23 14:40:00* Test Item Value Reference Range Interpretation Comments Cholesterol Level (test code = 2093-3) 149 0-199 Less than 200 mg/dL Low Masx388 - 239 mg/dL Borderline Gcwd982 m g/dl and greater High Risk [facility] DallasLDL Vsifqxdklkl1939-57-64 14:40:00* Test Item Value Reference Range Interpretation Comments LDL Cholesterol (test code = 2089-1) 42 60-130 L [facility] DallasHDL Gweajgqdese4798-89-27 14:40:00* Test Item Value Reference Range Interpretation Comments HDL Cholesterol (test code = 2085-9) 30 40-60 L [facility] DallasCholesterol/HDL Syqnj2223-48-16 14:40:00 * Test Item Value Reference Range Interpretation Comments Cholesterol/HDL Ratio (test code = 9830-1) 5.0 3.9-4.7 H [facility] DallasTriglycerides Khmoz1734-65-86 14:40:00* Test Item Value Reference Range Interpretation Comments Triglycerides Level (test code = 2571-8) 384 0-149 H [facility] DallasCholesterol Hyzkv5737-07-36 14:40:00* Test Item Value Reference Range Interpretation Comments Cholesterol Level (test code = 2093-3) 149 0-199 Less than 200 mg/dL Low Pdiu818 - 239 mg/dL Borderline Oode004 m g/dl and greater High Risk [facility] DallasLDL Pidhheuxnyp9697-97-45 14:40:00* Test Item Value Reference Range Interpretation Comments LDL Cholesterol (test code = 2089-1) 42 60-130 L [facility] DallasHDL Bqcvtutzhhn0152-42-65 14:40:00* Test Item Value Reference Range Interpretation Comments HDL Cholesterol (test code = 2085-9) 30 40-60 L [facility] DallasCholesterol/HDL Sxaip6065-14-49 14:40:00 * Test Item Value Reference Range Interpretation Comments Cholesterol/HDL Ratio (test code = 9830-1) 5.0 3.9-4.7 H [facility]
[2020-05-04] MEDS ORDERED: METHYLPREDNISOLONE SOD SUCC 125 MG/2ML VIAL IV NR (11:00)
[2020-05-04 11:08] LABS: BASOPHILS # (AUTO) 0.1 (0.0-0.1); BASOPHILS % 0.7 % (0.0-1.0); EOSINOPHILS # (AUTO) 0.2 (0.0-0.4); EOSINOPHILS % 2.1 % (0.0-6.0); HEMATOCRIT 33.7 % (38.2-49.6); HEMOGLOBIN 10.2 g/dL (14.0-18.0); LYMPHOCYTES # (AUTO) 1.5 (1.0-3.2); LYMPHOCYTES % 13.4 % (18.0-39.1); MEAN CORPUSCULAR HEMOGLOBIN 24.5 pg (28-32); MEAN CORPUSCULAR HGB CONC 30.3 g/dL (31-35); MONOCYTES % 9.3 % (4.4-11.3); NEUTROPHILS # (AUTO) 8.2 (2.1-6.9); NEUTROPHILS % 73.1 % (38.7-80.0); PLATELET COUNT 274 x10e3/uL (140-360); RED BLOOD COUNT 4.16 x10e6/uL (4.3-5.7)
[2020-05-04 11:19] LABS: INR 0.95; PARTIAL THROMBOPLASTIN TIME 23.2 seconds (23.8-35.5); PROTHROMBIN TIME 13.2 seconds (11.9-14.5)
[2020-05-04] MEDS ORDERED: AZITHROMYCIN 500MG/NS 250 ML 250 ML IV ONE (11:30)
[2020-05-04] MEDS: ALBUTEROL SULFATE HFA 8GM INHALATION AEROSOL INH PRN (11:31)
[2020-05-04 11:32] LABS: ALBUMIN 3.1 g/dL (3.5-5.0); ALBUMIN/GLOBULIN RATIO 0.8 (0.8-2.0); ANION GAP 19.3 mmol/L (8-16); CALCIUM 8.7 mg/dL (8.4-10.2); CREATININE, SERUM 1.56 mg/dL (0.72-1.25); MAGNESIUM 1.4 MG/DL (1.3-2.1); POTASSIUM 4.3 mmol/L (3.5-5.1)
[2020-05-04 11:38] LABS: CREATINE KINASE MB 2.1 ng/mL (0-5.0)
--- NOTE | 2020-05-04 13:10 | Diagnostic Imaging Report ---
EXAMINATION: CHEST SINGLE (PORTABLE) INDICATION: History of CHF represents with cough and shortness of breath. COMPARISON: Prior Chest x-rays including most recent on 09/22/2019 FINDINGS: TUBES and LINES: Stable cardiac pacemaker. LUNGS: There is chronic elevation of the right hemidiaphragm. There are prominent interstitial lung markings throughout both lungs. There is also right infrahilar prominence and bibasilar atelectasis, right more to left. PLEURA: No pleural effusion or pneumothorax. HEART AND MEDIASTINUM: The heart is mildly enlarged. The mediastinal silhouette is within normal limits with atherosclerotic calcification of the thoracic aortic arch. BONES AND SOFT TISSUES: No acute osseous lesion. Soft tissues are unremarkable. UPPER ABDOMEN: No free air under the diaphragm. IMPRESSION: Mild cardiomegaly with prominent interstitial lung markings which most likely represents interstitial pulmonary edema. Airway inflammation such as bronchitis and developing multifocal infection can have a similar appearance in the proper clinical context. Signed by: Libby Marie MD on 05/04/2020 1:07 PM
[2020-05-04] MEDS ORDERED: FUROSEMIDE INJ 10 MG/ML 4 ML VIAL IV NR (13:45)
--- NOTE | 2020-05-04 15:38 | Emergency Department Note ---
History of Present Illnes History of Present Illness Chief Complaint: COVID PUI History of Present Illness This is a 84 year old male presents to the ER this morning with complaint of shortness of breath. Patient states he has been having progressive shortness of breath over the last few years but it has gotten much worse over the last month to the poin that he is fatiqued and having trouble with activities of daily living. Historian: Patient Arrival Mode: Car Traffic Signal Mechanic Required: No Onset (how long ago): week(s) Radiation: Reports non-radiation Severity: moderate Onset quality: gradual Timing of current episode: intermittent Progression: worsening Chronicity: chronic Context: Denies recent illness Relieving factors: none Exacerbating factors: none Associated symptoms: Reports denies other symptoms Treatments prior to arrival: none Past Medical/Family History Physician Review I have reviewed the patient's past medical and family history. Any updates have been documented here. Past Medical History Recent Fever: No Clinical Suspicion of Infectio: No New/Unexplained Change in Ment: No Past Medical History: Hypertension, Diabetes, COPD, CHF, GERD Other Medical History: pacemaker renal insufficiency Past Surgical History: Knee Replacement Other Surgery: Carpal tunnel Hemicolectomy, Aortic stent, valve replacement 2017 right knee surgery. Social History Smoking Cessation: Former smoker Counseling Performed: Yes Alcohol Use: None Any Illegal Drug Use: No TB Exposure/Symptoms: No Physically hurt or threatened: No Family History Family history of heart diseas: Yes Other Last Tetanus: UNKNOWN Any Pre-Existing Lines (PICC,: No Review of Systems Review of Systems Constitutional: Reports no symptoms EENTM: Reports no symptoms Cardiovascular: Reports chest pain (OCCASIONAL PRESSURE, INTERMITTENT), Reports edema Respiratory: Reports as per HPI, Reports dyspnea, Reports dyspnea on exertion Gastrointestinal: Reports no symptoms Genitourinary: Reports no symptoms Musculoskeletal: Reports no symptoms Integumentary: Reports no symptoms Neurological: Reports no symptoms Psychological: Reports no symptoms Endocrine: Reports no symptoms Hematological/Lymphatic: Reports no symptoms Physical Exam Related Data Allergies: Coded Allergies: Penicillins (Verified Allergy, Unknown, 05/16/18) Triage Vital Signs Vital Signs Date Time Temp Pulse Resp B/P (MAP) Pulse Ox O2 Delivery O2 Flow Rate FiO2 05/04/20 10:28 98.3 70 20 142/45 99 Room Air Vital signs reviewed: Yes Physical Exam CONSTITUTIONAL Constitutional: Present well-developed, Present well-nourished HENT HENT: Present normocephalic, Present atraumatic, Present oropharynx clear/moist, Present nose normal HENT L/R: Present left ext ear normal, Present right ext ear normal EYES Eyes: Reports PERRL, Reports conjunctivae normal NECK Neck: Present ROM normal PULMONARY Pulmonary: Present effort normal, Present rales (BIBASILAR) CARDIOVASCULAR Cardiovascular: Present regular rhythm, Present normal rate, Present LLE edema (3+), Present RLE edema (3+) GASTROINTESTINAL Abdominal: Present soft, Present nontender, Present bowel sounds normal GENITOURINARY Genitourinary: Present exam deferred SKIN Skin: Present warm, Present dry MUSCULOSKELETAL Musculoskeletal: Present ROM normal NEUROLOGICAL Neurological: Present alert, Present oriented x 3, Present no gross motor or sensory deficits PSYCHOLOGICAL Psychological: Present mood/affect normal, Present judgement normal Results Laboratory Result Diagram: 05/04/20 1040 05/04/20 1040 Laboratory Laboratory Tests Test 05/04/20 10:40 White Blood Count 11.20 x10e3/uL (4.8-10.8) Red Blood Count 4.16 x10e6/uL (4.3-5.7) Hemoglobin 10.2 g/dL (14.0-18.0) Hematocrit 33.7 % (38.2-49.6) Mean Corpuscular Volume 81.0 fL (81-99) Mean Corpuscular Hemoglobin 24.5 pg (28-32) Mean Corpuscular Hemoglobin Concent 30.3 g/dL (31-35) Red Cell Distribution Width 18.0 % (11.7-14.4) Platelet Count 274 x10e3/uL (140-360) Neutrophils (%) (Auto) 73.1 % (38.7-80.0) Lymphocytes (%) (Auto) 13.4 % (18.0-39.1) Monocytes (%) (Auto) 9.3 % (4.4-11.3) Eosinophils (%) (Auto) 2.1 % (0.0-6.0) Basophils (%) (Auto) 0.7 % (0.0-1.0) Neutrophils # (Auto) 8.2 (2.1-6.9) Lymphocytes # (Auto) 1.5 (1.0-3.2) Monocytes # (Auto) 1.0 (0.2-0.8) Eosinophils # (Auto) 0.2 (0.0-0.4) Basophils # (Auto) 0.1 (0.0-0.1) Absolute Immature Granulocyte (auto 0.16 x10e3/uL (0-0.1) Prothrombin Time 13.2 seconds (11.9-14.5) Prothromb Time International Ratio 0.95 Activated Partial Thromboplast Time 23.2 seconds (23.8-35.5) Sodium Level 134 mmol/L (136-145) Potassium Level 4.3 mmol/L (3.5-5.1) Chloride Level 97 mmol/L (98-107) Carbon Dioxide Level 22 mmol/L (22-29) Anion Gap 19.3 mmol/L (8-16) Blood Urea Nitrogen 22 mg/dL (7-26) Creatinine 1.56 mg/dL (0.72-1.25) Estimat Glomerular Filtration Rate 43 ML/MIN (60-) BUN/Creatinine Ratio 14 (6-25) Glucose Level 301 mg/dL (74-118) Calcium Level 8.7 mg/dL (8.4-10.2) Magnesium Level 1.4 MG/DL (1.3-2.1) Total Bilirubin 0.4 mg/dL (0.2-1.2) Aspartate Amino Transf (AST/SGOT) 20 IU/L (5-34) Alanine Aminotransferase (ALT/SGPT) 10 IU/L (0-55) Alkaline Phosphatase 94 IU/L (40-150) Creatine Kinase 109 IU/L (30-200) Creatine Kinase MB 2.10 ng/mL (0-5.0) Troponin I 0.042 ng/mL (0-0.300) B-Type Natriuretic Peptide 121.9 pg/mL (0-100) Total Protein 6.8 g/dL (6.5-8.1) Albumin 3.1 g/dL (3.5-5.0) Globulin 3.7 g/dL (2.3-3.5) Albumin/Globulin Ratio 0.8 (0.8-2.0) Lab results reviewed: Yes Imaging Imaging results reviewed: Yes Impressions EXAMINATION: CHEST SINGLE (PORTABLE) INDICATION: History of CHF represents with cough and shortness of breath. COMPARISON: Prior Chest x-rays including most recent on 09/22/2019 FINDINGS: TUBES and LINES: Stable cardiac pacemaker. LUNGS: There is chronic elevation of the right hemidiaphragm. There are prominent interstitial lung markings throughout both lungs. There is also right infrahilar prominence and bibasilar atelectasis, right more to left. PLEURA: No pleural effusion or pneumothorax. HEART AND MEDIASTINUM: The heart is mildly enlarged. The mediastinal silhouette is within normal limits with atherosclerotic calcification of the thoracic aortic arch. BONES AND SOFT TISSUES: No acute osseous lesion. Soft tissues are unremarkable. UPPER ABDOMEN: No free air under the diaphragm. IMPRESSION: Mild cardiomegaly with prominent interstitial lung markings which most likely represents interstitial pulmonary edema. Airway inflammation such as bronchitis and developing multifocal infection can have a similar appearance in the proper clinical context. Signed by: Libby Marie MD on 05/04/2020 1:07 PM Assessment & Plan Medical Decision Making MDM H/O COPD & CHF WITH SOB - CHECK CBC, CHEM, ECG, CARDIACS, BNP, CXR, COVID SWAB, GIVE SOLUMEDROL/NEBS/LASIX - R/O CHF, COPD, PNEUMONIA, COVID, STEMI/NSTEMI, RENAL FAILURE Reassessment Reassessment ADMIT TO DR BROWNLEE, CONSULTS TO [facility] Assessment & Plan Final Impression: (1) CHF (congestive heart failure) (2) COPD (chronic obstructive pulmonary disease) (3) Renal insufficiency Depart Disposition: ADMITTED Last Vital Signs Date Time Temp Pulse Resp B/P (MAP) Pulse Ox O2 Delivery O2 Flow Rate FiO2 05/04/20 10:28 98.3 70 20 142/45 99 Room Air Home Meds Reported Medications Hydrocodone Bit/Acetaminophen (HYDROCODON-ACETAMINOPH 7.5-325) 1 Each Tablet, PO Q4HR for pain 09/26/19 Potassium Chloride (POTASSIUM CHLORIDE) 10 Meq Tab.er.prt, 10 MEQ PO DAILY, TAB 09/22/19 Fluticasone/Salmeterol (ADVAIR 250-50 DISKUS) 1 Each Disk.w.dev, 1 INH PO BID 05/20/19 Warfarin Sodium (WARFARIN SODIUM) 3 Mg Tablet, 10 MG PO DAILY, #30 TAB 05/20/19 Spironolactone (SPIRONOLACTONE) 25 Mg Tablet, 25 MG PO BID, #60 TAB 05/20/19 Mirabegron (MYRBETRIQ) 50 Mg Tab.er.24h, 50 MG PO DAILY 05/20/19 Insulin Glargine (LANTUS 3ML PEN) 100 Units/1 Ml Inj, 50 UNITS SQ DAILY 05/20/19 Ipratropium/Albuterol Sulfate (COMBIVENT RESPIMAT INHAL SPRAY) 4 Gm Aer.w.adap, 4 GM IH Q6H PRN for SHORTNESS OF BREATH, INH 05/20/19 Furosemide (FUROSEMIDE) 40 Mg Tablet, 40 MG PO HS, #30 TAB 05/20/19 Furosemide (FUROSEMIDE) 40 Mg Tablet, 80 MG PO DAILY, #30 TAB 05/20/19 Docusate Sodium (DOCUSATE SODIUM) 100 Mg Capsule, 100 MG PO QID, CAP 05/20/19 Atorvastatin Calcium (ATORVASTATIN CALCIUM) 10 Mg Tablet, 10 MG PO 2100, #30 TAB 09/21/18 Allopurinol (ALLOPURINOL) 300 Mg Tablet, 300 MG PO DAILY, #30 TAB 09/21/18 Clopidogrel Bisulfate (CLOPIDOGREL) 75 Mg Tablet, 75 MG PO DAILY, #30 TAB 09/21/18 Metoprolol Succinate (METOPROLOL SUCCINATE) 50 Mg Tab.er.24h, 50 MG PO BID, MG 05/16/18 Pantoprazole Sodium* (PROTONIX) 40 Mg Tablet.dr, 40 MG PO HS, TAB 05/16/18 Glimepiride (GLIMEPIRIDE) 4 Mg Tablet, 4 MG PO BID 05/16/18 Medications in the ED Methylprednisolone Sodium Succinate 125 mg ONCE IV Last administered on 05/04/20at 11:30; Admin Dose 125 MG; Start 05/04/20 at 11:00; Stop 05/04/20 at 11:59; Status DC Ceftriaxone Sodium 50 ml @ 100 mls/hr ONCE ONCE IV Last administered on 05/04/20at 11:30; Admin Dose 100 MLS/HR; Start 05/04/20 at 10:45; Stop 05/04/20 at 11:14; Status DC Azithromycin 250 ml @ 200 mls/hr NOW ONCE IV Last administered on 05/04/20at 11:32; Admin Dose 200 MLS/HR; Start 05/04/20 at 11:30; Stop 05/04/20 at 12:44; Status DC Albuterol 2 PUFFS RQ2H PRN INH SHORTNESS OF BREATH Last administered on 05/04/20at 11:31; Admin Dose 2 AER; Start 05/04/20 at 10:45; Stop 06/03/20 at 10:44 Furosemide 40 mg ONCE IV ; Start 05/04/20 at 13:45; Stop 05/04/20 at 14:59; Status DC ANTHONY PULLIAM MD May 04, 2020 15:37
[2020-05-04] MEDS ORDERED: DEXTROSE 50% SYRINGE 50 ML IV PRN (15:45)
--- OUTSIDE RECORDS SUMMARY | 2020-05-04 16:02 | XMS REPORT | Continuity of Care Document ---
Author Author [facility] t Organization [facility] Address 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 Name Role Phone VIDYA BROWNLEE MD PCP Martin PULLIAM Attphys Unavailable JORGE LUIS SHIELDS Attphys Unavailable Osmel ALMANZAR Attphys Unavailable PATI BENJAMIN Attphys Unavailable VIDYA BROWNLEE Attphys Unavailable Ailyn VELA Attphys Unavailable NORBERTO FUCHS Attphys Unavailable JORGE LUIS SHIELDS Admphys Unavailable VIDYA BROWNLEE Admphys Unavailable Payers Payer Name Policy Type Policy Number Effective Date Expiration Date [facility] [id number] 2018 00:00:00 [facility] Medicare A & B [id number] 2001 00:00:00 [facility] Problems Condition Name Condition Details Condition Category Status Onset Date Resolution Date Last Treatment Date Treating Clinician Comments Source Dehydration Dehydration Problem Active [facility] Diverticulitis Diverticulitis Problem Active [facility] Hyperglycemia Hyperglycemia Problem Active [facility] Hyponatremia Hyponatremia Problem Active [facility] Encounter for examination following surgery Postoperative follow -up Problem Active [facility] Acute renal failure superimposed on chronic kidney dis ease Renal failure (ARF), acute on chronic Problem Active [facility] Retention of urine Urinary retention Problem Active [facility] Allergies, Adverse Reactions, Alerts Allergy Name Allergy Type Status Severity Reaction(s) Onset Date Inacti ve Date Treating Clinician Comments Source Penicillins DA Active U 2018-08-09 00:00:00 [facility] Penicillin Allergy to Substance Active 2018-05-16 00:00:00 [facility] No Known Contrast Allergies DA Active U 2007-04-04 00:00: 00 [facility] No Known Food Allergies DA Active U 2007-04-04 00:00:00 [facility] No Known Other Allergies DA Active U 2007-04-04 00:00:00 [facility] PENICILLIN DA Active 2007-04-04 00:00:00 [facility] Medications Ordered Medication Name Filled Medication Name Start Date Stop Da te Current Medication? Ordering Clinician Indication Dosage Frequency Signature (SIG) Comments Components Source Allopurinol 300 Mg Tablet Allopurinol 300 Mg Tablet Yes 300 Daily [facility] Atorvastatin Calcium 10 Mg Tablet Atorvastatin Calcium 10 Mg Tablet Yes 10 Today At 9:00PM [facility] Clopidogrel Bisulfate (Clopidogrel) 75 Mg Tablet Clopi dogrel Bisulfate (Clopidogrel) 75 Mg Tablet Yes 75 Daily [facility] Docusate Sodium 100 Mg Capsule Docusate Sodium 100 Mg Capsule Yes 100 Four Times Daily [facility] Fluticasone/Salmeterol (Advair 250-50 Diskus) 1 Each D isk.w.dev Fluticasone/Salmeterol (Advair 250-50 Diskus) 1 Each Disk.w.dev Yes 1 Twice A Day [facility] Furosemide 40 Mg Tablet Furosemide 40 Mg Tablet Yes 80 Daily [facility] Furosemide 40 Mg Tablet Furosemide 40 Mg Tablet Yes 40 Bedtime [facility] Glimepiride 4 Mg Tablet Glimepiride 4 Mg Tablet Yes 4 Twice A Day [facility] Hydrocodone Bit/Acetaminophen (Hydrocodon-Acetaminoph 7.5-325) 1 Each Tablet Hydrocodone Bit/Acetaminophen (Hydrocodon-Acetaminoph 7.5-325) 1 Each Tablet Yes Every 4 Hours for Pain [facility] Insulin Glargine (Lantus 3ML Pen) 100 Units/1 Ml Inj I nsulin Glargine (Lantus 3ML Pen) 100 Units/1 Ml Inj Yes 50 Daily [facility] Ipratropium/Albuterol Sulfate (Combivent Respimat Inha l [place]) 4 Gm Aer.w.adap Ipratropium/Albuterol Sulfate (Combivent Respimat Inhal [place]) 4 Gm Aer.w.adap Yes 4 Every 6 Hours as needed for Yasmeen rtness Of Breath [facility] Metoprolol Succinate 50 Mg Tab.er.24h Metoprolol Succinate 50 Mg Ta b.er.24h Yes 50 Twice A Day [facility] Mirabegron (Myrbetriq) 50 Mg Tab.er.24h Mirabegron (Myrbetri q) 50 Mg Tab.er.24h Yes 50 Daily [facility] Pantoprazole Sodium (Protonix) 40 Mg Tablet. Pantopr azole Sodium (Protonix) 40 Mg Tablet. Yes 40 Bedtime [facility] Potassium Chloride 10 Meq Tab.er.prt Potassium Chloride 10 Meq Tab. er.prt Yes 10 Daily [facility] Spironolactone 25 Mg Tablet Spironolactone 25 Mg Tablet Yes 25 Twice A Day [facility] Warfarin Sodium 3 Mg Tablet Warfarin Sodium 3 Mg Tablet Yes 10 Daily [facility] Tramadol Hcl (Ultram 50MG*) 50 Mg Tab, 50 Mg Oral Tram adol Hcl (Ultram 50MG*) 50 Mg Tab, 50 Mg Oral 2019-09-25 00:00:00 No 50 Every 6 Hours [facility] Docusate Sodium 100 Mg Capsule, 100 Mg Oral Docusate S odium 100 Mg Capsule, 100 Mg Oral 2019-05-20 00:00:00 No 100 Daily [facility] Ferrous Sulfate 325 Mg Tablet., Oral Ferrous Sulfa te 325 Mg Tablet., Oral 2019-05-20 00:00:00 No Three Times A Day [facility] Furosemide 40 Mg Tablet, 80 Mg Oral Furosemide 40 Mg Tablet, 80 Mg Oral 2019-05-20 00:00:00 No 80 Twice A Day [facility] Insulin Glargine (Lantus 3ML Pen) 100 Units/1 Ml Inj, 30 Subcutaneously Insulin Glargine (Lantus 3ML Pen) 100 Units/1 Ml Inj, 30 Subcutaneously 2019-05-20 00:00:00 No 30 Daily [facility] Metolazone 5 Mg Tablet, 5 Mg Oral Metolazone 5 Mg Tablet, 5 Mg O ral 2019-05-20 00:00:00 No 5 Daily [facility] Montelukast Sodium 10 Mg Tablet, 10 Mg Oral Montelukas t Sodium 10 Mg Tablet, 10 Mg Oral 2019-05-20 00:00:00 No 10 Bedtime [facility] Prednisone 20 Mg Tab, 10 Mg Oral Prednisone 20 Mg Tab, 10 Mg Ora l 2019-05-20 00:00:00 No 10 Daily [facility] Spironolactone 25 Mg Tablet, 50 Mg Oral Spironolactone 25 Mg Tablet, 50 Mg Oral 2019-05-20 00:00:00 No 50 Twice A Day [facility] Warfarin Sodium 1 Mg Tablet, 7.5 Mg Oral Warfarin Sodi um 1 Mg Tablet, 7.5 Mg Oral 2019-05-20 00:00:00 No 7.5 Daily [facility] Warfarin Sodium 3 Mg Tablet, 10 Mg Oral Warfarin Sodium 3 Mg Tablet, 10 Mg Oral 2019-05-20 00:00:00 No 10 Qsaturday [facility] Acetaminophen/Codeine Phosphate (Tylenol # 3*) 1 Ea Ta b, 1 Tab Oral Acetaminophen/Codeine Phosphate (Tylenol # 3*) 1 Ea Tab, 1 Tab Oral 2018-09-21 00:00:00 No 1 Every 4 Hours as needed for Mary n [facility] Aspirin 81 Mg Tab.chew, 81 Mg Oral Aspirin 81 Mg Tab.chew, 81 Mg Oral 2018-09-21 00:00:00 No 81 Daily [facility] Calcium Polycarbophil (Fiber Laxative) 625 Mg Tablet, 625 Mg Oral Calcium Polycarbophil (Fiber Laxative) 625 Mg Tablet, 625 Mg Oral 20 08-10-01 00:00:00 No 625 Daily [facility] Ezetimibe/Simvastatin (Vytorin 10-40 Mg Tablet) 1 Each Tablet, 1 Tab Oral Ezetimibe/Simvastatin (Vytorin 10-40 Mg Tablet) 1 Each Tablet, 1 Tab Oral 2018-09-21 00:00:00 No 1 Daily [facility] Fluticasone Cream , 0.05 % Topically Fluticasone Cream , 0.05 % Topically 2018-09-21 00:00:00 No .05 As Needed as needed for Itching [facility] Fluticasone/Salmeterol (Advair 250-50 Di skus) 1 Each Disk.w.dev, 1 Inh Inhalation Fluticasone/Salmeterol (Advair 250-50 Di skus) 1 Each Disk.w.dev, 1 Inh Inhalation 2018-09-21 00:00:00 No 1 As Needed [facility] Metformin Hcl 1,000 Mg Tablet, 1000 Mg Oral Metformin Hcl 1,000 Mg Tablet, 1000 Mg Oral 2018-09-21 00:00:00 No 1000 Twice A Day [facility] Sitagliptin Phosphate (Januvia) 100 Mg Tablet, 100 Mg Oral Sitagliptin Phosphate (Januvia) 100 Mg Tablet, 100 Mg Oral 2018-09-21 00:00:00 No 100 Daily [facility] Solifenacin Succinate (Vesicare) 5 Mg Tablet, 5 Mg Ora l Solifenacin Succinate (Vesicare) 5 Mg Tablet, 5 Mg Oral 2018-09-21 00:00:00 No 5 Daily [facility] Valsartan/Hydrochlorothiazide (Diovan Hc t 160-25 Mg Tablet) 1 Each Tablet, 1 Tab Oral Valsartan/Hydrochlorothiazide (Diovan Hc t 160-25 Mg Tablet) 1 Each Tablet, 1 Tab Oral 2018-09-21 00:00:00 No 1 Daily [facility] Amlodipine Besylate 5 Mg Tablet, 5 Mg Oral Amlodipine Besylate 5 Mg Tablet, 5 Mg Oral 2018-07-07 00:00:00 No 5 Daily [facility] Clopidogrel Bisulfate (Plavix) 75 Mg Tablet, 75 Mg Ora l Clopidogrel Bisulfate (Plavix) 75 Mg Tablet, 75 Mg Oral 2018-07-07 00:00:00 No 75 Daily [facility] Fluticasone/Salmeterol (Advair 250-50 Di skus) 1 Each Disk.w.dev, 1 Inh Inhalation Fluticasone/Salmeterol (Advair 250-50 Di skus) 1 Each Disk.w.dev, 1 Inh Inhalation 2018-07-07 00:00:00 No 1 Daily [facility] Sitagliptin Phosphate (Januvia) 100 Mg Tablet, 100 Mg Oral Sitagliptin Phosphate (Januvia) 100 Mg Tablet, 100 Mg Oral 2018-05-26 00:00:00 No 100 Daily [facility] Procedures Procedure Date / Time Performed Performing Clinician [facility] Total replacement of left knee joint 2019-09-25 00:00:00 JORGE LUIS SHIELDS [facility] X-ray of chest, two views 2019-09-22 00:00:00 JORGE LUIS SHIELDS [facility] Computed tomography of chest with contrast 2019-05-21 00:00:00 NILE ANDREWS [facility] X-ray of chest, two views 2019-01-30 00:00:[address] [facility] Encounters Start Date/Time End Date/Time Encounter Type Admission Type Att[facility] Facility Care Department Encounter ID Source 2019-09-25 12:47:00 2019-09-26 16:30:00 Discharged Inpatient (obs) 3 JORGE LUIS SHIELDS [facility] [id number] [facility] 2019-05-20 20:30:00 2019-05-21 03:58:00 Departed Emergency Room 1 NILE ALMANZAR [facility] [id number] [facility] 2019-01-30 15:35:00 2019-01-30 15:35:00 Registered Clinic 3 PATI BENJAMIN [facility] [id number] [facility] 2018-12-22 02:05:00 2018-12-28 14:20:00 Discharged Inpatient 1 VIDYA BROWNLEE [facility] [id number] [facility] 2018-09-21 13:59:00 2018-09-28 16:53:00 Discharged Inpatient 1 VIDYA BROWNLEE [facility] [id number] [facility] 2018-07-23 22:05:00 2018-08-03 21:14:00 Discharged Inpatient 1 VIDYA BROWNLEE [facility] [id number] [facility] 2018-07-07 13:14:00 2018-07-13 11:07:00 Discharged Inpatient 3 VINH VELA [facility] [id number] [facility] 2018-05-31 08:45:00 2018-05-31 08:45:00 Registered Clinic 3 NORBERTO FUCHS [facility] [id number] [facility] 2018-05-27 09:50:00 2018-05-27 09:50:00 Registered Surgical Day Care [facility] [id number] [facility] 2018-05-17 11:10:00 2018-05-17 11:10:00 Registered Surgical Day Care [facility] [id number] [facility] Results Test Description Test Time Test Comments Results Result Comments Source CHEST SINGLE (PORTABLE) 2020-05-04 12:36:00 [facility] [address] [place] [address] Patient Name: DIANE OREILLY MR #: [id number] : 1935 Age/Sex: 84/M Req #: [id number] Adm Physician: Ordered by: ANTHONY PULLIAM MD Report #: [id number] Location: ER Room/Bed: Procedure: [id number] DX/CHEST SINGLE (PORTABLE) Exam Date: 05/04/20 Exam Time: 1049 REPORT STATUS: Signed EXAMINATION: CHEST SINGLE (PORTABLE) INDICATION: History of CHF represents with cough and shortness of breath. COMPARISON: Prior Chest x-rays including most recent on 09/22/2019 FINDINGS: TUBES and LINES: Stable cardiac pacemaker. LUNGS: There is chronic elevation of the right hemidiaphragm. There are prominent interstitial lung markings throughout both lungs. There is also right infrahilar prominence and bibasilar atelectasis, right more to left. PLEURA: No pleural effusion or pneumothorax. HEART AND MEDIASTINUM: The heart is mildly enlarged. The mediastinal silhouette is within normal limits with atherosclerotic calcification of the thoracic aortic arch. BONES AND SOFT TISSUES: No acute osseous lesion. Soft tissues are unremarkable. UPPER ABDOMEN: No free air under the diaphragm. IMPRESSION: Mild cardiomegaly with prominent interstitial lung markings which most likely represents interstitial pulmonary edema. Airway inflammation such as bronchitis and developing multifocal infection can have a similar appearance in the proper clinical context. Signed by: Libby Dixon MD on 05/04/2020 1:07 PM Dictated By: LIBBY DIXON MD 06 Transcribed By: KIERA on 05/04/201306 COPY TO: ANTHONY PULLIAM MD Bedside Glucose 2019-09-26 16:10:00 Test Item Bedside Glucose (test code = 18097-6) 214 70-120 H Meter ID: [id number] [facility] 06:24:00* Test Item Value Reference Range Interpretation Comments Hemoglobin (test code = 58725-4) 7.8 14.0-18.0 L [facility]emat[facility]rit2020-01-07 06:24:00* Test Item Value Reference Range Interpretation Comments Hematocrit (test code = 4544-3) 26.4 38.2-49.6 L [facility]wayKNEE LEFT 1-2 [id number] 14:44:00 [facility] [address] [address] Patient Name: DIANE OREILLY MR #: [id number] : 1935 Age/Sex: 84/M Req #: [id number] Adm Physician: JORGE LUIS SHIELDS MD Ordered by: JORGE LUIS SHIELDS MD Report #: [id number] Location: PACU Room/Bed: [facility]- Procedure: [id number] D X/KNEE LEFT 1-2 VIEWS Exam Date: [...] MD 1445 Transcribed By: KIERA on 09/25/19 144 COPY TO: JORGE LUIS SHIELDS MD CHEST 2 VIEWS 2019-09-22 17:37:00 [address] [place] [address] Patient Name: DIANE OREILLY MR #: [id number] : 1935 Age/Sex: 84/M Req #: [id number] Adm Physician: Ordered by: JORGE LUIS SHIELDS MD Report #: [id number] Location: OR Room/Bed: Procedure: [id number] DX /CHEST 2 VIEWS Exam Date: 09/22/19 [...] 37 COPY TO: LATIA SHIELDS MD Sodium [id number] 17:21:00* Test Item Value Reference Range Interpretation Comments Sodium Level (test code = 2951-2) 134 136-145 L [facility]assium Rnmhp0231-33-44 17:21:00* Test Item Value Reference Range Interpretation Comments Potassium Level (test code = 2823-3) 4.1 3.5-5.1 [facility]Chloride [id number] 17:21:00* Test Item Value Reference Range Interpretation Comments Chloride Level (test code = 2075-0) 98 98-107 [facility]wayCarbon Dioxide [id number] 17:21:00* Test Item Value Reference Range Interpretation Comments Carbon Dioxide Level (test code = 2028-9) 23 22-29 [facility]wayAnion [id number] 17:21:00* Test Item Value Reference Range Interpretation Comments Anion Gap (test code = 07015-7) 17.1 8-16 H [facility]wayBlood Urea [id number] 17:21:00* Test Item Value Reference Range Interpretation Comments Blood Urea Nitrogen (test code = 3094-0) 25 7-26 [facility]wayCreatinine2020-01-03 17:21:00* Test Item Value Reference Range Interpretation Comments Creatinine (test code = 2160-0) 1.75 0.72-1.25 H [facility]wayBUN/Creatinine [id number] 17:21:00* Test Item Value Reference Range Interpretation Comments BUN/Creatinine Ratio (test code = 3097-3) 14 6-25 [facility]wayEstimat Glomerular Filtration Rate 2019-09-22 17:21:00* Test Item Value Reference Range Interpretation Comments Estimat Glomerular Filtration Rate (test code = 253784603) 37 >60 L Ranges were taken from the National Kidney Disease Education Program and the [facility] literature.Reference ranges:60 or greater: Xwaoog55-20 ( for 3 consecutive months): Chronic kidney disease 15 or less: Kidney failureW[facility] Health Surgical Hospital at ParkwayGlucose Kmtvs4432-89-41 17:21:00* Test Item Value Reference Range Interpretation Comments Glucose Level (test code = OPZ0181) 261 74-118 H [facility]wayCalcium Wpqzk9380-82-87 17:21:00* Test Item Value Reference Range Interpretation Comments Calcium Level (test code = 93406-4) 8.5 8.4-10.2 [facility]wayCreatine Kinase [id number] 03:21:00* Test Item Value Reference Range Interpretation Comments Creatine Kinase MB (test code = 47936-4) 1.20 0-5.0 [facility]wayTroponin [id number] 03:21:00* Test Item Value Reference Range Interpretation Comments Troponin I (test code = SIP4732) 0.003 0-0.300 [facility] ParkwayCreatine Kinase [id number] 03:21:00* Test Item Value Reference Range Interpretation Comments Creatine Kinase MB (test code = 57973-1) 1.20 0-5.0 [facility]wayTroponin [id number] 03:21:00* Test Item Value Reference Range Interpretation Comments Troponin I (test code = ARQ2763) 0.003 0-0.300 [facility]wayCreatine Sjwajz6131-70-16 03:16:00* Test Item Value Reference Range Interpretation Comments Creatine Kinase (test code = 2157-6) 89 30-200 [facility]wayCreatine Lfqdbl1992-03-96 03:16:00* Test Item Value Reference Range Interpretation Comments Creatine Kinase (test code = 2157-6) 89 30-200 [facility]wayCT CHEST [id number] 01:36:[address] [place] [address] Patient Name: DIANE OREILLY MR #: [id number] : 1935 Age/Sex: 83/M Req #: [id number] Adm Physician: Ordered by: NILE ALMANZAR MD Report #: [id number] Location: ER Room/Bed: Procedure: [id number] CT/CT CHEST W Exam Date: Exam Time: [...] pulmonary arteries. Signed by: Dr. Jorge Luis Pantoja M.D. on 05/21/2019 1:49 AM Dictated By: JORGE LUIS PANTOJA MD 8 Transcribed By: KIERA on 05/21/19148 COPY TO: NILE ALMANZAR MD Urine [id number] 23:07:00* Test Item Value Reference Range Interpretation Comments Urine WBC (test code = 5821-4) 0-5 0-5 [facility]wayUrine [id number] 23:07:00* Test Item Value Reference Range Interpretation Comments Urine RBC (test code = 75429-9) 0-5 0-5 [facility]wayUrine Cbwpixrg4602-55-21 23:07:00* Test Item Value Reference Range Interpretation Comments Urine Bacteria (test code = 74050-6) NONE NONE [facility] ParkwayUrine Epithelial [id number] 23:07:00 * Test Item Value Reference Range Interpretation Comments Urine Epithelial Cells (test code = 91331-5) NONE NONE [facility] ParkwayUrine [id number] 23:07:00* Test Item Value Reference Range Interpretation Comments Urine WBC (test code = 5821-4) 0-5 0-5 [facility]wayUrine [id number] 23:07:00* Test Item Value Reference Range Interpretation Comments Urine RBC (test code = 31087-0) 0-5 0-5 [facility]wayUrine Ucbjxrlw1518-19-01 23:07:00* Test Item Value Reference Range Interpretation Comments Urine Bacteria (test code = 86501-8) NONE NONE [facility]wayUrine Epithelial [id number] 23:07:00 * Test Item Value Reference Range Interpretation Comments Urine Epithelial Cells (test code = 87160-3) NONE NONE [facility]wayUrine [id number] 23:01:00* Test Item Value Reference Range Interpretation Comments Urine Color (test code = 5778-6) YELLOW YELLOW [facility]wayUrine Tbzykga0246-75-27 23:01:00* Test Item Value Reference Range Interpretation Comments Urine Clarity (test code = 86463-0) CLEAR CLEAR [facility] ParkwayUrine Specific [id number] 23:01:00 * Test Item Value Reference Range Interpretation Comments Urine Specific [place] (test code = 5811-5) 1.010 1.010-1.02 5 [facility]wayUrine [id number] 23:01:00* Test Item Value Reference Range Interpretation Comments Urine pH (test code = 94824-2) 6 5-7 [facility] Leukocyte Wbjgeaxd1019-91-87 23:01:00* Test Item Value Reference Range Interpretation Comments Urine Leukocyte Esterase (test code = 57741-4) NEGATIVE NEGATIV E [facility] [id number] 23:01:00* Test Item Value Reference Range Interpretation Comments Urine Nitrite (test code = 92898-7) NEGATIVE NEGATIVE [facility] Zwrdiil6185-00-47 23:01:00* Test Item Value Reference Range Interpretation Comments Urine Protein (test code = 22562-1) TRACE NEGATIVE H [facility] Glucose (UA)2019-05-20 23:01:00* Test Item Value Reference Range Interpretation Comments Urine Glucose (UA) (test code = 86299-9) 3+ NEGATIVE [facility] Wggcyqm8758-14-34 23:01:00* Test Item Value Reference Range Interpretation Comments Urine Ketones (test code = 70792-7) NEGATIVE NEGATIVE [facility] Phroevztuszf3588-24-90 23:01:00* Test Item Value Reference Range Interpretation Comments Urine Urobilinogen (test code = 97408-5) 0.2 0.2-1 [facility] Doybolscx6500-49-82 23:01:00* Test Item Value Reference Range Interpretation Comments Urine Bilirubin (test code = 1977-8) NEGATIVE NEGATIVE [facility] Ugxen0799-03-25 23:01:00* Test Item Value Reference Range Interpretation Comments Urine Blood (test code = 41034-7) NEGATIVE NEGATIVE [facility] [id number] 23:01:00* Test Item Value Reference Range Interpretation Comments Urine Color (test code = 5778-6) YELLOW YELLOW [facility]wayUrine Jlzbycv2414-72-50 23:01:00* Test Item Value Reference Range Interpretation Comments Urine Clarity (test code = 53594-8) CLEAR CLEAR [facility]wayU[facility] Specific Evraylx8550-52-45 23:01:00 * Test Item Value Reference Range Interpretation Comments Urine Specific [place] (test code = 5811-5) 1.010 1.010-1.02 5 [facility]wayU[facility] [id number] 23:01:00* Test Item Value Reference Range Interpretation Comments Urine pH (test code = 19897-1) 6 5-7 [facility] Leukocyte Uisrdwso5279-20-22 23:01:00* Test Item Value Reference Range Interpretation Comments Urine Leukocyte Esterase (test code = 36327-5) NEGATIVE NEGATIV E [facility]wayU[facility] Ixgdvxe8390-66-88 23:01:00* Test Item Value Reference Range Interpretation Comments Urine Nitrite (test code = 05466-2) NEGATIVE NEGATIVE [facility]wayUrine [id number] 23:01:00* Test Item Value Reference Range Interpretation Comments Urine Protein (test code = 75507-5) TRACE NEGATIVE H [facility]wayUrine Glucose (UA)2019-05-20 23:01:00* Test Item Value Reference Range Interpretation Comments Urine Glucose (UA) (test code = 41834-3) 3+ NEGATIVE [facility]wayU[facility] Tcpjuni6181-68-31 23:01:00* Test Item Value Reference Range Interpretation Comments Urine Ketones (test code = 96489-9) NEGATIVE NEGATIVE [facility] Pnbudcthuhnx4766-74-85 23:01:00* Test Item Value Reference Range Interpretation Comments Urine Urobilinogen (test code = 48067-1) 0.2 0.2-1 [facility] [facility]wayUrine Fvbarcopl9622-10-69 23:01:00* Test Item Value Reference Range Interpretation Comments Urine Bilirubin (test code = 1977-8) NEGATIVE NEGATIVE [facility]wayU[facility] Jauof2664-26-48 23:01:00* Test Item Value Reference Range Interpretation Comments Urine Blood (test code = 89353-1) NEGATIVE NEGATIVE [facility] SINGLE (PORTABLE)2019-05-20 22:30:00 [facility] [address] [address] Patient Name: DAINE OREILLY MR #: [id number] : 1935 Age/Sex: 83/M Req #: [id number] Adm Physician: Ordered by: NATALIIA DAMON [employer]ELOCITY SHOOTER Report #: [id number] Location: ER Room/Bed: Procedure: [id number] DX/CHEST SINGLE (PORTABLE) Exam Date: 05/20/19 Exam [...] osseous abnormality. IMPRESSION: Linear atelectasis or fibrotic nneka nge in the right lung base with right hemidiaphragmatic elevation, similar to prior. No new consolidation. Signed by: Dr. Jorge Luis Pantoja M.D. on 9 10:33 PM Dictated By: JORGE LUIS PANTOJA MD 32 Transcribed By: KIERA on 05/20/192232 COPY TO: NATALIIA DAMON [employer] SHOOTER Sodium Twqwk8635-62-21 22:24:00* Test Item Value Reference Range Interpretation Comments Sodium Level (test code = 2951-2) 138 136-145 [facility]wayPotassium Phjxl6158-24-34 22:24:00* Test Item Value Reference Range Interpretation Comments Potassium Level (test code = 2823-3) 3.8 3.5-5.1 [facility]wayChloride Jxvji3285-77-03 22:24:00* Test Item Value Reference Range Interpretation Comments Chloride Level (test code = 2075-0) 101 98-107 [facility] ParkwayCarbon Dioxide Ubxlb5910-00-29 22:24:00* Test Item Value Reference Range Interpretation Comments Carbon Dioxide Level (test code = 2028-9) 27 22-29 [facility] ParkwayAnion Iht1901-78-88 22:24:00* Test Item Value Reference Range Interpretation Comments Anion Gap (test code = 59912-5) 13.8 8-16 [facility] ParkwayBlood Urea Siiefwri0883-54-60 22:24:00* Test Item Value Reference Range Interpretation Comments Blood Urea Nitrogen (test code = 3094-0) 27 7-26 H [facility] ParkwayCreatinine2019-08-31 22:24:00* Test Item Value Reference Range Interpretation Comments Creatinine (test code = 2160-0) 1.59 0.72-1.25 H [facility] ParkwayBUN/Creatinine Nmagr1105-92-95 22:24:00* Test Item Value Reference Range Interpretation Comments BUN/Creatinine Ratio (test code = 3097-3) 17 6-25 [facility] ParkwayEstimat Glomerular Filtration Rate 2019-05-20 22:24:00* Test Item Value Reference Range Interpretation Comments Estimat Glomerular Filtration Rate (test code = 232248730) 42 >60 L Ranges were taken from the National Kidney Disease Education Program and the [facility] literature.Reference ranges:60 or greater: Bqozrj85-94 ( for 3 consecutive months): Chronic kidney disease 15 or less: Kidney failureWise Health Surgical Hospital at ParkwayGlucose Oohdl9365-99-10 22:24:00* Test Item Value Reference Range Interpretation Comments Glucose Level (test code = UWS6144) 350 74-118 H [facility] ParkwayCalcium Rsdes5530-60-91 22:24:00* Test Item Value Reference Range Interpretation Comments Calcium Level (test code = 73764-2) 8.8 8.4-10.2 [facility] Uzgakaqzn5192-54-00 22:24:00* Test Item Value Reference Range Interpretation Comments Total Bilirubin (test code = 1975-2) 0.2 0.2-1.2 [facility] ParkwayAspartate Amino Transf (AST/SGOT) 2019-05-20 22:24:00* Test Item Value Reference Range Interpretation Comments Aspartate Amino Transf (AST/SGOT) (test code = Aspartate Amino Transf (AST/SGOT)) 9 5-34 [facility] ParkwayAlanine Aminotransferase (ALT/SGPT) 2019-05-20 22:24:00* Test Item Value Reference Range Interpretation Comments Alanine Aminotransferase (ALT/SGPT) (test code = 1742-6) < 6 0-55 [facility] Rbhvqok0390-56-37 22:24:00* Test Item Value Reference Range Interpretation Comments Total Protein (test code = 2885-2) 6.2 6.5-8.1 L [facility] ParkwayAlbumin2019-08-31 22:24:00* Test Item Value Reference Range Interpretation Comments Albumin (test code = 1751-7) 3.1 3.5-5.0 L [facility] ParkwayGlobulin2019-08-31 22:24:00* Test Item Value Reference Range Interpretation Comments Globulin (test code = 49522-9) 3.1 2.3-3.5 [facility] ParkwayAlbumin/Globulin Pnufh2221-47-00 22:24:00 * Test Item Value Reference Range Interpretation Comments Albumin/Globulin Ratio (test code = 1759-0) 1.0 0.8-2.0 [facility] ParkwayAlkaline Hopguadkxdj7737-60-83 22:24:00* Test Item Value Reference Range Interpretation Comments Alkaline Phosphatase (test code = 6768-6) 95 40-150 [facility] Bghdifrjt6713-27-11 22:24:00* Test Item Value Reference Range Interpretation Comments Total Bilirubin (test code = 1975-2) 0.2 0.2-1.2 [facility] ParkwayAspartate Amino Transf (AST/SGOT) 2019-05-20 22:24:00* Test Item Value Reference Range Interpretation Comments Aspartate Amino Transf (AST/SGOT) (test code = Aspartate Amino Transf (AST/SGOT)) 9 5-34 [facility] ParkwayAlanine Aminotransferase (ALT/SGPT) 2019-05-20 22:24:00* Test Item Value Reference Range Interpretation Comments Alanine Aminotransferase (ALT/SGPT) (test code = 1742-6) < 6 0-55 [facility] ParkwayTotal Vtpbppg6530-08-50 22:24:00* Test Item Value Reference Range Interpretation Comments Total Protein (test code = 2885-2) 6.2 6.5-8.1 L [facility] ParkwayAlbumin2019-08-31 22:24:00* Test Item Value Reference Range Interpretation Comments Albumin (test code = 1751-7) 3.1 3.5-5.0 L [facility] ParkwayGlobulin2019-08-31 22:24:00* Test Item Value Reference Range Interpretation Comments Globulin (test code = 03992-5) 3.1 2.3-3.5 [facility] ParkwayAlbumin/Globulin Tybnj9335-12-52 22:24:00 * Test Item Value Reference Range Interpretation Comments Albumin/Globulin Ratio (test code = 1759-0) 1.0 0.8-2.0 [facility] ParkwayAlkaline Hkwhdeasjnf8863-29-48 22:24:00* Test Item Value Reference Range Interpretation Comments Alkaline Phosphatase (test code = 6768-6) 95 40-150 [facility] ParkwayB-Type Natriuretic Qbehmua1949-91-29 22:23:00* Test Item Value Reference Range Interpretation Comments B-Type Natriuretic Peptide (test code = 27266-5) 167.2 0-100 H [facility] ParkwayB-Type Natriuretic Acjqppq9749-50-49 22:23:00* Test Item Value Reference Range Interpretation Comments B-Type Natriuretic Peptide (test code = 15490-4) 167.2 0-100 H [facility] ParkwayProthrombin Dnjx6450-88-26 21:59:00* Test Item Value Reference Range Interpretation Comments Prothrombin Time (test code = 5902-2) 24.0 11.9-14.5 H [facility] ParkwayProthromb Time International Ratio 2019-05-20 21:59:00* Test Item Value Reference Range Interpretation Comments Prothromb Time International Ratio (test code = 6301-6) 2.07 Oral Anticoagulant Therapy INR Values:1. Low Intensity Therapy 1.5 - 2.02 . Moderate Intensity Therapy 2.0 - 3.03. High Intensity Therapy(1) 2.5 - 3. 54. High Intensity Therapy(2) 3.0 - 4.05. Panic Value INR > 5.0 [facility] ParkwayActivated Partial Thromboplast Time 2019-05-20 21:59:00* Test Item Value Reference Range Interpretation Comments Activated Partial Thromboplast Time (test code = 32854-2) 41.3 23.8-35.5 H [facility] ParkwayProthrombin Umvg6212-04-05 21:59:00* Test Item Value Reference Range Interpretation Comments Prothrombin Time (test code = 5902-2) 24.0 11.9-14.5 H [facility] ParkwayProthromb Time International Ratio 2019-05-20 21:59:00* Test Item Value Reference Range Interpretation Comments Prothromb Time International Ratio (test code = 6301-6) 2.07 Oral Anticoagulant Therapy INR Values:1. Low Intensity Therapy 1.5 - 2.02 . Moderate Intensity Therapy 2.0 - 3.03. High Intensity Therapy(1) 2.5 - 3. 54. High Intensity Therapy(2) 3.0 - 4.05. Panic Value INR > 5.0 [facility] ParkwayActivated Partial Thromboplast Time 2019-05-20 21:59:00* Test Item Value Reference Range Interpretation Comments Activated Partial Thromboplast Time (test code = 85544-4) 41.3 23.8-35.5 H [facility] ParkwayWhite Blood Yjblj6299-10-75 21:48:00* Test Item Value Reference Range Interpretation Comments White Blood Count (test code = 6690-2) 9.82 4.8-10.8 [facility] ParkwayRed Blood Pzhpz8560-71-02 21:48:00* Test Item Value Reference Range Interpretation Comments Red Blood Count (test code = 789-8) 3.50 4.3-5.7 L [facility] ParkwayHemoglobin2019-08-31 21:48:00* Test Item Value Reference Range Interpretation Comments Hemoglobin (test code = 57330-9) 9.0 14.0-18.0 L [facility] ParkwayHematocrit2019-08-31 21:48:00* Test Item Value Reference Range Interpretation Comments Hematocrit (test code = 4544-3) 29.4 38.2-49.6 L [facility] ParkwayMean Corpuscular Etdzvx1947-12-51 21:48:00* Test Item Value Reference Range Interpretation Comments Mean Corpuscular Volume (test code = 787-2) 84.0 81-99 [facility]wayMean Corpuscular Bllmksonmi7704-11-63 21:48:00* Test Item Value Reference Range Interpretation Comments Mean Corpuscular Hemoglobin (test code = 785-6) 25.7 28-32 L [facility] ParkwayMean Corpuscular Hemoglobin Concent 2019-05-20 21:48:00* Test Item Value Reference Range Interpretation Comments Mean Corpuscular Hemoglobin Concent (test code = 786-4) 30.6 31-35 L [facility] ParkwayRed Cell Distribution Ttjpe7822-84-03 21:48:00* Test Item Value Reference Range Interpretation Comments Red Cell Distribution Width (test code = 48294-0) 15.8 11.7 -14.4 H [facility] ParkwayPlatelet Eifts1272-58-53 21:48:00* Test Item Value Reference Range Interpretation Comments Platelet Count (test code = 777-3) 246 140-360 [facility] ParkwayNeutrophils (%) (Auto)2019-05-20 21:48:00 * Test Item Value Reference Range Interpretation Comments Neutrophils (%) (Auto) (test code = 01426-9) 73.7 38.7-80.0 [facility] ParkwayLymphocytes (%) (Auto)2019-05-20 21:48:00 * Test Item Value Reference Range Interpretation Comments Lymphocytes (%) (Auto) (test code = 736-9) 15.0 18.0-39.1 L [facility] ParkwayMonocytes (%) (Auto)2019-05-20 21:48:00* Test Item Value Reference Range Interpretation Comments Monocytes (%) (Auto) (test code = 5905-5) 7.2 4.4-11.3 [facility] ParkwayEosinophils (%) (Auto)2019-05-20 21:48:00 * Test Item Value Reference Range Interpretation Comments Eosinophils (%) (Auto) (test code = 713-8) 2.9 0.0-6.0 [facility] ParkwayBasophils (%) (Auto)2019-05-20 21:48:00* Test Item Value Reference Range Interpretation Comments Basophils (%) (Auto) (test code = 706-2) 0.5 0.0-1.0 [facility] ParkwayIM GRANULOCYTES %2019-05-20 21:48:00* Test Item Value Reference Range Interpretation Comments IM GRANULOCYTES % (test code = IM GRANULOCYTES %) 0.7 0.0- 1.0 [facility] ParkwayNeutrophils # (Auto)2019-05-20 21:48:00* Test Item Value Reference Range Interpretation Comments Neutrophils # (Auto) (test code = 751-8) 7.2 2.1-6.9 H [facility] ParkwayLymphocytes # (Auto)2019-05-20 21:48:00* Test Item Value Reference Range Interpretation Comments Lymphocytes # (Auto) (test code = 10923-8) 1.5 1.0-3.2 [facility] ParkwayMonocytes # (Auto)2019-05-20 21:48:00* Test Item Value Reference Range Interpretation Comments Monocytes # (Auto) (test code = 742-7) 0.7 0.2-0.8 [facility] ParkwayEosinophils # (Auto)2019-05-20 21:48:00* Test Item Value Reference Range Interpretation Comments Eosinophils # (Auto) (test code = 711-2) 0.3 0.0-0.4 [facility] ParkwayBasophils # (Auto)2019-05-20 21:48:00* Test Item Value Reference Range Interpretation Comments Basophils # (Auto) (test code = 704-7) 0.1 0.0-0.1 [facility] ParkwayAbsolute Immature Granulocyte (auto 2019-05-20 21:48:00* Test Item Value Reference Range Interpretation Comments Absolute Immature Granulocyte (auto (gilberto t code = Absolute Immature Granulocyte (auto) 0.07 0-0.1 [facility] ParkwayWhite Blood Ffviz9919-70-95 21:48:00* Test Item Value Reference Range Interpretation Comments White Blood Count (test code = 6690-2) 9.82 4.8-10.8 [facility] ParkwayRed Blood Mzlrk6474-79-40 21:48:00* Test Item Value Reference Range Interpretation Comments Red Blood Count (test code = 789-8) 3.50 4.3-5.7 L [facility] ParkwayMean Corpuscular Fqefgw0791-76-82 21:48:00* Test Item Value Reference Range Interpretation Comments Mean Corpuscular Volume (test code = 787-2) 84.0 81-99 [facility] ParkwayMean Corpuscular Gmdqceiaog9965-76-83 21:48:00* Test Item Value Reference Range Interpretation Comments Mean Corpuscular Hemoglobin (test code = 785-6) 25.7 28-32 L [facility] ParkwayMean Corpuscular Hemoglobin Concent 2019-05-20 21:48:00* Test Item Value Reference Range Interpretation Comments Mean Corpuscular Hemoglobin Concent (test code = 786-4) 30.6 31-35 L [facility] ParkwayRed Cell Distribution Npnyx5261-51-11 21:48:00* Test Item Value Reference Range Interpretation Comments Red Cell Distribution Width (test code = 05965-0) 15.8 11.7 -14.4 H [facility] ParkwayPlatelet Ubmhg6431-57-85 21:48:00* Test Item Value Reference Range Interpretation Comments Platelet Count (test code = 777-3) 246 140-360 [facility] ParkwayNeutrophils (%) (Auto)2019-05-20 21:48:00 * Test Item Value Reference Range Interpretation Comments Neutrophils (%) (Auto) (test code = 44206-5) 73.7 38.7-80.0 [facility] ParkwayLymphocytes (%) (Auto)2019-05-20 21:48:00 * Test Item Value Reference Range Interpretation Comments Lymphocytes (%) (Auto) (test code = 736-9) 15.0 18.0-39.1 L [facility] ParkwayMonocytes (%) (Auto)2019-05-20 21:48:00* Test Item Value Reference Range Interpretation Comments Monocytes (%) (Auto) (test code = 5905-5) 7.2 4.4-11.3 [facility] ParkwayEosinophils (%) (Auto)2019-05-20 21:48:00 * Test Item Value Reference Range Interpretation Comments Eosinophils (%) (Auto) (test code = 713-8) 2.9 0.0-6.0 [facility] ParkwayBasophils (%) (Auto)2019-05-20 21:48:00* Test Item Value Reference Range Interpretation Comments Basophils (%) (Auto) (test code = 706-2) 0.5 0.0-1.0 [facility] ParkwayIM GRANULOCYTES %2019-05-20 21:48:00* Test Item Value Reference Range Interpretation Comments IM GRANULOCYTES % (test code = IM GRANULOCYTES %) 0.7 0.0- 1.0 [facility] ParkwayNeutrophils # (Auto)2019-05-20 21:48:00* Test Item Value Reference Range Interpretation Comments Neutrophils # (Auto) (test code = 751-8) 7.2 2.1-6.9 H [facility] ParkwayLymphocytes # (Auto)2019-05-20 21:48:00* Test Item Value Reference Range Interpretation Comments Lymphocytes # (Auto) (test code = 10278-1) 1.5 1.0-3.2 [facility] ParkwayMonocytes # (Auto)2019-05-20 21:48:00* Test Item Value Reference Range Interpretation Comments Monocytes # (Auto) (test code = 742-7) 0.7 0.2-0.8 [facility] ParkwayEosinophils # (Auto)2019-05-20 21:48:00* Test Item Value Reference Range Interpretation Comments Eosinophils # (Auto) (test code = 711-2) 0.3 0.0-0.4 [facility] ParkwayBasophils # (Auto)2019-05-20 21:48:00* Test Item Value Reference Range Interpretation Comments Basophils # (Auto) (test code = 704-7) 0.1 0.0-0.1 [facility] ParkwayAbsolute Immature Granulocyte (auto 2019-05-20 21:48:00* Test Item Value Reference Range Interpretation Comments Absolute Immature Granulocyte (auto (gilberto t code = Absolute Immature Granulocyte (auto) 0.07 0-0.1 [facility] ParkwayCHES 2 EIDAV1047-53-15 16:11:00 [facility] [address] [place] [address] Patient Name: DIANE OREILLY MR #: [id number] : 1935 Age/Sex: 83/M Req #: [id number] Adm Physician: Ordered by: PATI BENJAMIN MD Report #: [id number] Location: [facility] Room/Bed: Procedure: [id number] DX/ CHEST 2 VIEWS Exam Date: Exam [...] 1616 COPY TO: PATI BENJAMIN MD Bedside Tjalhtf3215-54-86 11:29:00* Test Item Value Reference Range Interpretation Comments Bedside Glucose (test code = 04609-2) 307 70-120 H Meter ID: [id number] Health [facility] ParkwayBedside Glucose 2018-12-28 11:29:00* Test Item Value Reference Range Interpretation Comments Bedside Glucose (test code = 31249-4) 307 70-120 H Meter ID: [id number] Health [facility] ParkwayProthrombin Time 2018-12-28 05:58:00* Test Item Value Reference Range Interpretation Comments Prothrombin Time (test code = 5902-2) 21.5 11.9-14.5 H [facility] ParkwayProthromb Time International Ratio 2018-12-28 05:58:00* Test Item Value Reference Range Interpretation Comments Prothromb Time International Ratio (test code = 6301-6) 1.80 Oral Anticoagulant Therapy INR Values:1. Low Intensity Therapy 1.5 - 2.02 . Moderate Intensity Therapy 2.0 - 3.03. High Intensity Therapy(1) 2.5 - 3. 54. High Intensity Therapy(2) 3.0 - 4.05. Panic Value INR > 5.0 [facility] ParkwayWRIST LEFT 2 LNDJD5685-24-75 07:27:00 [facility] [address] [address] Patient Name: DIANE OREILLY MR #: [id number] : 1935 Age/Sex: 83/M Req #: [id number] Adm Physician: VIDYA BROWNLEE MD Ordered by: VIDYA BROWNLEE MD Report #: [id number] [facility] Procedure: [id number] DX/ WRIST LEFT 2 VIEWS Exam Date: [...] the radial styloid. No evidence of ac [place] fracture or malalignment. There are moderate degenerative [...] 733 COPY TO: VIDYA BROWNLEE MD Blood Stjkphg2468-96-67 03:20:00* Test Item Value Reference Range Interpretation Comments Blood Culture (test code = 17563876) NO GROWTH AFTER 5 DAYS, FINAL REPORT [facility] Tkdtegy2036-29-88 03:20:00* Test Item Value Reference Range Interpretation Comments Blood Culture (test code = 20448628) NO GROWTH AFTER 5 DAYS, FINAL REPORT [facility] Rwqfbbd1748-06-27 03:20:00* Test Item Value Reference Range Interpretation Comments Blood Culture (test code = 30024193) NO GROWTH AFTER 5 DAYS, [facility]PORT [facility] Uxeai3827-32-98 07:44:00* Test Item Value Reference Range Interpretation Comments Sodium Level (test code = 2951-2) 133 136-145 L [facility] ParkwayPotassium Umdbf2759-40-00 07:44:00* Test Item Value Reference Range Interpretation Comments Potassium Level (test code = 2823-3) 4.0 3.5-5.1 [facility] ParkwayChloride Ihpnl5324-73-15 07:44:00* Test Item Value Reference Range Interpretation Comments Chloride Level (test code = 2075-0) 92 98-107 L [facility] ParkwayCarbon Dioxide Seklc0682-19-40 07:44:00* Test Item Value Reference Range Interpretation Comments Carbon Dioxide Level (test code = 2028-9) 32 22-29 H [facility] ParkwayAnion Zng3627-24-95 07:44:00* Test Item Value Reference Range Interpretation Comments Anion Gap (test code = 00855-8) 13.0 8-16 [facility] Urea Lzrknunp6492-09-42 07:44:00* Test Item Value Reference Range Interpretation Comments Blood Urea Nitrogen (test code = 3094-0) 43 7-26 H [facility] ParkwayCreatinine2019-04-08 07:44:00* Test Item Value Reference Range Interpretation Comments Creatinine (test code = 2160-0) 1.54 0.72-1.25 H [facility] ParkwayBUN/Creatinine Czeau7614-78-09 07:44:00* Test Item Value Reference Range Interpretation Comments BUN/Creatinine Ratio (test code = 3097-3) 28 6-25 H [facility] ParkwayEstimat Glomerular Filtration Rate 2018-12-26 07:44:00* Test Item Value Reference Range Interpretation Comments Estimat Glomerular Filtration Rate (test code = 674553146) 43 >60 L Ranges were taken from the National Kidney Disease Education Program and the [facility] Kidney Foundation literature.Reference ranges:60 or greater: Vhwqpc58-76 ( for 3 consecutive months): Chronic kidney disease 15 or less: Kidney failureWise Health Surgical Hospital at ParkwayGlucose Idxhz2255-77-25 07:44:00* Test Item Value Reference Range Interpretation Comments Glucose Level (test code = OAE9780) 457 74-118 Results repeated and called to QUINN KIMBALL at 0744 on 12/26/18 by Hossein Lam. Gonzales kelly back and verified.[facility] ParkwayCalcium Level 2018-12-26 07:44:00* Test Item Value Reference Range Interpretation Comments Calcium Level (test code = 48892-3) 9.1 8.4-10.2 [facility] ParkwayTotal Hjcvxgwyy7698-28-78 07:44:00* Test Item Value Reference Range Interpretation Comments Total Bilirubin (test code = 1975-2) 0.2 0.2-1.2 [facility] ParkwayAspartate Amino Transf (AST/SGOT) 2018-12-26 07:44:00* Test Item Value Reference Range Interpretation Comments Aspartate Amino Transf (AST/SGOT) (test code = Aspartate Amino Transf (AST/SGOT)) 13 5-34 [facility] ParkwayAlanine Aminotransferase (ALT/SGPT) 2018-12-26 07:44:00* Test Item Value Reference Range Interpretation Comments Alanine Aminotransferase (ALT/SGPT) (test code = 1742-6) 14 0-55 [facility] ParkwayTotal Qgpgpum4622-65-64 07:44:00* Test Item Value Reference Range Interpretation Comments Total Protein (test code = 2885-2) 5.7 6.5-8.1 L [facility] ParkwayAlbumin2019-04-08 07:44:00* Test Item Value Reference Range Interpretation Comments Albumin (test code = 1751-7) 2.5 3.5-5.0 L [facility] ParkwayGlobulin2019-04-08 07:44:00* Test Item Value Reference Range Interpretation Comments Globulin (test code = 86381-8) 3.2 2.3-3.5 [facility] ParkwayAlbumin/Globulin Zgkih4991-77-56 07:44:00 * Test Item Value Reference Range Interpretation Comments Albumin/Globulin Ratio (test code = 1759-0) 0.8 0.8-2.0 [facility] ParkwayAlkaline Chimnjzrqhd5922-78-08 07:44:00* Test Item Value Reference Range Interpretation Comments Alkaline Phosphatase (test code = 6768-6) 78 40-150 [facility] ParkwayMagnesium Tfnqd0352-67-43 07:43:00* Test Item Value Reference Range Interpretation Comments Magnesium Level (test code = 78593-8) 1.7 1.3-2.1 [facility] ParkwayMagnesium Olbby4584-32-54 07:43:00* Test Item Value Reference Range Interpretation Comments Magnesium Level (test code = 60174-7) 1.7 1.3-2.1 [facility] ParkwayMagnesium Kjzft1529-77-71 07:43:00* Test Item Value Reference Range Interpretation Comments Magnesium Level (test code = 61518-3) 1.7 1.3-2.1 [facility] ParkwayWhite Blood Danhf9489-06-80 06:56:00* Test Item Value Reference Range Interpretation Comments White Blood Count (test code = 6690-2) 10.83 4.8-10.8 H [facility] ParkwayRed Blood Vxovm6323-79-45 06:56:00* Test Item Value Reference Range Interpretation Comments Red Blood Count (test code = 789-8) 3.64 4.3-5.7 L [facility] ParkwayHemoglobin2019-04-08 06:56:00* Test Item Value Reference Range Interpretation Comments Hemoglobin (test code = 55914-4) 10.7 14.0-18.0 L [facility]wayHematocrit2019-04-08 06:56:00* Test Item Value Reference Range Interpretation Comments Hematocrit (test code = 4544-3) 32.3 38.2-49.6 L [facility] ParkwayMean Corpuscular Kkaxbb3148-30-82 06:56:00* Test Item Value Reference Range Interpretation Comments Mean Corpuscular Volume (test code = 787-2) 88.7 81-99 [facility] ParkwayMean Corpuscular Felfcgsvrm5155-75-90 06:56:00* Test Item Value Reference Range Interpretation Comments Mean Corpuscular Hemoglobin (test code = 785-6) 29.4 28-32 [facility] ParkwayMean Corpuscular Hemoglobin Concent 2018-12-26 06:56:00* Test Item Value Reference Range Interpretation Comments Mean Corpuscular Hemoglobin Concent (test code = 786-4) 33.1 31-35 [facility] ParkwayRed Cell Distribution Vqipa9383-27-11 06:56:00* Test Item Value Reference Range Interpretation Comments Red Cell Distribution Width (test code = 28733-1) 15.0 11.7 -14.4 H [facility] ParkwayPlatelet Zlzmk2624-60-85 06:56:00* Test Item Value Reference Range Interpretation Comments Platelet Count (test code = 777-3) 250 140-360 [facility] ParkwayNeutrophils (%) (Auto)2018-12-26 06:56:00 * Test Item Value Reference Range Interpretation Comments Neutrophils (%) (Auto) (test code = 75550-4) 87.8 38.7-80.0 H [facility] ParkwayLymphocytes (%) (Auto)2018-12-26 06:56:00 * Test Item Value Reference Range Interpretation Comments Lymphocytes (%) (Auto) (test code = 736-9) 6.3 18.0-39.1 L [facility]wayMonocytes (%) (Auto)2018-12-26 06:56:00* Test Item Value Reference Range Interpretation Comments Monocytes (%) (Auto) (test code = 5905-5) 3.4 4.4-11.3 L [facility]wayEosinophils (%) (Auto)2018-12-26 06:56:00 * Test Item Value Reference Range Interpretation Comments Eosinophils (%) (Auto) (test code = 713-8) 0.0 0.0-6.0 [facility] ParkwayBasophils (%) (Auto)2018-12-26 06:56:00* Test Item Value Reference Range Interpretation Comments Basophils (%) (Auto) (test code = 706-2) 0.3 0.0-1.0 [facility] ParkwayIM GRANULOCYTES %2018-12-26 06:56:00* Test Item Value Reference Range Interpretation Comments IM GRANULOCYTES % (test code = IM GRANULOCYTES %) 2.2 0.0- 1.0 H [facility]wayNeutrophils # (Auto)2018-12-26 06:56:00* Test Item Value Reference Range Interpretation Comments Neutrophils # (Auto) (test code = 751-8) 9.5 2.1-6.9 H [facility] ParkwayLymphocytes # (Auto)2018-12-26 06:56:00* Test Item Value Reference Range Interpretation Comments Lymphocytes # (Auto) (test code = 11728-2) 0.7 1.0-3.2 L [facility] ParkwayMonocytes # (Auto)2018-12-26 06:56:00* Test Item Value Reference Range Interpretation Comments Monocytes # (Auto) (test code = 742-7) 0.4 0.2-0.8 [facility]wayEosinophils # (Auto)2018-12-26 06:56:00* Test Item Value Reference Range Interpretation Comments Eosinophils # (Auto) (test code = 711-2) 0.0 0.0-0.4 [facility]wayBasophils # (Auto)2018-12-26 06:56:00* Test Item Value Reference Range Interpretation Comments Basophils # (Auto) (test code = 704-7) 0.0 0.0-0.1 [facility] ParkwayAbsolute Immature Granulocyte (auto 2018-12-26 06:56:00* Test Item Value Reference Range Interpretation Comments Absolute Immature Granulocyte (auto (gilberto t code = Absolute Immature Granulocyte (auto) 0.24 0-0.1 H [facility] ParkwayCreatine Ptxedi4500-89-06 11:49:00* Test Item Value Reference Range Interpretation Comments Creatine Kinase (test code = 2157-6) 28 30-200 L [facility] ParkwayCreatine Kinase MZ1669-86-51 11:47:00* Test Item Value Reference Range Interpretation Comments Creatine Kinase MB (test code = 20973-8) 1.10 0-5.0 [facility] ParkwayTroponin Q9844-83-99 11:47:00* Test Item Value Reference Range Interpretation Comments Troponin I (test code = MRI9092) 0.035 0-0.300 [facility] ParkwayCHEST SINGLE (PORTABLE)2018-12-22 05:54:00 [place] [address] Patient Name: DIANE OREILLY MR #: [id number] : 1935 Age/Sex: 83/M Req #: [id number] Adm Physician: VIDYA BROWNLEE MD Ordered by: SUNNY WU MD Report #: [id number] Location: MED/SURG2 Room/Bed: [facility] Procedure: [id number] DX/CHEST SINGLE (PORTABLE) Exam Date: Exam Time: [...] 12/22/18556 COPY TO: SUNNY WU MD Urine [id number] 20:41:00* Test Item Value Reference Range Interpretation Comments Urine WBC (test code = 5821-4) NONE 0-5 [facility] ParkwayUrine QXH6768-10-62 20:41:00* Test Item Value Reference Range Interpretation Comments Urine RBC (test code = 90606-9) NONE 0-5 [facility] ParkwayUrine Yvrlnpdn0932-26-03 20:41:00* Test Item Value Reference Range Interpretation Comments Urine Bacteria (test code = 64230-7) MODERATE NONE H [facility] ParkwayUrine Epithelial Wanct6769-81-33 20:41:00 * Test Item Value Reference Range Interpretation Comments Urine Epithelial Cells (test code = 03768-4) NONE NONE [facility] ParkwayUrine Amorphous Meaxzgtc8427-99-43 20:41:00* Test Item Value Reference Range Interpretation Comments Urine Amorphous Sediment (test code = 8246-1) MODERATE FEW H [facility] ParkwayUrine Amorphous Xdauwmkl2262-85-45 20:41:00* Test Item Value Reference Range Interpretation Comments Urine Amorphous Sediment (test code = 8246-1) MODERATE FEW H [facility] ParkwayUrine Amorphous Znapuuwz2076-46-63 20:41:00* Test Item Value Reference Range Interpretation Comments Urine Amorphous Sediment (test code = 8246-1) MODERATE FEW H [facility] ParkwayUrine Qleda0865-70-20 20:30:00* Test Item Value Reference Range Interpretation Comments Urine Color (test code = 5778-6) YELLOW YELLOW [facility] ParkwayUrine Ihfnwgj9700-25-97 20:30:00* Test Item Value Reference Range Interpretation Comments Urine Clarity (test code = 22812-2) SL CLOUDY CLEAR H [facility] ParkwayUrine Specific Gochgqv3445-29-78 20:30:00 * Test Item Value Reference Range Interpretation Comments Urine Specific [place] (test code = 5811-5) 1.025 1.010-1.02 5 [facility] ParkwayUrine nS4426-55-26 20:30:00* Test Item Value Reference Range Interpretation Comments Urine pH (test code = 30143-6) 5 5-7 [facility] ParkwayUrine Leukocyte Dobimmax0029-33-89 20:30:00* Test Item Value Reference Range Interpretation Comments Urine Leukocyte Esterase (test code = 5799-2) NEGATIVE NEGATIVE [facility] ParkwayUrine Kfpndam4348-09-37 20:30:00* Test Item Value Reference Range Interpretation Comments Urine Nitrite (test code = 84498-1) NEGATIVE NEGATIVE [facility] ParkwayUrine Toimlau1655-52-53 20:30:00* Test Item Value Reference Range Interpretation Comments Urine Protein (test code = 5804-0) 2+ NEGATIVE H [facility] ParkwayUrine Glucose (UA)2018-12-21 20:30:00* Test Item Value Reference Range Interpretation Comments Urine Glucose (UA) (test code = 2349-9) 2+ NEGATIVE H [facility] ParkwayUrine Arpeipt8349-17-13 20:30:00* Test Item Value Reference Range Interpretation Comments Urine Ketones (test code = 66314-6) NEGATIVE NEGATIVE [facility] ParkwayUrine Lfuqssuuhvbq2243-51-70 20:30:00* Test Item Value Reference Range Interpretation Comments Urine Urobilinogen (test code = 32515-4) 0.2 0.2-1 [facility] ParkwayUrine Irmjtnlym2221-99-22 20:30:00* Test Item Value Reference Range Interpretation Comments Urine Bilirubin (test code = 1978-6) NEGATIVE NEGATIVE [facility] ParkwayUrine Fzolp9010-70-13 20:30:00* Test Item Value Reference Range Interpretation Comments Urine Blood (test code = 15202-9) TRACE NEGATIVE H [facility] ParkwayDifferential Total Cells Counted 2018-12-21 20:19:00* Test Item Value Reference Range Interpretation Comments Differential Total Cells Counted (test code = Differen tial Total Cells Counted) 100 [facility] ParkwayNeutrophils % (Manual)2018-12-21 20:19:00 * Test Item Value Reference Range Interpretation Comments Neutrophils % (Manual) (test code = 90301-1) 85 40-74 H [facility] ParkwayLymphocytes % (Manual)2018-12-21 20:19:00 * Test Item Value Reference Range Interpretation Comments Lymphocytes % (Manual) (test code = 737-7) 1 19-48 L [facility] ParkwayMonocytes % (Manual)2018-12-21 20:19:00* Test Item Value Reference Range Interpretation Comments Monocytes % (Manual) (test code = 744-3) 13 3.4-9.0 H [facility] ParkwayReactive Ccahrqztlzp4026-91-49 20:19:00* Test Item Value Reference Range Interpretation Comments Reactive Lymphocytes (test code = 84632-3) 1 [facility] ParkwayPlatelet Govadfsi9043-02-48 20:19:00* Test Item Value Reference Range Interpretation Comments Platelet Estimate (test code = 90696-0) ADEQUATE [facility] ParkwayPlatelet Morphology Ufgkehx6724-71-61 20:19:00* Test Item Value Reference Range Interpretation Comments Platelet Morphology Comment (test code = 39077-2) FEW LARGE [facility] ParkwayMacrocytosis2019-04-03 20:19:00* Test Item Value Reference Range Interpretation Comments Macrocytosis (test code = 738-5) SLIGHT [facility] ParkwayRed Cell Morphology Xjfhcow7128-00-34 20:19:00* Test Item Value Reference Range Interpretation Comments Red Cell Morphology Comment (test code = 6742-1) NORMAL [facility] ParkwayDifferential Total Cells Counted 2018-12-21 20:19:00* Test Item Value Reference Range Interpretation Comments Differential Total Cells Counted (test code = Differen tial Total Cells Counted) 100 [facility] ParkwayNeutrophils % (Manual)2018-12-21 20:19:00 * Test Item Value Reference Range Interpretation Comments Neutrophils % (Manual) (test code = 71480-4) 85 40-74 H [facility] ParkwayLymphocytes % (Manual)2018-12-21 20:19:00 * Test Item Value Reference Range Interpretation Comments Lymphocytes % (Manual) (test code = 737-7) 1 19-48 L [facility] ParkwayMonocytes % (Manual)2018-12-21 20:19:00* Test Item Value Reference Range Interpretation Comments Monocytes % (Manual) (test code = 744-3) 13 3.4-9.0 H [facility] ParkwayReactive Jgqvscuepvd7242-35-77 20:19:00* Test Item Value Reference Range Interpretation Comments Reactive Lymphocytes (test code = 46193-6) 1 [facility] ParkwayPlatelet Zpwrmwqq1141-46-41 20:19:00* Test Item Value Reference Range Interpretation Comments Platelet Estimate (test code = 56926-1) ADEQUATE [facility] ParkwayPlatelet Morphology Scqkcey5236-67-50 20:19:00* Test Item Value Reference Range Interpretation Comments Platelet Morphology Comment (test code = 73836-4) FEW LARGE [facility] ParkwayMacrocytosis2019-04-03 20:19:00* Test Item Value Reference Range Interpretation Comments Macrocytosis (test code = 738-5) SLIGHT [facility] ParkwayRed Cell Morphology Vzjclev1866-11-45 20:19:00* Test Item Value Reference Range Interpretation Comments Red Cell Morphology Comment (test code = 6742-1) NORMAL [facility] ParkwayDifferential Total Cells Counted 2018-12-21 20:19:00* Test Item Value Reference Range Interpretation Comments Differential Total Cells Counted (test code = Differen tial Total Cells Counted) 100 [facility] ParkwayNeutrophils % (Manual)2018-12-21 20:19:00 * Test Item Value Reference Range Interpretation Comments Neutrophils % (Manual) (test code = 46446-7) 85 40-74 H [facility] ParkwayLymphocytes % (Manual)2018-12-21 20:19:00 * Test Item Value Reference Range Interpretation Comments Lymphocytes % (Manual) (test code = 737-7) 1 19-48 L [facility] ParkwayMonocytes % (Manual)2018-12-21 20:19:00* Test Item Value Reference Range Interpretation Comments Monocytes % (Manual) (test code = 744-3) 13 3.4-9.0 H [facility] ParkwayReactive Kmtzqfozcgs0189-35-65 20:19:00* Test Item Value Reference Range Interpretation Comments Reactive Lymphocytes (test code = 31000-3) 1 [facility] ParkwayPlatelet Axuvzxck3165-51-28 20:19:00* Test Item Value Reference Range Interpretation Comments Platelet Estimate (test code = 35629-1) ADEQUATE [facility] ParkwayPlatelet Morphology Vjccjon2256-95-54 20:19:00* Test Item Value Reference Range Interpretation Comments Platelet Morphology Comment (test code = 65394-9) FEW LARGE [facility] ParkwayMacrocytosis2019-04-03 20:19:00* Test Item Value Reference Range Interpretation Comments Macrocytosis (test code = 738-5) SLIGHT [facility] ParkwayRed Cell Morphology Mcouevh4408-23-39 20:19:00* Test Item Value Reference Range Interpretation Comments Red Cell Morphology Comment (test code = 6742-1) NORMAL [facility] ParkwayThyroid Stimulating Hormone (TSH) 2018-12-21 20:04:00* Test Item Value Reference Range Interpretation Comments Thyroid Stimulating Hormone (TSH) (test code = 37164-6) 0.782 0.350-4.940 [facility] ParkwayThyroid Stimulating Hormone (TSH) 2018-12-21 20:04:00* Test Item Value Reference Range Interpretation Comments Thyroid Stimulating Hormone (TSH) (test code = 51098-5) 0.782 0.350-4.940 [facility] ParkwayThyroid Stimulating Hormone (TSH) 2018-12-21 20:04:00* Test Item Value Reference Range Interpretation Comments Thyroid Stimulating Hormone (TSH) (test code = 42112-2) 0.782 0.350-4.940 [facility] ParkwayB-Type Natriuretic Duhmndg9161-11-49 19:48:00* Test Item Value Reference Range Interpretation Comments B-Type Natriuretic Peptide (test code = 46680-7) 303.8 0-100 H [facility] ParkwayActivated Partial Thromboplast Time 2018-12-21 19:44:00* Test Item Value Reference Range Interpretation Comments Activated Partial Thromboplast Time (test code = 92726-3) 47.6 23.8-35.5 H [facility] ParkwayCHEST SINGLE (PORTABLE)2018-12-21 17:43:00 [facility] [address] [place] [address] Patient Name: DIANE OREILLY MR #: [id number] : 1935 Age/Sex: 83/M Req #: [id number] Adm Physician: Ordered by: SUNNY WU MD Report #: [id number] Location: ER Room/Bed: Procedure: [id number] DX/CHEST SINGLE (PORTABLE) Exam Date: 12/21/18 Exam Time: 1735 REPORT STATUS: Signed EXAMINATION: CHEST SINGLE (PORTABLE) INDICATION: Pneumonia R/O PNEUMONIA 20181221 Y COMPARISON: September 21, 2018 FINDINGS: TUBES [...] 12/21/181756 COPY TO: SUNNY WU MD Bedside Isemvhe1614-84-90 12:33:00* Test Item Value Reference Range Interpretation Comments Bedside Glucose (test code = 43788-3) 306 70-120 H Meter ID: [id number] [facility] CenterUrine Creatinine 2018-09-28 10:30:00* Test Item Value Reference Range Interpretation Comments Urine Creatinine (test code = 2161-8) 117.00 63-166 [facility] ParkwayUrine Protein/Creatinine Fjkio1610-77-30 10:30:00* Test Item Value Reference Range Interpretation Comments Urine Protein/Creatinine Ratio (test code = 18515-6) 0.16 [facility] ParkwayUrine Urkruyyzkc5447-88-59 10:30:00* Test Item Value Reference Range Interpretation Comments Urine Creatinine (test code = 2161-8) 117.00 63-166 [facility] ParkwayUrine Protein/Creatinine Znlpf4396-11-45 10:30:00* Test Item Value Reference Range Interpretation Comments Urine Protein/Creatinine Ratio (test code = 18639-2) 0.16 [facility] ParkwayUrine Xpbqifajeg6391-33-24 10:30:00* Test Item Value Reference Range Interpretation Comments Urine Creatinine (test code = 2161-8) 117.00 63-166 [facility] ParkwayUrine Protein/Creatinine Jmpsf2821-79-08 10:30:00* Test Item Value Reference Range Interpretation Comments Urine Protein/Creatinine Ratio (test code = 30654-8) 0.16 [facility] ParkwayDifferential Total Cells Counted 2018-09-28 07:48:00* Test Item Value Reference Range Interpretation Comments Differential Total Cells Counted (test code = Coral soriano Total Cells Counted) 100 [facility] ParkwayNeutrophils % (Manual)2018-09-28 07:48:00 * Test Item Value Reference Range Interpretation Comments Neutrophils % (Manual) (test code = 74621-2) 82 40-74 H [facility] ParkwayBand Neutrophils %2018-09-28 07:48:00* Test Item Value Reference Range Interpretation Comments Band Neutrophils % (test code = 764-1) 2 [facility] ParkwayLymphocytes % (Manual)2018-09-28 07:48:00 * Test Item Value Reference Range Interpretation Comments Lymphocytes % (Manual) (test code = 737-7) 6 19-48 L [facility] ParkwayMonocytes % (Manual)2018-09-28 07:48:00* Test Item Value Reference Range Interpretation Comments Monocytes % (Manual) (test code = 744-3) 7 3.4-9.0 [facility] ParkwayMetamyelocytes %2018-09-28 07:48:00* Test Item Value Reference Range Interpretation Comments Metamyelocytes % (test code = 740-1) 1 0-0 H [facility] ParkwayMyelocytes %2018-09-28 07:48:00* Test Item Value Reference Range Interpretation Comments Myelocytes % (test code = 749-2) 2 0-0 H [facility] ParkwayPlatelet Nemlidkg4942-65-71 07:48:00* Test Item Value Reference Range Interpretation Comments Platelet Estimate (test code = 15394-3) ADEQUATE [facility] ParkwayPlatelet Morphology Efkiavi6803-85-12 07:48:00* Test Item Value Reference Range Interpretation Comments Platelet Morphology Comment (test code = 32736-4) FEW GIANT [facility] ParkwayHypochromasia2019-01-09 07:48:00* Test Item Value Reference Range Interpretation Comments Hypochromasia (test code = 728-6) MODERATE [facility] ParkwayAnisocytosis2019-01-09 07:48:00* Test Item Value Reference Range Interpretation Comments Anisocytosis (test code = 702-1) MODERATE [facility] ParkwayRed Cell Morphology Ywfnheq5481-03-70 07:48:00* Test Item Value Reference Range Interpretation Comments Red Cell Morphology Comment (test code = 6742-1) NORMAL [facility] ParkwayBand Neutrophils %2018-09-28 07:48:00* Test Item Value Reference Range Interpretation Comments Band Neutrophils % (test code = 764-1) 2 [facility] ParkwayMetamyelocytes %2018-09-28 07:48:00* Test Item Value Reference Range Interpretation Comments Metamyelocytes % (test code = 740-1) 1 0-0 H [facility] ParkwayMyelocytes %2018-09-28 07:48:00* Test Item Value Reference Range Interpretation Comments Myelocytes % (test code = 749-2) 2 0-0 H [facility] ParkwayHypochromasia2019-01-09 07:48:00* Test Item Value Reference Range Interpretation Comments Hypochromasia (test code = 728-6) MODERATE [facility] ParkwayAnisocytosis2019-01-09 07:48:00* Test Item Value Reference Range Interpretation Comments Anisocytosis (test code = 702-1) MODERATE [facility] ParkwayBand Neutrophils %2018-09-28 07:48:00* Test Item Value Reference Range Interpretation Comments Band Neutrophils % (test code = 764-1) 2 [facility] ParkwayMetamyelocytes %2018-09-28 07:48:00* Test Item Value Reference Range Interpretation Comments Metamyelocytes % (test code = 740-1) 1 0-0 H [facility] ParkwayMyelocytes %2018-09-28 07:48:00* Test Item Value Reference Range Interpretation Comments Myelocytes % (test code = 749-2) 2 0-0 H [facility] Campuschromasia2019-01-09 07:48:00* Test Item Value Reference Range Interpretation Comments Hypochromasia (test code = 728-6) MODERATE [facility] ParkwayAnisocytosis2019-01-09 07:48:00* Test Item Value Reference Range Interpretation Comments Anisocytosis (test code = 702-1) MODERATE [facility] ParkwayUrine Random Total Lczsfak4936-74-04 07:10:00* Test Item Value Reference Range Interpretation Comments Urine Random Total Protein (test code = 2888-6) 19.5 1-14 H [facility] ParkwayUrine Random Total Dgotkph4110-25-02 07:10:00* Test Item Value Reference Range Interpretation Comments Urine Random Total Protein (test code = 2888-6) 19.5 1-14 H [facility] ParkwayUrine Random Total Rmtjclo0528-48-33 07:10:00* Test Item Value Reference Range Interpretation Comments Urine Random Total Protein (test code = 2888-6) 19.5 1-14 H [facility] ParkwayMagnesium Goywn0193-64-58 06:26:00* Test Item Value Reference Range Interpretation Comments Magnesium Level (test code = 25157-1) 1.4 1.3-2.1 [facility]odium Hjxkr5166-39-15 06:11:00* Test Item Value Reference Range Interpretation Comments Sodium Level (test code = 2951-2) 132 136-145 L [facility] ParkwayPotassium Clayu8136-97-30 06:11:00* Test Item Value Reference Range Interpretation Comments Potassium Level (test code = 2823-3) 4.5 3.5-5.1 [facility] ParkwayChloride Cwhbj8585-99-34 06:11:00* Test Item Value Reference Range Interpretation Comments Chloride Level (test code = 2075-0) 102 98-107 [facility] ParkwayCarbon Dioxide Oqigv2165-78-89 06:11:00* Test Item Value Reference Range Interpretation Comments Carbon Dioxide Level (test code = 2028-9) 21 22-29 L [facility] ParkwayAnion Zdq2988-80-84 06:11:00* Test Item Value Reference Range Interpretation Comments Anion Gap (test code = 34808-9) 13.5 8-16 [facility] ParkwayBlood Urea Hnwwwdzr5449-21-19 06:11:00* Test Item Value Reference Range Interpretation Comments Blood Urea Nitrogen (test code = 3094-0) 23 7-26 [facility] ParkwayCreatinine2019-01-09 06:11:00* Test Item Value Reference Range Interpretation Comments Creatinine (test code = 2160-0) 1.15 0.72-1.25 [facility] ParkwayBUN/Creatinine Iotyc5393-25-98 06:11:00* Test Item Value Reference Range Interpretation Comments BUN/Creatinine Ratio (test code = 3097-3) 20 6-25 [facility] ParkwayEstimat Glomerular Filtration Rate 2018-09-28 06:11:00* Test Item Value Reference Range Interpretation Comments Estimat Glomerular Filtration Rate (test code = 769624971) > 60 >60 Ranges were taken from the National Kidney Disease Education Program and the [place]irella count includes the [facility] Kidney Foundation literature.Reference ranges:60 or greater: Fhwbzd31-89 ( for 3 consecutive months): Chronic kidney disease 15 or less: Kidney failureWise Health Surgical Hospital at ParkwayGlucose Njfvx6709-16-21 06:11:00* Test Item Value Reference Range Interpretation Comments Glucose Level (test code = PFY0204) 222 74-118 H [facility] ParkwayCalcium Irxip3148-70-71 06:11:00* Test Item Value Reference Range Interpretation Comments Calcium Level (test code = 03133-3) 9.0 8.4-10.2 [facility] ParkwayTotal Yswnjluat6513-12-04 06:11:00* Test Item Value Reference Range Interpretation Comments Total Bilirubin (test code = 1975-2) 0.1 0.2-1.2 L [facility] ParkwayAspartate Amino Transf (AST/SGOT) 2018-09-28 06:11:00* Test Item Value Reference Range Interpretation Comments Aspartate Amino Transf (AST/SGOT) (test code = Aspartate Amino Transf (AST/SGOT)) 9 5-34 [facility] ParkwayAlanine Aminotransferase (ALT/SGPT) 2018-09-28 06:11:00* Test Item Value Reference Range Interpretation Comments Alanine Aminotransferase (ALT/SGPT) (test code = 1742-6) 7 0-55 [facility]wayTotal Crxlfkf4745-85-02 06:11:00* Test Item Value Reference Range Interpretation Comments Total Protein (test code = 2885-2) 5.4 6.5-8.1 L [facility] ParkwayAlbumin2019-01-09 06:11:00* Test Item Value Reference Range Interpretation Comments Albumin (test code = 1751-7) 2.5 3.5-5.0 L [facility] ParkwayGlobulin2019-01-09 06:11:00* Test Item Value Reference Range Interpretation Comments Globulin (test code = 51590-0) 2.9 2.3-3.5 [facility] ParkwayAlbumin/Globulin Esmqp2940-78-80 06:11:00 * Test Item Value Reference Range Interpretation Comments Albumin/Globulin Ratio (test code = 1759-0) 0.9 0.8-2.0 [facility] ParkwayAlkaline Fqenkhalcdx3623-12-03 06:11:00* Test Item Value Reference Range Interpretation Comments Alkaline Phosphatase (test code = 6768-6) 60 40-150 [facility] ParkwayWhite Blood Hhxor3916-10-54 06:01:00* Test Item Value Reference Range Interpretation Comments White Blood Count (test code = 6690-2) 14.33 4.8-10.8 H [facility] ParkwayRed Blood Apvty2136-17-04 06:01:00* Test Item Value Reference Range Interpretation Comments Red Blood Count (test code = 789-8) 3.14 4.3-5.7 L [facility] ParkwayHemoglobin2019-01-09 06:01:00* Test Item Value Reference Range Interpretation Comments Hemoglobin (test code = 19605-5) 9.0 14.0-18.0 L [facility] ParkwayHematocrit2019-01-09 06:01:00* Test Item Value Reference Range Interpretation Comments Hematocrit (test code = 4544-3) 27.7 38.2-49.6 L [facility] ParkwayMean Corpuscular Ymfall5591-98-37 06:01:00* Test Item Value Reference Range Interpretation Comments Mean Corpuscular Volume (test code = 787-2) 88.2 81-99 [facility] ParkwayMean Corpuscular Juntzkqrdq8234-50-08 06:01:00* Test Item Value Reference Range Interpretation Comments Mean Corpuscular Hemoglobin (test code = 785-6) 28.7 28-32 [facility] ParkwayMean Corpuscular Hemoglobin Concent 2018-09-28 06:01:00* Test Item Value Reference Range Interpretation Comments Mean Corpuscular Hemoglobin Concent (test code = 786-4) 32.5 31-35 [facility] ParkwayRed Cell Distribution Asdms3633-01-87 06:01:00* Test Item Value Reference Range Interpretation Comments Red Cell Distribution Width (test code = 34079-3) 19.9 11.7 -14.4 H [facility] ParkwayPlatelet Lespv8372-55-06 06:01:00* Test Item Value Reference Range Interpretation Comments Platelet Count (test code = 777-3) 375 140-360 H [facility] ParkwayNeutrophils (%) (Auto)2018-09-28 06:01:00 * Test Item Value Reference Range Interpretation Comments Neutrophils (%) (Auto) (test code = 24051-7) 83.2 38.7-80.0 H [facility] ParkwayLymphocytes (%) (Auto)2018-09-28 06:01:00 * Test Item Value Reference Range Interpretation Comments Lymphocytes (%) (Auto) (test code = 736-9) 9.4 18.0-39.1 L [facility] ParkwayMonocytes (%) (Auto)2018-09-28 06:01:00* Test Item Value Reference Range Interpretation Comments Monocytes (%) (Auto) (test code = 5905-5) 2.9 4.4-11.3 L [facility]wayEosinophils (%) (Auto)2018-09-28 06:01:00 * Test Item Value Reference Range Interpretation Comments Eosinophils (%) (Auto) (test code = 713-8) 0.0 0.0-6.0 [facility] ParkwayBasophils (%) (Auto)2018-09-28 06:01:00* Test Item Value Reference Range Interpretation Comments Basophils (%) (Auto) (test code = 706-2) 0.2 0.0-1.0 [facility] ParkwayIM GRANULOCYTES %2018-09-28 06:01:00* Test Item Value Reference Range Interpretation Comments IM GRANULOCYTES % (test code = IM GRANULOCYTES %) 4.3 0.0- 1.0 H [facility] ParkwayNeutrophils # (Auto)2018-09-28 06:01:00* Test Item Value Reference Range Interpretation Comments Neutrophils # (Auto) (test code = 751-8) 11.9 2.1-6.9 H [facility] ParkwayLymphocytes # (Auto)2018-09-28 06:01:00* Test Item Value Reference Range Interpretation Comments Lymphocytes # (Auto) (test code = 28475-3) 1.4 1.0-3.2 [facility] ParkwayMonocytes # (Auto)2018-09-28 06:01:00* Test Item Value Reference Range Interpretation Comments Monocytes # (Auto) (test code = 742-7) 0.4 0.2-0.8 [facility]wayEosinophils # (Auto)2018-09-28 06:01:00* Test Item Value Reference Range Interpretation Comments Eosinophils # (Auto) (test code = 711-2) 0.0 0.0-0.4 [facility] ParkwayBasophils # (Auto)2018-09-28 06:01:00* Test Item Value Reference Range Interpretation Comments Basophils # (Auto) (test code = 704-7) 0.0 0.0-0.1 [facility] ParkwayAbsolute Immature Granulocyte (auto 2018-09-28 06:01:00* Test Item Value Reference Range Interpretation Comments Absolute Immature Granulocyte (auto (gilberto t code = Absolute Immature Granulocyte (auto) 0.62 0-0.1 H [facility] ParkwayProthrombin Obtc4540-49-86 05:56:00* Test Item Value Reference Range Interpretation Comments Prothrombin Time (test code = 5902-2) 16.1 11.9-14.5 H [facility] ParkwayProthromb Time International Ratio 2018-09-28 05:56:00* Test Item Value Reference Range Interpretation Comments Prothromb Time International Ratio (test code = 6301-6) 1.19 Oral Anticoagulant Therapy INR Values:1. Low Intensity Therapy 1.5 - 2.02 . Moderate Intensity Therapy 2.0 - 3.03. High Intensity Therapy(1) 2.5 - 3. 54. High Intensity Therapy(2) 3.0 - 4.05. Panic Value INR > 5.0 [facility]2019-01-08 06:16:00* Test Item Value Reference Range Interpretation Comments Iron Level (test code = 2498-4) 35 65-175 L [facility]2019-01-08 06:16:00* Test Item Value Reference Range Interpretation Comments Iron Level (test code = 2498-4) 35 65-175 L [facility]2019-01-08 06:16:00* Test Item Value Reference Range Interpretation Comments Iron Level (test code = 2498-4) 35 65-175 L [facility]wayEosinophils % (Manual)2018-09-25 10:15:00 * Test Item Value Reference Range Interpretation Comments Eosinophils % (Manual) (test code = 714-6) 5 0-7 [facility]wayEosinophils % (Manual)2018-09-25 10:15:00 * Test Item Value Reference Range Interpretation Comments Eosinophils % (Manual) (test code = 714-6) 5 0-7 [facility]wayEosinophils % (Manual)2018-09-25 10:15:00 * Test Item Value Reference Range Interpretation Comments Eosinophils % (Manual) (test code = 714-6) 5 0-7 [facility] ParkwayUS RENAL RETROPERITONEAL TDKK7909-26-48 16:28:00 [place] [address] Patient Name: DIANE OREILLY MR #: [id number] : 1935 Age/Sex: 83/M Req #: [id number] Adm Physician: VIDYA BROWNLEE MD Ordered by: SANDY DALY MD, MD Report #: [id number] Location: [facility] Room/Bed: 293 Procedure: [id number] U S/US RENAL RETROPERITONEAL COMP Exam Date: [...] renal ultrasound ex am. Signed by: Dr. Nasir Laboy MD on 09/22/2018 4:30 PM Dictated By : NASIR LABOY MD 1630 Transcribed By: KIERA on 09/22/18 1630 COPY TO: SANDY DALY Creatine Kinase EH6931-84-77 06:49:00* Test Item Value Reference Range Interpretation Comments Creatine Kinase MB (test code = 66147-5) 3.00 0-5.0 [facility] ParkwayTroponin M7131-62-76 06:49:00* Test Item Value Reference Range Interpretation Comments Troponin I (test code = MEM6319) 0.097 0-0.300 [facility] ParkwayCreatine Yerjgo7582-81-08 06:47:00* Test Item Value Reference Range Interpretation Comments Creatine Kinase (test code = 2157-6) 365 30-200 H [facility] ParkwayLipase2019-01-02 12:35:00* Test Item Value Reference Range Interpretation Comments Lipase (test code = 3040-3) [facility] ParkwayLipase2019-01-02 12:35:00* Test Item Value Reference Range Interpretation Comments Lipase (test code = 3040-3) [facility] ParkwayLipase2019-01-02 12:35:00* Test Item Value Reference Range Interpretation Comments Lipase (test code = 3040-3) [facility] ParkwayCHEST SINGLE (PORTABLE)2018-09-21 12:34:00 [facility] [address] [place] [address] Patient Name: DIANE OREILLY MR #: [id number] : 1935 Age/Sex: 83/M Req #: [id number] Adm Physician: Ordered by: NATALIIA DAMON NP Report #: [id number] Location: ER Room/Bed: Procedure: [id number] DX/CHEST SINGLE (PORTABLE) Exam Date: 09/21/18 Exam [...] COPY TO: NATALIIA DAMON NP B-Type Natriuretic Esfplff0281-26-87 12:33:00* Test Item Value Reference Range Interpretation Comments B-Type Natriuretic Peptide (test code = 07655-9) 95.1 0-100 [facility] ParkwayActivated Partial Thromboplast Time 2018-09-21 12:09:00* Test Item Value Reference Range Interpretation Comments Activated Partial Thromboplast Time (test code = 42877-7) 61.9 23.8-35.5 H [facility] ParkwayUrine TPX1029-46-07 12:09:00* Test Item Value Reference Range Interpretation Comments Urine WBC (test code = 5821-4) NONE 0-5 [facility] ParkwayUrine FZL1576-76-54 12:09:00* Test Item Value Reference Range Interpretation Comments Urine RBC (test code = 01624-9) NONE 0-5 [facility] ParkwayUrine Ourfnghx4157-38-09 12:09:00* Test Item Value Reference Range Interpretation Comments Urine Bacteria (test code = 57750-3) NONE NONE [facility] ParkwayUrine Epithelial Hostw6147-70-06 12:09:00 * Test Item Value Reference Range Interpretation Comments Urine Epithelial Cells (test code = 02977-0) RARE NONE [facility] ParkwayUrine Ypivz7045-37-55 12:06:00* Test Item Value Reference Range Interpretation Comments Urine Color (test code = 5778-6) ORANGE YELLOW H [facility] ParkwayUrine Ufauoti7172-23-58 12:06:00* Test Item Value Reference Range Interpretation Comments Urine Clarity (test code = 37689-2) SL CLOUDY CLEAR H [facility] ParkwayUrine Specific Fuaivnc7916-89-06 12:06:00 * Test Item Value Reference Range Interpretation Comments Urine Specific [place] (test code = 5811-5) 1.025 1.010-1.02 5 [facility] ParkwayUrine cG0353-50-75 12:06:00* Test Item Value Reference Range Interpretation Comments Urine pH (test code = 63655-5) 5 5-7 [facility] ParkwayUrine Leukocyte Higsmrwm7117-36-34 12:06:00* Test Item Value Reference Range Interpretation Comments Urine Leukocyte Esterase (test code = 5799-2) NEGATIVE NEGATIVE [facility] Jpobkcp8736-63-32 12:06:00* Test Item Value Reference Range Interpretation Comments Urine Nitrite (test code = 71292-2) NEGATIVE NEGATIVE [facility] Qiobghe8687-01-24 12:06:00* Test Item Value Reference Range Interpretation Comments Urine Protein (test code = 5804-0) NEGATIVE NEGATIVE [facility] ParkwayUrine Glucose (UA)2018-09-21 12:06:00* Test Item Value Reference Range Interpretation Comments Urine Glucose (UA) (test code = 2349-9) 1+ NEGATIVE H [facility] Wgcnwck0106-14-14 12:06:00* Test Item Value Reference Range Interpretation Comments Urine Ketones (test code = 06426-5) NEGATIVE NEGATIVE [facility] Krltciebkwyi3813-34-29 12:06:00* Test Item Value Reference Range Interpretation Comments Urine Urobilinogen (test code = 89629-7) 0.2 0.2-1 [facility] ParkwayUrine Ilngebrae2371-99-33 12:06:00* Test Item Value Reference Range Interpretation Comments Urine Bilirubin (test code = 1978-6) NEGATIVE NEGATIVE [facility] Arplp3219-39-88 12:06:00* Test Item Value Reference Range Interpretation Comments Urine Blood (test code = 14127-5) NEGATIVE NEGATIVE [facility] ParkwayMicrocytosis2018-11-14 08:13:00* Test Item Value Reference Range Interpretation Comments Microcytosis (test code = 741-9) SLIGHT [facility] ParkwayOvalocytes2018-11-14 08:13:00* Test Item Value Reference Range Interpretation Comments Ovalocytes (test code = 774-0) FEW [facility] ParkwayMicrocytosis2018-11-14 08:13:00* Test Item Value Reference Range Interpretation Comments Microcytosis (test code = 741-9) SLIGHT [facility] ParkwayOvalocytes2018-11-14 08:13:00* Test Item Value Reference Range Interpretation Comments Ovalocytes (test code = 774-0) FEW [facility] ParkwayMicrocytosis2018-11-14 08:13:00* Test Item Value Reference Range Interpretation Comments Microcytosis (test code = 741-9) SLIGHT [facility] ParkwayOvalocytes2018-11-14 08:13:00* Test Item Value Reference Range Interpretation Comments Ovalocytes (test code = 774-0) [facility] L[facility] VENT EVVLHZYZR3100-80-57 15:53:00 [facility] [address] [address] Patient Name: DIANE OREILLY MR #: [id number] : 1935 Age/Sex: 82/M Req #: [id number] Adm Physician: VIDYA BROWNLEE MD Ordered by: LEÓN SMITH MD Report #: [id number] Location: [facility] Room/Bed: [facility] Procedure: 1110-000 1 NM/VQ LUNG SCAN VENT [...] of obstructive lung disease. Signed by: Dr. Soraida Colbert M.D. on 2017 3:54 PM Dictated By: SORAIDA COLBERT MD 3708 Transcribed By: KIERA on 08/01/18 6694 COPY TO: LEÓN SMITH MD Arterial Blood fS9716-97-03 13:02:00* Test Item Value Reference Range Interpretation Comments Arterial Blood pH (test code = 2744-1) 7.44 7.31-7.41 H [facility] ParkwayArterial Blood Partial Pressure CO2 2018-07-30 13:02:00* Test Item Value Reference Range Interpretation Comments Arterial Blood Partial Pressure CO2 (test code = 2019-04) 28 41-51 L [facility] ParkwayArterial Blood Partial Pressure O2 2018-07-30 13:02:00* Test Item Value Reference Range Interpretation Comments Arterial Blood Partial Pressure O2 (test code = 2019-04) 136 80-105 H [facility] ParkwayArterial Blood HIH87373-29-94 13:02:00* Test Item Value Reference Range Interpretation Comments Arterial Blood HCO3 (test code = 1960-4) 20 23-28 L [facility] ParkwayArterial Blood Base Nyjhuf8589-41-68 13:02:00* Test Item Value Reference Range Interpretation Comments Arterial Blood Base Excess (test code = 1925-7) -5.0 -2-3 L [facility] ParkwayArterial Blood Oxygen Saturation 2018-07-30 13:02:00* Test Item Value Reference Range Interpretation Comments Arterial Blood Oxygen Saturation (test code = 2708-6) 99.0 95-98 H [facility] ParkwayFiO22018-11-10 13:02:00* Test Item Value Reference Range Interpretation Comments FiO2 (test code = FiO2) 99 [facility] 2018-07-30 13:02:00* Test Item Value Reference Range Interpretation Comments Arterial Blood pH (test code = 2744-1) 7.44 7.31-7.41 H [facility] ParkwayArterial Blood Partial Pressure CO2 2018-07-30 13:02:00* Test Item Value Reference Range Interpretation Comments Arterial Blood Partial Pressure CO2 (test code = 2018-8) 28 41-51 L [facility] ParkwayArterial Blood Partial Pressure O2 2018-07-30 13:02:00* Test Item Value Reference Range Interpretation Comments Arterial Blood Partial Pressure O2 (test code = 2019-8) 136 80-105 H [facility] ParkwayArterial Blood CWJ35444-09-75 13:02:00* Test Item Value Reference Range Interpretation Comments Arterial Blood HCO3 (test code = 1960-4) 20 23-28 L [facility] ParkwayArterial Blood Base Fmcprt1940-96-33 13:02:00* Test Item Value Reference Range Interpretation Comments Arterial Blood Base Excess (test code = 1925-7) -5.0 -2-3 L [facility] ParkwayArterial Blood Oxygen Saturation 2018-07-30 13:02:00* Test Item Value Reference Range Interpretation Comments Arterial Blood Oxygen Saturation (test code = 2708-6) 99.0 95-98 H [facility] ParkwayFiO22018-11-10 13:02:00* Test Item Value Reference Range Interpretation Comments FiO2 (test code = FiO2) 99 Patient on 3lpm o2[facility] ParkwayArterial Blood pH 2018-07-30 13:02:00* Test Item Value Reference Range Interpretation Comments Arterial Blood pH (test code = 2744-1) 7.44 7.31-7.41 H [facility] ParkwayArterial Blood Partial Pressure CO2 2018-07-30 13:02:00* Test Item Value Reference Range Interpretation Comments Arterial Blood Partial Pressure CO2 (test code = 2019-04) 28 41-51 L [facility] ParkwayArterial Blood Partial Pressure O2 2018-07-30 13:02:00* Test Item Value Reference Range Interpretation Comments Arterial Blood Partial Pressure O2 (test code = 2019-04) 136 80-105 H [facility] ParkwayArterial Blood GHX02494-96-86 13:02:00* Test Item Value Reference Range Interpretation Comments Arterial Blood HCO3 (test code = 1960-4) 20 23-28 L [facility] ParkwayArterial Blood Base Bwrdhc6879-51-04 13:02:00* Test Item Value Reference Range Interpretation Comments Arterial Blood Base Excess (test code = 1925-7) -5.0 -2-3 L [facility] ParkwayArterial Blood Oxygen Saturation 2018-07-30 13:02:00* Test Item Value Reference Range Interpretation Comments Arterial Blood Oxygen Saturation (test code = 2708-6) 99.0 95-98 H [facility] ParkwayFiO22018-11-10 13:02:00* Test Item Value Reference Range Interpretation Comments FiO2 (test code = FiO2) 99 Patient on 3lpm o2[facility] ParkwayCHEST SINGLE (PORTABLE) 2018-07-30 10:24:00 [place] [address] Patient Name: DIANE OREILLY MR #: [id number] : 1935 Age/Sex: 82/M Req #: [id number] Adm Physician: VIDYA BROWNLEE MD Ordered by: ROBERTO FINCH MD Report #: [id number] Location: MED/SURG3 Room/Bed: [facility] Procedure: [id number] D X/CHEST SINGLE (PORTABLE) Exam Date: Exam [...] suggest mild vascular congestion. Signed by: Dr. Nneka Hung MD on 07/30/2018 10:24 AM Dictated By: ARDEN HUNG MD Elec tronically Signed By: ARDEN HUNG MD on 07/30/18 1024 Transcribed By: LILLIAM Gutierres on 07/30/18 1024 COPY TO: ROBERTO FINCH MD Reactive Pfehtildgiv0570-68-36 07:29:00* Test Item Value Reference Range Interpretation Comments Reactive Lymphocytes (test code = 00167-0) 2 [facility] ParkwayBlood Czbmnvs2095-08-95 19:30:00* Test Item Value Reference Range Interpretation Comments Blood Culture (test code = 69444493) NO GROWTH AFTER 5 DAYS, FINAL REPORT [facility] Eqxbwlv3204-41-40 08:07:00* Test Item Value Reference Range Interpretation Comments Wound Culture (test code = 6462-6) Organism: STAPHYLOCOCCUS AUREUS- MRSA [facility] Xccwqyp2186-76-37 08:07:00* Test Item Value Reference Range Interpretation Comments Wound Culture (test code = 6462-6) Organism: STAPHYLOCOCCUS AUREUS- MRSA [facility] ParkwayWound Lrwnzva9421-77-76 08:07:00* Test Item Value Reference Range Interpretation Comments Wound Culture (test code = 6462-6) Organism: STAPHYLOCOCCUS AUREUS- MRSA [facility] ParkwayCT CHEST CR2020-59-47 13:15:00 [facility] [address] [address] Patient Name: DIANE OREILLY MR #: [id number] : 1935 Age/Sex: 82/M Req #: [id number] Adm Physician: VIDYA BROWNLEE MD Ordered by: NATI WELCH MD Report #: [id number] Location: ICU Room/Bed: [place] [address] Procedure: [id number] CT/CT CHEST WO Exam Date: 07/24/18 Exam Time: 1300 REPORT STATUS: Signed EXAM: CT Ch est WITHOUT contrast INDICATION: Shortness of breath. sob [id number] COMPARISON: CT abdomen and pelvis 07/23/2018 [...] spine. SOFT TISSUES: Unremarkable. IMPRESSION: No ac [place] abnormalities in the chest. Signed by: DR. Azra Gayle MD on 07/24/20 18 1:24 PM Dictated By: AZAR GAYLE MD 1324 Transcribed By: KIERA on 07/24/18 1324 [employer] Y TO: NATI WELCH MD Total Iron Binding Anrapaub9198-04-53 05:34:00 * Test Item Value Reference Range Interpretation Comments Total Iron Binding Capacity (test code = 2500-7) 260 261-4 78 L [facility] ParkwayPercent Iron Fuogyfmjjk0814-72-40 05:34:00* Test Item Value Reference Range Interpretation Comments Percent Iron Saturation (test code = 2502-3) 10 15-50 L [facility] ParkwayTransferrin2018-11-04 05:34:00* Test Item Value Reference Range Interpretation Comments Transferrin (test code = 3034-6) 186 174-364 [facility] ParkwayTotal Iron Binding Nuxymbgz1126-58-38 05:34:00* Test Item Value Reference Range Interpretation Comments Total Iron Binding Capacity (test code = 2500-7) 260 261-4 78 L [facility] ParkwayPercent Iron Jygavjdcre5830-62-37 05:34:00* Test Item Value Reference Range Interpretation Comments Percent Iron Saturation (test code = 2502-3) 10 15-50 L [facility] ParkwayTransferrin2018-11-04 05:34:00* Test Item Value Reference Range Interpretation Comments Transferrin (test code = 3034-6) 186 174-364 [facility] ParkwayTotal Iron Binding Fgxigiov6802-41-37 05:34:00* Test Item Value Reference Range Interpretation Comments Total Iron Binding Capacity (test code = 2500-7) 260 261-4 78 L [facility] ParkwayPercent Iron Efutzsebvj7594-33-53 05:34:00* Test Item Value Reference Range Interpretation Comments Percent Iron Saturation (test code = 2502-3) 10 15-50 L [facility] ParkwayTransferrin2018-11-04 05:34:00* Test Item Value Reference Range Interpretation Comments Transferrin (test code = 3034-6) 186 174-364 [facility] ParkwayVQ LUNG SCAN VENT IFTUMREIA9849-03-64 00:58:00 [place] [address] Patient Name: DIANE OREILLY MR #: [id number] : 1935 Age/Sex: 82/M Req #: [id number] [facility] Physician: VIDYA BROWNLEE MD Ordered by: NILE ALMANZAR MD Report #: [id number] Location: ICU Room/Bed: [place] [address] Procedure: [id number] NM/VQ LUNG SCAN VENT PERFUSION Exam Date: [...] COPY TO: NILE ALMANZAR MD CT ABDOMEN/PELVIS ZX7387-92-94 21:14:00 [place] [address] Patient Name: DIANE OREILLY MR #: [id number] : 1935 Age/Sex: 82/M Req #: [id number] Adm Physician: Ordered by: NILE ALMANZAR MD Report #: [id number] Location: ER Room/Bed: Procedure: [id number] CT/CT ABDOMEN/PELVIS WO Exam Date: Exam Time: [...] COPY TO: NILE ALMANZAR MD Lactic Acid Cfije7214-21-35 20:02:00* Test Item Value Reference Range Interpretation Comments Lactic Acid Level (test code = Lactic Acid Level) 27.6 4.5- 19.8 HH Results called to Odilia/RN at 2000 on 07/23/18 by Robin Dumont. RB [place].[facility] ParkwayLactic Acid Acrxa0928-05-16 20:02:00* Test Item Value Reference Range Interpretation Comments Lactic Acid Level (test code = Lactic Acid Level) 27.6 4.5- 19.8 HH Results called to Odilia/KEISHA at 2000 on 07/23/18 by Robin Dumont. [place].[facility] ParkwayLactic Acid Wrsss6764-52-00 20:02:00* Test Item Value Reference Range Interpretation Comments Lactic Acid Level (test code = Lactic Acid Level) 27.6 4.5- 19.8 HH Results called to Odilia/KEISHA at 2000 on 07/23/18 by Robin Dumont. RB [place].[facility] ParkwayD-Dimer Quantitative (PE/DVT)2018-07-23 19:39:00* Test Item Value Reference Range Interpretation Comments D-Dimer Quantitative (PE/DVT) (test code = 53507-7) 2.58 0. 00-0.45 H [facility] ParkwayD-Dimer Quantitative (PE/DVT)2018-07-23 19:39:00* Test Item Value Reference Range Interpretation Comments D-Dimer Quantitative (PE/DVT) (test code = 47578-0) 2.58 0. 00-0.45 H [facility] ParkwayD-Dimer Quantitative (PE/DVT)2018-07-23 19:39:00* Test Item Value Reference Range Interpretation Comments D-Dimer Quantitative (PE/DVT) (test code = 13750-4) 2.58 0. 00-0.45 [facility]2018-07-23 19:24:00 [place] [address] Patient Name: DIANE OREILLY MR #: [id number] : 1935 Age/Sex: 82/M Req #: [id number] Adm Physician: Ordered by: ANTHONY PULLIAM MD Report #: [id number] Location: ER Room/Bed: Procedure: [id number] DX /CHEST SINGLE (PORTABLE) Exam Date: 07/23/18 [...] COPY TO: ANTHONY PULLIAM MD CHEST 2 [id number] 14:17:00 [place] [address] Patient Name: DIANE OREILLY MR #: [id number] : 1935 Age/Sex: 82/M Req #: [id number] Adm Physician: Ordered by: VINH VELA MD Report #: [id number] Location: OR Room/Bed: Procedure: [id number] DX/CHEST 2 VIEWS Exam Da te: Exam [...] MD on 07/01/181418 Transcribed By: KIERA on 07/01/18 141 COPY TO: VINH VELA MD CT ABDOMEN/PELVIS W 2018-05-31 12:23:00 [place] [address] Patient Name: DIANE OREILLY MR #: [id number] : 1935 Age/Sex: 82/M Req #: [id number] Adm Physician: Ordered by: NORBERTO FUCHS MD Report #: [id number] Location: CT Room/Bed: Procedure: [id number] CT/CT ABDOMEN/PELVIS W Exam Date: 05/31/18 Exam [...] 12:42 PM Dictated By: MARIO CALVERT MD 1242 Transcribed By: KIERA on 05/31/18 1242 COPY TO: NORBERTO FUCHS MD Prostate Specific [id number] 06:42:00* Test Item Value Reference Range Interpretation Comments Prostate Specific Antigen (test code = 2857-1) 4.2 0.0-4.0 H Rashida ECLIA methodology.According to the [employer], Serum PSAshould decrease and remain at undetectable levels afterradical prostatectomy. The AUA defines biochemicalrecurrence as an initial PSA value 0.2 ng/mL or grea terfollowed by a subsequent confirmatory PSA value 0.2 ng/mLor greater. Values o btained with different assay methods orkits cannot be used interchangeably. Resu lts cannot beinterpreted as absolute evidence of the presence or absenceof malig nant disease.Performed at: [facility] [id number] Director: Sher Erwin MD, Phone: [phone] ParkwayProstate Specific [id number] 06:42:00* Test Item Value Reference Range Interpretation Comments Prostate Specific Antigen (test code = 2857-1) 4.2 0.0-4.0 H Rashida ECLIA methodology.According to the [employer], Serum PSAshould decrease and remain [...] or absenceof malig nant disease.Performed at: - [facility] [address] [place], [place] [id number] Director: Sher Erwin MD, Phone: [phone] Health [facility] at ParkwayTriglycerides [id number] 14:40:00* Test Item Value Reference Range Interpretation Comments Triglycerides Level (test code = 2571-8) 384 0-149 H [facility]wayCholesterol [id number] 14:40:00* Test Item Value Reference Range Interpretation Comments Cholesterol Level (test code = 2093-3) 149 0-199 Less than 200 mg/dL Low Acym692 - 239 mg/dL Borderline Vcut312 m g/dl and greater High Risk [facility] ParkwayLDL Wqakutubjxj4312-32-03 14:40:00* Test Item Value Reference Range Interpretation Comments LDL Cholesterol (test code = 2089-1) 42 60-130 L [facility] ParkwayHDL Vzivjpkrepe7217-26-13 14:40:00* Test Item Value Reference Range Interpretation Comments HDL Cholesterol (test code = 2085-9) 30 40-60 L [facility] ParkwayCholesterol/HDL Zeibp4378-40-10 14:40:00 * Test Item Value Reference Range Interpretation Comments Cholesterol/HDL Ratio (test code = 9830-1) 5.0 3.9-4.7 H [facility]wayTriglycerides Dwkhs1545-86-91 14:40:00* Test Item Value Reference Range Interpretation Comments Triglycerides Level (test code = 2571-8) 384 0-149 H [facility]wayCh[facility] [id number] 14:40:00* Test Item Value Reference Range Interpretation Comments Cholesterol Level (test code = 2093-3) 149 0-199 Less than 200 mg/dL Low Ktlf591 - 239 mg/dL Borderline Pobq179 m g/dl and greater High Risk [facility] Hbfxiwshhbj3424-88-82 14:40:00* Test Item Value Reference Range Interpretation Comments LDL Cholesterol (test code = 2089-1) 42 60-130 L [facility] ParkwayHDL Iktddxolvua6198-57-18 14:40:00* Test Item Value Reference Range Interpretation Comments HDL Cholesterol (test code = 2085-9) 30 40-60 L [facility]way[facility]/HDL Ohmvl7410-32-84 14:40:00 * Test Item Value Reference Range Interpretation Comments Cholesterol/HDL Ratio (test code = 9830-1) 5.0 3.9-4.7 H [facility]
--- NOTE | 2020-05-04 17:10 | NUR ---
Pt received from ER at this time. Pt is aox3 and able to verbalize needs. Denies any pain at this time. Pt has IV to right AC and patent. 0 s/s of acute distress noted. Breaths are even and unlabored on room air.
[2020-05-04 17:12] VITALS: BP 180/79
[2020-05-04 17:22] VITALS: BP 182/83
[2020-05-04 17:30] VITALS: BP 182/83
[2020-05-04] MEDS ORDERED: WARFARIN SOD 5 MG TAB PO SCH (18:00)
[2020-05-04] MEDS: SPIRONOLACTONE 25 MG TAB PO SCH (18:17)
[2020-05-04] MEDS: FUROSEMIDE INJ 10 MG/ML 4 ML VIAL IV SCH (18:17)
[2020-05-04] MEDS: METOPROLOL SUCCINATE 50 MG TAB XL PO SCH (18:17)
[2020-05-04] MEDS: INSULIN LISPRO 100 UNIT/1 ML 3ML VIAL SQ SCH ×2 (18:19→21:09)
[2020-05-04 20:00] VITALS: BP 173/73
--- NOTE | 2020-05-04 20:32 | Consultation ---
DATE OF CONSULTATION: Pulmonary Consultation The patient of Dr. Peralta. 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 Supplemental oxygen had been ordered for him, but apparently not approved by his insurer. He has had progressive swelling and shortness of breath for several months. He has had difficulty sleeping. He was admitted with profound shortness of breath and edema. HOME MEDICATIONS: Have included prednisone p.r.n., potassium, Xarelto in the past, now Coumadin, Advair, Lipitor, Protonix, allopurinol, Aldactone, Amaryl, Lasix, Myrbetriq, and insulin. Denies fever and chills. He denies COVID risk factors. He does have a history of insulin-dependent diabetes. PHYSICAL EXAMINATION: VITAL SIGNS: Blood pressure 180/83, pulse 70, temperature 97.6, and O2 saturation 98% on 2 L. Weight 260 pounds. HEAD: Normocephalic and atraumatic. NECK: Trachea midline. LUNGS: Diminished breath sounds. HEART: Regular rhythm. ABDOMEN: Nontender. EXTREMITIES: Quite edematous. Chest x-ray again reveals the elevated right hemidiaphragm, suggestion of interstitial edema, less likely atypical pneumonia. COVID serology is pending. We will check serum iron, attempt to obtain oxygen for the patient as an outpatient. Resume home medications. The patient's lactic acid was elevated at 27.6. Thank you for this kind referral. Rancho Pace MD DS/MODL /[id number]
[2020-05-04 21:00] VITALS: BP 173/73
[2020-05-04] MEDS ORDERED: FUROSEMIDE 40 MG TAB PO SCH (21:00)
[2020-05-04] MEDS: ATORVASTATIN 10 MG TAB PO SCH (21:19)
[2020-05-04] MEDS: DOCUSATE SODIUM 100 MG CAP PO SCH (21:19)
[2020-05-04] MEDS: PANTOPRAZOLE SOD 40 MG TABEC PO SCH (21:19)
[2020-05-04 22:13] LABS: CREATINE KINASE MB 2.5 ng/mL (0-5.0)
[2020-05-05] VITALS (8 sets, daily range): BP systolic 133–165; BP diastolic 61–101
[2020-05-05] MEDS: SALMETEROL/FLUTICASONE 250/50 INH SCH ×3 (06:38→20:00)
[2020-05-05] MEDS: ALBUTEROL SULFATE HFA 8GM INHALATION AEROSOL INH PRN (06:39)
[2020-05-05] MEDS: IPRATROPIUM/ALBUTEROL SULFATE 4 GM INH INH PRN ×2 (06:39→20:00)
[2020-05-05 07:57] LABS: BASOPHILS # (AUTO) 0.1 (0.0-0.1); BASOPHILS % 0.4 % (0.0-1.0); EOSINOPHILS % 0.1 % (0.0-6.0); HEMATOCRIT 34.7 % (38.2-49.6); HEMOGLOBIN 10.5 g/dL (14.0-18.0); LYMPHOCYTES # (AUTO) 1.2 (1.0-3.2); LYMPHOCYTES % 9.3 % (18.0-39.1); MEAN CORPUSCULAR HEMOGLOBIN 24.8 pg (28-32); MEAN CORPUSCULAR HGB CONC 30.3 g/dL (31-35); MONOCYTES # (AUTO) 0.9 (0.2-0.8); MONOCYTES % 6.7 % (4.4-11.3); NEUTROPHILS % 82.3 % (38.7-80.0); PLATELET COUNT 245 x10e3/uL (140-360); RED BLOOD COUNT 4.23 x10e6/uL (4.3-5.7); RED CELL DISTRIBUTION WIDTH 17.8 % (11.7-14.4)
[2020-05-05 08:08] LABS: INR 0.98; PROTHROMBIN TIME 13.5 seconds (11.9-14.5)
[2020-05-05 08:17] LABS: ALBUMIN 3.3 g/dL (3.5-5.0); ALBUMIN/GLOBULIN RATIO 0.9 (0.8-2.0); ANION GAP 16.2 mmol/L (8-16); CALCIUM 9.3 mg/dL (8.4-10.2); CREATININE, SERUM 1.5 mg/dL (0.72-1.25); POTASSIUM 4.2 mmol/L (3.5-5.1)
[2020-05-05] MEDS: DOCUSATE SODIUM 100 MG CAP PO SCH ×2 (08:21→21:07)
[2020-05-05] MEDS: METOPROLOL SUCCINATE 50 MG TAB XL PO SCH ×2 (08:21→16:09)
[2020-05-05] MEDS: CLOPIDOGREL BISULFATE 75 MG TAB PO SCH (08:21)
[2020-05-05] MEDS: ALLOPURINOL 300 MG TAB PO SCH (08:21)
[2020-05-05] MEDS: METHYLPREDNISOLONE SOD SUCC 40 MG/ML VIAL 1ML IV SCH ×3 (08:21→21:07)
[2020-05-05] MEDS: SPIRONOLACTONE 25 MG TAB PO SCH ×2 (08:21→16:09)
[2020-05-05] MEDS: AZITHROMYCIN 250 MG TAB PO SCH (08:21)
[2020-05-05] MEDS: FUROSEMIDE INJ 10 MG/ML 4 ML VIAL IV SCH ×2 (08:21→16:09)
[2020-05-05] MEDS: INSULIN LISPRO 100 UNIT/1 ML 3ML VIAL SQ SCH ×4 (08:33→21:07)
[2020-05-05 08:39] LABS: % IRON SATURATION 7 % (15-50); IRON 25 ug/dL (65-175); TOTAL IRON BINDING CAPACITY 381 ug/dL (261-478); TRANSFERRIN 272 mg/dL (174-364)
[2020-05-05] MEDS ORDERED: FUROSEMIDE 40 MG TAB PO SCH (09:00)
[2020-05-05] MEDS: CEFTRIAXONE SOD 1 GM/NS 50 ML 50 ML IV SCH (09:30)
[2020-05-05 09:34] LABS: CLARITY,URINE CLEAR (CLEAR); COLOR,URINE YELLOW (YELLOW)
[2020-05-05 09:35] LABS: LEUKOCYTE ESTERASE ,URINE NEGATIVE (NEGATIVE); NITRITE,URINE NEGATIVE (NEGATIVE); PROTEIN,URINE DIPSTICK >=300 (NEGATIVE)
[2020-05-05 09:36] LABS: BILIRUBIN,URINE NEGATIVE (NEGATIVE); KETONES,URINE NEGATIVE (NEGATIVE); URINE UROBILINOGEN 0.2 mg/dL (0.2 - 1)
[2020-05-05 09:37] LABS: BACTERIA,URINE RARE /HPF; EPITHELIAL CELLS,URINE FEW /LPF
[2020-05-05] MEDS: RIVAROXABAN 15 MG TABLET PO SCH (12:08)
--- NOTE | 2020-05-05 13:24 | Consultation ---
DATE OF CONSULTATION: Cardiology Consultation REASON FOR CONSULT: Shortness of breath. CONSULTING PHYSICIAN: Kaden Peralta MD HISTORY OF PRESENT ILLNESS: Mr. Castañeda is an 84-year-old male, who is well known to us with a pertinent past medical history of coronary artery disease, aortic stenosis, status post TAVR, atrial fibrillation, hypertension, diabetes mellitus, and hypercholesteremia, he reports he came into the ER due to worsening shortness of breath. Over the last few weeks, we saw this patient in our clinic approximately 2 weeks ago when he had an ultrasound repeated due to the same complaint of shortness of breath and he was noted to have an ejection fraction of 55%. He also had a recent left heart catheterization in August 2019 with a patent left main stent and otherwise moderate CAD noted at that time. He reports over the last two weeks he is unable to walk more than 25-50 feet without having to stop due to worsening shortness of breath and over the last two weeks also he has noted worsening swelling and fatigue and overall weakness. At the present time, he denies any fever, chills, chest pain, palpitations, gross bleeding, melena, hematuria, claudication. REVIEW OF SYSTEMS: Negative except as mentioned above. PAST MEDICAL HISTORY: As stated above coronary artery disease, hypertension, diabetes mellitus, aortic valve replacement, and hypercholesteremia. PAST SURGICAL HISTORY: Transcatheter aortic valve replacement in October 2016, carpal tunnel surgery, back surgery, pacemaker placement in 2017 secondary to atrial fibrillation. SOCIAL HISTORY: He is a and a nonsmoker. PHYSICAL EXAMINATION: VITAL SIGNS: Temperature 97.5, pulse 70, respiratory rate 20, blood pressure 144/67, oxygen saturation 100% on room air. GENERAL: Alert and oriented x3. Resting on the side of the bed with dyspnea on exertion noted with speaking and also movement. NECK: Supple. No JVD noted. CARDIOVASCULAR: Regular rate and rhythm. Systolic murmur present. Normal S1, S2. LUNGS: Diminished breath sounds posterior lower lobes otherwise clear to auscultation. No wheezing. No rhonchi or crackles. ABDOMEN: Rounded, soft, nontender. EXTREMITIES: Lower extremity unable to palpate pulses. 2+ pitting edema noted. CARDIOVASCULAR MEDICATIONS: Spironolactone 25 mg p.o. b.i.d., metoprolol succinate 50 mg p.o. b.i.d., Plavix 75 p.o. daily, Lasix 40 mg IV b.i.d., atorvastatin 10 mg p.o. daily, warfarin 10 mg p.o. daily. LABORATORY DATA: WBC 13.35, hemoglobin 10.5, hematocrit 34.7, platelets 275. Sodium 135, potassium 4.2, BUN 26, creatinine 1.50, glucose 286, creatine kinase 130, CK-MB 3, troponin 0.015. IMAGING: Chest x-ray with mild cardiomegaly with prominent interstitial lung markings was consistent with interstitial pulmonary edema noted. TELEMETRY: Ventricularly paced rhythm. IMPRESSION: 1. Acute on chronic kidney disease. 2. Aortic valve replacement in 2017. 3. Coronary artery disease, status post left main stent that was noted to be patent in August 2019 and moderate coronary artery disease noted at that time. 4. Interstitial pulmonary edema. 5. Diastolic heart failure. 6. Hypertension. RECOMMENDATIONS: Continue IV diuretics at this time. No additional cardiac evaluation needed at this time. We will continue to monitor patient on telemetry and continue to monitor improvement of condition. Activity as tolerated. Thank you for this consultation and allowing us to participate in this patient's care. Dictated by Sowmya Vazquez NP MD DELVIN Benz/DILLAN /[id number]
--- NOTE | 2020-05-05 15:14 | Progress Note ---
DATE: SUBJECTIVE: The patient is having shortness of breath, very well known to our service. 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 The patient is on BiPAP at home. PHYSICAL EXAMINATION: VITAL SIGNS: Temperature 97.5, pulse of 77, blood pressure 144/67, respiratory rate of 18 to 20, O2 saturation 99% on 2 L. CHEST: Decreased air entry. HEART: S1, S2 audible. ABDOMEN: Soft. EXTREMITIES: No pedal edema. NEUROLOGIC: He is awake and alert. LABORATORY DATA: White count of 13,000, hemoglobin 10.5. Chemistry reviewed. Creatinine is 1.5. ASSESSMENT AND PLAN: Congestive heart failure, asthma and obstructive sleep apnea. The patient will be continued on steroids, nebulizer treatment and diuretics, gradually improving. Coronavirus PCR is still pending. Home oxygen arrangement was done in the office, however, he never gets approved. He is still saturating 96% on room air. MD XAVI Sanchez/DILLAN /[id number]
[2020-05-05 17:28] LABS: CREATINE KINASE MB 3.4 ng/mL (0-5.0)
--- NOTE | 2020-05-05 19:09 | NUR ---
Report given to oncoming nurse of patient's status. Sitting on chair. No s/s of acute distress noted. Call light within reach
[2020-05-05] MEDS: PANTOPRAZOLE SOD 40 MG TABEC PO SCH (21:07)
[2020-05-05] MEDS: ATORVASTATIN 10 MG TAB PO SCH (21:07)
[2020-05-06] VITALS (9 sets, daily range): BP systolic 138–175; BP diastolic 55–90
[2020-05-06 06:37] LABS: BASOPHILS # (AUTO) 0.1 (0.0-0.1); BASOPHILS % 0.3 % (0.0-1.0); EOSINOPHILS % 0.1 % (0.0-6.0); HEMATOCRIT 36.5 % (38.2-49.6); HEMOGLOBIN 10.8 g/dL (14.0-18.0); LYMPHOCYTES # (AUTO) 1.4 (1.0-3.2); LYMPHOCYTES % 7.1 % (18.0-39.1); MEAN CORPUSCULAR HEMOGLOBIN 24.8 pg (28-32); MEAN CORPUSCULAR HGB CONC 29.6 g/dL (31-35); MEAN CORPUSCULAR VOLUME 83.9 fL (81-99); MONOCYTES # (AUTO) 1.3 (0.2-0.8); MONOCYTES % 6.4 % (4.4-11.3); NEUTROPHILS # (AUTO) 16.9 (2.1-6.9); NEUTROPHILS % 85.1 % (38.7-80.0); PLATELET COUNT 262 x10e3/uL (140-360); RED BLOOD COUNT 4.35 x10e6/uL (4.3-5.7)
[2020-05-06 07:00] LABS: ALBUMIN 3.3 g/dL (3.5-5.0); ALBUMIN/GLOBULIN RATIO 0.9 (0.8-2.0); ANION GAP 15.7 mmol/L (8-16); CALCIUM 9.6 mg/dL (8.4-10.2); CREATININE, SERUM 1.44 mg/dL (0.72-1.25); MAGNESIUM 1.6 MG/DL (1.3-2.1); POTASSIUM 4.7 mmol/L (3.5-5.1)
--- NOTE | 2020-05-06 07:10 | NUR ---
PATIENT IS AWAKE, ALERT, AND IN STABLE CONDITION WITH NO S/S OF RESPIRATORY DISTRESS. NO PAIN VOICED. 02 APPLIED AT 2L NC. TELEMETRY APPLIED. TARA HOSE APPLIED TO BILATERAL LOWER EXTREMITIES. CALL LIGHT IS WITHIN REACH- PATIENT INSTRUCTED TO CALL FOR ASSISTANCE NEEDED.
[2020-05-06] MEDS: INSULIN LISPRO 100 UNIT/1 ML 3ML VIAL SQ SCH ×4 (07:30→20:26)
[2020-05-06] MEDS: SALMETEROL/FLUTICASONE 250/50 INH SCH ×2 (07:50→18:25)
[2020-05-06] MEDS: FUROSEMIDE INJ 10 MG/ML 4 ML VIAL IV SCH ×2 (08:51→16:36)
[2020-05-06] MEDS: RIVAROXABAN 15 MG TABLET PO SCH (08:51)
[2020-05-06] MEDS: DOCUSATE SODIUM 100 MG CAP PO SCH ×2 (08:51→20:26)
[2020-05-06] MEDS: METOPROLOL SUCCINATE 50 MG TAB XL PO SCH ×2 (08:51→16:36)
[2020-05-06] MEDS: ALLOPURINOL 300 MG TAB PO SCH (08:51)
[2020-05-06] MEDS: SPIRONOLACTONE 25 MG TAB PO SCH ×2 (08:51→16:36)
[2020-05-06] MEDS: METHYLPREDNISOLONE SOD SUCC 40 MG/ML VIAL 1ML IV SCH (08:51)
[2020-05-06] MEDS: CEFTRIAXONE SOD 1 GM/NS 50 ML 50 ML IV SCH (08:51)
[2020-05-06] MEDS: AZITHROMYCIN 250 MG TAB PO SCH (08:51)
[2020-05-06] MEDS: CLOPIDOGREL BISULFATE 75 MG TAB PO SCH (08:51)
--- NOTE | 2020-05-06 15:00 | NUR ---
DR. BROWNLEE INFORMED PATIENT'S BG IS 454 AND SLIDING SCALE IS INDICATING TO GIVE 14 UNITS AND NOTIFY MD. HAS BEEN NOTIFIED- NO NEW ORDERS RECEIVED.
--- NOTE | 2020-05-06 15:09 | NUR ---
Discontinuing PT services since patient is Mod i in functional mobility.Thank you Addendum: 05/06/20 at 1510 by Doc dos santos PT Amended: Links added.
--- NOTE | 2020-05-06 16:37 | NUR ---
PATIENT C/O SHORTNESS OF BREATH- PATIENT IS CURRENTLY ON 3L NC AT SAT AT 98. RN CALLED CERTIFIED DRIVER EXAMINER TO ASK FOR PRN NEB TREATMENT. PATIENT IS CURRENTLY SITTING IN THE CHAIR- IN STABLE CONDITION WITH NO S/S OF RESPIRATORY DISTRESS. CALL LIGHT IS WITHIN REACH, PATIENT INSTRUCTED TO CALL FOR ASSISTANCE.
[2020-05-06] MEDS: ALBUTEROL/IPRATROPIUM 3 ML NEB NEB PRN ×2 (16:45→21:25)
--- NOTE | 2020-05-06 17:08 | NUR ---
Nutrition Screen Note RD Recommendation for Physician: - Consider adding low Na to diet per current dx - BG and insulin management per MD Plan of Care: RD following, monitoring for tolerance and adequacy Nutrition reason for involvement: DX: CHF Primary Diagnose(s): CHF PMH: IDDM, TVR, CHF, L TKA, obstructive sleep apnea Ht: 70 in Wt: 260 lb BMI: 37.3 kg/m2 IBW: [address] Assessment: 05/06: 84 YOM admitted for CHF, evaluated today per admit dx of CHF. Pt not available at time attempted calls, no answer. Noted pt with SOB this afternoon and working with PT. Pt with good appetite and intake, noted 100% po currently. No wt loss noted per prior admits. No GI distress recorded. Meds and labs reviewed, elevated BG trend noted in 200-300s- insulin per MD. Chart reviewed. Will continue to monitor. Current Diet: 1800 ADA Malnutrition Evaluation (05/06/20) The patient does not meet criteria for a specified degree of malnutrition at this time. Will re-evaluate at follow-up as appropriate. Diet Education Needs Assessment: Diet education indicated, not appropriate at this time. Diet tolerance: tolerating po Nutrition Care Level: low Signed: Iona Domínguez RD, LD, [facility]
[2020-05-06] MEDS: IPRATROPIUM/ALBUTEROL SULFATE 4 GM INH INH PRN (18:30)
--- NOTE | 2020-05-06 18:59 | Progress Note ---
DATE: Cardiology Progress Note SUBJECTIVE: The patient still reports shortness of breath mostly with lying down flat. No chest pain. OBJECTIVE: VITAL SIGNS: Temperature is 98.1, heart rate is 74, respirations are 18, blood pressure is 144/62, ox saturation 93% on 3 L nasal cannula. GENERAL: Well appearing no apparent distress. Alert, orient x3. HEAD: Normocephalic, atraumatic. CARDIOVASCULAR: Regular rate and rhythm. LUNGS: Diminished breath sounds at bases. ABDOMEN: Soft, nontender, nondistended. EXTREMITIES: Edema present. Telemetry monitoring reveals ventricular paced rhythm. White blood cell count is 19, creatinine is 1.44. IMPRESSION: 1. Acute on chronic kidney disease. 2. Aortic valve replacement. 3. Coronary artery disease, status post percutaneous coronary intervention. 4. Pulmonary edema. 5. Diastolic heart failure. 6. Hypertension. RECOMMENDATIONS: Continue intravenous diuretics. Monitor ins and outs, creatinine and electrolyte levels. Recent echocardiogram in our clinic showed an ejection fraction of 55%. Continue all other current cardiovascular medications for his coronary artery disease as well. DO FREDDY Farr/MODL /[id number]
--- NOTE | 2020-05-06 19:05 | NUR ---
PATIENT IS IN STABLE CONDITION WITH NO S/S OF RESPIRATORY DISTRESS. NO PAIN VOICED. TELEMETRY APPLIED. 02 APPLIED AT 3L NC. CALL LIGHT IS WITHIN REACH, PATIENT INSTRUCTED TO CALL FOR ASSISTANCE. BEDSIDE SHIFT REPORT GIVEN TO ONCOMING NURSE.
--- NOTE | 2020-05-06 19:59 | Progress Note ---
DATE: SUBJECTIVE: The patient is still having shortness of breath and received breathing treatment, which is p.r.n. and felt better. He is on Advair 250/50 along with Solu-Medrol. The patient has a history of asthma. PHYSICAL EXAMINATION: VITAL SIGNS: Temperature 98.1, pulse of 74, blood pressure 144/62. CHEST: Decreased air entry. HEART: S1 and S2 audible. ABDOMEN: Soft. EXTREMITIES: No pedal edema. NEUROLOGIC: Awake and alert. LABORATORY DATA: Reviewed. White count is 19,000, possibly can be due to steroids. The patient had a chest x-ray done on the , which showed interstitial lung marking, possibility of pulmonary edema. ASSESSMENT AND PLAN: Mr. Castañeda is an 84-year-old male with shortness of breath. His white cell count has increased. I will change the DuoNebs to q.6 hours schedule. I will also do a CT chest without contrast to further evaluate the chest x-ray finding and continue the patient on Rocephin, azithromycin, and Solu-Medrol. MD XAVI Sanchez/DILLAN /[id number]
[2020-05-06] MEDS: PANTOPRAZOLE SOD 40 MG TABEC PO SCH (20:26)
[2020-05-06] MEDS: ATORVASTATIN 10 MG TAB PO SCH (20:26)
--- NOTE | 2020-05-06 21:38 | Diagnostic Imaging Report ---
EXAM: CT Chest WITHOUT contrast INDICATION: COPD, short of breath, CHF COMPARISON: Chest CT 05/21/2019 TECHNIQUE: Chest was scanned utilizing a multidetector helical scanner from the lung apex through the level of the adrenal glands without administration of IV contrast. Absence of intravenous contrast decreases sensitivity for detection of lymphadenopathy and vascular pathology. Coronal and sagittal reformations were obtained. Routine protocol was performed. IV CONTRAST: None COMPLICATIONS: None RADIATION DOSE: Total DLP: 568 mGy*cm Estimated effective dose: (DLP x 0.014 x size factor) mSv CTDIvol has been reviewed. It is below the limits set by the Radiation Protocol Committee (RPC). Dose modulation, iterative reconstruction, and/or weight based adjustment of the mA/kV was utilized to reduce the radiation dose to as low as reasonably achievable. FINDINGS: LINES/ TUBES: Left chest wall subcutaneous cardiac device with leads in the right atrium and right ventricle. A few groundglass nodules in the right upper lobe, largest measures 1 cm. Chronic hemidiaphragm elevation. LUNGS AND AIRWAYS: Scattered areas of pulmonary scarring/atelectasis.. A few ground glass nodules in the right upper lobe, largest measures 1 cm. The airways are partially collapsed. PLEURA: The pleural spaces are clear. HEART AND MEDIASTINUM: The thyroid gland is normal. No mediastinal, hilar or axillary lymphadenopathy. The heart is normal in size. Aortic valve replacement. Triple vessel coronary artery calcifications and stents. Calcifications of the aorta and major branches. There is no pericardial effusion. UPPER ABDOMEN: Unremarkable. BONES: Healed right rib for fracture. Degenerative changes. Low bone mineral density. SOFT TISSUES: Unremarkable. IMPRESSION: A few indeterminate/new groundglass nodules in the right upper lobe, could be infectious/inflammatory, however atypia is possible. Recommend repeat chest CT in 3 months. Scattered areas of pulmonary scarring/atelectasis. 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 Triple vessel coronary artery calcific atherosclerosis. Signed by: Willie Woods DO on 05/06/2020 9:35 PM
[2020-05-07] VITALS (7 sets, daily range): BP systolic 126–200; BP diastolic 72–85
[2020-05-07] MEDS: ALBUTEROL/IPRATROPIUM 3 ML NEB NEB SCH ×3 (01:54→18:35)
[2020-05-07] MEDS ORDERED: FUROSEMIDE INJ 10 MG/ML 2 ML VIAL IV ONE (05:15)
[2020-05-07 06:13] LABS: BASOPHILS # (AUTO) 0.1 (0.0-0.1); BASOPHILS % 0.5 % (0.0-1.0); HEMATOCRIT 35.6 % (38.2-49.6); HEMOGLOBIN 10.9 g/dL (14.0-18.0); LYMPHOCYTES # (AUTO) 0.9 (1.0-3.2); LYMPHOCYTES % 4.5 % (18.0-39.1); MEAN CORPUSCULAR HEMOGLOBIN 24.6 pg (28-32); MEAN CORPUSCULAR HGB CONC 30.6 g/dL (31-35); MEAN CORPUSCULAR VOLUME 80.4 fL (81-99); MONOCYTES # (AUTO) 1.9 (0.2-0.8); MONOCYTES % 9.4 % (4.4-11.3); NEUTROPHILS # (AUTO) 17.1 (2.1-6.9); NEUTROPHILS % 84.3 % (38.7-80.0); PLATELET COUNT 230 x10e3/uL (140-360); RED BLOOD COUNT 4.43 x10e6/uL (4.3-5.7)
[2020-05-07 06:26] LABS: ALBUMIN 3.3 g/dL (3.5-5.0); ALBUMIN/GLOBULIN RATIO 0.9 (0.8-2.0); ANION GAP 17.1 mmol/L (8-16); CALCIUM 9.7 mg/dL (8.4-10.2); CREATININE, SERUM 1.47 mg/dL (0.72-1.25); POTASSIUM 4.1 mmol/L (3.5-5.1)
--- NOTE | 2020-05-07 07:10 | NUR ---
PATIENT IS IN STABLE CONDITION WITH NO S/S OF RESPIRATORY DISTRESS. NO PAIN VOICED. 02 APPLIED AT 3L NC. TELEMETRY APPLIED. CALL LIGHT IS WITHIN REACH, PATIENT INSTRUCTED TO CALL FOR ASSISTANCE.
[2020-05-07] MEDS: INSULIN LISPRO 100 UNIT/1 ML 3ML VIAL SQ SCH ×4 (07:30→21:37)
[2020-05-07] MEDS: CEFTRIAXONE SOD 1 GM/NS 50 ML 50 ML IV SCH (08:19)
[2020-05-07] MEDS: FUROSEMIDE INJ 10 MG/ML 4 ML VIAL IV SCH ×3 (08:19→21:35)
[2020-05-07] MEDS: METHYLPREDNISOLONE SOD SUCC 40 MG/ML VIAL 1ML IV SCH (08:19)
[2020-05-07] MEDS: CLOPIDOGREL BISULFATE 75 MG TAB PO SCH (08:21)
[2020-05-07] MEDS: METOPROLOL SUCCINATE 50 MG TAB XL PO SCH ×2 (08:21→16:00)
[2020-05-07] MEDS: ALLOPURINOL 300 MG TAB PO SCH (08:21)
[2020-05-07] MEDS: SPIRONOLACTONE 25 MG TAB PO SCH ×2 (08:21→16:00)
[2020-05-07] MEDS: RIVAROXABAN 15 MG TABLET PO SCH (08:21)
[2020-05-07] MEDS: AZITHROMYCIN 250 MG TAB PO SCH (08:21)
[2020-05-07] MEDS: DOCUSATE SODIUM 100 MG CAP PO SCH ×2 (08:21→21:35)
[2020-05-07] MEDS: SALMETEROL/FLUTICASONE 250/50 INH SCH ×2 (08:30→18:50)
--- NOTE | 2020-05-07 10:53 | Progress Note ---
DATE: SUBJECTIVE: The patient is having some wheezing. Steroid was just reduced yesterday. CT of the chest is showing few ground-glass areas. No pneumonia or major finding. PHYSICAL EXAMINATION: VITAL SIGNS: Temperature 97.9, pulse of 70, blood pressure 159/72, respiratory rate of 18, and O2 saturation 97% on 3 L. CHEST: Decreased air entry bilaterally. Wheezing bilaterally. HEART: S1, S2 audible. ABDOMEN: Soft. EXTREMITIES: Trace pedal edema. NEUROLOGIC: Awake and alert. CT of the chest is showing few ground-glass areas, but no clear-cut pneumonia. ASSESSMENT AND PLAN: An 84-year-old male, who is having shortness of breath, chronic right hemidiaphragm elevation and obstructive sleep apnea. The patient has a history of asthma, congestive heart failure, history of TAVR, wheezing right now. I will continue the patient on nebulizer treatment. Continue steroids. The patient is already on diuretics and IV antibiotics. MD XAVI Sanchez/DILLAN /[id number]
--- NOTE | 2020-05-07 11:53 | Progress Note ---
DATE: Cardiology Progress Note SUBJECTIVE: The patient feels a little bit better, less short of breath. No chest pain. OBJECTIVE: VITAL SIGNS: Temperature is 97.9, heart rate is 70, respirations are 24, blood pressure is 116/72, oxygen saturation is 97% on 3 L nasal cannula. GENERAL: Well appearing, in no apparent distress. CARDIOVASCULAR: Regular rate and rhythm. LUNGS: Diminished breath sounds at the bases. ABDOMEN: Soft, nontender, mildly distended. EXTREMITIES: 1+ edema. CARDIOVASCULAR MEDICATIONS: Reviewed. LABORATORY DATA: Reviewed. White blood cell count is 20.26. Creatinine is 1.47, potassium is 4.1. CT of the chest showed ground-glass nodules in the right upper lobe with airway findings compatible with tracheobronchial malacia due to chronic bronchitis. IMPRESSION: 1. Acute on chronic kidney disease. 2. History of aortic valve replacement. 3. Coronary artery disease status post percutaneous coronary intervention. 4. Pulmonary edema. 5. Acute on chronic diastolic heart failure. 6. Hypertension. We are going to increase his diuretics to q.8 hours today. Continue to monitor his creatinine, his in's and out's and electrolyte levels. Recent echocardiogram in our clinic showed an ejection fraction of 55%. Otherwise, continue all current cardiovascular medications. Pulmonary evaluation per Dr. Odell. We will continue to follow along with you. Matt Olsen DO BM/MODL /[id number]
[2020-05-07 12:05] LABS: LYMPHOCYTES % (MANUAL) 4 % (19-48); MONOCYTES % (MANUAL) 5 % (3.4-9.0); NEUTROPHILS % (MANUAL) 91 % (40-74)
[2020-05-07 12:06] LABS: ANISOCYTOSIS SLIGHT; HYPOCHROMASIA SLIGHT; PLATELET ESTIMATE ADEQUATE; PLATELET MORPHOLOGY COMMENT NORMAL; RBC MORPHOLOGY COMMENT ABNORMAL
--- NOTE | 2020-05-07 15:42 | NUR ---
INFORMED DR. BROWNLEE THAT THE PATIENT'S BG IS 544 AND 14 UNITS OF INSULIN HAVE BEEN ADMINISTERED. INQUIRED WITH DR. BROWNLEE IF HE WANTED ANY OTHER ADDITIONAL UNITS TO BE GIVEN- NEW ORDER RECEIVED FOR ONE TIME ADDITIONAL ORDER FOR 20 UNITS OF LISPRO.
[2020-05-07] MEDS ORDERED: INSULIN LISPRO 100 UNIT/1 ML 3ML VIAL SQ ONE (16:30)
--- NOTE | 2020-05-07 19:02 | NUR ---
PATIENT IS IN STABLE CONDITION WITH NO S/S OF RESPIRATORY DISTRESS. NO PAIN VOICED. TELEMETRY APPLIED. PATIENT RECEIVING BREATHING TREATMENT. CALL LIGHT IS WITHIN REACH, PATIENT INSTRUCTED TO CALL FOR ASSISTANCE. BEDSIDE SHIFT REPORT GIVEN TO ONCOMING NURSE.
[2020-05-07] MEDS: PANTOPRAZOLE SOD 40 MG TABEC PO SCH (21:35)
[2020-05-07] MEDS: ATORVASTATIN 10 MG TAB PO SCH (21:35)
[2020-05-08] VITALS (8 sets, daily range): BP systolic 129–156; BP diastolic 67–79
[2020-05-08] MEDS: ALBUTEROL/IPRATROPIUM 3 ML NEB NEB SCH ×4 (00:45→19:20)
[2020-05-08] MEDS: FUROSEMIDE INJ 10 MG/ML 4 ML VIAL IV SCH ×3 (06:15→21:33)
--- NOTE | 2020-05-08 07:00 | NUR ---
received bedside report. pt is resting comfortably in bed, no s/s of distress. call light within reach and bed safety in place
[2020-05-08 07:32] LABS: ALBUMIN 2.8 g/dL (3.5-5.0); ALBUMIN/GLOBULIN RATIO 0.8 (0.8-2.0); ANION GAP 14.6 mmol/L (8-16); CALCIUM 9.1 mg/dL (8.4-10.2); CREATININE, SERUM 1.4 mg/dL (0.72-1.25); MAGNESIUM 1.7 MG/DL (1.3-2.1); POTASSIUM 3.6 mmol/L (3.5-5.1)
[2020-05-08 07:34] LABS: BASOPHILS # (AUTO) 0.1 (0.0-0.1); BASOPHILS % 0.5 % (0.0-1.0); EOSINOPHILS # (AUTO) 0.2 (0.0-0.4); EOSINOPHILS % 1.3 % (0.0-6.0); HEMATOCRIT 34.1 % (38.2-49.6); HEMOGLOBIN 10.1 g/dL (14.0-18.0); LYMPHOCYTES # (AUTO) 1.7 (1.0-3.2); LYMPHOCYTES % 13.1 % (18.0-39.1); MEAN CORPUSCULAR HEMOGLOBIN 24.4 pg (28-32); MEAN CORPUSCULAR HGB CONC 29.6 g/dL (31-35); MEAN CORPUSCULAR VOLUME 82.4 fL (81-99); MONOCYTES # (AUTO) 1.3 (0.2-0.8); MONOCYTES % 9.8 % (4.4-11.3); NEUTROPHILS # (AUTO) 9.5 (2.1-6.9); NEUTROPHILS % 74.4 % (38.7-80.0); PLATELET COUNT 194 x10e3/uL (140-360); RED BLOOD COUNT 4.14 x10e6/uL (4.3-5.7); RED CELL DISTRIBUTION WIDTH 18.1 % (11.7-14.4)
[2020-05-08] MEDS: SALMETEROL/FLUTICASONE 250/50 INH SCH ×2 (07:41→19:30)
[2020-05-08] MEDS: INSULIN LISPRO 100 UNIT/1 ML 3ML VIAL SQ SCH ×4 (08:20→21:33)
[2020-05-08] MEDS: AZITHROMYCIN 250 MG TAB PO SCH (08:28)
[2020-05-08] MEDS: GLIMEPIRIDE 2 MG TAB PO SCH ×2 (08:28→16:52)
[2020-05-08] MEDS: ALLOPURINOL 300 MG TAB PO SCH (08:28)
[2020-05-08] MEDS: CLOPIDOGREL BISULFATE 75 MG TAB PO SCH (08:28)
[2020-05-08] MEDS: METHYLPREDNISOLONE SOD SUCC 40 MG/ML VIAL 1ML IV SCH (08:28)
[2020-05-08] MEDS: DOCUSATE SODIUM 100 MG CAP PO SCH ×2 (08:28→21:33)
[2020-05-08] MEDS: RIVAROXABAN 15 MG TABLET PO SCH (08:28)
[2020-05-08] MEDS: METOPROLOL SUCCINATE 50 MG TAB XL PO SCH ×2 (08:28→16:52)
[2020-05-08] MEDS: SPIRONOLACTONE 25 MG TAB PO SCH ×2 (08:28→16:52)
[2020-05-08] MEDS: CEFTRIAXONE SOD 1 GM/NS 50 ML 50 ML IV SCH (08:43)
[2020-05-08] MEDS ORDERED: SODIUM CHLORIDE 0.9% 250ML 250 ML ONE (08:43)
[2020-05-08] MEDS ORDERED: INSULIN LISPRO 100 UNIT/1 ML 3ML VIAL SQ ONE (16:30)
--- NOTE | 2020-05-08 18:42 | Progress Note ---
DATE: Cardiology Progress Note SUBJECTIVE: The patient reports feeling better, can lay flat longer. Swelling improved. OBJECTIVE: VITAL SIGNS: Temperature is 97.6, heart rate 71, respirations are 20, blood pressure is 156/79, and oxygen saturation 98% on 3 L nasal cannula. GENERAL: Well appearing, in no apparent distress. CARDIOVASCULAR: Regular rate and rhythm. LUNGS: Diminished breath sounds at bases. ABDOMEN: Soft, nondistended, and obese. EXTREMITIES: 1+ edema. Telemetry monitoring was personally reviewed by myself and shows ventricular paced rhythm. CARDIOVASCULAR MEDICATIONS: Reviewed. LABORATORY DATA: Reviewed. White blood cell count 12.4 and hemoglobin 10. Creatinine 1.4 and glucose 416. IMPRESSION: 1. Eouck-ho-iergqsy kidney disease. 2. History of aortic valve replacement. 3. Coronary artery disease, status post percutaneous coronary intervention. 4. Pulmonary edema. 5. Xfavu-nl-tptnwpg diastolic heart failure. 6. Chronic bronchitis. 7. Hypertension. RECOMMENDATIONS: Continue diuretics with Lasix IV q.8 hours for now. May consider changing to p.o. tomorrow. Recent echocardiogram in our clinic showed an ejection fraction of 55%. Otherwise, continue all other current cardiovascular medications. Pulmonary evaluation per Dr. Odell. We will continue to follow along with you. DO FREDDY Farr/MODL /[id number]
--- NOTE | 2020-05-08 18:56 | NUR ---
WALKING ROUNDS PERFORMED, RECEIVED PT LAYING SEMI FOWLERS IN BED, AAOX3, RR EVEN AND NON-LABORED, O2 BY NC AT 3L. NO S/SX OF DISTRESS NOTED. LEFT PT LAYING SEMI FOWLERS IN BED, BED IN LOW LOCKED POSITION, SIDE RAILS UPX2, CALL LIGHT AND PHONE WITHIN REACH.
--- NOTE | 2020-05-08 19:47 | NUR ---
SPOKE WITH MD BROWNLEE CONCERNING PT ELEVATED BLOOD SUGAR. TO GIVE SLIDING SCALE DOSE PLUS AN ADDITIONAL 20 UNITS.
--- NOTE | 2020-05-08 20:18 | Progress Note ---
DATE: Pulmonary Progress Note SUBJECTIVE: The patient has improved with increasing dose of Lasix. I continued the patient on nebulizer. He is denying any complaints of chest pain. PHYSICAL EXAMINATION: VITAL SIGNS: Temperature 98.0, pulse of 71, blood pressure 156/79, respiratory rate of 18, and O2 saturation 98% on 3 L. CHEST: Better air entry bilaterally. Occasional crackles HEART: S1 and S2 audible. ABDOMEN: Soft. EXTREMITIES: Trace pedal edema. NEUROLOGIC: Awake and alert. LABORATORY DATA: Reviewed. White count of 12,000, hemoglobin 10.1, platelets 194. Chemistry, reviewed. Creatinine is down to 1.4 from 1.47. ASSESSMENT/PLAN: Mr. Castañeda is an 84-year-old male with history of congestive diastolic heart failure and asthma. The patient has history of coronary artery disease. CT chest was done yesterday, did not show any evidence of pneumonia, however, showed possibility of pulmonary edema. PLAN: Agree with increasing the diuretics. CT appearance likely is due to pulmonary edema. I will discontinue IV Solu-Medrol and start the patient on p.o. prednisone. Continue the patient on antibiotic. The patient has improved. Home oxygen evaluation was done. The patient qualified for home oxygen. MD XAVI Sanchez/DILLAN /[id number]
[2020-05-08] MEDS: ATORVASTATIN 10 MG TAB PO SCH (21:33)
[2020-05-08] MEDS: PANTOPRAZOLE SOD 40 MG TABEC PO SCH (21:33)
[2020-05-09] VITALS (8 sets, daily range): BP systolic 136–169; BP diastolic 65–82
[2020-05-09] MEDS: ALBUTEROL/IPRATROPIUM 3 ML NEB NEB SCH ×4 (01:00→19:00)
--- NOTE | 2020-05-09 01:50 | NUR ---
Patient did not want to be awakened if asleep
[2020-05-09] MEDS: FUROSEMIDE INJ 10 MG/ML 4 ML VIAL IV SCH ×3 (06:08→20:49)
[2020-05-09] MEDS: HYDROXYZINE HCL 25 MG TAB PO PRN ×2 (06:08→20:47)
[2020-05-09] MEDS: SALMETEROL/FLUTICASONE 250/50 INH SCH ×4 (07:10→21:35)
[2020-05-09] MEDS: INSULIN LISPRO 100 UNIT/1 ML 3ML VIAL SQ SCH ×4 (08:00→20:53)
[2020-05-09] MEDS: CLOPIDOGREL BISULFATE 75 MG TAB PO SCH (09:10)
[2020-05-09] MEDS: SPIRONOLACTONE 25 MG TAB PO SCH ×2 (09:10→17:01)
[2020-05-09] MEDS: DOCUSATE SODIUM 100 MG CAP PO SCH ×2 (09:10→20:47)
[2020-05-09] MEDS: CEFTRIAXONE SOD 1 GM/NS 50 ML 50 ML IV SCH (09:10)
[2020-05-09] MEDS: GLIMEPIRIDE 2 MG TAB PO SCH ×2 (09:10→17:01)
[2020-05-09] MEDS: RIVAROXABAN 15 MG TABLET PO SCH (09:11)
[2020-05-09] MEDS: METOPROLOL SUCCINATE 50 MG TAB XL PO SCH ×2 (09:11→17:02)
[2020-05-09] MEDS: PREDNISONE 20 MG TAB PO SCH (09:11)
[2020-05-09] MEDS: ALLOPURINOL 300 MG TAB PO SCH (09:11)
[2020-05-09] MEDS: AZITHROMYCIN 250 MG TAB PO SCH (09:11)
--- NOTE | 2020-05-09 10:37 | Progress Note ---
DATE: Cardiology Progress Note SUBJECTIVE: The patient reports feeling better, less short of breath, particularly with lying down. No chest pain. OBJECTIVE: VITAL SIGNS: Temperature is 97.7, heart rate 69, respirations are 18, blood pressure is 169/78, and ox saturation 98% on 3 L nasal cannula. GENERAL: Well appearing, no apparent distress. CARDIOVASCULAR: Regular rate and rhythm. LUNGS: Diminished breath sounds at bases. ABDOMEN: Soft, nontender, obese. EXTREMITIES: 1+ edema. TELEMETRY: Telemetry monitoring was personally reviewed by myself and shows ventricular paced rhythm. LABORATORY DATA: Reviewed, none drawn from today. IMPRESSION: 1. Acute on chronic diastolic heart failure. 2. Acute on chronic kidney disease. 3. History aortic valve replacement. 4. Coronary artery disease, status post prior percutaneous coronary intervention. 5. Pulmonary edema. 6. Chronic bronchitis. 7. Hypertension. RECOMMENDATIONS: Continue current diuretics with Lasix q.8 hours. Recent echocardiogram in our clinic showed ejection fraction 55%. Titrate antihypertensives and continue all other current cardiovascular medications. Matt Olsen DO BM/MODL /[id number]
--- NOTE | 2020-05-09 11:37 | Progress Note ---
DATE: SUBJECTIVE: The patient has improved. Breathing has improved. Continue the patient . PHYSICAL EXAMINATION: VITAL SIGNS: Temperature 97.7, pulse of 69, blood pressure 169/78. CHEST: Better air entry. HEART: S1, S2 audible. ABDOMEN: Soft. EXTREMITIES: Trace pedal edema. NEUROLOGIC: Awake and alert. LABORATORY DATA: Reviewed. ASSESSMENT/PLAN: Mr. Castañeda is an 84-year-old male with a history of diastolic heart failure, coronary artery disease, and asthma. PLAN: Agree with increasing the diuretics. The patient is on prednisone now. Breathing has improved with increasing doses of diuretics and spironolactone. The patient will require home oxygen. MD XAVI Sanchez/MODL /[id number]
--- NOTE | 2020-05-09 16:57 | NUR ---
Notified Dr. Peralta of blood sugar of 473. Received orders to give an additional 10units of humalog.
[2020-05-09] MEDS ORDERED: INSULIN LISPRO 100 UNIT/1 ML 3ML VIAL SQ ONE (17:00)
--- NOTE | 2020-05-09 19:03 | NUR ---
WALKING ROUNDS PERFORMED, RECEIVED PT LAYING SEMI FOWLERS IN BED, AAOX3, RR EVEN AND NON-LABORED, PT WEARING HOME CPAP. NO S/SX OF DISTRESS NOTED. LEFT PT LAYING SEMI FOWLERS IN BED, BED IN LOW LOCKED POSITION, SIDE RAILS UPX2, CALL LIGHT AND PHONE WITHIN REACH.
[2020-05-09] MEDS: ATORVASTATIN 10 MG TAB PO SCH (20:47)
[2020-05-09] MEDS: PANTOPRAZOLE SOD 40 MG TABEC PO SCH (20:47)
--- NOTE | 2020-05-09 20:48 | NUR ---
SPOKE WITH MD BROWNLEE CONCERNING ELEVATED BLOOD SUGAR. ORDERS RECEIVED TO GIVE ADDITIONAL 20 UNITS OF INSULIN.
[2020-05-10] VITALS (8 sets, daily range): BP systolic 124–171; BP diastolic 71–88
[2020-05-10] MEDS: FUROSEMIDE INJ 10 MG/ML 4 ML VIAL IV SCH ×3 (05:56→22:00)
[2020-05-10] MEDS: ALBUTEROL/IPRATROPIUM 3 ML NEB NEB SCH ×3 (06:30→21:35)
[2020-05-10 06:52] LABS: BASOPHILS # (AUTO) 0.1 (0.0-0.1); BASOPHILS % 0.6 % (0.0-1.0); EOSINOPHILS # (AUTO) 0.2 (0.0-0.4); EOSINOPHILS % 2.2 % (0.0-6.0); HEMATOCRIT 32.4 % (38.2-49.6); HEMOGLOBIN 9.9 g/dL (14.0-18.0); LYMPHOCYTES # (AUTO) 1.5 (1.0-3.2); LYMPHOCYTES % 14.7 % (18.0-39.1); MEAN CORPUSCULAR HEMOGLOBIN 24.6 pg (28-32); MEAN CORPUSCULAR HGB CONC 30.6 g/dL (31-35); MEAN CORPUSCULAR VOLUME 80.4 fL (81-99); MONOCYTES # (AUTO) 0.8 (0.2-0.8); MONOCYTES % 7.8 % (4.4-11.3); NEUTROPHILS # (AUTO) 7.7 (2.1-6.9); NEUTROPHILS % 73.6 % (38.7-80.0); PLATELET COUNT 231 x10e3/uL (140-360); RED BLOOD COUNT 4.03 x10e6/uL (4.3-5.7); RED CELL DISTRIBUTION WIDTH 17.7 % (11.7-14.4)
[2020-05-10 07:25] LABS: ALBUMIN 2.9 g/dL (3.5-5.0); ALBUMIN/GLOBULIN RATIO 0.8 (0.8-2.0); ANION GAP 14.8 mmol/L (8-16); CALCIUM 9.2 mg/dL (8.4-10.2); CREATININE, SERUM 1.38 mg/dL (0.72-1.25); MAGNESIUM 1.8 MG/DL (1.3-2.1); POTASSIUM 3.8 mmol/L (3.5-5.1)
[2020-05-10] MEDS: INSULIN LISPRO 100 UNIT/1 ML 3ML VIAL SQ SCH ×4 (07:30→21:53)
[2020-05-10] MEDS: SPIRONOLACTONE 25 MG TAB PO SCH ×2 (09:23→16:46)
[2020-05-10] MEDS: GLIMEPIRIDE 2 MG TAB PO SCH ×2 (09:23→16:47)
[2020-05-10] MEDS: CEFTRIAXONE SOD 1 GM/NS 50 ML 50 ML IV SCH (09:23)
[2020-05-10] MEDS: DOCUSATE SODIUM 100 MG CAP PO SCH ×2 (09:23→21:36)
[2020-05-10] MEDS: CLOPIDOGREL BISULFATE 75 MG TAB PO SCH (09:24)
[2020-05-10] MEDS: RIVAROXABAN 15 MG TABLET PO SCH (09:24)
[2020-05-10] MEDS: AZITHROMYCIN 250 MG TAB PO SCH (09:24)
[2020-05-10] MEDS: PREDNISONE 20 MG TAB PO SCH (09:24)
[2020-05-10] MEDS: METOPROLOL SUCCINATE 50 MG TAB XL PO SCH ×2 (09:24→16:47)
[2020-05-10] MEDS: ALLOPURINOL 300 MG TAB PO SCH (09:25)
[2020-05-10] MEDS: SALMETEROL/FLUTICASONE 250/50 INH SCH (09:46)
--- NOTE | 2020-05-10 14:19 | Progress Note ---
DATE: SUBJECTIVE: The patient has improved breathing much better. White cell count is normal. Creatinine has improved with diuresis. PHYSICAL EXAMINATION: VITAL SIGNS: Temperature 98.3, pulse of 70, and blood pressure 162/73. CHEST: Much better air entry bilaterally. No wheezing. HEART: S1 and S2 audible. ABDOMEN: Soft and Nontender. EXTREMITIES: Trace edema. NEUROLOGIC: Awake and alert. LABORATORY DATA: Reviewed. ASSESSMENT/PLAN: Mr. Castañeda is an 84-year-old male with congestive heart failure and asthma. The patient has remarkably improved and if okay with other consulting services, the patient can be discharged home. However, he will need higher doses of Lasix. He is on 40 IV q.8 hourly here. I will discontinue prednisone. He will be continued on inhaler. Home oxygen arrangement is in progress. MD XAVI Sanchez/DILLAN /[id number]
[2020-05-10] MEDS: ATORVASTATIN 10 MG TAB PO SCH (21:36)
[2020-05-10] MEDS: PANTOPRAZOLE SOD 40 MG TABEC PO SCH (21:36)
[2020-05-11] VITALS (8 sets, daily range): BP systolic 147–163; BP diastolic 63–77
[2020-05-11] MEDS: ALBUTEROL/IPRATROPIUM 3 ML NEB NEB SCH ×4 (01:00→19:10)
[2020-05-11] MEDS: FUROSEMIDE INJ 10 MG/ML 4 ML VIAL IV SCH ×3 (06:15→21:42)
[2020-05-11] MEDS: SALMETEROL/FLUTICASONE 250/50 INH SCH ×2 (07:30→19:25)
--- NOTE | 2020-05-11 07:30 | NUR ---
The pt. was received form the off-going nurse in bed without o2 intact. The pt. has ripped the mask apart and is complaining of being unable to breathe. RT was notifed to replace the mask and the remains of current mask was placed back to the trach.
[2020-05-11] MEDS: DOCUSATE SODIUM 100 MG CAP PO SCH ×2 (08:34→20:43)
[2020-05-11] MEDS: PREDNISONE 20 MG TAB PO SCH (08:34)
[2020-05-11] MEDS: RIVAROXABAN 15 MG TABLET PO SCH (08:34)
[2020-05-11] MEDS: GLIMEPIRIDE 2 MG TAB PO SCH ×2 (08:34→16:43)
[2020-05-11] MEDS: AZITHROMYCIN 250 MG TAB PO SCH (08:34)
[2020-05-11] MEDS: SPIRONOLACTONE 25 MG TAB PO SCH ×2 (08:34→16:43)
[2020-05-11] MEDS: ALLOPURINOL 300 MG TAB PO SCH (08:34)
[2020-05-11] MEDS: CEFTRIAXONE SOD 1 GM/NS 50 ML 50 ML IV SCH (08:34)
[2020-05-11] MEDS: CLOPIDOGREL BISULFATE 75 MG TAB PO SCH (08:34)
--- NOTE | 2020-05-11 09:27 | Progress Note ---
DATE: SUBJECTIVE: An 84-year-old male, who came in with acute congestive heart failure, acute COPD exacerbation, and the patient is feeling better. No complaints today. No chest pain. No shortness of breath. The patient was evaluated yesterday for oxygen. He was 95% on room air without oxygen. Did not meet criteria for oxygen at home. The patient has no chest pain and no shortness of breath at this time. He wants to go home. OBJECTIVE: VITAL SIGNS: Currently, temperature 97.8, pulse of 70, respirations of 20, blood pressure is 163/77, pulse oximetry of 95% on 3 L. HEENT: Normocephalic and atraumatic. Pupils are reactive. CVS: S1 and S2 are normal. Regular rate and rhythm. ABDOMEN: Nontender and nondistended. EXTREMITIES: Positive 1+ edema. IMAGING STUDIES: CT chest done shows tracheobronchomalacia, scattered areas of pulmonary scarring, and triple-vessel coronary atherosclerosis. The patient has been evaluated by Dr. Olsen and Dr. Odell. ASSESSMENT: 1. Kkudm-ja-qeilsdu heart failure. Continue on Lasix, increase the dose. 2. Acute chronic kidney injury. 3. History of aortic valve replacement. 4. Coronary artery disease. 5. Chronic bronchitis. 6. Pulmonary edema. PLAN AND DISPOSITION: Okay to discharge home if okay with Pulmonary and Dr. Olsen. We will continue to monitor the patient. The patient is currently on torsemide 40 mg twice a day. We will switch him back to 40 mg twice a day and discharge the patient. Further recommendation per clinical course. MD TERESITA Reddy/MODL /[id number]
[2020-05-11] MEDS: METOPROLOL SUCCINATE 50 MG TAB XL PO SCH ×2 (09:33→17:26)
[2020-05-11] MEDS: INSULIN LISPRO 100 UNIT/1 ML 3ML VIAL SQ SCH ×4 (09:52→21:53)
[2020-05-11] MEDS ORDERED: INSULIN LISPRO 100 UNIT/1 ML 3ML VIAL SQ ONE (16:45)
--- NOTE | 2020-05-11 19:04 | Progress Note ---
DATE: Cardiology Progress Note SUBJECTIVE: The patient feeling better, can lie flat, less short of breath. OBJECTIVE: VITAL SIGNS: Temperature is 98.3, heart rate 74, respirations 18, blood pressure is 152/64, and oxygen saturation 97% on 3 L nasal cannula. GENERAL: Well-appearing, in no apparent distress. CARDIOVASCULAR: Regular rate and rhythm. LUNGS: Diminished breath sounds at bases. ABDOMEN: Soft, obese. EXTREMITIES: No edema. LABORATORY AND DIAGNOSTIC DATA: Telemetry monitoring was personally reviewed, it shows ventricular paced rhythm. LABORATORY DATA: Reviewed. IMPRESSION: 1. Dpykt-ft-rwpogit diastolic heart failure. 2. Tmask-yw-pqosaeg kidney disease. 3. History of aortic valve replacement. 4. Coronary artery disease, status post prior percutaneous coronary intervention. 5. Pulmonary edema. 6. Chronic bronchitis. 7. Hypertension. 8. Anemia. RECOMMENDATIONS: Continue current cardiovascular medications. Continue Lasix q.8 hours. Recent echocardiogram in our clinic showed ejection fraction of 55%. Titrate antihypertensives. Continue anemia workup per Primary team. We will continue to follow along with you. DO FREDDY Farr/MODL /[id number]
--- NOTE | 2020-05-11 19:15 | NUR ---
Received bed side report, introduced self to patient. safety and fall precautions maintained as per hospital protocols: bed in lowest position and locked, needed items beside bed, call jordan close to patient, patient instructed to use it to call nurses for any assistance needed, patient verbalized understanding. patient is currently stable will continue to monitor.
[2020-05-11] MEDS: PANTOPRAZOLE SOD 40 MG TABEC PO SCH (20:42)
[2020-05-11] MEDS: ATORVASTATIN 10 MG TAB PO SCH (20:43)
[2020-05-12] VITALS (9 sets, daily range): BP systolic 133–164; BP diastolic 58–85
[2020-05-12] MEDS: ALBUTEROL/IPRATROPIUM 3 ML NEB NEB SCH ×4 (01:00→19:55)
[2020-05-12] MEDS: INSULIN LISPRO 100 UNIT/1 ML 3ML VIAL SQ SCH ×4 (07:30→21:00)
--- NOTE | 2020-05-12 07:35 | NUR ---
PATIENT SITTING AT BED SIDE WATCHING TV. CPAP IN PLACE, NO DISTRESS NOTED. URINAL EMPTIED AND CLEANSED. BED IN LOWER POSITION, CALL LIGHT AT REACH.
--- NOTE | 2020-05-12 07:46 | NUR ---
patient endorsed to next shift for continuity of care.
[2020-05-12] MEDS: FUROSEMIDE INJ 10 MG/ML 4 ML VIAL IV SCH ×3 (07:48→22:08)
[2020-05-12] MEDS: CEFTRIAXONE SOD 1 GM/NS 50 ML 50 ML IV SCH (08:00)
[2020-05-12] MEDS: GLIMEPIRIDE 2 MG TAB PO SCH ×2 (08:00→17:14)
[2020-05-12] MEDS: SALMETEROL/FLUTICASONE 250/50 INH SCH ×2 (08:40→19:50)
[2020-05-12] MEDS ORDERED: PREDNISONE 20 MG TAB PO SCH (09:00)
--- NOTE | 2020-05-12 09:25 | Progress Note ---
DATE: SUBJECTIVE: The patient came in with congestive heart failure, COPD exacerbation, renal insufficiency, and history of urinary retention. The patient is currently feeling better, wants to go home. Yesterday, blood sugars were running high at 500s, correction done. Yesterday's white count is 10.46, hemoglobin of 9.9, hematocrit of 32.4, and neutrophil count is 7.7. Glucose was running in the 400 yesterday; today's is 389. PHYSICAL EXAMINATION: VITAL SIGNS: Temperature is 98.2, pulse of 69, blood pressure is 157/79, and pulse oximetry 100%. HEENT: Normocephalic, atraumatic. The patient is using a CPAP at this time. CVS: S1 and S2 normal. Regular rate and rhythm. Mechanical valve present. ABDOMEN: Soft, nontender, nondistended. EXTREMITIES: Positive for trace edema. MEDICATIONS: The patient is on insulin lispro, docusate, atorvastatin, pantoprazole, fluticasone, metoprolol, insulin, glimepiride, Aldactone, Xarelto 15 mg, ceftriaxone, azithromycin, clopidogrel, allopurinol, hydroxyzine, albuterol, prednisone, and dextrose 50 mL as needed for blood sugars drop. LABORATORY VALUES: As mentioned. ASSESSMENT: Mr. Castañeda with, 1. Acute on chronic congestive heart failure, systolic. 2. Acute kidney injury. 3. Uncontrolled diabetes mellitus. 4. History of aortic valve replacement. 5. Coronary artery disease. 6. Bronchitis. 7. Pulmonary edema. PLAN: Add Levemir 15 units to his regimen in lieu of his prednisone intake and also uncontrolled diabetes. Check his hemoglobin A1c. Discharge plan will be held until tomorrow, until Dr. Peralta comes back. Further recommendation per clinical course. We will continue to monitor the patient. MD SAGE ReddyJ/MODL /[id number]
[2020-05-12] MEDS: CLOPIDOGREL BISULFATE 75 MG TAB PO SCH (09:43)
[2020-05-12] MEDS: DOCUSATE SODIUM 100 MG CAP PO SCH ×2 (09:43→22:05)
[2020-05-12] MEDS: PREDNISONE 10 MG TAB PO SCH (09:43)
[2020-05-12] MEDS: SPIRONOLACTONE 25 MG TAB PO SCH ×2 (09:43→17:14)
[2020-05-12] MEDS: ALLOPURINOL 300 MG TAB PO SCH (09:44)
[2020-05-12] MEDS: RIVAROXABAN 15 MG TABLET PO SCH (09:44)
[2020-05-12] MEDS: METOPROLOL SUCCINATE 50 MG TAB XL PO SCH ×2 (09:44→17:15)
--- NOTE | 2020-05-12 11:27 | NUR ---
PATIENT ASSISTED WITH URINAL, SITTING AT BED SIDE. CALL LIGHT AT REACH.
--- NOTE | 2020-05-12 12:56 | Progress Note ---
DATE: Cardiology Progress Note SUBJECTIVE: The patient is feeling much better. Denies any chest pain and he states that the shortness of breath has improved. OBJECTIVE: VITAL SIGNS: Temperature 98.8, heart rate 72, respirations are 20, blood pressure is 149/68, and oxygen saturation 98% on 2 L nasal cannula. GENERAL: Well appearing, no apparent distress. CARDIOVASCULAR: Regular rate and rhythm. LUNGS: Diminished breath sounds at the bases. ABDOMEN: Soft, nontender, nondistended. EXTREMITIES: 1+ edema. CARDIOVASCULAR MEDICATIONS: Reviewed. LABORATORY DATA: Reviewed. Glucose is 270. TELEMETRY: Telemetry monitoring shows ventricular paced rhythm. IMPRESSION: 1. Acute on chronic diastolic heart failure. 2. Acute on chronic kidney disease. 3. History of aortic valve replacement. 4. Coronary artery disease, status post percutaneous coronary intervention. 5. Pulmonary edema. 6. Chronic bronchitis. 7. Hypertension. 8. Anemia. 9. Diabetes mellitus. RECOMMENDATIONS: Continue current cardiovascular medications. Continue Lasix q.8 hours for adequate diuresis. Recent echocardiogram in our clinic showing ejection fraction of 55%. Titrate antihypertensives. Continue anemia workup per primary team. Continue diabetic treatment per primary team and Endocrinology. DO FREDDY Farr/MODL /[id number]
--- NOTE | 2020-05-12 16:18 | NUR ---
MD IN TO SEE PATIENT, NO NEW ORDER RECEIVED.
[2020-05-12] MEDS ORDERED: INSULIN GLARGINE 100 UNITS/ML VIAL SQ SCH (21:00)
[2020-05-12] MEDS: ATORVASTATIN 10 MG TAB PO SCH (22:05)
[2020-05-12] MEDS: PANTOPRAZOLE SOD 40 MG TABEC PO SCH (22:05)
[2020-05-13] MEDS: ALBUTEROL/IPRATROPIUM 3 ML NEB NEB SCH ×2 (00:39→08:17)
[2020-05-13 05:59] VITALS: BP 155/76
[2020-05-13] MEDS: FUROSEMIDE INJ 10 MG/ML 4 ML VIAL IV SCH ×2 (06:20→16:07)
--- NOTE | 2020-05-13 06:55 | NUR ---
Patient endorsed to next shift fo continuity of care.
[2020-05-13 06:57] LABS: BASOPHILS # (AUTO) 0.1 (0.0-0.1); BASOPHILS % 0.8 % (0.0-1.0); EOSINOPHILS # (AUTO) 0.3 (0.0-0.4); EOSINOPHILS % 2.8 % (0.0-6.0); HEMATOCRIT 33.8 % (38.2-49.6); HEMOGLOBIN 10.1 g/dL (14.0-18.0); LYMPHOCYTES # (AUTO) 1.7 (1.0-3.2); LYMPHOCYTES % 16.8 % (18.0-39.1); MEAN CORPUSCULAR HEMOGLOBIN 24.2 pg (28-32); MEAN CORPUSCULAR HGB CONC 29.9 g/dL (31-35); MEAN CORPUSCULAR VOLUME 81.1 fL (81-99); MONOCYTES # (AUTO) 0.8 (0.2-0.8); MONOCYTES % 7.6 % (4.4-11.3); NEUTROPHILS # (AUTO) 7.2 (2.1-6.9); NEUTROPHILS % 69.7 % (38.7-80.0); PLATELET COUNT 230 x10e3/uL (140-360); RED BLOOD COUNT 4.17 x10e6/uL (4.3-5.7); RED CELL DISTRIBUTION WIDTH 17.7 % (11.7-14.4)
[2020-05-13 07:40] LABS: ALBUMIN 3.1 g/dL (3.5-5.0); ANION GAP 13.8 mmol/L (8-16); CREATININE, SERUM 1.32 mg/dL (0.72-1.25); MAGNESIUM 1.8 MG/DL (1.3-2.1); POTASSIUM 3.8 mmol/L (3.5-5.1)
[2020-05-13 08:10] VITALS: BP 148/73
[2020-05-13] MEDS: SALMETEROL/FLUTICASONE 250/50 INH SCH (08:17)
[2020-05-13] MEDS: AZITHROMYCIN 250 MG TAB PO SCH ×2 (09:00→09:39)
[2020-05-13] MEDS: SPIRONOLACTONE 25 MG TAB PO SCH ×2 (09:36→16:06)
[2020-05-13] MEDS: CEFTRIAXONE SOD 1 GM/NS 50 ML 50 ML IV SCH (09:36)
[2020-05-13] MEDS: CLOPIDOGREL BISULFATE 75 MG TAB PO SCH (09:36)
[2020-05-13] MEDS: DOCUSATE SODIUM 100 MG CAP PO SCH (09:36)
[2020-05-13] MEDS: GLIMEPIRIDE 2 MG TAB PO SCH ×2 (09:36→16:06)
[2020-05-13] MEDS: PREDNISONE 10 MG TAB PO SCH (09:36)
[2020-05-13] MEDS: ALLOPURINOL 300 MG TAB PO SCH (09:37)
[2020-05-13] MEDS: RIVAROXABAN 15 MG TABLET PO SCH (09:37)
[2020-05-13] MEDS: METOPROLOL SUCCINATE 50 MG TAB XL PO SCH ×2 (09:37→16:06)
[2020-05-13] MEDS: INSULIN LISPRO 100 UNIT/1 ML 3ML VIAL SQ SCH ×3 (09:39→16:08)
[2020-05-13 10:37] VITALS: BP 149/73
[2020-05-13 11:59] VITALS: BP 148/57
--- NOTE | 2020-05-13 13:45 | NUR ---
Spoke with Dr. Pace and states patient is okay to discharge from his standpoint.
[2020-05-13 15:19] VITALS: BP 134/61
--- NOTE | 2020-05-13 15:30 | NUR ---
Spoke with Dr. Choi and states pt can be discharged if he does not become hypoxic with ambulation. Received orders for home O2 evaluation. Home O2 evaluation was done and pt oxygen level was 98% with exertion.
--- NOTE | 2020-05-13 16:15 | NUR ---
Notified Dr. Peralta that cardiology and pulmonology had both cleared patient. Received orders for patient to discharge home.
--- NOTE | 2020-05-13 16:19 | Progress Note ---
DATE: 05/13/2020 Cardiology Progress note SUBJECTIVE: The patient denies chest pain or shortness of breath. OBJECTIVE: VITAL SIGNS: Temperature 97.6 degrees, pulse 70, respiratory rate 19, blood pressure 148/57, and oxygen saturation 98% on room air. GENERAL: An elderly man, in no acute distress. Awake and alert. LUNGS: Clear to auscultation bilaterally. No wheezes or crackles. CARDIOVASCULAR: Normal rate. Regular rhythm. No murmur. Normal S1, S2. ABDOMEN: Soft, nontender. EXTREMITIES: 1+ pitting edema. CARDIAC MEDICATIONS: Xarelto 15 mg p.o. daily, metoprolol succinate 50 mg p.o. b.i.d., spironolactone 25 mg p.o. b.i.d., Plavix 75 mg p.o. daily, furosemide 40 mg IV q.8 hours, and atorvastatin 10 mg p.o. at bedtime. LABORATORY DATA: WBC 10.36, hemoglobin 10.1, hematocrit 33.8, and platelets 230. Sodium 136, potassium 3.8, chloride 96, CO2 of 30, BUN 24, and creatinine 1.32. TELEMETRY: Telemetry was personally reviewed and interpreted, revealing ventricular paced rhythm. IMPRESSION: 1. Tvzuk-xg-jlojsje diastolic heart failure. 2. Acute on chronic kidney disease. 3. History of aortic valve replacement. 4. Coronary artery disease status post percutaneous coronary intervention. 5. Hypertension. 6. Diabetes mellitus. 7. Anemia. 8. Chronic bronchitis. RECOMMENDATIONS: Continue current cardiac medications. Blood pressure is acceptable for his age. Creatinine is improving. Continue IV Lasix while admitted. Wean supplemental oxygen as tolerated. The patient had echocardiogram at our office showing ejection fraction of 55% recently. No further cardiac evaluation is indicated at this time. Thank you for this consult. We will continue to follow. Ginny Choi MD ABS/MODL /[id number]
--- NOTE | 2020-05-13 16:46 | NUR ---
Nutrition Screen Note RD Recommendation for Physician: - Recommend adding low Na to diet per current diagnosis Plan of Care: RD following, monitoring for tolerance and adequacy Nutrition reason for involvement: follow up Primary Diagnose(s): CHF PMH: IDDM, TVR, CHF, L TKA, obstructive sleep apnea Ht: 70 in Wt: 259 lbs (05/13) 260 lb (05/04) BMI: 37.3 kg/m2 IBW: [address] Assessment: 05/13: Follow up. Chart reviewed. It is recorded that pt is consuming 75-100% of meals. Weight has been stable. Will continue to monitor. 05/06: 84 YOM admitted for CHF, evaluated today per admit dx of CHF. Pt not available at time attempted calls, no answer. Noted pt with SOB this afternoon and working with PT. Pt with good appetite and intake, noted 100% po currently. No wt loss noted per prior admits. No GI distress recorded. Meds and labs reviewed, elevated BG trend noted in 200-300s- insulin per MD. Chart reviewed. Will continue to monitor. Current Diet: 1800 ADA Malnutrition Evaluation (05/13/20) The patient does not meet criteria for a specified degree of malnutrition at this time. Will re-evaluate at follow-up as appropriate. Diet Education Needs Assessment: RD is available for diet education as needed Diet tolerance: tolerating po Nutrition Care Level: low Signed: Noelle Rossi RD, LD
[2020-05-13] MEDS ORDERED: XARELTO10 MG PO (16:57)
== END 2020-05-13 17:48 | disposition home or self-care (01) | DRG 291 ==
LOC: ER 10:52 → ERHOLD 15:41 → MED/SURG3 16:52
PROVIDERS: ADMIT Internal Medicine; ATTEND Internal Medicine
DX: I13.0 Hypertensive heart and chronic kidney disease with heart failure and stage 1 through stage 4 chronic kidney disease, or unspecified chronic kidney disease (principal); I50.33 Acute on chronic diastolic (congestive) heart failure; N17.9 Acute kidney failure, unspecified; J96.11 Chronic respiratory failure with hypoxia; J44.9 Chronic obstructive pulmonary disease, unspecified; I25.10 Atherosclerotic heart disease of native coronary artery without angina pectoris; E11.22 Type 2 diabetes mellitus with diabetic chronic kidney disease; N18.3 Chronic kidney disease, stage 3 (moderate); Z11.59 Encounter for screening for other viral diseases; G47.33 Obstructive sleep apnea (adult) (pediatric); M1A.9XX1 Chronic gout, unspecified, with tophus (tophi); E78.00 Pure hypercholesterolemia, unspecified; E66.9 Obesity, unspecified; Z68.37 Body mass index [BMI] 37.0-37.9, adult; Z79.01 Long term (current) use of anticoagulants; Z95.2 Presence of prosthetic heart valve; J45.909 Unspecified asthma, uncomplicated
CPT/HCPCS: 36415; 71045; 71250; 80053; 81001; 82550; 82553; 82948; 83540; 83735; 83880; 84466; 84484; 85025; 85610; 85730; 87040; 87086; 93005; 94640; 94660; 94664; 99284; J0456; J0696; J1940; J2920; J2930; J3410; J7050; J7512; U0002

== ENCOUNTER → 2020-09-30 | Outpatient (CLI) | payer MEDICARE, BC ==
[~2020-09-30] MED LIST changes: +XARELTO10 MG PO
== END ==
LOC: CT 16:00
PROVIDERS: ATTEND Internal Medicine Critical Care Medicine
DX: J45.909 Unspecified asthma, uncomplicated (principal); J44.9 Chronic obstructive pulmonary disease, unspecified; Q79.1 Other congenital malformations of diaphragm; K21.9 Gastro-esophageal reflux disease without esophagitis; G47.33 Obstructive sleep apnea (adult) (pediatric)
CPT/HCPCS: 71250

== ENCOUNTER 2020-10-17 19:17 | Inpatient (IN) | payer MEDICARE, BC ==
[~2020-10-17] VITALS: Ht 172.7 cm; Wt 123.4 kg
[2020-10-17 20:13] LABS: BASOPHILS # (AUTO) 0.1 (0.0-0.1); BASOPHILS % 0.6 % (0.0-1.0); EOSINOPHILS # (AUTO) 0.4 (0.0-0.4); EOSINOPHILS % 3.1 % (0.0-6.0); HEMATOCRIT 34.9 % (38.2-49.6); HEMOGLOBIN 11.3 g/dL (14.0-18.0); LYMPHOCYTES # (AUTO) 0.8 (1.0-3.2); LYMPHOCYTES % 5.6 % (18.0-39.1); MEAN CORPUSCULAR HEMOGLOBIN 28.5 pg (28-32); MEAN CORPUSCULAR HGB CONC 32.4 g/dL (31-35); MEAN CORPUSCULAR VOLUME 87.9 fL (81-99); MONOCYTES # (AUTO) 1.2 (0.2-0.8); MONOCYTES % 8.5 % (4.4-11.3); NEUTROPHILS # (AUTO) 11.2 (2.1-6.9); NEUTROPHILS % 80.5 % (38.7-80.0); PLATELET COUNT 249 x10e3/uL (140-360); RED BLOOD COUNT 3.97 x10e6/uL (4.3-5.7); RED CELL DISTRIBUTION WIDTH 15.7 % (11.7-14.4)
[2020-10-17 20:25] LABS: INR 1.68
[2020-10-17 20:26] LABS: PARTIAL THROMBOPLASTIN TIME 39.7 seconds (23.8-35.5)
[2020-10-17 20:35] LABS: ALBUMIN 3.4 g/dL (3.5-5.0); ALBUMIN/GLOBULIN RATIO 0.9 (0.8-2.0); ANION GAP 22.5 mmol/L (8-16); CALCIUM 8.8 mg/dL (8.4-10.2); CREATININE, SERUM 3.31 mg/dL (0.72-1.25); POTASSIUM 4.5 mmol/L (3.5-5.1)
[2020-10-17] MEDS ORDERED: INSULIN REGULAR, HUMAN 100 UNIT/1 ML 3ML VIAL SQ ONE (21:15)
[2020-10-17 22:08] LABS: CREATINE KINASE MB 2.4 ng/mL (0-5.0)
[2020-10-17] MEDS ORDERED: DEXTROSE 50% SYRINGE 50 ML IV PRN (23:15)
[2020-10-17] MEDS ORDERED: SODIUM CHLORIDE 0.9% 1000ML 1,000 ML IV ONE (23:15)
[2020-10-17] MEDS: CEFTRIAXONE SOD 1 GRAM/0.9% SOD CHL 50ML BAG IV SCH (23:45)
[2020-10-18] VITALS (9 sets, daily range): BP systolic 107–137; BP diastolic 47–67
[2020-10-18] MEDS: AZITHROMYCIN 500MG/SOD CHL 0.9% 250ML BAG IV SCH ×2 (00:18→21:23)
[2020-10-18] MEDS ORDERED: ALLOPURINOL300 MG PO (03:47)
[2020-10-18] MEDS ORDERED: ATORVASTATIN CA10 MG PO (03:48)
[2020-10-18] MEDS ORDERED: LASIX80 MG PO (03:58)
[2020-10-18] MEDS ORDERED: COLACE100 MG PO (03:58)
[2020-10-18] MEDS ORDERED: PANTOPRAZOLE SO40 MG PO (03:58)
[2020-10-18] MEDS ORDERED: SPIROLACTONE (03:58)
[2020-10-18] MEDS ORDERED: METOPROLOL SUCC50 MG PO (03:58)
[2020-10-18] MEDS ORDERED: WIXELA 250-501 EACH (04:06)
[2020-10-18 08:53] LABS: CREATINE KINASE MB 2.2 ng/mL (0-5.0)
[2020-10-18] MEDS: SALMETEROL/FLUTICASONE 250/50 INH SCH ×2 (09:00→16:33)
[2020-10-18] MEDS ORDERED: POTASSIUM CHLORIDE 10MEQ EA PO SCH (09:00)
[2020-10-18] MEDS: DOCUSATE SODIUM 100 MG CAP PO SCH ×2 (09:03→16:28)
[2020-10-18] MEDS: METOPROLOL SUCCINATE 50 MG TAB XL PO SCH (09:04)
[2020-10-18] MEDS: RIVAROXABAN 15 MG TABLET PO SCH (09:04)
[2020-10-18] MEDS: ALLOPURINOL 300 MG TAB PO SCH (09:04)
[2020-10-18] MEDS: INSULIN REGULAR, HUMAN 100 UNIT/1 ML 3ML VIAL SQ SCH ×4 (11:15→16:30)
[2020-10-18 11:34] LABS: ANION GAP 17.3 mmol/L (8-16); CALCIUM 8.4 mg/dL (8.4-10.2); CREATININE, SERUM 2.48 mg/dL (0.72-1.25); POTASSIUM 4.3 mmol/L (3.5-5.1)
[2020-10-18 16:13] LABS: CREATINE KINASE MB 2.3 ng/mL (0-5.0)
[2020-10-18] MEDS: DIPHENHYDRAMINE HCL 30 GM TUBE TOP PRN (18:08)
[2020-10-18] MEDS: CEFTRIAXONE SOD 1 GRAM/0.9% SOD CHL 50ML BAG IV SCH (20:37)
[2020-10-18] MEDS: PANTOPRAZOLE SOD 40 MG TABEC PO SCH (20:38)
[2020-10-18] MEDS: ATORVASTATIN 10 MG TAB PO SCH (20:38)
[2020-10-18 23:43] LABS: CLARITY,URINE SL CLOUDY (CLEAR); COLOR,URINE YELLOW (YELLOW); KETONES,URINE NEGATIVE (NEGATIVE); LEUKOCYTE ESTERASE ,URINE TRACE (NEGATIVE); NITRITE,URINE NEGATIVE (NEGATIVE); PROTEIN,URINE DIPSTICK NEGATIVE (NEGATIVE); URINE UROBILINOGEN 0.2 mg/dL (0.2 - 1)
[2020-10-18 23:46] LABS: BACTERIA,URINE FEW /HPF; EPITHELIAL CELLS,URINE RARE /LPF; RBC,URINE 0-5 /HPF (0-5); WBC,URINE (MAN) 21-50 /HPF (0-5)
[2020-10-19] VITALS (9 sets, daily range): BP systolic 95–122; BP diastolic 36–58
[2020-10-19] MEDS ORDERED: GUAIFENESIN 200 MG/10 ML UDC PO PRN (00:15)
[2020-10-19] MEDS ORDERED: ALBUTEROL SULF 0.083% NEB SOLN 3 ML NEB NEB PRN (00:15)
[2020-10-19] MEDS: DIPHENHYDRAMINE HCL 30 GM TUBE TOP PRN ×2 (02:44→08:51)
[2020-10-19] MEDS ORDERED: HYDROXYZINE HCL 25 MG TAB PO PRN (03:45)
[2020-10-19] MEDS: TRAMADOL HCL 50 MG TAB PO PRN (03:55)
[2020-10-19 05:02] LABS: BASOPHILS # (AUTO) 0.1 (0.0-0.1); BASOPHILS % 0.6 % (0.0-1.0); EOSINOPHILS # (AUTO) 0.7 (0.0-0.4); EOSINOPHILS % 6.8 % (0.0-6.0); HEMATOCRIT 33.3 % (38.2-49.6); HEMOGLOBIN 10.5 g/dL (14.0-18.0); LYMPHOCYTES # (AUTO) 1.2 (1.0-3.2); LYMPHOCYTES % 10.9 % (18.0-39.1); MEAN CORPUSCULAR HGB CONC 31.5 g/dL (31-35); MEAN CORPUSCULAR VOLUME 88.8 fL (81-99); MONOCYTES # (AUTO) 1.4 (0.2-0.8); MONOCYTES % 13.2 % (4.4-11.3); NEUTROPHILS # (AUTO) 7.2 (2.1-6.9); NEUTROPHILS % 66.7 % (38.7-80.0); PLATELET COUNT 206 x10e3/uL (140-360); RED BLOOD COUNT 3.75 x10e6/uL (4.3-5.7); RED CELL DISTRIBUTION WIDTH 15.9 % (11.7-14.4)
[2020-10-19 05:26] LABS: ALBUMIN 3.1 g/dL (3.5-5.0); ALBUMIN/GLOBULIN RATIO 0.8 (0.8-2.0); ANION GAP 15.7 mmol/L (8-16); CALCIUM 8.6 mg/dL (8.4-10.2); CREATININE, SERUM 2.01 mg/dL (0.72-1.25); POTASSIUM 3.7 mmol/L (3.5-5.1)
[2020-10-19] MEDS: INSULIN REGULAR, HUMAN 100 UNIT/1 ML 3ML VIAL SQ SCH ×4 (07:30→21:00)
[2020-10-19] MEDS: SALMETEROL/FLUTICASONE 250/50 INH SCH ×4 (08:30→20:00)
[2020-10-19] MEDS: METOPROLOL SUCCINATE 50 MG TAB XL PO SCH (08:34)
[2020-10-19] MEDS: DOCUSATE SODIUM 100 MG CAP PO SCH ×2 (08:34→17:24)
[2020-10-19] MEDS: RIVAROXABAN 15 MG TABLET PO SCH (08:35)
[2020-10-19] MEDS: ALLOPURINOL 300 MG TAB PO SCH (08:35)
[2020-10-19] MEDS ORDERED: SODIUM CHLORIDE 0.9% 500ML 500 ML ONE (11:06)
[2020-10-19] MEDS ORDERED: SODIUM CHLORIDE 0.9% 500ML 500 ML IV ONE (12:00)
[2020-10-19] MEDS: SODIUM CHLORIDE 0.9% 1000ML 1,000 ML IV SCH (14:22)
[2020-10-19] MEDS: PANTOPRAZOLE SOD 40 MG TABEC PO SCH (20:38)
[2020-10-19] MEDS: ATORVASTATIN 10 MG TAB PO SCH (20:38)
[2020-10-19] MEDS: CEFTRIAXONE SOD 1 GRAM/0.9% SOD CHL 50ML BAG IV SCH (20:38)
[2020-10-19] MEDS: MONTELUKAST SODIUM 10 MG TAB PO SCH (20:38)
[2020-10-19] MEDS: AZITHROMYCIN 500MG/SOD CHL 0.9% 250ML BAG IV SCH (21:09)
[2020-10-20] VITALS (8 sets, daily range): BP systolic 116–153; BP diastolic 57–63
[2020-10-20] MEDS: SODIUM CHLORIDE 0.9% 1000ML 1,000 ML IV SCH ×2 (02:10→17:09)
[2020-10-20 06:03] LABS: ANION GAP 15.9 mmol/L (8-16); CALCIUM 8.2 mg/dL (8.4-10.2); CREATININE, SERUM 1.61 mg/dL (0.72-1.25); POTASSIUM 3.9 mmol/L (3.5-5.1)
[2020-10-20] MEDS: INSULIN REGULAR, HUMAN 100 UNIT/1 ML 3ML VIAL SQ SCH ×4 (07:30→20:52)
[2020-10-20] MEDS: SALMETEROL/FLUTICASONE 250/50 INH SCH (08:09)
[2020-10-20] MEDS: DOCUSATE SODIUM 100 MG CAP PO SCH ×2 (08:38→16:45)
[2020-10-20] MEDS: RIVAROXABAN 15 MG TABLET PO SCH (08:38)
[2020-10-20] MEDS: METOPROLOL SUCCINATE 50 MG TAB XL PO SCH (08:38)
[2020-10-20] MEDS: ALLOPURINOL 300 MG TAB PO SCH (08:38)
[2020-10-20] MEDS: CEFTRIAXONE SOD 1 GRAM/0.9% SOD CHL 50ML BAG IV SCH (20:51)
[2020-10-20] MEDS: PANTOPRAZOLE SOD 40 MG TABEC PO SCH (20:51)
[2020-10-20] MEDS: ATORVASTATIN 10 MG TAB PO SCH (20:51)
[2020-10-20] MEDS: MONTELUKAST SODIUM 10 MG TAB PO SCH (20:52)
[2020-10-20] MEDS: AZITHROMYCIN 500MG/SOD CHL 0.9% 250ML BAG IV SCH (21:35)
[2020-10-20] MEDS: TRAMADOL HCL 50 MG TAB PO PRN (23:33)
[2020-10-21] VITALS (9 sets, daily range): BP systolic 122–136; BP diastolic 44–57
[2020-10-21] MEDS: SODIUM CHLORIDE 0.9% 1000ML 1,000 ML IV SCH ×2 (02:48→19:35)
[2020-10-21] MEDS: SALMETEROL/FLUTICASONE 250/50 INH SCH ×3 (08:05→23:06)
[2020-10-21] MEDS: DOCUSATE SODIUM 100 MG CAP PO SCH ×2 (08:47→18:25)
[2020-10-21] MEDS: METOPROLOL SUCCINATE 50 MG TAB XL PO SCH (08:48)
[2020-10-21] MEDS: RIVAROXABAN 15 MG TABLET PO SCH (08:48)
[2020-10-21] MEDS: ALLOPURINOL 300 MG TAB PO SCH (08:48)
[2020-10-21] MEDS: INSULIN REGULAR, HUMAN 100 UNIT/1 ML 3ML VIAL SQ SCH ×4 (09:19→20:48)
[2020-10-21] MEDS: ATORVASTATIN 10 MG TAB PO SCH (20:47)
[2020-10-21] MEDS: CEFTRIAXONE SOD 1 GRAM/0.9% SOD CHL 50ML BAG IV SCH (20:47)
[2020-10-21] MEDS: MONTELUKAST SODIUM 10 MG TAB PO SCH (20:47)
[2020-10-21] MEDS: PANTOPRAZOLE SOD 40 MG TABEC PO SCH (20:47)
[2020-10-21] MEDS: AZITHROMYCIN 500MG/SOD CHL 0.9% 250ML BAG IV SCH (23:50)
[2020-10-22] VITALS (8 sets, daily range): BP systolic 130–142; BP diastolic 51–93
[2020-10-22] MEDS: SODIUM CHLORIDE 0.9% 1000ML 1,000 ML IV SCH (00:38)
[2020-10-22 06:35] LABS: BASOPHILS # (AUTO) 0.1 (0.0-0.1); BASOPHILS % 0.5 % (0.0-1.0); EOSINOPHILS # (AUTO) 0.7 (0.0-0.4); EOSINOPHILS % 4.8 % (0.0-6.0); HEMATOCRIT 31.4 % (38.2-49.6); HEMOGLOBIN 9.7 g/dL (14.0-18.0); LYMPHOCYTES % 6.7 % (18.0-39.1); MEAN CORPUSCULAR HGB CONC 30.9 g/dL (31-35); MEAN CORPUSCULAR VOLUME 90.8 fL (81-99); MONOCYTES # (AUTO) 1.3 (0.2-0.8); MONOCYTES % 8.8 % (4.4-11.3); NEUTROPHILS # (AUTO) 11.6 (2.1-6.9); NEUTROPHILS % 77.9 % (38.7-80.0); PLATELET COUNT 208 x10e3/uL (140-360); RED BLOOD COUNT 3.46 x10e6/uL (4.3-5.7)
[2020-10-22 07:07] LABS: ALBUMIN/GLOBULIN RATIO 0.8 (0.8-2.0); ANION GAP 13.2 mmol/L (8-16); CALCIUM 8.3 mg/dL (8.4-10.2); CREATININE, SERUM 1.66 mg/dL (0.72-1.25); POTASSIUM 4.2 mmol/L (3.5-5.1)
[2020-10-22] MEDS: INSULIN REGULAR, HUMAN 100 UNIT/1 ML 3ML VIAL SQ SCH ×4 (07:30→21:00)
[2020-10-22] MEDS: SALMETEROL/FLUTICASONE 250/50 INH SCH (08:14)
[2020-10-22] MEDS: DOCUSATE SODIUM 100 MG CAP PO SCH ×2 (08:43→16:04)
[2020-10-22] MEDS: RIVAROXABAN 15 MG TABLET PO SCH (08:44)
[2020-10-22] MEDS: METOPROLOL SUCCINATE 50 MG TAB XL PO SCH (08:44)
[2020-10-22] MEDS: ALLOPURINOL 300 MG TAB PO SCH (08:44)
[2020-10-22] MEDS: ATORVASTATIN 10 MG TAB PO SCH (21:07)
[2020-10-22] MEDS: PANTOPRAZOLE SOD 40 MG TABEC PO SCH (21:07)
[2020-10-22] MEDS: CEFTRIAXONE SOD 1 GRAM/0.9% SOD CHL 50ML BAG IV SCH (21:07)
[2020-10-22] MEDS: MONTELUKAST SODIUM 10 MG TAB PO SCH (21:07)
[2020-10-22] MEDS: AZITHROMYCIN 500MG/SOD CHL 0.9% 250ML BAG IV SCH (21:53)
[2020-10-22] MEDS: TRAMADOL HCL 50 MG TAB PO PRN (22:04)
[2020-10-23] VITALS (9 sets, daily range): BP systolic 114–144; BP diastolic 55–64
[2020-10-23] MEDS: TRAMADOL HCL 50 MG TAB PO PRN ×2 (04:16→20:43)
[2020-10-23] MEDS ORDERED: MAGNESIUM SULFATE 2GM/50ML 50 ML IV ONE (04:30)
[2020-10-23] MEDS: SALMETEROL/FLUTICASONE 250/50 INH SCH ×2 (07:21→17:00)
[2020-10-23 08:12] LABS: ANION GAP 15.9 mmol/L (8-16); CALCIUM 8.5 mg/dL (8.4-10.2); CREATININE, SERUM 1.56 mg/dL (0.72-1.25); MAGNESIUM 1.6 MG/DL (1.3-2.1); PHOSPHORUS 2.2 MG/DL (2.3-4.7); POTASSIUM 3.9 mmol/L (3.5-5.1)
[2020-10-23] MEDS: INSULIN REGULAR, HUMAN 100 UNIT/1 ML 3ML VIAL SQ SCH ×4 (08:20→20:57)
[2020-10-23] MEDS ORDERED: FUROSEMIDE 20 MG TAB PO SCH (09:00)
[2020-10-23] MEDS: LISINOPRIL 2.5 MG TAB PO SCH (09:30)
[2020-10-23] MEDS: DOCUSATE SODIUM 100 MG CAP PO SCH ×2 (09:30→16:39)
[2020-10-23] MEDS: METOPROLOL SUCCINATE 50 MG TAB XL PO SCH (09:30)
[2020-10-23] MEDS: RIVAROXABAN 15 MG TABLET PO SCH (09:30)
[2020-10-23] MEDS: ALLOPURINOL 300 MG TAB PO SCH (09:30)
[2020-10-23] MEDS: MONTELUKAST SODIUM 10 MG TAB PO SCH (20:43)
[2020-10-23] MEDS: ATORVASTATIN 10 MG TAB PO SCH (20:43)
[2020-10-23] MEDS: CEFTRIAXONE SOD 1 GRAM/0.9% SOD CHL 50ML BAG IV SCH (20:43)
[2020-10-23] MEDS: PANTOPRAZOLE SOD 40 MG TABEC PO SCH (20:43)
[2020-10-23] MEDS ORDERED: ACETAMINOPHEN/CODEINE 300MG - 30MG TAB PO PRN (21:45)
[2020-10-24] VITALS (7 sets, daily range): BP systolic 92–132; BP diastolic 53–80
[2020-10-24] MEDS: TRAMADOL HCL 50 MG TAB PO PRN (04:45)
[2020-10-24] MEDS ORDERED: ASPIRIN 81 MG ENTERIC COATED PO STA (05:06)
[2020-10-24 05:39] LABS: BASOPHILS # (AUTO) 0.1 (0.0-0.1); BASOPHILS % 0.6 % (0.0-1.0); EOSINOPHILS # (AUTO) 0.7 (0.0-0.4); EOSINOPHILS % 6.8 % (0.0-6.0); HEMATOCRIT 31.7 % (38.2-49.6); HEMOGLOBIN 10.2 g/dL (14.0-18.0); LYMPHOCYTES # (AUTO) 1.1 (1.0-3.2); LYMPHOCYTES % 10.1 % (18.0-39.1); MEAN CORPUSCULAR HEMOGLOBIN 29.4 pg (28-32); MEAN CORPUSCULAR HGB CONC 32.2 g/dL (31-35); MEAN CORPUSCULAR VOLUME 91.4 fL (81-99); MONOCYTES # (AUTO) 0.8 (0.2-0.8); MONOCYTES % 7.8 % (4.4-11.3); NEUTROPHILS # (AUTO) 7.7 (2.1-6.9); NEUTROPHILS % 72.3 % (38.7-80.0); PLATELET COUNT 206 x10e3/uL (140-360); RED BLOOD COUNT 3.47 x10e6/uL (4.3-5.7); RED CELL DISTRIBUTION WIDTH 16.3 % (11.7-14.4)
[2020-10-24 06:21] LABS: ALBUMIN 2.8 g/dL (3.5-5.0); ALBUMIN/GLOBULIN RATIO 0.7 (0.8-2.0); ANION GAP 16.5 mmol/L (8-16); CALCIUM 8.5 mg/dL (8.4-10.2); CREATININE, SERUM 1.61 mg/dL (0.72-1.25); MAGNESIUM 1.5 MG/DL (1.3-2.1); POTASSIUM 4.5 mmol/L (3.5-5.1)
[2020-10-24] MEDS: SALMETEROL/FLUTICASONE 250/50 INH SCH (06:39)
[2020-10-24] MEDS: DOCUSATE SODIUM 100 MG CAP PO SCH ×2 (08:40→16:30)
[2020-10-24] MEDS: FUROSEMIDE 20 MG TAB PO SCH ×3 (08:40→16:30)
[2020-10-24] MEDS: LISINOPRIL 2.5 MG TAB PO SCH (08:41)
[2020-10-24] MEDS: ALLOPURINOL 300 MG TAB PO SCH (08:41)
[2020-10-24] MEDS: METOPROLOL SUCCINATE 50 MG TAB XL PO SCH (08:41)
[2020-10-24] MEDS: INSULIN REGULAR, HUMAN 100 UNIT/1 ML 3ML VIAL SQ SCH ×4 (08:41→21:05)
[2020-10-24] MEDS: RIVAROXABAN 15 MG TABLET PO SCH (08:41)
[2020-10-24] MEDS: ACETAMINOPHEN 325 MG TAB PO PRN ×2 (08:48→16:30)
[2020-10-24] MEDS: PANTOPRAZOLE SOD 40 MG TABEC PO SCH (20:32)
[2020-10-24] MEDS: MONTELUKAST SODIUM 10 MG TAB PO SCH (20:32)
[2020-10-24] MEDS: CEFTRIAXONE SOD 1 GRAM/0.9% SOD CHL 50ML BAG IV SCH (20:33)
[2020-10-24] MEDS: ATORVASTATIN 10 MG TAB PO SCH (20:34)
[2020-10-25] VITALS (7 sets, daily range): BP systolic 119–129; BP diastolic 46–98
[2020-10-25 05:04] LABS: BASOPHILS % 0.3 % (0.0-1.0); EOSINOPHILS # (AUTO) 0.9 (0.0-0.4); EOSINOPHILS % 9.3 % (0.0-6.0); HEMATOCRIT 33.8 % (38.2-49.6); HEMOGLOBIN 10.5 g/dL (14.0-18.0); LYMPHOCYTES % 10.3 % (18.0-39.1); MEAN CORPUSCULAR HEMOGLOBIN 28.2 pg (28-32); MEAN CORPUSCULAR HGB CONC 31.1 g/dL (31-35); MEAN CORPUSCULAR VOLUME 90.6 fL (81-99); MONOCYTES # (AUTO) 0.7 (0.2-0.8); MONOCYTES % 7.4 % (4.4-11.3); NEUTROPHILS # (AUTO) 6.7 (2.1-6.9); NEUTROPHILS % 69.9 % (38.7-80.0); PLATELET COUNT 269 x10e3/uL (140-360); RED BLOOD COUNT 3.73 x10e6/uL (4.3-5.7); RED CELL DISTRIBUTION WIDTH 15.6 % (11.7-14.4)
[2020-10-25 05:34] LABS: ALBUMIN 2.9 g/dL (3.5-5.0); ALBUMIN/GLOBULIN RATIO 0.7 (0.8-2.0); ANION GAP 16.7 mmol/L (8-16); CALCIUM 8.5 mg/dL (8.4-10.2); CREATININE, SERUM 1.9 mg/dL (0.72-1.25); POTASSIUM 4.7 mmol/L (3.5-5.1)
[2020-10-25] MEDS: INSULIN REGULAR, HUMAN 100 UNIT/1 ML 3ML VIAL SQ SCH ×4 (07:30→21:00)
[2020-10-25] MEDS: RIVAROXABAN 15 MG TABLET PO SCH (08:26)
[2020-10-25] MEDS: ALLOPURINOL 300 MG TAB PO SCH (08:26)
[2020-10-25] MEDS: METOPROLOL SUCCINATE 50 MG TAB XL PO SCH (08:26)
[2020-10-25] MEDS: LISINOPRIL 2.5 MG TAB PO SCH (08:27)
[2020-10-25] MEDS: DOCUSATE SODIUM 100 MG CAP PO SCH ×2 (08:27→16:48)
[2020-10-25] MEDS: FUROSEMIDE 20 MG TAB PO SCH ×2 (08:27→16:48)
[2020-10-25] MEDS ORDERED: METHYLPREDNISOLONE SOD SUCC 125 MG/2ML VIAL IV SCH (09:00)
[2020-10-25] MEDS: DIPHENHYDRAMINE HCL 30 GM TUBE TOP PRN (11:59)
[2020-10-25] MEDS ORDERED: GABAPENTIN 100 MG CAP PO SCH (21:00)
[2020-10-25] MEDS: ATORVASTATIN 10 MG TAB PO SCH (21:20)
[2020-10-25] MEDS: MONTELUKAST SODIUM 10 MG TAB PO SCH (21:20)
[2020-10-25] MEDS: PANTOPRAZOLE SOD 40 MG TABEC PO SCH (21:20)
[2020-10-26] MEDS ORDERED: ASPIRIN 81 MG ENTERIC COATED PO SCH (09:00)
== END 2020-10-25 21:00 | disposition home or self-care (01) | DRG 291 ==
LOC: ER 19:41 → ERHOLD 23:12 → MED/SURG2 10-18 01:46
PROVIDERS: ADMIT Internal Medicine; ATTEND Internal Medicine
DX: I13.0 Hypertensive heart and chronic kidney disease with heart failure and stage 1 through stage 4 chronic kidney disease, or unspecified chronic kidney disease (principal); I50.33 Acute on chronic diastolic (congestive) heart failure; J18.9 Pneumonia, unspecified organism; J96.01 Acute respiratory failure with hypoxia; N17.9 Acute kidney failure, unspecified; Z68.41 Body mass index [BMI] 40.0-44.9, adult; E87.1 Hypo-osmolality and hyponatremia; J45.901 Unspecified asthma with (acute) exacerbation; E66.2 Morbid (severe) obesity with alveolar hypoventilation; E11.22 Type 2 diabetes mellitus with diabetic chronic kidney disease; N18.30 Chronic kidney disease, stage 3 unspecified; K21.9 Gastro-esophageal reflux disease without esophagitis; E86.0 Dehydration; E78.5 Hyperlipidemia, unspecified; Z95.2 Presence of prosthetic heart valve; Z95.810 Presence of automatic (implantable) cardiac defibrillator; Z88.0 Allergy status to penicillin; Z86.711 Personal history of pulmonary embolism; Z79.4 Long term (current) use of insulin; Z20.822 Contact with and (suspected) exposure to COVID-19
CPT/HCPCS: 36415; 71045; 76770; 80048; 80053; 81001; 82550; 82553; 82948; 83735; 83880; 84100; 84484; 85025; 85610; 85730; 87040; 93005; 96361; 96372; 97139; 99251; 99284; J0456; J0696; J1817; J2930; J3410; J3475; J7030; J7040; U0002

== ENCOUNTER 2020-11-04 18:31 | Emergency (ER) | payer MEDICARE, BC ==
[~2020-11-04] VITALS: Ht 172.7 cm; Wt 123.4 kg
[~2020-11-04 18:31] MED LIST changes: +COLACE100 MG PO; +LASIX80 MG PO; +SPIROLACTONE; +WIXELA 250-501 EACH
== END 2020-11-04 19:10 | disposition home or self-care (01) ==
LOC: ER 19:10
DX: R06.00 Dyspnea, unspecified (principal); Z60.8 Other problems related to social environment; R60.9 Edema, unspecified; I12.0 Hypertensive chronic kidney disease with stage 5 chronic kidney disease or end stage renal disease; E11.22 Type 2 diabetes mellitus with diabetic chronic kidney disease; N18.6 End stage renal disease; Z99.2 Dependence on renal dialysis
CPT/HCPCS: 99282

== ENCOUNTER 2020-12-07 22:35 | Emergency (ER) | payer MEDICARE, BC ==
[~2020-12-07] VITALS: Ht 172.7 cm; Wt 123.4 kg
[2020-12-08 01:52] VITALS: BP 160/84
== END 2020-12-08 01:53 | disposition home or self-care (01) ==
LOC: ER 22:44
DX: S43.401A Unspecified sprain of right shoulder joint, initial encounter (principal); X50.1XXA Overexertion from prolonged static or awkward postures, initial encounter; Y93.84 Activity, sleeping; Y92.003 Bedroom of unspecified non-institutional (private) residence as the place of occurrence of the external cause; I12.0 Hypertensive chronic kidney disease with stage 5 chronic kidney disease or end stage renal disease; E11.22 Type 2 diabetes mellitus with diabetic chronic kidney disease; N18.6 End stage renal disease; Z99.2 Dependence on renal dialysis
CPT/HCPCS: 99283

== ENCOUNTER 2021-01-06 12:09 | Inpatient (IN) | payer MEDICARE, BC ==
[~2021-01-06] VITALS: Ht 177.8 cm; Wt 112.3 kg
[2021-01-06] MEDS ORDERED: CEFEPIME 1 GM in SODIUM CHLORIDE 0.9% 50ML 50 ML IV STA (12:15)
[2021-01-06 12:33] LABS: BASOPHILS # (AUTO) 0.1 (0.0-0.1); BASOPHILS % 0.7 % (0.0-1.0); EOSINOPHILS # (AUTO) 0.2 (0.0-0.4); EOSINOPHILS % 2.1 % (0.0-6.0); HEMATOCRIT 37.2 % (38.2-49.6); LYMPHOCYTES # (AUTO) 1.3 (1.0-3.2); LYMPHOCYTES % 12.9 % (18.0-39.1); MEAN CORPUSCULAR HEMOGLOBIN 27.9 pg (28-32); MEAN CORPUSCULAR HGB CONC 32.3 g/dL (31-35); MEAN CORPUSCULAR VOLUME 86.5 fL (81-99); MONOCYTES # (AUTO) 0.9 (0.2-0.8); NEUTROPHILS # (AUTO) 7.7 (2.1-6.9); PLATELET COUNT 274 x10e3/uL (140-360); RED CELL DISTRIBUTION WIDTH 17.6 % (11.7-14.4)
[2021-01-06 12:59] LABS: ALBUMIN/GLOBULIN RATIO 1.1 (0.8-2.0); ANION GAP 18.8 mmol/L (8-16); CREATININE, SERUM 3.5 mg/dL (0.72-1.25); POTASSIUM 4.8 mmol/L (3.5-5.1)
[2021-01-06] MEDS ORDERED: METOLAZONE5 MG PO (13:14)
[2021-01-06] MEDS ORDERED: ASPIRIN CHEW81 MG PO (13:14)
[2021-01-06] MEDS ORDERED: COLCHICINE0.6 M1 PO (13:14)
[2021-01-06] MEDS ORDERED: GLIMEPIRIDE2 MG PO (13:14)
[2021-01-06] MEDS: VANCOMYCIN 750MG/NS 150ML IVPB 150 ML IV SCH (14:28)
[2021-01-06 16:00] VITALS: BP 139/58
[2021-01-06 18:00] VITALS: BP 139/58
[2021-01-06 19:24] VITALS: BP 130/60
[2021-01-06 20:44] VITALS: BP 130/60
[2021-01-07] VITALS (8 sets, daily range): BP systolic 115–133; BP diastolic 55–67
[2021-01-07] MEDS: VANCOMYCIN 750MG/NS 150ML IVPB 150 ML IV SCH (01:00)
[2021-01-07] MEDS ORDERED: CEFEPIME HCL 1 GM VIAL IV SCH (04:45)
[2021-01-07 06:19] LABS: BASOPHILS % 0.5 % (0.0-1.0); EOSINOPHILS # (AUTO) 0.3 (0.0-0.4); EOSINOPHILS % 3.2 % (0.0-6.0); HEMATOCRIT 34.8 % (38.2-49.6); HEMOGLOBIN 11.1 g/dL (14.0-18.0); LYMPHOCYTES # (AUTO) 1.4 (1.0-3.2); LYMPHOCYTES % 16.7 % (18.0-39.1); MEAN CORPUSCULAR HEMOGLOBIN 27.6 pg (28-32); MEAN CORPUSCULAR HGB CONC 31.9 g/dL (31-35); MEAN CORPUSCULAR VOLUME 86.6 fL (81-99); MONOCYTES # (AUTO) 0.9 (0.2-0.8); MONOCYTES % 11.3 % (4.4-11.3); NEUTROPHILS # (AUTO) 5.6 (2.1-6.9); NEUTROPHILS % 67.1 % (38.7-80.0); PLATELET COUNT 223 x10e3/uL (140-360); RED BLOOD COUNT 4.02 x10e6/uL (4.3-5.7); RED CELL DISTRIBUTION WIDTH 17.6 % (11.7-14.4)
[2021-01-07 06:39] LABS: ANION GAP 15.4 mmol/L (8-16); CALCIUM 8.7 mg/dL (8.4-10.2); CREATININE, SERUM 3.23 mg/dL (0.72-1.25); POTASSIUM 4.4 mmol/L (3.5-5.1)
[2021-01-07] MEDS ORDERED: FUROSEMIDE 40 MG TAB PO SCH (09:00)
[2021-01-07] MEDS ORDERED: POTASSIUM CHLORIDE 10MEQ EA PO SCH (09:00)
[2021-01-07] MEDS ORDERED: COLCHICINE 0.6 MG TAB PO SCH (09:00)
[2021-01-07] MEDS: SALMETEROL/FLUTICASONE 250/50 INH SCH ×2 (09:00→19:15)
[2021-01-07] MEDS ORDERED: SODIUM CHLORIDE 0.9% 250ML 250 ML ONE (09:37)
[2021-01-07] MEDS: CEFEPIME 1 GM in SODIUM CHLORIDE 0.9% 50ML 50 ML IV SCH ×2 (09:49→16:58)
[2021-01-07] MEDS: GLIMEPIRIDE 2 MG TAB PO SCH ×2 (09:51→16:08)
[2021-01-07] MEDS: DOCUSATE SODIUM 100 MG CAP PO SCH ×2 (09:51→16:08)
[2021-01-07] MEDS: ASPIRIN 81 MG CHEW TAB PO SCH (09:51)
[2021-01-07] MEDS: RIVAROXABAN 10 MG TABLET PO SCH (09:52)
[2021-01-07] MEDS: METOPROLOL SUCCINATE 50 MG TAB XL PO SCH (09:52)
[2021-01-07] MEDS: ALLOPURINOL 300 MG TAB PO SCH (09:53)
[2021-01-07 14:54] LABS: CLARITY,URINE CLEAR (CLEAR); COLOR,URINE YELLOW (YELLOW); KETONES,URINE NEGATIVE (NEGATIVE); LEUKOCYTE ESTERASE ,URINE NEGATIVE (NEGATIVE); NITRITE,URINE NEGATIVE (NEGATIVE); PROTEIN,URINE DIPSTICK 1+ (NEGATIVE); URINE UROBILINOGEN 0.2 mg/dL (0.2 - 1)
[2021-01-07 15:24] LABS: CREATININE,URINE RANDOM 138.59 mg/dL (63-166); TOTAL PROTEIN, URINE 19.4 mg/dL (1-14)
[2021-01-07] MEDS: ATORVASTATIN 10 MG TAB PO SCH (20:37)
[2021-01-07] MEDS: PANTOPRAZOLE SOD 40 MG TABEC PO SCH (20:37)
[2021-01-08] VITALS (8 sets, daily range): BP systolic 115–146; BP diastolic 55–80
[2021-01-08] MEDS: CEFEPIME 1 GM in SODIUM CHLORIDE 0.9% 50ML 50 ML IV SCH ×2 (05:00→17:31)
[2021-01-08] MEDS: SALMETEROL/FLUTICASONE 250/50 INH SCH (06:47)
[2021-01-08 06:50] LABS: ALBUMIN 3.8 g/dL (3.5-5.0); ALBUMIN/GLOBULIN RATIO 1.1 (0.8-2.0); ANION GAP 15.5 mmol/L (8-16); CALCIUM 9.6 mg/dL (8.4-10.2); CREATININE, SERUM 2.59 mg/dL (0.72-1.25); POTASSIUM 4.5 mmol/L (3.5-5.1); VANCOMYCIN,RANDOM 6.2 ug/mL
[2021-01-08] MEDS: DOCUSATE SODIUM 100 MG CAP PO SCH ×2 (09:05→17:00)
[2021-01-08] MEDS: GLIMEPIRIDE 2 MG TAB PO SCH ×2 (09:05→17:00)
[2021-01-08] MEDS: ASPIRIN 81 MG CHEW TAB PO SCH (09:05)
[2021-01-08] MEDS: RIVAROXABAN 10 MG TABLET PO SCH (09:06)
[2021-01-08] MEDS: METOPROLOL SUCCINATE 50 MG TAB XL PO SCH (09:06)
[2021-01-08] MEDS: ALLOPURINOL 300 MG TAB PO SCH (09:06)
[2021-01-08] MEDS ORDERED: DEXTROSE 50% SYRINGE 50 ML IV PRN (11:00)
[2021-01-08] MEDS: INSULIN REGULAR, HUMAN 100 UNIT/1 ML 3ML VIAL SQ SCH ×3 (11:22→20:30)
[2021-01-08] MEDS ORDERED: VANCOMYCIN 1GM/NS 250 ML 250 ML IV ONE (14:30)
[2021-01-08] MEDS: PANTOPRAZOLE SOD 40 MG TABEC PO SCH (20:30)
[2021-01-08] MEDS: ATORVASTATIN 10 MG TAB PO SCH (20:30)
[2021-01-09] VITALS (9 sets, daily range): BP systolic 120–137; BP diastolic 51–82
[2021-01-09] MEDS: CEFEPIME 1 GM in SODIUM CHLORIDE 0.9% 50ML 50 ML IV SCH ×2 (05:15→16:41)
[2021-01-09] MEDS: SALMETEROL/FLUTICASONE 250/50 INH SCH ×2 (07:18→20:27)
[2021-01-09] MEDS: INSULIN REGULAR, HUMAN 100 UNIT/1 ML 3ML VIAL SQ SCH ×4 (07:30→21:16)
[2021-01-09] MEDS: ASPIRIN 81 MG CHEW TAB PO SCH (08:49)
[2021-01-09] MEDS: DOCUSATE SODIUM 100 MG CAP PO SCH ×2 (08:49→16:41)
[2021-01-09] MEDS: GLIMEPIRIDE 2 MG TAB PO SCH ×2 (08:49→16:41)
[2021-01-09] MEDS: ALLOPURINOL 300 MG TAB PO SCH (08:50)
[2021-01-09] MEDS: METOPROLOL SUCCINATE 50 MG TAB XL PO SCH (08:50)
[2021-01-09] MEDS: RIVAROXABAN 10 MG TABLET PO SCH (08:50)
[2021-01-09] MEDS: COLLAGENASE 5 GM TUBE TOP SCH (16:41)
[2021-01-09] MEDS: BALSAM PERU/CASTOR OIL 60 GM OINT...G. TP SCH (16:41)
[2021-01-09] MEDS: ATORVASTATIN 10 MG TAB PO SCH (21:16)
[2021-01-09] MEDS: PANTOPRAZOLE SOD 40 MG TABEC PO SCH (21:16)
[2021-01-10] VITALS: BP 111/65
[2021-01-10 04:30] VITALS: BP 139/66
[2021-01-10] MEDS: CEFEPIME 1 GM in SODIUM CHLORIDE 0.9% 50ML 50 ML IV SCH (05:20)
[2021-01-10 06:01] LABS: ALBUMIN 3.5 g/dL (3.5-5.0); ALBUMIN/GLOBULIN RATIO 1.1 (0.8-2.0); ANION GAP 15.4 mmol/L (8-16); CALCIUM 8.9 mg/dL (8.4-10.2); CREATININE, SERUM 1.86 mg/dL (0.72-1.25); POTASSIUM 4.4 mmol/L (3.5-5.1)
[2021-01-10] MEDS: SALMETEROL/FLUTICASONE 250/50 INH SCH (07:21)
[2021-01-10 07:55] VITALS: BP 146/85
[2021-01-10] MEDS: ASPIRIN 81 MG CHEW TAB PO SCH (08:14)
[2021-01-10] MEDS: GLIMEPIRIDE 2 MG TAB PO SCH (08:14)
[2021-01-10] MEDS: DOCUSATE SODIUM 100 MG CAP PO SCH (08:14)
[2021-01-10] MEDS: COLLAGENASE 5 GM TUBE TOP SCH (08:15)
[2021-01-10] MEDS: METOPROLOL SUCCINATE 50 MG TAB XL PO SCH (08:15)
[2021-01-10] MEDS: ALLOPURINOL 300 MG TAB PO SCH (08:15)
[2021-01-10] MEDS: BALSAM PERU/CASTOR OIL 60 GM OINT...G. TP SCH (08:15)
[2021-01-10] MEDS: RIVAROXABAN 10 MG TABLET PO SCH (08:15)
[2021-01-10 09:00] VITALS: BP 146/85
[2021-01-10] MEDS: INSULIN REGULAR, HUMAN 100 UNIT/1 ML 3ML VIAL SQ SCH ×2 (09:03→12:03)
[2021-01-10 11:44] VITALS: BP 114/86
== END 2021-01-10 13:20 | DRG 603 ==
LOC: ER 12:46 → ERHOLD 12:58 → MED/SURG3 15:52
PROVIDERS: ADMIT Internal Medicine; ATTEND Internal Medicine
DX: L03.116 Cellulitis of left lower limb (principal); E87.1 Hypo-osmolality and hyponatremia; N17.9 Acute kidney failure, unspecified; E11.621 Type 2 diabetes mellitus with foot ulcer; E11.628 Type 2 diabetes mellitus with other skin complications; Z79.899 Other long term (current) drug therapy; E66.9 Obesity, unspecified; Z68.35 Body mass index [BMI] 35.0-35.9, adult; G47.33 Obstructive sleep apnea (adult) (pediatric); E78.5 Hyperlipidemia, unspecified; D64.9 Anemia, unspecified; I12.9 Hypertensive chronic kidney disease with stage 1 through stage 4 chronic kidney disease, or unspecified chronic kidney disease; M10.9 Gout, unspecified; Z20.822 Contact with and (suspected) exposure to COVID-19; N18.32 Chronic kidney disease, stage 3b; K21.9 Gastro-esophageal reflux disease without esophagitis; D63.1 Anemia in chronic kidney disease; Z88.0 Allergy status to penicillin
CPT/HCPCS: 36415; 71046; 76770; 80048; 80053; 80202; 81001; 82570; 82948; 83605; 84156; 84550; 85025; 87040; 93005; 94664; 96372; 99251; 99284; J0692; J1817; J3370; J7050; U0002

== ENCOUNTER 2021-04-16 14:31 | Inpatient (IN) | payer MEDICARE, BC ==
[~2021-04-16] VITALS: Ht 182.9 cm; Wt 118.2 kg
[~2021-04-16 14:31] MED LIST changes: +ASPIRIN CHEW81 MG PO; +COLCHICINE0.6 M1 PO; +GLIMEPIRIDE2 MG PO
[2021-04-16 15:41] LABS: BASOPHILS # (AUTO) 0.1 (0.0-0.1); BASOPHILS % 0.8 % (0.0-1.0); EOSINOPHILS # (AUTO) 0.2 (0.0-0.4); EOSINOPHILS % 1.4 % (0.0-6.0); HEMATOCRIT 22.6 % (38.2-49.6); LYMPHOCYTES % 7.2 % (18.0-39.1); MEAN CORPUSCULAR HGB CONC 29.6 g/dL (31-35); MEAN CORPUSCULAR VOLUME 84.3 fL (81-99); MONOCYTES # (AUTO) 1.4 (0.2-0.8); MONOCYTES % 10.3 % (4.4-11.3); NEUTROPHILS # (AUTO) 10.6 (2.1-6.9); NEUTROPHILS % 79.5 % (38.7-80.0); PLATELET COUNT 195 x10e3/uL (140-360); RED BLOOD COUNT 2.68 x10e6/uL (4.3-5.7)
[2021-04-16 15:45] LABS: HEMOGLOBIN 6.7 g/dL (14.0-18.0)
[2021-04-16 16:00] LABS: ALBUMIN 2.8 g/dL (3.5-5.0); ALBUMIN/GLOBULIN RATIO 0.7 (0.8-2.0); ANION GAP 17.3 mmol/L (8-16); CALCIUM 8.9 mg/dL (8.4-10.2); CREATININE, SERUM 1.65 mg/dL (0.72-1.25); POTASSIUM 4.3 mmol/L (3.5-5.1)
[2021-04-16] MEDS ORDERED: Vancomycin IV 1 GM in SODIUM CHLORIDE 0.9% 250ML 250 ML IV STA (16:20)
[2021-04-16] MEDS ORDERED: SODIUM CHLORIDE 0.9% 250ML 250 ML IV ONE (16:30)
[2021-04-16 17:54] LABS: CLARITY,URINE SL CLOUDY (CLEAR); COLOR,URINE YELLOW (YELLOW); KETONES,URINE NEGATIVE (NEGATIVE); LEUKOCYTE ESTERASE ,URINE TRACE (NEGATIVE); NITRITE,URINE NEGATIVE (NEGATIVE); PROTEIN,URINE DIPSTICK 1+ (NEGATIVE); URINE UROBILINOGEN 0.2 mg/dL (0.2 - 1)
[2021-04-16] MEDS: CEFEPIME 2 GM in SODIUM CHLORIDE 0.9% 100 ML IV SCH (18:00)
[2021-04-16 18:05] LABS: WBC,URINE (MAN) 0-5 /HPF (0-5)
[2021-04-16 19:35] VITALS: BP 128/55
[2021-04-16] MEDS ORDERED: SODIUM CHLORIDE 0.9% 250ML 250 ML ONE (20:55)
[2021-04-16] MEDS: PANTOPRAZOLE SOD 40 MG TABEC PO SCH (21:00)
[2021-04-16] MEDS: SALMETEROL/FLUTICASONE 250/50 INH SCH (21:00)
[2021-04-16] MEDS: ATORVASTATIN 10 MG TAB PO SCH (21:00)
[2021-04-16 22:00] VITALS: BP 128/55
[2021-04-17] VITALS (8 sets, daily range): BP systolic 113–222; BP diastolic 41–88
[2021-04-17] MEDS ORDERED: CLONIDINE HCL 0.1 MG TAB PO PRN (01:00)
[2021-04-17] MEDS ORDERED: HYDRALAZINE HCL 20 MG/ML VIAL IV PRN (01:00)
[2021-04-17] MEDS ORDERED: FUROSEMIDE INJ 10 MG/ML 2 ML VIAL IV ONE ×2 (01:00→07:30)
[2021-04-17] MEDS ORDERED: ONDANSETRON HCL INJ 2MG/ML 2ML 2 MG/ML VIAL IV PRN (01:00)
[2021-04-17] MEDS ORDERED: FUROSEMIDE INJ 10 MG/ML 4 ML VIAL ONE (01:08)
[2021-04-17] MEDS: CEFEPIME 2 GM in SODIUM CHLORIDE 0.9% 100 ML IV SCH ×2 (05:10→17:00)
[2021-04-17] MEDS: ACETAMINOPHEN 325 MG TAB PO PRN (05:11)
[2021-04-17 05:40] LABS: BASOPHILS # (AUTO) 0.1 (0.0-0.1); BASOPHILS % 0.6 % (0.0-1.0); EOSINOPHILS # (AUTO) 0.1 (0.0-0.4); EOSINOPHILS % 0.5 % (0.0-6.0); HEMATOCRIT 23.8 % (38.2-49.6); HEMOGLOBIN 7.2 g/dL (14.0-18.0); LYMPHOCYTES # (AUTO) 1.2 (1.0-3.2); LYMPHOCYTES % 7.9 % (18.0-39.1); MEAN CORPUSCULAR HEMOGLOBIN 25.6 pg (28-32); MEAN CORPUSCULAR HGB CONC 30.3 g/dL (31-35); MEAN CORPUSCULAR VOLUME 84.7 fL (81-99); MONOCYTES # (AUTO) 2.1 (0.2-0.8); NEUTROPHILS # (AUTO) 11.2 (2.1-6.9); NEUTROPHILS % 76.1 % (38.7-80.0); PLATELET COUNT 172 x10e3/uL (140-360); RED BLOOD COUNT 2.81 x10e6/uL (4.3-5.7)
[2021-04-17 06:07] LABS: ALBUMIN 2.7 g/dL (3.5-5.0); ALBUMIN/GLOBULIN RATIO 0.7 (0.8-2.0); ANION GAP 15.2 mmol/L (8-16); CALCIUM 8.8 mg/dL (8.4-10.2); CREATININE, SERUM 1.59 mg/dL (0.72-1.25); POTASSIUM 4.2 mmol/L (3.5-5.1)
[2021-04-17 06:22] LABS: THYROID STIMULATING HORMONE 0.942 uIU/mL (0.350-4.940)
[2021-04-17 07:24] LABS: % IRON SATURATION 2 % (15-50); IRON 5 ug/dL (65-175); TOTAL IRON BINDING CAPACITY 263 ug/dL (261-478); TRANSFERRIN 188 mg/dL (174-364)
[2021-04-17] MEDS ORDERED: ASPIRIN 81 MG CHEW TAB PO ONE (07:30)
[2021-04-17 07:31] LABS: CREATINE KINASE MB 0.9 ng/mL (0-5.0)
[2021-04-17] MEDS: METOPROLOL SUCCINATE 50 MG TAB XL PO SCH (08:40)
[2021-04-17] MEDS: POTASSIUM CHLORIDE 10MEQ EA PO SCH (08:40)
[2021-04-17] MEDS: DOCUSATE SODIUM 100 MG CAP PO SCH ×2 (08:40→15:52)
[2021-04-17] MEDS: METOLAZONE 5 MG TAB PO SCH (08:40)
[2021-04-17] MEDS: ALLOPURINOL 300 MG TAB PO SCH (08:40)
[2021-04-17] MEDS ORDERED: RIVAROXABAN 10 MG TABLET PO SCH (09:00)
[2021-04-17] MEDS ORDERED: SODIUM CHLORIDE 0.9% 250ML 250 ML ONE (15:30)
[2021-04-17] MEDS: FUROSEMIDE INJ 10 MG/ML 2 ML VIAL IV SCH (15:52)
[2021-04-17] MEDS: PANTOPRAZOLE SOD 40 MG TABEC PO SCH (22:08)
[2021-04-17] MEDS: ATORVASTATIN 10 MG TAB PO SCH (22:08)
[2021-04-18] VITALS (7 sets, daily range): BP systolic 147–162; BP diastolic 57–69
[2021-04-18] MEDS: CEFEPIME 2 GM in SODIUM CHLORIDE 0.9% 100 ML IV SCH ×2 (06:06→17:18)
[2021-04-18 06:20] LABS: BASOPHILS # (AUTO) 0.1 (0.0-0.1); BASOPHILS % 0.5 % (0.0-1.0); EOSINOPHILS # (AUTO) 0.2 (0.0-0.4); EOSINOPHILS % 1.5 % (0.0-6.0); HEMATOCRIT 21.6 % (38.2-49.6); LYMPHOCYTES # (AUTO) 0.8 (1.0-3.2); LYMPHOCYTES % 5.7 % (18.0-39.1); MEAN CORPUSCULAR HEMOGLOBIN 25.9 pg (28-32); MEAN CORPUSCULAR HGB CONC 30.6 g/dL (31-35); MEAN CORPUSCULAR VOLUME 84.7 fL (81-99); MONOCYTES # (AUTO) 1.8 (0.2-0.8); MONOCYTES % 13.3 % (4.4-11.3); NEUTROPHILS # (AUTO) 10.6 (2.1-6.9); NEUTROPHILS % 77.7 % (38.7-80.0); PLATELET COUNT 192 x10e3/uL (140-360); RED BLOOD COUNT 2.55 x10e6/uL (4.3-5.7); RED CELL DISTRIBUTION WIDTH 18.3 % (11.7-14.4)
[2021-04-18 06:27] LABS: HEMOGLOBIN 6.6 g/dL (14.0-18.0)
[2021-04-18 06:38] LABS: ALBUMIN 2.6 g/dL (3.5-5.0); ALBUMIN/GLOBULIN RATIO 0.7 (0.8-2.0); ANION GAP 14.2 mmol/L (8-16); CALCIUM 8.8 mg/dL (8.4-10.2); CREATININE, SERUM 1.59 mg/dL (0.72-1.25); POTASSIUM 4.2 mmol/L (3.5-5.1)
[2021-04-18] MEDS: SALMETEROL/FLUTICASONE 250/50 INH SCH ×2 (07:50→20:43)
[2021-04-18] MEDS ORDERED: SODIUM CHLORIDE 0.9% 250ML 250 ML IV ONE (08:00)
[2021-04-18] MEDS ORDERED: FUROSEMIDE INJ 10 MG/ML 4 ML VIAL IV ONE (08:00)
[2021-04-18] MEDS: CYANOCOBALAMIN INJ 1,000 MCG/ML VIAL IM SCH (09:02)
[2021-04-18] MEDS: FUROSEMIDE INJ 10 MG/ML 2 ML VIAL IV SCH ×2 (09:02→17:18)
[2021-04-18] MEDS: ALLOPURINOL 300 MG TAB PO SCH (09:03)
[2021-04-18] MEDS: METOLAZONE 5 MG TAB PO SCH (09:03)
[2021-04-18] MEDS: DOCUSATE SODIUM 100 MG CAP PO SCH ×2 (09:03→17:18)
[2021-04-18] MEDS: METOPROLOL SUCCINATE 50 MG TAB XL PO SCH (09:03)
[2021-04-18] MEDS: POTASSIUM CHLORIDE 10MEQ EA PO SCH ×2 (09:50→11:22)
[2021-04-18] MEDS: BALSAM PERU/CASTOR OIL 60 GM OINT...G. TP SCH (09:55)
[2021-04-18] MEDS ORDERED: DEXTROSE 50% SYRINGE 50 ML IV PRN (12:00)
[2021-04-18] MEDS ORDERED: FUROSEMIDE INJ 10 MG/ML 4 ML VIAL ONE (13:11)
[2021-04-18] MEDS ORDERED: SODIUM CHLORIDE 0.9% 250ML 250 ML ONE (13:16)
[2021-04-18] MEDS: IRON SUCROSE 100 MG in SODIUM CHLORIDE 0.9% 100 ML 100 ML IV SCH (13:30)
[2021-04-18] MEDS: INSULIN LISPRO 100 UNIT/1 ML 3ML VIAL SQ SCH ×3 (13:35→20:42)
[2021-04-18] MEDS ORDERED: CYANOCOBALAMIN INJ 1,000 MCG/ML VIAL IM SCH (20:00)
[2021-04-18] MEDS: ATORVASTATIN 10 MG TAB PO SCH (20:43)
[2021-04-18] MEDS: PANTOPRAZOLE SOD 40 MG TABEC PO SCH (20:43)
[2021-04-19] VITALS (7 sets, daily range): BP systolic 134–167; BP diastolic 57–62
[2021-04-19] MEDS: CEFEPIME 2 GM in SODIUM CHLORIDE 0.9% 100 ML IV SCH ×2 (05:09→17:33)
[2021-04-19 06:53] LABS: BASOPHILS # (AUTO) 0.1 (0.0-0.1); BASOPHILS % 0.5 % (0.0-1.0); EOSINOPHILS # (AUTO) 0.3 (0.0-0.4); EOSINOPHILS % 2.4 % (0.0-6.0); HEMATOCRIT 23.8 % (38.2-49.6); HEMOGLOBIN 7.2 g/dL (14.0-18.0); LYMPHOCYTES # (AUTO) 0.8 (1.0-3.2); MEAN CORPUSCULAR HEMOGLOBIN 25.6 pg (28-32); MEAN CORPUSCULAR HGB CONC 30.3 g/dL (31-35); MEAN CORPUSCULAR VOLUME 84.7 fL (81-99); MONOCYTES # (AUTO) 1.5 (0.2-0.8); MONOCYTES % 11.8 % (4.4-11.3); NEUTROPHILS # (AUTO) 9.9 (2.1-6.9); NEUTROPHILS % 77.3 % (38.7-80.0); PLATELET COUNT 206 x10e3/uL (140-360); RED BLOOD COUNT 2.81 x10e6/uL (4.3-5.7)
[2021-04-19 07:15] LABS: ALBUMIN 2.6 g/dL (3.5-5.0); ALBUMIN/GLOBULIN RATIO 0.7 (0.8-2.0); CALCIUM 8.9 mg/dL (8.4-10.2); CREATININE, SERUM 1.59 mg/dL (0.72-1.25)
[2021-04-19] MEDS: INSULIN LISPRO 100 UNIT/1 ML 3ML VIAL SQ SCH ×4 (07:30→21:00)
[2021-04-19] MEDS: SALMETEROL/FLUTICASONE 250/50 INH SCH ×2 (07:45→21:30)
[2021-04-19] MEDS: DOCUSATE SODIUM 100 MG CAP PO SCH ×2 (08:54→17:33)
[2021-04-19] MEDS: METOLAZONE 5 MG TAB PO SCH (08:54)
[2021-04-19] MEDS: ALLOPURINOL 300 MG TAB PO SCH (08:54)
[2021-04-19] MEDS: METOPROLOL SUCCINATE 50 MG TAB XL PO SCH (08:54)
[2021-04-19] MEDS: BALSAM PERU/CASTOR OIL 60 GM OINT...G. TP SCH (08:55)
[2021-04-19] MEDS: CYANOCOBALAMIN INJ 1,000 MCG/ML VIAL IM SCH (09:00)
[2021-04-19] MEDS: POTASSIUM CHLORIDE 10MEQ EA PO SCH (09:00)
[2021-04-19] MEDS ORDERED: IRON SUCROSE 100 MG in SODIUM CHLORIDE 0.9% 100 ML 100 ML IV SCH (09:00)
[2021-04-19] MEDS: FUROSEMIDE INJ 10 MG/ML 2 ML VIAL IV SCH ×2 (10:00→17:33)
[2021-04-19] MEDS: IRON SUCROSE 100 MG in SODIUM CHLORIDE 0.9% 100 ML 100 ML IV SCH (10:00)
[2021-04-19] MEDS: DIPHENHYDRAMINE HCL 25 MG CAP PO PRN (18:01)
[2021-04-19] MEDS: ATORVASTATIN 10 MG TAB PO SCH (21:00)
[2021-04-19] MEDS: PANTOPRAZOLE SOD 40 MG TABEC PO SCH (21:00)
[2021-04-20] VITALS (8 sets, daily range): BP systolic 136–157; BP diastolic 53–82
[2021-04-20] MEDS: CEFEPIME 2 GM in SODIUM CHLORIDE 0.9% 100 ML IV SCH ×2 (06:00→18:00)
[2021-04-20] MEDS: INSULIN LISPRO 100 UNIT/1 ML 3ML VIAL SQ SCH ×4 (07:30→21:00)
[2021-04-20 07:31] LABS: BASOPHILS # (AUTO) 0.1 (0.0-0.1); BASOPHILS % 0.5 % (0.0-1.0); EOSINOPHILS # (AUTO) 0.4 (0.0-0.4); EOSINOPHILS % 3.4 % (0.0-6.0); HEMOGLOBIN 7.1 g/dL (14.0-18.0); LYMPHOCYTES # (AUTO) 0.8 (1.0-3.2); LYMPHOCYTES % 6.7 % (18.0-39.1); MEAN CORPUSCULAR HEMOGLOBIN 26.2 pg (28-32); MEAN CORPUSCULAR HGB CONC 30.9 g/dL (31-35); MEAN CORPUSCULAR VOLUME 84.9 fL (81-99); MONOCYTES # (AUTO) 1.3 (0.2-0.8); MONOCYTES % 10.2 % (4.4-11.3); NEUTROPHILS # (AUTO) 9.1 (2.1-6.9); NEUTROPHILS % 74.5 % (38.7-80.0); PLATELET COUNT 269 x10e3/uL (140-360); RED BLOOD COUNT 2.71 x10e6/uL (4.3-5.7); RED CELL DISTRIBUTION WIDTH 18.5 % (11.7-14.4)
[2021-04-20 07:35] LABS: ANION GAP 12.9 mmol/L (8-16); CALCIUM 8.9 mg/dL (8.4-10.2); CREATININE, SERUM 1.58 mg/dL (0.72-1.25); POTASSIUM 3.9 mmol/L (3.5-5.1)
[2021-04-20] MEDS: SALMETEROL/FLUTICASONE 250/50 INH SCH ×2 (07:50→20:30)
[2021-04-20] MEDS: CYANOCOBALAMIN INJ 1,000 MCG/ML VIAL IM SCH (08:17)
[2021-04-20] MEDS: METOLAZONE 5 MG TAB PO SCH (08:17)
[2021-04-20] MEDS: POTASSIUM CHLORIDE 10MEQ EA PO SCH (08:17)
[2021-04-20] MEDS: FUROSEMIDE INJ 10 MG/ML 2 ML VIAL IV SCH ×2 (08:17→16:11)
[2021-04-20] MEDS: BALSAM PERU/CASTOR OIL 60 GM OINT...G. TP SCH (08:17)
[2021-04-20] MEDS: ALLOPURINOL 300 MG TAB PO SCH (08:17)
[2021-04-20] MEDS: DOCUSATE SODIUM 100 MG CAP PO SCH ×2 (08:17→16:11)
[2021-04-20] MEDS: METOPROLOL SUCCINATE 50 MG TAB XL PO SCH (08:18)
[2021-04-20] MEDS: IRON SUCROSE 100 MG in SODIUM CHLORIDE 0.9% 100 ML 100 ML IV SCH (10:00)
[2021-04-20] MEDS: PANTOPRAZOLE SOD 40 MG TABEC PO SCH (21:00)
[2021-04-20] MEDS: ATORVASTATIN 10 MG TAB PO SCH (21:00)
[2021-04-21] VITALS (8 sets, daily range): BP systolic 132–154; BP diastolic 50–76
[2021-04-21] MEDS: CEFEPIME 2 GM in SODIUM CHLORIDE 0.9% 100 ML IV SCH ×2 (05:58→18:05)
[2021-04-21 06:14] LABS: BASOPHILS # (AUTO) 0.1 (0.0-0.1); BASOPHILS % 0.7 % (0.0-1.0); EOSINOPHILS # (AUTO) 0.6 (0.0-0.4); EOSINOPHILS % 4.9 % (0.0-6.0); HEMATOCRIT 23.7 % (38.2-49.6); HEMOGLOBIN 7.2 g/dL (14.0-18.0); LYMPHOCYTES # (AUTO) 0.9 (1.0-3.2); LYMPHOCYTES % 7.9 % (18.0-39.1); MEAN CORPUSCULAR HEMOGLOBIN 25.7 pg (28-32); MEAN CORPUSCULAR HGB CONC 30.4 g/dL (31-35); MEAN CORPUSCULAR VOLUME 84.6 fL (81-99); MONOCYTES # (AUTO) 1.2 (0.2-0.8); MONOCYTES % 10.2 % (4.4-11.3); NEUTROPHILS # (AUTO) 8.2 (2.1-6.9); NEUTROPHILS % 72.3 % (38.7-80.0); PLATELET COUNT 285 x10e3/uL (140-360); RED CELL DISTRIBUTION WIDTH 18.9 % (11.7-14.4)
[2021-04-21 07:05] LABS: ALBUMIN 2.5 g/dL (3.5-5.0); ALBUMIN/GLOBULIN RATIO 0.6 (0.8-2.0); ANION GAP 14.6 mmol/L (8-16); CALCIUM 9.1 mg/dL (8.4-10.2); CREATININE, SERUM 1.42 mg/dL (0.72-1.25); MAGNESIUM 1.8 MG/DL (1.3-2.1); POTASSIUM 3.6 mmol/L (3.5-5.1)
[2021-04-21] MEDS: INSULIN LISPRO 100 UNIT/1 ML 3ML VIAL SQ SCH ×4 (07:30→20:49)
[2021-04-21] MEDS: DOCUSATE SODIUM 100 MG CAP PO SCH ×2 (09:00→18:05)
[2021-04-21] MEDS: BALSAM PERU/CASTOR OIL 60 GM OINT...G. TP SCH (09:00)
[2021-04-21 09:04] LABS: INR 1.21; PROTHROMBIN TIME 15.6 seconds (11.9-14.5)
[2021-04-21] MEDS: FUROSEMIDE INJ 10 MG/ML 2 ML VIAL IV SCH ×2 (09:28→18:05)
[2021-04-21] MEDS: CYANOCOBALAMIN INJ 1,000 MCG/ML VIAL IM SCH (09:28)
[2021-04-21] MEDS: IRON SUCROSE 100 MG in SODIUM CHLORIDE 0.9% 100 ML 100 ML IV SCH (10:06)
[2021-04-21] MEDS: SALMETEROL/FLUTICASONE 250/50 INH SCH ×2 (10:10→19:43)
[2021-04-21] MEDS ORDERED: PROPOFOL IV EMULSION 10 MG/ML 20 ML VIAL ONE (12:04)
[2021-04-21] MEDS ORDERED: LIDOCAINE HCL 2% LOCAL INJ 5 ML SDV VIAL INJ ONE (12:04)
[2021-04-21] MEDS: POTASSIUM CHLORIDE 10MEQ EA PO SCH (18:04)
[2021-04-21] MEDS: ALLOPURINOL 300 MG TAB PO SCH (18:05)
[2021-04-21] MEDS: METOLAZONE 5 MG TAB PO SCH (18:05)
[2021-04-21] MEDS: METOPROLOL SUCCINATE 50 MG TAB XL PO SCH (18:05)
[2021-04-21] MEDS: PANTOPRAZOLE SOD 40 MG TABEC PO SCH (20:50)
[2021-04-21] MEDS: ATORVASTATIN 10 MG TAB PO SCH (20:50)
[2021-04-22] VITALS (8 sets, daily range): BP systolic 123–155; BP diastolic 42–76
[2021-04-22] MEDS: CEFEPIME 2 GM in SODIUM CHLORIDE 0.9% 100 ML IV SCH ×2 (05:14→18:00)
[2021-04-22] MEDS ORDERED: HEPARIN SOD (PORCINE) 1000 UNIT/ML SDV ONE (07:55)
[2021-04-22] MEDS: INSULIN LISPRO 100 UNIT/1 ML 3ML VIAL SQ SCH ×4 (08:15→20:37)
[2021-04-22] MEDS: DOCUSATE SODIUM 100 MG CAP PO SCH ×2 (09:50→17:27)
[2021-04-22] MEDS: POTASSIUM CHLORIDE 10MEQ EA PO SCH (09:50)
[2021-04-22] MEDS: FUROSEMIDE INJ 10 MG/ML 2 ML VIAL IV SCH ×2 (09:50→17:27)
[2021-04-22] MEDS: CYANOCOBALAMIN INJ 1,000 MCG/ML VIAL IM SCH (09:50)
[2021-04-22] MEDS: METOLAZONE 5 MG TAB PO SCH (09:50)
[2021-04-22] MEDS: ALLOPURINOL 300 MG TAB PO SCH (09:50)
[2021-04-22] MEDS: METOPROLOL SUCCINATE 50 MG TAB XL PO SCH (09:50)
[2021-04-22] MEDS: IRON SUCROSE 100 MG in SODIUM CHLORIDE 0.9% 100 ML 100 ML IV SCH (09:50)
[2021-04-22] MEDS: BALSAM PERU/CASTOR OIL 60 GM OINT...G. TP SCH (09:50)
[2021-04-22] MEDS: SALMETEROL/FLUTICASONE 250/50 INH SCH ×2 (11:25→20:25)
[2021-04-22] MEDS: PANTOPRAZOLE SOD 40 MG TABEC PO SCH (20:41)
[2021-04-22] MEDS: ATORVASTATIN 10 MG TAB PO SCH (20:41)
[2021-04-22] MEDS ORDERED: BISACODYL 5 MG TAB EC PO ONE (23:45)
[2021-04-23] VITALS (8 sets, daily range): BP systolic 140–165; BP diastolic 66–74
[2021-04-23] MEDS ORDERED: BISACODYL 5 MG TAB EC PO ONE ×2 (00:02→00:15)
[2021-04-23] MEDS ORDERED: CITRATE OF MAGNESIA 300ML BOTTLE PO ONE ×2 (05:00→07:00)
[2021-04-23] MEDS: CEFEPIME 2 GM in SODIUM CHLORIDE 0.9% 100 ML IV SCH ×2 (05:23→16:59)
[2021-04-23 05:31] LABS: BASOPHILS # (AUTO) 0.1 (0.0-0.1); BASOPHILS % 0.5 % (0.0-1.0); EOSINOPHILS # (AUTO) 0.7 (0.0-0.4); EOSINOPHILS % 6.2 % (0.0-6.0); HEMATOCRIT 27.9 % (38.2-49.6); HEMOGLOBIN 8.3 g/dL (14.0-18.0); LYMPHOCYTES % 8.5 % (18.0-39.1); MEAN CORPUSCULAR HEMOGLOBIN 25.8 pg (28-32); MEAN CORPUSCULAR HGB CONC 29.7 g/dL (31-35); MEAN CORPUSCULAR VOLUME 86.6 fL (81-99); MONOCYTES # (AUTO) 1.1 (0.2-0.8); MONOCYTES % 9.4 % (4.4-11.3); NEUTROPHILS # (AUTO) 8.3 (2.1-6.9); NEUTROPHILS % 73.5 % (38.7-80.0); PLATELET COUNT 316 x10e3/uL (140-360); RED BLOOD COUNT 3.22 x10e6/uL (4.3-5.7); RED CELL DISTRIBUTION WIDTH 19.9 % (11.7-14.4)
[2021-04-23 06:02] LABS: ALBUMIN 2.5 g/dL (3.5-5.0); ALBUMIN/GLOBULIN RATIO 0.6 (0.8-2.0); ANION GAP 14.6 mmol/L (8-16); CALCIUM 8.7 mg/dL (8.4-10.2); CREATININE, SERUM 1.32 mg/dL (0.72-1.25); POTASSIUM 3.6 mmol/L (3.5-5.1)
[2021-04-23] MEDS: INSULIN LISPRO 100 UNIT/1 ML 3ML VIAL SQ SCH ×4 (07:30→19:53)
[2021-04-23] MEDS: DOCUSATE SODIUM 100 MG CAP PO SCH ×2 (08:32→16:59)
[2021-04-23] MEDS: POTASSIUM CHLORIDE 10MEQ EA PO SCH (08:33)
[2021-04-23] MEDS: METOPROLOL SUCCINATE 50 MG TAB XL PO SCH (08:34)
[2021-04-23] MEDS: METOLAZONE 5 MG TAB PO SCH (08:34)
[2021-04-23] MEDS: ALLOPURINOL 300 MG TAB PO SCH (08:34)
[2021-04-23] MEDS: FUROSEMIDE INJ 10 MG/ML 2 ML VIAL IV SCH ×2 (08:39→16:59)
[2021-04-23] MEDS: CYANOCOBALAMIN INJ 1,000 MCG/ML VIAL IM SCH (08:39)
[2021-04-23] MEDS: IRON SUCROSE 100 MG in SODIUM CHLORIDE 0.9% 100 ML 100 ML IV SCH (08:40)
[2021-04-23] MEDS: SALMETEROL/FLUTICASONE 250/50 INH SCH ×2 (09:00→19:30)
[2021-04-23] MEDS: BALSAM PERU/CASTOR OIL 60 GM OINT...G. TP SCH (15:49)
[2021-04-23 16:39] LABS: ABG HCO3 29 mmol/L (22-26); ABG PCO2 35 mmHg (35-45); ABG PH 7.53 (7.35-7.45); ABG PO2 59 mmHg (80-105); ABG TCO2 30
[2021-04-23] MEDS: ATORVASTATIN 10 MG TAB PO SCH (20:02)
[2021-04-23] MEDS: ACETAMINOPHEN 325 MG TAB PO PRN (20:02)
[2021-04-23] MEDS: DIPHENHYDRAMINE HCL 25 MG CAP PO PRN (20:02)
[2021-04-23] MEDS: PANTOPRAZOLE SOD 40 MG TABEC PO SCH (20:02)
[2021-04-24] VITALS (8 sets, daily range): BP systolic 148–169; BP diastolic 50–78
[2021-04-24 02:49] LABS: ABG PCO2 38 mmHg (35-45); ABG PH 7.51 (7.35-7.45)
[2021-04-24 02:50] LABS: ABG HCO3 30 mmol/L (22-26); ABG PO2 149 mmHg (80-105); ABG TCO2 31
[2021-04-24] MEDS: CEFEPIME 2 GM in SODIUM CHLORIDE 0.9% 100 ML IV SCH ×2 (05:00→15:53)
[2021-04-24] MEDS ORDERED: POTASSIUM CHLORIDE 20 MEQ TAB CR PO STA (05:28)
[2021-04-24] MEDS: SALMETEROL/FLUTICASONE 250/50 INH SCH ×2 (07:48→19:45)
[2021-04-24] MEDS: BALSAM PERU/CASTOR OIL 60 GM OINT...G. TP SCH (09:00)
[2021-04-24] MEDS: DOCUSATE SODIUM 100 MG CAP PO SCH ×2 (09:10→15:53)
[2021-04-24] MEDS: INSULIN LISPRO 100 UNIT/1 ML 3ML VIAL SQ SCH ×4 (09:10→21:00)
[2021-04-24] MEDS: POTASSIUM CHLORIDE 10MEQ EA PO SCH (09:11)
[2021-04-24] MEDS: ALLOPURINOL 300 MG TAB PO SCH (09:12)
[2021-04-24] MEDS: METOPROLOL SUCCINATE 50 MG TAB XL PO SCH (09:12)
[2021-04-24] MEDS: METOLAZONE 5 MG TAB PO SCH (09:12)
[2021-04-24] MEDS: FUROSEMIDE INJ 10 MG/ML 2 ML VIAL IV SCH ×2 (09:13→15:53)
[2021-04-24] MEDS: IRON SUCROSE 100 MG in SODIUM CHLORIDE 0.9% 100 ML 100 ML IV SCH (09:16)
[2021-04-24] MEDS: CYANOCOBALAMIN INJ 1,000 MCG/ML VIAL IM SCH (09:16)
[2021-04-24] MEDS: ATORVASTATIN 10 MG TAB PO SCH (20:48)
[2021-04-24] MEDS: PANTOPRAZOLE SOD 40 MG TABEC PO SCH (20:48)
[2021-04-25] VITALS (8 sets, daily range): BP systolic 126–156; BP diastolic 48–70
[2021-04-25] MEDS: ACETAMINOPHEN 325 MG TAB PO PRN (04:00)
[2021-04-25] MEDS: CEFEPIME 2 GM in SODIUM CHLORIDE 0.9% 100 ML IV SCH ×2 (05:07→17:33)
[2021-04-25 05:46] LABS: BASOPHILS # (AUTO) 0.1 (0.0-0.1); BASOPHILS % 0.5 % (0.0-1.0); EOSINOPHILS # (AUTO) 0.9 (0.0-0.4); EOSINOPHILS % 7.6 % (0.0-6.0); HEMATOCRIT 28.7 % (38.2-49.6); HEMOGLOBIN 8.7 g/dL (14.0-18.0); LYMPHOCYTES # (AUTO) 1.2 (1.0-3.2); LYMPHOCYTES % 9.6 % (18.0-39.1); MEAN CORPUSCULAR HGB CONC 30.3 g/dL (31-35); MEAN CORPUSCULAR VOLUME 85.7 fL (81-99); MONOCYTES # (AUTO) 0.9 (0.2-0.8); MONOCYTES % 7.5 % (4.4-11.3); NEUTROPHILS # (AUTO) 8.9 (2.1-6.9); NEUTROPHILS % 73.6 % (38.7-80.0); PLATELET COUNT 352 x10e3/uL (140-360); RED BLOOD COUNT 3.35 x10e6/uL (4.3-5.7)
[2021-04-25 06:13] LABS: ALBUMIN 2.6 g/dL (3.5-5.0); ALBUMIN/GLOBULIN RATIO 0.7 (0.8-2.0); ANION GAP 14.4 mmol/L (8-16); CALCIUM 8.5 mg/dL (8.4-10.2); CREATININE, SERUM 1.39 mg/dL (0.72-1.25); MAGNESIUM 1.8 MG/DL (1.3-2.1); POTASSIUM 3.4 mmol/L (3.5-5.1)
[2021-04-25] MEDS: SALMETEROL/FLUTICASONE 250/50 INH SCH ×2 (07:03→20:30)
[2021-04-25] MEDS: INSULIN LISPRO 100 UNIT/1 ML 3ML VIAL SQ SCH ×4 (07:30→21:00)
[2021-04-25 08:43] LABS: ANISOCYTOSIS SLIG; EOSINOPHILS % (MANUAL) 2 % (0-7); LYMPHOCYTES % (MANUAL) 14 % (19-48); MONOCYTES % (MANUAL) 6 % (3.4-9.0); NEUTROPHILS % (MANUAL) 77 % (40-74); PLATELET ESTIMATE ADEQUATE; PLATELET MORPHOLOGY COMMENT NORMAL; POIKILOCYTOSIS SLIGHT; RBC MORPHOLOGY COMMENT NORMAL
[2021-04-25] MEDS: CYANOCOBALAMIN INJ 1,000 MCG/ML VIAL IM SCH (09:00)
[2021-04-25] MEDS: FUROSEMIDE INJ 10 MG/ML 2 ML VIAL IV SCH ×2 (09:00→17:33)
[2021-04-25] MEDS: IRON SUCROSE 100 MG in SODIUM CHLORIDE 0.9% 100 ML 100 ML IV SCH (09:00)
[2021-04-25] MEDS: METOLAZONE 5 MG TAB PO SCH (09:00)
[2021-04-25] MEDS: DOCUSATE SODIUM 100 MG CAP PO SCH ×2 (09:00→17:33)
[2021-04-25] MEDS: AMLODIPINE BESYLATE 5 MG TAB PO SCH (09:00)
[2021-04-25] MEDS: ALLOPURINOL 300 MG TAB PO SCH (09:00)
[2021-04-25] MEDS: METOPROLOL SUCCINATE 50 MG TAB XL PO SCH (09:00)
[2021-04-25] MEDS: POTASSIUM CHLORIDE 10MEQ EA PO SCH (09:29)
[2021-04-25] MEDS: BALSAM PERU/CASTOR OIL 60 GM OINT...G. TP SCH (12:00)
[2021-04-25] MEDS: DIPHENHYDRAMINE HCL 25 MG CAP PO PRN (13:20)
[2021-04-25] MEDS: ATORVASTATIN 10 MG TAB PO SCH (21:54)
[2021-04-25] MEDS: PANTOPRAZOLE SOD 40 MG TABEC PO SCH (21:54)
[2021-04-26] VITALS (8 sets, daily range): BP systolic 126–153; BP diastolic 53–101
[2021-04-26] MEDS: CEFEPIME 2 GM in SODIUM CHLORIDE 0.9% 100 ML IV SCH (06:00)
[2021-04-26] MEDS: INSULIN LISPRO 100 UNIT/1 ML 3ML VIAL SQ SCH ×4 (07:30→21:14)
[2021-04-26] MEDS: SALMETEROL/FLUTICASONE 250/50 INH SCH ×2 (09:40→21:00)
[2021-04-26] MEDS: METOLAZONE 5 MG TAB PO SCH (09:53)
[2021-04-26] MEDS: AMLODIPINE BESYLATE 5 MG TAB PO SCH (09:53)
[2021-04-26] MEDS: METOPROLOL SUCCINATE 50 MG TAB XL PO SCH (09:53)
[2021-04-26] MEDS: CYANOCOBALAMIN INJ 1,000 MCG/ML VIAL IM SCH (09:53)
[2021-04-26] MEDS: FUROSEMIDE INJ 10 MG/ML 2 ML VIAL IV SCH ×2 (09:53→17:10)
[2021-04-26] MEDS: DOCUSATE SODIUM 100 MG CAP PO SCH ×2 (09:53→17:10)
[2021-04-26] MEDS: ALLOPURINOL 300 MG TAB PO SCH (09:53)
[2021-04-26] MEDS: POTASSIUM CHLORIDE 10MEQ EA PO SCH (09:54)
[2021-04-26] MEDS: IRON SUCROSE 100 MG in SODIUM CHLORIDE 0.9% 100 ML 100 ML IV SCH (10:35)
[2021-04-26] MEDS: BALSAM PERU/CASTOR OIL 60 GM OINT...G. TP SCH (10:35)
[2021-04-26] MEDS: PANTOPRAZOLE SOD 40 MG TABEC PO SCH (21:08)
[2021-04-26] MEDS: ATORVASTATIN 10 MG TAB PO SCH (21:08)
[2021-04-27] VITALS (9 sets, daily range): BP systolic 103–165; BP diastolic 59–71
[2021-04-27] MEDS: INSULIN LISPRO 100 UNIT/1 ML 3ML VIAL SQ SCH ×4 (07:30→21:23)
[2021-04-27] MEDS: FUROSEMIDE INJ 10 MG/ML 2 ML VIAL IV SCH ×2 (09:03→17:03)
[2021-04-27] MEDS: AMLODIPINE BESYLATE 5 MG TAB PO SCH (09:03)
[2021-04-27] MEDS: POTASSIUM CHLORIDE 10MEQ EA PO SCH (09:03)
[2021-04-27] MEDS: CYANOCOBALAMIN INJ 1,000 MCG/ML VIAL IM SCH (09:03)
[2021-04-27] MEDS: DOCUSATE SODIUM 100 MG CAP PO SCH ×2 (09:03→17:03)
[2021-04-27] MEDS: BALSAM PERU/CASTOR OIL 60 GM OINT...G. TP SCH (09:03)
[2021-04-27] MEDS: METOLAZONE 5 MG TAB PO SCH (09:03)
[2021-04-27] MEDS: METOPROLOL SUCCINATE 50 MG TAB XL PO SCH (09:03)
[2021-04-27] MEDS: ALLOPURINOL 300 MG TAB PO SCH (09:03)
[2021-04-27] MEDS: SALMETEROL/FLUTICASONE 250/50 INH SCH ×2 (09:15→19:30)
[2021-04-27] MEDS: IRON SUCROSE 100 MG in SODIUM CHLORIDE 0.9% 100 ML 100 ML IV SCH (10:00)
[2021-04-27] MEDS: PANTOPRAZOLE SOD 40 MG TABEC PO SCH (21:23)
[2021-04-27] MEDS: ATORVASTATIN 10 MG TAB PO SCH (21:23)
[2021-04-28 01:28] VITALS: BP 147/69
[2021-04-28 05:15] VITALS: BP 167/70
[2021-04-28] MEDS: SALMETEROL/FLUTICASONE 250/50 INH SCH (08:56)
[2021-04-28] MEDS ORDERED: IRON SUCROSE 100 MG in SODIUM CHLORIDE 0.9% 100 ML 100 ML IV SCH (09:00)
[2021-04-28] MEDS ORDERED: CYANOCOBALAMIN INJ 1,000 MCG/ML VIAL IM SCH (09:00)
[2021-04-28 09:01] VITALS: BP 136/58
[2021-04-28] MEDS: POTASSIUM CHLORIDE 10MEQ EA PO SCH (09:17)
[2021-04-28] MEDS: FUROSEMIDE INJ 10 MG/ML 2 ML VIAL IV SCH (09:17)
[2021-04-28] MEDS: DOCUSATE SODIUM 100 MG CAP PO SCH (09:17)
[2021-04-28] MEDS: AMLODIPINE BESYLATE 5 MG TAB PO SCH (09:17)
[2021-04-28] MEDS: BALSAM PERU/CASTOR OIL 60 GM OINT...G. TP SCH (09:18)
[2021-04-28] MEDS: METOLAZONE 5 MG TAB PO SCH (09:18)
[2021-04-28] MEDS: ALLOPURINOL 300 MG TAB PO SCH (09:18)
[2021-04-28] MEDS: METOPROLOL SUCCINATE 50 MG TAB XL PO SCH (09:18)
== END 2021-04-28 11:15 | disposition home health service (06) | DRG 377 ==
LOC: ER 15:28 → ERHOLD 16:37 → MED/SURG3 19:23
PROVIDERS: ADMIT Internal Medicine; ATTEND Internal Medicine
PROC: 30233N1 Transfusion of Nonautologous Red Blood Cells into Peripheral Vein, Percutaneous Approach (ICD-10-PCS; 2021-04-18)
PROC: 0DJ08ZZ Inspection of Upper Intestinal Tract, Via Natural or Artificial Opening Endoscopic (ICD-10-PCS; principal; 2021-04-21 16:30)
DX: K29.71 Gastritis, unspecified, with bleeding (principal); I50.23 Acute on chronic systolic (congestive) heart failure; I13.0 Hypertensive heart and chronic kidney disease with heart failure and stage 1 through stage 4 chronic kidney disease, or unspecified chronic kidney disease; N17.9 Acute kidney failure, unspecified; D62 Acute posthemorrhagic anemia; E11.649 Type 2 diabetes mellitus with hypoglycemia without coma; T38.3X5A Adverse effect of insulin and oral hypoglycemic [antidiabetic] drugs, initial encounter; Z79.899 Other long term (current) drug therapy; Y92.009 Unspecified place in unspecified non-institutional (private) residence as the place of occurrence of the external cause; Z79.01 Long term (current) use of anticoagulants; Z95.2 Presence of prosthetic heart valve; Z95.0 Presence of cardiac pacemaker; I27.20 Pulmonary hypertension, unspecified; J98.6 Disorders of diaphragm; E66.01 Morbid (severe) obesity due to excess calories; Z68.35 Body mass index [BMI] 35.0-35.9, adult; I48.0 Paroxysmal atrial fibrillation; J44.9 Chronic obstructive pulmonary disease, unspecified; R09.02 Hypoxemia; I87.2 Venous insufficiency (chronic) (peripheral); N18.30 Chronic kidney disease, stage 3 unspecified; E11.22 Type 2 diabetes mellitus with diabetic chronic kidney disease
CPT/HCPCS: 36415; 36600; 43235; 71045; 71250; 74150; 78278; 80048; 80053; 81001; 82140; 82270; 82550; 82553; 82607; 82746; 82805; 82948; 83540; 83605; 83735; 83880; 84443; 84466; 84484; 85025; 85610; 86850; 86900; 86920; 87040; 93005; 93306; 94660; 94664; 96361; 99251; 99284; A9512; J0360; J0692; J1644; J1756; J1940; J2001; J2405; J3370; J3420; J7050; P9016; U0002

== ENCOUNTER 2021-06-24 17:02 | Inpatient (IN) | payer BC, MEDICARE ==
[~2021-06-24] VITALS: Ht 177.8 cm; Wt 110.9 kg
[2021-06-24 18:12] LABS: BASOPHILS # (AUTO) 0.1 (0.0-0.1); BASOPHILS % 0.5 % (0.0-1.0); EOSINOPHILS # (AUTO) 1.1 (0.0-0.4); EOSINOPHILS % 9.3 % (0.0-6.0); HEMATOCRIT 29.1 % (38.2-49.6); HEMOGLOBIN 9.2 g/dL (14.0-18.0); LYMPHOCYTES # (AUTO) 1.7 (1.0-3.2); LYMPHOCYTES % 14.4 % (18.0-39.1); MEAN CORPUSCULAR HEMOGLOBIN 28.4 pg (28-32); MEAN CORPUSCULAR HGB CONC 31.6 g/dL (31-35); MEAN CORPUSCULAR VOLUME 89.8 fL (81-99); MONOCYTES # (AUTO) 0.7 (0.2-0.8); MONOCYTES % 6.3 % (4.4-11.3); NEUTROPHILS # (AUTO) 8.1 (2.1-6.9); NEUTROPHILS % 68.2 % (38.7-80.0); PLATELET COUNT 254 x10e3/uL (140-360); RED BLOOD COUNT 3.24 x10e6/uL (4.3-5.7); RED CELL DISTRIBUTION WIDTH 15.5 % (11.7-14.4)
[2021-06-24 18:22] LABS: INR 1.54; PROTHROMBIN TIME 18.8 seconds (11.9-14.5)
[2021-06-24 18:23] LABS: PARTIAL THROMBOPLASTIN TIME 44.9 seconds (23.8-35.5)
[2021-06-24] MEDS: CEFEPIME 1 GM in SODIUM CHLORIDE 0.9% 50ML 50 ML IV SCH (18:30)
[2021-06-24 18:31] LABS: ALBUMIN 2.8 g/dL (3.5-5.0); ALBUMIN/GLOBULIN RATIO 0.7 (0.8-2.0); ANION GAP 14.6 mmol/L (8-16); CREATININE, SERUM 1.29 mg/dL (0.72-1.25); POTASSIUM 3.6 mmol/L (3.5-5.1)
[2021-06-24] MEDS ORDERED: MORPHINE SULFATE INJ 4 MG/ML INJ 1ML IV PRN (19:15)
[2021-06-24] MEDS ORDERED: DEXTROSE 50% SYRINGE 50 ML IV PRN (19:15)
[2021-06-24] MEDS ORDERED: ONDANSETRON HCL INJ 2MG/ML 2ML 2 MG/ML VIAL IV PRN (19:15)
[2021-06-24] MEDS ORDERED: SODIUM CHLORIDE FLUSH 10 ML SYR INJ PRN (19:15)
[2021-06-24] MEDS: Vancomycin IV 1 GM in SODIUM CHLORIDE 0.9% 250ML 250 ML IV SCH (19:26)
[2021-06-24] MEDS: INSULIN REGULAR, HUMAN 100 UNIT/1 ML SQ SCH (21:00)
[2021-06-24 22:07] VITALS: BP 168/75
[2021-06-24 22:16] VITALS: BP 168/75
[2021-06-24 22:59] VITALS: BP 168/75
[2021-06-25] VITALS (10 sets, daily range): BP systolic 90–169; BP diastolic 54–83
[2021-06-25 05:00] LABS: BASOPHILS # (AUTO) 0.1 (0.0-0.1); BASOPHILS % 0.5 % (0.0-1.0); EOSINOPHILS # (AUTO) 1.1 (0.0-0.4); EOSINOPHILS % 9.6 % (0.0-6.0); HEMATOCRIT 28.6 % (38.2-49.6); HEMOGLOBIN 9.2 g/dL (14.0-18.0); LYMPHOCYTES # (AUTO) 1.6 (1.0-3.2); LYMPHOCYTES % 14.4 % (18.0-39.1); MEAN CORPUSCULAR HEMOGLOBIN 28.4 pg (28-32); MEAN CORPUSCULAR HGB CONC 32.2 g/dL (31-35); MEAN CORPUSCULAR VOLUME 88.3 fL (81-99); MONOCYTES # (AUTO) 0.7 (0.2-0.8); MONOCYTES % 6.2 % (4.4-11.3); NEUTROPHILS # (AUTO) 7.4 (2.1-6.9); PLATELET COUNT 249 x10e3/uL (140-360); RED BLOOD COUNT 3.24 x10e6/uL (4.3-5.7); RED CELL DISTRIBUTION WIDTH 15.3 % (11.7-14.4)
[2021-06-25 05:24] LABS: ALBUMIN 2.7 g/dL (3.5-5.0); ALBUMIN/GLOBULIN RATIO 0.8 (0.8-2.0); ANION GAP 13.1 mmol/L (8-16); CALCIUM 7.8 mg/dL (8.4-10.2); CREATININE, SERUM 1.16 mg/dL (0.72-1.25); POTASSIUM 3.1 mmol/L (3.5-5.1)
[2021-06-25] MEDS: CEFEPIME 1 GM in SODIUM CHLORIDE 0.9% 50ML 50 ML IV SCH ×3 (06:00→21:36)
[2021-06-25] MEDS: Vancomycin IV 1 GM in SODIUM CHLORIDE 0.9% 250ML 250 ML IV SCH ×2 (06:30→18:08)
[2021-06-25] MEDS: INSULIN REGULAR, HUMAN 100 UNIT/1 ML SQ SCH ×4 (07:30→21:37)
[2021-06-25] MEDS: GLIMEPIRIDE 2 MG TAB PO SCH ×2 (09:58→16:28)
[2021-06-25] MEDS: ASPIRIN 81 MG CHEW TAB PO SCH (09:58)
[2021-06-25] MEDS: COLCHICINE 0.6 MG TAB PO SCH ×2 (09:58→16:29)
[2021-06-25] MEDS: DOCUSATE SODIUM 100 MG CAP PO SCH ×2 (09:58→16:28)
[2021-06-25] MEDS: ALLOPURINOL 300 MG TAB PO SCH (09:59)
[2021-06-25] MEDS: METOPROLOL SUCCINATE 50 MG TAB XL PO SCH (09:59)
[2021-06-25] MEDS: FUROSEMIDE 40 MG TAB PO SCH ×2 (09:59→16:29)
[2021-06-25] MEDS: METOLAZONE 5 MG TAB PO SCH (09:59)
[2021-06-25] MEDS: POTASSIUM CHLORIDE 10MEQ EA PO SCH (10:00)
[2021-06-25] MEDS: PANTOPRAZOLE SOD 40 MG TABEC PO SCH (20:47)
[2021-06-25] MEDS: ATORVASTATIN 10 MG TAB PO SCH (20:47)
[2021-06-26] VITALS (11 sets, daily range): BP systolic 138–167; BP diastolic 69–84
[2021-06-26] MEDS: CEFEPIME 1 GM in SODIUM CHLORIDE 0.9% 50ML 50 ML IV SCH ×3 (06:13→23:09)
[2021-06-26] MEDS: INSULIN REGULAR, HUMAN 100 UNIT/1 ML SQ SCH ×4 (07:30→21:41)
[2021-06-26] MEDS: Vancomycin IV 1 GM in SODIUM CHLORIDE 0.9% 250ML 250 ML IV SCH (08:29)
[2021-06-26] MEDS: GLIMEPIRIDE 2 MG TAB PO SCH ×2 (08:30→16:56)
[2021-06-26] MEDS: DOCUSATE SODIUM 100 MG CAP PO SCH ×2 (08:30→16:56)
[2021-06-26] MEDS: ASPIRIN 81 MG CHEW TAB PO SCH (08:30)
[2021-06-26] MEDS: POTASSIUM CHLORIDE 10MEQ EA PO SCH (08:31)
[2021-06-26] MEDS: METOPROLOL SUCCINATE 50 MG TAB XL PO SCH (08:31)
[2021-06-26] MEDS: METOLAZONE 5 MG TAB PO SCH (08:31)
[2021-06-26] MEDS: ALLOPURINOL 300 MG TAB PO SCH (08:31)
[2021-06-26] MEDS: FUROSEMIDE 40 MG TAB PO SCH ×2 (08:31→16:56)
[2021-06-26] MEDS: COLCHICINE 0.6 MG TAB PO SCH ×2 (08:31→16:56)
[2021-06-26] MEDS: COLLAGENASE 5 GM TUBE TP SCH (16:56)
[2021-06-26] MEDS: BALSAM PERU/CASTOR OIL 60 GM OINT...G. TP SCH (16:56)
[2021-06-26] MEDS: Vancomycin IV 1.25 GM in SODIUM CHLORIDE 0.9% 250ML 250 ML IV SCH (20:21)
[2021-06-26] MEDS: ATORVASTATIN 10 MG TAB PO SCH (21:12)
[2021-06-26] MEDS: PANTOPRAZOLE SOD 40 MG TABEC PO SCH (21:12)
[2021-06-27] VITALS (9 sets, daily range): BP systolic 139–161; BP diastolic 61–77
[2021-06-27] MEDS: CEFEPIME 1 GM in SODIUM CHLORIDE 0.9% 50ML 50 ML IV SCH ×2 (06:07→15:20)
[2021-06-27] MEDS: Vancomycin IV 1.25 GM in SODIUM CHLORIDE 0.9% 250ML 250 ML IV SCH ×2 (08:20→21:02)
[2021-06-27] MEDS: GLIMEPIRIDE 2 MG TAB PO SCH (08:20)
[2021-06-27] MEDS: COLCHICINE 0.6 MG TAB PO SCH (08:20)
[2021-06-27] MEDS: DOCUSATE SODIUM 100 MG CAP PO SCH (08:20)
[2021-06-27] MEDS: ASPIRIN 81 MG CHEW TAB PO SCH (08:20)
[2021-06-27] MEDS: ALLOPURINOL 300 MG TAB PO SCH (08:21)
[2021-06-27] MEDS: METOLAZONE 5 MG TAB PO SCH (08:21)
[2021-06-27] MEDS: FUROSEMIDE 40 MG TAB PO SCH (08:21)
[2021-06-27] MEDS: POTASSIUM CHLORIDE 10MEQ EA PO SCH (08:21)
[2021-06-27] MEDS: METOPROLOL SUCCINATE 50 MG TAB XL PO SCH (08:21)
[2021-06-27] MEDS: BALSAM PERU/CASTOR OIL 60 GM OINT...G. TP SCH (08:21)
[2021-06-27] MEDS: COLLAGENASE 5 GM TUBE TP SCH (08:21)
[2021-06-27] MEDS: INSULIN REGULAR, HUMAN 100 UNIT/1 ML SQ SCH ×4 (08:45→21:05)
[2021-06-27] MEDS: ATORVASTATIN 10 MG TAB PO SCH (21:02)
[2021-06-27] MEDS: PANTOPRAZOLE SOD 40 MG TABEC PO SCH (21:02)
[2021-06-28] VITALS (8 sets, daily range): BP systolic 101–173; BP diastolic 60–72
[2021-06-28] MEDS: CEFEPIME 1 GM in SODIUM CHLORIDE 0.9% 50ML 50 ML IV SCH ×4 (01:24→21:32)
[2021-06-28] MEDS: DOCUSATE SODIUM 100 MG CAP PO SCH ×3 (07:52→17:46)
[2021-06-28] MEDS: GLIMEPIRIDE 2 MG TAB PO SCH ×3 (07:52→17:46)
[2021-06-28] MEDS: FUROSEMIDE 40 MG TAB PO SCH ×3 (07:53→17:46)
[2021-06-28] MEDS: COLCHICINE 0.6 MG TAB PO SCH ×3 (07:53→17:46)
[2021-06-28] MEDS: Vancomycin IV 1.25 GM in SODIUM CHLORIDE 0.9% 250ML 250 ML IV SCH (08:00)
[2021-06-28] MEDS: ASPIRIN 81 MG CHEW TAB PO SCH (08:52)
[2021-06-28] MEDS: ALLOPURINOL 300 MG TAB PO SCH (08:53)
[2021-06-28] MEDS: BALSAM PERU/CASTOR OIL 60 GM OINT...G. TP SCH (08:53)
[2021-06-28] MEDS: METOPROLOL SUCCINATE 50 MG TAB XL PO SCH (08:53)
[2021-06-28] MEDS: METOLAZONE 5 MG TAB PO SCH (08:53)
[2021-06-28] MEDS: COLLAGENASE 5 GM TUBE TP SCH (08:53)
[2021-06-28] MEDS: POTASSIUM CHLORIDE 10MEQ EA PO SCH (08:54)
[2021-06-28] MEDS: INSULIN REGULAR, HUMAN 100 UNIT/1 ML SQ SCH ×4 (09:57→19:48)
[2021-06-28] MEDS: ATORVASTATIN 10 MG TAB PO SCH (19:55)
[2021-06-28] MEDS: PANTOPRAZOLE SOD 40 MG TABEC PO SCH (19:55)
[2021-06-29] VITALS (8 sets, daily range): BP systolic 139–157; BP diastolic 61–72
[2021-06-29] MEDS: CEFEPIME 1 GM in SODIUM CHLORIDE 0.9% 50ML 50 ML IV SCH ×2 (05:31→14:10)
[2021-06-29] MEDS: INSULIN REGULAR, HUMAN 100 UNIT/1 ML SQ SCH ×4 (07:30→20:59)
[2021-06-29] MEDS: GLIMEPIRIDE 2 MG TAB PO SCH ×2 (08:36→16:20)
[2021-06-29] MEDS: ALLOPURINOL 300 MG TAB PO SCH (08:37)
[2021-06-29] MEDS: ASPIRIN 81 MG CHEW TAB PO SCH (08:37)
[2021-06-29] MEDS: METOPROLOL SUCCINATE 50 MG TAB XL PO SCH (08:37)
[2021-06-29] MEDS: DOCUSATE SODIUM 100 MG CAP PO SCH ×2 (08:37→16:20)
[2021-06-29] MEDS: POTASSIUM CHLORIDE 10MEQ EA PO SCH (08:37)
[2021-06-29] MEDS: FUROSEMIDE 40 MG TAB PO SCH ×2 (08:37→16:20)
[2021-06-29] MEDS: COLCHICINE 0.6 MG TAB PO SCH ×2 (08:37→16:20)
[2021-06-29] MEDS: COLLAGENASE 5 GM TUBE TP SCH (08:37)
[2021-06-29] MEDS: METOLAZONE 5 MG TAB PO SCH (08:37)
[2021-06-29] MEDS: BALSAM PERU/CASTOR OIL 60 GM OINT...G. TP SCH (08:38)
[2021-06-29] MEDS: ATORVASTATIN 10 MG TAB PO SCH (20:59)
[2021-06-29] MEDS: PANTOPRAZOLE SOD 40 MG TABEC PO SCH (20:59)
[2021-06-30] VITALS (8 sets, daily range): BP systolic 100–173; BP diastolic 65–87
[2021-06-30 05:06] LABS: BASOPHILS # (AUTO) 0.1 (0.0-0.1); BASOPHILS % 1.1 % (0.0-1.0); EOSINOPHILS # (AUTO) 1.4 (0.0-0.4); EOSINOPHILS % 13.4 % (0.0-6.0); HEMATOCRIT 30.5 % (38.2-49.6); HEMOGLOBIN 9.9 g/dL (14.0-18.0); LYMPHOCYTES # (AUTO) 1.6 (1.0-3.2); LYMPHOCYTES % 15.6 % (18.0-39.1); MEAN CORPUSCULAR HEMOGLOBIN 28.3 pg (28-32); MEAN CORPUSCULAR HGB CONC 32.5 g/dL (31-35); MEAN CORPUSCULAR VOLUME 87.1 fL (81-99); MONOCYTES % 9.7 % (4.4-11.3); NEUTROPHILS # (AUTO) 6.1 (2.1-6.9); NEUTROPHILS % 58.4 % (38.7-80.0); PLATELET COUNT 304 x10e3/uL (140-360); RED CELL DISTRIBUTION WIDTH 14.8 % (11.7-14.4)
[2021-06-30 05:49] LABS: ALBUMIN 2.9 g/dL (3.5-5.0); ALBUMIN/GLOBULIN RATIO 0.7 (0.8-2.0); ANION GAP 14.9 mmol/L (8-16); CALCIUM 8.6 mg/dL (8.4-10.2); CREATININE, SERUM 1.54 mg/dL (0.72-1.25); POTASSIUM 3.9 mmol/L (3.5-5.1)
[2021-06-30] MEDS: INSULIN REGULAR, HUMAN 100 UNIT/1 ML SQ SCH ×4 (07:30→21:21)
[2021-06-30] MEDS: GLIMEPIRIDE 2 MG TAB PO SCH ×2 (08:17→16:22)
[2021-06-30] MEDS: COLCHICINE 0.6 MG TAB PO SCH ×2 (08:17→16:23)
[2021-06-30] MEDS: CEFTRIAXONE 1 GM in SODIUM CHLORIDE 0.9% 50ML 50 ML IV SCH (08:17)
[2021-06-30] MEDS: DOCUSATE SODIUM 100 MG CAP PO SCH ×3 (08:17→16:22)
[2021-06-30] MEDS: ASPIRIN 81 MG CHEW TAB PO SCH (08:17)
[2021-06-30] MEDS: BALSAM PERU/CASTOR OIL 60 GM OINT...G. TP SCH (08:18)
[2021-06-30] MEDS: ALLOPURINOL 300 MG TAB PO SCH (08:18)
[2021-06-30] MEDS: FUROSEMIDE 40 MG TAB PO SCH ×2 (08:18→16:23)
[2021-06-30] MEDS: METOLAZONE 5 MG TAB PO SCH (08:18)
[2021-06-30] MEDS: METOPROLOL SUCCINATE 50 MG TAB XL PO SCH (08:18)
[2021-06-30] MEDS: COLLAGENASE 5 GM TUBE TP SCH (08:18)
[2021-06-30] MEDS: POTASSIUM CHLORIDE 10MEQ EA PO SCH (08:19)
[2021-06-30] MEDS: FLUCONAZOLE 100 MG TAB PO SCH (14:47)
[2021-06-30] MEDS: PANTOPRAZOLE SOD 40 MG TABEC PO SCH (21:21)
[2021-06-30] MEDS: ATORVASTATIN 10 MG TAB PO SCH (21:21)
[2021-07-01] VITALS (8 sets, daily range): BP systolic 148–164; BP diastolic 59–86
[2021-07-01] MEDS: DOCUSATE SODIUM 100 MG CAP PO SCH ×2 (08:06→16:19)
[2021-07-01] MEDS: FLUCONAZOLE 100 MG TAB PO SCH (08:10)
[2021-07-01] MEDS: COLCHICINE 0.6 MG TAB PO SCH ×2 (08:10→17:01)
[2021-07-01] MEDS: ASPIRIN 81 MG CHEW TAB PO SCH (08:10)
[2021-07-01] MEDS: CEFTRIAXONE 1 GM in SODIUM CHLORIDE 0.9% 50ML 50 ML IV SCH (08:10)
[2021-07-01] MEDS: GLIMEPIRIDE 2 MG TAB PO SCH ×2 (08:10→17:01)
[2021-07-01] MEDS: POTASSIUM CHLORIDE 10MEQ EA PO SCH (08:11)
[2021-07-01] MEDS: ALLOPURINOL 300 MG TAB PO SCH (08:11)
[2021-07-01] MEDS: METOPROLOL SUCCINATE 50 MG TAB XL PO SCH (08:11)
[2021-07-01] MEDS: FUROSEMIDE 40 MG TAB PO SCH ×2 (08:11→17:01)
[2021-07-01] MEDS: METOLAZONE 5 MG TAB PO SCH (08:11)
[2021-07-01] MEDS: INSULIN REGULAR, HUMAN 100 UNIT/1 ML SQ SCH ×4 (08:14→20:30)
[2021-07-01] MEDS: BALSAM PERU/CASTOR OIL 60 GM OINT...G. TP SCH (09:39)
[2021-07-01] MEDS: COLLAGENASE 5 GM TUBE TP SCH (09:39)
[2021-07-01] MEDS: PANTOPRAZOLE SOD 40 MG TABEC PO SCH (20:12)
[2021-07-01] MEDS: ATORVASTATIN 10 MG TAB PO SCH (20:12)
[2021-07-02] VITALS (9 sets, daily range): BP systolic 132–168; BP diastolic 51–84
[2021-07-02] MEDS: INSULIN REGULAR, HUMAN 100 UNIT/1 ML SQ SCH ×3 (08:27→16:45)
[2021-07-02] MEDS: GLIMEPIRIDE 2 MG TAB PO SCH ×2 (08:34→16:46)
[2021-07-02] MEDS: ASPIRIN 81 MG CHEW TAB PO SCH (08:34)
[2021-07-02] MEDS: CEFTRIAXONE 1 GM in SODIUM CHLORIDE 0.9% 50ML 50 ML IV SCH (08:34)
[2021-07-02] MEDS: METOLAZONE 5 MG TAB PO SCH (08:35)
[2021-07-02] MEDS: FUROSEMIDE 40 MG TAB PO SCH ×2 (08:35→16:47)
[2021-07-02] MEDS: DOCUSATE SODIUM 100 MG CAP PO SCH ×2 (08:35→16:46)
[2021-07-02] MEDS: COLLAGENASE 5 GM TUBE TP SCH (08:35)
[2021-07-02] MEDS: FLUCONAZOLE 100 MG TAB PO SCH (08:35)
[2021-07-02] MEDS: BALSAM PERU/CASTOR OIL 60 GM OINT...G. TP SCH (08:35)
[2021-07-02] MEDS: ALLOPURINOL 300 MG TAB PO SCH (08:35)
[2021-07-02] MEDS: METOPROLOL SUCCINATE 50 MG TAB XL PO SCH (08:35)
[2021-07-02] MEDS: POTASSIUM CHLORIDE 10MEQ EA PO SCH (08:36)
[2021-07-02] MEDS ORDERED: INSULIN REGULAR, HUMAN 100 UNIT/1 ML SQ ONE (16:44)
[2021-07-03] MEDS: INSULIN REGULAR, HUMAN 100 UNIT/1 ML SQ SCH ×5 (00:52→21:00)
[2021-07-03] MEDS: ATORVASTATIN 10 MG TAB PO SCH ×2 (00:54→19:59)
[2021-07-03] MEDS: PANTOPRAZOLE SOD 40 MG TABEC PO SCH ×2 (00:54→19:59)
[2021-07-03 04:00] VITALS: BP 143/64
[2021-07-03 08:13] VITALS: BP 111/79
[2021-07-03] MEDS: DOCUSATE SODIUM 100 MG CAP PO SCH ×2 (08:31→16:05)
[2021-07-03] MEDS: ASPIRIN 81 MG CHEW TAB PO SCH (08:31)
[2021-07-03] MEDS: GLIMEPIRIDE 2 MG TAB PO SCH ×2 (08:31→16:08)
[2021-07-03] MEDS: CEFTRIAXONE 1 GM in SODIUM CHLORIDE 0.9% 50ML 50 ML IV SCH (08:31)
[2021-07-03] MEDS: FLUCONAZOLE 100 MG TAB PO SCH (08:31)
[2021-07-03] MEDS: POTASSIUM CHLORIDE 10MEQ EA PO SCH (08:32)
[2021-07-03] MEDS: ALLOPURINOL 300 MG TAB PO SCH (08:32)
[2021-07-03] MEDS: COLLAGENASE 5 GM TUBE TP SCH (08:32)
[2021-07-03] MEDS: FUROSEMIDE 40 MG TAB PO SCH ×2 (08:32→16:08)
[2021-07-03] MEDS: BALSAM PERU/CASTOR OIL 60 GM OINT...G. TP SCH (08:32)
[2021-07-03] MEDS: METOPROLOL SUCCINATE 50 MG TAB XL PO SCH (08:32)
[2021-07-03] MEDS: METOLAZONE 5 MG TAB PO SCH (08:32)
[2021-07-03 10:08] VITALS: BP 111/79
[2021-07-03 12:01] VITALS: BP 162/78
[2021-07-03] MEDS ORDERED: ONDANSETRON HCL 4 MG ORAL DISINTEGRATING TAB PO PRN (15:30)
[2021-07-03 16:20] VITALS: BP 164/79
[2021-07-03 20:04] VITALS: BP 159/82
[2021-07-04] VITALS (7 sets, daily range): BP systolic 143–166; BP diastolic 70–81
[2021-07-04] MEDS: INSULIN REGULAR, HUMAN 100 UNIT/1 ML SQ SCH ×3 (07:53→16:30)
[2021-07-04] MEDS: GLIMEPIRIDE 2 MG TAB PO SCH ×2 (07:56→16:58)
[2021-07-04] MEDS: ASPIRIN 81 MG CHEW TAB PO SCH (09:26)
[2021-07-04] MEDS: DOCUSATE SODIUM 100 MG CAP PO SCH ×2 (09:26→16:58)
[2021-07-04] MEDS: CEFTRIAXONE 1 GM in SODIUM CHLORIDE 0.9% 50ML 50 ML IV SCH (09:26)
[2021-07-04] MEDS: POTASSIUM CHLORIDE 10MEQ EA PO SCH (09:27)
[2021-07-04] MEDS: FUROSEMIDE 40 MG TAB PO SCH ×2 (09:27→16:58)
[2021-07-04] MEDS: FLUCONAZOLE 100 MG TAB PO SCH (09:27)
[2021-07-04] MEDS: COLLAGENASE 5 GM TUBE TP SCH (09:28)
[2021-07-04] MEDS: METOLAZONE 5 MG TAB PO SCH (09:28)
[2021-07-04] MEDS: ALLOPURINOL 300 MG TAB PO SCH (09:28)
[2021-07-04] MEDS: BALSAM PERU/CASTOR OIL 60 GM OINT...G. TP SCH (09:28)
[2021-07-04] MEDS: METOPROLOL SUCCINATE 50 MG TAB XL PO SCH (09:28)
[2021-07-04] MEDS ORDERED: SODIUM CHLORIDE 0.9% 250ML 250 ML ONE (10:07)
[2021-07-04] MEDS ORDERED: INSULIN REGULAR, HUMAN 100 UNIT/1 ML SQ ONE (17:15)
== END 2021-07-04 17:50 | disposition home health service (06) | DRG 638 ==
LOC: ER 17:57 → ERHOLD 19:04 → MED/SURG2 21:07
PROVIDERS: ADMIT Internal Medicine; ATTEND Internal Medicine
PROC: 02HV33Z Insertion of Infusion Device into Superior Vena Cava, Percutaneous Approach (ICD-10-PCS; principal; 2021-07-01)
DX: E11.69 Type 2 diabetes mellitus with other specified complication (principal); L03.116 Cellulitis of left lower limb; M86.672 Other chronic osteomyelitis, left ankle and foot; I13.0 Hypertensive heart and chronic kidney disease with heart failure and stage 1 through stage 4 chronic kidney disease, or unspecified chronic kidney disease; E11.621 Type 2 diabetes mellitus with foot ulcer; E78.5 Hyperlipidemia, unspecified; D64.9 Anemia, unspecified; E11.22 Type 2 diabetes mellitus with diabetic chronic kidney disease; I12.9 Hypertensive chronic kidney disease with stage 1 through stage 4 chronic kidney disease, or unspecified chronic kidney disease; N18.30 Chronic kidney disease, stage 3 unspecified; E03.9 Hypothyroidism, unspecified; G47.33 Obstructive sleep apnea (adult) (pediatric); E66.01 Morbid (severe) obesity due to excess calories; J44.9 Chronic obstructive pulmonary disease, unspecified; I50.9 Heart failure, unspecified; M10.9 Gout, unspecified; R53.81 Other malaise; E11.42 Type 2 diabetes mellitus with diabetic polyneuropathy; Z95.0 Presence of cardiac pacemaker; Z68.35 Body mass index [BMI] 35.0-35.9, adult; Z95.2 Presence of prosthetic heart valve; Z90.49 Acquired absence of other specified parts of digestive tract; Z88.0 Allergy status to penicillin; D63.1 Anemia in chronic kidney disease; Z20.822 Contact with and (suspected) exposure to COVID-19
CPT/HCPCS: 36415; 36569; 71045; 80053; 80202; 82948; 85025; 85610; 85730; 87040; 96360; 96372; 97139; 99251; 99284; J0692; J0696; J3370; J7050; U0002

== ENCOUNTER 2021-08-21 11:27 | Emergency (ER) | payer MEDICARE, BC, OTHER ==
[~2021-08-21] VITALS: Ht 177.8 cm; Wt 110.7 kg
[~2021-08-21 11:27] MED LIST changes: +ALDACTONE25 MG PO; +BENADRYL25 M1 PO; +FEROSUL325 MG PO; -WIXELA 250-501 EACH; +WIXELA 250-501 EACH INH
[2021-08-21 13:02] VITALS: BP 158/62
== END 2021-08-21 13:03 | disposition home or self-care (01) ==
LOC: ER 11:31
DX: S00.83XA Contusion of other part of head, initial encounter (principal); M79.641 Pain in right hand; W01.0XXA Fall on same level from slipping, tripping and stumbling without subsequent striking against object, initial encounter; Y93.01 Activity, walking, marching and hiking; Y92.238 Other place in hospital as the place of occurrence of the external cause; Z20.822 Contact with and (suspected) exposure to COVID-19
CPT/HCPCS: 70450; 72125; 73130; 99283; U0002

== ENCOUNTER 2021-08-22 09:24 | Observation (INO) | payer MEDICARE, BC ==
[2021-08-21 10:46] LABS: BASOPHILS # (AUTO) 0.1 (0.0-0.1); BASOPHILS % 0.9 % (0.0-1.0); EOSINOPHILS # (AUTO) 0.7 (0.0-0.4); HEMATOCRIT 35.8 % (38.2-49.6); HEMOGLOBIN 11.3 g/dL (14.0-18.0); LYMPHOCYTES # (AUTO) 1.6 (1.0-3.2); LYMPHOCYTES % 17.7 % (18.0-39.1); MEAN CORPUSCULAR HEMOGLOBIN 29.3 pg (28-32); MEAN CORPUSCULAR HGB CONC 31.6 g/dL (31-35); MEAN CORPUSCULAR VOLUME 92.7 fL (81-99); MONOCYTES # (AUTO) 0.6 (0.2-0.8); MONOCYTES % 6.9 % (4.4-11.3); NEUTROPHILS # (AUTO) 5.7 (2.1-6.9); NEUTROPHILS % 64.9 % (38.7-80.0); PLATELET COUNT 223 x10e3/uL (140-360); RED BLOOD COUNT 3.86 x10e6/uL (4.3-5.7); RED CELL DISTRIBUTION WIDTH 14.6 % (11.7-14.4)
[2021-08-21 11:29] LABS: ANION GAP 16.4 mmol/L (8-16); CALCIUM 8.7 mg/dL (8.4-10.2); CREATININE, SERUM 1.85 mg/dL (0.72-1.25); POTASSIUM 4.4 mmol/L (3.5-5.1)
[~2021-08-22] VITALS: Ht 177.8 cm; Wt 111.1 kg
[2021-08-22] MEDS ORDERED: SODIUM CHLORIDE 0.9% 50ML 50 ML ONE (10:08)
[2021-08-22] MEDS ORDERED: Vancomycin IV 1 GM VIAL ONE (10:08)
[2021-08-22] MEDS ORDERED: BUPIVACAINE HCL 0.5% INJ 30 ML VIAL INJ ONE (11:03)
[2021-08-22] MEDS ORDERED: SEVOFLURANE INHAL SOLN 250 ML PEN BTL ONE (12:50)
[2021-08-22] MEDS ORDERED: DEXAMETHASONE SOD PHOS INJ 4 MG/ML SDV ONE (12:50)
[2021-08-22] MEDS ORDERED: POVIDONE IODINE 0.05% 0.05 % ML PO ONE (12:50)
[2021-08-22] MEDS ORDERED: PROPOFOL IV EMULSION 10 MG/ML 20 ML VIAL ONE (12:50)
[2021-08-22] MEDS ORDERED: ONDANSETRON HCL INJ 2MG/ML 2ML 2 MG/ML VIAL ONE (12:50)
[2021-08-22] MEDS ORDERED: LIDOCAINE HCL 2% LOCAL INJ 5 ML SDV VIAL INJ ONE (12:50)
[2021-08-22 13:41] VITALS: BP 157/84
[2021-08-22 16:06] VITALS: BP 167/68
[2021-08-22 16:07] VITALS: BP 167/68
[2021-08-22 20:00] VITALS: BP 153/72
[2021-08-23 00:09] VITALS: BP 140/62
[2021-08-23 04:00] VITALS: BP 162/79
[2021-08-23] MEDS ORDERED: DIPHENHYDRAMINE HCL 25 MG CAP PO PRN (07:00)
[2021-08-23] MEDS ORDERED: SALMETEROL/FLUTICASONE 250/50 INH SCH (07:00)
[2021-08-23 08:52] VITALS: BP 161/68
[2021-08-23] MEDS ORDERED: FERROUS SULFATE 325 MG TAB PO SCH (09:00)
[2021-08-23] MEDS ORDERED: GLIMEPIRIDE 2 MG TAB PO SCH (09:00)
[2021-08-23] MEDS ORDERED: ASPIRIN 81 MG CHEW TAB PO SCH (09:00)
[2021-08-23] MEDS ORDERED: DOCUSATE SODIUM 100 MG CAP PO SCH (09:00)
[2021-08-23] MEDS ORDERED: METOPROLOL SUCCINATE 50 MG TAB XL PO SCH (09:00)
[2021-08-23] MEDS ORDERED: FUROSEMIDE 40 MG TAB PO SCH (09:00)
[2021-08-23] MEDS ORDERED: SPIRONOLACTONE 25 MG TAB PO SCH (09:00)
[2021-08-23 09:56] VITALS: BP 161/68
[2021-08-23] MEDS ORDERED: ACETAMINOPHEN 325 MG TAB PO PRN (10:30)
[2021-08-23] MEDS ORDERED: CEFEPIME 2 GM in SODIUM CHLORIDE 0.9% 100 ML IV SCH (11:00)
[2021-08-23 13:04] VITALS: BP 163/99
[2021-08-23] MEDS ORDERED: CEFUROXIME250 MG PO (15:36)
[2021-08-23] MEDS ORDERED: PANTOPRAZOLE SOD 40 MG TABEC PO SCH (21:00)
[2021-08-23] MEDS ORDERED: MONTELUKAST SODIUM 10 MG TAB PO SCH (21:00)
[2021-08-23] MEDS ORDERED: ATORVASTATIN 10 MG TAB PO SCH (21:00)
== END 2021-08-23 16:50 | disposition home or self-care (01) ==
LOC: OR 09:24 → PACU V 12:25 → MED/SURG 13:31
PROVIDERS: ADMIT Internal Medicine; ATTEND Internal Medicine
DX: E11.69 Type 2 diabetes mellitus with other specified complication (principal); M86.8X7 Other osteomyelitis, ankle and foot; L89.893 Pressure ulcer of other site, stage 3; N28.9 Disorder of kidney and ureter, unspecified; J44.9 Chronic obstructive pulmonary disease, unspecified; Z79.82 Long term (current) use of aspirin; Z79.4 Long term (current) use of insulin; Z79.84 Long term (current) use of oral hypoglycemic drugs; Z01.810 Encounter for preprocedural cardiovascular examination; Z01.812 Encounter for preprocedural laboratory examination; Z01.818 Encounter for other preprocedural examination
CPT/HCPCS: 28810; 36415 ×3; 71046; 73630; 76000; 80048; 82948 ×2; 85025; 87071; 87075; 87186; 87205; 88305; 88311; 93005; G0378 ×2; J0692; J1100; J2001; J2405; J2704; J3370; J7050; V2790; 88304

== ENCOUNTER 2022-05-12 12:42 | Inpatient (IN) | payer BC, MEDICARE ==
[~2022-05-12] VITALS: Ht 177.8 cm; Wt 111.1 kg
[~2022-05-12 12:42] MED LIST changes: +CEFUROXIME250 MG PO
[2022-05-12 13:17] LABS: BASOPHILS # (AUTO) 0.1 (0.0-0.1); BASOPHILS % 0.4 % (0.0-1.0); EOSINOPHILS # (AUTO) 0.1 (0.0-0.4); EOSINOPHILS % 0.8 % (0.0-6.0); HEMATOCRIT 34.2 % (38.2-49.6); HEMOGLOBIN 11.3 g/dL (14.0-18.0); LYMPHOCYTES # (AUTO) 1.2 (1.0-3.2); LYMPHOCYTES % 10.7 % (18.0-39.1); MEAN CORPUSCULAR HEMOGLOBIN 30.7 pg (28-32); MEAN CORPUSCULAR VOLUME 92.9 fL (81-99); MONOCYTES # (AUTO) 1.7 (0.2-0.8); MONOCYTES % 15.1 % (4.4-11.3); NEUTROPHILS # (AUTO) 8.3 (2.1-6.9); PLATELET COUNT 287 x10e3/uL (140-360); RED BLOOD COUNT 3.68 x10e6/uL (4.3-5.7); RED CELL DISTRIBUTION WIDTH 13.8 % (11.7-14.4)
[2022-05-12 13:26] LABS: CLARITY,URINE SL CLOUDY (CLEAR); COLOR,URINE YELLOW (YELLOW); KETONES,URINE NEGATIVE (NEGATIVE); LEUKOCYTE ESTERASE ,URINE MODERATE (NEGATIVE); NITRITE,URINE NEGATIVE (NEGATIVE); PROTEIN,URINE DIPSTICK >=300 (NEGATIVE); URINE UROBILINOGEN 0.2 mg/dL (0.2 - 1)
[2022-05-12] MEDS ORDERED: SODIUM CHLORIDE 0.9% 1000ML 1,000 ML IV ONE (13:30)
[2022-05-12] MEDS ORDERED: CEFTRIAXONE 1 GM VIAL IV NR (13:30)
[2022-05-12 13:37] LABS: ALBUMIN 2.5 g/dL (3.5-5.0); ALBUMIN/GLOBULIN RATIO 0.8 (0.8-2.0); ANION GAP 16.4 mmol/L (8-16); CALCIUM 7.9 mg/dL (8.4-10.2); CREATININE, SERUM 1.65 mg/dL (0.72-1.25); POTASSIUM 4.4 mmol/L (3.5-5.1)
[2022-05-12 13:39] LABS: BACTERIA,URINE FEW /HPF; WBC,URINE (MAN) >50 /HPF (0-5)
[2022-05-12 13:40] LABS: YEAST,URINE MODERATE
[2022-05-12] MEDS ORDERED: ACETAMINOPHEN 325 MG TAB PO NR (13:45)
[2022-05-12] MEDS ORDERED: CEFTRIAXONE 1 GM VIAL IV ONE (14:45)
[2022-05-12] MEDS ORDERED: SODIUM CHLORIDE FLUSH 10 ML SYR INJ PRN (15:00)
[2022-05-12] MEDS ORDERED: ONDANSETRON HCL INJ 2MG/ML 2ML 2 MG/ML VIAL IV PRN (15:00)
[2022-05-12 20:50] VITALS: BP 165/69
[2022-05-12 21:15] VITALS: BP 165/69
[2022-05-12 22:00] VITALS: BP 129/75
[2022-05-13] VITALS (8 sets, daily range): BP systolic 152–168; BP diastolic 63–89
[2022-05-13] MEDS ORDERED: SALMETEROL/FLUTICASONE 250/50 INH PRN (03:30)
[2022-05-13] MEDS ORDERED: DEXTROSE 50% SYRINGE 50 ML IV PRN (03:45)
[2022-05-13 04:55] LABS: BASOPHILS % 0.4 % (0.0-1.0); EOSINOPHILS # (AUTO) 0.3 (0.0-0.4); EOSINOPHILS % 3.2 % (0.0-6.0); HEMATOCRIT 30.6 % (38.2-49.6); LYMPHOCYTES # (AUTO) 0.8 (1.0-3.2); LYMPHOCYTES % 8.8 % (18.0-39.1); MEAN CORPUSCULAR HEMOGLOBIN 30.1 pg (28-32); MEAN CORPUSCULAR HGB CONC 32.7 g/dL (31-35); MEAN CORPUSCULAR VOLUME 92.2 fL (81-99); MONOCYTES # (AUTO) 1.1 (0.2-0.8); MONOCYTES % 12.4 % (4.4-11.3); NEUTROPHILS # (AUTO) 6.8 (2.1-6.9); NEUTROPHILS % 74.1 % (38.7-80.0); PLATELET COUNT 231 x10e3/uL (140-360); RED BLOOD COUNT 3.32 x10e6/uL (4.3-5.7); RED CELL DISTRIBUTION WIDTH 13.6 % (11.7-14.4)
[2022-05-13 05:11] LABS: ANION GAP 15.8 mmol/L (8-16); CALCIUM 7.9 mg/dL (8.4-10.2); CREATININE, SERUM 1.5 mg/dL (0.72-1.25); POTASSIUM 3.8 mmol/L (3.5-5.1)
[2022-05-13] MEDS ORDERED: ONDANSETRON HCL 4 MG ORAL DISINTEGRATING TAB PO PRN (09:45)
[2022-05-13] MEDS: ASPIRIN 81 MG CHEW TAB PO SCH (09:46)
[2022-05-13] MEDS: SPIRONOLACTONE 25 MG TAB PO SCH ×2 (09:46→16:21)
[2022-05-13] MEDS: DOCUSATE SODIUM 100 MG CAP PO SCH ×2 (09:46→16:21)
[2022-05-13] MEDS: METOPROLOL SUCCINATE 50 MG TAB XL PO SCH ×2 (09:46→16:20)
[2022-05-13] MEDS: FERROUS SULFATE 325 MG TAB PO SCH ×2 (09:47→16:21)
[2022-05-13] MEDS: GLIMEPIRIDE 2 MG TAB PO SCH ×2 (09:47→16:21)
[2022-05-13] MEDS: FUROSEMIDE 40 MG TAB PO SCH ×2 (09:47→16:20)
[2022-05-13] MEDS: INSULIN REGULAR, HUMAN 100 UNIT/1 ML SQ SCH ×4 (09:53→21:49)
[2022-05-13] MEDS: ALBUTEROL/IPRATROPIUM 3 ML NEB NEB PRN ×2 (10:55→19:10)
[2022-05-13] MEDS: RIVAROXABAN 15 MG TABLET PO SCH (16:30)
[2022-05-13] MEDS: MONTELUKAST SODIUM 10 MG TAB PO SCH (21:43)
[2022-05-13] MEDS: PANTOPRAZOLE SOD 40 MG TABEC PO SCH (21:43)
[2022-05-13] MEDS: ATORVASTATIN 10 MG TAB PO SCH (21:43)
[2022-05-14] VITALS (7 sets, daily range): BP systolic 148–196; BP diastolic 67–95
[2022-05-14] MEDS: OFLOXACIN 0.3% (OTIC SOL) 5 ML BTL LEFT EAR SCH (06:28)
[2022-05-14] MEDS: INSULIN REGULAR, HUMAN 100 UNIT/1 ML SQ SCH ×4 (07:30→21:00)
[2022-05-14] MEDS: METOPROLOL SUCCINATE 50 MG TAB XL PO SCH ×2 (09:16→16:50)
[2022-05-14] MEDS: FUROSEMIDE 40 MG TAB PO SCH ×2 (09:16→16:51)
[2022-05-14] MEDS: FERROUS SULFATE 325 MG TAB PO SCH ×2 (09:17→16:51)
[2022-05-14] MEDS: DOCUSATE SODIUM 100 MG CAP PO SCH ×2 (09:17→16:51)
[2022-05-14] MEDS: SPIRONOLACTONE 25 MG TAB PO SCH ×2 (09:17→16:50)
[2022-05-14] MEDS: ASPIRIN 81 MG CHEW TAB PO SCH (09:17)
[2022-05-14] MEDS: GLIMEPIRIDE 2 MG TAB PO SCH ×2 (09:17→16:51)
[2022-05-14] MEDS: RIVAROXABAN 15 MG TABLET PO SCH (16:50)
[2022-05-14] MEDS: ACETAMINOPHEN 325 MG TAB PO PRN (21:06)
[2022-05-14] MEDS: PANTOPRAZOLE SOD 40 MG TABEC PO SCH (21:06)
[2022-05-14] MEDS: ATORVASTATIN 10 MG TAB PO SCH (21:06)
[2022-05-14] MEDS: MONTELUKAST SODIUM 10 MG TAB PO SCH (21:07)
[2022-05-15] VITALS (8 sets, daily range): BP systolic 109–160; BP diastolic 49–92
[2022-05-15 04:55] LABS: BASOPHILS % 0.4 % (0.0-1.0); EOSINOPHILS # (AUTO) 0.2 (0.0-0.4); EOSINOPHILS % 2.3 % (0.0-6.0); HEMATOCRIT 32.8 % (38.2-49.6); HEMOGLOBIN 10.6 g/dL (14.0-18.0); LYMPHOCYTES # (AUTO) 1.3 (1.0-3.2); LYMPHOCYTES % 12.9 % (18.0-39.1); MEAN CORPUSCULAR HEMOGLOBIN 29.6 pg (28-32); MEAN CORPUSCULAR HGB CONC 32.3 g/dL (31-35); MEAN CORPUSCULAR VOLUME 91.6 fL (81-99); MONOCYTES # (AUTO) 1.6 (0.2-0.8); MONOCYTES % 16.2 % (4.4-11.3); NEUTROPHILS # (AUTO) 6.6 (2.1-6.9); NEUTROPHILS % 67.5 % (38.7-80.0); PLATELET COUNT 307 x10e3/uL (140-360); RED BLOOD COUNT 3.58 x10e6/uL (4.3-5.7); RED CELL DISTRIBUTION WIDTH 13.8 % (11.7-14.4)
[2022-05-15 05:17] LABS: ALBUMIN/GLOBULIN RATIO 0.5 (0.8-2.0); ANION GAP 15.7 mmol/L (8-16); CALCIUM 8.4 mg/dL (8.4-10.2); CREATININE, SERUM 1.75 mg/dL (0.72-1.25); POTASSIUM 3.7 mmol/L (3.5-5.1)
[2022-05-15] MEDS: INSULIN REGULAR, HUMAN 100 UNIT/1 ML SQ SCH ×4 (07:30→21:42)
[2022-05-15] MEDS: GLIMEPIRIDE 2 MG TAB PO SCH ×2 (10:07→16:40)
[2022-05-15] MEDS: SPIRONOLACTONE 25 MG TAB PO SCH ×2 (10:08→16:38)
[2022-05-15] MEDS: OFLOXACIN 0.3% (OTIC SOL) 5 ML BTL LEFT EAR SCH (10:08)
[2022-05-15] MEDS: ASPIRIN 81 MG CHEW TAB PO SCH (10:08)
[2022-05-15] MEDS: FUROSEMIDE 40 MG TAB PO SCH ×2 (10:09→16:39)
[2022-05-15] MEDS: DOCUSATE SODIUM 100 MG CAP PO SCH ×2 (10:09→16:37)
[2022-05-15] MEDS: FLUCONAZOLE 100 MG TAB PO SCH (10:09)
[2022-05-15] MEDS: FERROUS SULFATE 325 MG TAB PO SCH ×2 (10:09→16:38)
[2022-05-15] MEDS: METOPROLOL SUCCINATE 50 MG TAB XL PO SCH ×2 (10:12→16:37)
[2022-05-15] MEDS: DIPHENHYDRAMINE HCL 25 MG CAP PO PRN (10:42)
[2022-05-15] MEDS: RIVAROXABAN 15 MG TABLET PO SCH (16:36)
[2022-05-15] MEDS: ALBUTEROL/IPRATROPIUM 3 ML NEB NEB PRN (19:50)
[2022-05-15] MEDS: PANTOPRAZOLE SOD 40 MG TABEC PO SCH (21:41)
[2022-05-15] MEDS: ATORVASTATIN 10 MG TAB PO SCH (21:41)
[2022-05-15] MEDS: MONTELUKAST SODIUM 10 MG TAB PO SCH (21:41)
[2022-05-16] VITALS (7 sets, daily range): BP systolic 132–176; BP diastolic 62–79
[2022-05-16] MEDS: OFLOXACIN 0.3% (OTIC SOL) 5 ML BTL LEFT EAR SCH (09:45)
[2022-05-16] MEDS: SPIRONOLACTONE 25 MG TAB PO SCH ×2 (09:45→17:23)
[2022-05-16] MEDS: DOCUSATE SODIUM 100 MG CAP PO SCH ×2 (09:45→17:22)
[2022-05-16] MEDS: ASPIRIN 81 MG CHEW TAB PO SCH (09:46)
[2022-05-16] MEDS: GLIMEPIRIDE 2 MG TAB PO SCH ×2 (09:46→17:21)
[2022-05-16] MEDS: FUROSEMIDE 40 MG TAB PO SCH ×2 (09:46→17:23)
[2022-05-16] MEDS: FERROUS SULFATE 325 MG TAB PO SCH ×2 (09:46→17:23)
[2022-05-16] MEDS: FLUCONAZOLE 100 MG TAB PO SCH (09:47)
[2022-05-16] MEDS: METOPROLOL SUCCINATE 50 MG TAB XL PO SCH ×2 (09:47→17:21)
[2022-05-16] MEDS: INSULIN REGULAR, HUMAN 100 UNIT/1 ML SQ SCH ×4 (11:19→21:03)
[2022-05-16] MEDS: RIVAROXABAN 15 MG TABLET PO SCH (17:23)
[2022-05-16] MEDS: DIPHENHYDRAMINE HCL 25 MG CAP PO PRN (18:48)
[2022-05-16] MEDS: ALBUTEROL/IPRATROPIUM 3 ML NEB NEB PRN (19:10)
[2022-05-16] MEDS: PANTOPRAZOLE SOD 40 MG TABEC PO SCH (20:59)
[2022-05-16] MEDS: ATORVASTATIN 10 MG TAB PO SCH (20:59)
[2022-05-16] MEDS: MONTELUKAST SODIUM 10 MG TAB PO SCH (20:59)
[2022-05-17] VITALS (8 sets, daily range): BP systolic 131–171; BP diastolic 58–86
[2022-05-17] MEDS: ALBUTEROL/IPRATROPIUM 3 ML NEB NEB PRN ×2 (06:25→10:50)
[2022-05-17] MEDS: FLUCONAZOLE 100 MG TAB PO SCH (09:51)
[2022-05-17] MEDS: ASPIRIN 81 MG CHEW TAB PO SCH (09:52)
[2022-05-17] MEDS: DOCUSATE SODIUM 100 MG CAP PO SCH ×2 (09:52→17:12)
[2022-05-17] MEDS: SPIRONOLACTONE 25 MG TAB PO SCH ×2 (09:52→17:12)
[2022-05-17] MEDS: GLIMEPIRIDE 2 MG TAB PO SCH ×2 (09:52→17:11)
[2022-05-17] MEDS: OFLOXACIN 0.3% (OTIC SOL) 5 ML BTL LEFT EAR SCH (09:53)
[2022-05-17] MEDS: FERROUS SULFATE 325 MG TAB PO SCH ×2 (09:53→17:12)
[2022-05-17] MEDS: FUROSEMIDE 40 MG TAB PO SCH ×2 (09:53→17:12)
[2022-05-17] MEDS: METOPROLOL SUCCINATE 50 MG TAB XL PO SCH ×2 (09:54→17:11)
[2022-05-17] MEDS: DIPHENHYDRAMINE HCL 25 MG CAP PO PRN (10:32)
[2022-05-17] MEDS: INSULIN REGULAR, HUMAN 100 UNIT/1 ML SQ SCH ×4 (10:46→22:06)
[2022-05-17] MEDS: RIVAROXABAN 15 MG TABLET PO SCH (17:11)
[2022-05-17] MEDS: ADVAIR INH PRN (19:25)
[2022-05-17] MEDS: MONTELUKAST SODIUM 10 MG TAB PO SCH (21:46)
[2022-05-17] MEDS: PANTOPRAZOLE SOD 40 MG TABEC PO SCH (21:47)
[2022-05-17] MEDS: ATORVASTATIN 10 MG TAB PO SCH (21:47)
[2022-05-18] VITALS (8 sets, daily range): BP systolic 143–164; BP diastolic 58–81
[2022-05-18] MEDS ORDERED: METHYLPREDNISOLONE SOD SUCC 40 MG/ML VIAL 1ML IV ONE (04:30)
[2022-05-18 06:45] LABS: BASOPHILS # (AUTO) 0.1 (0.0-0.1); BASOPHILS % 0.7 % (0.0-1.0); EOSINOPHILS # (AUTO) 0.3 (0.0-0.4); EOSINOPHILS % 2.6 % (0.0-6.0); HEMOGLOBIN 10.7 g/dL (14.0-18.0); LYMPHOCYTES % 8.1 % (18.0-39.1); MEAN CORPUSCULAR HEMOGLOBIN 29.9 pg (28-32); MEAN CORPUSCULAR HGB CONC 32.4 g/dL (31-35); MEAN CORPUSCULAR VOLUME 92.2 fL (81-99); MONOCYTES # (AUTO) 1.3 (0.2-0.8); MONOCYTES % 10.7 % (4.4-11.3); NEUTROPHILS # (AUTO) 9.6 (2.1-6.9); NEUTROPHILS % 76.9 % (38.7-80.0); PLATELET COUNT 425 x10e3/uL (140-360); RED BLOOD COUNT 3.58 x10e6/uL (4.3-5.7); RED CELL DISTRIBUTION WIDTH 14.1 % (11.7-14.4)
[2022-05-18 07:03] LABS: ALBUMIN 2.1 g/dL (3.5-5.0); ALBUMIN/GLOBULIN RATIO 0.5 (0.8-2.0); ANION GAP 18.3 mmol/L (8-16); CREATININE, SERUM 1.57 mg/dL (0.72-1.25); MAGNESIUM 1.7 MG/DL (1.3-2.1); POTASSIUM 4.3 mmol/L (3.5-5.1)
[2022-05-18] MEDS: INSULIN REGULAR, HUMAN 100 UNIT/1 ML SQ SCH ×4 (07:30→22:06)
[2022-05-18] MEDS: GLIMEPIRIDE 2 MG TAB PO SCH ×2 (08:00→16:23)
[2022-05-18] MEDS: OFLOXACIN 0.3% (OTIC SOL) 5 ML BTL LEFT EAR SCH (09:09)
[2022-05-18] MEDS: FUROSEMIDE 40 MG TAB PO SCH ×2 (09:10→16:23)
[2022-05-18] MEDS: FLUCONAZOLE 100 MG TAB PO SCH (09:10)
[2022-05-18] MEDS: DOCUSATE SODIUM 100 MG CAP PO SCH ×2 (09:10→16:23)
[2022-05-18] MEDS: METOPROLOL SUCCINATE 50 MG TAB XL PO SCH ×2 (09:11→16:24)
[2022-05-18] MEDS: SPIRONOLACTONE 25 MG TAB PO SCH ×2 (09:11→16:24)
[2022-05-18] MEDS: FERROUS SULFATE 325 MG TAB PO SCH ×2 (09:11→16:24)
[2022-05-18] MEDS: ASPIRIN 81 MG CHEW TAB PO SCH (09:11)
[2022-05-18] MEDS: ACETAMINOPHEN 325 MG TAB PO PRN (09:13)
[2022-05-18] MEDS: ALBUTEROL/IPRATROPIUM 3 ML NEB NEB PRN ×2 (09:42→19:50)
[2022-05-18] MEDS ORDERED: BISACODYL 5 MG TAB EC PO PRN (11:45)
[2022-05-18] MEDS: RIVAROXABAN 15 MG TABLET PO SCH (16:23)
[2022-05-18] MEDS ORDERED: ZOLPIDEM TARTRATE 5 MG TAB PO PRN (21:30)
[2022-05-18] MEDS: MONTELUKAST SODIUM 10 MG TAB PO SCH (22:01)
[2022-05-18] MEDS: PANTOPRAZOLE SOD 40 MG TABEC PO SCH (22:01)
[2022-05-18] MEDS: ATORVASTATIN 10 MG TAB PO SCH (22:01)
[2022-05-19] VITALS (8 sets, daily range): BP systolic 147–161; BP diastolic 63–79
[2022-05-19] MEDS: OFLOXACIN 0.3% (OTIC SOL) 5 ML BTL LEFT EAR SCH (10:00)
[2022-05-19] MEDS: SPIRONOLACTONE 25 MG TAB PO SCH ×2 (10:01→16:41)
[2022-05-19] MEDS: FERROUS SULFATE 325 MG TAB PO SCH ×2 (10:01→16:42)
[2022-05-19] MEDS: DOCUSATE SODIUM 100 MG CAP PO SCH ×2 (10:01→16:42)
[2022-05-19] MEDS: GLIMEPIRIDE 2 MG TAB PO SCH ×2 (10:01→16:41)
[2022-05-19] MEDS: FLUCONAZOLE 100 MG TAB PO SCH (10:01)
[2022-05-19] MEDS: ASPIRIN 81 MG CHEW TAB PO SCH (10:01)
[2022-05-19] MEDS: METOPROLOL SUCCINATE 50 MG TAB XL PO SCH ×2 (10:02→16:41)
[2022-05-19] MEDS: FUROSEMIDE 40 MG TAB PO SCH ×2 (10:02→16:41)
[2022-05-19] MEDS: DIPHENHYDRAMINE HCL 25 MG CAP PO PRN ×2 (10:04→21:26)
[2022-05-19] MEDS: INSULIN REGULAR, HUMAN 100 UNIT/1 ML SQ SCH ×4 (10:11→21:22)
[2022-05-19] MEDS: ADVAIR INH PRN ×2 (10:20→19:50)
[2022-05-19] MEDS: ALBUTEROL/IPRATROPIUM 3 ML NEB NEB PRN ×2 (10:20→19:50)
[2022-05-19] MEDS ORDERED: INSULIN REGULAR, HUMAN 100 UNIT/1 ML SQ NR (16:00)
[2022-05-19] MEDS: RIVAROXABAN 15 MG TABLET PO SCH (16:41)
[2022-05-19] MEDS ORDERED: INSULIN REGULAR, HUMAN 100 UNIT/1 ML SQ ONE (18:15)
[2022-05-19] MEDS: PANTOPRAZOLE SOD 40 MG TABEC PO SCH (21:18)
[2022-05-19] MEDS: MONTELUKAST SODIUM 10 MG TAB PO SCH (21:18)
[2022-05-19] MEDS: ATORVASTATIN 10 MG TAB PO SCH (21:18)
[2022-05-20 00:02] VITALS: BP 163/76
[2022-05-20 06:17] VITALS: BP 163/69
[2022-05-20] MEDS: ALBUTEROL/IPRATROPIUM 3 ML NEB NEB PRN (07:30)
[2022-05-20] MEDS: INSULIN REGULAR, HUMAN 100 UNIT/1 ML SQ SCH (07:30)
[2022-05-20 08:00] VITALS: BP 173/65
[2022-05-20 08:59] VITALS: BP 173/65
[2022-05-20] MEDS: FERROUS SULFATE 325 MG TAB PO SCH (09:00)
[2022-05-20] MEDS: FLUCONAZOLE 100 MG TAB PO SCH (09:00)
[2022-05-20] MEDS: OFLOXACIN 0.3% (OTIC SOL) 5 ML BTL LEFT EAR SCH (09:00)
[2022-05-20] MEDS: DOCUSATE SODIUM 100 MG CAP PO SCH (09:00)
[2022-05-20] MEDS: ASPIRIN 81 MG CHEW TAB PO SCH (09:00)
[2022-05-20] MEDS: FUROSEMIDE 40 MG TAB PO SCH (09:00)
[2022-05-20] MEDS: METOPROLOL SUCCINATE 50 MG TAB XL PO SCH (09:00)
[2022-05-20] MEDS: SPIRONOLACTONE 25 MG TAB PO SCH (09:00)
[2022-05-20] MEDS: GLIMEPIRIDE 2 MG TAB PO SCH (09:30)
== END 2022-05-20 12:10 | DRG 728 ==
LOC: ER 12:46 → ERHOLD 14:49 → MED/SURG 21:11 → OBSVTOIN 05-13 10:06
PROVIDERS: ADMIT Internal Medicine; ATTEND Internal Medicine
DX: B37.49 Other urogenital candidiasis (principal); I48.21 Permanent atrial fibrillation; G47.33 Obstructive sleep apnea (adult) (pediatric); I12.9 Hypertensive chronic kidney disease with stage 1 through stage 4 chronic kidney disease, or unspecified chronic kidney disease; N18.2 Chronic kidney disease, stage 2 (mild); E11.22 Type 2 diabetes mellitus with diabetic chronic kidney disease; J44.9 Chronic obstructive pulmonary disease, unspecified; E66.01 Morbid (severe) obesity due to excess calories; Z68.35 Body mass index [BMI] 35.0-35.9, adult; E78.00 Pure hypercholesterolemia, unspecified; K21.9 Gastro-esophageal reflux disease without esophagitis; M25.561 Pain in right knee; M25.531 Pain in right wrist; Z79.01 Long term (current) use of anticoagulants; Z86.73 Personal history of transient ischemic attack (TIA), and cerebral infarction without residual deficits; I25.2 Old myocardial infarction; E11.69 Type 2 diabetes mellitus with other specified complication; Z79.899 Other long term (current) drug therapy; Z86.16 Personal history of COVID-19; Z20.822 Contact with and (suspected) exposure to COVID-19
CPT/HCPCS: 0223U; 36415; 51700; 70450; 80048; 80053; 81001; 82948; 83605; 83735; 84484; 85025; 87040; 87086; 93005; 94660; 94664; 94799; 96372; 99251; 99284; G0378; J0696; J1817; J2920; J7030

== ENCOUNTER 2022-06-09 18:11 | Inpatient (IN) | payer MEDICARE ==
[~2022-06-09] VITALS: Ht 180.3 cm; Wt 115.7 kg
[2022-06-09 18:41] LABS: BASOPHILS # (AUTO) 0.1 (0.0-0.1); BASOPHILS % 0.6 % (0.0-1.0); EOSINOPHILS # (AUTO) 0.5 (0.0-0.4); EOSINOPHILS % 5.7 % (0.0-6.0); HEMATOCRIT 33.6 % (38.2-49.6); HEMOGLOBIN 10.5 g/dL (14.0-18.0); LYMPHOCYTES # (AUTO) 1.9 (1.0-3.2); LYMPHOCYTES % 21.2 % (18.0-39.1); MEAN CORPUSCULAR HEMOGLOBIN 29.4 pg (28-32); MEAN CORPUSCULAR HGB CONC 31.3 g/dL (31-35); MEAN CORPUSCULAR VOLUME 94.1 fL (81-99); MONOCYTES # (AUTO) 0.8 (0.2-0.8); MONOCYTES % 8.6 % (4.4-11.3); NEUTROPHILS # (AUTO) 5.6 (2.1-6.9); NEUTROPHILS % 62.8 % (38.7-80.0); PLATELET COUNT 180 x10e3/uL (140-360); RED BLOOD COUNT 3.57 x10e6/uL (4.3-5.7); RED CELL DISTRIBUTION WIDTH 15.6 % (11.7-14.4)
[2022-06-09 18:44] LABS: CLARITY,URINE CLEAR (CLEAR); COLOR,URINE YELLOW (YELLOW); KETONES,URINE NEGATIVE (NEGATIVE); LEUKOCYTE ESTERASE ,URINE TRACE (NEGATIVE); NITRITE,URINE NEGATIVE (NEGATIVE); PROTEIN,URINE DIPSTICK 2+ (NEGATIVE); URINE UROBILINOGEN 0.2 mg/dL (0.2 - 1)
[2022-06-09 18:54] LABS: BACTERIA,URINE FEW /HPF
[2022-06-09 18:56] LABS: ALBUMIN 3.1 g/dL (3.5-5.0); ALBUMIN/GLOBULIN RATIO 0.9 (0.8-2.0); ANION GAP 16.2 mmol/L (8-16); CALCIUM 9.1 mg/dL (8.4-10.2); CREATININE, SERUM 1.59 mg/dL (0.72-1.25); POTASSIUM 4.2 mmol/L (3.5-5.1)
[2022-06-09 19:02] LABS: CREATINE KINASE MB 2.1 ng/mL (0-5.0)
[2022-06-09 19:54] LABS: BASOPHILS # (AUTO) 0.1 (0.0-0.1); BASOPHILS % 0.6 % (0.0-1.0); EOSINOPHILS # (AUTO) 0.5 (0.0-0.4); EOSINOPHILS % 5.7 % (0.0-6.0); HEMATOCRIT 33.6 % (38.2-49.6); HEMOGLOBIN 10.5 g/dL (14.0-18.0); LYMPHOCYTES # (AUTO) 1.9 (1.0-3.2); LYMPHOCYTES % 21.2 % (18.0-39.1); MEAN CORPUSCULAR HEMOGLOBIN 29.4 pg (28-32); MEAN CORPUSCULAR HGB CONC 31.3 g/dL (31-35); MEAN CORPUSCULAR VOLUME 94.1 fL (81-99); MONOCYTES # (AUTO) 0.8 (0.2-0.8); MONOCYTES % 8.6 % (4.4-11.3); NEUTROPHILS # (AUTO) 5.6 (2.1-6.9); NEUTROPHILS % 62.8 % (38.7-80.0); PLATELET COUNT 180 x10e3/uL (140-360); RED BLOOD COUNT 3.57 x10e6/uL (4.3-5.7); RED CELL DISTRIBUTION WIDTH 15.6 % (11.7-14.4)
[2022-06-09 20:49] LABS: CLARITY,URINE CLEAR (CLEAR); COLOR,URINE YELLOW (YELLOW); KETONES,URINE NEGATIVE (NEGATIVE); LEUKOCYTE ESTERASE ,URINE TRACE (NEGATIVE); NITRITE,URINE NEGATIVE (NEGATIVE); PROTEIN,URINE DIPSTICK 2+ (NEGATIVE); URINE UROBILINOGEN 0.2 mg/dL (0.2 - 1)
[2022-06-09 20:57] LABS: BACTERIA,URINE FEW /HPF
[2022-06-09] MEDS ORDERED: ONDANSETRON HCL INJ 2MG/ML 2ML 2 MG/ML VIAL IV PRN (21:15)
[2022-06-09] MEDS ORDERED: DEXTROSE 50% SYRINGE 50 ML IV PRN (21:15)
[2022-06-09] MEDS: SODIUM CHLORIDE 0.9% 1000ML 1,000 ML IV SCH (22:24)
[2022-06-10 04:00] LABS: BASOPHILS # (AUTO) 0.1 (0.0-0.1); BASOPHILS % 0.8 % (0.0-1.0); EOSINOPHILS # (AUTO) 0.5 (0.0-0.4); EOSINOPHILS % 6.2 % (0.0-6.0); HEMATOCRIT 33.4 % (38.2-49.6); HEMOGLOBIN 10.4 g/dL (14.0-18.0); LYMPHOCYTES # (AUTO) 1.7 (1.0-3.2); LYMPHOCYTES % 22.5 % (18.0-39.1); MEAN CORPUSCULAR HEMOGLOBIN 29.2 pg (28-32); MEAN CORPUSCULAR HGB CONC 31.1 g/dL (31-35); MEAN CORPUSCULAR VOLUME 93.8 fL (81-99); MONOCYTES # (AUTO) 0.7 (0.2-0.8); MONOCYTES % 9.4 % (4.4-11.3); NEUTROPHILS # (AUTO) 4.5 (2.1-6.9); NEUTROPHILS % 59.9 % (38.7-80.0); PLATELET COUNT 173 x10e3/uL (140-360); RED BLOOD COUNT 3.56 x10e6/uL (4.3-5.7); RED CELL DISTRIBUTION WIDTH 15.2 % (11.7-14.4)
[2022-06-10 04:19] LABS: ALBUMIN/GLOBULIN RATIO 0.9 (0.8-2.0); CALCIUM 9.3 mg/dL (8.4-10.2); CREATININE, SERUM 1.35 mg/dL (0.72-1.25)
[2022-06-10 04:30] LABS: CREATINE KINASE MB 1.7 ng/mL (0-5.0)
[2022-06-10] MEDS: INSULIN REGULAR, HUMAN 100 UNIT/1 ML SQ SCH ×4 (07:30→22:54)
[2022-06-10] MEDS ORDERED: INSULIN REGULAR, HUMAN 100 UNIT/1 ML SQ SCH (07:30)
[2022-06-10] MEDS ORDERED: HYDRALAZINE HCL 20 MG/ML VIAL IV PRN (09:15)
[2022-06-10] MEDS ORDERED: XARELTO15 MG PO (09:30)
[2022-06-10] MEDS ORDERED: HUMULIN R100 UNIT/2 INJ (09:30)
[2022-06-10] MEDS ORDERED: ADVAIR 250-501 EACH INH (09:30)
[2022-06-10] MEDS ORDERED: PANTOPRAZOLE SO40 MG PO (09:30)
[2022-06-10] MEDS ORDERED: ATORVASTATIN CA10 MG PO (09:30)
[2022-06-10] MEDS ORDERED: COMBIVENT RESPIM4 GM IH (09:30)
[2022-06-10] MEDS ORDERED: FUROSEMIDE40 MG PO (09:30)
[2022-06-10] MEDS ORDERED: MONTELUKAST SOD10 MG PO (09:30)
[2022-06-10] MEDS ORDERED: BISACODYL5 MG PO (09:30)
[2022-06-10] MEDS ORDERED: FERROUS SULFAT325 MG PO (09:30)
[2022-06-10] MEDS ORDERED: VITAMIN D3 MA125 MCG PO (09:30)
[2022-06-10] MEDS ORDERED: DOCUSATE SODIU100 MG PO (09:30)
[2022-06-10] MEDS ORDERED: SPIRONOLACTONE25 MG PO (09:30)
[2022-06-10] MEDS ORDERED: METOPROLOL SUCC50 MG PO (09:30)
[2022-06-10] MEDS ORDERED: LANTUS 3ML100 UNITS/ SQ (09:30)
[2022-06-10] MEDS ORDERED: TRIAMCINOLONE A15 G1 TOP (09:30)
[2022-06-10] MEDS ORDERED: ASPIRIN CHEW81 MG PO (09:30)
[2022-06-10] MEDS ORDERED: ACETAMINOPHEN325 M1 PO (09:30)
[2022-06-10] MEDS ORDERED: DULCOLAX SUPP10 MG RC (09:30)
[2022-06-10] MEDS ORDERED: TRADJENTA5 MG PO (09:30)
[2022-06-10] MEDS: NIFEDIPINE CR 30 MG TAB PO SCH ×2 (10:24→17:58)
[2022-06-10] MEDS: SODIUM CHLORIDE 0.9% 1000ML 1,000 ML IV SCH (10:24)
[2022-06-10 15:44] VITALS: BP 167/69
[2022-06-10 15:45] VITALS: BP 167/69
[2022-06-10 16:36] LABS: CREATINE KINASE MB 2.4 ng/mL (0-5.0)
[2022-06-10 16:38] VITALS: BP 167/69
[2022-06-10] MEDS ORDERED: ENOXAPARIN SOD INJ 40 MG/0.4 ML SYR SC SCH (17:00)
[2022-06-10] MEDS: RIVAROXABAN 15 MG TABLET PO SCH (17:58)
[2022-06-10] MEDS: METOPROLOL SUCCINATE 50 MG TAB XL PO SCH (17:58)
[2022-06-10 20:00] VITALS: BP_SYST 102; BP_SYST 148; BP_DIAS 56; BP_DIAS 79
[2022-06-10] MEDS ORDERED: NON-FORMULARY MEDICATION (Insulin Glargine (Lantus 3ML Pen) 15 UNITS) SQ SCH (21:00)
[2022-06-10] MEDS: INSULIN GLARGINE 100 UNITS/ML VIAL SQ SCH (21:00)
[2022-06-10] MEDS: MONTELUKAST SODIUM 10 MG TAB PO SCH (21:09)
[2022-06-10] MEDS: ATORVASTATIN 10 MG TAB PO SCH (21:09)
[2022-06-10] MEDS: PANTOPRAZOLE SOD 40 MG TABEC PO SCH (21:09)
[2022-06-11 01:13] VITALS: BP 122/69
[2022-06-11] MEDS: SODIUM CHLORIDE 0.9% 1000ML 1,000 ML IV SCH (01:18)
[2022-06-11] MEDS: SALMETEROL/FLUTICASONE 250/50 INH SCH (05:16)
[2022-06-11 05:44] VITALS: BP 150/64
[2022-06-11 05:52] LABS: BASOPHILS # (AUTO) 0.1 (0.0-0.1); BASOPHILS % 0.6 % (0.0-1.0); EOSINOPHILS # (AUTO) 0.5 (0.0-0.4); EOSINOPHILS % 4.8 % (0.0-6.0); LYMPHOCYTES # (AUTO) 1.4 (1.0-3.2); LYMPHOCYTES % 13.9 % (18.0-39.1); MEAN CORPUSCULAR HEMOGLOBIN 30.1 pg (28-32); MEAN CORPUSCULAR HGB CONC 32.4 g/dL (31-35); MEAN CORPUSCULAR VOLUME 92.9 fL (81-99); MONOCYTES # (AUTO) 0.9 (0.2-0.8); MONOCYTES % 8.7 % (4.4-11.3); NEUTROPHILS # (AUTO) 7.1 (2.1-6.9); NEUTROPHILS % 71.2 % (38.7-80.0); PLATELET COUNT 192 x10e3/uL (140-360); RED BLOOD COUNT 3.66 x10e6/uL (4.3-5.7); RED CELL DISTRIBUTION WIDTH 15.2 % (11.7-14.4)
[2022-06-11 06:20] LABS: ANION GAP 19.9 mmol/L (8-16); CALCIUM 8.9 mg/dL (8.4-10.2); CREATININE, SERUM 1.31 mg/dL (0.72-1.25); POTASSIUM 3.9 mmol/L (3.5-5.1)
[2022-06-11 08:00] VITALS: BP 150/62
[2022-06-11 08:08] VITALS: BP 150/62
[2022-06-11] MEDS ORDERED: ASPIRIN 81 MG CHEW TAB PO SCH (09:00)
[2022-06-11] MEDS ORDERED: RIVAROXABAN 15 MG TABLET PO SCH (09:00)
[2022-06-11] MEDS: METOPROLOL SUCCINATE 50 MG TAB XL PO SCH ×2 (09:55→17:18)
[2022-06-11] MEDS: NIFEDIPINE CR 30 MG TAB PO SCH ×2 (09:55→17:19)
[2022-06-11] MEDS: INSULIN REGULAR, HUMAN 100 UNIT/1 ML SQ SCH ×4 (10:43→21:00)
[2022-06-11] MEDS ORDERED: ONDANSETRON HCL 4 MG ORAL DISINTEGRATING TAB PO PRN (11:15)
[2022-06-11 17:19] VITALS: BP 149/60
[2022-06-11] MEDS: RIVAROXABAN 15 MG TABLET PO SCH (17:19)
[2022-06-11] MEDS: INSULIN GLARGINE 100 UNITS/ML VIAL SQ SCH (21:00)
[2022-06-11] MEDS: MONTELUKAST SODIUM 10 MG TAB PO SCH (21:38)
[2022-06-11] MEDS: ATORVASTATIN 10 MG TAB PO SCH (21:38)
[2022-06-11] MEDS: PANTOPRAZOLE SOD 40 MG TABEC PO SCH (21:38)
[2022-06-11 21:56] VITALS: BP_SYST 143; BP_SYST 149; BP_DIAS 60
[2022-06-11] MEDS ORDERED: FUROSEMIDE INJ 10 MG/ML 4 ML VIAL IV ONE (23:15)
[2022-06-12] VITALS (26 sets, daily range): BP systolic 107–184; BP diastolic 46–107
[2022-06-12] MEDS: ALBUTEROL/IPRATROPIUM 3 ML NEB NEB SCH ×5 (00:02→20:20)
[2022-06-12] MEDS ORDERED: FUROSEMIDE INJ 10 MG/ML 4 ML VIAL IV ONE (02:00)
[2022-06-12] MEDS ORDERED: METHYLPREDNISOLONE SOD SUCC 125 MG/2ML VIAL IV ONE (02:00)
[2022-06-12 02:18] LABS: ABG HCO3 23 mmol/L (22-26); ABG PCO2 31 mmHg (35-45); ABG PH 7.46 (7.35-7.45); ABG PO2 59 mmHg (80-105); ABG TCO2 23
[2022-06-12] MEDS ORDERED: Vancomycin IV 1 GM in SODIUM CHLORIDE 0.9% 250ML 250 ML IV ONE (02:30)
[2022-06-12] MEDS ORDERED: ALBUTEROL/IPRATROPIUM 3 ML NEB NEB SCH (03:00)
[2022-06-12] MEDS: SALMETEROL/FLUTICASONE 250/50 INH SCH (06:00)
[2022-06-12 07:34] LABS: BASOPHILS % 0.2 % (0.0-1.0); HEMATOCRIT 30.7 % (38.2-49.6); HEMOGLOBIN 9.6 g/dL (14.0-18.0); LYMPHOCYTES # (AUTO) 0.5 (1.0-3.2); LYMPHOCYTES % 3.5 % (18.0-39.1); MEAN CORPUSCULAR HEMOGLOBIN 29.6 pg (28-32); MEAN CORPUSCULAR HGB CONC 31.3 g/dL (31-35); MEAN CORPUSCULAR VOLUME 94.8 fL (81-99); MONOCYTES # (AUTO) 0.5 (0.2-0.8); MONOCYTES % 3.7 % (4.4-11.3); NEUTROPHILS # (AUTO) 12.1 (2.1-6.9); NEUTROPHILS % 91.9 % (38.7-80.0); PLATELET COUNT 158 x10e3/uL (140-360); RED BLOOD COUNT 3.24 x10e6/uL (4.3-5.7); RED CELL DISTRIBUTION WIDTH 15.7 % (11.7-14.4)
[2022-06-12 08:21] LABS: ANION GAP 21.4 mmol/L (8-16); CALCIUM 8.4 mg/dL (8.4-10.2); CREATININE, SERUM 1.49 mg/dL (0.72-1.25); POTASSIUM 4.4 mmol/L (3.5-5.1)
[2022-06-12] MEDS: INSULIN REGULAR, HUMAN 100 UNIT/1 ML SQ SCH ×4 (08:46→20:35)
[2022-06-12] MEDS: NIFEDIPINE CR 30 MG TAB PO SCH ×2 (08:58→16:44)
[2022-06-12] MEDS: METOPROLOL SUCCINATE 50 MG TAB XL PO SCH ×2 (08:59→16:44)
[2022-06-12] MEDS: MEROPENEM 1 GM in SODIUM CHLORIDE 0.9% 100 ML IV SCH ×2 (11:25→20:03)
[2022-06-12] MEDS: FUROSEMIDE INJ 10 MG/ML 4 ML VIAL IV SCH ×2 (11:25→20:03)
[2022-06-12] MEDS: RIVAROXABAN 15 MG TABLET PO SCH (16:44)
[2022-06-12] MEDS: DEXMEDETOMIDINE 400MCG/NS100ML 100 ML IV PRN (19:16)
[2022-06-12] MEDS: MONTELUKAST SODIUM 10 MG TAB PO SCH (20:17)
[2022-06-12] MEDS: ATORVASTATIN 10 MG TAB PO SCH (20:17)
[2022-06-12] MEDS: BUDESONIDE 0.5MG/2 ML NEB INH SCH (20:20)
[2022-06-12] MEDS: PANTOPRAZOLE SOD 40 MG TABEC PO SCH (20:34)
[2022-06-12] MEDS: INSULIN GLARGINE 100 UNITS/ML VIAL SQ SCH (20:36)
[2022-06-12] MEDS: ACETAMINOPHEN 1000 MG/100 ML IV PRN (21:15)
[2022-06-13] VITALS (32 sets, daily range): BP systolic 99–166; BP diastolic 15–129
[2022-06-13] MEDS: ALBUTEROL/IPRATROPIUM 3 ML NEB NEB SCH ×4 (03:40→19:40)
[2022-06-13] MEDS: ACETAMINOPHEN 1000 MG/100 ML IV PRN (04:17)
[2022-06-13] MEDS: SALMETEROL/FLUTICASONE 250/50 INH SCH (06:00)
[2022-06-13 07:14] LABS: BASOPHILS % 0.3 % (0.0-1.0); EOSINOPHILS % 0.3 % (0.0-6.0); HEMATOCRIT 25.7 % (38.2-49.6); HEMOGLOBIN 8.6 g/dL (14.0-18.0); LYMPHOCYTES # (AUTO) 0.3 (1.0-3.2); LYMPHOCYTES % 5.2 % (18.0-39.1); MEAN CORPUSCULAR HGB CONC 33.5 g/dL (31-35); MEAN CORPUSCULAR VOLUME 89.5 fL (81-99); MONOCYTES # (AUTO) 0.4 (0.2-0.8); NEUTROPHILS # (AUTO) 5.5 (2.1-6.9); NEUTROPHILS % 86.6 % (38.7-80.0); PLATELET COUNT 124 x10e3/uL (140-360); RED BLOOD COUNT 2.87 x10e6/uL (4.3-5.7); RED CELL DISTRIBUTION WIDTH 15.9 % (11.7-14.4)
[2022-06-13] MEDS: INSULIN REGULAR, HUMAN 100 UNIT/1 ML SQ SCH ×4 (07:30→21:04)
[2022-06-13 07:44] LABS: ALBUMIN 2.3 g/dL (3.5-5.0); ALBUMIN/GLOBULIN RATIO 0.7 (0.8-2.0); ANION GAP 18.1 mmol/L (8-16); CALCIUM 8.1 mg/dL (8.4-10.2); CREATININE, SERUM 1.55 mg/dL (0.72-1.25); POTASSIUM 4.1 mmol/L (3.5-5.1)
[2022-06-13] MEDS: BUDESONIDE 0.5MG/2 ML NEB INH SCH ×2 (07:45→19:40)
[2022-06-13] MEDS: MEROPENEM 1 GM in SODIUM CHLORIDE 0.9% 100 ML IV SCH ×2 (08:01→21:06)
[2022-06-13] MEDS: FUROSEMIDE INJ 10 MG/ML 4 ML VIAL IV SCH ×2 (08:02→21:07)
[2022-06-13] MEDS: METOPROLOL SUCCINATE 50 MG TAB XL PO SCH ×2 (08:03→16:42)
[2022-06-13] MEDS: NIFEDIPINE CR 30 MG TAB PO SCH ×2 (08:03→16:42)
[2022-06-13 09:43] LABS: % IRON SATURATION 9 % (15-50); IRON 16 ug/dL (65-175); TOTAL IRON BINDING CAPACITY 179 ug/dL (261-478); TRANSFERRIN 128 mg/dL (174-364)
[2022-06-13 11:57] LABS: ABG HCO3 24 mmol/L (22-26); ABG PCO2 35 mmHg (35-45); ABG PH 7.45 (7.35-7.45); ABG PO2 88 mmHg (80-105); ABG TCO2 25
[2022-06-13] MEDS ORDERED: METHYLPREDNISOLONE SOD SUCC 40 MG/ML VIAL 1ML IV ONE (12:30)
[2022-06-13] MEDS: HYDROCODONE/APAP 5MG-325MG TAB PO PRN (12:31)
[2022-06-13] MEDS: IRON SUCROSE 100 MG in SODIUM CHLORIDE 0.9% 100 ML IV SCH (12:37)
[2022-06-13] MEDS: DEXMEDETOMIDINE 400MCG/NS100ML 100 ML IV PRN (14:38)
[2022-06-13] MEDS: RIVAROXABAN 15 MG TABLET PO SCH (16:42)
[2022-06-13] MEDS: INSULIN GLARGINE 100 UNITS/ML VIAL SQ SCH (21:05)
[2022-06-13] MEDS: ATORVASTATIN 10 MG TAB PO SCH (21:06)
[2022-06-13] MEDS: MONTELUKAST SODIUM 10 MG TAB PO SCH (21:06)
[2022-06-13] MEDS: PANTOPRAZOLE SOD 40 MG TABEC PO SCH (21:08)
[2022-06-14] VITALS (39 sets, daily range): BP systolic 72–156; BP diastolic 36–112
[2022-06-14] MEDS: ALBUTEROL/IPRATROPIUM 3 ML NEB NEB SCH ×4 (03:00→19:30)
[2022-06-14 04:59] LABS: HEMATOCRIT 28.3 % (38.2-49.6); HEMOGLOBIN 8.9 g/dL (14.0-18.0); LYMPHOCYTES # (AUTO) 0.7 (1.0-3.2); LYMPHOCYTES % 12.1 % (18.0-39.1); MEAN CORPUSCULAR HEMOGLOBIN 29.4 pg (28-32); MEAN CORPUSCULAR HGB CONC 31.4 g/dL (31-35); MEAN CORPUSCULAR VOLUME 93.4 fL (81-99); MONOCYTES # (AUTO) 0.5 (0.2-0.8); MONOCYTES % 8.4 % (4.4-11.3); NEUTROPHILS # (AUTO) 4.3 (2.1-6.9); NEUTROPHILS % 78.2 % (38.7-80.0); PLATELET COUNT 122 x10e3/uL (140-360); RED BLOOD COUNT 3.03 x10e6/uL (4.3-5.7); RED CELL DISTRIBUTION WIDTH 15.3 % (11.7-14.4)
[2022-06-14 05:15] LABS: ALBUMIN 2.4 g/dL (3.5-5.0); ALBUMIN/GLOBULIN RATIO 0.7 (0.8-2.0); ANION GAP 21.3 mmol/L (8-16); CALCIUM 8.3 mg/dL (8.4-10.2); CREATININE, SERUM 1.69 mg/dL (0.72-1.25); POTASSIUM 4.3 mmol/L (3.5-5.1)
[2022-06-14] MEDS: DEXMEDETOMIDINE 400MCG/NS100ML 100 ML IV PRN ×2 (05:34→19:53)
[2022-06-14] MEDS: SALMETEROL/FLUTICASONE 250/50 INH SCH (06:00)
[2022-06-14] MEDS: BUDESONIDE 0.5MG/2 ML NEB INH SCH ×2 (06:10→19:30)
[2022-06-14] MEDS: INSULIN REGULAR, HUMAN 100 UNIT/1 ML SQ SCH ×4 (07:49→21:00)
[2022-06-14] MEDS: METHYLPREDNISOLONE SOD SUCC 40 MG/ML VIAL 1ML IV SCH (07:51)
[2022-06-14] MEDS: FUROSEMIDE INJ 10 MG/ML 4 ML VIAL IV SCH (08:36)
[2022-06-14] MEDS: MEROPENEM 1 GM in SODIUM CHLORIDE 0.9% 100 ML IV SCH ×2 (08:37→20:57)
[2022-06-14] MEDS: NIFEDIPINE CR 30 MG TAB PO SCH ×2 (08:38→17:18)
[2022-06-14] MEDS: METOPROLOL SUCCINATE 50 MG TAB XL PO SCH ×2 (08:38→17:18)
[2022-06-14] MEDS: IRON SUCROSE 100 MG in SODIUM CHLORIDE 0.9% 100 ML IV SCH (12:12)
[2022-06-14] MEDS: RIVAROXABAN 15 MG TABLET PO SCH (16:45)
[2022-06-14] MEDS: MONTELUKAST SODIUM 10 MG TAB PO SCH (20:57)
[2022-06-14] MEDS: PANTOPRAZOLE SOD 40 MG TABEC PO SCH (20:57)
[2022-06-14] MEDS: ATORVASTATIN 10 MG TAB PO SCH (20:57)
[2022-06-14] MEDS: INSULIN GLARGINE 100 UNITS/ML VIAL SQ SCH (21:01)
[2022-06-15] VITALS (42 sets, daily range): BP systolic 105–179; BP diastolic 53–87
[2022-06-15] MEDS: ALBUTEROL/IPRATROPIUM 3 ML NEB NEB SCH ×4 (00:10→19:30)
[2022-06-15] MEDS: SALMETEROL/FLUTICASONE 250/50 INH SCH (06:00)
[2022-06-15] MEDS: BUDESONIDE 0.5MG/2 ML NEB INH SCH ×2 (07:00→19:30)
[2022-06-15] MEDS: INSULIN REGULAR, HUMAN 100 UNIT/1 ML SQ SCH ×4 (07:29→20:40)
[2022-06-15] MEDS: MEROPENEM 1 GM in SODIUM CHLORIDE 0.9% 100 ML IV SCH ×2 (08:07→20:22)
[2022-06-15] MEDS: METHYLPREDNISOLONE SOD SUCC 40 MG/ML VIAL 1ML IV SCH (08:07)
[2022-06-15] MEDS: NIFEDIPINE CR 30 MG TAB PO SCH ×2 (08:08→16:23)
[2022-06-15] MEDS: METOPROLOL SUCCINATE 50 MG TAB XL PO SCH ×2 (08:08→16:24)
[2022-06-15 10:17] LABS: BASOPHILS % 0.2 % (0.0-1.0); EOSINOPHILS # (AUTO) 0.2 (0.0-0.4); EOSINOPHILS % 2.1 % (0.0-6.0); HEMATOCRIT 30.9 % (38.2-49.6); HEMOGLOBIN 9.7 g/dL (14.0-18.0); LYMPHOCYTES # (AUTO) 0.7 (1.0-3.2); LYMPHOCYTES % 6.2 % (18.0-39.1); MEAN CORPUSCULAR HEMOGLOBIN 29.4 pg (28-32); MEAN CORPUSCULAR HGB CONC 31.4 g/dL (31-35); MEAN CORPUSCULAR VOLUME 93.6 fL (81-99); MONOCYTES # (AUTO) 0.8 (0.2-0.8); MONOCYTES % 7.1 % (4.4-11.3); NEUTROPHILS # (AUTO) 9.2 (2.1-6.9); PLATELET COUNT 134 x10e3/uL (140-360); RED CELL DISTRIBUTION WIDTH 15.2 % (11.7-14.4)
[2022-06-15 10:33] LABS: CALCIUM 8.6 mg/dL (8.4-10.2); CREATININE, SERUM 1.5 mg/dL (0.72-1.25)
[2022-06-15] MEDS: IRON SUCROSE 100 MG in SODIUM CHLORIDE 0.9% 100 ML IV SCH (12:32)
[2022-06-15] MEDS: RIVAROXABAN 15 MG TABLET PO SCH (16:22)
[2022-06-15] MEDS: PANTOPRAZOLE SOD 40 MG TABEC PO SCH (20:21)
[2022-06-15] MEDS: MONTELUKAST SODIUM 10 MG TAB PO SCH (20:21)
[2022-06-15] MEDS: ATORVASTATIN 10 MG TAB PO SCH (20:21)
[2022-06-15] MEDS: MELATONIN 3 MG TAB PO SCH (20:22)
[2022-06-15] MEDS: INSULIN GLARGINE 100 UNITS/ML VIAL SQ SCH (20:40)
[2022-06-16] VITALS (19 sets, daily range): BP systolic 130–206; BP diastolic 60–90
[2022-06-16] MEDS: ALBUTEROL/IPRATROPIUM 3 ML NEB NEB SCH ×4 (02:10→19:35)
[2022-06-16] MEDS: SALMETEROL/FLUTICASONE 250/50 INH SCH (06:00)
[2022-06-16 07:11] LABS: BASOPHILS % 0.3 % (0.0-1.0); EOSINOPHILS # (AUTO) 0.1 (0.0-0.4); EOSINOPHILS % 0.9 % (0.0-6.0); HEMATOCRIT 32.7 % (38.2-49.6); HEMOGLOBIN 10.4 g/dL (14.0-18.0); LYMPHOCYTES # (AUTO) 1.6 (1.0-3.2); LYMPHOCYTES % 11.8 % (18.0-39.1); MEAN CORPUSCULAR HEMOGLOBIN 29.6 pg (28-32); MEAN CORPUSCULAR HGB CONC 31.8 g/dL (31-35); MEAN CORPUSCULAR VOLUME 93.2 fL (81-99); MONOCYTES # (AUTO) 1.3 (0.2-0.8); MONOCYTES % 9.6 % (4.4-11.3); NEUTROPHILS # (AUTO) 10.3 (2.1-6.9); NEUTROPHILS % 76.1 % (38.7-80.0); PLATELET COUNT 168 x10e3/uL (140-360); RED BLOOD COUNT 3.51 x10e6/uL (4.3-5.7); RED CELL DISTRIBUTION WIDTH 15.1 % (11.7-14.4)
[2022-06-16] MEDS: BUDESONIDE 0.5MG/2 ML NEB INH SCH ×2 (07:20→19:35)
[2022-06-16 07:36] LABS: CALCIUM 9.2 mg/dL (8.4-10.2); CREATININE, SERUM 1.51 mg/dL (0.72-1.25)
[2022-06-16 07:50] LABS: MAGNESIUM 1.5 MG/DL (1.3-2.1); PHOSPHORUS 1.9 MG/DL (2.3-4.7)
[2022-06-16] MEDS: METHYLPREDNISOLONE SOD SUCC 40 MG/ML VIAL 1ML IV SCH (08:16)
[2022-06-16] MEDS: INSULIN REGULAR, HUMAN 100 UNIT/1 ML SQ SCH ×4 (08:16→20:12)
[2022-06-16] MEDS ORDERED: MAGNESIUM SULFATE 2GM/50ML IV ONE (09:15)
[2022-06-16] MEDS: MEROPENEM 1 GM in SODIUM CHLORIDE 0.9% 100 ML IV SCH ×2 (09:25→20:01)
[2022-06-16] MEDS: NIFEDIPINE CR 30 MG TAB PO SCH ×2 (09:31→17:38)
[2022-06-16] MEDS: METOPROLOL SUCCINATE 50 MG TAB XL PO SCH ×2 (09:31→17:39)
[2022-06-16] MEDS ORDERED: SODIUM CHLORIDE 0.9% 1000ML 1,000 ML IV SCH (09:45)
[2022-06-16] MEDS ORDERED: MAGNESIUM SULFATE 2GM/50ML 50 ML IV ONE (10:00)
[2022-06-16] MEDS: RIVAROXABAN 15 MG TABLET PO SCH (17:32)
[2022-06-16] MEDS: PANTOPRAZOLE SOD 40 MG TABEC PO SCH (20:01)
[2022-06-16] MEDS: ATORVASTATIN 10 MG TAB PO SCH (20:01)
[2022-06-16] MEDS: MONTELUKAST SODIUM 10 MG TAB PO SCH (20:01)
[2022-06-16] MEDS: MELATONIN 3 MG TAB PO SCH (20:08)
[2022-06-16] MEDS: INSULIN GLARGINE 100 UNITS/ML VIAL SQ SCH (20:12)
[2022-06-17] VITALS (26 sets, daily range): BP systolic 135–182; BP diastolic 58–156
[2022-06-17] MEDS: ALBUTEROL/IPRATROPIUM 3 ML NEB NEB SCH ×4 (00:42→18:00)
[2022-06-17] MEDS: BUDESONIDE 0.5MG/2 ML NEB INH SCH (05:55)
[2022-06-17] MEDS: SALMETEROL/FLUTICASONE 250/50 INH SCH (06:00)
[2022-06-17 07:01] LABS: BASOPHILS # (AUTO) 0.1 (0.0-0.1); BASOPHILS % 0.4 % (0.0-1.0); EOSINOPHILS # (AUTO) 0.1 (0.0-0.4); EOSINOPHILS % 0.9 % (0.0-6.0); HEMATOCRIT 32.4 % (38.2-49.6); HEMOGLOBIN 10.2 g/dL (14.0-18.0); LYMPHOCYTES # (AUTO) 1.8 (1.0-3.2); LYMPHOCYTES % 12.7 % (18.0-39.1); MEAN CORPUSCULAR HEMOGLOBIN 29.5 pg (28-32); MEAN CORPUSCULAR HGB CONC 31.5 g/dL (31-35); MEAN CORPUSCULAR VOLUME 93.6 fL (81-99); MONOCYTES # (AUTO) 1.4 (0.2-0.8); MONOCYTES % 10.2 % (4.4-11.3); NEUTROPHILS # (AUTO) 10.3 (2.1-6.9); NEUTROPHILS % 73.4 % (38.7-80.0); PLATELET COUNT 147 x10e3/uL (140-360); RED BLOOD COUNT 3.46 x10e6/uL (4.3-5.7); RED CELL DISTRIBUTION WIDTH 15.2 % (11.7-14.4)
[2022-06-17 07:17] LABS: ANION GAP 17.6 mmol/L (8-16); CALCIUM 9.3 mg/dL (8.4-10.2); CREATININE, SERUM 1.22 mg/dL (0.72-1.25)
[2022-06-17 07:26] LABS: POTASSIUM 5.6 mmol/L (3.5-5.1)
[2022-06-17] MEDS ORDERED: PREDNISONE 20 MG TAB PO SCH (09:00)
[2022-06-17] MEDS: NIFEDIPINE CR 30 MG TAB PO SCH ×2 (09:52→16:58)
[2022-06-17] MEDS: METOPROLOL SUCCINATE 50 MG TAB XL PO SCH ×2 (09:52→16:59)
[2022-06-17] MEDS: MEROPENEM 1 GM in SODIUM CHLORIDE 0.9% 100 ML IV SCH (09:52)
[2022-06-17] MEDS ORDERED: FUROSEMIDE 20 MG TAB PO SCH (10:30)
[2022-06-17] MEDS: INSULIN REGULAR, HUMAN 100 UNIT/1 ML SQ SCH ×2 (16:09→22:03)
[2022-06-17] MEDS: RIVAROXABAN 15 MG TABLET PO SCH (16:58)
[2022-06-17] MEDS: FUROSEMIDE 20 MG TAB PO SCH (18:24)
[2022-06-17] MEDS: PANTOPRAZOLE SOD 40 MG TABEC PO SCH (21:58)
[2022-06-17] MEDS: ATORVASTATIN 10 MG TAB PO SCH (21:58)
[2022-06-17] MEDS: MELATONIN 3 MG TAB PO SCH (21:58)
[2022-06-17] MEDS: MONTELUKAST SODIUM 10 MG TAB PO SCH (21:58)
[2022-06-17] MEDS: INSULIN GLARGINE 100 UNITS/ML VIAL SQ SCH (21:59)
[2022-06-18] VITALS (24 sets, daily range): BP systolic 123–156; BP diastolic 56–102
[2022-06-18] MEDS: ALBUTEROL/IPRATROPIUM 3 ML NEB NEB SCH ×4 (01:00→19:10)
[2022-06-18] MEDS: FUROSEMIDE 20 MG TAB PO SCH ×2 (05:19→17:20)
[2022-06-18] MEDS: SALMETEROL/FLUTICASONE 250/50 INH SCH (06:00)
[2022-06-18 07:16] LABS: BASOPHILS % 0.3 % (0.0-1.0); EOSINOPHILS # (AUTO) 0.2 (0.0-0.4); HEMATOCRIT 29.2 % (38.2-49.6); HEMOGLOBIN 9.1 g/dL (14.0-18.0); LYMPHOCYTES # (AUTO) 1.6 (1.0-3.2); LYMPHOCYTES % 13.3 % (18.0-39.1); MEAN CORPUSCULAR HEMOGLOBIN 29.3 pg (28-32); MEAN CORPUSCULAR HGB CONC 31.2 g/dL (31-35); MEAN CORPUSCULAR VOLUME 93.9 fL (81-99); MONOCYTES # (AUTO) 1.1 (0.2-0.8); MONOCYTES % 8.9 % (4.4-11.3); NEUTROPHILS # (AUTO) 8.7 (2.1-6.9); NEUTROPHILS % 73.1 % (38.7-80.0); PLATELET COUNT 167 x10e3/uL (140-360); RED BLOOD COUNT 3.11 x10e6/uL (4.3-5.7); RED CELL DISTRIBUTION WIDTH 15.3 % (11.7-14.4)
[2022-06-18 07:37] LABS: CREATININE, SERUM 1.18 mg/dL (0.72-1.25)
[2022-06-18] MEDS: METOPROLOL SUCCINATE 50 MG TAB XL PO SCH ×2 (09:17→16:43)
[2022-06-18] MEDS: NIFEDIPINE CR 30 MG TAB PO SCH ×2 (09:17→16:43)
[2022-06-18] MEDS: PREDNISONE 10 MG TAB PO SCH (09:18)
[2022-06-18] MEDS: INSULIN REGULAR, HUMAN 100 UNIT/1 ML SQ SCH ×2 (11:30→15:45)
[2022-06-18] MEDS: HYDROCODONE/APAP 5MG-325MG TAB PO PRN (15:48)
[2022-06-18] MEDS: RIVAROXABAN 15 MG TABLET PO SCH (16:43)
[2022-06-18] MEDS: INSULIN GLARGINE 100 UNITS/ML VIAL SQ SCH (21:00)
[2022-06-18] MEDS: MELATONIN 3 MG TAB PO SCH (21:42)
[2022-06-18] MEDS: MONTELUKAST SODIUM 10 MG TAB PO SCH (21:42)
[2022-06-18] MEDS: PANTOPRAZOLE SOD 40 MG TABEC PO SCH (21:42)
[2022-06-18] MEDS: ATORVASTATIN 10 MG TAB PO SCH (21:42)
[2022-06-19] VITALS (23 sets, daily range): BP systolic 137–187; BP diastolic 57–141
[2022-06-19] MEDS: ALBUTEROL/IPRATROPIUM 3 ML NEB NEB SCH ×4 (02:50→19:10)
[2022-06-19] MEDS: FUROSEMIDE 20 MG TAB PO SCH ×2 (06:41→17:36)
[2022-06-19] MEDS: INSULIN REGULAR, HUMAN 100 UNIT/1 ML SQ SCH ×3 (07:41→16:51)
[2022-06-19] MEDS: PREDNISONE 10 MG TAB PO SCH (08:15)
[2022-06-19] MEDS: NIFEDIPINE CR 30 MG TAB PO SCH ×2 (08:18→17:11)
[2022-06-19] MEDS: METOPROLOL SUCCINATE 50 MG TAB XL PO SCH ×2 (08:18→17:10)
[2022-06-19] MEDS: SALMETEROL/FLUTICASONE 250/50 INH SCH (10:20)
[2022-06-19 10:27] LABS: BASOPHILS % 0.3 % (0.0-1.0); EOSINOPHILS # (AUTO) 0.6 (0.0-0.4); EOSINOPHILS % 5.9 % (0.0-6.0); HEMATOCRIT 30.3 % (38.2-49.6); HEMOGLOBIN 9.4 g/dL (14.0-18.0); LYMPHOCYTES # (AUTO) 1.1 (1.0-3.2); LYMPHOCYTES % 11.3 % (18.0-39.1); MEAN CORPUSCULAR HEMOGLOBIN 29.7 pg (28-32); MEAN CORPUSCULAR VOLUME 95.6 fL (81-99); MONOCYTES # (AUTO) 0.8 (0.2-0.8); MONOCYTES % 7.6 % (4.4-11.3); NEUTROPHILS # (AUTO) 7.2 (2.1-6.9); PLATELET COUNT 205 x10e3/uL (140-360); RED BLOOD COUNT 3.17 x10e6/uL (4.3-5.7); RED CELL DISTRIBUTION WIDTH 15.3 % (11.7-14.4)
[2022-06-19 10:52] LABS: ANION GAP 13.3 mmol/L (8-16); CALCIUM 8.7 mg/dL (8.4-10.2); CREATININE, SERUM 1.09 mg/dL (0.72-1.25); POTASSIUM 4.3 mmol/L (3.5-5.1)
[2022-06-19] MEDS ORDERED: CEPACOL SORE THROAT LOZENGES PO PRN (12:45)
[2022-06-19] MEDS: RIVAROXABAN 15 MG TABLET PO SCH (17:11)
[2022-06-19] MEDS: PANTOPRAZOLE SOD 40 MG TABEC PO SCH (21:53)
[2022-06-19] MEDS: MONTELUKAST SODIUM 10 MG TAB PO SCH (21:53)
[2022-06-19] MEDS: ATORVASTATIN 10 MG TAB PO SCH (21:53)
[2022-06-19] MEDS: MELATONIN 3 MG TAB PO SCH (21:53)
[2022-06-19] MEDS ORDERED: MEROPENEM 500 MG VIAL ONE (21:59)
[2022-06-19] MEDS: INSULIN GLARGINE 100 UNITS/ML VIAL SQ SCH (22:01)
[2022-06-20] VITALS (23 sets, daily range): BP systolic 132–164; BP diastolic 62–116
[2022-06-20] MEDS: ALBUTEROL/IPRATROPIUM 3 ML NEB NEB SCH ×4 (02:40→19:25)
[2022-06-20] MEDS: FUROSEMIDE 20 MG TAB PO SCH ×2 (06:15→17:05)
[2022-06-20 07:03] LABS: BASOPHILS % 0.3 % (0.0-1.0); EOSINOPHILS # (AUTO) 0.3 (0.0-0.4); EOSINOPHILS % 3.8 % (0.0-6.0); HEMATOCRIT 28.3 % (38.2-49.6); HEMOGLOBIN 9.1 g/dL (14.0-18.0); LYMPHOCYTES # (AUTO) 1.2 (1.0-3.2); LYMPHOCYTES % 15.3 % (18.0-39.1); MEAN CORPUSCULAR HEMOGLOBIN 29.3 pg (28-32); MEAN CORPUSCULAR HGB CONC 32.2 g/dL (31-35); MONOCYTES # (AUTO) 0.6 (0.2-0.8); MONOCYTES % 7.8 % (4.4-11.3); NEUTROPHILS # (AUTO) 5.5 (2.1-6.9); NEUTROPHILS % 70.2 % (38.7-80.0); PLATELET COUNT 169 x10e3/uL (140-360); RED BLOOD COUNT 3.11 x10e6/uL (4.3-5.7); RED CELL DISTRIBUTION WIDTH 15.5 % (11.7-14.4)
[2022-06-20 07:27] LABS: ANION GAP 11.3 mmol/L (8-16); CALCIUM 8.7 mg/dL (8.4-10.2); CREATININE, SERUM 1.14 mg/dL (0.72-1.25); POTASSIUM 4.3 mmol/L (3.5-5.1)
[2022-06-20] MEDS: INSULIN REGULAR, HUMAN 100 UNIT/1 ML SQ SCH ×3 (07:49→16:39)
[2022-06-20] MEDS: NIFEDIPINE CR 30 MG TAB PO SCH ×2 (08:25→16:43)
[2022-06-20] MEDS: PREDNISONE 10 MG TAB PO SCH (08:25)
[2022-06-20] MEDS: METOPROLOL SUCCINATE 50 MG TAB XL PO SCH (08:26)
[2022-06-20] MEDS: FLUCONAZOLE 100 MG TAB PO SCH (10:02)
[2022-06-20] MEDS: SALMETEROL/FLUTICASONE 250/50 INH SCH (13:20)
[2022-06-20] MEDS: RIVAROXABAN 15 MG TABLET PO SCH (16:43)
[2022-06-20] MEDS: MONTELUKAST SODIUM 10 MG TAB PO SCH (20:30)
[2022-06-20] MEDS: ATORVASTATIN 10 MG TAB PO SCH (20:30)
[2022-06-20] MEDS: PANTOPRAZOLE SOD 40 MG TABEC PO SCH (20:30)
[2022-06-20] MEDS: MELATONIN 3 MG TAB PO SCH (21:00)
[2022-06-20] MEDS: INSULIN GLARGINE 100 UNITS/ML VIAL SQ SCH (21:40)
[2022-06-21] VITALS (16 sets, daily range): BP systolic 135–165; BP diastolic 60–135
[2022-06-21] MEDS: ALBUTEROL/IPRATROPIUM 3 ML NEB NEB SCH ×4 (01:05→19:10)
[2022-06-21] MEDS: FUROSEMIDE 20 MG TAB PO SCH ×2 (06:03→17:30)
[2022-06-21] MEDS: INSULIN REGULAR, HUMAN 100 UNIT/1 ML SQ SCH ×3 (07:30→16:43)
[2022-06-21] MEDS: METOPROLOL SUCCINATE 50 MG TAB XL PO SCH (08:32)
[2022-06-21] MEDS: FLUCONAZOLE 100 MG TAB PO SCH (08:32)
[2022-06-21] MEDS: NIFEDIPINE CR 30 MG TAB PO SCH ×2 (08:32→17:30)
[2022-06-21] MEDS: SALMETEROL/FLUTICASONE 250/50 INH SCH ×2 (13:35→19:20)
[2022-06-21] MEDS: RIVAROXABAN 15 MG TABLET PO SCH (17:29)
[2022-06-21] MEDS: PANTOPRAZOLE SOD 40 MG TABEC PO SCH (20:05)
[2022-06-21] MEDS: MELATONIN 3 MG TAB PO SCH (20:05)
[2022-06-21] MEDS: MONTELUKAST SODIUM 10 MG TAB PO SCH (20:05)
[2022-06-21] MEDS: ATORVASTATIN 10 MG TAB PO SCH (20:05)
[2022-06-21] MEDS: INSULIN GLARGINE 100 UNITS/ML VIAL SQ SCH (20:07)
[2022-06-22] VITALS (8 sets, daily range): BP systolic 135–156; BP diastolic 56–83
[2022-06-22] MEDS: ALBUTEROL/IPRATROPIUM 3 ML NEB NEB SCH ×4 (00:15→19:55)
[2022-06-22 05:19] LABS: ALBUMIN 2.5 g/dL (3.5-5.0); ALBUMIN/GLOBULIN RATIO 0.7 (0.8-2.0); ANION GAP 13.4 mmol/L (8-16); CALCIUM 8.9 mg/dL (8.4-10.2); CREATININE, SERUM 1.08 mg/dL (0.72-1.25); POTASSIUM 4.4 mmol/L (3.5-5.1)
[2022-06-22] MEDS: FUROSEMIDE 20 MG TAB PO SCH ×2 (05:48→18:51)
[2022-06-22] MEDS: FLUCONAZOLE 100 MG TAB PO SCH (10:00)
[2022-06-22] MEDS: NIFEDIPINE CR 30 MG TAB PO SCH ×2 (10:01→17:29)
[2022-06-22] MEDS: METOPROLOL SUCCINATE 50 MG TAB XL PO SCH (10:02)
[2022-06-22] MEDS: INSULIN REGULAR, HUMAN 100 UNIT/1 ML SQ SCH ×3 (10:20→17:29)
[2022-06-22] MEDS: RIVAROXABAN 15 MG TABLET PO SCH (17:29)
[2022-06-22] MEDS: PANTOPRAZOLE SOD 40 MG TABEC PO SCH (21:16)
[2022-06-22] MEDS: ATORVASTATIN 10 MG TAB PO SCH (21:16)
[2022-06-22] MEDS: MONTELUKAST SODIUM 10 MG TAB PO SCH (21:16)
[2022-06-22] MEDS: MELATONIN 3 MG TAB PO SCH (21:17)
[2022-06-22] MEDS: INSULIN GLARGINE 100 UNITS/ML VIAL SQ SCH (21:24)
[2022-06-23] VITALS (9 sets, daily range): BP systolic 131–152; BP diastolic 56–68
[2022-06-23] MEDS: ALBUTEROL/IPRATROPIUM 3 ML NEB NEB SCH ×3 (00:15→20:55)
[2022-06-23] MEDS: FUROSEMIDE 20 MG TAB PO SCH ×2 (06:33→17:25)
[2022-06-23] MEDS: SALMETEROL/FLUTICASONE 250/50 INH SCH (07:25)
[2022-06-23] MEDS: INSULIN REGULAR, HUMAN 100 UNIT/1 ML SQ SCH ×3 (07:30→16:30)
[2022-06-23] MEDS: METOPROLOL SUCCINATE 50 MG TAB XL PO SCH (09:26)
[2022-06-23] MEDS: FLUCONAZOLE 100 MG TAB PO SCH (09:26)
[2022-06-23] MEDS: NIFEDIPINE CR 30 MG TAB PO SCH ×2 (09:26→17:26)
[2022-06-23] MEDS ORDERED: SODIUM CHLORIDE 0.9% 250ML 250 ML ONE (10:59)
[2022-06-23] MEDS: ACETAMINOPHEN 325 MG TAB PO PRN ×2 (11:32→17:24)
[2022-06-23] MEDS: IRON SUCROSE 100 MG in SODIUM CHLORIDE 0.9% 100 ML IV SCH (11:32)
[2022-06-23] MEDS: RIVAROXABAN 15 MG TABLET PO SCH (17:25)
[2022-06-23] MEDS: ATORVASTATIN 10 MG TAB PO SCH (20:42)
[2022-06-23] MEDS: MONTELUKAST SODIUM 10 MG TAB PO SCH (20:42)
[2022-06-23] MEDS: PANTOPRAZOLE SOD 40 MG TABEC PO SCH (20:43)
[2022-06-23] MEDS: MELATONIN 3 MG TAB PO SCH (20:43)
[2022-06-23] MEDS: INSULIN GLARGINE 100 UNITS/ML VIAL SQ SCH (20:57)
[2022-06-24] VITALS (8 sets, daily range): BP systolic 120–151; BP diastolic 56–77
[2022-06-24] MEDS: ALBUTEROL/IPRATROPIUM 3 ML NEB NEB SCH ×4 (02:50→20:10)
[2022-06-24] MEDS: ACETAMINOPHEN 325 MG TAB PO PRN (04:45)
[2022-06-24 05:49] LABS: BASOPHILS % 0.4 % (0.0-1.0); EOSINOPHILS # (AUTO) 0.2 (0.0-0.4); EOSINOPHILS % 2.4 % (0.0-6.0); HEMATOCRIT 26.7 % (38.2-49.6); HEMOGLOBIN 8.8 g/dL (14.0-18.0); LYMPHOCYTES # (AUTO) 1.3 (1.0-3.2); MEAN CORPUSCULAR HEMOGLOBIN 29.4 pg (28-32); MEAN CORPUSCULAR VOLUME 89.3 fL (81-99); MONOCYTES # (AUTO) 0.8 (0.2-0.8); MONOCYTES % 8.1 % (4.4-11.3); NEUTROPHILS # (AUTO) 6.9 (2.1-6.9); PLATELET COUNT 194 x10e3/uL (140-360); RED BLOOD COUNT 2.99 x10e6/uL (4.3-5.7); RED CELL DISTRIBUTION WIDTH 14.9 % (11.7-14.4)
[2022-06-24 06:06] LABS: ANION GAP 16.2 mmol/L (8-16); CALCIUM 9.4 mg/dL (8.4-10.2); CREATININE, SERUM 1.26 mg/dL (0.72-1.25); POTASSIUM 4.2 mmol/L (3.5-5.1)
[2022-06-24 06:08] LABS: MAGNESIUM 1.4 MG/DL (1.3-2.1); PHOSPHORUS 3.2 MG/DL (2.3-4.7)
[2022-06-24] MEDS: FUROSEMIDE 20 MG TAB PO SCH ×2 (06:48→16:49)
[2022-06-24] MEDS: SALMETEROL/FLUTICASONE 250/50 INH SCH (07:11)
[2022-06-24] MEDS: INSULIN REGULAR, HUMAN 100 UNIT/1 ML SQ SCH ×3 (07:30→16:31)
[2022-06-24] MEDS ORDERED: MAGNESIUM SULFATE 2GM/50ML IV ONE (08:30)
[2022-06-24] MEDS ORDERED: MAGNESIUM SULFATE 2GM/50ML 50 ML IV ONE (09:00)
[2022-06-24] MEDS: FLUCONAZOLE 100 MG TAB PO SCH (09:30)
[2022-06-24] MEDS: NIFEDIPINE CR 30 MG TAB PO SCH ×2 (09:30→16:50)
[2022-06-24] MEDS: METOPROLOL SUCCINATE 50 MG TAB XL PO SCH (09:31)
[2022-06-24] MEDS: METOLAZONE 5 MG TAB PO SCH (09:33)
[2022-06-24] MEDS: IRON SUCROSE 100 MG in SODIUM CHLORIDE 0.9% 100 ML IV SCH (09:34)
[2022-06-24] MEDS: RIVAROXABAN 15 MG TABLET PO SCH (16:49)
[2022-06-24] MEDS: PANTOPRAZOLE SOD 40 MG TABEC PO SCH (20:18)
[2022-06-24] MEDS: MONTELUKAST SODIUM 10 MG TAB PO SCH (20:18)
[2022-06-24] MEDS: MELATONIN 3 MG TAB PO SCH (20:18)
[2022-06-24] MEDS: ATORVASTATIN 10 MG TAB PO SCH (20:18)
[2022-06-24] MEDS: INSULIN GLARGINE 100 UNITS/ML VIAL SQ SCH (20:19)
[2022-06-25] VITALS (9 sets, daily range): BP systolic 129–142; BP diastolic 53–68
[2022-06-25] MEDS: ALBUTEROL/IPRATROPIUM 3 ML NEB NEB SCH ×4 (02:20→19:32)
[2022-06-25] MEDS: FUROSEMIDE 20 MG TAB PO SCH ×2 (05:23→17:04)
[2022-06-25 06:06] LABS: BASOPHILS % 0.4 % (0.0-1.0); EOSINOPHILS # (AUTO) 0.3 (0.0-0.4); EOSINOPHILS % 2.8 % (0.0-6.0); HEMATOCRIT 26.2 % (38.2-49.6); HEMOGLOBIN 8.6 g/dL (14.0-18.0); LYMPHOCYTES # (AUTO) 1.2 (1.0-3.2); LYMPHOCYTES % 13.3 % (18.0-39.1); MEAN CORPUSCULAR HEMOGLOBIN 29.4 pg (28-32); MEAN CORPUSCULAR HGB CONC 32.8 g/dL (31-35); MEAN CORPUSCULAR VOLUME 89.4 fL (81-99); MONOCYTES # (AUTO) 0.7 (0.2-0.8); MONOCYTES % 7.9 % (4.4-11.3); NEUTROPHILS # (AUTO) 6.7 (2.1-6.9); NEUTROPHILS % 74.6 % (38.7-80.0); PLATELET COUNT 186 x10e3/uL (140-360); RED BLOOD COUNT 2.93 x10e6/uL (4.3-5.7); RED CELL DISTRIBUTION WIDTH 14.9 % (11.7-14.4)
[2022-06-25 06:28] LABS: ANION GAP 12.9 mmol/L (8-16); CALCIUM 9.2 mg/dL (8.4-10.2); CREATININE, SERUM 1.27 mg/dL (0.72-1.25); POTASSIUM 3.9 mmol/L (3.5-5.1)
[2022-06-25] MEDS: INSULIN REGULAR, HUMAN 100 UNIT/1 ML SQ SCH ×3 (09:28→16:28)
[2022-06-25] MEDS: METOLAZONE 5 MG TAB PO SCH (09:31)
[2022-06-25] MEDS: NIFEDIPINE CR 30 MG TAB PO SCH ×2 (09:32→17:04)
[2022-06-25] MEDS: METOPROLOL SUCCINATE 50 MG TAB XL PO SCH (09:32)
[2022-06-25] MEDS: FLUCONAZOLE 100 MG TAB PO SCH (09:33)
[2022-06-25] MEDS: ACETAMINOPHEN 325 MG TAB PO PRN (09:37)
[2022-06-25] MEDS: IRON SUCROSE 100 MG in SODIUM CHLORIDE 0.9% 100 ML IV SCH (09:39)
[2022-06-25] MEDS: SALMETEROL/FLUTICASONE 250/50 INH SCH (10:45)
[2022-06-25 12:56] LABS: CLARITY,URINE SL CLOUDY (CLEAR); COLOR,URINE YELLOW (YELLOW); KETONES,URINE NEGATIVE (NEGATIVE); LEUKOCYTE ESTERASE ,URINE SMALL (NEGATIVE); NITRITE,URINE NEGATIVE (NEGATIVE); PROTEIN,URINE DIPSTICK 2+ (NEGATIVE); URINE UROBILINOGEN 0.2 mg/dL (0.2 - 1)
[2022-06-25 13:10] LABS: BACTERIA,URINE FEW /HPF; EPITHELIAL CELLS,URINE FEW /LPF; WBC,URINE (MAN) >50 /HPF (0-5)
[2022-06-25 13:11] LABS: YEAST,URINE FEW
[2022-06-25] MEDS: RIVAROXABAN 15 MG TABLET PO SCH (17:04)
[2022-06-25] MEDS: MELATONIN 3 MG TAB PO SCH (20:07)
[2022-06-25] MEDS: ATORVASTATIN 10 MG TAB PO SCH (20:08)
[2022-06-25] MEDS: PANTOPRAZOLE SOD 40 MG TABEC PO SCH (20:08)
[2022-06-25] MEDS: MONTELUKAST SODIUM 10 MG TAB PO SCH (20:08)
[2022-06-25] MEDS: INSULIN GLARGINE 100 UNITS/ML VIAL SQ SCH (20:20)
[2022-06-26] VITALS (8 sets, daily range): BP systolic 123–145; BP diastolic 52–70
[2022-06-26] MEDS: ALBUTEROL/IPRATROPIUM 3 ML NEB NEB SCH ×4 (00:45→19:35)
[2022-06-26] MEDS: ACETAMINOPHEN 325 MG TAB PO PRN (01:25)
[2022-06-26] MEDS: FUROSEMIDE 20 MG TAB PO SCH ×2 (05:48→17:40)
[2022-06-26] MEDS: INSULIN REGULAR, HUMAN 100 UNIT/1 ML SQ SCH ×3 (07:30→16:36)
[2022-06-26 09:00] LABS: BASOPHILS % 0.4 % (0.0-1.0); EOSINOPHILS # (AUTO) 0.2 (0.0-0.4); HEMATOCRIT 26.5 % (38.2-49.6); HEMOGLOBIN 8.3 g/dL (14.0-18.0); LYMPHOCYTES # (AUTO) 1.1 (1.0-3.2); LYMPHOCYTES % 13.2 % (18.0-39.1); MEAN CORPUSCULAR HEMOGLOBIN 29.1 pg (28-32); MEAN CORPUSCULAR HGB CONC 31.3 g/dL (31-35); MONOCYTES # (AUTO) 0.7 (0.2-0.8); MONOCYTES % 8.5 % (4.4-11.3); NEUTROPHILS % 75.3 % (38.7-80.0); PLATELET COUNT 181 x10e3/uL (140-360); RED BLOOD COUNT 2.85 x10e6/uL (4.3-5.7); RED CELL DISTRIBUTION WIDTH 14.6 % (11.7-14.4)
[2022-06-26] MEDS: METOPROLOL SUCCINATE 50 MG TAB XL PO SCH (09:05)
[2022-06-26] MEDS: FLUCONAZOLE 100 MG TAB PO SCH (09:05)
[2022-06-26] MEDS: NIFEDIPINE CR 30 MG TAB PO SCH ×2 (09:06→16:45)
[2022-06-26] MEDS: METOLAZONE 5 MG TAB PO SCH (09:06)
[2022-06-26] MEDS: IRON SUCROSE 100 MG in SODIUM CHLORIDE 0.9% 100 ML IV SCH (09:06)
[2022-06-26] MEDS: SALMETEROL/FLUTICASONE 250/50 INH SCH (12:50)
[2022-06-26] MEDS: ATORVASTATIN 10 MG TAB PO SCH (22:50)
[2022-06-26] MEDS: MONTELUKAST SODIUM 10 MG TAB PO SCH (22:50)
[2022-06-26] MEDS: PANTOPRAZOLE SOD 40 MG TABEC PO SCH (22:50)
[2022-06-26] MEDS: MELATONIN 3 MG TAB PO SCH (22:50)
[2022-06-26] MEDS: INSULIN GLARGINE 100 UNITS/ML VIAL SQ SCH (22:52)
[2022-06-27] VITALS (8 sets, daily range): BP systolic 109–149; BP diastolic 49–99
[2022-06-27] MEDS: ALBUTEROL/IPRATROPIUM 3 ML NEB NEB SCH ×4 (00:20→19:30)
[2022-06-27] MEDS: FUROSEMIDE 20 MG TAB PO SCH (05:19)
[2022-06-27] MEDS: ACETAMINOPHEN 325 MG TAB PO PRN (05:23)
[2022-06-27] MEDS: SALMETEROL/FLUTICASONE 250/50 INH SCH (06:38)
[2022-06-27 06:48] LABS: BASOPHILS # (AUTO) 0.1 (0.0-0.1); BASOPHILS % 0.9 % (0.0-1.0); EOSINOPHILS # (AUTO) 0.2 (0.0-0.4); HEMOGLOBIN 8.6 g/dL (14.0-18.0); LYMPHOCYTES # (AUTO) 1.2 (1.0-3.2); LYMPHOCYTES % 13.1 % (18.0-39.1); MEAN CORPUSCULAR HEMOGLOBIN 29.3 pg (28-32); MEAN CORPUSCULAR HGB CONC 33.1 g/dL (31-35); MEAN CORPUSCULAR VOLUME 88.4 fL (81-99); MONOCYTES # (AUTO) 0.9 (0.2-0.8); MONOCYTES % 9.7 % (4.4-11.3); NEUTROPHILS # (AUTO) 6.8 (2.1-6.9); NEUTROPHILS % 73.4 % (38.7-80.0); PLATELET COUNT 208 x10e3/uL (140-360); RED BLOOD COUNT 2.94 x10e6/uL (4.3-5.7); RED CELL DISTRIBUTION WIDTH 14.7 % (11.7-14.4)
[2022-06-27] MEDS: INSULIN REGULAR, HUMAN 100 UNIT/1 ML SQ SCH ×3 (07:30→17:16)
[2022-06-27] MEDS ORDERED: SODIUM CHLORIDE 0.9% 0 ML ONE (07:39)
[2022-06-27 07:55] LABS: ANION GAP 20.2 mmol/L (8-16); CALCIUM 9.4 mg/dL (8.4-10.2); CREATININE, SERUM 1.49 mg/dL (0.72-1.25); POTASSIUM 4.2 mmol/L (3.5-5.1)
[2022-06-27] MEDS: FLUCONAZOLE 100 MG TAB PO SCH (08:53)
[2022-06-27] MEDS: NIFEDIPINE CR 30 MG TAB PO SCH (08:54)
[2022-06-27] MEDS: METOLAZONE 5 MG TAB PO SCH (08:54)
[2022-06-27] MEDS: IRON SUCROSE 100 MG in SODIUM CHLORIDE 0.9% 100 ML IV SCH (08:55)
[2022-06-27] MEDS: METOPROLOL SUCCINATE 50 MG TAB XL PO SCH (08:55)
[2022-06-27] MEDS: METHYLPREDNISOLONE SOD SUCC 40 MG/ML VIAL 1ML IV SCH ×2 (11:12→21:44)
[2022-06-27] MEDS: FUROSEMIDE 40 MG TAB PO SCH (12:11)
[2022-06-27] MEDS: SPIRONOLACTONE 25 MG TAB PO SCH (17:14)
[2022-06-27] MEDS: MONTELUKAST SODIUM 10 MG TAB PO SCH (21:44)
[2022-06-27] MEDS: MELATONIN 3 MG TAB PO SCH (21:44)
[2022-06-27] MEDS: PANTOPRAZOLE SOD 40 MG TABEC PO SCH (21:44)
[2022-06-27] MEDS: INSULIN GLARGINE 100 UNITS/ML VIAL SQ SCH (21:44)
[2022-06-27] MEDS: ATORVASTATIN 10 MG TAB PO SCH (21:44)
[2022-06-28] VITALS (8 sets, daily range): BP systolic 110–134; BP diastolic 51–69
[2022-06-28] MEDS: ALBUTEROL/IPRATROPIUM 3 ML NEB NEB SCH ×4 (01:10→19:40)
[2022-06-28] MEDS: ACETAMINOPHEN 325 MG TAB PO PRN (05:11)
[2022-06-28 06:40] LABS: ANION GAP 17.7 mmol/L (8-16); CREATININE, SERUM 1.68 mg/dL (0.72-1.25); POTASSIUM 4.7 mmol/L (3.5-5.1)
[2022-06-28] MEDS: SALMETEROL/FLUTICASONE 250/50 INH SCH (07:00)
[2022-06-28] MEDS: FLUCONAZOLE 100 MG TAB PO SCH (08:54)
[2022-06-28] MEDS: METOPROLOL SUCCINATE 50 MG TAB XL PO SCH (08:55)
[2022-06-28] MEDS: FUROSEMIDE 40 MG TAB PO SCH ×2 (08:55→13:00)
[2022-06-28] MEDS: METHYLPREDNISOLONE SOD SUCC 40 MG/ML VIAL 1ML IV SCH (08:56)
[2022-06-28] MEDS: SPIRONOLACTONE 25 MG TAB PO SCH ×2 (08:56→16:59)
[2022-06-28] MEDS: INSULIN REGULAR, HUMAN 100 UNIT/1 ML SQ SCH ×3 (09:03→17:09)
[2022-06-28] MEDS: MONTELUKAST SODIUM 10 MG TAB PO SCH (20:39)
[2022-06-28] MEDS: NIFEDIPINE CR 30 MG TAB PO SCH (20:39)
[2022-06-28] MEDS: ATORVASTATIN 10 MG TAB PO SCH (20:39)
[2022-06-28] MEDS: MELATONIN 3 MG TAB PO SCH (20:39)
[2022-06-28] MEDS: INSULIN GLARGINE 100 UNITS/ML VIAL SQ SCH (20:39)
[2022-06-28] MEDS: PANTOPRAZOLE SOD 40 MG TABEC PO SCH (20:39)
[2022-06-28] MEDS ORDERED: METHYLPREDNISOLONE SOD SUCC 40 MG/ML VIAL 1ML IV SCH (21:00)
[2022-06-29] VITALS (8 sets, daily range): BP systolic 124–139; BP diastolic 51–69
[2022-06-29] MEDS: ALBUTEROL/IPRATROPIUM 3 ML NEB NEB SCH ×4 (00:43→19:25)
[2022-06-29 06:34] LABS: ANION GAP 17.5 mmol/L (8-16); CREATININE, SERUM 1.68 mg/dL (0.72-1.25); POTASSIUM 4.5 mmol/L (3.5-5.1)
[2022-06-29] MEDS: INSULIN REGULAR, HUMAN 100 UNIT/1 ML SQ SCH ×3 (08:50→17:08)
[2022-06-29] MEDS ORDERED: INSULIN GLARGINE 100 UNITS/ML VIAL SQ ONE (09:00)
[2022-06-29] MEDS ORDERED: METHYLPREDNISOLONE SOD SUCC 40 MG/ML VIAL 1ML IV SCH (09:00)
[2022-06-29] MEDS: METOPROLOL SUCCINATE 50 MG TAB XL PO SCH (09:29)
[2022-06-29] MEDS: SPIRONOLACTONE 25 MG TAB PO SCH ×2 (09:30→17:01)
[2022-06-29] MEDS: FUROSEMIDE 40 MG TAB PO SCH ×2 (09:30→11:56)
[2022-06-29] MEDS: SALMETEROL/FLUTICASONE 250/50 INH SCH (13:50)
[2022-06-29] MEDS: AMMONIUM LACTATE 12% LOTION 225GM BTL TOP SCH (17:09)
[2022-06-29] MEDS: MONTELUKAST SODIUM 10 MG TAB PO SCH (21:26)
[2022-06-29] MEDS: PANTOPRAZOLE SOD 40 MG TABEC PO SCH (21:26)
[2022-06-29] MEDS: NIFEDIPINE CR 30 MG TAB PO SCH (21:27)
[2022-06-29] MEDS: MELATONIN 3 MG TAB PO SCH (21:28)
[2022-06-29] MEDS: ATORVASTATIN 10 MG TAB PO SCH (21:28)
[2022-06-29] MEDS: INSULIN GLARGINE 100 UNITS/ML VIAL SQ SCH (21:35)
[2022-06-30] MEDS: ALBUTEROL/IPRATROPIUM 3 ML NEB NEB SCH ×2 (00:47→07:02)
[2022-06-30 00:48] VITALS: BP 135/83
[2022-06-30 05:26] VITALS: BP 110/58
[2022-06-30 05:54] LABS: BASOPHILS % 0.1 % (0.0-1.0); EOSINOPHILS % 0.3 % (0.0-6.0); HEMATOCRIT 26.1 % (38.2-49.6); HEMOGLOBIN 8.6 g/dL (14.0-18.0); LYMPHOCYTES # (AUTO) 1.2 (1.0-3.2); LYMPHOCYTES % 11.3 % (18.0-39.1); MEAN CORPUSCULAR HEMOGLOBIN 29.1 pg (28-32); MEAN CORPUSCULAR VOLUME 88.2 fL (81-99); MONOCYTES # (AUTO) 0.7 (0.2-0.8); MONOCYTES % 7.2 % (4.4-11.3); NEUTROPHILS # (AUTO) 8.2 (2.1-6.9); NEUTROPHILS % 80.4 % (38.7-80.0); PLATELET COUNT 252 x10e3/uL (140-360); RED BLOOD COUNT 2.96 x10e6/uL (4.3-5.7); RED CELL DISTRIBUTION WIDTH 15.2 % (11.7-14.4)
[2022-06-30 06:24] LABS: ANION GAP 16.3 mmol/L (8-16); CALCIUM 9.1 mg/dL (8.4-10.2); CREATININE, SERUM 1.75 mg/dL (0.72-1.25); POTASSIUM 4.3 mmol/L (3.5-5.1)
[2022-06-30 08:37] VITALS: BP 160/68
[2022-06-30] MEDS: INSULIN REGULAR, HUMAN 100 UNIT/1 ML SQ SCH (08:39)
[2022-06-30] MEDS: METOPROLOL SUCCINATE 50 MG TAB XL PO SCH (08:49)
[2022-06-30] MEDS: AMMONIUM LACTATE 12% LOTION 225GM BTL TOP SCH (08:49)
[2022-06-30] MEDS: FUROSEMIDE 40 MG TAB PO SCH (08:49)
[2022-06-30] MEDS: SPIRONOLACTONE 25 MG TAB PO SCH (08:49)
[2022-06-30] MEDS ORDERED: PREDNISONE 10 MG TAB PO SCH (09:00)
== END 2022-06-30 10:57 | disposition home or self-care (01) | DRG 291 ==
LOC: ER 19:30 → ERHOLD 21:08 → INTOOBSV 21:08 → MED/SURG2 06-10 14:30 → MED/SURG3 06-11 12:05 → UNMERGE 06-11 15:02 → MERGE 06-11 15:02 → OBSVTOIN 06-11 15:02 → ICU 06-12 01:54 → MED/SURG3 06-22 19:02
PROVIDERS: ADMIT Internal Medicine; ATTEND Internal Medicine
PROC: 5A09357 Assistance with Respiratory Ventilation, Less than 24 Consecutive Hours, Continuous Positive Airway Pressure (ICD-10-PCS; principal; 2022-06-12)
DX: I13.0 Hypertensive heart and chronic kidney disease with heart failure and stage 1 through stage 4 chronic kidney disease, or unspecified chronic kidney disease (principal); G93.41 Metabolic encephalopathy; J96.01 Acute respiratory failure with hypoxia; J69.0 Pneumonitis due to inhalation of food and vomit; I50.33 Acute on chronic diastolic (congestive) heart failure; N17.0 Acute kidney failure with tubular necrosis; J18.9 Pneumonia, unspecified organism; J44.1 Chronic obstructive pulmonary disease with (acute) exacerbation; D62 Acute posthemorrhagic anemia; I48.92 Unspecified atrial flutter; B37.49 Other urogenital candidiasis; J45.901 Unspecified asthma with (acute) exacerbation; J44.0 Chronic obstructive pulmonary disease with (acute) lower respiratory infection; I48.20 Chronic atrial fibrillation, unspecified; Z87.440 Personal history of urinary (tract) infections; Z87.898 Personal history of other specified conditions; N40.1 Benign prostatic hyperplasia with lower urinary tract symptoms; R33.8 Other retention of urine; G47.33 Obstructive sleep apnea (adult) (pediatric); Z86.73 Personal history of transient ischemic attack (TIA), and cerebral infarction without residual deficits; Z95.0 Presence of cardiac pacemaker; G31.84 Mild cognitive impairment of uncertain or unknown etiology; I25.10 Atherosclerotic heart disease of native coronary artery without angina pectoris; I25.2 Old myocardial infarction; Z79.4 Long term (current) use of insulin; Z88.0 Allergy status to penicillin; E66.01 Morbid (severe) obesity due to excess calories; Z68.35 Body mass index [BMI] 35.0-35.9, adult; Z91.81 History of falling; N47.1 Phimosis; I27.20 Pulmonary hypertension, unspecified; Z79.01 Long term (current) use of anticoagulants; Z99.81 Dependence on supplemental oxygen; R31.0 Gross hematuria; D50.9 Iron deficiency anemia, unspecified; Z95.2 Presence of prosthetic heart valve; N18.30 Chronic kidney disease, stage 3 unspecified; E11.22 Type 2 diabetes mellitus with diabetic chronic kidney disease; E11.65 Type 2 diabetes mellitus with hyperglycemia; J06.9 Acute upper respiratory infection, unspecified; S05.10XA Contusion of eyeball and orbital tissues, unspecified eye, initial encounter; W19.XXXA Unspecified fall, initial encounter; W06.XXXA Fall from bed, initial encounter; Y93.89 Activity, other specified; Y92.230 Patient room in hospital as the place of occurrence of the external cause; Z20.822 Contact with and (suspected) exposure to COVID-19
CPT/HCPCS: 36415; 36600; 70450; 70486; 71045; 71250; 74176; 74230; 80048; 80053; 81001; 82550; 82553; 82805; 82948; 83540; 83605; 83735; 83880; 84100; 84132; 84466; 84484; 85025; 87040; 87071; 87086; 87205; 93005; 93306; 94640; 94660; 94664; 94799; 96361; 96372; 99251; 99284; G0378; J0360; J0692; J1756; J1815; J1817; J1940; J2185; J2920; J2930; J3370; J3475; J7030; J7050; J7512; Q0162

== ENCOUNTER 2022-07-18 23:09 | Inpatient (IN) | payer MEDICARE ==
[~2022-07-18] VITALS: Ht 177.8 cm; Wt 102.3 kg
[~2022-07-18 23:09] MED LIST changes: +ACETAMINOPHEN325 M1 PO; +BISACODYL5 MG PO; +DULCOLAX SUPP10 MG RC; +FERROUS SULFAT325 MG PO; +HUMULIN R100 UNIT/2 INJ; +TRADJENTA5 MG PO; +TRIAMCINOLONE A15 G1 TOP; +VITAMIN D3 MA125 MCG PO; +XARELTO15 MG PO
[2022-07-18 23:40] LABS: BASOPHILS # (AUTO) 0.1 (0.0-0.1); BASOPHILS % 0.5 % (0.0-1.0); CLARITY,URINE SL CLOUDY (CLEAR); COLOR,URINE YELLOW (YELLOW); EOSINOPHILS # (AUTO) 0.1 (0.0-0.4); HEMATOCRIT 37.7 % (38.2-49.6); HEMOGLOBIN 11.8 g/dL (14.0-18.0); KETONES,URINE NEGATIVE (NEGATIVE); LEUKOCYTE ESTERASE ,URINE NEGATIVE (NEGATIVE); LYMPHOCYTES # (AUTO) 1.9 (1.0-3.2); LYMPHOCYTES % 18.7 % (18.0-39.1); MEAN CORPUSCULAR HEMOGLOBIN 30.1 pg (28-32); MEAN CORPUSCULAR HGB CONC 31.3 g/dL (31-35); MEAN CORPUSCULAR VOLUME 96.2 fL (81-99); MONOCYTES # (AUTO) 0.6 (0.2-0.8); MONOCYTES % 6.1 % (4.4-11.3); NEUTROPHILS # (AUTO) 7.3 (2.1-6.9); NEUTROPHILS % 72.7 % (38.7-80.0); NITRITE,URINE NEGATIVE (NEGATIVE); PLATELET COUNT 167 x10e3/uL (140-360); PROTEIN,URINE DIPSTICK 1+ (NEGATIVE); RED BLOOD COUNT 3.92 x10e6/uL (4.3-5.7); RED CELL DISTRIBUTION WIDTH 15.2 % (11.7-14.4); URINE UROBILINOGEN 0.2 mg/dL (0.2 - 1)
[2022-07-18 23:41] LABS: BACTERIA,URINE FEW /HPF; EPITHELIAL CELLS,URINE RARE /LPF; RBC,URINE 0-5 /HPF (0-5); WBC,URINE (MAN) 21-50 /HPF (0-5)
[2022-07-18 23:42] LABS: YEAST,URINE FEW
[2022-07-18 23:47] LABS: INR 1.32; PARTIAL THROMBOPLASTIN TIME 28.6 seconds (23.8-35.5); PROTHROMBIN TIME 17.5 seconds (11.9-14.5)
[2022-07-18 23:55] LABS: ALBUMIN 3.4 g/dL (3.5-5.0); ALBUMIN/GLOBULIN RATIO 0.9 (0.8-2.0); ANION GAP 22.8 mmol/L (8-16); CALCIUM 8.7 mg/dL (8.4-10.2); CREATININE, SERUM 1.93 mg/dL (0.72-1.25); POTASSIUM 4.8 mmol/L (3.5-5.1)
[2022-07-19] MEDS ORDERED: INSULIN REGULAR, HUMAN 100 UNIT/1 ML SQ ONE
[2022-07-19] MEDS ORDERED: ONDANSETRON HCL INJ 2MG/ML 2ML 2 MG/ML VIAL IV PRN (01:45)
[2022-07-19] MEDS ORDERED: DEXTROSE 50% SYRINGE 50 ML IV PRN (01:45)
[2022-07-19 03:05] VITALS: BP 156/63
[2022-07-19 05:39] VITALS: BP 139/71
[2022-07-19 08:00] VITALS: BP_SYST 139; BP_SYST 159; BP_DIAS 66; BP_DIAS 71
[2022-07-19] MEDS ORDERED: BISACODYL 5 MG TAB EC PO PRN (11:00)
[2022-07-19] MEDS ORDERED: TRIAMCINOLONE ACET 0.1% CREAM 15 GM TUBE TOP PRN (11:00)
[2022-07-19] MEDS ORDERED: IPRATROPIUM/ALBUTEROL SULFATE 4 GM INH INH PRN (11:00)
[2022-07-19] MEDS: INSULIN REGULAR, HUMAN 100 UNIT/1 ML SQ SCH ×4 (11:01→22:09)
[2022-07-19] MEDS: CEFTRIAXONE 2 GM in SODIUM CHLORIDE 0.9% 100 ML IV SCH (11:02)
[2022-07-19 12:00] VITALS: BP 150/68
[2022-07-19 16:30] VITALS: BP 159/67
[2022-07-19] MEDS: SPIRONOLACTONE 25 MG TAB PO SCH (17:25)
[2022-07-19] MEDS: DOCUSATE SODIUM 100 MG CAP PO SCH (17:25)
[2022-07-19] MEDS: FUROSEMIDE 40 MG TAB PO SCH (17:26)
[2022-07-19] MEDS: FERROUS SULFATE 325 MG TAB PO SCH (17:26)
[2022-07-19 20:00] VITALS: BP_SYST 135; BP_SYST 159; BP_DIAS 55; BP_DIAS 67
[2022-07-19] MEDS: ATORVASTATIN 10 MG TAB PO SCH (22:01)
[2022-07-19] MEDS: MONTELUKAST SODIUM 10 MG TAB PO SCH (22:01)
[2022-07-19] MEDS: PANTOPRAZOLE SOD 40 MG TABEC PO SCH (22:01)
[2022-07-20] VITALS (8 sets, daily range): BP systolic 108–164; BP diastolic 40–96
[2022-07-20 06:11] LABS: BASOPHILS # (AUTO) 0.1 (0.0-0.1); BASOPHILS % 0.7 % (0.0-1.0); EOSINOPHILS # (AUTO) 0.3 (0.0-0.4); EOSINOPHILS % 3.4 % (0.0-6.0); HEMATOCRIT 33.3 % (38.2-49.6); HEMOGLOBIN 11.2 g/dL (14.0-18.0); LYMPHOCYTES # (AUTO) 1.7 (1.0-3.2); LYMPHOCYTES % 18.9 % (18.0-39.1); MEAN CORPUSCULAR HEMOGLOBIN 29.9 pg (28-32); MEAN CORPUSCULAR HGB CONC 33.6 g/dL (31-35); MONOCYTES # (AUTO) 0.7 (0.2-0.8); MONOCYTES % 8.4 % (4.4-11.3); NEUTROPHILS % 67.7 % (38.7-80.0); PLATELET COUNT 137 x10e3/uL (140-360); RED BLOOD COUNT 3.74 x10e6/uL (4.3-5.7); RED CELL DISTRIBUTION WIDTH 14.9 % (11.7-14.4)
[2022-07-20 06:36] LABS: ALBUMIN 2.8 g/dL (3.5-5.0); ALBUMIN/GLOBULIN RATIO 0.9 (0.8-2.0); ANION GAP 15.5 mmol/L (8-16); CREATININE, SERUM 1.32 mg/dL (0.72-1.25); POTASSIUM 3.5 mmol/L (3.5-5.1)
[2022-07-20] MEDS: SALMETEROL/FLUTICASONE 250/50 INH SCH (07:11)
[2022-07-20] MEDS: FERROUS SULFATE 325 MG TAB PO SCH ×2 (09:22→16:24)
[2022-07-20] MEDS: SPIRONOLACTONE 25 MG TAB PO SCH ×2 (09:23→16:25)
[2022-07-20] MEDS: FUROSEMIDE 40 MG TAB PO SCH ×2 (09:23→16:24)
[2022-07-20] MEDS: DOCUSATE SODIUM 100 MG CAP PO SCH ×2 (09:23→16:24)
[2022-07-20] MEDS: CEFTRIAXONE 2 GM in SODIUM CHLORIDE 0.9% 100 ML IV SCH (09:27)
[2022-07-20] MEDS: INSULIN REGULAR, HUMAN 100 UNIT/1 ML SQ SCH ×4 (09:31→21:00)
[2022-07-20] MEDS: RIVAROXABAN 10 MG TABLET PO SCH (09:33)
[2022-07-20] MEDS: INSULIN GLARGINE 100 UNITS/ML VIAL SQ SCH (09:34)
[2022-07-20] MEDS ORDERED: ONDANSETRON HCL 4 MG ORAL DISINTEGRATING TAB PO PRN (10:00)
[2022-07-20] MEDS: MONTELUKAST SODIUM 10 MG TAB PO SCH (21:01)
[2022-07-20] MEDS: PANTOPRAZOLE SOD 40 MG TABEC PO SCH (21:01)
[2022-07-20] MEDS: ATORVASTATIN 10 MG TAB PO SCH (21:02)
[2022-07-21] VITALS (8 sets, daily range): BP systolic 131–178; BP diastolic 50–70
[2022-07-21] MEDS: SALMETEROL/FLUTICASONE 250/50 INH SCH (06:00)
[2022-07-21 06:57] LABS: ANION GAP 16.7 mmol/L (8-16); CALCIUM 8.8 mg/dL (8.4-10.2); CREATININE, SERUM 1.27 mg/dL (0.72-1.25); POTASSIUM 3.7 mmol/L (3.5-5.1)
[2022-07-21] MEDS: CEFTRIAXONE 2 GM in SODIUM CHLORIDE 0.9% 100 ML IV SCH (08:46)
[2022-07-21] MEDS: DOCUSATE SODIUM 100 MG CAP PO SCH ×2 (08:50→17:01)
[2022-07-21] MEDS: FERROUS SULFATE 325 MG TAB PO SCH ×2 (08:50→17:01)
[2022-07-21] MEDS: FUROSEMIDE 40 MG TAB PO SCH ×2 (08:50→17:01)
[2022-07-21] MEDS: SPIRONOLACTONE 25 MG TAB PO SCH ×2 (08:50→17:01)
[2022-07-21] MEDS: RIVAROXABAN 10 MG TABLET PO SCH (08:51)
[2022-07-21] MEDS: INSULIN REGULAR, HUMAN 100 UNIT/1 ML SQ SCH ×4 (08:55→21:18)
[2022-07-21] MEDS: INSULIN GLARGINE 100 UNITS/ML VIAL SQ SCH (08:56)
[2022-07-21] MEDS: MONTELUKAST SODIUM 10 MG TAB PO SCH (21:18)
[2022-07-21] MEDS: PANTOPRAZOLE SOD 40 MG TABEC PO SCH (21:18)
[2022-07-21] MEDS: ACETAMINOPHEN 325 MG TAB PO PRN (21:18)
[2022-07-21] MEDS: ATORVASTATIN 10 MG TAB PO SCH (21:18)
[2022-07-22 05:04] VITALS: BP 154/79
[2022-07-22 08:00] VITALS: BP 154/79
[2022-07-22 08:45] VITALS: BP 176/83
[2022-07-22] MEDS: SALMETEROL/FLUTICASONE 250/50 INH SCH (09:11)
[2022-07-22] MEDS ORDERED: CEFTRIAXONE 2 GM VIAL ONE (10:15)
[2022-07-22] MEDS: CEFTRIAXONE 2 GM in SODIUM CHLORIDE 0.9% 100 ML IV SCH (10:32)
[2022-07-22] MEDS: DOCUSATE SODIUM 100 MG CAP PO SCH ×2 (10:47→18:16)
[2022-07-22] MEDS: RIVAROXABAN 10 MG TABLET PO SCH (10:48)
[2022-07-22] MEDS: FERROUS SULFATE 325 MG TAB PO SCH ×2 (10:49→18:16)
[2022-07-22] MEDS: FUROSEMIDE 40 MG TAB PO SCH ×2 (10:49→18:16)
[2022-07-22] MEDS: SPIRONOLACTONE 25 MG TAB PO SCH ×2 (10:50→18:17)
[2022-07-22] MEDS: INSULIN REGULAR, HUMAN 100 UNIT/1 ML SQ SCH ×4 (10:56→21:00)
[2022-07-22] MEDS: INSULIN GLARGINE 100 UNITS/ML VIAL SQ SCH (10:57)
[2022-07-22 13:13] VITALS: BP 170/80
[2022-07-22 16:24] VITALS: BP 173/70
[2022-07-22 20:00] VITALS: BP_SYST 143; BP_SYST 173; BP_DIAS 51; BP_DIAS 70
[2022-07-22] MEDS: PANTOPRAZOLE SOD 40 MG TABEC PO SCH (21:00)
[2022-07-22] MEDS: ATORVASTATIN 10 MG TAB PO SCH (21:00)
[2022-07-22] MEDS: MONTELUKAST SODIUM 10 MG TAB PO SCH (21:00)
[2022-07-22] MEDS: ACETAMINOPHEN 325 MG TAB PO PRN (21:15)
[2022-07-23] VITALS: BP 154/66
[2022-07-23 04:00] VITALS: BP 152/76
[2022-07-23] MEDS: INSULIN REGULAR, HUMAN 100 UNIT/1 ML SQ SCH (07:30)
[2022-07-23 08:00] VITALS: BP 152/76
[2022-07-23] MEDS: CEFTRIAXONE 2 GM in SODIUM CHLORIDE 0.9% 100 ML IV SCH (09:00)
[2022-07-23] MEDS: INSULIN GLARGINE 100 UNITS/ML VIAL SQ SCH (09:00)
[2022-07-23 09:31] VITALS: BP 175/83
[2022-07-23] MEDS: SALMETEROL/FLUTICASONE 250/50 INH SCH (10:30)
[2022-07-23] MEDS ORDERED: CIPRO250 MG PO (11:30)
[2022-07-23] MEDS ORDERED: DIFLUCAN100 MG PO (11:31)
[2022-07-23] MEDS: FERROUS SULFATE 325 MG TAB PO SCH (12:16)
[2022-07-23] MEDS: RIVAROXABAN 10 MG TABLET PO SCH (12:16)
[2022-07-23] MEDS: DOCUSATE SODIUM 100 MG CAP PO SCH (12:16)
[2022-07-23] MEDS: FUROSEMIDE 40 MG TAB PO SCH (12:17)
[2022-07-23] MEDS: SPIRONOLACTONE 25 MG TAB PO SCH (12:17)
== END 2022-07-23 12:26 | disposition home or self-care (01) | DRG 682 ==
LOC: ER 23:14 → ERHOLD 07-19 01:33 → MED/SURG2 07-19 02:48
PROVIDERS: ADMIT Internal Medicine; ATTEND Internal Medicine
PROC: 8E0ZXY6 Isolation (ICD-10-PCS; principal; 2022-07-19)
DX: N17.9 Acute kidney failure, unspecified (principal); U07.1 COVID-19; N39.0 Urinary tract infection, site not specified; I42.9 Cardiomyopathy, unspecified; I13.0 Hypertensive heart and chronic kidney disease with heart failure and stage 1 through stage 4 chronic kidney disease, or unspecified chronic kidney disease; Z94.0 Kidney transplant status; E11.65 Type 2 diabetes mellitus with hyperglycemia; K21.9 Gastro-esophageal reflux disease without esophagitis; E66.09 Other obesity due to excess calories; Z68.32 Body mass index [BMI] 32.0-32.9, adult; Z91.119 Patient's noncompliance with dietary regimen due to unspecified reason; Z95.0 Presence of cardiac pacemaker; N40.1 Benign prostatic hyperplasia with lower urinary tract symptoms; R33.8 Other retention of urine; Z79.899 Other long term (current) drug therapy; I69.311 Memory deficit following cerebral infarction; I50.9 Heart failure, unspecified; N18.30 Chronic kidney disease, stage 3 unspecified; E11.22 Type 2 diabetes mellitus with diabetic chronic kidney disease
CPT/HCPCS: 0223U; 36415; 70450; 71046; 80048; 80053; 81001; 82550; 82553; 82948; 83036; 83880; 84484; 85025; 85610; 85730; 93005; 94799; 96372; 99284; J0696; J1815; J1817; J7050